=== PATIENT | female | born 1950 | race Caucasian/White ===

== ENCOUNTER 2016-04-07 14:36 | Inpatient (IN) | payer OTHER ==
[~2016-04-07] VITALS: Ht 167.6 cm; Wt 103.0 kg
[~2016-04-07 14:36] MED LIST: ALBINSX NEB; AMIO200T4 PO; CLOP1TAB15 PO; CRG3125 PO; DOCU-94 PO; FAMO20TA11 PO; INSU3INJ3 SQ; IPRASOL4 INH; LEVO125T72 PO; LISI2.5T5 PO; MAGNSUS5 PO; MIRT30TA3 PO; NVLGI SC; NYSS5 PO; OXYC1TAB3 PO; PARO20TA4 PO; PRAM0.754 PO; PRD20 PO; PRENTAB26 PO; PROTEIN PO; ROSU20TA PO; SPR25 PO; TMF75 PO; VENL150C PO
[2016-04-07] MEDS ORDERED: SODIUM CHLORIDE 0.9% 500ML 500 ML IV STA (15:05)
[2016-04-07] MEDS ORDERED: LSN25 PO (15:20)
[2016-04-07] MEDS ORDERED: SYN137 PO (15:20)
[2016-04-07] MEDS ORDERED: ROSU20TA22 PO (15:20)
[2016-04-07] MEDS ORDERED: PXL20 PO (15:20)
[2016-04-07] MEDS ORDERED: EFFSR150 PO (15:20)
[2016-04-07] MEDS ORDERED: EFFSR75 PO (15:20)
[2016-04-07] MEDS ORDERED: FAMO20TA9 PO (15:20)
[2016-04-07] MEDS ORDERED: CARV3.122 PO (15:20)
[2016-04-07] MEDS ORDERED: CRD200 PO (15:20)
[2016-04-07] MEDS ORDERED: INSU1INJ32 SC (15:20)
[2016-04-07] MEDS ORDERED: PLV75 PO (15:20)
[2016-04-07] MEDS ORDERED: SPIR25TA PO (15:29)
[2016-04-07] MEDS ORDERED: ERGO500037 PO (15:34)
[2016-04-07] MEDS ORDERED: SODIUM CHLORIDE 0.9% 1000ML 1,000 ML IV STA ×2 (15:34)
[2016-04-07] MEDS ORDERED: Proair HFA INH (15:34)
--- NOTE | 2016-04-07 15:35 | DIAGNOSTIC IMAGING REPORT ---
SINGLE VIEW CHEST CLINICAL HISTORY: Hyperglycemia. FINDINGS: An AP, portable, upright chest radiograph is compared to study dated 06/01/2015. The examination is degraded by portable technique, large body habitus, and patient rotation. The patient is status post midline sternotomy. The heart is normal for projection and there is atherosclerotic calcification of the thoracic aorta. The pulmonary vasculature is noncongested. There is chronic elevation of the left hemidiaphragm with left basilar atelectasis. Chronic interstitial thickening is unchanged. There is no evidence of airspace consolidation or pleural effusion. No pneumothorax is seen. The skeletal structures are osteopenic. The bony thorax is grossly intact. Surgical anchors are present in the right humeral head. IMPRESSION: No acute cardiopulmonary abnormality. Electronically signed by: Andrew Navarro M.D. 04/07/2016 3:33 PM Dictated Date/Time: 04/07/2016 3:31 PM
[2016-04-07] MEDS ORDERED: ASPI81TA85 PO (15:36)
[2016-04-07] MEDS ORDERED: MULT1CAP7 PO (15:36)
[2016-04-07 16:17] LABS: ALKALINE PHOSPHATASE 127 U/L (45-117); ALT/SGPT 20 U/L (12-78); AST/SGOT 17 U/L (15-37); BETA-HYDROXYBUTYRATE 4.14 mg/dL (0.2-2.81); BLOOD UREA NITROGEN 41 mg/dl (7-18); BUN/CREATININE RATIO 23.9 (10-20); CALCIUM 9.2 mg/dl (8.5-10.1); CARBON DIOXIDE 26 mmol/L (21-32); CHLORIDE 86 mmol/L (98-107); GLUCOSE 519 mg/dl (70-99); POTASSIUM 4.1 mmol/L (3.5-5.1); SODIUM 125 mmol/L (136-145)
[2016-04-07] MEDS ORDERED: NovoLIN-R INSULIN PER UNIT CHARGE IV STA (16:51)
[2016-04-07 16:52] LABS: ALB/GLOB RATIO 0.3 (0.9-2)
[2016-04-07 17:24] LABS: HEMATOCRIT 35.4 % (37-47); MEAN CELL VOLUME 82.9 fL (80-100); MEAN CORPUSCULAR HEMOGLOBIN 29.7 pg (25-34); MEAN CORPUSCULAR HGB CONC 35.9 g/dl (32-36); RED BLOOD COUNT 4.27 M/uL (4.2-5.4)
[2016-04-07] MEDS ORDERED: OXYB5TAB74 PO (17:32)
[2016-04-07] MEDS ORDERED: PREG150C PO ×2 (17:42)
[2016-04-07 17:50] LABS: LYMPH ABS # 0.62 K/uL (1.2-3.4); LYMPHOCYTE % 3.5 %; NEUTROPHILS % 90.4 %; SPHEROCYTE 1+
[2016-04-07 18:22] LABS: COMPLETE YES; MEAN PLATELET VOLUME 12.4 fL (7.4-10.4); PLATELET COUNT 119 K/uL (130-400)
[2016-04-07 18:27] LABS: URINE APPEARANCE TURBID (CLEAR); URINE BILIRUBIN NEG (NEG); URINE COLOR YELLOW; URINE EPITHELIAL CELL AUTO 20-30 /lpf (0-5); URINE NITRITE NEG (NEG); URINE SPECIFIC GRAVITY 1.015 (1.000-1.030); UROBILINOGEN NEG (NEG); ZZUR CULT IF INDIC CLEAN CATCH YES
[2016-04-07 18:28] LABS: MANUAL MICROSCOPIC REQUIRED? NO; REVIEW REQ? YES
[2016-04-07 18:46] LABS: URINE PATH CASTS 1-5 GRANULAR CASTS /lpf (0)
[2016-04-07] MEDS ORDERED: ONDANSETRON INJ 2 MG/ML 2 ML VIAL IV PRN (19:15)
[2016-04-07] MEDS ORDERED: PIPERACILL/TAZOBAC IV 3.375 GM in DEXTROSE 5% 100ML 100 ML IV ONE (19:15)
[2016-04-07] MEDS ORDERED: POLYETHYLENE (MIRALAX) 17 GM PACK PO PRN (19:30)
[2016-04-07] MEDS ORDERED: GLUCOSE 10 TABS/TUBE PO PRN (19:45)
[2016-04-07] MEDS ORDERED: GLUCOSE 40% GEL 15 GM TUBE PO PRN (19:45)
[2016-04-07] MEDS ORDERED: GLUCAGON FOR INJ 1 MG VIAL SQ PRN (19:45)
[2016-04-07] MEDS ORDERED: DEXTROSE 50% 50 ML SYR IV PRN (19:45)
[2016-04-07 20:08] LABS: INR 1.1 (0.9-1.1); PROTHROMBIN TIME (PATIENT) 12.3 SECONDS (9.0-12.0)
[2016-04-07] MEDS ORDERED: NovoLOG PER UNIT CHARGE SC ONE (20:15)
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
[2016-04-07] MEDS ORDERED: TRAM-10 PO (20:36)
[2016-04-07] MEDS ORDERED: NVLGI/PEN SQ (20:41)
[2016-04-07] MEDS ORDERED: PIPERACILL/TAZOBAC CONSULT ACTIVE PRN (20:45)
[2016-04-07] MEDS ORDERED: INSULIN GLARGINE PER UNIT 35 UNITS in SYRINGE 0 ML SC SCH (21:00)
[2016-04-07] MEDS ORDERED: PIPERACILL/TAZOBAC IV 4.5 GM in DEXTROSE 5% 100ML IV ONE (21:30)
[2016-04-07 21:45] VITALS: PULSE 78; O2SAT 93
[2016-04-07] MEDS: ALBUT/IPRATROP 3MG/0.5MG NEB 3 ML VIAL INH SCH (21:45)
[2016-04-07] MEDS: BUDESONIDE 0.5 MG/2 ML VIAL (PULMICORT) INH SCH (21:45)
[2016-04-07] MEDS ORDERED: PIPERACILL/TAZOBAC IV 3.375 GM in DEXTROSE 5% 100ML 100 ML IV SCH (22:00)
[2016-04-07] MEDS: OXYBUTYNIN CHLORIDE 5 MG TAB PO SCH (22:24)
[2016-04-07] MEDS: PREGABALIN 150 MG CAP PO SCH (22:24)
[2016-04-07] MEDS: SODIUM CHLORIDE 0.9% 1000ML 1,000 ML IV SCH (22:25)
[2016-04-07] MEDS: FAMOTIDINE 20 MG TAB PO SCH (22:26)
[2016-04-07] MEDS: MIRTAZAPINE TAB 15 MG TAB PO SCH (22:26)
[2016-04-07] MEDS: PRAMIPEXOLE DIHYDROCHLORIDE 0.25MG TAB PO SCH (22:27)
[2016-04-07] MEDS: INSULIN ASPART 100 UNITS/ML 3 ML PEN SC SCH (22:33)
[2016-04-07] MEDS: HEPARIN SOD 5000 UNIT/0.5 ML CARP SQ SCH (22:33)
[2016-04-07] MEDS: INSULIN GLARGINE SOLOSTAR 100 UNITS/ML 3 ML PEN SC SCH (22:34)
--- NOTE | 2016-04-07 22:37 | EMERGENCY ROOM VISIT NOTE ---
History Report prepared by Annmarie: [place] Curiel Under the Supervision of: Dr. Ken Verma M.D. First contact with patient: 15:24 Chief Complaint: HYPERGLYCEMIA Stated Complaint: ILLNESS/HYPERGLYCEMIA Nursing Triage Summary: PT HERE VIA ALS FROM HOME WITH INCREASED WEAKNESS AND ELEVATED BLOOD SUGAR. PT DENIES ANY NEW PAIN, STATES HAVING LOW BACK PAIN ACROSS FLANK AREAS. PT STATES SLIGHT SOB, HAS SOME SCATTERED RALES. HAS FELT FEVERISH INTERMITTENTLY History of Present Illness The patient is a 65 year old female who presents to the Emergency Room with complaints of worsening hyperglycemia starting four days ago. The patient currently rates her discomfort as a 4/10 in severity. She states that she has been urinating a lot recent;y, however she states that this is normal. The patient states that she has additionally been having a cough. Per the nursing staff, the patient's glucose level was in the 500s. The patient states that she has gotten new insulin, and it has been having some troubles. Per the nursing staff, the patient has not taken her insulin yet today. Pt denies LOC, headache , fevers, chills, diaphoresis, visual changes, neck pain, chest pain, breathing difficulties, nausea, vomiting, abdominal pain, back pain, melena, hematochezia , numbness, weakness, lymphadenopathy, rash, or other complaints. Source of History: patient, nursing staff Onset: four days ago Position: other (global) Symptom Intensity: 4/10 Quality: other (hyperglycemia) Timing: worsening Associated Symptoms: + cough, + urinary symptoms Review of Systems See HPI for pertinent positives and negatives. A total of ten systems were reviewed and were otherwise negative. Past Medical & Surgical Medical Problems: (1) BLANCA (acute kidney injury) (2) Asthma (3) Benign hypertension (4) Dehydration (5) Diabetes mellitus (6) GERD (gastroesophageal reflux disease) (7) Hyperglycemia (8) Hyperlipidemia (9) Hypomagnesemia (10) Influenza A with pneumonia (11) Pneumonia (12) Pneumonia involving right lung (13) UTI (urinary tract infection) Family History No pertinent family history Social History Smoking Status: Never Smoker Alcohol Use: none Drug Use: none Marital Status: single Housing Status: skilled nursing Occupation Status: unemployed Current/Historical Medications Scheduled Amiodarone HCl (Amiodarone HCl), 200 MG PO DAILY Aspirin (Aspirin Dr), 81 MG PO DAILY Carvedilol (Coreg), 3.125 MG PO BIDM Clopidogrel Bisulfate (Clopidogrel), 75 MG PO DAILY Ergocalciferol (Vitamin D 43855 Unit), 50,000 INTER.UNIT PO WK Famotidine (Pepcid), 20 MG PO QPM Insulin Aspart (Novolog Flexpen), 26 UNITS SQ WM Insulin Degludec (Tresiba Flextouch), 60 UNITS SC HS Levothyroxine Sodium (Levothyroxine Sodium), 137 MCG PO DAILY Lisinopril (Lisinopril), 2.5 MG PO DAILY Mirtazapine (Remeron), 30 MG PO HS Multiple Vitamins W/ Minerals (Multi For Her 50+), 1 CAP PO DAILY Oxybutynin Chloride (Ditropan), 5 MG PO BID Paroxetine (Paroxetine HCl), 20 MG PO DAILY Pramipexole Dihydrochloride (Pramipexole Dihydrochlori), 0.75 MG PO QPM Pregabalin (Lyrica), 150 MG PO QAM Pregabalin (Lyrica), 300 MG PO HS Rosuvastatin Calcium (Rosuvastatin Calcium), 20 MG PO DAILY Spironolactone (Aldactone), 25 MG PO BID Venlafaxine Hcl (Effexor Extended Rel), 75 MG PO QAM Venlafaxine Hcl (Effexor Extended Rel), 150 MG PO QAM Scheduled PRN Albuterol Sulf (Albuterol Sulfate), 1 VIAL NEB Q4-6HRS PRN for Wheezing Tramadol (Ultram), 50 MG PO Q8 PRN for Pain [Proair HFA], 2 PUFFS INH Q4-6HRS PRN for Shortness of Breath Allergies Coded Allergies: Clindamycin (Verified Allergy, Severe, RASH, DELUSIONAL, CONVULSIONS, 04/17) Eggs or Egg-derived Products (Verified Allergy, Severe, ANAPHYLAXIS, ) NO FLU VAC. Note: 04/05/12, pt ate eggs for breakfast, dietary requested that pharmacy add egg food allergy. aj Furosemide (Verified Allergy, Severe, ANAPHYLAXIS, 04/17/15) Sulfamethoxazole w/Trimethoprim (Verified Allergy, Intermediate, RASH, ) Amoxicillin (Verified Allergy, Unknown, ., 04/17/15) Atorvastatin (Verified Allergy, Unknown, acute renal failure, 04/17/15) Clavulanic Acid (Verified Allergy, Unknown, ., 04/17/15) Egg (Verified Allergy, Unknown, _, 04/17/15) 04/05/12: ADDED PER DIETARY REQUEST. Latex1 -Allergic Contact Dermititis (Verified Allergy, Unknown, RASH, 04/17) Penicillins (Verified Allergy, Unknown, unknown, 04/17/15) Triamcinolone (Verified Allergy, Unknown, RASH, 04/17/15) Diclofenac (Verified Adverse Reaction, Severe, SKIN SLOTHED FROM HEEL, ) Isopropyl Alcohol (Verified Adverse Reaction, Severe, SKIN SLOTHED FROM HEEL, 04/17/15) Propylene Glycol (Verified Adverse Reaction, Severe, SKIN SLOTHED FROM HEEL, 04/17/15) Acetaminophen (Verified Adverse Reaction, Mild, VOMITING, 04/17/15) Physical Exam Vital Signs Date Time Temp Pulse Resp B/P Pulse Ox O2 Delivery O2 Flow Rate FiO2 04/07/16 18:36 25 04/07/16 17:36 78 27 100 04/07/16 17:08 77 20 114/63 100 Nasal Cannula 3.0 04/07/16 17:07 114/63 04/07/16 16:36 75 16 94 04/07/16 15:58 123/94 04/07/16 15:36 81 19 98 04/07/16 15:30 118/62 04/07/16 15:07 81 04/07/16 14:52 37.6 85 20 115/58 98 Room Air 04/07/16 14:39 115/58 Physical Exam GENERAL: Awake, alert, tired appearing, in no distress HENT: Very dry mucous membranes. Normocephalic, atraumatic. Oropharynx unremarkable. EYES: Normal conjunctiva. Sclera non-icteric. NECK: Supple. No nuchal rigidity. FROM. No JVD. RESPIRATORY: Clear to auscultation. CARDIAC: Regular rate, normal rhythm. Extremities warm and well perfused. Pulses equal. ABDOMEN: Soft, non-distended. No tenderness to palpation. No rebound or guarding. No masses. RECTAL: Deferred. MUSCULOSKELETAL: Chest examination reveals no tenderness. The back is symmetrical on inspection without obvious abnormality. There is no CVA tenderness to palpation. No joint edema. LOWER EXTREMITIES: Calves are equal size bilaterally and non-tender. No edema. No discoloration. NEURO: Normal sensorium. No sensory or motor deficits noted. SKIN: No rash or jaundice noted. Medical Decision & Procedures ER Provider Diagnostic Interpretation: X-ray: Per my interpretation, radiologist review. SINGLE VIEW CHEST CLINICAL HISTORY: Hyperglycemia. FINDINGS: An AP, portable, upright chest radiograph is compared to study dated 06/01/2015. The examination is degraded by portable technique, large body habitus, and patient rotation. The patient is status post midline sternotomy. The heart is normal for projection and there is atherosclerotic calcification of the thoracic aorta. The pulmonary vasculature is noncongested. There is chronic elevation of the left hemidiaphragm with left basilar atelectasis. Chronic interstitial thickening is unchanged. There is no evidence of airspace consolidation or pleural effusion. No pneumothorax is seen. The skeletal structures are osteopenic. The bony thorax is grossly intact. Surgical anchors are present in the right humeral head. IMPRESSION: No acute cardiopulmonary abnormality. Electronically signed by: Andrew Navarro M.D. 04/07/2016 3:33 PM Dictated Date/Time: 04/07/2016 3:31 PM Laboratory Results 04/07/16 16:20 Red Blood Count 4.27, Mean Corpuscular Volume 82.9, Mean Corpuscular Hemoglobin 29.7, Mean Corpuscular Hemoglobin Concent 35.9, Mean Platelet Volume 12.4 04/07/16 15:30 Test 04/07/16 15:30 04/07/16 16:20 04/07/16 17:10 04/07/16 18:00 Anion Gap 13.0 mmol/L (3-11) Est Creatinine Clear Calc Drug Dose 41.0 ml/min Estimated GFR () 36.6 Estimated GFR (Non- 31.5 BUN/Creatinine Ratio 23.9 (10-20) Calcium Level 9.2 mg/dl (8.5-10.1) Total Bilirubin 0.5 mg/dl (0.2-1) Aspartate Amino Transf (AST/SGOT) 17 U/L (15-37) Alanine Aminotransferase (ALT/SGPT) 20 U/L (12-78) Alkaline Phosphatase 127 U/L (45-117) Troponin I < 0.015 ng/ml (0-0.045) Total Protein 7.3 gm/dl (6.4-8.2) Albumin 1.8 gm/dl (3.4-5.0) Globulin 5.5 gm/dl (2.5-4.0) Albumin/Globulin Ratio 0.3 (0.9-2) Beta-Hydroxybutyric Acid 4.14 mg/dL (0.2-2.81) White Blood Count 17.70 K/uL (4.8-10.8) Red Blood Count 4.27 M/uL (4.2-5.4) Hemoglobin 12.7 g/dL (12.0-16.0) Hematocrit 35.4 % (37-47) Mean Corpuscular Volume 82.9 fL (80-100) Mean Corpuscular Hemoglobin 29.7 pg (25-34) Mean Corpuscular Hemoglobin Concent 35.9 g/dl (32-36) Platelet Count 119 K/uL (130-400) Mean Platelet Volume 12.4 fL (7.4-10.4) RDW Standard Deviation 39.5 fL (36.4-46.3) RDW Coefficient of Variation 13.1 % (11.5-14.5) Nucleated RBC Absolute Count (auto) 0.03 K/uL (0-0) Neutrophils % (Manual) 90.4 % Lymphocytes % (Manual) 3.5 % Monocytes % (Manual) 6.1 % Nucleated Red Blood Cells % 0.2 % Neutrophils # (Manual) 16.00 K/uL (1.4-6.5) Total Absolute Neutrophils 16.00 K/uL (1.4-6.5) Lymphocytes # (Manual) 0.62 K/uL (1.2-3.4) Total Absolute Lymphocytes 0.62 K/uL (1.2-3.4) Monocytes # (Manual) 1.08 K/uL (0.11-0.59) Spherocytes 1+ Prothrombin Time 12.3 SECONDS (9.0-12.0) Prothromb Time International Ratio 1.1 (0.9-1.1) Influenza Type A Antigen Neg for Influ A (NEG) Influenza Type B Antigen Neg for Influ B (NEG) Urine Color YELLOW Urine Appearance TURBID (CLEAR) Urine pH 5.0 (4.5-7.5) Urine Specific Mchenry 1.015 (1.000-1.030) Urine Protein 2+ (NEG) Urine Glucose (UA) 3+ (NEG) Urine Ketones NEG (NEG) Urine Occult Blood 2+ (NEG) Urine Nitrite NEG (NEG) Urine Bilirubin NEG (NEG) Urine Urobilinogen NEG (NEG) Urine Leukocyte Esterase TRACE (NEG) Urine WBC (Auto) >30 /hpf (0-5) Urine RBC (Auto) 5-10 /hpf (0-4) Urine Hyaline Casts (Auto) 5-10 /lpf (0-5) Urine Epithelial Cells (Auto) 20-30 /lpf (0-5) Urine Bacteria (Auto) 4+ (NEG) Urine Pathogenic Casts 1-5 GRANULAR CASTS /lpf (0) Laboratory results reviewed by me Medications Administered Medications (Trade) Dose Ordered Sig/Frieda Route Start Time Stop Time Status Last Admin Dose Admin Sodium Chloride 500 ml @ 999 mls/hr Q31M STAT IV 04/07/16 15:05 04/07/16 15:35 DC 04/07/16 15:05 999 MLS/HR Sodium Chloride 1,000 ml @ 999 mls/hr Q1H1M STAT IV 04/07/16 15:34 04/07/16 16:34 DC 04/07/16 15:34 999 MLS/HR Sodium Chloride (Nss 1000ml) 1,000 ml @ 200 mls/hr Q5H STAT IV 04/07/16 15:34 04/07/16 20:57 DC 04/07/16 15:34 200 MLS/HR Insulin Human Regular (novoLIN-R U-100 PER UNIT) 10 units NOW STAT IV 04/07/16 16:51 04/07/16 16:53 DC 04/07/16 17:04 10 UNITS ECG Indication: other (hyperglycemia) Rate (beats per minute): 83 Rhythm: normal sinus Findings: Q waves (Inferior), no acute ischemic change, no ectopy, other (LVH) ED Course 1505: Sodium Chloride 500 ml @ 999 mls/hr IV 1524: The patient was evaluated in room A10. A complete history and physical exam was performed. 1534: Sodium Chloride 1000 ml @ 200 mls/hr IV, Sodium Chloride 1000 ml @ 999 mls /hr IV 1551: Novolin-R U-100 per unit 10 units IV 1723: I reevaluated the patient, and she was resting 1810: I discussed the patient's case with Dr. Alfonso. He is going to evaluate the patient for further treatment 1814: I reassessed the patient, and she states that she was feeling a little better Medical Decision Triage Nursing notes reviewed. The patient's presentation and history were concerning for hyperglycemia and fever. Etiologies such as metabolic, infection, hypo/hyperglycemia, electrolyte abnormalities, cardiac sources, intracerebral event, toxicologic, neurologic, as well as others were entertained. The patient was evaluated. She was dry on physical examination. 2 L of IV fluids were initiated. The patient had blood work obtained. A pseudohyponatremia was noted on chemistry panel. The patient had acute kidney injury with a creatinine that went from 0.8-1.7. The patient's CBC was unremarkable. The patient had a negative troponin and LFTs. Chemistry panel was concerning for severe hyperglycemia. No acidosis present.. The patient had ketosis present. The patient's urinalysis is pending. The patient was given IV insulin 10 units. On reassessment her sugar was slowly coming down the patient was feeling somewhat better. She was sick for many days. Consultation was made with the biological aide. The patient will be admitted. The chart was completed utilizing [employer] Speech voice recognition software. Grammatical errors, random word insertions, pronoun errors, and incomplete sentences are an occasional consequence of this system due to software limitations, ambient noise, and hardware issues. Any formal questions or concerns about the content, text, or information contained within the body of this dictation should be directly addressed to the physician for clarification. Consults Time Called: 1800 Consulting Physician: Dr. Alfonso Returned Call: [phone] I discussed the patient's case with Dr. Alfonso. He is going to evaluate the patient for further treatment Impression Primary Impression: Hyperglycemia Additional Impressions: Dehydration Acute kidney injury Scribe Attestation The scribe's documentation has been prepared under my direction and personally reviewed by me in its entirety. I confirm that the note above accurately reflects all work, treatment, procedures, and medical decision making performed by me. Departure Information Dispostion Being Evaluated By Hospitalist Referrals RV. Gerard MD (PCP) Problem Qualifiers
[2016-04-07 23:39] VITALS: PULSE 78; O2SAT 94
[2016-04-08] VITALS (11 sets, daily range): BP systolic 93–146; BP diastolic 63–75; PULSE 70–85; TEMP 36.5–37.3; O2SAT 90–96; BMI 36.8; BMI 36.6
[2016-04-08] MEDS: PIPERACILL/TAZOBAC IV 4.5 GM in DEXTROSE 5% 100ML IV SCH ×3 (04:10→20:20)
[2016-04-08] MEDS: HEPARIN SOD 5000 UNIT/0.5 ML CARP SQ SCH ×3 (06:40→20:29)
[2016-04-08] MEDS: LEVOTHYROXINE 137 MCG TAB PO SCH (06:47)
[2016-04-08] MEDS: SODIUM CHLORIDE 0.9% 1000ML 1,000 ML IV SCH ×2 (06:47→17:41)
[2016-04-08 07:25] LABS: INR 1.1 (0.9-1.1); PARTIAL THROMBOPLASTIN RATIO 1.2; PROTHROMBIN TIME (PATIENT) 11.8 SECONDS (9.0-12.0)
[2016-04-08] MEDS: ALBUT/IPRATROP 3MG/0.5MG NEB 3 ML VIAL INH SCH ×5 (07:33→19:20)
[2016-04-08] MEDS: BUDESONIDE 0.5 MG/2 ML VIAL (PULMICORT) INH SCH ×2 (07:33→19:20)
[2016-04-08 07:57] LABS: ALB/GLOB RATIO 0.4 (0.9-2); BUN/CREATININE RATIO 34.4 (10-20); CALCIUM 8.6 mg/dl (8.5-10.1); CREATININE 1.4 mg/dl (0.60-1.20); POTASSIUM 3.7 mmol/L (3.5-5.1)
[2016-04-08 08:17] LABS: ESTIMATED AVERAGE GLUCOSE 392 mg/dl; HA1C FLAG Normal (Normal)
[2016-04-08] MEDS: TIOTROPIUM BROMIDE 5 PUFF/90 MCG INH INH SCH (09:11)
[2016-04-08] MEDS: INSULIN ASPART 100 UNITS/ML 3 ML PEN SC SCH ×4 (09:12→20:29)
[2016-04-08] MEDS: CARVEDILOL 3.125 MG TAB PO SCH ×2 (09:13→18:04)
[2016-04-08] MEDS: AMIODARONE 200 MG TAB PO SCH (09:13)
[2016-04-08] MEDS: ASPIRIN 81 MG ECTAB PO SCH (09:14)
[2016-04-08] MEDS: ROSUVASTATIN CALCIUM 20 MG TAB PO SCH (09:14)
[2016-04-08] MEDS: OXYBUTYNIN CHLORIDE 5 MG TAB PO SCH ×2 (09:14→20:22)
[2016-04-08] MEDS: VENLAFAXINE HCL XR 150 MG CAPXR PO SCH (09:15)
[2016-04-08] MEDS: CLOPIDOGREL BISULFATE 75 MG TAB PO SCH (09:15)
[2016-04-08] MEDS: VENLAFAXINE HCL XR 75 MG CAPXR PO SCH (09:15)
[2016-04-08] MEDS: PAROXETINE 20 MG TAB PO SCH (09:15)
[2016-04-08] MEDS: CEROVITE ADV FORMULA TAB PO SCH (09:16)
[2016-04-08] MEDS: INSULIN GLARGINE SOLOSTAR 100 UNITS/ML 3 ML PEN SC SCH ×2 (09:18→20:30)
[2016-04-08] MEDS: PREGABALIN 150 MG CAP PO SCH ×2 (09:19→20:34)
[2016-04-08 09:46] LABS: BASO % 0.1 %; BASO ABS # 0.02 K/uL (0-0.2); COMPLETE YES; EOS % 0.3 %; HEMATOCRIT 34.7 % (37-47); IG% 0.4 %; LYMPH % 7.1 %; LYMPH ABS # 1.24 K/uL (1.2-3.4); MEAN CELL VOLUME 82.6 fL (80-100); MEAN CORPUSCULAR HEMOGLOBIN 29.5 pg (25-34); MEAN CORPUSCULAR HGB CONC 35.7 g/dl (32-36); MEAN PLATELET VOLUME 12.6 fL (7.4-10.4); MONO % 7.3 %; NEUT % 84.8 %; PLATELET COUNT 116 K/uL (130-400); PLT ESTIMATE DECREASED; WHITE BLOOD COUNT 17.56 K/uL (4.8-10.8)
--- NOTE | 2016-04-08 13:57 | Clinical Documentation Query ---
CLINICAL DOCUMENTATION QUERY Dr. PAN, In your clinical opinion is this patient being managed for: ( ) Sepsis POA in the setting of pneumonia and UTI ( ) Other explanation of clinical findings (Please Explain) ( ) Unable to determine (Please Define) ( ) Need to Discuss ( ) Not Agree The medical record reflects the following clinical findings, treatment, and risk factors. Clinical Indicators: 65 yo female presenting with worsening hyperglycemia. Diagnosed with suspected pneumonia and UTI. Prelim blood and urine cx showing gram negative bacilli. WBC 17.70, vital signs 37.6-85-20, 115/58. Treatment: IV NSS bolus, final pending blood and urine cx, IV zosyn, IV fluids Risk Factors: pneumonia, UTI, uncontrolled DM Please clarify and document your clinical opinion in the progress notes and discharge summary. Terms such as "probable", "suspected", "likely", "questionable", "possible", or "still to be ruled out" are acceptable. IF IN AGREEMENT, YOU MUST DOCUMENT ABOVE DIAGNOSTIC STATEMENT IN DAILY PROGRESS NOTES AND DISCHARGE SUMMARY. This document is not part of the patient's record. Thank You, Jessenia Mendez, RN [phone]
--- NOTE | 2016-04-08 13:59 | Clinical Documentation Query ---
CLINICAL DOCUMENTATION QUERY Dr. KELLOGG, In your clinical opinion is this patient being managed for: ( x ) Sepsis POA in the setting of pneumonia and UTI ( ) Other explanation of clinical findings (Please Explain) ( ) Unable to determine (Please Define) ( ) Need to Discuss ( ) Not Agree The medical record reflects the following clinical findings, treatment, and risk factors. Clinical Indicators: 65 yo female presenting with worsening hyperglycemia. Diagnosed with suspected pneumonia and UTI. Prelim blood and urine cx showing gram negative bacilli. WBC 17.70, vital signs 37.6-85-20, 115/58. Treatment: IV NSS bolus, final pending blood and urine cx, IV zosyn, IV fluids Risk Factors: pneumonia, UTI, uncontrolled DM Please clarify and document your clinical opinion in the progress notes and discharge summary. Terms such as "probable", "suspected", "likely", "questionable", "possible", or "still to be ruled out" are acceptable. IF IN AGREEMENT, YOU MUST DOCUMENT ABOVE DIAGNOSTIC STATEMENT IN DAILY PROGRESS NOTES AND DISCHARGE SUMMARY. This document is not part of the patient's record. Thank You, Jessenia Mendez, RN [phone]
[2016-04-08] MEDS ORDERED: PHARMACY GLYCEMIC MGMT CONSULT PRN (16:49)
--- NOTE | 2016-04-08 17:46 | ECHOCARDIOGRAM REPORT ---
*NOTICE TO RECEIVING DEMOCRAT AGENCY This information is strictly Confidential and protected under [place] law. [place] law prohibits you from making any further disclosure of this information unless further disclosure is expressly permitted by the written consent of the person to whom it pertains or is authorized by law. A general authorization for the release of medical or other information is not sufficient for this purpose. Hospital accepts no responsibility if the information is made available to any other person, INCLUDING THE PATIENT. Interpretation Summary * Name: HENRIETTA WATSON Study Date: 04/08/2016 07:31 AM BP: 119/67 mmHg * Patient Location: .4E\S\E415\S\1 HR: 70 * : 1950 (M/d/yyyy) Gender: Female Height: 66 in * Age: 65 yrs Ethnicity: CA Weight: 227 lb * Ordering Physician: Sabino Rowley * Referring Physician: Self, Referred * Performed By: Laurie Mccarthy RDCS * * Reason For Study: CHF * BSA: 2.1 m2 * History: CHF * -- Conclusions -- * Very technically limited study. * Left ventricular systolic function is moderately reduced. * There is moderate global hypokinesis of the left ventricle. * Ejection Fraction = 35-40%. * There is borderline concentric left ventricular hypertrophy. * Grade I diastolic dysfunction, (abnormal relaxation pattern). Procedure Details * A contrast injection of Definity was performed to improve assessment of LV function. * Contrast was injected into an intravenous site in the right arm. * One vial of Definity ultrasound contrast was diluted in normal saline to a total volume of 10 ml. A total of '2' ml of solution was administered during imaging. * Lot # [id number] of Definity utilized for procedure. * Expiration date FEB 11. * The attending nurse who injected the contrast agent was CAS PANIAGUA RN. Left Ventricle * The left ventricle is mildly dilated. * There is borderline concentric left ventricular hypertrophy. * Ejection Fraction = 35-40%. * Left ventricular systolic function is moderately reduced. * There is moderate global hypokinesis of the left ventricle. Right Ventricle * The right ventricle is not well visualized. * Right ventricular function cannot be assessed due to poor image quality. Atria * The left atrium is mildly dilated. * Right atrium not well visualized. Mitral Valve * The mitral valve is grossly normal. * Significant mitral regurgitation is absent. Tricuspid Valve * The tricuspid valve is not well visualized, but is grossly normal. * Significant tricuspid regurgitation is absent. Aortic Valve * The aortic valve is not well visualized. * The aortic valve opens well. * There is no significant aortic regurgitation. Pulmonic Valve * The pulmonary valve is not well seen, but the Doppler examination is normal without significant regurgitation or stenosis. Great Vessels * The aortic root is normal size. * The pulmonary is not well visualized. Pericardium/Pleural * There is no pericardial effusion. Great Vessels * Normal inferior vena cava size and collapsability with sniff indicates a normal right atrial pressure of 3 mmHg Left Ventricular Diastolic Function * Grade I diastolic dysfunction, (abnormal relaxation pattern). MMode 2D Measurements and Calculations IVSd 1.0 cm IVSs 1.3 cm LVIDd 5.2 cm LVIDs 4.2 cm LVPWd 1.1 cm LVPWs 1.7 cm IVS/LVPW 0.92 FS 18.5 % EDV(Teich) 127.6 ml ESV(Teich) 79.1 ml EF(Teich) 38.0 % EDV(cubed) 138.0 ml ESV(cubed) 74.7 ml EF(cubed) 45.9 % % IVS thick 28.3 % % LVPW thick 55.1 % LV mass(C)d 206.4 grams LV mass(C)dI 97.8 grams/m\S\2 LV mass(C)s 250.7 grams LV mass(C)sI 118.8 grams/m\S\2 SV(Teich) 48.5 ml SI(Teich) 23.0 ml/m\S\2 SV(cubed) 63.3 ml SI(cubed) 30.0 ml/m\S\2 Ao root diam 3.4 cm Ao root area 8.9 cm\S\2 LA dimension 3.9 cm LA/Ao 1.2 LVAd ap4 37.6 cm\S\2 LVLd ap4 8.9 cm EDV(MOD-sp4) 135.1 ml EDV(sp4-el) 135.3 ml LVAs ap4 27.4 cm\S\2 LVLs ap4 7.3 cm ESV(MOD-sp4) 86.6 ml ESV(sp4-el) 87.0 ml EF(MOD-sp4) 35.9 % EF(sp4-el) 35.7 % SV(MOD-sp4) 48.5 ml SI(MOD-sp4) 23.0 ml/m\S\2 SV(sp4-el) 48.4 ml SI(sp4-el) 22.9 ml/m\S\2 Doppler Measurements and Calculations MV E max paulino 83.4 cm/sec MV A max paulino 108.0 cm/sec MV E/A 0.77 MV dec time 0.18 sec Ao V2 max 152.0 cm/sec Ao max PG 9.2 mmHg Ao max PG (full) 6.0 mmHg LV V1 max PG 3.2 mmHg LV V1 max 89.9 cm/sec
[2016-04-08] MEDS ORDERED: INSULIN REGULAR 10 UNITS in SYRINGE 9.9 ML IV SCH (18:00)
[2016-04-08] MEDS: FAMOTIDINE 20 MG TAB PO SCH (20:21)
[2016-04-08] MEDS: PRAMIPEXOLE DIHYDROCHLORIDE 0.25MG TAB PO SCH (20:22)
[2016-04-08] MEDS: MIRTAZAPINE TAB 15 MG TAB PO SCH (20:22)
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
[2016-04-09] VITALS (8 sets, daily range): BP systolic 121–128; BP diastolic 62–86; PULSE 65–80; TEMP 36.3–37; O2SAT 93–96; Ht 167.6 cm; Wt 103.0 kg
[2016-04-09] MEDS: PIPERACILL/TAZOBAC IV 4.5 GM in DEXTROSE 5% 100ML IV SCH ×2 (03:41→12:40)
[2016-04-09] MEDS: SODIUM CHLORIDE 0.9% 1000ML 1,000 ML IV SCH ×3 (03:41→22:56)
[2016-04-09] MEDS: LEVOTHYROXINE 137 MCG TAB PO SCH (06:30)
[2016-04-09] MEDS: HEPARIN SOD 5000 UNIT/0.5 ML CARP SQ SCH ×3 (06:30→20:39)
[2016-04-09] MEDS: ALBUT/IPRATROP 3MG/0.5MG NEB 3 ML VIAL INH SCH ×4 (07:13→19:52)
[2016-04-09] MEDS: BUDESONIDE 0.5 MG/2 ML VIAL (PULMICORT) INH SCH (07:13)
[2016-04-09] MEDS: AMIODARONE 200 MG TAB PO SCH (07:53)
[2016-04-09] MEDS: ASPIRIN 81 MG ECTAB PO SCH (07:53)
[2016-04-09] MEDS: ROSUVASTATIN CALCIUM 20 MG TAB PO SCH (07:53)
[2016-04-09] MEDS: OXYBUTYNIN CHLORIDE 5 MG TAB PO SCH ×2 (07:53→20:32)
[2016-04-09] MEDS: CEROVITE ADV FORMULA TAB PO SCH (07:53)
[2016-04-09] MEDS: CLOPIDOGREL BISULFATE 75 MG TAB PO SCH (07:53)
[2016-04-09] MEDS: PAROXETINE 20 MG TAB PO SCH (07:53)
[2016-04-09] MEDS: VENLAFAXINE HCL XR 75 MG CAPXR PO SCH (07:53)
[2016-04-09] MEDS: VENLAFAXINE HCL XR 150 MG CAPXR PO SCH (07:53)
[2016-04-09] MEDS: TIOTROPIUM BROMIDE 5 PUFF/90 MCG INH INH SCH (07:54)
[2016-04-09] MEDS: CARVEDILOL 3.125 MG TAB PO SCH ×2 (07:54→17:38)
[2016-04-09] MEDS: INSULIN GLARGINE SOLOSTAR 100 UNITS/ML 3 ML PEN SC SCH ×2 (08:02→20:38)
[2016-04-09] MEDS: PREGABALIN 150 MG CAP PO SCH ×2 (08:02→20:39)
[2016-04-09] MEDS: INSULIN ASPART 100 UNITS/ML 3 ML PEN SC SCH ×4 (08:26→20:38)
[2016-04-09 08:47] LABS: HEMATOCRIT 36.4 % (37-47); MEAN CELL VOLUME 82.2 fL (80-100); MEAN CORPUSCULAR HEMOGLOBIN 28.4 pg (25-34); MEAN PLATELET VOLUME 12.9 fL (7.4-10.4); PLATELET COUNT 168 K/uL (130-400); RED BLOOD COUNT 4.43 M/uL (4.2-5.4); WHITE BLOOD COUNT 17.46 K/uL (4.8-10.8)
[2016-04-09 09:16] LABS: MEAN CORPUSCULAR HGB CONC 34.6 g/dl (32-36)
[2016-04-09 09:32] LABS: BUN/CREATININE RATIO 33.3 (10-20); CALCIUM 8.4 mg/dl (8.5-10.1); CREATININE 1.8 mg/dl (0.60-1.20); POTASSIUM 3.8 mmol/L (3.5-5.1)
[2016-04-09] MEDS: TRAMADOL HCL 50 MG TAB PO PRN (12:45)
--- NOTE | 2016-04-09 13:29 | Pharmacy Progress Note ---
Glycemic Control Intl Consult Date of Service Apr 09, 2016. Scope Glycemic Pharmacist consulted by Dr Butler on 04/08/16 for glycemic control and to write orders per [facility] inpatient glycemic control protocol Objective Weight (Kilograms): 103.000 Accuchecks BSG (last 24hrs): Test 04/08/16 16:17 04/08/16 19:57 04/09/16 08:30 Bedside Glucose 368 mg/dl (70-90) 237 mg/dl (70-90) Random Glucose 226 mg/dl (70-99) Laboratory Data (last 24hrs) Test 04/09/16 08:30 Anion Gap 12.0 mmol/L BUN/Creatinine Ratio 33.3 Blood Urea Nitrogen 60 mg/dl Creatinine 1.80 mg/dl Potassium Level 3.8 mmol/L Sodium Level 133 mmol/L White Blood Count 17.46 K/uL HbA1c Test 04/08/16 06:29 Hemoglobin A1c 15.3 % (4.5-5.6) H Recent Pertinent Medications Outpatient Anti-diabetic Regimen: * Tresiba 60 units SC hs, Novolog 26 units tid before meals * A1c = 15.3 % 04/08/16 The patient is currently receiving: * Basal insulin: Lantus 35 units every 12 hours, just increased to 40 units bid * Correctional Insulin: Novolog Correction per scale ACHS Goal Range: Low 140 mg/dL - High 180 mg/dL Correction Factor: 10 mg/dL/unit, just changed to 5 mg/dl/unit * Prandial insulin: Per carb ratio of 1 unit per 3 grams CHO consumed * Oral Agents: none Risk Factors for Insulin Resistance: * Steroids: no * Infection: sepsis, UTI, on Zosyn * Pressors: no * IVF: NS @100 ml/hr, Zosyn mixed in D5W * Recent Surgery: no * Diet: type 2 diabetic,AHA,low sodium, good po intake * Mechanical Ventilation: no Assessment & Plan ASSESSMENT: * ADA & AACE recommend a goal blood sugar range 140-180 mg/dl for the majority of critically ill & non-critically ill patients. However, more stringent targets may be selected in individual cases. * 65 yo type 2 diabetic, uncontrolled with significant insulin resistance. She received 96 units of insulin on 04/07 after admission, and 188 units on 04/08. BSG 's ranged 202-368 over past 24 hours. Trending down but still high. Will increase basal, continue tighter correction factor, and add 0200 BSG check. Keep goal range 140-180, since uncontrolled diabetic patient may experience hypoglycemic symptoms at higher than usual blood sugar. Will reassess in am. PLAN FOR INPATIENT GLYCEMIC CONTROL: * Increasing Lantus to 45 units SQ BID * Continuing correction factor 5 mg/dl/unit * Continuing carb ratio 1 unit per 3 grams CHO consumed * Continuing goal range Low 140 mg/dL - High 180 mg/dL * Please note that the plan above was derived based on current level of insulin resistance and hospital stress. These recommendations are appropriate for inpatient admission only. Plan of care upon discharge will need to be reassessed to avoid potential outpatient hypo/hyperglycemia. Thank you.
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
[2016-04-09] MEDS: MIRTAZAPINE TAB 15 MG TAB PO SCH (20:33)
[2016-04-09] MEDS: PRAMIPEXOLE DIHYDROCHLORIDE 0.25MG TAB PO SCH (20:33)
[2016-04-09] MEDS: FAMOTIDINE 20 MG TAB PO SCH (20:33)
[2016-04-10] VITALS (7 sets, daily range): BP systolic 108–123; BP diastolic 64–81; PULSE 65–74; TEMP 36.6–36.9; O2SAT 93–98
[2016-04-10] MEDS: INSULIN ASPART 100 UNITS/ML 3 ML PEN SC SCH ×5 (02:00→20:34)
[2016-04-10] MEDS: HEPARIN SOD 5000 UNIT/0.5 ML CARP SQ SCH (06:00)
[2016-04-10] MEDS: LEVOTHYROXINE 137 MCG TAB PO SCH (06:24)
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
[2016-04-10] MEDS: ALBUT/IPRATROP 3MG/0.5MG NEB 3 ML VIAL INH SCH ×4 (07:48→19:44)
[2016-04-10 08:15] LABS: BUN/CREATININE RATIO 39.5 (10-20); CALCIUM 8.5 mg/dl (8.5-10.1); CREATININE 1.5 mg/dl (0.60-1.20); POTASSIUM 4.3 mmol/L (3.5-5.1)
[2016-04-10] MEDS: TIOTROPIUM BROMIDE 5 PUFF/90 MCG INH INH SCH (08:24)
[2016-04-10] MEDS: ASPIRIN 81 MG ECTAB PO SCH (08:24)
[2016-04-10] MEDS: CLOPIDOGREL BISULFATE 75 MG TAB PO SCH (08:25)
[2016-04-10] MEDS: OXYBUTYNIN CHLORIDE 5 MG TAB PO SCH ×2 (08:25→20:28)
[2016-04-10] MEDS: PAROXETINE 20 MG TAB PO SCH (08:25)
[2016-04-10] MEDS: CEROVITE ADV FORMULA TAB PO SCH (08:25)
[2016-04-10] MEDS: AMIODARONE 200 MG TAB PO SCH (08:25)
[2016-04-10] MEDS: ROSUVASTATIN CALCIUM 20 MG TAB PO SCH (08:25)
[2016-04-10] MEDS: BUDESONIDE 0.5 MG/2 ML VIAL (PULMICORT) INH SCH ×2 (08:26→19:44)
[2016-04-10] MEDS: CARVEDILOL 3.125 MG TAB PO SCH ×2 (08:26→17:33)
[2016-04-10] MEDS: VENLAFAXINE HCL XR 75 MG CAPXR PO SCH (08:26)
[2016-04-10] MEDS: PREGABALIN 150 MG CAP PO SCH ×2 (08:30→20:28)
[2016-04-10] MEDS: VENLAFAXINE HCL XR 150 MG CAPXR PO SCH (08:31)
[2016-04-10] MEDS: INSULIN GLARGINE SOLOSTAR 100 UNITS/ML 3 ML PEN SC SCH ×2 (08:34→20:37)
[2016-04-10 09:27] LABS: HEMATOCRIT 35.1 % (37-47); MEAN CORPUSCULAR HEMOGLOBIN 29.2 pg (25-34); MEAN CORPUSCULAR HGB CONC 34.8 g/dl (32-36); MEAN PLATELET VOLUME 12.4 fL (7.4-10.4); PLATELET COUNT 226 K/uL (130-400); RED BLOOD COUNT 4.18 M/uL (4.2-5.4); WHITE BLOOD COUNT 17.62 K/uL (4.8-10.8)
[2016-04-10] MEDS ORDERED: CEFTRIAXONE SOD INJ 1 GM in DEXTROSE 5% ADD-VANTAGE 50ML 50 ML IV STA (12:35)
[2016-04-10] MEDS: SODIUM CHLORIDE 0.9% 1000ML 1,000 ML IV SCH (12:44)
[2016-04-10] MEDS ORDERED: CEFTRIAXONE SOD INJ 1 GM in DEXTROSE 5% ADD-VANTAGE 50ML 50 ML IV SCH (15:00)
[2016-04-10] MEDS ORDERED: HEPARIN SOD 5000 UNIT/0.5 ML CARP SQ ONE (18:00)
[2016-04-10] MEDS: FAMOTIDINE 20 MG TAB PO SCH (20:28)
[2016-04-10] MEDS: PRAMIPEXOLE DIHYDROCHLORIDE 0.25MG TAB PO SCH (20:28)
[2016-04-10] MEDS: MIRTAZAPINE TAB 15 MG TAB PO SCH (20:31)
[2016-04-11] VITALS (7 sets, daily range): BP systolic 117–147; BP diastolic 57–76; PULSE 65–80; TEMP 36.6–36.9; O2SAT 93–100
[2016-04-11] MEDS: SODIUM CHLORIDE 0.9% 1000ML 1,000 ML IV SCH ×3 (00:10→11:12)
[2016-04-11] MEDS: INSULIN ASPART 100 UNITS/ML 3 ML PEN SC SCH ×5 (02:00→20:56)
[2016-04-11] MEDS: TRAMADOL HCL 50 MG TAB PO PRN ×2 (06:24→16:01)
[2016-04-11] MEDS: LEVOTHYROXINE 137 MCG TAB PO SCH (06:25)
[2016-04-11 07:33] LABS: HEMATOCRIT 33.9 % (37-47); MEAN CELL VOLUME 84.1 fL (80-100); MEAN CORPUSCULAR HEMOGLOBIN 28.5 pg (25-34); MEAN CORPUSCULAR HGB CONC 33.9 g/dl (32-36); PLATELET COUNT 305 K/uL (130-400); RED BLOOD COUNT 4.03 M/uL (4.2-5.4); WHITE BLOOD COUNT 18.42 K/uL (4.8-10.8)
[2016-04-11] MEDS: ALBUT/IPRATROP 3MG/0.5MG NEB 3 ML VIAL INH SCH ×4 (07:59→19:48)
[2016-04-11] MEDS: BUDESONIDE 0.5 MG/2 ML VIAL (PULMICORT) INH SCH ×2 (07:59→19:48)
[2016-04-11] MEDS ORDERED: INSULIN GLARGINE SOLOSTAR 100 UNITS/ML 3 ML PEN SC SCH ×2 (08:00→21:00)
[2016-04-11 08:12] LABS: BUN/CREATININE RATIO 36.8 (10-20); CALCIUM 8.6 mg/dl (8.5-10.1); CREATININE 1.3 mg/dl (0.60-1.20); POTASSIUM 4.3 mmol/L (3.5-5.1)
[2016-04-11] MEDS: OXYBUTYNIN CHLORIDE 5 MG TAB PO SCH ×2 (08:23→20:58)
[2016-04-11] MEDS: ROSUVASTATIN CALCIUM 20 MG TAB PO SCH (08:24)
[2016-04-11] MEDS: CARVEDILOL 3.125 MG TAB PO SCH ×2 (08:24→16:02)
[2016-04-11] MEDS: AMIODARONE 200 MG TAB PO SCH (08:24)
[2016-04-11] MEDS: PAROXETINE 20 MG TAB PO SCH (08:25)
[2016-04-11] MEDS: CLOPIDOGREL BISULFATE 75 MG TAB PO SCH (08:25)
[2016-04-11] MEDS: ASPIRIN 81 MG ECTAB PO SCH (08:25)
[2016-04-11] MEDS: VENLAFAXINE HCL XR 150 MG CAPXR PO SCH (08:25)
[2016-04-11] MEDS: CEROVITE ADV FORMULA TAB PO SCH (08:25)
[2016-04-11] MEDS: VENLAFAXINE HCL XR 75 MG CAPXR PO SCH (08:25)
[2016-04-11] MEDS: TIOTROPIUM BROMIDE 5 PUFF/90 MCG INH INH SCH (08:26)
[2016-04-11] MEDS: ENOXAPARIN 40 MG/0.4 ML SYR SQ SCH (08:26)
[2016-04-11] MEDS: PREGABALIN 150 MG CAP PO SCH ×2 (08:34→21:00)
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
[2016-04-11] MEDS: CEFTRIAXONE SOD INJ 1 GM in DEXTROSE 5% ADD-VANTAGE 50ML 50 ML IV SCH (12:55)
--- NOTE | 2016-04-11 14:47 | Pharmacy Progress Note ---
Glycemic Control: Progress Nt Date of Service Apr 11, 2016. Scope Glycemic Pharmacist consulted by Dr Butler on 04/08/16 for glycemic control and to write orders per [facility] inpatient glycemic control protocol. Objective Accuchecks BSG (last 24hrs): Test 04/10/16 16:37 04/10/16 20:07 04/11/16 02:09 04/11/16 06:37 Bedside Glucose 127 mg/dl (70-90) 107 mg/dl (70-90) 95 mg/dl (70-90) Random Glucose 110 mg/dl (70-99) Test 04/11/16 08:15 Bedside Glucose 118 mg/dl (70-90) Laboratory Data (last 24hrs) Test 04/11/16 06:37 Anion Gap 10.0 mmol/L BUN/Creatinine Ratio 36.8 Blood Urea Nitrogen 48 mg/dl Creatinine 1.30 mg/dl Potassium Level 4.3 mmol/L Sodium Level 143 mmol/L White Blood Count 18.42 K/uL HbA1c: Test 04/08/16 06:29 Hemoglobin A1c 15.3 %(4.5-5.6) H Recent Pertinent Medications Outpatient Anti-diabetic Regimen: * NovoLog 26 units SQ with meals * Tresiba 60 units SQ at bedtime The patient is currently receiving: * Basal insulin: Lantus 45 units every 12 hours * Correctional Insulin: Novolog Correction per scale ACHS Goal Range: Low 140 mg/dL - High 180 mg/dL Correction Factor: 5 mg/dL/unit * Prandial insulin: Per carb ratio of 1 unit per 3 grams CHO consumed Risk Factors for Insulin Resistance: * Infection: bacteremia 2/2 to UTI - currently receiving IV ceftriaxone * IVF: NSS * Diet: T2DM/AHA/Low Na Assessment & Plan ASSESSMENT: * ADA & AACE recommend a goal blood sugar range 140-180 mg/dl for the majority of critically ill & non-critically ill patients. However, more stringent targets may be selected in individual cases. 04/09/16 * 65 yo type 2 diabetic, uncontrolled with significant insulin resistance. * She received 96 units of insulin on 04/07 after admission, and 188 units on . * BSG's ranged 202-368 over past 24 hours. Trending down but still high. * Will increase basal, continue tighter correction factor, and add 0200 BSG check. * Keep goal range 140-180, since uncontrolled diabetic patient may experience hypoglycemic symptoms at higher than usual blood sugar. * Will reassess in am. 04/11/16 * BSGs improved with increase insulin doses, however overnight BSG down to 95 mg /dL * though this is euglycemia, with such an elevated A1c, this may feel hypoglycemic to Ms Marsh. - back off insulin regimen slightly to avoid aversion to the medication * As an outpatient, her basal insulin is dosed once daily in the evening * start to transition her back to once daily basal dosing by giving a smaller dose this morning. May notice elevated BSGs this afternoon secondary to this, but will have larger dose of Lantus tonight. * NovoLog parameters appear to overcorrect Claudia's BSGs * slightly loosen correction factor and carb ratio to avoid BSGs below goal range. PLAN FOR INPATIENT GLYCEMIC CONTROL: * Lantus 15 units SQ this AM * Lantus 45 units SQ tonight * Re-assess Lantus needs on 04/12 (hopeful for once daily dosing in PM similar to home regimen) * NovoLog SC AC and HS * Correction factor: 6mg/dL/unit * Carb ratio: 1 unit per 4g of CHO consumed * Goal range: 140-180mg/dL as per recommended by the ADA and to help avoid the feeling of hypoglycemia RECOMMENDATIONS FOR DISCHARGE: * pending * Please note that the plan above was derived based on current level of insulin resistance and hospital stress. These recommendations are appropriate for inpatient admission only. Plan of care upon discharge will need to be reassessed to avoid potential outpatient hypo/hyperglycemia. Thank you.
[2016-04-11] MEDS: MIRTAZAPINE TAB 15 MG TAB PO SCH (20:58)
[2016-04-11] MEDS: PRAMIPEXOLE DIHYDROCHLORIDE 0.25MG TAB PO SCH (20:58)
[2016-04-11] MEDS: FAMOTIDINE 20 MG TAB PO SCH (20:58)
[2016-04-12] MEDS: SODIUM CHLORIDE 0.9% 1000ML 1,000 ML IV SCH ×2 (00:28→08:19)
[2016-04-12] MEDS: LEVOTHYROXINE 137 MCG TAB PO SCH (05:51)
[2016-04-12 06:32] LABS: MEAN CELL VOLUME 87.2 fL (80-100); MEAN CORPUSCULAR HEMOGLOBIN 29.2 pg (25-34); MEAN CORPUSCULAR HGB CONC 33.5 g/dl (32-36); MEAN PLATELET VOLUME 11.7 fL (7.4-10.4); PLATELET COUNT 356 K/uL (130-400); WHITE BLOOD COUNT 17.66 K/uL (4.8-10.8)
[2016-04-12 06:59] LABS: CALCIUM 8.2 mg/dl (8.5-10.1); CREATININE 1.3 mg/dl (0.60-1.20); POTASSIUM 4.8 mmol/L (3.5-5.1)
[2016-04-12 07:38] VITALS: PULSE 72; O2SAT 96
[2016-04-12] MEDS: BUDESONIDE 0.5 MG/2 ML VIAL (PULMICORT) INH SCH (07:38)
[2016-04-12] MEDS: ALBUT/IPRATROP 3MG/0.5MG NEB 3 ML VIAL INH SCH ×2 (07:38→11:28)
[2016-04-12 07:41] VITALS: BP 160/71; PULSE 70; TEMP 37; O2SAT 96
[2016-04-12] MEDS: PAROXETINE 20 MG TAB PO SCH (08:06)
[2016-04-12] MEDS: CLOPIDOGREL BISULFATE 75 MG TAB PO SCH (08:06)
[2016-04-12] MEDS: OXYBUTYNIN CHLORIDE 5 MG TAB PO SCH ×2 (08:06→22:51)
[2016-04-12] MEDS: CEROVITE ADV FORMULA TAB PO SCH (08:06)
[2016-04-12] MEDS: AMIODARONE 200 MG TAB PO SCH (08:06)
[2016-04-12] MEDS: TIOTROPIUM BROMIDE 5 PUFF/90 MCG INH INH SCH (08:06)
[2016-04-12] MEDS: VENLAFAXINE HCL XR 150 MG CAPXR PO SCH (08:06)
[2016-04-12] MEDS: VENLAFAXINE HCL XR 75 MG CAPXR PO SCH (08:06)
[2016-04-12] MEDS: ASPIRIN 81 MG ECTAB PO SCH (08:06)
[2016-04-12] MEDS: MAGNESIUM HYDROXIDE SUSP 30 ML UDC PO PRN ×2 (08:06→15:30)
[2016-04-12] MEDS: ROSUVASTATIN CALCIUM 20 MG TAB PO SCH (08:06)
[2016-04-12] MEDS: ENOXAPARIN 40 MG/0.4 ML SYR SQ SCH (08:07)
[2016-04-12] MEDS: PREGABALIN 150 MG CAP PO SCH ×2 (08:17→21:00)
[2016-04-12] MEDS: CARVEDILOL 3.125 MG TAB PO SCH ×2 (08:18→17:08)
[2016-04-12] MEDS: INSULIN ASPART 100 UNITS/ML 3 ML PEN SC SCH ×4 (09:20→21:00)
[2016-04-12 11:28] VITALS: PULSE 80; O2SAT 95
[2016-04-12] MEDS: CEFTRIAXONE SOD INJ 1 GM in DEXTROSE 5% ADD-VANTAGE 50ML 50 ML IV SCH (12:13)
[2016-04-12] MEDS: TRAMADOL HCL 50 MG TAB PO PRN ×2 (12:13→22:59)
--- NOTE | 2016-04-12 12:33 | Pharmacy Progress Note ---
Glycemic: Assessment & Plan Date of Service Apr 12, 2016. Assessment & Plan Recent Pertinent Medications Outpatient Anti-diabetic Regimen: * NovoLog 26 units SQ with meals * Tresiba 60 units SQ at bedtime The patient is currently receiving: * Basal insulin: Lantus 45 units every 12 hours * Correctional Insulin: NovoLog Correction per scale AC/HS Goal Range: Low 140 mg/dL - High 180 mg/dL Correction Factor: 6 mg/dL/unit * Prandial insulin: Per carb ratio of 1 unit per 4 grams CHO consumed Risk Factors for Insulin Resistance: * Infection: bacteremia 2/2 to UTI - currently receiving IV ceftriaxone * IVF: NSS * Diet: T2DM/AHA/Low Na Assessment & Plan ASSESSMENT: * ADA & AACE recommend a goal blood sugar range 140-180 mg/dl for the majority of critically ill & non-critically ill patients. However, more stringent targets may be selected in individual cases. 04/09/16 * 65 yo type 2 diabetic, uncontrolled with significant insulin resistance. * She received 96 units of insulin on 04/07 after admission, and 188 units on . * BSG's ranged 202-368 over past 24 hours. Trending down but still high. * Will increase basal, continue tighter correction factor, and add 0200 BSG check. * Keep goal range 140-180, since uncontrolled diabetic patient may experience hypoglycemic symptoms at higher than usual blood sugar. * Will reassess in am. 04/11/16 * BSGs improved with increase insulin doses, however overnight BSG down to 95 mg /dL * though this is euglycemia, with such an elevated A1c, this may feel hypoglycemic to Ms Marsh. - back off insulin regimen slightly to avoid aversion to the medication * As an outpatient, her basal insulin is dosed once daily in the evening * start to transition her back to once daily basal dosing by giving a smaller dose this morning. May notice elevated BSGs this afternoon secondary to this, but will have larger dose of Lantus tonight. * NovoLog parameters appear to overcorrect Claudia's BSGs * slightly loosen correction factor and carb ratio to avoid BSGs below goal range. 04/12/16 * Titrating basal insulin back to once daily at night - * no Lantus this AM * Increase PM Lantus accordingly * Claudia received 100 units of insulin on 04/11 with BSGs ranging from 92-192mg/dL * continue with current NovoLog parameters * base basal dose off of 100 units per day (50 units of Lantus) PLAN FOR INPATIENT GLYCEMIC CONTROL: * Lantus 50 units SQ q PM * NovoLog SC AC and HS * Correction factor: 6 mg/dL/unit * Carb ratio: 1 unit per 4g of CHO consumed * Goal range: 140-180mg/dL as per recommended by the ADA and to help avoid the feeling of hypoglycemia RECOMMENDATIONS FOR DISCHARGE: * Continue home regimen on discharge and enforce the need for compliance * Please note that the plan above was derived based on current level of insulin resistance and hospital stress. These recommendations are appropriate for inpatient admission only. Plan of care upon discharge will need to be reassessed to avoid potential outpatient hypo/hyperglycemia. Thank you.
--- NOTE | 2016-04-12 13:25 | Medical Consult ---
Consultation Date of Consultation: Apr 12, 2016. Attending Physician: Bailey Dempsey MD Reason for Consultation: Bacteremia, UTI History of Present Illness Patient is a 65 yo diabetic female previously known to the ID service for left lower extremity infection who presented to the ED with concerns of generalized weakness and hyperglycemia. She states that prior to admission, she overall felt "crappy". She does have chronic sputum production and cough due to history of smoking. She states that she did not have any congestion. She had also noted some sweats but these are also chronic. She denies chills. She states that she previously had a large infection of the posterior left leg which has since healed. On admission, her WBC count was 17.70. Since then, her WBC count has continued to be elevated from 17-18. She was noted to have a glucose of 519 on admission along with Creatinine up to 1.70. Urine and blood cultures on admission are growing pansensitive E. Coli. She was initially on IV Zosyn and transitioned to IV Ceftriaxone 2 days ago. MRSA swab was negative. She has not moved her bowels since admission. She denies nausea, vomiting, diarrhea, increased SOB from baseline, chest pain, headache, or calf pain. She states that she does also have urinary frequency chronically following her hysterectomy many years ago. She otherwise denies urinary symptoms. 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 Chest X-Ray showed no acute disease. Past Medical/Surgical History Medical Problems: (1) ACS (acute coronary syndrome) Status: Acute (2) Acute kidney injury Status: Acute (3) CHF (congestive heart failure) Status: Acute (4) COPD (chronic obstructive pulmonary disease) Status: Acute (5) COPD exacerbation Status: Acute (6) Hypoxia Status: Acute (7) Influenza Status: Acute (8) Pneumonia Status: Acute (9) Troponin level elevated Status: Acute (10) Vomiting Status: Acute Medical Problems: (1) BLANCA (acute kidney injury) (2) Asthma (3) Benign hypertension (4) Dehydration (5) Diabetes mellitus (6) GERD (gastroesophageal reflux disease) (7) Hyperglycemia (8) Hyperlipidemia (9) Hypomagnesemia (10) Influenza A with pneumonia (11) Pneumonia (12) Pneumonia involving right lung (13) UTI (urinary tract infection) Family History No pertinent family history Noncontributory Social History Smoking Status: Never Smoker Smokeless Tobacco Use: No Alcohol Use: previously heavy drinker, quit 1988 Drug Use: none Marital Status: single Housing Status: half-way Occupation Status: unemployed Allergies Coded Allergies: Clindamycin (Verified Allergy, Severe, RASH, DELUSIONAL, CONVULSIONS, 04/17) Eggs or Egg-derived Products (Verified Allergy, Severe, ANAPHYLAXIS, ) NO FLU VAC. Note: 04/05/12, pt ate eggs for breakfast, dietary requested that pharmacy add egg food allergy. aj Furosemide (Verified Allergy, Severe, ANAPHYLAXIS, 04/17/15) Sulfamethoxazole w/Trimethoprim (Verified Allergy, Intermediate, RASH, ) Amoxicillin (Verified Allergy, Unknown, ., 04/17/15) Atorvastatin (Verified Allergy, Unknown, acute renal failure, 04/17/15) Clavulanic Acid (Verified Allergy, Unknown, ., 04/17/15) Egg (Verified Allergy, Unknown, _, 04/17/15) 04/05/12: ADDED PER DIETARY REQUEST. Latex1 -Allergic Contact Dermititis (Verified Allergy, Unknown, RASH, 04/17) Penicillins (Verified Allergy, Unknown, unknown, 04/17/15) Triamcinolone (Verified Allergy, Unknown, RASH, 04/17/15) Diclofenac (Verified Adverse Reaction, Severe, SKIN SLOTHED FROM HEEL, ) Isopropyl Alcohol (Verified Adverse Reaction, Severe, SKIN SLOTHED FROM HEEL, 04/17/15) Propylene Glycol (Verified Adverse Reaction, Severe, SKIN SLOTHED FROM HEEL, 04/17/15) Acetaminophen (Verified Adverse Reaction, Mild, VOMITING, 04/17/15) Home Medications Reported Home Medications Medications Dose Route/Sig Max Daily Dose Days Date Category Dose Instructions Multi For Her 50+ (Multiple Vitamins W/ Minerals) 1 Cap Cap 1 Cap PO DAILY 04/07/[address] (Aspirin) 81 Mg Tab 81 Mg PO DAILY 04/07/16 Reported Vitamin D 90722 Unit (Ergocalciferol) 50,000 Unit Cap 50,000 Inter.unit PO WK 04/07/16 Reported [Proair HFA] 2 Puffs INH Q4-6HRS PRN 04/07/16 Reported Aldactone (Spironolactone) 25 Mg Tab 25 Mg PO BID 1/11/17 Reported Clopidogrel (Clopidogrel Bisulfate) 75 Mg Tab 75 Mg PO DAILY 04/07/16 Reported Lisinopril 2.5 Mg Tab 2.5 Mg PO DAILY 04/07/16 Reported Amiodarone HCl 200 Mg Tab 200 Mg PO DAILY 04/07/16 Reported Effexor Extended Rel (Venlafaxine Hcl) 150 Mg Capcr 150 Mg PO QAM 04/07/16 Reported Effexor Extended Rel (Venlafaxine Hcl) 75 Mg Capcr 75 Mg PO QAM 04/07/16 Reported Paroxetine HCl (Paroxetine) 20 Mg Tab 20 Mg PO DAILY 04/07/16 Reported Pepcid (Famotidine) 20 Mg Tab 20 Mg PO QPM 04/07/16 Reported Rosuvastatin Calcium 20 Mg Tab 20 Mg PO DAILY 04/07/16 Reported Coreg (Carvedilol) 3.125 Mg Tab 3.125 Mg PO BIDM 04/07/16 Reported Levothyroxine Sodium 137 Mcg Tab 137 Mcg PO DAILY 04/07/16 Reported Tresiba Flextouch (Insulin Degludec) 200 Unit/Ml Inj 60 Units SC HS 04/07/16 Reported Novolog Flexpen (Insulin Aspart) 100 Units/Ml Inj 26 Units SQ WM 06/01/15 Reported 26 UNITS WITH MEALS PLUS SLIDING SCALE Ultram (Tramadol HCl) 50 Mg Tab 50 Mg PO Q8 PRN 06/01/15 Reported Albuterol Sulfate (Albuterol Sulf) 2.5 Mg/3 Ml Nebu 1 Vial NEB Q4-6HRS PRN 03/25/15 Reported Pramipexole Dihydrochlori (Pramipexole Dihydrochloride) 0.75 Mg Tab 0.75 Mg PO QPM 03/01/15 Reported Remeron (Mirtazapine) 30 Mg Tab 30 Mg PO HS 03/01/15 Reported Ditropan (Oxybutynin Chloride) 5 Mg Tab 5 Mg PO BID 08/22/13 Reported Lyrica (Pregabalin) 150 Mg Cap 300 Mg PO HS 03/09/13 Reported Lyrica (Pregabalin) 150 Mg Cap 150 Mg PO QAM 03/09/13 Reported Current Inpatient Medications Current Inpatient Medications Medications (Trade) Dose Ordered Sig/Frieda Route Start Time Stop Time Status Last Admin Dose Admin Magnesium Hydroxide (Milk Of Magnesia Susp) 30 ml Q6H PRN PO 04/07/16 19:15 05/07/16 19:14 04/12/16 08:06 30 ML Polyethylene (Miralax Powder Packet) 17 gm DAILY PRN PO 04/07/16 19:30 05/07/16 19:29 04/12/16 08:06 17 GM Ondansetron HCl (Zofran Inj) 4 mg Q6H PRN IV 04/07/16 19:15 05/07/16 19:14 Insulin Aspart (novoLOG ASPART) SLIDING SCALE G... ACHS SC 04/07/16 21:00 05/07/16 20:59 04/12/16 12:17 21 UNITS Amiodarone HCl (Cordarone Tab) 200 mg DAILY PO 04/08/16 08:00 05/08/16 08:59 04/12/16 08:06 200 MG Aspirin (Ecotrin Tab) 81 mg DAILY PO 04/08/16 08:00 05/08/16 08:59 04/12/16 08:06 81 MG Carvedilol (Coreg Tab) 3.125 mg BIDM PO 04/08/16 08:00 05/08/16 07:59 04/12/16 08:18 3.125 MG Clopidogrel Bisulfate (plAVix TAB) 75 mg DAILY PO 04/08/16 08:00 05/08/16 08:59 04/12/16 08:06 75 MG Levothyroxine Sodium (Synthroid Tab) 137 mcg DAILYBB PO 04/08/16 06:30 05/08/16 06:59 04/12/16 05:51 137 MCG Oxybutynin Chloride (Ditropan Tab) 5 mg BID PO 04/07/16 21:00 05/07/16 20:59 04/12/16 08:06 5 MG Pregabalin (Lyrica Cap) 150 mg QAM PO 04/08/16 08:00 05/08/16 08:59 04/12/16 08:17 150 MG Pregabalin (Lyrica Cap) 300 mg HS PO 04/07/16 21:00 05/07/16 20:59 04/11/16 21:00 300 MG Rosuvastatin Calcium (Crestor Tab) 20 mg DAILY PO 04/08/16 08:00 05/08/16 08:59 04/12/16 08:06 20 MG Tramadol HCl (Ultram Tab) 50 mg Q8 PRN PO 04/07/16 19:30 05/07/16 19:29 04/12/16 12:13 50 MG Tiotropium [place] (Spiriva Handihaler Inhaler) 1 puff QAM INH 04/08/16 08:00 05/08/16 08:59 04/12/16 08:06 1 PUFF Budesonide (Pulmicort Respules 0.5MG/ 2ML Neb Soln) 0.5 mg BIDR INH 04/07/16 20:00 05/07/16 19:59 04/12/16 07:38 0.5 MG Glucose (Glucose 40% Gel) 15-30 GRAMS 15 GRAMS... UD PRN PO 04/07/16 19:45 05/07/16 19:44 Glucose (Glucose Chew Tab) 4-8 Tablets 4 Tabl... UD PRN PO 04/07/16 19:45 05/07/16 19:44 Dextrose (Dextrose 50% 50ML Syringe) 25-50ML OF 50% DW IV FOR... UD PRN IV 04/07/16 19:45 05/07/16 19:44 Glucagon (Glucagon Inj) 1 mg UD PRN SQ 04/07/16 19:45 05/07/16 19:44 Mirtazapine (Remeron Tab) 30 mg HS PO 04/07/16 21:00 05/07/16 20:59 04/11/16 20:58 30 MG Paroxetine HCl (pAXil TAB) 20 mg DAILY PO 04/08/16 08:00 05/08/16 08:59 04/12/16 08:06 20 MG Venlafaxine HCl (effeXOR EXTENDED REL CAP) 75 mg QAM PO 04/08/16 08:00 05/08/16 08:59 04/12/16 08:06 75 MG Venlafaxine HCl (effeXOR EXTENDED REL CAP) 150 mg QAM PO 04/08/16 08:00 05/08/16 08:59 04/12/16 08:06 150 MG Multivitamins/ Minerals (Multivitamin W/ Minerals Tab) 1 tab QAM PO 04/08/16 08:00 05/08/16 08:59 04/12/16 08:06 1 TAB Pramipexole Dihydrochloride (miraPEX TAB) 0.75 mg HS PO 04/07/16 21:00 05/07/16 20:59 04/11/16 20:58 0.75 MG Famotidine 20 mg 20 mg QPM PO 04/07/16 21:00 05/07/16 20:59 04/11/16 20:58 20 MG Sodium Chloride (Nss 1000ml) 1,000 ml @ 100 mls/hr Q10H IV 04/07/16 21:00 05/08/16 20:59 04/12/16 08:19 100 MLS/HR Miscellaneous Information (Consult Glycemic Management Pharmacy) 1 ea UD PRN N/A 04/08/16 16:49 05/08/16 16:48 Enoxaparin Sodium 40 mg 40 mg QAM SQ 04/11/16 08:00 05/11/16 07:59 04/12/16 08:07 40 MG Ceftriaxone Sodium/Dextrose (Rocephin Inj/ Dextrose Add-Calcium 50ML) 50 ml @ 100 mls/hr Q24H IV 04/11/16 12:00 04/25/16 11:59 04/12/16 12:13 100 MLS/HR Albuterol/ Ipratropium (Combivent Respimat Inh) 1 puffs QID INH 04/12/16 15:00 05/12/16 14:59 Insulin Glargine (Lantus Solostar Pen) 50 unit PM SC 04/12/16 21:00 05/12/16 20:59 Review of Systems Constitutional: + 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), + sweats (chronic), + 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) Eyes: No worsening of vision ENT: No hearing loss Respiratory: + cough (chronic ), + sputum (some on and off chronic), No shortness of breath Cardiovascular: No chest pain Abdomen: + constipation (has not moved bowels since admission), No nausea, No pain, No vomiting Musculoskeletal: + problem reported (right sided lower back pain ), No joint pain, No muscle pain Genitourinary - Female: + problem reported (blood in her urine about 1 week ago ), + urinary frequency (chronic), No dysuria Integumentary: No itch, No new/changing skin lesions, No rash Physical Exam Date Time Temp Pulse Resp B/P Pulse Ox O2 Delivery O2 Flow Rate FiO2 04/12/16 11:28 80 16 95 Room Air 04/12/16 08:40 Room Air 04/12/16 07:41 37.0 70 16 160/71 96 Room Air 04/12/16 07:38 72 16 96 Room Air 04/12/16 00:00 Room Air 04/11/16 23:37 36.7 65 18 117/57 95 Room Air 04/11/16 20:00 Room Air 04/11/16 19:48 74 18 98 Room Air 04/11/16 16:50 Room Air 04/11/16 15:37 77 18 98 Room Air 04/11/16 15:35 36.9 80 19 122/64 98 Room Air General Appearance: no apparent distress, + obese Head: normocephalic, atraumatic Eyes: normal inspection, sclerae normal ENT: hearing grossly normal Neck: supple, trachea midline Respiratory/Chest: chest non-tender, lungs clear, normal breath sounds, no respiratory distress, no accessory muscle use Cardiovascular: regular rate, rhythm, no murmur Abdomen/GI: non tender, soft, + abnormal bowel sounds (hypoactive) Back: normal inspection Neurologic/Psych: alert, normal mood/affect Skin: normal color, warm/dry, no rash, + pertinent finding (scars of the left lower posterior leg from previous surgery) Laboratory Results SINGLE VIEW CHEST CLINICAL HISTORY: Hyperglycemia. FINDINGS: An AP, portable, upright chest radiograph is compared to study dated 06/01/2015. The examination is degraded by portable technique, large body habitus, and patient rotation. The patient is status post midline sternotomy. The heart is normal for projection and there is atherosclerotic calcification of the thoracic aorta. The pulmonary vasculature is noncongested. There is chronic elevation of the left hemidiaphragm with left basilar atelectasis. Chronic interstitial thickening is unchanged. There is no evidence of airspace consolidation or pleural effusion. No pneumothorax is seen. The skeletal structures are osteopenic. The bony thorax is grossly intact. Surgical anchors are present in the right humeral head. IMPRESSION: No acute cardiopulmonary abnormality. RUN DATE: 04/10/16 [facility] PAGE 1 RUN TIME: 815 Specimen Inquiry PATIENT: HENRIETTA WATSON LOC: [facility] U # : [id number] AGE/SX: 65/F ROOM: [facility] REG : 04/07/[address]: Marika Bahena M.D. : 1950 BED: 1 DIS : STATUS: ADM IN TLOC: SPEC #: [id number] JENARO: 04/07/16 STATUS: COMP REQ #: [id number] RECD: 04/07/[address]: Sabino Rowley MD SOURCE: BLOOD ENTR: 04/07/[address] [facility] [address]: Boubacar Alfonso D.OBritt SPDESC: Ken Verma MD Balabanova- Tsarnakova, RV., MD ORDERED: BLOOD CULTURE Procedure Result Verified Site BLD CULT Final 04/10/16-0816 Organism 1 ESCHERICHIA COLI SENS SENSITIVITY TO FOLLOW Phoned Positive Blood Culture Gram Stain Report to 4E;MARTIR BELLAMY on 04/08/16 At 0939 By PER. Results were verbalized back to PER. 1. ESCHERICHIA COLI Target Route Dose RX AB Cost M.I.C. IQ ------ ----- ------ -- ------ -------- - ------ TRIMET/SULFA S <=2/38 AMPICILLIN S <=8 AMPICILLIN/SUL S <=8/4 CEFAZOLIN S <=8 CEFOTAXIME S <=2 CEFTRIAXONE S <=1 CEFEPIME S <=4 CEFUROXIME S <=4 IMIPENEM S <=1 GENTAMICIN S <=4 TOBRAMYCIN S <=4 AMIKACIN S <=16 CIPROFLOXACIN S <=1 LEVOFLOXACIN S <=2 ERTAPENEM S <=1 PIP/TAZO S <=16 S = SENSITIVE I = INTERMEDIATE R = RESISTANT Item Value Date Time MRSA DNA Surveillance Screen - Final Complete 04/07/16 2300 Nasal Specimen Negative for MRSA by DNA Probe Blood Culture - Final Complete 04/07/16 1929 Blood Escherichia Coli Blood Culture - Final Complete 04/07/16 1921 Blood Escherichia Coli Urine Culture - Final Complete 04/07/16 1800 Urine , Clean Catch Escherichia Coli Last 24 Hours Test 04/11/16 16:56 04/11/16 20:20 04/12/16 05:57 04/12/16 05:59 Bedside Glucose 147 mg/dl 92 mg/dl Sodium Level 142 mmol/L Potassium Level 4.8 mmol/L Chloride Level 109 mmol/L Carbon Dioxide Level 23 mmol/L Anion Gap 10.0 mmol/L Blood Urea Nitrogen 36 mg/dl Creatinine 1.30 mg/dl Est Creatinine Clear Calc Drug Dose 53.7 ml/min Estimated GFR () 50.6 Estimated GFR (Non- 43.6 BUN/Creatinine Ratio 28.0 Random Glucose 164 mg/dl Calcium Level 8.2 mg/dl White Blood Count 17.66 K/uL Red Blood Count 3.90 M/uL Hemoglobin 11.4 g/dL Hematocrit 34.0 % Mean Corpuscular Volume 87.2 fL Mean Corpuscular Hemoglobin 29.2 pg Mean Corpuscular Hemoglobin Concent 33.5 g/dl RDW Standard Deviation 45.8 fL RDW Coefficient of Variation 14.5 % Platelet Count 356 K/uL Mean Platelet Volume 11.7 fL Test 04/12/16 07:41 04/12/16 11:40 Bedside Glucose 150 mg/dl 222 mg/dl Assessment & Plan Patient is a diabetic female with hyperglycemia on admission along with E. Coli bacteremia, E. Coli UTI, and BLANCA. She was previously on IV Zosyn and changed to IV Ceftriaxone. She has received 6 days total thus far, and her WBC count continues to be elevated at 17-18. 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 Will consider KUB or CT of the abdomen to assess possible kidney stones. Recommend continuing IV abx for now. Pending further improvement, may be able to transition to PO abx to complete 2 weeks. We will continue to follow. PROVIDER ADDENDUM: Patient examined and reviewed with Ms. Burns. Agree with above assessment. Recommend CT of the abdomen.
--- NOTE | 2016-04-12 15:08 | DIAGNOSTIC IMAGING REPORT ---
CHEST 2 VIEWS ROUTINE CLINICAL HISTORY: cough, crackles COMPARISON STUDY: 04/07/2016 FINDINGS: There are postsurgical changes of midline sternotomy. The heart is borderline enlarged. There is minor elevation left hemidiaphragm. There is no focal pulmonary consolidation. There is no overt failure. There are no pleural effusions. There is minor chronic interstitial thickening.[ IMPRESSION: No active disease in the chest. Electronically signed by: Enrique Kumar M.D. 04/12/2016 3:06 PM Dictated Date/Time: 04/12/2016 3:06 PM
--- NOTE | 2016-04-12 15:19 | DIAGNOSTIC IMAGING REPORT ---
CT SCAN OF THE ABDOMEN AND PELVIS WITHOUT IV CONTRAST CLINICAL HISTORY: Right flank pain. COMPARISON STUDY: Abdominal CT dated 05/17/12. TECHNIQUE: CT scan of the abdomen and pelvis is performed from the lung bases to the proximal femora. Images are reviewed in the axial, sagittal, and coronal planes. IV contrast was not administered for this examination as per the referring clinician. Automated dose control exposure was utilized. CT DOSE: 1793.24 mGy.cm FINDINGS: Lung bases: Midline sternotomy wires are noted. The heart is enlarged and without pericardial effusion. The coronary arteries are calcified. There is elevation of the left hemidiaphragm. There are small pleural effusions and bibasilar atelectasis. Liver: The unenhanced liver is enlarged, measuring 22 cm in length. The liver demonstrates diffusely diminished attenuation consistent with hepatic steatosis. More focal fat is seen adjacent to the falciform ligament. There is no intrahepatic biliary ductal dilatation. Gallbladder: Unremarkable. Spleen: Normal in size and attenuation. Pancreas: The unenhanced pancreas is moderately atrophic and grossly unremarkable. Adrenal glands: A 3.2 cm fat-containing lesion is again seen arising from the right adrenal gland. 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 Kidneys: The unenhanced kidneys demonstrate cortical atrophy and are without hydronephrosis. There are no renal calculi identified. There is no evidence of contour deforming renal mass lesion. There is mild right-sided perinephric stranding. Abdominal vasculature: The abdominal aorta is normal in course and caliber noting advanced atherosclerotic calcification. Bowel: The small bowel and colon are normal in course and caliber. There is mild colonic diverticulosis without CT evidence of acute diverticulitis. Moderate to severe constipation is observed. The appendix is not visualized. Peritoneum: There is no intraperitoneal free air or abdominal ascites. There is a fat-containing umbilical hernia. Lymphadenopathy: None. Pelvic viscera: The bladder, uterus, and adnexa are normal as visualized. There is a fat-containing left inguinal hernia. Skeletal structures: The skeletal structures are osteopenic. Moderate lumbosacral spondylosis is observed. No lytic or blastic lesions are seen. Soft tissues: There is mild body wall edema. Foci of subcutaneous gas within the right lower quadrant abdominal pannus are likely related to subcutaneous injections. IMPRESSION: 1. Moderate to severe constipation. 2. The kidneys demonstrate cortical atrophy and are without hydronephrosis. No renal calculi are identified. 3. There is mild and nonspecific right-sided perinephric stranding. This could be related to urinary tract infection/pyelonephritis or could represent the sequelae of a recently passed kidney stone. Correlation with clinical findings and urinalysis will be required. 4. Cardiomegaly. 5. Trace pleural effusions. 6. Additional changes as above. Electronically signed by: Andrew Navarro M.D. 04/12/2016 3:17 PM Dictated Date/Time: 04/12/2016 3:06 PM
[2016-04-12] MEDS: IPRATROPIUM BROMIDE/ALBUTEROL respimat INH INH SCH ×2 (15:30→22:45)
[2016-04-12 15:39] VITALS: BP 133/85; PULSE 68; TEMP 37; O2SAT 95
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
[2016-04-12] MEDS: SENNA 8.6 MG TAB PO SCH (20:00)
[2016-04-12] MEDS ORDERED: INSULIN GLARGINE SOLOSTAR 100 UNITS/ML 3 ML PEN SC SCH (21:00)
[2016-04-12] MEDS: PRAMIPEXOLE DIHYDROCHLORIDE 0.25MG TAB PO SCH (22:52)
[2016-04-12] MEDS: MIRTAZAPINE TAB 15 MG TAB PO SCH (22:53)
[2016-04-12] MEDS: FAMOTIDINE 20 MG TAB PO SCH (22:53)
[2016-04-12 23:47] VITALS: BP 119/72; PULSE 72; TEMP 36.9; O2SAT 98
[2016-04-13] VITALS: O2SAT 98
[2016-04-13] MEDS: LEVOTHYROXINE 137 MCG TAB PO SCH (06:09)
[2016-04-13] MEDS: TRAMADOL HCL 50 MG TAB PO PRN ×2 (06:10→16:58)
[2016-04-13 06:26] LABS: HEMATOCRIT 31.7 % (37-47); MEAN CELL VOLUME 87.3 fL (80-100); MEAN CORPUSCULAR HEMOGLOBIN 29.2 pg (25-34); MEAN CORPUSCULAR HGB CONC 33.4 g/dl (32-36); MEAN PLATELET VOLUME 11.3 fL (7.4-10.4); PLATELET COUNT 394 K/uL (130-400); RED BLOOD COUNT 3.63 M/uL (4.2-5.4); WHITE BLOOD COUNT 16.11 K/uL (4.8-10.8)
[2016-04-13 06:58] LABS: BUN/CREATININE RATIO 24.7 (10-20); CALCIUM 8.5 mg/dl (8.5-10.1); CREATININE 1.2 mg/dl (0.60-1.20); POTASSIUM 5.5 mmol/L (3.5-5.1)
[2016-04-13 07:40] VITALS: BP 111/70; PULSE 69; TEMP 36.7; O2SAT 97
[2016-04-13] MEDS ORDERED: POLYETHYLENE (MIRALAX) 17 GM PACK PO SCH (08:00)
[2016-04-13] MEDS: PREGABALIN 150 MG CAP PO SCH (08:25)
[2016-04-13] MEDS: CARVEDILOL 3.125 MG TAB PO SCH ×2 (08:25→16:58)
[2016-04-13] MEDS: ROSUVASTATIN CALCIUM 20 MG TAB PO SCH (08:25)
[2016-04-13] MEDS: MAGNESIUM HYDROXIDE SUSP 30 ML UDC PO PRN ×2 (08:25→16:57)
[2016-04-13] MEDS: PAROXETINE 20 MG TAB PO SCH (08:26)
[2016-04-13] MEDS: CEROVITE ADV FORMULA TAB PO SCH (08:26)
[2016-04-13] MEDS: ENOXAPARIN 40 MG/0.4 ML SYR SQ SCH (08:26)
[2016-04-13] MEDS: ASPIRIN 81 MG ECTAB PO SCH (08:26)
[2016-04-13] MEDS: VENLAFAXINE HCL XR 150 MG CAPXR PO SCH (08:26)
[2016-04-13] MEDS: OXYBUTYNIN CHLORIDE 5 MG TAB PO SCH (08:26)
[2016-04-13] MEDS: AMIODARONE 200 MG TAB PO SCH (08:26)
[2016-04-13] MEDS: CLOPIDOGREL BISULFATE 75 MG TAB PO SCH (08:26)
[2016-04-13] MEDS: IPRATROPIUM BROMIDE/ALBUTEROL respimat INH INH SCH ×3 (08:26→17:00)
[2016-04-13] MEDS: VENLAFAXINE HCL XR 75 MG CAPXR PO SCH (08:26)
[2016-04-13] MEDS: INSULIN ASPART 100 UNITS/ML 3 ML PEN SC SCH ×3 (08:34→17:28)
[2016-04-13] MEDS: TIOTROPIUM BROMIDE 5 PUFF/90 MCG INH INH SCH (08:58)
[2016-04-13] MEDS: SENNA 8.6 MG TAB PO SCH (08:58)
[2016-04-13] MEDS ORDERED: SODIUM POLYST. SULF SUSP 15G/60ML PO ONE (09:15)
--- NOTE | 2016-04-13 10:49 | Family Medicine Progress Note ---
Progress Note Date of Service Apr 13, 2016. Subjective Pt evaluation today including: conversation w/ patient, physical exam, chart review, lab review, review of studies, review of inpatient medication list Pain: chronic joint pain (hands) she attributes to arthirits PO Intake: adequate Voiding: no voiding problems NO acute events overnight. Pt reports +productive cough, denies CP, SOB, wheezing. has not passed stool since being in hospital but denies constipation, CT shows mod. to severe constipation Constitutional: No chills, No fever Respiratory: + cough (productive), + sputum, No shortness of breath, No wheezing Cardiovascular: No chest pain, No palpitations Abdomen: + constipation, No diarrhea, No nausea, No pain, No vomiting Musculoskeletal: No calf pain, No swelling Female : No dysuria, No urinary frequency Neurologic: + numbness/tingling (bilateral metatarsals) Medications Current Inpatient Medications Medications (Trade) Dose Ordered Sig/Frieda Route Start Time Stop Time Status Last Admin Dose Admin Magnesium Hydroxide (Milk Of Magnesia Susp) 30 ml Q6H PRN PO 04/07/16 19:15 05/07/16 19:14 04/13/16 08:25 30 ML Ondansetron HCl (Zofran Inj) 4 mg Q6H PRN IV 04/07/16 19:15 05/07/16 19:14 Insulin Aspart (novoLOG ASPART) SLIDING SCALE G... ACHS SC 04/07/16 21:00 05/07/16 20:59 04/13/16 08:34 20 UNITS Amiodarone HCl (Cordarone Tab) 200 mg DAILY PO 04/08/16 08:00 05/08/16 08:59 04/13/16 08:26 200 MG Aspirin (Ecotrin Tab) 81 mg DAILY PO 04/08/16 08:00 05/08/16 08:59 04/13/16 08:26 81 MG Carvedilol (Coreg Tab) 3.125 mg BIDM PO 04/08/16 08:00 05/08/16 07:59 04/13/16 08:25 3.125 MG Clopidogrel Bisulfate (plAVix TAB) 75 mg DAILY PO 04/08/16 08:00 05/08/16 08:59 04/13/16 08:26 75 MG Levothyroxine Sodium (Synthroid Tab) 137 mcg DAILYBB PO 04/08/16 06:30 05/08/16 06:59 04/13/16 06:09 137 MCG Oxybutynin Chloride (Ditropan Tab) 5 mg BID PO 04/07/16 21:00 05/07/16 20:59 04/13/16 08:26 5 MG Pregabalin (Lyrica Cap) 150 mg QAM PO 04/08/16 08:00 05/08/16 08:59 04/13/16 08:25 150 MG Pregabalin (Lyrica Cap) 300 mg HS PO 04/07/16 21:00 05/07/16 20:59 04/12/16 21:00 300 MG Rosuvastatin Calcium (Crestor Tab) 20 mg DAILY PO 04/08/16 08:00 05/08/16 08:59 04/13/16 08:25 20 MG Tramadol HCl (Ultram Tab) 50 mg Q8 PRN PO 04/07/16 19:30 05/07/16 19:29 04/13/16 06:10 50 MG Tiotropium [place] (Spiriva Handihaler Inhaler) 1 puff QAM INH 04/08/16 08:00 05/08/16 08:59 04/13/16 08:58 1 PUFF Budesonide (Pulmicort Respules 0.5MG/ 2ML Neb Soln) 0.5 mg BIDR INH 04/07/16 20:00 05/07/16 19:59 04/12/16 07:38 0.5 MG Glucose (Glucose 40% Gel) 15-30 GRAMS 15 GRAMS... UD PRN PO 04/07/16 19:45 05/07/16 19:44 Glucose (Glucose Chew Tab) 4-8 Tablets 4 Tabl... UD PRN PO 04/07/16 19:45 05/07/16 19:44 Dextrose (Dextrose 50% 50ML Syringe) 25-50ML OF 50% DW IV FOR... UD PRN IV 04/07/16 19:45 05/07/16 19:44 Glucagon (Glucagon Inj) 1 mg UD PRN SQ 04/07/16 19:45 05/07/16 19:44 Mirtazapine (Remeron Tab) 30 mg HS PO 04/07/16 21:00 05/07/16 20:59 04/12/16 22:53 30 MG Paroxetine HCl (pAXil TAB) 20 mg DAILY PO 04/08/16 08:00 05/08/16 08:59 04/13/16 08:26 20 MG Venlafaxine HCl (effeXOR EXTENDED REL CAP) 75 mg QAM PO 04/08/16 08:00 05/08/16 08:59 04/13/16 08:26 75 MG Venlafaxine HCl (effeXOR EXTENDED REL CAP) 150 mg QAM PO 04/08/16 08:00 05/08/16 08:59 04/13/16 08:26 150 MG Multivitamins/ Minerals (Multivitamin W/ Minerals Tab) 1 tab QAM PO 04/08/16 08:00 05/08/16 08:59 04/13/16 08:26 1 TAB Pramipexole Dihydrochloride (miraPEX TAB) 0.75 mg HS PO 04/07/16 21:00 05/07/16 20:59 04/12/16 22:52 0.75 MG Famotidine (Pepcid Tab) 20 mg QPM PO 04/07/16 21:00 05/07/16 20:59 04/12/16 22:53 20 MG Miscellaneous Information (Consult Glycemic Management Pharmacy) 1 ea UD PRN N/A 04/08/16 16:49 05/08/16 16:48 Enoxaparin Sodium 40 mg 40 mg QAM SQ 04/11/16 08:00 05/11/16 07:59 04/13/16 08:26 40 MG Ceftriaxone Sodium/Dextrose (Rocephin Inj/ Dextrose Add-[place] 50ML) 50 ml @ 100 mls/hr Q24H IV 04/11/16 12:00 04/25/16 11:59 04/12/16 12:13 100 MLS/HR Albuterol/ Ipratropium (Combivent Respimat Inh) 1 puffs QID INH 04/12/16 15:00 05/12/16 14:59 04/13/16 08:26 1 PUFFS Insulin Glargine (Lantus Solostar Pen) 50 unit PM SC 04/12/16 21:00 05/12/16 20:59 04/12/16 22:55 50 UNIT Polyethylene (Miralax Powder Packet) 17 gm DAILY PO 04/13/16 08:00 05/13/16 07:59 04/13/16 08:32 17 GM Senna (Senokot Tab) 8.6 mg BID PO 04/12/16 20:00 05/12/16 19:59 04/13/16 08:58 8.6 MG Objective Vital Signs Date Time Temp Pulse Resp B/P Pulse Ox O2 Delivery O2 Flow Rate FiO2 04/13/16 09:19 Room Air 04/13/16 07:40 36.7 69 18 111/70 97 Room Air 04/13/16 00:00 98 Room Air 04/12/16 23:47 36.9 72 20 119/72 98 Room Air 04/12/16 16:01 Room Air 04/12/16 15:39 37.0 68 16 133/85 95 Room Air 04/12/16 11:28 80 16 95 Room Air Physical Exam General Appearance: WD/WN, no apparent distress Eyes: normal inspection, PERRL, EOMI Neck: supple, trachea midline Respiratory/Chest: chest non-tender, lungs clear, normal breath sounds, no respiratory distress Cardiovascular: regular rate, rhythm, no edema, no murmur Abdomen: normal bowel sounds, non tender, soft Extremities: no pedal edema, no calf tenderness Neurologic/Psychiatric: alert, normal mood/affect Skin: normal color, warm/dry Laboratory Results Results Past 24 Hours Test 04/12/16 11:40 04/12/16 16:30 04/12/16 20:16 04/13/16 05:15 Range/Units Bedside Glucose 222 104 121 70-90 mg/dl Sodium Level 142 136-145 mmol/L Potassium Level 5.5 3.5-5.1 mmol/L Chloride Level 107 98-107 mmol/L Carbon Dioxide Level 27 21-32 mmol/L Anion Gap 8.0 3-11 mmol/L Blood Urea Nitrogen 30 7-18 mg/dl Creatinine 1.20 0.60-1.20 mg/dl Est Creatinine Clear Calc Drug Dose 58.1 ml/min Estimated GFR () 55.7 Estimated GFR (Non- 48.1 BUN/Creatinine Ratio 24.7 10-20 Random Glucose 167 70-99 mg/dl Calcium Level 8.5 8.5-10.1 mg/dl Test 04/13/16 05:41 1/17/17 07:52 Range/Units White Blood Count 16.11 4.8-10.8 K/uL Red Blood Count 3.63 4.2-5.4 M/uL Hemoglobin 10.6 12.0-16.0 g/dL Hematocrit 31.7 37-47 % Mean Corpuscular Volume 87.3 80-100 fL Mean Corpuscular Hemoglobin 29.2 25-34 pg Mean Corpuscular Hemoglobin Concent 33.4 32-36 g/dl RDW Standard Deviation 45.6 36.4-46.3 fL RDW Coefficient of Variation 14.4 11.5-14.5 % Platelet Count 394 130-400 K/uL Mean Platelet Volume 11.3 7.4-10.4 fL Bedside Glucose 136 70-90 mg/dl Microbiology Results 04/12/16 Blood Culture, Received Pending 04/12/16 Blood Culture, Received Pending Assessment and Plan Continued [facility] stay due to: multiple IV medications needed Discharge planning: home Resident Tracking Resident Involvement: Resident Care Provided Care Provided: Adult Hospital Medicine
[2016-04-13] MEDS: CEFTRIAXONE SOD INJ 1 GM in DEXTROSE 5% ADD-VANTAGE 50ML 50 ML IV SCH (12:55)
[2016-04-13 15:11] LABS: BLOOD UREA NITROGEN 26 mg/dl (7-18); CALCIUM 8.6 mg/dl (8.5-10.1); CARBON DIOXIDE 28 mmol/L (21-32); CHLORIDE 106 mmol/L (98-107); GLUCOSE 123 mg/dl (70-99); SODIUM 142 mmol/L (136-145)
[2016-04-13 15:17] VITALS: BP 146/70; PULSE 71; TEMP 37.1; O2SAT 94
--- NOTE | 2016-04-13 16:16 | Infectious Disease Progress Nt ---
Progress Note Date of Service Apr 13, 2016. Subjective Pt evaluation today including: conversation w/ patient, physical exam, chart review, lab review, review of studies, review of inpatient medication list Patient is feeling improved today, but she is very fatigued. She states that she did not get very much sleep last night. She did have an abdominal/pelvic CT scan which showed moderate to severe constipation, the kidneys demonstrate cortical atrophy without hydronephrosis, and mild nonspecific right-sided perinephric stranding potentially related to urinary tract infection/ pyelonephritis or recently passed kidney stone, and cardiomegaly. Her repeat blood cultures are pending. Her white blood cell count this morning was 16.11. Her creatinine was 1.30. All Other Systems: Reviewed and Negative Medications Current Inpatient Medications Medications (Trade) Dose Ordered Sig/Frieda Route Start Time Stop Time Status Last Admin Dose Admin Magnesium Hydroxide (Milk Of Magnesia Susp) 30 ml Q6H PRN PO 04/07/16 19:15 05/07/16 19:14 04/13/16 08:25 30 ML Ondansetron HCl (Zofran Inj) 4 mg Q6H PRN IV 04/07/16 19:15 05/07/16 19:14 Insulin Aspart (novoLOG ASPART) SLIDING SCALE G... ACHS SC 04/07/16 21:00 05/07/16 20:59 04/13/16 12:55 20 UNITS Amiodarone HCl (Cordarone Tab) 200 mg DAILY PO 04/08/16 08:00 05/08/16 08:59 04/13/16 08:26 200 MG Aspirin (Ecotrin Tab) 81 mg DAILY PO 04/08/16 08:00 05/08/16 08:59 04/13/16 08:26 81 MG Carvedilol (Coreg Tab) 3.125 mg BIDM PO 04/08/16 08:00 05/08/16 07:59 04/13/16 08:25 3.125 MG Clopidogrel Bisulfate (plAVix TAB) 75 mg DAILY PO 04/08/16 08:00 05/08/16 08:59 04/13/16 08:26 75 MG Levothyroxine Sodium (Synthroid Tab) 137 mcg DAILYBB PO 04/08/16 06:30 05/08/16 06:59 04/13/16 06:09 137 MCG Oxybutynin Chloride (Ditropan Tab) 5 mg BID PO 04/07/16 21:00 05/07/16 20:59 04/13/16 08:26 5 MG Pregabalin (Lyrica Cap) 150 mg QAM PO 04/08/16 08:00 05/08/16 08:59 04/13/16 08:25 150 MG Pregabalin (Lyrica Cap) 300 mg HS PO 04/07/16 21:00 05/07/16 20:59 04/12/16 21:00 300 MG Rosuvastatin Calcium (Crestor Tab) 20 mg DAILY PO 04/08/16 08:00 05/08/16 08:59 04/13/16 08:25 20 MG Tramadol HCl (Ultram Tab) 50 mg Q8 PRN PO 04/07/16 19:30 05/07/16 19:29 04/13/16 06:10 50 MG Tiotropium [place] (Spiriva Handihaler Inhaler) 1 puff QAM INH 04/08/16 08:00 05/08/16 08:59 04/13/16 08:58 1 PUFF Budesonide (Pulmicort Respules 0.5MG/ 2ML Neb Soln) 0.5 mg BIDR INH 04/07/16 20:00 05/07/16 19:59 04/12/16 07:38 0.5 MG Glucose (Glucose 40% Gel) 15-30 GRAMS 15 GRAMS... UD PRN PO 04/07/16 19:45 05/07/16 19:44 Glucose (Glucose Chew Tab) 4-8 Tablets 4 Tabl... UD PRN PO 04/07/16 19:45 05/07/16 19:44 Dextrose (Dextrose 50% 50ML Syringe) 25-50ML OF 50% DW IV FOR... UD PRN IV 04/07/16 19:45 05/07/16 19:44 Glucagon (Glucagon Inj) 1 mg UD PRN SQ 04/07/16 19:45 05/07/16 19:44 Mirtazapine (Remeron Tab) 30 mg HS PO 04/07/16 21:00 05/07/16 20:59 04/12/16 22:53 30 MG Paroxetine HCl (pAXil TAB) 20 mg DAILY PO 04/08/16 08:00 05/08/16 08:59 04/13/16 08:26 20 MG Venlafaxine HCl (effeXOR EXTENDED REL CAP) 75 mg QAM PO 04/08/16 08:00 05/08/16 08:59 04/13/16 08:26 75 MG Venlafaxine HCl (effeXOR EXTENDED REL CAP) 150 mg QAM PO 04/08/16 08:00 05/08/16 08:59 04/13/16 08:26 150 MG Multivitamins/ Minerals (Multivitamin W/ Minerals Tab) 1 tab QAM PO 04/08/16 08:00 05/08/16 08:59 04/13/16 08:26 1 TAB Pramipexole Dihydrochloride (miraPEX TAB) 0.75 mg HS PO 04/07/16 21:00 05/07/16 20:59 04/12/16 22:52 0.75 MG Famotidine (Pepcid Tab) 20 mg QPM PO 04/07/16 21:00 05/07/16 20:59 04/12/16 22:53 20 MG Miscellaneous Information (Consult Glycemic Management Pharmacy) 1 ea UD PRN N/A 04/08/16 16:49 05/08/16 16:48 Enoxaparin Sodium 40 mg 40 mg QAM SQ 04/11/16 08:00 05/11/16 07:59 04/13/16 08:26 40 MG Ceftriaxone Sodium/Dextrose (Rocephin Inj/ Dextrose Add-[place] 50ML) 50 ml @ 100 mls/hr Q24H IV 04/11/16 12:00 04/25/16 11:59 04/13/16 12:55 100 MLS/HR Albuterol/ Ipratropium (Combivent Respimat Inh) 1 puffs QID INH 04/12/16 15:00 05/12/16 14:59 04/13/16 12:55 1 PUFFS Insulin Glargine (Lantus Solostar Pen) 50 unit PM SC 04/12/16 21:00 05/12/16 20:59 04/12/16 22:55 50 UNIT Polyethylene (Miralax Powder Packet) 17 gm DAILY PO 04/13/16 08:00 05/13/16 07:59 04/13/16 08:32 17 GM Senna (Senokot Tab) 8.6 mg BID PO 04/12/16 20:00 05/12/16 19:59 04/13/16 08:58 8.6 MG Objective Vital Signs Date Time Temp Pulse Resp B/P Pulse Ox O2 Delivery O2 Flow Rate FiO2 04/13/16 15:17 37.1 71 18 146/70 94 Room Air 04/13/16 09:19 Room Air 04/13/16 07:40 36.7 69 18 111/70 97 Room Air 04/13/16 00:00 98 Room Air 04/12/16 23:47 36.9 72 20 119/72 98 Room Air Physical Exam General Appearance: WD/WN, no apparent distress Eyes: normal inspection, sclerae normal ENT: hearing grossly normal Neck: supple, trachea midline Respiratory/Chest: no respiratory distress, no accessory muscle use Cardiovascular: regular rate, rhythm Neurologic/Psychiatric: alert, normal mood/affect Skin: normal color, warm/dry, no rash Laboratory Results CT SCAN OF THE ABDOMEN AND PELVIS WITHOUT IV CONTRAST CLINICAL HISTORY: Right flank pain. COMPARISON STUDY: Abdominal CT dated 05/17/12. TECHNIQUE: CT scan of the abdomen and pelvis is performed from the lung bases to the proximal femora. Images are reviewed in the axial, sagittal, and coronal planes. IV contrast was not administered for this examination as per the referring clinician. Automated dose control exposure was utilized. CT DOSE: 1793.24 mGy.cm FINDINGS: Lung bases: Midline sternotomy wires are noted. The heart is enlarged and without pericardial effusion. The coronary arteries are calcified. There is elevation of the left hemidiaphragm. There are small pleural effusions and bibasilar atelectasis. Liver: The unenhanced liver is enlarged, measuring 22 cm in length. The liver demonstrates diffusely diminished attenuation consistent with hepatic steatosis. More focal fat is seen adjacent to the falciform ligament. There is no intrahepatic biliary ductal dilatation. Gallbladder: Unremarkable. Spleen: Normal in size and attenuation. Pancreas: The unenhanced pancreas is moderately atrophic and grossly unremarkable. Adrenal glands: A 3.2 cm fat-containing lesion is again seen arising from the right adrenal gland. 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 Kidneys: The unenhanced kidneys demonstrate cortical atrophy and are without hydronephrosis. There are no renal calculi identified. There is no evidence of contour deforming renal mass lesion. There is mild right-sided perinephric stranding. Abdominal vasculature: The abdominal aorta is normal in course and caliber noting advanced atherosclerotic calcification. Bowel: The small bowel and colon are normal in course and caliber. There is mild colonic diverticulosis without CT evidence of acute diverticulitis. Moderate to severe constipation is observed. The appendix is not visualized. Peritoneum: There is no intraperitoneal free air or abdominal ascites. There is a fat-containing umbilical hernia. Lymphadenopathy: None. Pelvic viscera: The bladder, uterus, and adnexa are normal as visualized. There is a fat-containing left inguinal hernia. Skeletal structures: The skeletal structures are osteopenic. Moderate lumbosacral spondylosis is observed. No lytic or blastic lesions are seen. Soft tissues: There is mild body wall edema. Foci of subcutaneous gas within the right lower quadrant abdominal pannus are likely related to subcutaneous injections. IMPRESSION: 1. Moderate to severe constipation. 2. The kidneys demonstrate cortical atrophy and are without hydronephrosis. No renal calculi are identified. 3. There is mild and nonspecific right-sided perinephric stranding. This could be related to urinary tract infection/pyelonephritis or could represent the sequelae of a recently passed kidney stone. Correlation with clinical findings and urinalysis will be required. 4. Cardiomegaly. 5. Trace pleural effusions. 6. Additional changes as above. Item Value Date Time Blood Culture Received 04/12/16 1345 Blood Pending Blood Culture Received 04/12/16 1340 Blood Pending MRSA DNA Surveillance Screen - Final Complete 04/07/16 2300 Nasal Specimen Negative for MRSA by DNA Probe Blood Culture - Final Complete 04/07/16 1929 Blood Escherichia Coli Blood Culture - Final Complete 04/07/16 1921 Blood Escherichia Coli Urine Culture - Final Complete 04/07/16 1800 Urine , Clean Catch Escherichia Coli Last 24 Hours Test 04/12/16 16:30 04/12/16 20:16 04/13/16 05:15 04/13/16 05:41 Bedside Glucose 104 mg/dl 121 mg/dl Sodium Level 142 mmol/L Potassium Level 5.5 mmol/L Chloride Level 107 mmol/L Carbon Dioxide Level 27 mmol/L Anion Gap 8.0 mmol/L Blood Urea Nitrogen 30 mg/dl Creatinine 1.20 mg/dl Est Creatinine Clear Calc Drug Dose 58.1 ml/min Estimated GFR () 55.7 Estimated GFR (Non- 48.1 BUN/Creatinine Ratio 24.7 Random Glucose 167 mg/dl Calcium Level 8.5 mg/dl White Blood Count 16.11 K/uL Red Blood Count 3.63 M/uL Hemoglobin 10.6 g/dL Hematocrit 31.7 % Mean Corpuscular Volume 87.3 fL Mean Corpuscular Hemoglobin 29.2 pg Mean Corpuscular Hemoglobin Concent 33.4 g/dl RDW Standard Deviation 45.6 fL RDW Coefficient of Variation 14.4 % Platelet Count 394 K/uL Mean Platelet Volume 11.3 fL Test 04/13/16 07:52 04/13/16 11:53 04/13/16 14:27 04/13/16 16:02 Bedside Glucose 136 mg/dl 227 mg/dl Sodium Level 142 mmol/L Potassium Level mmol/L Chloride Level 106 mmol/L Carbon Dioxide Level 28 mmol/L Anion Gap 8.0 mmol/L Blood Urea Nitrogen 26 mg/dl Creatinine 1.30 mg/dl Est Creatinine Clear Calc Drug Dose 53.7 ml/min Estimated GFR () 50.6 Estimated GFR (Non- 43.6 BUN/Creatinine Ratio 20.0 Random Glucose 123 mg/dl Calcium Level 8.6 mg/dl Assessment and Plan Patient is a diabetic female with hyperglycemia on admission along with E. Coli bacteremia, E. Coli UTI, and BLANCA. Currently on IV Ceftriaxone. She has received 7 days total thus far. Recommend continuing IV abx for now. Pending further improvement, may be able to transition to PO Keflex to complete 2 weeks. We will continue to follow. PROVIDER ADDENDUM: Patient reviewed with his care. Agree with above assessment.
[2016-04-13] MEDS ORDERED: CEPH500C2 PO ×2 (17:07→17:37)
[2016-04-13 17:12] VITALS: BP 146/70; PULSE 71; TEMP 37.1; O2SAT 94
--- NOTE | 2016-04-13 17:22 | Discharge Instructions ---
Discharge Instructions Admission Reason for Admission: Jason, Dehydration, Hyperglycemia, Pneumonia Discharge Discharge Diagnosis / Problem: Urinary tract infection, Hyperglycemia, Hyperkalemia Discharge Goals Goal(s): Decrease discomfort, Improve function, Increase independence, Improve disease control, Improve nutritional status, Learn about illness, Diagnostic testing, Therapeutic intervention, Screening, Prevent Disease Progression, Specific goals Activity Recommendations Activity Limitations: per Instructions/Follow-up section Lifting Limitations: none . Instructions / Follow-Up Instructions / Follow-Up You came in with highly elevated Blood glucose level , Urinary tract infection and developed an elevated potassium level You will need to have your potassium level checked outpatient in 2 days (2015) at your lab. This is very important. Please check Blood glucose regularly Take Insulin as directed. 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 Please follow dietary recommendations Followup with PCP within 1 week. Do not take amiodarone at home unless you have already stopped as directed by Dr. Mayen For your Urinary tract infection, please take antibiotic (Keflex) as prescribed Current Hospital Diet Patient's current hospital diet: Diabetes Type 2 Diet, AHA Diet (Heart Healthy) , Low Sodium Diet (2gm Na) Discharge Diet Recommended Diet: Diabetes Type 2 Diet Pending Studies Studies pending at discharge: yes List of pending studies: Repeat Blood cultures Laboratory Results Hemoglobin A1c Test 04/08/16 06:29 Range/Units Estimated Average Glucose 392 mg/dl Hemoglobin A1c 15.3 H 4.5-5.6 % Medical Emergencies . Who to Call and When: Medical Emergencies: If at any time you feel your situation is an emergency, please call 911 immediately. . Non-Emergent Contact Non-Emergency issues call your: Primary Care Provider Call Non-Emergent contact if: you have a fever . . "Provider Documentation" section prepared by Darius Butler. VTE Core Measure Inpt VTE Proph given/why not?: Unfractionated heparin SQ
[2016-04-13] MEDS ORDERED: SNK PO (17:37)
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
[2016-11-09] MEDS ORDERED: INSU1.2I SQ (13:41)
[2016-12-07] MEDS ORDERED: CEPH500C2 PO (13:03)
[2016-12-07] MEDS ORDERED: DOXY100C76 PO (14:14)
== END 2016-04-13 18:40 | disposition home or self-care (01) | DRG 871 ==
LOC: ENRESERVTM → ENRESERVDT → EDBD 14:36 → C.EDA 14:37 → C.4E 19:05
PROVIDERS: ADMIT Hospitalist; ATTEND Family Medicine
DX: A41.51 Sepsis due to Escherichia coli [E. coli] (principal); J18.9 Pneumonia, unspecified organism; G93.41 Metabolic encephalopathy; N39.0 Urinary tract infection, site not specified; N17.9 Acute kidney failure, unspecified; E87.1 Hypo-osmolality and hyponatremia; N12 Tubulo-interstitial nephritis, not specified as acute or chronic; K57.92 Diverticulitis of intestine, part unspecified, without perforation or abscess without bleeding; J44.0 Chronic obstructive pulmonary disease with (acute) lower respiratory infection; E11.65 Type 2 diabetes mellitus with hyperglycemia; K21.9 Gastro-esophageal reflux disease without esophagitis; E11.42 Type 2 diabetes mellitus with diabetic polyneuropathy; E11.319 Type 2 diabetes mellitus with unspecified diabetic retinopathy without macular edema; E11.21 Type 2 diabetes mellitus with diabetic nephropathy; Z79.4 Long term (current) use of insulin; E03.9 Hypothyroidism, unspecified; I73.9 Peripheral vascular disease, unspecified; G47.33 Obstructive sleep apnea (adult) (pediatric); F32.9 Major depressive disorder, single episode, unspecified; M54.9 Dorsalgia, unspecified; E78.5 Hyperlipidemia, unspecified; Z91.19 Patient's noncompliance with other medical treatment and regimen; G25.81 Restless legs syndrome; I25.10 Atherosclerotic heart disease of native coronary artery without angina pectoris; Z95.1 Presence of aortocoronary bypass graft; E55.9 Vitamin D deficiency, unspecified; Z79.82 Long term (current) use of aspirin; I12.9 Hypertensive chronic kidney disease with stage 1 through stage 4 chronic kidney disease, or unspecified chronic kidney disease; N18.9 Chronic kidney disease, unspecified; I25.5 Ischemic cardiomyopathy; E11.621 Type 2 diabetes mellitus with foot ulcer; Z87.891 Personal history of nicotine dependence; K42.9 Umbilical hernia without obstruction or gangrene; K59.00 Constipation, unspecified; E66.9 Obesity, unspecified; N20.0 Calculus of kidney

== ENCOUNTER → 2016-04-15 | Outpatient (CLI) | payer OTHER ==
[~2016-04-15] MED LIST changes: -AMIO200T4 PO; +ASPI81TA85 PO; +CARV3.122 PO; +CEPH500C2 PO; -CLOP1TAB15 PO; -CRG3125 PO; -DOCU-94 PO; +DOXY100C76 PO; +EFFSR150 PO; +EFFSR75 PO; +ERGO500037 PO; -FAMO20TA11 PO; +FAMO20TA9 PO; +INSU1.2I SQ; +INSU1INJ32 SC; -INSU3INJ3 SQ; -IPRASOL4 INH; -LEVO125T72 PO; -LISI2.5T5 PO; +LSN25 PO; -MAGNSUS5 PO; +MULT1CAP7 PO; -NVLGI SC; +NVLGI/PEN SQ; -NYSS5 PO; +OXYB5TAB74 PO; -OXYC1TAB3 PO; -PARO20TA4 PO; +PLV75 PO; -PRD20 PO; +PREG150C PO; -PRENTAB26 PO; -PROTEIN PO; +PXL20 PO; +Proair HFA INH; -ROSU20TA PO; +ROSU20TA22 PO; +SNK PO; +SPIR25TA PO; -SPR25 PO; +SYN137 PO; -TMF75 PO; +TRAM-10 PO; -VENL150C PO
[2016-04-15 17:20] LABS: HEMATOCRIT 34.5 % (37-47); MEAN CELL VOLUME 90.3 fL (80-100); MEAN CORPUSCULAR HEMOGLOBIN 29.1 pg (25-34); MEAN CORPUSCULAR HGB CONC 32.2 g/dl (32-36); MEAN PLATELET VOLUME 11.4 fL (7.4-10.4); PLATELET COUNT 462 K/uL (130-400); RED BLOOD COUNT 3.82 M/uL (4.2-5.4)
[2016-04-15 18:00] LABS: BLOOD UREA NITROGEN 23 mg/dl (7-18); BUN/CREATININE RATIO 17.8 (10-20); CALCIUM 8.9 mg/dl (8.5-10.1); CARBON DIOXIDE 29 mmol/L (21-32); CHLORIDE 102 mmol/L (98-107); GLUCOSE 462 mg/dl (70-99); POTASSIUM 4.8 mmol/L (3.5-5.1); SODIUM 139 mmol/L (136-145)
[2016-04-15 18:15] LABS: BETA-HYDROXYBUTYRATE 1.32 mg/dL (0.2-2.81)
== END | disposition home or self-care (01) ==
LOC: C.LABBFT 13:02
PROVIDERS: ATTEND Family Medicine
DX: E87.5 Hyperkalemia (principal); D72.829 Elevated white blood cell count, unspecified

== ENCOUNTER → 2016-06-15 | Outpatient (CLI) | payer OTHER ==
[2016-06-15 14:50] LABS: ESTIMATED AVERAGE GLUCOSE 312 mg/dl; HA1C FLAG Normal (Normal)
== END | disposition home or self-care (01) ==
LOC: C.LAB1850 12:38
PROVIDERS: ATTEND Nurse Practitioner Family
DX: E03.9 Hypothyroidism, unspecified (principal); E11.8 Type 2 diabetes mellitus with unspecified complications

== ENCOUNTER → 2016-10-05 | Outpatient (CLI) | payer OTHER ==
[2016-10-05 16:17] LABS: BLOOD UREA NITROGEN 26 mg/dl (7-18); BUN/CREATININE RATIO 19.8 (10-20); CALCIUM 9.4 mg/dl (8.5-10.1); CARBON DIOXIDE 25 mmol/L (21-32); CHLORIDE 100 mmol/L (98-107); CHOLESTEROL 177 mg/dl (0-200); CHOLESTEROL/HDL RATIO 5.1; GLUCOSE 600 mg/dl (70-99); HDL CHOLESTEROL 35 mg/dl; LDL CHOLESTEROL CALCULATED 87 mg/dl; POTASSIUM 5.2 mmol/L (3.5-5.1); SODIUM 134 mmol/L (136-145); TRIGLYCERIDES 276 mg/dl (0-150); VERY LOW DENSITY LIPOPROT CALC 55 mg/dl
[2016-10-05 16:32] LABS: BETA-HYDROXYBUTYRATE 4.68 mg/dL (0.2-2.81)
== END | disposition home or self-care (01) ==
LOC: C.LAB 15:03
PROVIDERS: ATTEND Internal Medicine
DX: E11.8 Type 2 diabetes mellitus with unspecified complications (principal); E87.5 Hyperkalemia

== ENCOUNTER → 2016-11-09 | Outpatient (CLI) | payer OTHER ==
[2016-11-09 15:59] LABS: BLOOD UREA NITROGEN 25 mg/dl (7-18)
== END | disposition home or self-care (01) ==
LOC: C.LAB 15:08
PROVIDERS: ATTEND Emergency Medicine
DX: S91.302A Unspecified open wound, left foot, initial encounter (principal); X58.XXXA Exposure to other specified factors, initial encounter

== ENCOUNTER → 2016-11-12 | Outpatient (CLI) | payer OTHER ==
[~2016-11-12] MED LIST changes: +GADAVIST IV PRN; -INSU1INJ32 SC
--- NOTE | 2016-11-12 17:39 | DIAGNOSTIC IMAGING REPORT ---
MRI LEFT FOREFOOT COMBO CLINICAL HISTORY: Nonhealing wound of the third toe. COMPARISON STUDY: CT scan of the left foot dated 04/09/2012. TECHNIQUE: MRI of the left forefoot is performed utilizing various T1 and T2-weighted sequences in the axial, sagittal, and coronal planes. Contrast-enhanced sequences were acquired following the IV administration of 11 cc of Gadavist. Note that interpretation is significantly suboptimal without plain film correlate. The Examination is also degraded by motion artifact. FINDINGS: The third distal phalanx is not identified and may be surgically absent. There is no marrow signal abnormality identified typical in appearance for osteomyelitis. Hammertoe deformities are suggested in the second through fifth toes. There is advanced degenerative change and subluxation seen at the first interphalangeal joint. There is mild soft tissue edema seen within the tip of the third toe. This likely represents some mild cellulitis. A cutaneous defect suggests ulceration. There is no organized fluid collection to indicate abscess. The partially imaged flexor and extensor tendons are grossly intact. IMPRESSION: 1. Motion compromised examination. 2. There is no marrow signal abnormality identified typical for osteomyelitis. 3. The third distal phalanx is not identified and may be surgically absent. Correlation with the patient's medical/surgical history will be required. 4. Findings suggest mild cellulitis and ulceration at the tip of the third toe. 5. Degenerative change as above. Dictated: 11/12/2016 4:02 PM Transcribed: 11/12/2016 5:39 PM Efren Electronically signed by: Andrew Navarro M.D. 11/12/2016 5:54 PM Dictated Date/Time: 11/12/2016 4:02 PM
== END | disposition home or self-care (01) ==
LOC: C.MRI 13:32
PROVIDERS: ATTEND Emergency Medicine
DX: L97.529 Non-pressure chronic ulcer of other part of left foot with unspecified severity (principal)

== ENCOUNTER → 2016-12-24 | Outpatient (CLI) | payer OTHER ==
[~2016-12-24] MED LIST changes: -CEPH500C2 PO; -DOXY100C76 PO; -GADAVIST IV PRN
[2016-12-24 15:17] LABS: BLOOD UREA NITROGEN 26 mg/dl (7-18); BUN/CREATININE RATIO 23.4 (10-20); CALCIUM 9.1 mg/dl (8.5-10.1); CARBON DIOXIDE 28 mmol/L (21-32); CHLORIDE 101 mmol/L (98-107); GLUCOSE 301 mg/dl (70-99); POTASSIUM 4.4 mmol/L (3.5-5.1); SODIUM 136 mmol/L (136-145)
[2016-12-24 15:26] LABS: BETA-HYDROXYBUTYRATE 4.33 mg/dL (0.2-2.81)
== END | disposition home or self-care (01) ==
LOC: C.LAB1850 13:16
PROVIDERS: ATTEND Internal Medicine
DX: E87.5 Hyperkalemia (principal)

== ENCOUNTER → 2016-12-24 | Outpatient (CLI) | payer OTHER | END | disposition home or self-care (01) | LOC: C.LAB1850 14:27 | PROVIDERS: ATTEND Nurse Practitioner Family | DX: E11.8 Type 2 diabetes mellitus with unspecified complications (principal) ==

== ENCOUNTER → 2017-02-07 | Outpatient (CLI) | payer OTHER ==
[~2017-02-07] MED LIST changes: +CEPH500C2 PO; +DTR/5 PO; +HYDR25TA4 PO; -OXYB5TAB74 PO
[2017-02-07 17:51] LABS: BASO % 0.4 %; BASO ABS # 0.05 K/uL (0-0.2); COMPLETE YES; EOS % 1.1 %; HEMATOCRIT 36.1 % (37-47); IG% 0.5 %; LYMPH % 24.4 %; LYMPH ABS # 2.98 K/uL (1.2-3.4); MEAN CELL VOLUME 88.3 fL (80-100); MEAN CORPUSCULAR HEMOGLOBIN 27.9 pg (25-34); MEAN CORPUSCULAR HGB CONC 31.6 g/dl (32-36); MEAN PLATELET VOLUME 11.3 fL (7.4-10.4); MONO % 6.1 %; NEUT % 67.5 %; PLATELET COUNT 190 K/uL (130-400); RED BLOOD COUNT 4.09 M/uL (4.2-5.4); WHITE BLOOD COUNT 12.19 K/uL (4.8-10.8)
[2017-02-07 17:55] LABS: BLOOD UREA NITROGEN 37 mg/dl (7-18); BUN/CREATININE RATIO 30.2 (10-20); CALCIUM 9.1 mg/dl (8.5-10.1); CARBON DIOXIDE 23 mmol/L (21-32); CHLORIDE 107 mmol/L (98-107); CREATININE 1.23 mg/dl (0.60-1.20); GLUCOSE 159 mg/dl (70-99); POTASSIUM 5.6 mmol/L (3.5-5.1); SODIUM 139 mmol/L (136-145)
== END | disposition home or self-care (01) ==
LOC: C.LAB1850 16:28
PROVIDERS: ATTEND Internal Medicine
DX: R06.02 Shortness of breath (principal)

== ENCOUNTER → 2017-02-11 | Outpatient (CLI) | payer OTHER ==
[2017-02-11 12:24] LABS: BLOOD UREA NITROGEN 34 mg/dl (7-18); BUN/CREATININE RATIO 29.3 (10-20); CARBON DIOXIDE 27 mmol/L (21-32); CHLORIDE 111 mmol/L (98-107); CREATININE 1.15 mg/dl (0.60-1.20); GLUCOSE 70 mg/dl (70-99); POTASSIUM 4.6 mmol/L (3.5-5.1); SODIUM 144 mmol/L (136-145)
== END | disposition home or self-care (01) ==
LOC: C.LAB1850 10:53
PROVIDERS: ATTEND Internal Medicine Cardiovascular Disease
DX: E87.5 Hyperkalemia (principal)

== ENCOUNTER → 2017-02-23 | Outpatient (CLI) | payer OTHER ==
[~2017-02-23] MED LIST changes: +CEPH-571 PO; -CEPH500C2 PO
[2017-02-23 16:01] LABS: BASO % 0.4 %; BASO ABS # 0.05 K/uL (0-0.2); COMPLETE YES; EOS % 1.4 %; HEMATOCRIT 37.9 % (37-47); IG% 0.5 %; LYMPH % 36.7 %; LYMPH ABS # 4.11 K/uL (1.2-3.4); MEAN CELL VOLUME 85.9 fL (80-100); MEAN CORPUSCULAR HEMOGLOBIN 27.7 pg (25-34); MEAN CORPUSCULAR HGB CONC 32.2 g/dl (32-36); MONO % 7.9 %; NEUT % 53.1 %; PLATELET COUNT 290 K/uL (130-400); RED BLOOD COUNT 4.41 M/uL (4.2-5.4); WHITE BLOOD COUNT 11.19 K/uL (4.8-10.8)
[2017-02-23 16:25] LABS: BLOOD UREA NITROGEN 29 mg/dl (7-18); CALCIUM 9.1 mg/dl (8.5-10.1); CARBON DIOXIDE 24 mmol/L (21-32); CHLORIDE 103 mmol/L (98-107); CREATININE 1.24 mg/dl (0.60-1.20); GLUCOSE 278 mg/dl (70-99); POTASSIUM 4.3 mmol/L (3.5-5.1); SODIUM 136 mmol/L (136-145)
== END | disposition home or self-care (01) ==
LOC: C.LAB1850 15:20
PROVIDERS: ATTEND Internal Medicine
DX: D72.829 Elevated white blood cell count, unspecified (principal); I50.42 Chronic combined systolic (congestive) and diastolic (congestive) heart failure

== ENCOUNTER → 2017-03-01 | Outpatient (CLI) | payer OTHER ==
--- NOTE | 2017-03-01 13:10 | DIAGNOSTIC IMAGING REPORT ---
RIGHT THIRD TOE 3 VIEWS CLINICAL HISTORY: Infection. FINDINGS: 3 views of the right third toe are correlated with radiographs of the right foot dated 03/10/2013. The examination is degraded by inability to properly position the patient in separate the toes. The skeletal structures are osteopenic. No fracture is seen. There is no bony erosion or periostitis identified. Arthritic change is noted at the third distal interphalangeal joint. The metatarsophalangeal and proximal interphalangeal joints are maintained. Soft tissue edema is noted in the third toe. IMPRESSION: Soft tissue swelling with no acute bony abnormality identified in the third toe. Electronically signed by: Andrew Navarro M.D. 03/01/2017 1:09 PM Dictated Date/Time: 03/01/2017 1:07 PM
== END | disposition home or self-care (01) ==
LOC: C.RAD 12:20
PROVIDERS: ATTEND Emergency Medicine
DX: M79.89 Other specified soft tissue disorders (principal)

== ENCOUNTER → 2017-03-15 | Outpatient (CLI) | payer OTHER | END | disposition home or self-care (01) | LOC: C.RDSM 11:59 | PROVIDERS: ATTEND Physical Medicine & Rehabilitation Sports Medicine | DX: M79.674 Pain in right toe(s) (principal); M79.675 Pain in left toe(s) ==

== ENCOUNTER → 2017-03-23 | Outpatient (CLI) | payer OTHER ==
[~2017-03-23] MED LIST changes: +ALBU18002 INH; +CARV6.252 PO; +DXY100 PO; +ETHA1TAB3 PO; +INSDGI SQ; +INSDGIPEN SC; +INSU100I2 SQ; +LEVO150T9 PO; +MAGN400T6 PO; +MCRK20 PO; +MGNO400 PO; +MIRT30TA2 PO; -PRAM0.754 PO; +PRAM0.757 PO; +PROAIR INH; -ROSU20TA22 PO; +ROSU20TA24 PO; +SENN1TAB80 PO; +TRAZ1TAB49 PO; +[UNRECOGNIZED DRUG - CODE] PO
--- NOTE | 2017-03-24 13:46 | MAMMOGRAPHY REPORT ---
BILATERAL DIGITAL SCREENING MAMMOGRAM TOMOSYNTHESIS WITH CAD: 03/23/2017 CLINICAL HISTORY: Routine screening. Patient has no complaints. TECHNIQUE: Breast tomosynthesis in addition to standard 2D mammography was performed. Current study was also evaluated with a Computer Aided Detection (CAD) system. COMPARISON: Comparison is made to exam dated: 03/19/2016 mammogram - [facility]. BREAST COMPOSITION: There are scattered areas of fibroglandular density in both breasts. FINDINGS: There is new, mild diffuse trabecular edema and mild diffuse skin thickening of the breast s, which may be related to fluid overload, CHF or certain medications. Clinical correlation is recom mended. There are scattered bilateral benign round and coarse calcifications. Mild vascular calcifi cation in both breasts. No suspicious mass, architectural distortion or cluster of microcalcificatio ns is seen. IMPRESSION: ACR BI-RADS CATEGORY 1: NEGATIVE 1. Mild new diffuse skin thickening and trabecular edema of the breasts, which may be related to flu id overload, CHF or certain medications. Clinical correlation is recommended. 2. No suspicious masses, distortions calcifications or evidence of malignancy in both breasts. Anatoliy mmend routine screening in 1 year. The patient will receive written notification of the results. Approximately 10% of breast cancers are not detected with mammography. A negative mammographic report should not delay biopsy if a clinically suggestive mass is present. Yolanda Contreras M.D. ay/:03/23/2017 15:54:20 Crystallizer Operator: Kailyn Gar, [facility] letter sent: Normal 1/2 BI-RADS Code: ACR BI-RADS Category 1: Negative
== END | disposition home or self-care (01) ==
LOC: C.MAMM 14:57
PROVIDERS: ATTEND Internal Medicine
DX: Z12.31 Encounter for screening mammogram for malignant neoplasm of breast (principal)

== ENCOUNTER → 2017-03-23 | Outpatient (CLI) | payer OTHER ==
[2017-03-23 16:38] LABS: BASO % 0.5 %; BASO ABS # 0.05 K/uL (0-0.2); EOS % 1.2 %; EOS ABS # 0.12 K/uL (0-0.5); HEMATOCRIT 35.8 % (37-47); HEMOGLOBIN 11.3 g/dL (12.0-16.0); IG# 0.03 K/uL (0.00-0.02); LYMPH % 36.6 %; MEAN CELL VOLUME 87.5 fL (80-100); MEAN CORPUSCULAR HEMOGLOBIN 27.6 pg (25-34); MEAN CORPUSCULAR HGB CONC 31.6 g/dl (32-36); MEAN PLATELET VOLUME 11.4 fL (7.4-10.4); MONO % 7.3 %; MONO ABS # 0.76 K/uL (0.11-0.59); NEUT % 54.1 %; NEUT ABS # 5.63 K/uL (1.4-6.5); PLATELET COUNT 227 K/uL (130-400); RED CELL DISTRIBUTION WIDTH CV 15.4 % (11.5-14.5); RED CELL DISTRIBUTION WIDTH SD 48.9 fL (36.4-46.3); WHITE BLOOD COUNT 10.39 K/uL (4.8-10.8)
[2017-03-23 16:57] LABS: ALBUMIN 3.3 gm/dl (3.4-5.0); BLOOD UREA NITROGEN 28 mg/dl (7-18); CALCIUM 8.7 mg/dl (8.5-10.1); CARBON DIOXIDE 23 mmol/L (21-32); CREATININE 1.18 mg/dl (0.60-1.20); GLUCOSE 135 mg/dl (70-99); POTASSIUM 4.7 mmol/L (3.5-5.1); SODIUM 141 mmol/L (136-145)
== END | disposition home or self-care (01) ==
LOC: C.LAB1850 15:46
PROVIDERS: ATTEND Internal Medicine Pulmonary Disease
DX: J45.909 Unspecified asthma, uncomplicated (principal); E11.29 Type 2 diabetes mellitus with other diabetic kidney complication; E11.65 Type 2 diabetes mellitus with hyperglycemia; R05 Cough; Z12.31 Encounter for screening mammogram for malignant neoplasm of breast; R06.02 Shortness of breath

== ENCOUNTER → 2017-03-24 | Outpatient (CLI) | payer OTHER ==
[~2017-03-24] MED LIST changes: -ALBU18002 INH; -CARV6.252 PO; -DXY100 PO; -ETHA1TAB3 PO; -INSDGI SQ; -INSDGIPEN SC; -INSU100I2 SQ; -LEVO150T9 PO; -MAGN400T6 PO; -MCRK20 PO; -MGNO400 PO; -MIRT30TA2 PO; +OPTIRAY 320 IV PRN; +PRAM0.754 PO; -PRAM0.757 PO; -PROAIR INH; +ROSU20TA22 PO; -ROSU20TA24 PO; -SENN1TAB80 PO; -TRAZ1TAB49 PO; -[UNRECOGNIZED DRUG - CODE] PO
--- NOTE | 2017-03-24 12:24 | DIAGNOSTIC IMAGING REPORT ---
CT ANGIOGRAPHY OF THE CHEST, PULMONARY EMBOLUS PROTOCOL CLINICAL HISTORY: Cough. Shortness of breath. COMPARISON STUDY: Chest radiograph April 12, 2016. TECHNIQUE: Following IV administration of 93 mL of Optiray-320, helical axial images of the chest were obtained utilizing the pulmonary embolus protocol. Maximal intensity projections and sagittal and coronal reformats were viewed on an independent 3D workstation. IV contrast was administered without complication. A dose lowering technique was utilized adhering to the principles of ALARA. CT DOSE: 521.05 mGycm FINDINGS: No central or lobar pulmonary emboli are identified. Segmental and subsegmental pulmonary arteries are suboptimally assessed due to quantum mottle artifact. Heart is moderately enlarged. There is extensive coronary artery calcification. There are median sternotomy wires and postsurgical findings consistent with bypass grafting. No enlarged thoracic lymph nodes are present. No pneumothorax or pleural effusion is noted. There is mild interlobular septal thickening. Mild multifocal groundglass opacities are present. Central airways are patent. There are no suspicious osseous lesions. Visualized portions of the upper abdomen are unremarkable. IMPRESSION: 1. No central or lobar pulmonary emboli. Segmental and subsegmental pulmonary arteries suboptimally assessed due to quantum mottle artifact. 2. Moderate cardiomegaly and mild interstitial pulmonary edema. 3. No consolidation to suggest pneumonia. Electronically signed by: Rodriguez Bauer M.D. 03/24/2017 12:22 PM Dictated Date/Time: 03/24/2017 12:10 PM
== END | disposition home or self-care (01) ==
LOC: C.CTS 11:25
PROVIDERS: ATTEND Internal Medicine Pulmonary Disease
DX: R05 Cough (principal); I51.7 Cardiomegaly

== ENCOUNTER 2017-04-04 15:38 | Emergency (ER) | payer OTHER ==
[~2017-04-04] VITALS: Ht 167.6 cm; Wt 122.1 kg
[~2017-04-04 15:38] MED LIST changes: -OPTIRAY 320 IV PRN; -ROSU20TA22 PO; +ROSU20TA33 PO
[2017-04-04 15:40] VITALS: TEMP 36.9; Ht 167.6 cm; Wt 122.1 kg
[2017-04-04] MEDS ORDERED: ALBU18002 INH (16:03)
[2017-04-04] MEDS ORDERED: SENN1TAB80 PO (16:03)
[2017-04-04] MEDS ORDERED: LEVO150T9 PO (16:46)
[2017-04-04] MEDS ORDERED: INSU100I2 SQ (16:46)
--- NOTE | 2017-04-04 17:10 | DIAGNOSTIC IMAGING REPORT ---
CT SCAN OF THE BRAIN WITHOUT IV CONTRAST CLINICAL HISTORY: Fall. COMPARISON STUDY: CT of the brain dated 04/09/2012. TECHNIQUE: Unenhanced axial CT scan of the brain is performed from the vertex to the skull base. A dose lowering technique was utilized adhering to the principles of ALARA. CT DOSE: 712.55 mGy.cm FINDINGS: Brain parenchyma: There is minimal periventricular microangiopathic change. There is no hemorrhage, mass effect, or evidence of acute territorial ischemia by CT criteria. 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 Gomes-white matter is preserved. No extra-axial fluid collection is seen. Ventricles, sulci, cisterns: Normal in configuration. Intracranial vasculature: There is advanced atherosclerotic calcification of the cavernous carotid and vertebral arteries. Calvarium: The skeletal structures are osteopenic. The calvarium appears intact. Sinuses and mastoids: There is evidence of previous paranasal sinus surgery. The visualized paranasal sinuses are clear. The mastoid air cells are well pneumatized. Orbits: The bony orbits are grossly intact. There are bilateral ocular lens implants. IMPRESSION: There is no hemorrhage, mass effect, or evidence of acute territorial ischemia by CT criteria. Electronically signed by: Andrew Navarro M.D. 04/04/2017 5:09 PM Dictated Date/Time: 04/04/2017 5:07 PM
--- NOTE | 2017-04-04 17:53 | DIAGNOSTIC IMAGING REPORT ---
L KNEE 1 OR 2 VIEWS ROUTINE CLINICAL HISTORY: Fall. Bilateral knee pain. COMPARISON: Left knee radiographs October 08, 2013. FINDINGS: Alignment of the left knee is anatomic. No acute fracture is identified. Joint spaces are preserved. There is spurring of the superior pole of the patella and the tibial tubercle. There are surgical clips possibly from bypass grafting. There is extensive vascular calcification. Prepatellar soft tissue swelling is present. There may be a small left knee joint effusion. IMPRESSION: 1. No acute fracture. 2. Prepatellar soft tissue swelling. 3. Possible small left knee joint effusion. Electronically signed by: Rodriguez Bauer M.D. 04/04/2017 5:52 PM Dictated Date/Time: 04/04/2017 5:50 PM
--- NOTE | 2017-04-04 17:55 | DIAGNOSTIC IMAGING REPORT ---
RIGHT KNEE 2 VIEWS CLINICAL HISTORY: Fall with right knee pain. FINDINGS: AP and crosstable lateral views of the right knee are obtained. No prior studies are available for comparison at the time of dictation. The skeletal structures are osteopenic. No fracture is seen. There is mild tricompartmental degenerative joint space narrowing. Bony overgrowth is seen at the anterior tibial tuberosity. There is no large joint effusion. Prepatellar soft tissue swelling is noted. Atherosclerotic calcification is present in the popliteal artery. IMPRESSION: Prepatellar soft tissue swelling with no acute bony abnormality seen in the right knee. Electronically signed by: Andrew Navarro M.D. 04/04/2017 5:54 PM Dictated Date/Time: 04/04/2017 5:53 PM
--- NOTE | 2017-04-04 17:58 | DIAGNOSTIC IMAGING REPORT ---
THORACIC SPINE 3 VIEWS ROUTINE CLINICAL HISTORY: Back pain following fall. COMPARISON STUDY: Chest CT March 24, 2017. FINDINGS: Alignment of the thoracic spine is anatomic. No acute fracture is identified. There is moderate anterior osteophytosis and multilevel disc space narrowing of the thoracic spine. Median sternotomy wires and mediastinal surgical clips are noted. IMPRESSION: 1. No acute thoracic spine fracture or subluxation identified. 2. Moderate multilevel degenerative disc disease of the thoracic spine. Electronically signed by: Rodriguez Bauer M.D. 04/04/2017 5:57 PM Dictated Date/Time: 04/04/2017 5:53 PM
[2017-04-04 18:29] VITALS: BP 120/81; PULSE 84; O2SAT 100
--- NOTE | 2017-04-04 21:08 | EMERGENCY ROOM VISIT NOTE ---
History Report prepared by Annmarie: Adam Corley Under the Supervision of: Dr. John Dominguez M.D. First contact with patient: 15:56 Chief Complaint: FALL Stated Complaint: FALL, LACERATION TO BOTH KNEES History of Present Illness The patient is a 66 year old female who presents to the Emergency Room with complaints of bilateral knee pain following a fall that occurred today. The patient states that she was shopping today when she tripped over the carpet and fell forward. She notes that she was found face down. She reports that she does not remember tripping and is unsure whether she lost consciousness. 2 bystanders did state that she tripped over the carpet. The patient states that she has cuts on both knees, but notes that her pain is worse on her left knee. She notes that she is unsure whether or not she can put pressure on her knees, as she has not tried walking. She also complains of a constant headache and pain in her left shoulder blade. She reports that she was recently taken off her migraine medication, prompting the headache. The patient states that her shoulder pain has been occurring for a few weeks, and feels like an "ice pick." She states the pain is worse if she moves her trunk or if anyone touches it. She denies any neck pain, chest pain, abdominal pain, and pain on the rest of her legs. She notes that she was seen today for a diabetic ulcer on a toe of her left foot. She reports that she is taking blood thinners. Her last tetanus shot was 2009. She rates her knee pain as a 6/10. Source of History: patient Onset: today Position: knee (bilateral) Symptom Intensity: 6/10 Quality: ache Timing: constant Modifying Factors (Worsening): movement Associated Symptoms: + headache (pressure), + back pain (left-sided for several weeks), No neck pain, No chest pain, No SOB, No abdominal pain Note: She also denies any pain in the rest of her legs. Review of Systems See HPI for pertinent positives & negatives. A total of 10 systems reviewed and were otherwise negative. Past Medical & Surgical Medical Problems: (1) BLANCA (acute kidney injury) (2) Asthma (3) Benign hypertension (4) Dehydration (5) Diabetes mellitus (6) Diabetic foot infection (7) GERD (gastroesophageal reflux disease) (8) Hyperglycemia (9) Hyperlipidemia (10) Hypomagnesemia (11) Influenza A with pneumonia (12) Pneumonia (13) Pneumonia involving right lung (14) UTI (urinary tract infection) Family History No pertinent family history Social History Smoking Status: Former Smoker Alcohol Use: none Drug Use: none Marital Status: single Housing Status: pen[facility] Occupation Status: retired Current/Historical Medications Scheduled Aspirin (Aspirin Dr), 81 MG PO DAILY Carvedilol (Coreg), 6.25 MG PO BIDM Clopidogrel Bisulfate (Clopidogrel), 75 MG PO DAILY Ergocalciferol (Vitamin D 33175 Unit), 50,000 INTER.UNIT PO WK Famotidine (Pepcid), 20 MG PO QPM Hydrochlorothiazide (Hctz), 25 MG PO DAILY Insulin Glargine (Toujeo Solostar), 80 SQ QHS Insulin Lispro (Human) (Humalog Kwikpen), 26 UNITS SQ WM Levothyroxine Sodium (Levothyroxine Sodium), 150 MCG PO QAM Lisinopril (Lisinopril), 2.5 MG PO DAILY Mirtazapine (Remeron), 30 MG PO HS Multiple Vitamins W/ Minerals (Multi For Her 50+), 1 CAP PO DAILY Oxybutynin Chloride (Ditropan), 5 MG PO BID Paroxetine (Paroxetine HCl), 20 MG PO DAILY Pramipexole Dihydrochloride (Pramipexole Dihydrochlori), 0.75 MG PO QPM Pregabalin (Lyrica), 150 MG PO QAM Pregabalin (Lyrica), 300 MG PO HS Spironolactone (Aldactone), 25 MG PO QAM Venlafaxine Hcl (Effexor Extended Rel), 75 MG PO QAM Venlafaxine Hcl (Effexor Extended Rel), 150 MG PO QPM Scheduled PRN Albuterol Sulf (Albuterol Sulfate), 1 VIAL NEB Q4-6HRS PRN for Wheezing Albuterol Sulfate (Proair Respiclick), 2 PUFFS INH Q4-6H PRN for Shortness of Breath Tramadol (Ultram), 50 MG PO Q8 PRN for Pain Allergies Coded Allergies: Clindamycin (Verified Allergy, Severe, RASH, DELUSIONAL, CONVULSIONS, ) Eggs or Egg-derived Products (Verified Allergy, Severe, ANAPHYLAXIS, ) NO FLU VAC. Note: 04/05/12, pt ate eggs for breakfast, dietary requested that pharmacy add egg food allergy. aj Furosemide (Verified Allergy, Severe, ANAPHYLAXIS, 04/04/17) Rosuvastatin (Unverified Allergy, Severe, LEG WEAKNESS, 04/04/17) Simvastatin (Unverified Allergy, Severe, LEG WEAKNESS, 04/04/17) Sulfamethoxazole w/Trimethoprim (Verified Allergy, Intermediate, RASH, 04/04) Amoxicillin (Verified Allergy, Unknown, ., 04/04/17) Atorvastatin (Verified Allergy, Unknown, acute renal failure, 04/04/17) Clavulanic Acid (Verified Allergy, Unknown, ., 04/04/17) Egg (Verified Allergy, Unknown, _, 04/04/17) 04/05/12: ADDED PER DIETARY REQUEST. Latex1 -Allergic Contact Dermititis (Verified Allergy, Unknown, RASH, ) Penicillins (Verified Allergy, Unknown, unknown, 04/04/17) Triamcinolone (Verified Allergy, Unknown, RASH, 04/04/17) Diclofenac (Verified Adverse Reaction, Severe, SKIN SLOTHED FROM HEEL, 04/04) Isopropyl Alcohol (Verified Adverse Reaction, Severe, SKIN SLOTHED FROM HEEL, 04/04/17) Propylene Glycol (Verified Adverse Reaction, Severe, SKIN SLOTHED FROM HEEL, 04/04/17) Acetaminophen (Verified Adverse Reaction, Mild, VOMITING, 04/04/17) Physical Exam Vital Signs Date Time Temp Pulse Resp B/P (MAP) Pulse Ox O2 Delivery O2 Flow Rate FiO2 04/04/17 18:29 84 20 120/81 100 Room Air 04/04/17 15:40 36.9 92 22 136/70 99 Room Air Physical Exam Constitutional: Vital signs reviewed. Eyes: Pupils are equal round reactive to light. Conjunctiva are noninjected. ENT: Pharynx is clear without erythema or exudate. Mucous membranes are moist. Neck supple without meningeal signs. No midline tenderness to cervical spine. Respiratory: Clear to auscultation bilaterally. Breath sounds are equal bilaterally. Cardiovascular: Regular rate and rhythm. No rubs or gallops. GI: Soft, nondistended and nontender. Bowel sounds are present. Musculoskeletal: No midline tenderness to thoracic or lumbosacral spine, point tenderness to rhomboid muscles on left, left knee tenderness diffusely over anterior aspect with skin avulsion measuring 3x1cm. Abrasions to the right anterior knee with mild anterior tenderness, no tenderness proximal or distal to the knees. Integumentary: No cyanosis. Neurological: The patient is awake and alert. Cranial nerves II-XII are intact. Motor is 5 out of 5 all extremities. Sensation is intact to light touch all extremities. Normal speech. No pronator drift. Psychiatric: Normal affect. Medical Decision & Procedures ER Provider Diagnostic Interpretation: Radiology results as stated below per my review and the radiologist's interpretation: RIGHT KNEE 2 VIEWS CLINICAL HISTORY: Fall with right knee pain. FINDINGS: AP and crosstable lateral views of the right knee are obtained. No prior studies are available for comparison at the time of dictation. The skeletal structures are osteopenic. No fracture is seen. There is mild tricompartmental degenerative joint space narrowing. Bony overgrowth is seen at the anterior tibial tuberosity. There is no large joint effusion. Prepatellar soft tissue swelling is noted. Atherosclerotic calcification is present in the popliteal artery. IMPRESSION: Prepatellar soft tissue swelling with no acute bony abnormality seen in the right knee. Electronically signed by: Andrew Navarro M.D. 04/04/2017 5:54 PM L KNEE 1 OR 2 VIEWS ROUTINE CLINICAL HISTORY: Fall. Bilateral knee pain. COMPARISON: Left knee radiographs October 08, 2013. FINDINGS: Alignment of the left knee is anatomic. No acute fracture is identified. Joint spaces are preserved. There is spurring of the superior pole of the patella and the tibial tubercle. There are surgical clips possibly from bypass grafting. There is extensive vascular calcification. Prepatellar soft tissue swelling is present. There may be a small left knee joint effusion. IMPRESSION: 1. No acute fracture. 2. Prepatellar soft tissue swelling. 3. Possible small left knee joint effusion. Electronically signed by: Rodriguez Bauer M.D. 04/04/2017 5:[address] SCAN OF THE BRAIN WITHOUT IV CONTRAST CLINICAL HISTORY: Fall. COMPARISON STUDY: CT of the brain dated 04/09/2012. TECHNIQUE: Unenhanced axial CT scan of the brain is performed from the vertex to the skull base. A dose lowering technique was utilized adhering to the principles of ALARA. CT DOSE: 712.55 mGy.cm FINDINGS: Brain parenchyma: There is minimal periventricular microangiopathic change. There is no hemorrhage, mass effect, or evidence of acute territorial ischemia by CT criteria. 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 Gomes-white matter is preserved. No extra-axial fluid collection is seen. Ventricles, sulci, cisterns: Normal in configuration. Intracranial vasculature: There is advanced atherosclerotic calcification of the cavernous carotid and vertebral arteries. Calvarium: The skeletal structures are osteopenic. The calvarium appears intact. Sinuses and mastoids: There is evidence of previous paranasal sinus surgery. The visualized paranasal sinuses are clear. The mastoid air cells are well pneumatized. Orbits: The bony orbits are grossly intact. There are bilateral ocular lens implants. IMPRESSION: There is no hemorrhage, mass effect, or evidence of acute territorial ischemia by CT criteria. Electronically signed by: Andrew Navarro M.D. 04/04/2017 5:09 PM THORACIC SPINE 3 VIEWS ROUTINE CLINICAL HISTORY: Back pain following fall. COMPARISON STUDY: Chest CT March 24, 2017. FINDINGS: Alignment of the thoracic spine is anatomic. No acute fracture is identified. There is moderate anterior osteophytosis and multilevel disc space narrowing of the thoracic spine. Median sternotomy wires and mediastinal surgical clips are noted. IMPRESSION: 1. No acute thoracic spine fracture or subluxation identified. 2. Moderate multilevel degenerative disc disease of the thoracic spine. Electronically signed by: Rodriguez Bauer M.D. 04/04/2017 5:57 PM ED Course 1601: The patient was evaluated in room C9. A complete history and physical exam was performed. 1809: I reevaluated and updated the patient on her test results. 1829: The patient ambulated. The patient's sister is here to take her home. 1846: Upon reevaluation, the patient appeared to have improvement of her symptoms. I discussed tonight's findings with her. She verbalized agreement of the treatment plan. The patient was discharged home. Medical Decision This is a 66-year-old female who presents with injuries after fall. Differential diagnosis includes contusion, intracranial hemorrhage, skull fracture, concussion, joint effusion, dislocation. I did perform a limited focused review of portions of the patient's old chart on the electronic medical record. The patient was last seen today for a diabetic ulcer on a toe on her left foot. I did evaluate the patient as noted above. The patient had a mechanical fall prior to arrival. She landed on her knees and hit her face on the ground. She thinks t IV access was established. The patient was placed on a continuous awake overnight monitor. I did order and personally review the patient's x-rays as described above. He does have a left knee joint effusion but no fractures or dislocation. I did order a CT of the head. I did review the images myself as well as the radiology report as described above. There is no evidence of acute intracranial injury. I did discuss the test results with the patient. Her wounds were cleaned and dressed. She was able to ambulate and discharged with her sister. Head Trauma GCS Score: 15 Blood Pressure Screening Patient's blood pressure: Normal blood pressure Blood pressure disposition: Did not require urgent referral Impression Primary Impression: Acute head injury Additional Impressions: Fall Contusion of knee, left Contusion of knee, right Effusion, left knee Avulsion injury of left knee region Scribe Attestation The scribe's documentation has been prepared under my direct and personally reviewed by me in its entirety. I confirm that the note above accurately reflects all work, treatment, procedures, and medical decision making performed by me. Departure Information Dispostion Home / Self-Care Referrals RV. Gerard MD (PCP) Forms HOME CARE DOCUMENTATION FORM, IMPORTANT VISIT INFORMATION Patient Instructions My [facility] Additional Instructions You have been examined and treated today on an emergency basis only. This is not a substitute for, or an effort to provide, complete comprehensive medical care. It is impossible to recognize and treat all injuries or illnesses in a single emergency department visit. It is therefore important that you follow up closely with your physician. Call as soon as possible for an appointment. Return for worsening symptoms or if you develop fever, numbness or weakness on one side of your body, difficulties with your speech or walking, or any other concerning symptoms. Problem Qualifiers Primary Impression: Acute head injury Encounter type: initial encounter Qualified Codes: S09.90XA - Unspecified injury of head, initial encounter Additional Impressions: Fall Encounter type: initial encounter Qualified Codes: W19.XXXA - Unspecified fall, initial encounter Contusion of knee, left Encounter type: initial encounter Qualified Codes: S80.02XA - Contusion of left knee, initial encounter Contusion of knee, right Encounter type: initial encounter Qualified Codes: S80.01XA - Contusion of right knee, initial encounter
== END 2017-04-04 18:46 | disposition home or self-care (01) ==
LOC: EDBD 15:38 → C.EDC 15:40
DX: S09.90XA Unspecified injury of head, initial encounter (principal); S80.01XA Contusion of right knee, initial encounter; S80.02XA Contusion of left knee, initial encounter; S81.002A Unspecified open wound, left knee, initial encounter; M25.462 Effusion, left knee; W01.0XXA Fall on same level from slipping, tripping and stumbling without subsequent striking against object, initial encounter; Y92.89 Other specified places as the place of occurrence of the external cause; E11.622 Type 2 diabetes mellitus with other skin ulcer; N17.9 Acute kidney failure, unspecified; J45.909 Unspecified asthma, uncomplicated; I10 Essential (primary) hypertension; K21.9 Gastro-esophageal reflux disease without esophagitis; E78.5 Hyperlipidemia, unspecified; E83.42 Hypomagnesemia; Z87.01 Personal history of pneumonia (recurrent); Z87.440 Personal history of urinary (tract) infections; Z87.891 Personal history of nicotine dependence; Z79.82 Long term (current) use of aspirin; Z79.4 Long term (current) use of insulin; Z79.899 Other long term (current) drug therapy

== ENCOUNTER 2017-04-13 15:04 | Inpatient (IN) | payer OTHER ==
[~2017-04-13] VITALS: Ht 167.6 cm; Wt 113.3 kg
[~2017-04-13 15:04] MED LIST changes: +ALBU18002 INH; -CEPH-571 PO; +INSU100I2 SQ; +LEVO150T9 PO; -NVLGI/PEN SQ; -Proair HFA INH; -ROSU20TA33 PO; -SNK PO; -SYN137 PO
--- NOTE | 2017-04-13 15:50 | DIAGNOSTIC IMAGING REPORT ---
CHEST ONE VIEW PORTABLE CLINICAL HISTORY: Shortness of breath COMPARISON STUDY: 04/12/2016 FINDINGS: There are postsurgical changes of a midline sternotomy. The heart is enlarged. There is diffuse elevation of the interstitium consistent with congestive failure/fluid overload. There is no lobar consolidation. There are no significant pleural effusions.[ IMPRESSION: Cardiomegaly and radiographic evidence of congestive failure/fluid overload. Electronically signed by: Enrique Kumar M.D. 04/13/2017 3:48 PM Dictated Date/Time: 04/13/2017 3:48 PM
[2017-04-13 15:53] LABS: BASO % 0.2 %; BASO ABS # 0.02 K/uL (0-0.2); EOS % 1.4 %; EOS ABS # 0.12 K/uL (0-0.5); HEMATOCRIT 36.5 % (37-47); HEMOGLOBIN 11.3 g/dL (12.0-16.0); IG# 0.02 K/uL (0.00-0.02); LYMPH % 26.7 %; LYMPH ABS # 2.27 K/uL (1.2-3.4); MEAN CELL VOLUME 86.5 fL (80-100); MEAN CORPUSCULAR HEMOGLOBIN 26.8 pg (25-34); MEAN PLATELET VOLUME 10.8 fL (7.4-10.4); MONO % 6.7 %; MONO ABS # 0.57 K/uL (0.11-0.59); NEUT % 64.8 %; NEUT ABS # 5.49 K/uL (1.4-6.5); PLATELET COUNT 252 K/uL (130-400); RED CELL DISTRIBUTION WIDTH CV 15.5 % (11.5-14.5); RED CELL DISTRIBUTION WIDTH SD 48.7 fL (36.4-46.3); WHITE BLOOD COUNT 8.49 K/uL (4.8-10.8)
[2017-04-13] MEDS ORDERED: ETHACRYNIC ACID 25 MG TAB PO ONE (16:00)
[2017-04-13 16:04] LABS: INR 1.2 (0.9-1.1); PTT PATIENT 27.8 SECONDS (21.0-31.0)
[2017-04-13 16:09] LABS: CALCIUM 8.6 mg/dl (8.5-10.1); CREATININE 1.09 mg/dl (0.60-1.20); POTASSIUM 4.3 mmol/L (3.5-5.1)
[2017-04-13] MEDS ORDERED: ALBUTEROL 0.083% NEBU SOLN 3 ML VIAL INH PRN (16:45)
[2017-04-13] MEDS ORDERED: ALBUTEROL HFA 8 GM INHALER INH PRN (16:45)
[2017-04-13] MEDS ORDERED: ETHACRYNATE SOD FOR INJ 50 MG VIAL IV ONE (17:14)
--- NOTE | 2017-04-13 17:22 | EMERGENCY ROOM VISIT NOTE ---
History Report prepared by Annmarie: Joseluis Truong Under the Supervision of: Dr. John Dominguez M.D. First contact with patient: 15:13 Chief Complaint: OTHER COMPLAINT Stated Complaint: FILLING UP WITH FLUIDS - REF BY History of Present Illness The patient is a 66 year old female who presents to the Emergency Room with complaints of worsening generalized fluid retention beginning four weeks ago. She was diagnosed with CHF one month ago. She is on HCTZ and Aldactone. The patient states that she has gained 40 pounds over the past four weeks. She also complains of shortness of breath, and back pain radiating into her chest. Her back pain has been present for "several months". The patient was seen in the ED for fall 9 days ago. She denies any recent falls since her previous visit. Source of History: patient Onset: Four weeks ago Position: other (generalized) Quality: other (fluid retention) Timing: worsening Associated Symptoms: + SOB, + back pain (radiating to chest) Review of Systems See HPI for pertinent positives & negatives. A total of 10 systems reviewed and were otherwise negative. Past Medical & Surgical Medical Problems: (1) BLANCA (acute kidney injury) (2) Asthma (3) Benign hypertension (4) Dehydration (5) Diabetes mellitus (6) Diabetic foot infection (7) GERD (gastroesophageal reflux disease) (8) Hyperglycemia (9) Hyperlipidemia (10) Hypomagnesemia (11) Influenza A with pneumonia (12) Pneumonia (13) Pneumonia involving right lung (14) Systolic congestive heart failure (15) UTI (urinary tract infection) Family History No pertinent family history Social History Smoking Status: Former Smoker Alcohol Use: none Drug Use: none Marital Status: single Housing Status: correction Occupation Status: retired Current/Historical Medications Scheduled Aspirin (Aspirin Dr), 81 MG PO DAILY Carvedilol (Coreg), 6.25 MG PO BIDM Clopidogrel Bisulfate (Clopidogrel), 75 MG PO DAILY Ergocalciferol (Vitamin D 63899 Unit), 50,000 INTER.UNIT PO WK Famotidine (Pepcid), 20 MG PO QPM Hydrochlorothiazide (Hctz), 25 MG PO DAILY Insulin Glargine (Toujeo Solostar), 80 SQ QHS Insulin Lispro (Human) (Humalog Kwikpen), 26 UNITS SQ WM Levothyroxine Sodium (Levothyroxine Sodium), 150 MCG PO QAM Lisinopril (Lisinopril), 2.5 MG PO DAILY Mirtazapine (Remeron), 30 MG PO HS Multiple Vitamins W/ Minerals (Multi For Her 50+), 1 CAP PO DAILY Oxybutynin Chloride (Ditropan), 5 MG PO BID Paroxetine (Paroxetine HCl), 20 MG PO DAILY Pramipexole Dihydrochloride (Pramipexole Dihydrochlori), 0.75 MG PO QPM Pregabalin (Lyrica), 150 MG PO QAM Pregabalin (Lyrica), 300 MG PO HS Spironolactone (Aldactone), 25 MG PO QAM Venlafaxine Hcl (Effexor Extended Rel), 75 MG PO QAM Venlafaxine Hcl (Effexor Extended Rel), 150 MG PO QPM Scheduled PRN Albuterol Sulf (Albuterol Sulfate), 1 VIAL NEB Q4-6HRS PRN for Wheezing Albuterol Sulfate (Proair Respiclick), 2 PUFFS INH Q4-6H PRN for Shortness of Breath Tramadol (Ultram), 50 MG PO Q8 PRN for Pain Allergies Coded Allergies: Clindamycin (Verified Allergy, Severe, RASH, DELUSIONAL, CONVULSIONS, 04/13) Eggs or Egg-derived Products (Verified Allergy, Severe, ANAPHYLAXIS, ) NO FLU VAC. Note: 04/05/12, pt ate eggs for breakfast, dietary requested that pharmacy add egg food allergy. aj Furosemide (Verified Allergy, Severe, ANAPHYLAXIS, 04/13/17) Rosuvastatin (Unverified Allergy, Severe, LEG WEAKNESS, 04/13/17) Simvastatin (Unverified Allergy, Severe, LEG WEAKNESS, 04/13/17) Sulfamethoxazole w/Trimethoprim (Verified Allergy, Intermediate, RASH, ) Amoxicillin (Verified Allergy, Unknown, ., 04/13/17) Atorvastatin (Verified Allergy, Unknown, acute renal failure, 04/13/17) Clavulanic Acid (Verified Allergy, Unknown, ., 04/13/17) Egg (Verified Allergy, Unknown, _, 04/13/17) 04/05/12: ADDED PER DIETARY REQUEST. Latex1 -Allergic Contact Dermititis (Verified Allergy, Unknown, RASH, 04/13) Penicillins (Verified Allergy, Unknown, unknown, 04/13/17) Triamcinolone (Verified Allergy, Unknown, RASH, 04/13/17) Diclofenac (Verified Adverse Reaction, Severe, SKIN SLOTHED FROM HEEL, ) Isopropyl Alcohol (Verified Adverse Reaction, Severe, SKIN SLOTHED FROM HEEL, 04/13/17) Propylene Glycol (Verified Adverse Reaction, Severe, SKIN SLOTHED FROM HEEL, 04/13/17) Acetaminophen (Verified Adverse Reaction, Mild, VOMITING, 04/13/17) Physical Exam Vital Signs Date Time Temp Pulse Resp B/P (MAP) Pulse Ox O2 Delivery O2 Flow Rate FiO2 04/13/17 16:26 97 111/71 97 Room Air 04/13/17 15:07 36.7 99 22 134/77 95 Room Air Physical Exam Constitutional: Vital signs reviewed. Eyes: Pupils are equal round reactive to light. Conjunctiva are noninjected. ENT: Pharynx is clear without erythema or exudate. Mucous membranes are moist. Neck supple without meningeal signs. Respiratory: Bibasilar rales. Breath sounds are equal bilaterally. Cardiovascular: Regular rate and rhythm. No rubs or gallops. GI: Soft, nondistended and nontender. Bowel sounds are present. Musculoskeletal: Bilateral pitting edema in the lower extremities. Integumentary: No cyanosis. Neurological: The patient is awake and alert. No focal deficits. Psychiatric: Normal affect. Medical Decision & Procedures ER Provider Diagnostic Interpretation: Radiology results as stated below per my review and the radiologist's interpretation: CHEST ONE VIEW PORTABLE FINDINGS: There are postsurgical changes of a midline sternotomy. The heart is enlarged. There is diffuse elevation of the interstitium consistent with congestive failure/fluid overload. There is no lobar consolidation. There are no significant pleural effusions.[ IMPRESSION: Cardiomegaly and radiographic evidence of congestive failure/fluid overload. Electronically signed by: Enrique Kumar M.D. 04/13/2017 3:48 PM Laboratory Results 04/13/17 15:40 Red Blood Count 4.22, Mean Corpuscular Volume 86.5, Mean Corpuscular Hemoglobin 26.8, Mean Corpuscular Hemoglobin Concent 31.0, Mean Platelet Volume 10.8, Neutrophils (%) (Auto) 64.8, Lymphocytes (%) (Auto) 26.7, Monocytes (%) (Auto) 6.7, Eosinophils (%) (Auto) 1.4, Basophils (%) (Auto) 0.2, Neutrophils # (Auto) 5.49, Lymphocytes # (Auto) 2.27, Monocytes # (Auto) 0.57, Eosinophils # (Auto) 0.12, Basophils # (Auto) 0.02 04/13/17 15:40 Test 04/13/17 15:40 White Blood Count 8.49 K/uL (4.8-10.8) Red Blood Count 4.22 M/uL (4.2-5.4) Hemoglobin 11.3 g/dL (12.0-16.0) Hematocrit 36.5 % (37-47) Mean Corpuscular Volume 86.5 fL (80-100) Mean Corpuscular Hemoglobin 26.8 pg (25-34) Mean Corpuscular Hemoglobin Concent 31.0 g/dl (32-36) Platelet Count 252 K/uL (130-400) Mean Platelet Volume 10.8 fL (7.4-10.4) Neutrophils (%) (Auto) 64.8 % Lymphocytes (%) (Auto) 26.7 % Monocytes (%) (Auto) 6.7 % Eosinophils (%) (Auto) 1.4 % Basophils (%) (Auto) 0.2 % Neutrophils # (Auto) 5.49 K/uL (1.4-6.5) Lymphocytes # (Auto) 2.27 K/uL (1.2-3.4) Monocytes # (Auto) 0.57 K/uL (0.11-0.59) Eosinophils # (Auto) 0.12 K/uL (0-0.5) Basophils # (Auto) 0.02 K/uL (0-0.2) RDW Standard Deviation 48.7 fL (36.4-46.3) RDW Coefficient of Variation 15.5 % (11.5-14.5) Immature Granulocyte % (Auto) 0.2 % Immature Granulocyte # (Auto) 0.02 K/uL (0.00-0.02) Prothrombin Time 12.2 SECONDS (9.0-12.0) Prothromb Time International Ratio 1.2 (0.9-1.1) Activated Partial Thromboplast Time 27.8 SECONDS (21.0-31.0) Partial Thromboplastin Ratio 1.1 Anion Gap 6.0 mmol/L (3-11) Est Creatinine Clear Calc Drug Dose 70.4 ml/min Estimated GFR () 62.1 Estimated GFR (Non- 53.6 BUN/Creatinine Ratio 31.9 (10-20) Calcium Level 8.6 mg/dl (8.5-10.1) Troponin I 0.056 ng/ml (0-0.045) Pro-B-Type Natriuretic Peptide 73549 pg/ml (0-900) Laboratory results as reviewed by me. Medications Administered Medications (Trade) Dose Ordered Sig/Frieda Route Start Time Stop Time Status Last Admin Dose Admin Ethacrynic Acid (Edecrin Tab) 50 mg ONE ONCE PO 04/13/17 16:00 04/13/17 16:01 DC 04/13/17 16:43 50 MG ECG Indication: SOB/dyspnea Rate (beats per minute): 95 Rhythm: sinus rhythm Findings: PVC, Q waves (lead 3), no acute ischemic change ED Course 1514: The patient was evaluated in room C9. A complete history and physical exam was performed. 1600: Ordered Edecrin Tab 50 mg PO. 1623: Upon reevaluation, the patient is resting comfortably. I discussed tonight 's findings with her. She verbalized agreement of the treatment plan. The patient will be evaluated for further management. Medical Decision This is a 66-year-old female presents with edema and shortness of breath. Differential diagnosis includes CHF exacerbation, pulmonary edema, pleural effusion, anasarca, renal disease. I did perform a limited focused review of portions of the patient's old chart on the electronic medical record. The patient was seen in the ED on Apr 04, 2017 after a fall. I did evaluate the patient as noted above. IV access was established. The patient was placed on a continuous groundwater monitoring technician. I did order and personally review the patient's 12-lead EKG and chest x-ray as described above. Her chest x-ray demonstrates pulmonary edema and congestion. I did order and review the patient's blood work as noted in the electronic medical record. Her BNP is elevated. Troponin is slightly elevated. I did discuss the test results with the patient. I did treat the patient with ethacrynic acid due to her allergy to Lasix. I did discuss the case with the hospitalist and case planner. Medication Reconcilliation Current Medication List: was personally reviewed by me Blood Pressure Screening Patient's blood pressure: Elevated blood pressure Blood pressure disposition: Elevated BP felt to be situational Consults Time Called: 1622 Consulting Physician: Dr. Rutledge [place] [place] Returned Call: [address] Rutledge of [facility] We discussed the patient and her results. The patient will be further evaluated by [facility] Impression Primary Impression: CHF exacerbation Additional Impression: Elevated troponin Scribe Attestation The scribe's documentation has been prepared under my direct and personally reviewed by me in its entirety. I confirm that the note above accurately reflects all work, treatment, procedures, and medical decision making performed by me. Departure Information Dispostion Being Evaluated By Hospitalist Referrals RV. Gerard MD (PCP) Patient Instructions My [facility] Problem Qualifiers Primary Impression: CHF exacerbation Congestive heart failure type: unspecified Qualified Codes: I50.9 - Heart failure, unspecified
--- NOTE | 2017-04-13 17:30 | History and Physical ---
History & Physical Date of Service Apr 13, 2017. History & Physical obs #[id number]
--- NOTE | 2017-04-13 18:16 | HISTORY & PHYSICAL EXAMINATION ---
DATE OF ADMISSION: 04/13/2017 ADMISSION HISTORY AND PHYSICAL CHIEF COMPLAINT: Shortness of breath, dyspnea on exertion and weak legs. HISTORY OF PRESENT ILLNESS: The patient is a very pleasant 66-year-old female who has known longstanding chronic systolic and diastolic CHF. She notes at least over the last month, possibly more than that she has been gaining weight, probably at least 40 pounds with swelling in her legs and chest wall, shortness of breath, shortness of breath with exertion; however, none of it has been too extreme, so she has been trying to take care of herself at home. Finally, today predominantly from the weak legs and dyspnea on exertion, she reached her own personal "enough is enough" factor and came to the ER for further evaluation. She does not have much dyspnea at rest. She notes actually as far back as 3-4 weeks ago during a mammogram that was commented that she had a lot of body wall edema and she has been eating predominantly Israeli food and microwave meals, not really aware of sodium content or how that would affect her fluid retention. On top of all of that because of an anaphylactic type reaction to Lasix, she is on hydrochlorothiazide and spironolactone as her home diuretic regimen. She came to the ER for further evaluation and treatment. REVIEW OF SYSTEMS: Essentially negative for anything except for as above. PAST MEDICAL HISTORY: Includes asthma, chronic back pain, coronary artery disease, chronic systolic and diastolic combined CHF, COPD, depression, type 2 diabetes, dyslipidemia, GERD, hypertension, hypothyroidism, coronary artery disease with an ischemic cardiomyopathy, obstructive sleep apnea; microalbuminuria, likely related to her diabetes; and vitamin D deficiency. HOME MEDICATIONS: Aspirin, Breo, carvedilol, Plavix, Pepcid, Humalog insulin 26 units at each meal plus a sliding scale, hydrochlorothiazide 25 mg daily, Synthroid, lisinopril 2.5 mg daily, Lyrica, mirtazapine, multivitamin, oxybutynin, Paxil, pramipexole, ProAir, Crestor, spironolactone 25 mg daily, Toujeo 70 units at bedtime, tramadol, venlafaxine ER and vitamin D. PAST SURGICAL HISTORY: Includes a ruptured Achilles tendon repair, rotator cuff surgery and a sinus surgery. FAMILY HISTORY: Includes anxiety, congestive heart failure, diabetes, depression, cancer and coronary artery disease. SOCIAL HISTORY: She is a former smoker, no alcohol, lives alone, generally takes care of herself well. ALLERGIES: HER ALLERGY LIST IS EXTENSIVE, THE MOST RELEVANT BEING FACE AND TONGUE SWELLING FROM FUROSEMIDE. SHE IS ALSO LISTED BEING ALLERGIC TO CLINDAMYCIN, EGGS LASIX, ROSUVASTATIN, SIMVASTATIN, BACTRIM, AMOXICILLIN, LIPITOR, CLAVULANIC, LATEX, PENICILLINS; TRIAMCINOLONE, WHICH CAUSES A RASH; DICLOFENAC GEL, ISOPROPYL ALCOHOL, PROPYLENE GLYCOL, AND ACETAMINOPHEN. PHYSICAL EXAMINATION: VITAL SIGNS: Temperature 36.7, pulse 99, respiratory rate 22, blood pressure 134/77, 95% on room air. GENERAL: She is awake, alert, oriented x3, pleasant. Appears dyspneic and yet still very pleasant, jovial, breathing room air, laughing with her family, but does in fact appear to be mildly short of breath and I suspect she is just very tough with coping skills. HEENT: Normocephalic, atraumatic. Mucous membranes are moist. NECK: Difficult to see JVD because of her body habitus. CARDIOVASCULAR: Regular, very distant. No rubs, murmurs or gallops. LUNGS: Show markedly diminished air entry to about the mid lung. I cannot really say that I hear rales, but certainly there is almost no air entry and then she is fairly clear at the upper lung garvey without rales, rhonchi, or wheezes. Good effort. ABDOMEN: Soft, mild to moderately distended with an appearance of body wall edema. No masses or organomegaly. EXTREMITIES: Without cyanosis or clubbing. She has 2-3+ bilateral lower extremity edema without skin breakdown. SKIN: Shows no rashes, no pallor or icterus. NEUROLOGIC: Shows cranial nerves II-XII to be grossly intact. Gross motor and sensory are intact. MUSCULOSKELETAL: Yields no gross lesions. MENTAL STATUS: Shows good recent and remote recall. Normal mood and affect. Good judgment and insight. LABORATORIES AND DIAGNOSTICS: CBC shows a white count of 8.5 with 65% neutrophils, hemoglobin 11.3, and platelets 252. Basic metabolic panel with sodium 141, potassium 4.3, chloride 111, CO2 24, BUN 35, creatinine 1.09, calcium 8.6, glucose 120. Troponin of 0.056. BNP of 10,747. PT of 12.2 with an INR of 1.2, PTT 27.8. Her chest x-ray reviewed by me as well as radiology appears consistent with CHF showing cardiomegaly and pulmonary edema, elevation of the interstitium consistent with congestive failure and fluid overload, no consolidation, no notable effusions. Her EKG does not show any notable acute ischemic changes, a little bit of nonspecific T-wave abnormalities in V5 and V6 to a lesser degree 1 in aVL and lead III. ASSESSMENT AND PLAN: 1. Acute on chronic mixed systolic and diastolic congestive heart failure with massive fluid overload. Interestingly, she does not appear to be as symptomatic with her pulmonary edema as I would think she should, which certainly is a good thing. It appears that her chronic ischemic cardiomyopathy combined with an unwitting but rather excessive sodium intake has lead to her congestive heart failure exacerbation. Certainly, given her mild elevation of troponin (see below), will rule out that this is from a new cardiac event, but it is exceedingly unlikely. I have educated her initially on a sodium restriction and will ask the dietitian to continue this and we will be diuresing her with ethacrynic acid given that is a loop diuretic that seems to be tolerable for her, she has already been given a dose in the Emergency Room and done well and will continue it at 50 mg intravenous b.i.d. switching to p.o. later. I suspect at this point in time p.o. diuretics that aren't able to be dissolved across a lot of fluid would probably be fairly ineffective as with her body wall edema, I suspect she has a lot of gut edema as well. She probably has a rather massive amount of fluid to takeoff, so will be following her initially with the intravenous diuresis to ensure that there are no symptoms of volume depletion or excess fluid shifting, etc. and will follow basic metabolic panel and then I discussed with her that likely she will become stable enough to be able to be discharged with close outpatient followup as the diuresis continues. 2. Coronary artery disease with mild elevation of troponin. I strongly suspect this is demand ischemia related to her congestive heart failure, not a new cardiac event. Will check an echocardiogram as her last one appears to have been about a year ago, but her symptoms, echocardiogram, etc. are much more consistent with an ongoing congestive heart failure process than anything acute. 3. Diabetes. Fingersticks, insulin, supplemental insulin as needed. Her last A1c was 13.1, a little over 3 months ago. We will need to recheck an A1c and obviously a lot of patient education is needed in that respect as well. 4. Deep venous thrombosis prophylaxis, Lovenox. 5. Asthma. Continue her home medications, although right now, the breathing seems to be purely congestive heart failure related. 6. Hypothyroidism. Her last TSH was in August and was 2.77. I doubt there is any acuity to her thyroid disease, but given that if she was markedly hypothyroid that could contribute, will check a TSH during her stay here. 7. Disposition: She will be observed on telemetry under the [facility] hospitalist team. GISEL
[2017-04-13 18:45] VITALS: BP 119/67; PULSE 95; TEMP 36.9; O2SAT 97; BMI 44.1
[2017-04-13 20:00] VITALS: O2SAT 97
[2017-04-13] MEDS ORDERED: IV FLUIDS COMPLETED PRN (20:15)
[2017-04-13] MEDS ORDERED: SODIUM CHLORIDE 0.9% IV SCH (21:00)
[2017-04-13] MEDS ORDERED: [UNRECOGNIZED DRUG - OTHER] IV SCH (21:00)
[2017-04-13] MEDS ORDERED: INSULIN GLARGINE SOLOSTAR 100 UNITS/ML 3 ML PEN SQ SCH (21:00)
[2017-04-13] MEDS ORDERED: PNEUMOCOCCAL ADMINISTRATION CHARGE ONE (21:30)
[2017-04-13] MEDS ORDERED: PNEUMOCOCCAL POLYSACCHARIDES 25 MCG/0.5 ML VIAL/SYR IM. ONE (21:30)
[2017-04-13] MEDS: VENLAFAXINE HCL XR 75 MG CAPXR PO SCH (21:33)
[2017-04-13] MEDS: OXYBUTYNIN CHLORIDE 5 MG TAB PO SCH (21:33)
[2017-04-13] MEDS: CARVEDILOL 6.25 MG TAB PO SCH (21:35)
[2017-04-13] MEDS: VENLAFAXINE HCL XR 150 MG CAPXR PO SCH (21:35)
[2017-04-13] MEDS: FAMOTIDINE 20 MG TAB PO SCH (21:36)
[2017-04-13] MEDS: PRAMIPEXOLE DIHYDROCHLORIDE 0.25MG TAB PO SCH (21:36)
[2017-04-13] MEDS: MIRTAZAPINE TAB 15 MG TAB PO SCH (21:37)
[2017-04-13] MEDS: PREGABALIN 150 MG CAP PO SCH (21:39)
[2017-04-13] MEDS: TRAMADOL HCL 50 MG TAB PO PRN (21:39)
[2017-04-14] VITALS (8 sets, daily range): BP systolic 109–132; BP diastolic 43–99; PULSE 90–104; TEMP 36.6–37; O2SAT 94–100; BMI 44.1
[2017-04-14 06:13] LABS: CALCIUM 8.6 mg/dl (8.5-10.1); CREATININE 1.16 mg/dl (0.60-1.20); POTASSIUM 3.7 mmol/L (3.5-5.1)
[2017-04-14] MEDS: LEVOTHYROXINE 150 MCG TAB PO SCH (06:29)
[2017-04-14 06:34] LABS: HEMOGLOBIN A1C 10.8 % (4.5-5.6)
[2017-04-14] MEDS: ENOXAPARIN 40 MG/0.4 ML SYR SQ SCH (08:10)
[2017-04-14] MEDS: CLOPIDOGREL BISULFATE 75 MG TAB PO SCH (08:10)
[2017-04-14] MEDS: SPIRONOLACTONE 25 MG TAB PO SCH (08:11)
[2017-04-14] MEDS: PAROXETINE 20 MG TAB PO SCH (08:11)
[2017-04-14] MEDS: CEROVITE ADV FORMULA TAB PO SCH (08:11)
[2017-04-14] MEDS: HYDROCHLOROTHIAZIDE 25 MG TAB PO SCH (08:11)
[2017-04-14] MEDS: LISINOPRIL 2.5 MG TAB PO SCH (08:11)
[2017-04-14] MEDS: OXYBUTYNIN CHLORIDE 5 MG TAB PO SCH ×2 (08:12→22:22)
[2017-04-14] MEDS: ASPIRIN 81 MG ECTAB PO SCH (08:12)
[2017-04-14] MEDS: CARVEDILOL 6.25 MG TAB PO SCH ×2 (08:12→17:07)
[2017-04-14] MEDS: VENLAFAXINE HCL XR 75 MG CAPXR PO SCH (08:12)
[2017-04-14] MEDS: PREGABALIN 150 MG CAP PO SCH ×2 (08:15→22:21)
[2017-04-14] MEDS: TRAMADOL HCL 50 MG TAB PO PRN ×2 (08:17→22:21)
[2017-04-14] MEDS: INSULIN ASPART 100 UNITS/ML 3 ML PEN SQ SCH ×3 (08:20→17:11)
[2017-04-14] MEDS: [UNRECOGNIZED DRUG - OTHER] IV SCH ×2 (08:24→17:07)
[2017-04-14] MEDS: SODIUM CHLORIDE 0.9% IV SCH ×2 (08:24→17:07)
[2017-04-14] MEDS ORDERED: PERFLUTREN LIPID MICROSPHERE (DEFINITY) IV ONE (08:25)
[2017-04-14] MEDS ORDERED: DEXTROSE 50% 50 ML SYR IV PRN (08:30)
[2017-04-14] MEDS ORDERED: GLUCAGON FOR INJ 1 MG VIAL SQ PRN (08:30)
[2017-04-14] MEDS ORDERED: GLUCOSE 10 TABS/TUBE PO PRN (08:30)
[2017-04-14] MEDS ORDERED: GLUCOSE 40% GEL 15 GM TUBE PO PRN (08:30)
[2017-04-14] MEDS ORDERED: ETHACRYNATE SOD FOR INJ 50 MG VIAL IV SCH (09:00)
--- NOTE | 2017-04-14 10:20 | ECHOCARDIOGRAM REPORT ---
*NOTICE TO RECEIVING LIBERTARIAN AGENCY This information is strictly Confidential and protected under [place] law. [place] law prohibits you from making any further disclosure of this information unless further disclosure is expressly permitted by the written consent of the person to whom it pertains or is authorized by law. A general authorization for the release of medical or other information is not sufficient for this purpose. Hospital accepts no responsibility if the information is made available to any other person, INCLUDING THE PATIENT. Interpretation Summary * Name: HENRIETTA WATSON Study Date: 04/14/2017 06:35 AM BP: 109/69 mmHg * Patient Location: .2E\S\E207\S\1 HR: 91 * : 1950 (M/d/yyy) Gender: Female Height: 66 in * Age: 66 yrs Ethnicity: [place] Weight: 275 lb * Ordering Physician: Enzo Rutledge * Referring Physician: Royal Mayen * Performed By: Maria Luz [facility] * * Reason For Study: CHF * BSA: 2.3 m2 * -- Conclusions -- * The left ventricle is mildly dilated. * Left ventricular systolic function is moderate to severely reduced. * There is severe global hypokinesis of the left ventricle. * The right ventricular systolic function is reduced as assessed by tricuspid annular plane systolic excursion (TAPSE) (TAPSE <1.6 cm). * The left atrium is moderately dilated. * There is mild mitral regurgitation. * Right ventricular systolic pressure is elevated at 40-50mmHg. * Compared to a study from 03/2016, the LV systolic function is slightly worsse Procedure Details * A complete two-dimensional transthoracic echocardiogram was performed (2D, M-mode, Doppler and color flow Doppler). * A contrast injection of Definity was performed to improve assessment of LV function. * Contrast was injected into an intravenous site in the right arm. * One vial of Definity ultrasound contrast was diluted in normal saline to a total volume of 10 ml. A total of '1' ml of solution was administered during imaging. * Lot # [id number] of Definity utilized for procedure. * Expiration date . * The attending nurse who injected the contrast agent was Tea Kirkpatrick RN. Left Ventricle * The left ventricle is mildly dilated. * There is normal left ventricular wall thickness. * Ejection Fraction = 25-30%. * Left ventricular systolic function is moderate to severely reduced. * There is severe global hypokinesis of the left ventricle. Right Ventricle * The right ventricle is grossly normal size. * The right ventricular systolic function is reduced as assessed by tricuspid annular plane systolic excursion (TAPSE) (TAPSE <1.6 cm). Atria * The left atrium is moderately dilated. * Right atrial size is normal. Mitral Valve * The mitral valve is grossly normal. * There is mild mitral regurgitation. Tricuspid Valve * The tricuspid valve is not well visualized, but is grossly normal. * There is mild tricuspid regurgitation. * Right ventricular systolic pressure is elevated at 40-50mmHg. Aortic Valve * The aortic valve is not well visualized. * No hemodynamically significant valvular aortic stenosis. * There is no significant aortic regurgitation. Great Vessels * The aortic root is normal size. Pericardium/Pleural * There is no pericardial effusion. MMode 2D Measurements and Calculations IVSd 1.1 cm IVSs 1.4 cm LVIDd 5.3 cm LVIDs 4.2 cm LVPWd 1.1 cm LVPWs 1.4 cm IVS/LVPW 1.1 FS 21.8 % EDV(Teich) 138.0 ml ESV(Teich) 77.8 ml EF(Teich) 43.6 % EDV(cubed) 152.7 ml ESV(cubed) 73.2 ml EF(cubed) 52.1 % % IVS thick 18.2 % % LVPW thick 29.9 % LV mass(C)d 233.1 grams LV mass(C)dI 101.8 grams/m\S\2 LV mass(C)s 216.1 grams LV mass(C)sI 94.4 grams/m\S\2 SV(Teich) 60.2 ml SI(Teich) 26.3 ml/m\S\2 SV(cubed) 79.6 ml SI(cubed) 34.7 ml/m\S\2 Ao root diam 3.3 cm Ao root area 8.6 cm\S\2 ACS 1.6 cm LA dimension 4.6 cm asc Aorta Diam 3.4 cm LA/Ao 1.4 EDV(MOD-sp4) 238.4 ml ESV(MOD-sp4) 140.8 ml EF(MOD-sp4) 41.0 % EDV(MOD-sp2) 191.8 ml ESV(MOD-sp2) 78.6 ml EF(MOD-sp2) 59.0 % SV(MOD-sp4) 97.6 ml SI(MOD-sp4) 42.6 ml/m\S\2 SV(MOD-sp2) 113.2 ml SI(MOD-sp2) 49.4 ml/m\S\2 Doppler Measurements and Calculations MV E max paulino 139.4 cm/sec MV P1/2t max paulino 185.9 cm/sec MV P1/2t 66.5 msec MVA(P1/2t) 3.3 cm\S\2 MV dec slope 819.1 cm/sec\S\2 MV dec time 0.27 sec Ao V2 max 164.4 cm/sec Ao max PG 10.8 mmHg Ao max PG (full) 6.0 mmHg LV V1 max PG 4.8 mmHg LV V1 max 109.5 cm/sec PA V2 max 97.3 cm/sec PA max PG 3.8 mmHg TR max paulino 292.2 cm/sec
--- NOTE | 2017-04-14 14:04 | Hospitalist Progress Note ---
Hospitalist Progress Note Date of Service Apr 14, 2017. (Halley Caraballo, PA-C) Subjective Pt evaluation today including: conversation w/ patient, physical exam, chart review, lab review, review of studies, review of inpatient medication list Patient seen and evaluated. No acute events overnight. Tele reviewed which was NSR in 90s with a short burst of atrial tach that spontaneously resolved. Reporting feeling about the same. Denies SOB at rest. Can definitely hold a full conversation without dyspnea. Reports most is with ambulation. States she normally weighs 238 and this was at her PCP in February and currently 270s. She states she feels her swelling is mostly in the abdomen and upper chest/ breast area. Does have pitting edema of b/l legs. Does report non-compliance with a low sodium diet. A1c is improving which expressed to her that she is definitely doing things that are helping with her overall sugars. Does report frequent lows at night. Confirms taking Toujeo 80 units HS. She was dosed with the initial 20% reduced dose last night but resulted in hypoglycemia. Will reduce another 20% for tonights dose as suspect diet in-hospital largely different compared to at home. Constitutional: No fever, No chills Respiratory: + cough (chronic), + dyspnea on exertion, No sputum, No dyspnea at rest Cardiovascular: No chest pain, No orthopnea, No palpitations Abdomen: No pain, No nausea, No vomiting, No diarrhea, No constipation, No GI bleeding Musculoskeletal: + swelling (b/l lower extremities) Female : No dysuria Heme: No abnormal bleeding/bruising (Halley Craaballo, PA-C) Medications Current Inpatient Medications Medications (Trade) Dose Ordered Sig/Frieda Route Start Time Stop Time Status Last Admin Dose Admin Albuterol Sulfate (Ventolin 0.083% 2.5MG/3ML Neb) 2.5 mg QID PRN INH 04/13/17 16:45 05/13/17 16:44 Aspirin (Ecotrin Tab) 81 mg DAILY PO 04/14/17 09:00 05/14/17 08:59 04/14/17 08:12 81 MG Carvedilol (Coreg Tab) 6.25 mg BIDM PO 04/13/17 18:00 05/13/17 17:59 04/14/17 08:12 6.25 MG Clopidogrel Bisulfate (plAVix TAB) 75 mg DAILY PO 04/14/17 09:00 05/14/17 08:59 04/14/17 08:10 75 MG Ergocalciferol (Vitamin D Cap) 50,000 interunit Tu@0900 PO 04/19/17 09:00 05/19/17 08:59 Famotidine (Pepcid Tab) 20 mg QPM PO 04/13/17 21:00 05/13/17 20:59 04/13/17 21:36 20 MG Hydrochlorothiazide (Hydrochlorothiazide Tab) 25 mg DAILY PO 04/14/17 09:00 05/14/17 08:59 04/14/17 08:11 25 MG Insulin Aspart (novoLOG ASPART) AC SQ 04/14/17 07:00 05/14/17 07:59 04/14/17 11:49 13 UNITS Levothyroxine Sodium (Synthroid Tab) 150 mcg DAILYBB PO 04/14/17 06:00 05/14/17 05:59 04/14/17 06:29 150 MCG Lisinopril (Zestril Tab) 2.5 mg DAILY PO 04/14/17 09:00 05/14/17 08:59 04/14/17 08:11 2.5 MG Mirtazapine (Remeron Tab) 30 mg HS PO 04/13/17 21:00 05/13/17 20:59 04/13/17 21:37 30 MG Oxybutynin Chloride (Ditropan Tab) 5 mg BID PO 04/13/17 21:00 05/13/17 20:59 04/14/17 08:12 5 MG Paroxetine HCl (pAXil TAB) 20 mg DAILY PO 04/14/17 09:00 05/14/17 08:59 04/14/17 08:11 20 MG Pregabalin (Lyrica Cap) 150 mg QAM PO 04/14/17 09:00 05/14/17 08:59 04/14/17 08:15 150 MG Pregabalin (Lyrica Cap) 300 mg HS PO 04/13/17 21:00 05/13/17 20:59 04/13/17 21:39 300 MG Spironolactone (Aldactone Tab) 25 mg QAM PO 04/14/17 09:00 2/17/18 08:59 04/14/17 08:11 25 MG Tramadol HCl (Ultram Tab) 50 mg Q8 PRN PO 04/13/17 16:45 05/13/17 16:44 04/14/17 08:17 50 MG Venlafaxine HCl (effeXOR EXTENDED REL CAP) 75 mg QAM PO 04/14/17 09:00 05/14/17 08:59 04/14/17 08:12 75 MG Venlafaxine HCl (effeXOR EXTENDED REL CAP) 150 mg QPM PO 04/13/17 21:00 05/13/17 20:59 04/13/17 21:35 150 MG Albuterol (Ventolin Hfa Inhaler) 2 puffs Q4-6H PRN INH 04/13/17 16:45 05/13/17 16:44 Multivitamins/ Minerals (Multivitamin W/ Minerals Tab) 1 tab DAILY PO 04/14/17 09:00 05/14/17 08:59 04/14/17 08:11 1 TAB Pramipexole Dihydrochloride (miraPEX TAB) 0.75 mg QPM PO 04/13/17 21:00 05/13/17 20:59 04/13/17 21:36 0.75 MG Enoxaparin Sodium (Lovenox Inj) 40 mg QAM SQ 04/14/17 09:00 05/14/17 08:59 04/14/17 08:10 40 MG Miscellaneous (Iv Fluids Completed) 1 ea PRN PRN N/A 04/13/17 20:15 04/13/18 20:14 Ethacrynate Sodium 50 mg/ Sodium Chloride 50 ml @ 150 mls/hr BID17 IV 04/14/17 09:00 05/14/17 08:59 04/14/17 08:24 150 MLS/HR Glucose (Glucose 40% Gel) 15-30 GRAMS 15 GRAMS... UD PRN PO 04/14/17 08:30 05/14/17 08:29 Glucose (Glucose Chew Tab) 4-8 Tablets 4 Tabl... UD PRN PO 04/14/17 08:30 05/14/17 08:29 Dextrose (Dextrose 50% 50ML Syringe) 25-50ML OF 50% DW IV FOR... UD PRN IV 04/14/17 08:30 05/14/17 08:29 Glucagon (Glucagon Inj) 1 mg UD PRN SQ 04/14/17 08:30 05/14/17 08:29 Insulin Glargine (Lantus Solostar Pen) 50 units HS SC 04/14/17 21:00 05/14/17 20:59 (Halley Caraballo PA-C) Objective Vital Signs Date Time Temp Pulse Resp B/P (MAP) Pulse Ox O2 Delivery O2 Flow Rate FiO2 04/14/17 12:20 Room Air 04/14/17 11:22 37.0 90 20 128/99 (109) 98 Room Air 04/14/17 08:10 Room Air 04/14/17 07:59 36.9 102 20 132/71 (91) 94 Room Air 04/14/17 04:08 91 22 109/69 (82) 97 Room Air 04/14/17 04:00 Nasal Cannula 04/14/17 00:01 36.6 96 24 116/80 (92) 96 Room Air 04/14/17 00:00 Nasal Cannula 04/13/17 20:00 97 Room Air 04/13/17 18:45 36.9 95 16 119/67 97 Room Air 04/13/17 18:13 92 27 141/76 93 04/13/17 17:31 127/63 04/13/17 17:30 92 27 93 04/13/17 17:00 91 27 117/87 96 04/13/17 16:26 97 111/71 97 Room Air 04/13/17 15:07 36.7 99 22 134/77 95 Room Air (Halley Caraballo PA-C) Physical Exam General Appearance: WD/WN, no apparent distress, + obese Eyes: sclerae normal ENT: hearing grossly normal Neck: supple, no JVD, trachea midline Respiratory/Chest: no respiratory distress, no accessory muscle use, + pertinent finding (Diffusely diminished with fine crackles at bases) Cardiovascular: regular rate, rhythm, + pertinent finding (distant due to body habitus) Abdomen: normal bowel sounds, non tender, soft Extremities: + swelling (b/l trace to 1+ pitting edema extending up to distal thigh) Neurologic/Psychiatric: alert, oriented x 3 Skin: normal color, warm/dry (Halley Caraballo PA-C) Laboratory Results Last 24 Hours Test 04/13/17 15:40 04/13/17 20:11 04/13/17 21:55 04/14/17 05:14 White Blood Count 8.49 K/uL Red Blood Count 4.22 M/uL Hemoglobin 11.3 g/dL Hematocrit 36.5 % Mean Corpuscular Volume 86.5 fL Mean Corpuscular Hemoglobin 26.8 pg Mean Corpuscular Hemoglobin Concent 31.0 g/dl Platelet Count 252 K/uL Mean Platelet Volume 10.8 fL Neutrophils (%) (Auto) 64.8 % Lymphocytes (%) (Auto) 26.7 % Monocytes (%) (Auto) 6.7 % Eosinophils (%) (Auto) 1.4 % Basophils (%) (Auto) 0.2 % Neutrophils # (Auto) 5.49 K/uL Lymphocytes # (Auto) 2.27 K/uL Monocytes # (Auto) 0.57 K/uL Eosinophils # (Auto) 0.12 K/uL Basophils # (Auto) 0.02 K/uL RDW Standard Deviation 48.7 fL RDW Coefficient of Variation 15.5 % Immature Granulocyte % (Auto) 0.2 % Immature Granulocyte # (Auto) 0.02 K/uL Prothrombin Time 12.2 SECONDS Prothromb Time International Ratio 1.2 Activated Partial Thromboplast Time 27.8 SECONDS Partial Thromboplastin Ratio 1.1 Sodium Level 141 mmol/L Potassium Level 4.3 mmol/L Chloride Level 111 mmol/L Carbon Dioxide Level 24 mmol/L Anion Gap 6.0 mmol/L Blood Urea Nitrogen 35 mg/dl Creatinine 1.09 mg/dl Est Creatinine Clear Calc Drug Dose 70.4 ml/min Estimated GFR () 62.1 Estimated GFR (Non- 53.6 BUN/Creatinine Ratio 31.9 Random Glucose 120 mg/dl Estimated Average Glucose 263 mg/dl Hemoglobin A1c 10.8 % Calcium Level 8.6 mg/dl Troponin I 0.056 ng/ml 0.057 ng/ml Pro-B-Type Natriuretic Peptide 73140 pg/ml Bedside Glucose 145 mg/dl 56 mg/dl Test 04/14/17 05:16 04/14/17 05:17 04/14/17 08:35 04/14/17 11:20 Bedside Glucose 61 mg/dl 128 mg/dl Sodium Level 142 mmol/L Potassium Level 3.7 mmol/L Chloride Level 110 mmol/L Carbon Dioxide Level 27 mmol/L Anion Gap 5.0 mmol/L Blood Urea Nitrogen 34 mg/dl Creatinine 1.16 mg/dl Est Creatinine Clear Calc Drug Dose 65.9 ml/min Estimated GFR () 57.6 Estimated GFR (Non- 49.7 BUN/Creatinine Ratio 29.6 Random Glucose 54 mg/dl Calcium Level 8.6 mg/dl Thyroid Stimulating Hormone (TSH) 3.790 uIu/ml Troponin I 0.051 ng/ml (Halley Caraballo, DARÍOC) Assessment and Plan 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 4 weeks ago) - So far is at a + fluid balance; Troponins mildly elevated but trending down and appear to be demand ischemia - Echo - EF 25-30%; severe global hypokinessis; reduced R venticular systolic function; R systolic pressures 40-50 mmHg - Ethacrynate 50 mg IV BID - due to anaphylactic reaction with Lasix - Spironolactone 25 mg daily - ASA 81 mg daily, Plavix 75 mg daily, Coreg 6.25 mg BID, HCTZ 25 mg daily - Consult cardiology - appreciate recommendations TARIQ: - Likely multifactorial between her cardiomyopathy, Obesity, and pulmonary HTN - Currently on RA but likely need two-step prior to D/C T2DM with Hypoglycemia: - A1c showing improvement from 13 to 10 - did have hypoglycemia likely due to limited intake during ED stay - Was given reduced dose due to Toujeo/Lantus conversion but will reduce by 20% from that dose tonight to reduce hypoglycemia - reports she frequently gets low sugars at night Asthma: - Albuterol QID PRN DVT Prophylaxis: Lovenox 40 mg SC daily Disposition: - PT/OT evaluations Continued [facility] stay due to: multiple IV medications needed (Halley Caraballo, PAJassiC) PA Physician Supervision Note: I interviewed and examined the patient. Discussed with Halley Caraballo PAC and agree with findings and plan as documented in the note. Any exceptions or clarifications are listed here: None This patient arrives with acute on chronic systolic and diastolic heart failure with massive weight gain likely from dietary indiscretion. She has a history of ischemic cardiomyopathy and diabetes which is been noncompliant with a A1c of 13.1 she been feeling short of breath and feeling increased body girth with weight gain. Her vitals are stable currently and she is not requiring supplemental oxygen Cardiac exam is distant but regular lungs are with crackles at the bases poor air movement extremities are with a mesh on her left knee from previous fall next Acute on chronic systolic diastolic heart failure we'll continue intravenous diuresis cardiology oversight Noncompliant diabetes we'll continue basal bolus insulin therapy History of asthma she is no significant respiratory distress at this time Documented By: John Montiel (John Montiel M.D.)
--- NOTE | 2017-04-14 14:07 | Cardiology Consultation ---
Cardiology Consultation Date of Consultation: Apr 14, 2017. Requesting Physician: Aamir Reason for Consultation: CHF Pt evaluation today including: conversation w/ patient, physical exam, chart review, lab review, review of studies, review of inpatient medication list, conversation w/ attending History of Present Illness The patient is a 66-year-old woman with an extensive history of cardiac disease including both coronary artery disease and congestive heart failure who was admitted to [facility] with evidence of decompensated systolic heart failure. Patient states that for several months she has been having progressive shortness of breath. She generally has an element of breathing difficulty at baseline this became worse over several months and more acutely worse over the past few weeks. She apparently was seen in the outpatient setting a prescribed a double dose of her thiazide diuretic. This did result in some weight loss produce symptoms were progressive and she was eventually admitted for more intensive treatment. Patient states that she has significant dyspnea with minor activities at this point such as ambulating around her room or going to the bathroom. At rest she feels fairly comfortable. She does describe an element of orthopnea and feeling of smothering with lying flat. She has not report overt paroxysmal nocturnal dyspnea. She has noticed some swelling and weight gain as well. She was surprised to learn that she gained almost 30 lb recently when she was measured in the outpatient setting. She denies any symptoms of chest discomfort. Once again she is minimally ambulatory but has no exertional chest pains. She has been revascularized in the past and did not report chest pains leading up to any revascularization. She denies any sense of palpitations. She has not had any recent lightheadedness with the exception of that associated with standing quickly. She denies any recent syncope although she did have a fall at [facility] and it is unclear whether there was an element of syncope in that setting. According to bystanders she tripped on a rug. She did suffer a minor injury to her left knee. At the time of this interview the patient claims to be feeling better. She states that her swelling is improved and she cannot bend her right knee. She has no breathing difficulty at rest in her breathing overall has improved. Past Medical/Surgical History Coronary artery disease Ischemic cardiomyopathy Peripheral vascular disease including carotid artery and left anterior tibial disease. 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 Performed at [facility] Rotator cuff surgery Sinus surgery Debridement left heel abscess Family History No pertinent family history Noncontributory Social History Smoking Status: Former Smoker History of Alcohol Use: No Currently on disability. 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 Currently lives alone Review of Systems Respiratory: + cough, + sputum Per HPI. Patient also reports some loose stools recently. Previously she has constipation but now she has more loose stools All Other Systems: Reviewed and Negative Allergies Coded Allergies: Clindamycin (Verified Allergy, Severe, RASH, DELUSIONAL, CONVULSIONS, 04/13) Eggs or Egg-derived Products (Verified Allergy, Severe, ANAPHYLAXIS, ) NO FLU VAC. Note: 04/05/12, pt ate eggs for breakfast, dietary requested that pharmacy add egg food allergy. aj Furosemide (Verified Allergy, Severe, ANAPHYLAXIS, 04/13/17) Rosuvastatin (Unverified Allergy, Severe, LEG WEAKNESS, 04/13/17) Simvastatin (Unverified Allergy, Severe, LEG WEAKNESS, 04/13/17) Sulfamethoxazole w/Trimethoprim (Verified Allergy, Intermediate, RASH, ) Amoxicillin (Verified Allergy, Unknown, ., 04/13/17) Atorvastatin (Verified Allergy, Unknown, acute renal failure, 04/13/17) Clavulanic Acid (Verified Allergy, Unknown, ., 04/13/17) Egg (Verified Allergy, Unknown, _, 04/13/17) 04/05/12: ADDED PER DIETARY REQUEST. Latex1 -Allergic Contact Dermititis (Verified Allergy, Unknown, RASH, 04/13) Penicillins (Verified Allergy, Unknown, unknown, 04/13/17) Triamcinolone (Verified Allergy, Unknown, RASH, 04/13/17) Diclofenac (Verified Adverse Reaction, Severe, SKIN SLOTHED FROM HEEL, ) Isopropyl Alcohol (Verified Adverse Reaction, Severe, SKIN SLOTHED FROM HEEL, 04/13/17) Propylene Glycol (Verified Adverse Reaction, Severe, SKIN SLOTHED FROM HEEL, 04/13/17) Acetaminophen (Verified Adverse Reaction, Mild, VOMITING, 04/13/17) Medications Current Inpatient Medications Medications (Trade) Dose Ordered Sig/Frieda Route Start Time Stop Time Status Last Admin Dose Admin Albuterol Sulfate (Ventolin 0.083% 2.5MG/3ML Neb) 2.5 mg QID PRN INH 04/13/17 16:45 05/13/17 16:44 Aspirin (Ecotrin Tab) 81 mg DAILY PO 04/14/17 09:00 05/14/17 08:59 04/14/17 08:12 81 MG Carvedilol (Coreg Tab) 6.25 mg BIDM PO 04/13/17 18:00 05/13/17 17:59 04/14/17 08:12 6.25 MG Clopidogrel Bisulfate (plAVix TAB) 75 mg DAILY PO 04/14/17 09:00 05/14/17 08:59 04/14/17 08:10 75 MG Ergocalciferol (Vitamin D Cap) 50,000 interunit Tu@0900 PO 04/19/17 09:00 05/19/17 08:59 Famotidine (Pepcid Tab) 20 mg QPM PO 04/13/17 21:00 05/13/17 20:59 04/13/17 21:36 20 MG Hydrochlorothiazide (Hydrochlorothiazide Tab) 25 mg DAILY PO 04/14/17 09:00 05/14/17 08:59 04/14/17 08:11 25 MG Insulin Aspart (novoLOG ASPART) AC SQ 04/14/17 07:00 05/14/17 07:59 04/14/17 11:49 13 UNITS Levothyroxine Sodium (Synthroid Tab) 150 mcg DAILYBB PO 04/14/17 06:00 05/14/17 05:59 04/14/17 06:29 150 MCG Lisinopril (Zestril Tab) 2.5 mg DAILY PO 04/14/17 09:00 05/14/17 08:59 04/14/17 08:11 2.5 MG Mirtazapine (Remeron Tab) 30 mg HS PO 04/13/17 21:00 05/13/17 20:59 04/13/17 21:37 30 MG Oxybutynin Chloride (Ditropan Tab) 5 mg BID PO 04/13/17 21:00 05/13/17 20:59 04/14/17 08:12 5 MG Paroxetine HCl (pAXil TAB) 20 mg DAILY PO 04/14/17 09:00 05/14/17 08:59 04/14/17 08:11 20 MG Pregabalin (Lyrica Cap) 150 mg QAM PO 04/14/17 09:00 05/14/17 08:59 04/14/17 08:15 150 MG Pregabalin (Lyrica Cap) 300 mg HS PO 04/13/17 21:00 05/13/17 20:59 04/13/17 21:39 300 MG Spironolactone (Aldactone Tab) 25 mg QAM PO 04/14/17 09:00 05/14/17 08:59 04/14/17 08:11 25 MG Tramadol HCl (Ultram Tab) 50 mg Q8 PRN PO 04/13/17 16:45 05/13/17 16:44 04/14/17 08:17 50 MG Venlafaxine HCl (effeXOR EXTENDED REL CAP) 75 mg QAM PO 04/14/17 09:00 05/14/17 08:59 04/14/17 08:12 75 MG Venlafaxine HCl (effeXOR EXTENDED REL CAP) 150 mg QPM PO 04/13/17 21:00 05/13/17 20:59 04/13/17 21:35 150 MG Albuterol (Ventolin Hfa Inhaler) 2 puffs Q4-6H PRN INH 04/13/17 16:45 05/13/17 16:44 Multivitamins/ Minerals (Multivitamin W/ Minerals Tab) 1 tab DAILY PO 04/14/17 09:00 05/14/17 08:59 04/14/17 08:11 1 TAB Pramipexole Dihydrochloride (miraPEX TAB) 0.75 mg QPM PO 04/13/17 21:00 05/13/17 20:59 04/13/17 21:36 0.75 MG Enoxaparin Sodium (Lovenox Inj) 40 mg QAM SQ 04/14/17 09:00 05/14/17 08:59 04/14/17 08:10 40 MG Miscellaneous (Iv Fluids Completed) 1 ea PRN PRN N/A 04/13/17 20:15 04/13/18 20:14 Ethacrynate Sodium 50 mg/ Sodium Chloride 50 ml @ 150 mls/hr BID17 IV 04/14/17 09:00 05/14/17 08:59 04/14/17 08:24 150 MLS/HR Glucose (Glucose 40% Gel) 15-30 GRAMS 15 GRAMS... UD PRN PO 04/14/17 08:30 05/14/17 08:29 Glucose (Glucose Chew Tab) 4-8 Tablets 4 Tabl... UD PRN PO 04/14/17 08:30 05/14/17 08:29 Dextrose (Dextrose 50% 50ML Syringe) 25-50ML OF 50% DW IV FOR... UD PRN IV 04/14/17 08:30 05/14/17 08:29 Glucagon (Glucagon Inj) 1 mg UD PRN SQ 04/14/17 08:30 05/14/17 08:29 Insulin Glargine (Lantus Solostar Pen) 50 units HS SC 04/14/17 21:00 05/14/17 20:59 Physical Exam Vital Signs Past 12 Hours Date Time Temp Pulse Resp B/P (MAP) Pulse Ox O2 Delivery O2 Flow Rate FiO2 04/14/17 12:20 Room Air 04/14/17 11:22 37.0 90 20 128/99 (109) 98 Room Air 04/14/17 08:10 Room Air 04/14/17 07:59 36.9 102 20 132/71 (91) 94 Room Air 04/14/17 04:08 91 22 109/69 (82) 97 Room Air 04/14/17 04:00 Nasal Cannula She is alert and oriented x3. Mood affect appear normal. She answered all questions appropriately. HEENT: Sclerae are anicteric. Pupils are equal and reactive to light and accommodation. Extraocular movements were intact. Neuro: Cranial nerves intact Neck: Examination of the submandibular region did not reveal any significant lymphadenopathy. Carotids are palpable bilaterally and free of bruits on auscultation. There was no evidence of jugular venous distention although the neck tissues were redundant. The thyroid was not enlarged. Lungs: She has bibasilar rales through at least the mid lung field She has normal respiratory effort without use of accessory muscles. There is normal pulmonary excursion. Cardiac: The rhythm was regular. S1 and S2 were normal. There are no murmurs on examination. The PMI was not markedly displaced on palpation. Abdomen: The abdomen was soft and nontender. Extremities: Patient has bilateral radial pulses that are equal in intensity. There is no evidence cyanosis or clubbing. She has significant peripheral edema at least to the mid thigh bilaterally. Skin: There are no rashes noted on examination today. She has multiple abrasions on her lower extremities Data Laboratory Results: Last 24 Hours Test 04/13/17 15:40 04/13/17 20:11 04/13/17 21:55 04/14/17 05:14 White Blood Count 8.49 K/uL Red Blood Count 4.22 M/uL Hemoglobin 11.3 g/dL Hematocrit 36.5 % Mean Corpuscular Volume 86.5 fL Mean Corpuscular Hemoglobin 26.8 pg Mean Corpuscular Hemoglobin Concent 31.0 g/dl Platelet Count 252 K/uL Mean Platelet Volume 10.8 fL Neutrophils (%) (Auto) 64.8 % Lymphocytes (%) (Auto) 26.7 % Monocytes (%) (Auto) 6.7 % Eosinophils (%) (Auto) 1.4 % Basophils (%) (Auto) 0.2 % Neutrophils # (Auto) 5.49 K/uL Lymphocytes # (Auto) 2.27 K/uL Monocytes # (Auto) 0.57 K/uL Eosinophils # (Auto) 0.12 K/uL Basophils # (Auto) 0.02 K/uL RDW Standard Deviation 48.7 fL RDW Coefficient of Variation 15.5 % Immature Granulocyte % (Auto) 0.2 % Immature Granulocyte # (Auto) 0.02 K/uL Prothrombin Time 12.2 SECONDS Prothromb Time International Ratio 1.2 Activated Partial Thromboplast Time 27.8 SECONDS Partial Thromboplastin Ratio 1.1 Sodium Level 141 mmol/L Potassium Level 4.3 mmol/L Chloride Level 111 mmol/L Carbon Dioxide Level 24 mmol/L Anion Gap 6.0 mmol/L Blood Urea Nitrogen 35 mg/dl Creatinine 1.09 mg/dl Est Creatinine Clear Calc Drug Dose 70.4 ml/min Estimated GFR () 62.1 Estimated GFR (Non- 53.6 BUN/Creatinine Ratio 31.9 Random Glucose 120 mg/dl Estimated Average Glucose 263 mg/dl Hemoglobin A1c 10.8 % Calcium Level 8.6 mg/dl Troponin I 0.056 ng/ml 0.057 ng/ml Pro-B-Type Natriuretic Peptide 00454 pg/ml Bedside Glucose 145 mg/dl 56 mg/dl Test 04/14/17 05:16 04/14/17 05:17 04/14/17 08:35 04/14/17 11:20 Bedside Glucose 61 mg/dl 128 mg/dl Sodium Level 142 mmol/L Potassium Level 3.7 mmol/L Chloride Level 110 mmol/L Carbon Dioxide Level 27 mmol/L Anion Gap 5.0 mmol/L Blood Urea Nitrogen 34 mg/dl Creatinine 1.16 mg/dl Est Creatinine Clear Calc Drug Dose 65.9 ml/min Estimated GFR () 57.6 Estimated GFR (Non- 49.7 BUN/Creatinine Ratio 29.6 Random Glucose 54 mg/dl Calcium Level 8.6 mg/dl Thyroid Stimulating Hormone (TSH) 3.790 uIu/ml Troponin I 0.051 ng/ml Imaging: Chest x-ray demonstrated evidence of pulmonary vascular congestion and cardiomegaly EKG: Normal sinus rhythm with evidence of old anterior myocardial infarction Telemetry reviewed: Normal sinus rhythm sinus tachycardia. No other arrhythmias Echocardiogram performed today revealed significantly reduced LV systolic function. Assessment & Plan 1. Acute decompensated systolic heart failure: Patient's symptoms and examination are consistent with pulmonary vascular congestion. She has gained nearly 40 lb. She has significant peripheral edema as well as an exam consistent with pulmonary edema. Much of this is likely related to dietary indiscretion any high sodium diet. He has also had a disadvantage with respect to her medical therapy as she has previously had an anaphylactic reaction to loop diuretics. The 1st concern involves eliminating edema. She has been started on at the chronic acid with good effect. I think this diuretic therapy needs to be continued for few more days in order to affect an adequate diuresis as she is quite volume overloaded. We will need to monitor her electrolytes and renal function closely. She can be continued on her thiazide diuretic as well as this will likely add additional efficacy to her loop diuretic. 2. Ischemic cardiomyopathy: Patient's echocardiogram is consistent with old images. She has severely reduced LV systolic function. She is on Yair inhibition, aldosterone antagonist and beta blockade as an outpatient. She may benefit from low-dose I think chronic acid as an outpatient as well. Her degree of LV dysfunction puts her in a category of patients who may benefit from a prophylactic ICD. Unfortunately, she has acutely decompensated it is unclear whether her LV function will improve once her volume status is better. She can certainly be reassessed in the outpatient setting and a decision made regarding the need for prophylactic ICD at that time. 3. Coronary artery disease: Patient had a fairly recent coronary bypass graft. Do not think there is any concern about cardiac ischemia at this point. She has mildly elevated cardiac biomarkers which are entirely consistent with her decompensated heart failure and less likely related to an acute coronary syndrome. She has had no symptoms of coronary disease in her decompensation is fairly longstanding and not acute. Currently she is on dual anti-platelet therapy and high-dose rosuvastatin. 4. Dyspnea: The majority of her dyspnea is likely related to pulmonary vascular congestion. He claims to have had recent pulmonary function testing. She is believed to have an element of asthma and COPD. I think with selective diuresis we will see some notable improvement in her overall breathing.
[2017-04-14] MEDS ORDERED: INSULIN GLARGINE SOLOSTAR 100 UNITS/ML 3 ML PEN SC SCH ×2 (21:00)
[2017-04-14] MEDS: MIRTAZAPINE TAB 15 MG TAB PO SCH (22:21)
[2017-04-14] MEDS: FAMOTIDINE 20 MG TAB PO SCH (22:22)
[2017-04-14] MEDS: VENLAFAXINE HCL XR 150 MG CAPXR PO SCH (22:22)
[2017-04-14] MEDS: PRAMIPEXOLE DIHYDROCHLORIDE 0.25MG TAB PO SCH (22:22)
[2017-04-15 03:56] VITALS: BP 148/63; PULSE 89; TEMP 36.8; O2SAT 92
[2017-04-15] MEDS: LEVOTHYROXINE 150 MCG TAB PO SCH (06:18)
[2017-04-15 07:34] LABS: HEMATOCRIT 36.5 % (37-47); HEMOGLOBIN 11.5 g/dL (12.0-16.0); MEAN CELL VOLUME 86.3 fL (80-100); MEAN CORPUSCULAR HEMOGLOBIN 27.2 pg (25-34); MEAN CORPUSCULAR HGB CONC 31.5 g/dl (32-36); MEAN PLATELET VOLUME 10.7 fL (7.4-10.4); PLATELET COUNT 244 K/uL (130-400); RED CELL DISTRIBUTION WIDTH CV 15.6 % (11.5-14.5); RED CELL DISTRIBUTION WIDTH SD 48.8 fL (36.4-46.3); WHITE BLOOD COUNT 8.35 K/uL (4.8-10.8)
[2017-04-15 07:47] VITALS: BP 142/96; PULSE 89; TEMP 36.9; O2SAT 94
[2017-04-15 08:04] LABS: CREATININE 1.33 mg/dl (0.60-1.20)
[2017-04-15] MEDS: INSULIN ASPART 100 UNITS/ML 3 ML PEN SQ SCH ×3 (08:04→17:12)
[2017-04-15] MEDS: CARVEDILOL 6.25 MG TAB PO SCH ×2 (08:05→16:45)
[2017-04-15] MEDS: SPIRONOLACTONE 25 MG TAB PO SCH ×2 (08:07→21:03)
[2017-04-15] MEDS: ASPIRIN 81 MG ECTAB PO SCH (08:08)
[2017-04-15] MEDS: CLOPIDOGREL BISULFATE 75 MG TAB PO SCH (08:08)
[2017-04-15] MEDS: OXYBUTYNIN CHLORIDE 5 MG TAB PO SCH ×2 (08:08→21:03)
[2017-04-15] MEDS: VENLAFAXINE HCL XR 75 MG CAPXR PO SCH (08:09)
[2017-04-15] MEDS: HYDROCHLOROTHIAZIDE 25 MG TAB PO SCH (08:09)
[2017-04-15] MEDS: PAROXETINE 20 MG TAB PO SCH (08:10)
[2017-04-15] MEDS: LISINOPRIL 2.5 MG TAB PO SCH (08:10)
[2017-04-15] MEDS: CEROVITE ADV FORMULA TAB PO SCH (08:10)
[2017-04-15] MEDS: ENOXAPARIN 40 MG/0.4 ML SYR SQ SCH (08:11)
[2017-04-15] MEDS: PREGABALIN 150 MG CAP PO SCH ×2 (08:13→21:32)
[2017-04-15] MEDS: TRAMADOL HCL 50 MG TAB PO PRN (08:14)
[2017-04-15] MEDS: SODIUM CHLORIDE 0.9% IV SCH (10:01)
[2017-04-15] MEDS: [UNRECOGNIZED DRUG - OTHER] IV SCH (10:01)
--- NOTE | 2017-04-15 11:20 | Cardiology Follow-Up ---
Subjective Date of Service: Apr 15, 2017. Pt evaluation today including: conversation w/ patient, physical exam, chart review, lab review, review of studies, review of inpatient medication list History of Present Illness This morning the patient claims to be feeling better. She states at rest she is quite comfortable but with ambulation or exertion she still has an element of dyspnea. She is quite happy that she can now see her ankles and knee. She appears to be eating well. She denies significant orthopnea but did sleep on her side. She has not had dizziness or lightheadedness. Social History Smoking Status: Former Smoker History of Alcohol Use: No Review of Systems Respiratory: + cough, + sputum Cardiac: No chest pain, No orthopnea, No palpitations Per HPI. Patient also reports some loose stools recently. Previously she has constipation but now she has more loose stools Objective Vital Signs Past 12 Hours Date Time Temp Pulse Resp B/P (MAP) Pulse Ox O2 Delivery O2 Flow Rate FiO2 04/15/17 07:47 36.9 89 16 142/96 (111) 94 04/15/17 04:00 Room Air 04/15/17 03:56 36.8 89 18 148/63 (91) 92 Room Air 04/15/17 00:00 Room Air 04/14/17 23:43 37.0 90 23 130/75 (93) 95 Room Air Last Recorded Weight-Kilograms: 123.000 Physical Exam She is alert and oriented x3. Mood affect appear normal. She answered all questions appropriately. HEENT: Sclerae are anicteric. Pupils are equal and reactive to light and accommodation. Extraocular movements were intact. Neuro: Cranial nerves intact Neck: Examination of the submandibular region did not reveal any significant lymphadenopathy. Carotids are palpable bilaterally and free of bruits on auscultation. There was no evidence of jugular venous distention although the neck tissues were redundant. The thyroid was not enlarged. Lungs: Rales are much improved versus yesterday. She has normal respiratory effort without use of accessory muscles. There is normal pulmonary excursion. Cardiac: The rhythm was regular. S1 and S2 were normal. There are no murmurs on examination. The PMI was not markedly displaced on palpation. Abdomen: The abdomen was soft and nontender. Extremities: Patient has bilateral radial pulses that are equal in intensity. There is no evidence cyanosis or clubbing. She has significant peripheral edema at least to the mid thigh bilaterally. Skin: There are no rashes noted on examination today. She has multiple abrasions on her lower extremities Data Laboratory Results: Last 24 Hours Test 04/14/17 11:20 04/14/17 15:59 04/14/17 16:00 04/14/17 21:13 Bedside Glucose 128 mg/dl 69 mg/dl 82 mg/dl 104 mg/dl Test 04/15/17 06:54 04/15/17 07:22 Bedside Glucose 95 mg/dl White Blood Count 8.35 K/uL Red Blood Count 4.23 M/uL Hemoglobin 11.5 g/dL Hematocrit 36.5 % Mean Corpuscular Volume 86.3 fL Mean Corpuscular Hemoglobin 27.2 pg Mean Corpuscular Hemoglobin Concent 31.5 g/dl RDW Standard Deviation 48.8 fL RDW Coefficient of Variation 15.6 % Platelet Count 244 K/uL Mean Platelet Volume 10.7 fL Sodium Level 142 mmol/L Potassium Level 4.0 mmol/L Chloride Level 106 mmol/L Carbon Dioxide Level 26 mmol/L Anion Gap 9.0 mmol/L Blood Urea Nitrogen 43 mg/dl Creatinine 1.33 mg/dl Est Creatinine Clear Calc Drug Dose 57.2 ml/min Estimated GFR () 48.8 Estimated GFR (Non- 42.1 BUN/Creatinine Ratio 32.5 Random Glucose 85 mg/dl Calcium Level 9.0 mg/dl Magnesium Level 1.3 mg/dl Troponin I 0.082 ng/ml Telemetry reviewed: Sinus rhythm Assessment and Plan 1. Acute decompensated systolic heart failure: She seems to be clinically improved. Her exam is also improved. She appears to have had an effective diuresis with the at the chronic acid. I think I will continue at the current dose. She is not affecting a reasonable diuresis on at the chronic acid alone administration of her hydrochlorothiazide before the morning dose would likely produce a significant improvement. Her renal function worsened slightly but I still think she is volume overloaded. We can continue to watch her electrolytes and renal function as she loses more volume. 2. Ischemic cardiomyopathy: Severely reduced LV systolic function. 3. Coronary artery disease: No evidence of an acute coronary syndrome. Continue aggressive secondary prevention 4. Dyspnea: Improved
[2017-04-15 11:48] VITALS: BP 99/76; PULSE 88; TEMP 36.5; O2SAT 94
[2017-04-15] MEDS ORDERED: MAGNESIUM OXIDE 400 MG TAB PO ONE (13:00)
[2017-04-15 14:04] VITALS: Ht 167.6 cm; Wt 113.3 kg
--- NOTE | 2017-04-15 14:56 | Hospitalist Progress Note ---
Hospitalist Progress Note Date of Service Apr 15, 2017. (Halley Caraballo, PAJassiC) Subjective Pt evaluation today including: conversation w/ patient, physical exam, chart review, lab review, review of studies, review of inpatient medication list Patient seen and evaluated. No acute events overnight. Tele reviewed and has remained sinus rhythm. Currently at 2 L negative balance. Will convert to orals and continue current dosing. Will assess cost with her insurance/pharmacy as she may need this on D/C Was laying flat in bed without orthopnea but still with TARIQ. feels her chest and abdomen appears to be reducing but her legs still are swollen. Will increase her Spironolactone as well as she is only on 25 mg daily. Constitutional: No fever, No chills Respiratory: + dyspnea on exertion, No cough, No dyspnea at rest Cardiovascular: No chest pain Abdomen: No pain, No nausea, No vomiting, No diarrhea, No constipation Musculoskeletal: + swelling (b/l lower extremities and abdomen/chest), No calf pain Female : No dysuria Heme: No abnormal bleeding/bruising (Halley Caraballo, DARÍOC) Medications Current Inpatient Medications Medications (Trade) Dose Ordered Sig/Frieda Route Start Time Stop Time Status Last Admin Dose Admin Albuterol Sulfate (Ventolin 0.083% 2.5MG/3ML Neb) 2.5 mg QID PRN INH 04/13/17 16:45 05/13/17 16:44 Aspirin (Ecotrin Tab) 81 mg DAILY PO 04/14/17 09:00 05/14/17 08:59 04/15/17 08:08 81 MG Carvedilol (Coreg Tab) 6.25 mg BIDM PO 04/13/17 18:00 05/13/17 17:59 04/15/17 08:05 6.25 MG Clopidogrel Bisulfate (plAVix TAB) 75 mg DAILY PO 04/14/17 09:00 05/14/17 08:59 04/15/17 08:08 75 MG Ergocalciferol (Vitamin D Cap) 50,000 interunit Tu@0900 PO 04/19/17 09:00 05/19/17 08:59 Famotidine (Pepcid Tab) 20 mg QPM PO 04/13/17 21:00 05/13/17 20:59 04/14/17 22:22 20 MG Hydrochlorothiazide (Hydrochlorothiazide Tab) 25 mg DAILY PO 04/14/17 09:00 05/14/17 08:59 Future Hold 04/15/17 08:09 25 MG Insulin Aspart (novoLOG ASPART) AC SQ 04/14/17 07:00 05/14/17 07:59 04/15/17 08:04 12 UNITS Levothyroxine Sodium (Synthroid Tab) 150 mcg DAILYBB PO 04/14/17 06:00 05/14/17 05:59 04/15/17 06:18 150 MCG Lisinopril (Zestril Tab) 2.5 mg DAILY PO 04/14/17 09:00 05/14/17 08:59 Future Hold 04/15/17 08:10 2.5 MG Mirtazapine (Remeron Tab) 30 mg HS PO 04/13/17 21:00 05/13/17 20:59 04/14/17 22:21 30 MG Oxybutynin Chloride (Ditropan Tab) 5 mg BID PO 04/13/17 21:00 05/13/17 20:59 04/15/17 08:08 5 MG Paroxetine HCl (pAXil TAB) 20 mg DAILY PO 04/14/17 09:00 05/14/17 08:59 04/15/17 08:10 20 MG Pregabalin (Lyrica Cap) 150 mg QAM PO 04/14/17 09:00 05/14/17 08:59 04/15/17 08:13 150 MG Pregabalin (Lyrica Cap) 300 mg HS PO 04/13/17 21:00 05/13/17 20:59 04/14/17 22:21 300 MG Spironolactone (Aldactone Tab) 25 mg QAM PO 04/14/17 09:00 05/14/17 08:59 04/15/17 08:07 25 MG Tramadol HCl (Ultram Tab) 50 mg Q8 PRN PO 04/13/17 16:45 05/13/17 16:44 04/15/17 08:14 50 MG Venlafaxine HCl (effeXOR EXTENDED REL CAP) 75 mg QAM PO 04/14/17 09:00 05/14/17 08:59 04/15/17 08:09 75 MG Venlafaxine HCl (effeXOR EXTENDED REL CAP) 150 mg QPM PO 04/13/17 21:00 05/13/17 20:59 04/14/17 22:22 150 MG Albuterol (Ventolin Hfa Inhaler) 2 puffs Q4-6H PRN INH 04/13/17 16:45 05/13/17 16:44 Multivitamins/ Minerals (Multivitamin W/ Minerals Tab) 1 tab DAILY PO 04/14/17 09:00 05/14/17 08:59 04/15/17 08:10 1 TAB Pramipexole Dihydrochloride (miraPEX TAB) 0.75 mg QPM PO 04/13/17 21:00 05/13/17 20:59 04/14/17 22:22 0.75 MG Enoxaparin Sodium (Lovenox Inj) 40 mg QAM SQ 04/14/17 09:00 05/14/17 08:59 04/15/17 08:11 40 MG Miscellaneous (Iv Fluids Completed) 1 ea PRN PRN N/A 04/13/17 20:15 04/13/18 20:14 Glucose (Glucose 40% Gel) 15-30 GRAMS 15 GRAMS... UD PRN PO 04/14/17 08:30 05/14/17 08:29 Glucose (Glucose Chew Tab) 4-8 Tablets 4 Tabl... UD PRN PO 04/14/17 08:30 05/14/17 08:29 Dextrose (Dextrose 50% 50ML Syringe) 25-50ML OF 50% DW IV FOR... UD PRN IV 04/14/17 08:30 05/14/17 08:29 Glucagon (Glucagon Inj) 1 mg UD PRN SQ 04/14/17 08:30 05/14/17 08:29 Hydrochlorothiazide (Hydrochlorothiazide Tab) 25 mg QAM PO 04/16/17 09:00 05/16/17 08:59 Ethacrynic Acid (Edecrin Tab) 50 mg BID17 PO 04/15/17 17:00 05/15/17 16:59 Magnesium Oxide (Mag-Ox Tab) 400 mg DAILY PO 04/16/17 09:00 05/16/17 08:59 (Halley Caraballo, JEM) Objective Vital Signs Date Time Temp Pulse Resp B/P (MAP) Pulse Ox O2 Delivery O2 Flow Rate FiO2 04/15/17 12:00 Room Air 04/15/17 11:48 36.5 88 20 99/76 (84) 94 04/15/17 08:00 Room Air 04/15/17 07:47 36.9 89 16 142/96 (111) 94 04/15/17 04:00 Room Air 04/15/17 03:56 36.8 89 18 148/63 (91) 92 Room Air 04/15/17 00:00 Room Air 04/14/17 23:43 37.0 90 23 130/75 (93) 95 Room Air 04/14/17 20:38 37.0 94 22 114/71 (85) 96 Room Air 04/14/17 20:00 Room Air 04/14/17 16:10 Room Air 04/14/17 15:55 91 94 04/14/17 15:12 37.0 104 27 129/43 (71) 100 Room Air (Halley Caraballo, PA-C) Physical Exam General Appearance: WD/WN, no apparent distress Eyes: sclerae normal ENT: hearing grossly normal Neck: supple, no JVD, trachea midline Respiratory/Chest: no respiratory distress, no accessory muscle use, + decreased breath sounds Cardiovascular: regular rate, rhythm, no gallop, no murmur Abdomen: normal bowel sounds, non tender, soft Extremities: + swelling (pitting edema extending to thighs) Neurologic/Psychiatric: alert, oriented x 3 Skin: normal color, warm/dry (Halley Caraballo, PA-C) Laboratory Results Last 24 Hours Test 04/14/17 15:59 04/14/17 16:00 04/14/17 21:13 04/15/17 06:54 Bedside Glucose 69 mg/dl 82 mg/dl 104 mg/dl 95 mg/dl Test 04/15/17 07:22 04/15/17 11:22 04/15/17 11:46 White Blood Count 8.35 K/uL Red Blood Count 4.23 M/uL Hemoglobin 11.5 g/dL Hematocrit 36.5 % Mean Corpuscular Volume 86.3 fL Mean Corpuscular Hemoglobin 27.2 pg Mean Corpuscular Hemoglobin Concent 31.5 g/dl RDW Standard Deviation 48.8 fL RDW Coefficient of Variation 15.6 % Platelet Count 244 K/uL Mean Platelet Volume 10.7 fL Sodium Level 142 mmol/L Potassium Level 4.0 mmol/L Chloride Level 106 mmol/L Carbon Dioxide Level 26 mmol/L Anion Gap 9.0 mmol/L Blood Urea Nitrogen 43 mg/dl Creatinine 1.33 mg/dl Est Creatinine Clear Calc Drug Dose 57.2 ml/min Estimated GFR () 48.8 Estimated GFR (Non- 42.1 BUN/Creatinine Ratio 32.5 Random Glucose 85 mg/dl Calcium Level 9.0 mg/dl Magnesium Level 1.3 mg/dl Troponin I 0.082 ng/ml Bedside Glucose 56 mg/dl 74 mg/dl (Halley Caraballo, DARÍOC) Assessment and Plan 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 4 weeks ago) - approx. neg 2 liters - So far is at a + fluid balance; Troponins mildly elevated but trending down and appear to be demand ischemia - Echo - EF 25-30%; severe global hypokinessis; reduced R venticular systolic function; R systolic pressures 40-50 mmHg - Ethacrynate 50 mg po BID - due to anaphylactic reaction with Lasix -- Ran insurance and this will require prior authorization and will need ordered if the plan is to continue this on D/C -- Will do some research on other options/cross contamination - Increased Spironolactone 25 mg BID - may need to optimize this given - ASA 81 mg daily, Plavix 75 mg daily, Coreg 6.25 mg BID, HCTZ 25 mg daily - Consult cardiology - appreciate recommendations TARIQ: - Likely multifactorial between her cardiomyopathy, Obesity, and pulmonary HTN - Currently on RA but likely need two-step prior to D/C T2DM with Hypoglycemia: - A1c showing improvement from 13 to 10 - continues to have hypoglycemic episodes - may be more the reasoning for her improving A1c if this is frequent - Will hold Lantus tonight and monitor glucose readings and just cover with SSI - will re-evaluate pending further glucose readings Asthma: - Albuterol QID PRN DVT Prophylaxis: Lovenox 40 mg SC daily Disposition: - PT/OT evaluations - will need Rx for shahram peña (Halley Caraballo PA-C) Attending Attestation: Pt seen/examined, chart reviewed, care plan d/w LULI Caraballo. I agree w/ the boswell components of her documentation. Overall her breathing is improved and abdominal distension from fluid is better. She c/o b/l knee pain, worse on right, due to recent fall to her knees at her home. VSS afebrile gen - obese, nad neck - no JVD heart - RRR, s1, s2 lungs - scant rales b/l bases abd - soft, likely ascites ext - right knee with mild-mod effusion, no effusion on left; right knee - positive for pain along lateral joint line; negative McMurrays, robyn, and drawer signs BMP stable some hypoglycemia A/P: acute/chronic systolic/diastolic CHF - appreciate cardiology recs. continue ethycrainic acid IV cont aldactone & HCTZ per cardiology recs cont BB unclear why she is not on low-dose ELADIO or ARB right knee pain - 2nd to trauma - repeat x-rays today, r/o fracture suspect her right knee effusion is bloody fluid from trauma ICE prn cont tele status J SAM TORRES (Sabino George MD)
[2017-04-15 15:52] VITALS: BP 127/71; PULSE 87; TEMP 36.7; O2SAT 94
[2017-04-15] MEDS ORDERED: MAGNESIUM SULFATE 1GM / D5W 1 GM in PREMIXED IN D5W 100 ML IV ONE (16:00)
[2017-04-15] MEDS ORDERED: TRAMADOL HCL 50 MG TAB PO PRN (16:30)
[2017-04-15] MEDS: ETHACRYNIC ACID 25 MG TAB PO SCH (16:45)
--- NOTE | 2017-04-15 17:52 | DIAGNOSTIC IMAGING REPORT ---
R KNEE 4 OR MORE VIEWS HISTORY: 66 years-old Female lateral joint line pain, recent fall, effusion; assess for Fx acute right knee pain status post fall COMPARISON: Right knee radiographs 04/04/2017 TECHNIQUE: 4 views of the right knee FINDINGS: There is mild medial and patellofemoral joint space narrowing with marginal spurring noted about the patella. No acute fracture or subluxation. Trace joint effusion suspected. There is moderate soft tissue swelling about the knee. There is spurring of the tibial tuberosity. Peripheral vascular disease. IMPRESSION: 1. Trace joint effusion without acute fracture or subluxation. 2. Moderate soft tissue swelling about the knee. 3. Peripheral vascular disease. The above report was generated using voice recognition software. It may contain grammatical, syntax or spelling errors. Electronically signed by: Wander Paula M.D. 04/15/2017 5:51 PM Dictated Date/Time: 04/15/2017 5:48 PM
[2017-04-15 20:04] VITALS: BP 107/87; PULSE 85; TEMP 36.6; O2SAT 100
[2017-04-15] MEDS: VENLAFAXINE HCL XR 150 MG CAPXR PO SCH (21:04)
[2017-04-15] MEDS: MIRTAZAPINE TAB 15 MG TAB PO SCH (21:04)
[2017-04-15] MEDS: PRAMIPEXOLE DIHYDROCHLORIDE 0.25MG TAB PO SCH (21:04)
[2017-04-15] MEDS: FAMOTIDINE 20 MG TAB PO SCH (21:07)
[2017-04-15 23:40] VITALS: BP 111/71; PULSE 93; TEMP 37; O2SAT 97
[2017-04-16 04:21] VITALS: BP 142/72; PULSE 93; TEMP 36.8; O2SAT 98
[2017-04-16] MEDS: LEVOTHYROXINE 150 MCG TAB PO SCH (05:38)
[2017-04-16 07:31] LABS: CALCIUM 9.3 mg/dl (8.5-10.1); CREATININE 1.27 mg/dl (0.60-1.20); POTASSIUM 4.2 mmol/L (3.5-5.1)
[2017-04-16 08:07] VITALS: BP 116/80; PULSE 95; TEMP 36.6; O2SAT 95
[2017-04-16] MEDS: INSULIN ASPART 100 UNITS/ML 3 ML PEN SQ SCH ×3 (08:42→16:53)
[2017-04-16] MEDS: CARVEDILOL 6.25 MG TAB PO SCH ×2 (08:43→16:49)
[2017-04-16] MEDS: OXYBUTYNIN CHLORIDE 5 MG TAB PO SCH ×2 (08:43→22:44)
[2017-04-16] MEDS: ASPIRIN 81 MG ECTAB PO SCH (08:43)
[2017-04-16] MEDS: HYDROCHLOROTHIAZIDE 25 MG TAB PO SCH (08:44)
[2017-04-16] MEDS: PAROXETINE 20 MG TAB PO SCH (08:45)
[2017-04-16] MEDS: CLOPIDOGREL BISULFATE 75 MG TAB PO SCH (08:45)
[2017-04-16] MEDS: CEROVITE ADV FORMULA TAB PO SCH (08:45)
[2017-04-16] MEDS: ENOXAPARIN 40 MG/0.4 ML SYR SQ SCH (08:46)
[2017-04-16] MEDS: TRAMADOL HCL 50 MG TAB PO PRN ×2 (08:50→22:43)
[2017-04-16] MEDS: PREGABALIN 150 MG CAP PO SCH ×2 (08:50→22:44)
[2017-04-16] MEDS ORDERED: MAGNESIUM OXIDE 400 MG TAB PO SCH (09:00)
[2017-04-16] MEDS: SPIRONOLACTONE 25 MG TAB PO SCH ×2 (09:40→22:43)
[2017-04-16] MEDS: ETHACRYNIC ACID 25 MG TAB PO SCH ×2 (09:40→16:49)
[2017-04-16] MEDS: VENLAFAXINE HCL XR 75 MG CAPXR PO SCH (09:41)
[2017-04-16 12:01] VITALS: BP 115/60; PULSE 83; TEMP 36.7; O2SAT 96
[2017-04-16 15:26] VITALS: BP 121/79; PULSE 90; TEMP 36.7; O2SAT 93
[2017-04-16] MEDS ORDERED: ETHACRYNATE SOD FOR INJ 50 MG VIAL IV SCH (17:00)
[2017-04-16 19:42] VITALS: BP 138/88; PULSE 89; TEMP 36.8; O2SAT 96
--- NOTE | 2017-04-16 21:27 | Progress Note ---
Subjective Date of Service: Apr 16, 2017. Subjective Pt evaluation today including: conversation w/ patient, physical exam, chart review, lab review, review of studies (knee x-rays), review of inpatient medication list Pain: right knee - improved today PO Intake: normal Voiding: no voiding problems tele stable overnight; PAT noted she offers no complaints feeling better Problem List Medical Problems: (1) ACS (acute coronary syndrome) Status: Acute (2) Acute kidney injury Status: Acute (3) CHF (congestive heart failure) Status: Acute (4) CHF exacerbation Status: Acute (5) COPD (chronic obstructive pulmonary disease) Status: Acute (6) COPD exacerbation Status: Acute (7) Elevated troponin Status: Acute (8) Hypoxia Status: Acute (9) Influenza Status: Acute (10) Pneumonia Status: Acute (11) Troponin level elevated Status: Acute (12) Vomiting Status: Acute Review of Systems Constitutional: No fever Respiratory: + dyspnea on exertion, No cough, No sputum, No wheezing, No shortness of breath, No dyspnea at rest Cardiac: No chest pain, No orthopnea, No PND, No edema Abdomen: No pain, No nausea, No vomiting Objective Vital Signs Date Time Temp Pulse Resp B/P (MAP) Pulse Ox O2 Delivery O2 Flow Rate FiO2 04/16/17 19:42 36.8 89 20 138/88 (105) 96 Room Air 04/16/17 16:00 Room Air 04/16/17 15:26 36.7 90 20 121/79 (93) 93 Room Air 04/16/17 12:01 36.7 83 18 115/60 (78) 96 Room Air 04/16/17 12:00 Room Air 04/16/17 08:07 36.6 95 28 116/80 (92) 95 Room Air 04/16/17 08:00 Room Air 04/16/17 04:21 36.8 93 20 142/72 (95) 98 04/16/17 04:00 Room Air 04/16/17 00:00 Room Air 04/15/17 23:40 37.0 93 20 111/71 (84) 97 Room Air Physical Exam General Appearance: no apparent distress, + obese ENT: pharynx normal Neck: no JVD Respiratory/Chest: no respiratory distress, no accessory muscle use, + rales ( very mild, bases) Cardiovascular: regular rate, rhythm, no gallop, no murmur Abdomen: normal bowel sounds, non tender, soft, no organomegaly Extremities: no pedal edema Neurologic/Psychiatric: alert, oriented x 3 Laboratory Results Last 24 Hours Test 04/16/17 06:25 04/16/17 06:54 04/16/17 11:27 04/16/17 16:18 Sodium Level 138 mmol/L Potassium Level 4.2 mmol/L Chloride Level 101 mmol/L Carbon Dioxide Level 25 mmol/L Anion Gap 12.0 mmol/L Blood Urea Nitrogen 42 mg/dl Creatinine 1.27 mg/dl Est Creatinine Clear Calc Drug Dose 59.1 ml/min Estimated GFR () 51.6 Estimated GFR (Non- 44.6 BUN/Creatinine Ratio 32.7 Random Glucose 214 mg/dl Calcium Level 9.3 mg/dl Bedside Glucose 210 mg/dl 129 mg/dl 79 mg/dl Test 04/16/17 20:43 Bedside Glucose 148 mg/dl Assessment and Plan 66yo female: 1. acute on Chronic Mixed Systolic/Diastolic CHF - 2nd to ischemic cardiomyopathy - continues to improve with triple diuretic therapy. She requires Ethacrynate due to known anaphylactic reaction with Lasix. This is a medical necessity for her. Cont PO ethacrynate 50mg BID along with aldactone 25mg BID and HCTZ 25mg daily. BMP, mag in am. Prior auth for ethacrynate will be needed on Tuesday. Cont BB. Consider low-dose ELADIO or ARB. 2. CAD - continue ASA 81 mg daily, Plavix 75 mg daily, Coreg 6.25 mg BID. Not a candidate for statin therapy due to prior reactions to multiple statin agents. 3. morbid obesity with BMI 42 4. right knee pain - mild effusion, due to trauma/fall at home. x-rays negative for fracture. 5. pulmonary HTN - noted. 6. T2DM - uncontrolled, but improved with adjustments to basal/bolus insulins. Has had mild hypoglycemia - has resolved. 7. asthma - not active at this time; albuterol prn. 8. DVT proph - lovenox daily. 9. hypothyroidism - TSH compensated; cont synthroid. Continued [facility] [place] stay due to: multiple IV medications needed Discharge planning: home
[2017-04-16] MEDS: MIRTAZAPINE TAB 15 MG TAB PO SCH (22:44)
[2017-04-16] MEDS: VENLAFAXINE HCL XR 150 MG CAPXR PO SCH (22:44)
[2017-04-16] MEDS: PRAMIPEXOLE DIHYDROCHLORIDE 0.25MG TAB PO SCH (22:45)
[2017-04-16] MEDS: FAMOTIDINE 20 MG TAB PO SCH (22:46)
[2017-04-16 23:20] VITALS: BP 155/87; PULSE 95; TEMP 36.8; O2SAT 96
[2017-04-17] VITALS (10 sets, daily range): BP systolic 113–155; BP diastolic 60–88; PULSE 84–96; TEMP 36.4–36.9; O2SAT 91–100
[2017-04-17 06:07] LABS: HEMATOCRIT 35.1 % (37-47); MEAN CORPUSCULAR HGB CONC 31.3 g/dl (32-36); MEAN PLATELET VOLUME 11.2 fL (7.4-10.4); PLATELET COUNT 239 K/uL (130-400); RED CELL DISTRIBUTION WIDTH CV 15.4 % (11.5-14.5); RED CELL DISTRIBUTION WIDTH SD 47.9 fL (36.4-46.3); WHITE BLOOD COUNT 8.39 K/uL (4.8-10.8)
[2017-04-17] MEDS: LEVOTHYROXINE 150 MCG TAB PO SCH (06:07)
[2017-04-17 06:44] LABS: CALCIUM 9.2 mg/dl (8.5-10.1); CREATININE 1.3 mg/dl (0.60-1.20); POTASSIUM 4.1 mmol/L (3.5-5.1)
[2017-04-17] MEDS: TRAMADOL HCL 50 MG TAB PO PRN ×2 (08:43→20:51)
[2017-04-17] MEDS: PREGABALIN 150 MG CAP PO SCH ×2 (08:44→20:51)
[2017-04-17] MEDS: CARVEDILOL 6.25 MG TAB PO SCH ×3 (08:46→17:45)
[2017-04-17] MEDS: ASPIRIN 81 MG ECTAB PO SCH (08:47)
[2017-04-17] MEDS: SPIRONOLACTONE 25 MG TAB PO SCH ×2 (08:47→20:44)
[2017-04-17] MEDS: CEROVITE ADV FORMULA TAB PO SCH (08:48)
[2017-04-17] MEDS: OXYBUTYNIN CHLORIDE 5 MG TAB PO SCH ×2 (08:48→20:43)
[2017-04-17] MEDS: VENLAFAXINE HCL XR 75 MG CAPXR PO SCH (08:48)
[2017-04-17] MEDS: ETHACRYNIC ACID 25 MG TAB PO SCH ×2 (08:48→15:59)
[2017-04-17] MEDS: CLOPIDOGREL BISULFATE 75 MG TAB PO SCH (08:49)
[2017-04-17] MEDS: ENOXAPARIN 40 MG/0.4 ML SYR SQ SCH (08:49)
[2017-04-17] MEDS: HYDROCHLOROTHIAZIDE 25 MG TAB PO SCH (08:49)
[2017-04-17] MEDS: PAROXETINE 20 MG TAB PO SCH (08:49)
[2017-04-17] MEDS: INSULIN ASPART 100 UNITS/ML 3 ML PEN SQ SCH ×3 (09:01→17:01)
[2017-04-17] MEDS: MAGNESIUM SULFATE 1GM / D5W 1 GM in PREMIXED IN D5W 100 ML IV SCH ×3 (09:13→11:54)
[2017-04-17] MEDS: MAGNESIUM OXIDE 400 MG TAB PO SCH ×2 (09:30→20:44)
[2017-04-17] MEDS: LISINOPRIL 2.5 MG TAB PO SCH (09:30)
--- NOTE | 2017-04-17 14:57 | DIAGNOSTIC IMAGING REPORT ---
KUB HISTORY: Acute diarrhea with heart failure diarrhea; eval bowel-gas pattern COMPARISON: Thoracic spine radiographs 04/14/2017 FINDINGS: The bowel gas pattern is non-obstructive. Moderate stool volume is seen throughout the ascending and transverse colon. There is no organomegaly. No renal calculi. No ureteral calculi. No pneumoperitoneum or pneumatosis. Mild to moderate degenerative changes of the bilateral hips. Multilevel degenerative changes of the spine with mild levoscoliosis. IMPRESSION: 1. Nonobstructive bowel gas pattern. 2. Moderate stool volume of the ascending and transverse colon. Electronically signed by: Wander Paula M.D. 04/17/2017 2:56 PM Dictated Date/Time: 04/17/2017 2:54 PM
[2017-04-17 15:16] LABS: ALBUMIN 3.1 gm/dl (3.4-5.0)
--- NOTE | 2017-04-17 20:32 | Progress Note ---
Subjective Date of Service: Apr 17, 2017. Subjective Pt evaluation today including: conversation w/ patient, physical exam, chart review, lab review, review of inpatient medication list Pain: none reported PO Intake: normal Voiding: no voiding problems tele stable overnight denies any specific complaints except for "loose stool" she has had this for several months; stools alternate between normal calibre and loose; never watery; no blood denies cough or dyspnea at rest has mild TARIQ only when ambulating family has not brought in home CPAP unit for her KAVIN Problem List Medical Problems: (1) ACS (acute coronary syndrome) Status: Acute (2) Acute kidney injury Status: Acute (3) CHF (congestive heart failure) Status: Acute (4) CHF exacerbation Status: Acute (5) COPD (chronic obstructive pulmonary disease) Status: Acute (6) COPD exacerbation Status: Acute (7) Elevated troponin Status: Acute (8) Hypoxia Status: Acute (9) Influenza Status: Acute (10) Pneumonia Status: Acute (11) Troponin level elevated Status: Acute (12) Vomiting Status: Acute Review of Systems Respiratory: + dyspnea on exertion, No shortness of breath Cardiac: + edema, No chest pain, No orthopnea Abdomen: No pain Objective Vital Signs Date Time Temp Pulse Resp B/P (MAP) Pulse Ox O2 Delivery O2 Flow Rate FiO2 04/17/17 18:26 93 123/82 (96) 04/17/17 17:15 36.7 93 20 130/73 (92) 100 Room Air 04/17/17 17:11 36.9 84 20 91 04/17/17 16:00 Room Air 04/17/17 15:22 36.9 84 20 113/60 (77) 91 Room Air 04/17/17 12:02 36.4 86 22 118/76 (90) 98 Room Air 04/17/17 12:00 Room Air 04/17/17 08:00 Room Air 04/17/17 07:15 36.5 90 22 155/73 (100) 95 Room Air 04/17/17 04:00 Room Air 04/17/17 03:56 36.8 96 20 123/88 (100) 93 Room Air 04/17/17 00:00 Room Air 04/16/17 23:20 36.8 95 19 155/87 (109) 96 Room Air Physical Exam General Appearance: no apparent distress ENT: pharynx normal (MM slightly dry ) Neck: no JVD Respiratory/Chest: no respiratory distress, no accessory muscle use, + rales ( bases) Cardiovascular: regular rate, rhythm, no gallop, no murmur Abdomen: normal bowel sounds, non tender, soft, no organomegaly Extremities: + pedal edema (trace-1+ b/l ) Neurologic/Psychiatric: alert, oriented x 3 Laboratory Results Last 24 Hours Test 04/16/17 20:43 04/17/17 05:40 04/17/17 06:43 04/17/17 11:06 Bedside Glucose 148 mg/dl 158 mg/dl 253 mg/dl White Blood Count 8.39 K/uL Red Blood Count 4.08 M/uL Hemoglobin 11.0 g/dL Hematocrit 35.1 % Mean Corpuscular Volume 86.0 fL Mean Corpuscular Hemoglobin 27.0 pg Mean Corpuscular Hemoglobin Concent 31.3 g/dl RDW Standard Deviation 47.9 fL RDW Coefficient of Variation 15.4 % Platelet Count 239 K/uL Mean Platelet Volume 11.2 fL Sodium Level 138 mmol/L Potassium Level 4.1 mmol/L Chloride Level 101 mmol/L Carbon Dioxide Level 28 mmol/L Anion Gap 9.0 mmol/L Blood Urea Nitrogen 42 mg/dl Creatinine 1.30 mg/dl Est Creatinine Clear Calc Drug Dose 57.0 ml/min Estimated GFR () 50.2 Estimated GFR (Non- 43.3 BUN/Creatinine Ratio 32.4 Random Glucose 163 mg/dl Calcium Level 9.2 mg/dl Magnesium Level 1.3 mg/dl Test 04/17/17 14:25 04/17/17 15:00 04/17/17 16:27 Magnesium Level 1.9 mg/dl Albumin 3.1 gm/dl Urine Color YELLOW Urine Appearance CLEAR Urine pH 6.0 Urine Specific [place] 1.012 Urine Protein NEG Urine Glucose (UA) NEG Urine Ketones NEG Urine Occult Blood NEG Urine Nitrite NEG Urine Bilirubin NEG Urine Urobilinogen NEG Urine Leukocyte Esterase NEG Bedside Glucose 187 mg/dl Assessment and Plan 66yo female: 1. acute on Chronic Mixed Systolic/Diastolic CHF - 2nd to ischemic cardiomyopathy - continues to improve with triple diuretic therapy. She requires Ethacrynate due to known anaphylactic reaction with Lasix. This is a medical necessity for her. Cont PO ethacrynate 50mg BID along with aldactone 25mg BID and HCTZ 25mg daily. Prior auth for ethacrynate will be needed on Tuesday. Cont BB. Cont low-dose ELADIO. 2. CAD - continue ASA 81 mg daily, Plavix 75 mg daily, Coreg 6.25 mg BID. Not a candidate for statin therapy due to prior reactions to multiple statin agents. 3. morbid obesity with BMI 41 4. right knee pain - mild effusion, due to trauma/fall at home. x-rays negative for fracture. 5. pulmonary HTN - noted. Assess for home O2 at d/c. 6. T2DM - improved; continue lantus/novolog. Has had mild hypoglycemia - has resolved. 7. asthma - controlled; albuterol prn. 8. DVT proph - lovenox daily. 9. hypothyroidism - TSH compensated; cont synthroid. 10. KAVIN - encouraged her to have family bring in home CPAP unit. Alternatively we can order [facility] CPAP for night-time use. 11. hypomagnesemia - replace with 3 gms mag sulfate; mag later in the day was normal. Repeat bmp/mag in AM. PT, OT evals to ensure safe for home d/c tele move to med/surg Continued [facility] stay due to: multiple IV medications needed Discharge planning: home
[2017-04-17] MEDS: MIRTAZAPINE TAB 15 MG TAB PO SCH (20:43)
[2017-04-17] MEDS: VENLAFAXINE HCL XR 150 MG CAPXR PO SCH (20:43)
[2017-04-17] MEDS: PRAMIPEXOLE DIHYDROCHLORIDE 0.25MG TAB PO SCH (20:45)
[2017-04-17] MEDS: FAMOTIDINE 20 MG TAB PO SCH (20:45)
[2017-04-17] MEDS: INSULIN GLARGINE SOLOSTAR 100 UNITS/ML 3 ML PEN SC SCH (20:54)
[2017-04-18] MEDS: LEVOTHYROXINE 150 MCG TAB PO SCH (05:59)
--- NOTE | 2017-04-18 07:28 | Clinical Documentation Query ---
CLINICAL DOCUMENTATION QUERY Dr. VARGAS, In your clinical opinion is this patient being managed for: ( ) Chronic kidney disease, stage 3 ( ) Not Agree ( ) Other explanation of clinical findings (Please Explain) ( ) Unable to determine (Please Define) ( ) Need to Discuss The medical record reflects the following clinical findings, treatment, and risk factors. Clinical Indicators: 66 yo female presenting with acute combined systolic/diastolic CHF. Review of historical GFR over the past 2 years revealed range of 39.9-53.8 Treatment: monitor PRP's, treat comorbid conditions Risk Factors:DM with nephropathy and neuropathy, HTN, age, Chronic combined CHF, COPD Please clarify and document your clinical opinion in the progress notes and discharge summary. Terms such as "probable", "suspected", "likely", "questionable", "possible", or "still to be ruled out" are acceptable. IF IN AGREEMENT, YOU MUST DOCUMENT ABOVE DIAGNOSTIC STATEMENT IN DAILY PROGRESS NOTES AND DISCHARGE SUMMARY. This document is not part of the patient's record. Thank You, Jessenia Mendez RN [phone]
[2017-04-18 07:47] VITALS: BP 137/77; PULSE 91; PULSE 93; TEMP 36.7; O2SAT 91
[2017-04-18 09:18] LABS: CALCIUM 9.6 mg/dl (8.5-10.1); CREATININE 1.49 mg/dl (0.60-1.20)
--- NOTE | 2017-04-18 09:30 | Cardiology Follow-Up ---
Subjective Date of Service: Apr 18, 2017. Pt evaluation today including: conversation w/ patient, physical exam, chart review, lab review, review of studies History of Present Illness When the patient claims feeling well. Her appetite is improved. She is happy with the appearance of her legs. She has been minimally ambulatory around her room. She states that her breathing is better. She has not report significant dizziness. Social History Smoking Status: Former Smoker History of Alcohol Use: No Review of Systems Respiratory: + dyspnea on exertion, No shortness of breath Cardiac: + edema, No chest pain, No orthopnea Per HPI. Patient also reports some loose stools recently. Previously she has constipation but now she has more loose stools Objective Vital Signs Past 12 Hours Date Time Temp Pulse Resp B/P (MAP) Pulse Ox O2 Delivery O2 Flow Rate FiO2 04/18/17 08:00 Room Air 04/18/17 07:47 36.7 93 18 137/77 (97) 91 Room Air 91 04/18/17 01:00 CPAP 04/17/17 23:30 93 96 04/17/17 23:04 36.9 95 18 127/71 (89) 96 Room Air Last Recorded Weight-Kilograms: 116.400 Physical Exam She is alert and oriented x3. Mood affect appear normal. She answered all questions appropriately. HEENT: Sclerae are anicteric. Pupils are equal and reactive to light and accommodation. Extraocular movements were intact. Neuro: Cranial nerves intact Neck: Examination of the submandibular region did not reveal any significant lymphadenopathy. Carotids are palpable bilaterally and free of bruits on auscultation. There was no evidence of jugular venous distention although the neck tissues were redundant. The thyroid was not enlarged. Lungs: Occasional rales at the bases bilaterally. She has normal respiratory effort without use of accessory muscles. There is normal pulmonary excursion. Cardiac: The rhythm was regular. S1 and S2 were normal. There are no murmurs on examination. The PMI was not markedly displaced on palpation. Abdomen: The abdomen was soft and nontender. Extremities: Patient has bilateral radial pulses that are equal in intensity. There is no evidence cyanosis or clubbing. Minimal peripheral edema. Left ankle bandaged Skin: There are no rashes noted on examination today. She has multiple abrasions on her lower extremities Data Laboratory Results: Last 24 Hours Test 04/17/17 11:06 04/17/17 14:25 04/17/17 15:00 04/17/17 16:27 Bedside Glucose 253 mg/dl 187 mg/dl Magnesium Level 1.9 mg/dl Albumin 3.1 gm/dl Urine Color YELLOW Urine Appearance CLEAR Urine pH 6.0 Urine Specific [place] 1.012 Urine Protein NEG Urine Glucose (UA) NEG Urine Ketones NEG Urine Occult Blood NEG Urine Nitrite NEG Urine Bilirubin NEG Urine Urobilinogen NEG Urine Leukocyte Esterase NEG Test 04/17/17 20:31 04/18/17 08:09 Bedside Glucose 177 mg/dl Sodium Level 138 mmol/L Potassium Level 4.0 mmol/L Chloride Level 99 mmol/L Carbon Dioxide Level 30 mmol/L Anion Gap 9.0 mmol/L Blood Urea Nitrogen 38 mg/dl Creatinine 1.49 mg/dl Est Creatinine Clear Calc Drug Dose 49.4 ml/min Estimated GFR () 42.6 Estimated GFR (Non- 36.7 BUN/Creatinine Ratio 25.6 Random Glucose 175 mg/dl Calcium Level 9.6 mg/dl Magnesium Level 1.7 mg/dl Assessment and Plan 1. Acute decompensated systolic heart failure: His definitely improved. She has had an excellent diuresis on the other chronic acid. Three possible that the time of discharge she could be placed on a once daily dose with elimination of her hydrochlorothiazide. Her renal function has declined slightly, but will perhaps normalize once her diuretic regimen his may less aggressive. She has continued on her beta-angela and ELADIO-inhibitor. 2. Ischemic cardiomyopathy: Severely reduced LV systolic function. We can discuss the option of a prophylactic ICD in the outpatient setting 3. Coronary artery disease: No evidence of an acute coronary syndrome. Continue aggressive secondary prevention. Patient did report recently stopping her rosuvastatin due to perceived weakness in the lower extremities. He has had some intolerance to statins in the past. 4. Dyspnea: Improved overall.
[2017-04-18] MEDS: INSULIN ASPART 100 UNITS/ML 3 ML PEN SQ SCH ×3 (09:33→18:57)
[2017-04-18] MEDS: PREGABALIN 150 MG CAP PO SCH ×2 (09:33→20:55)
[2017-04-18] MEDS: TRAMADOL HCL 50 MG TAB PO PRN ×2 (09:33→19:03)
[2017-04-18] MEDS: MAGNESIUM OXIDE 400 MG TAB PO SCH ×2 (09:34→20:50)
[2017-04-18] MEDS: LISINOPRIL 2.5 MG TAB PO SCH (09:34)
[2017-04-18] MEDS: OXYBUTYNIN CHLORIDE 5 MG TAB PO SCH ×2 (09:35→20:49)
[2017-04-18] MEDS: SPIRONOLACTONE 25 MG TAB PO SCH ×2 (09:35→20:50)
[2017-04-18] MEDS: HYDROCHLOROTHIAZIDE 25 MG TAB PO SCH (09:36)
[2017-04-18] MEDS: PAROXETINE 20 MG TAB PO SCH (09:36)
[2017-04-18] MEDS: VENLAFAXINE HCL XR 75 MG CAPXR PO SCH (09:36)
[2017-04-18] MEDS: ETHACRYNIC ACID 25 MG TAB PO SCH ×2 (09:36→16:29)
[2017-04-18] MEDS: CARVEDILOL 6.25 MG TAB PO SCH ×2 (09:37→19:00)
[2017-04-18] MEDS: CLOPIDOGREL BISULFATE 75 MG TAB PO SCH (09:37)
[2017-04-18] MEDS: CEROVITE ADV FORMULA TAB PO SCH (09:37)
[2017-04-18] MEDS: ASPIRIN 81 MG ECTAB PO SCH (09:37)
[2017-04-18] MEDS: ENOXAPARIN 40 MG/0.4 ML SYR SQ SCH (09:38)
--- NOTE | 2017-04-18 15:05 | Hospitalist Progress Note ---
Hospitalist Progress Note Date of Service Apr 18, 2017. (Halley Caraballo, PA-C) Subjective Pt evaluation today including: conversation w/ patient, physical exam, chart review, lab review, review of studies, review of inpatient medication list Patient seen and evaluated. No acute events overnight. Continues to drop weight and diurese. Pending prior auth for diuretic given contraindication from Lasix allergy. Laying flat in bed and reporting breathing is improved. States she still has TARIQ but noticing it takes a little bit more activity to make this worse compared to when she came in. Given her pulmonary HTN and cardiomyopathy would suspect she will continue to have an element of TARIQ. Constitutional: No fever, No chills Respiratory: + dyspnea on exertion (improving - reporting it takes more activity to get SOB compared to admission), No dyspnea at rest Cardiovascular: No chest pain Abdomen: No pain, No nausea, No vomiting, No diarrhea Musculoskeletal: + swelling Female : + urinary frequency, No dysuria Heme: No abnormal bleeding/bruising (Halley Caraballo, PA-C) Medications Current Inpatient Medications Medications (Trade) Dose Ordered Sig/Frieda Route Start Time Stop Time Status Last Admin Dose Admin Albuterol Sulfate (Ventolin 0.083% 2.5MG/3ML Neb) 2.5 mg QID PRN INH 04/13/17 16:45 05/13/17 16:44 Aspirin (Ecotrin Tab) 81 mg DAILY PO 04/14/17 09:00 05/14/17 08:59 04/18/17 09:37 81 MG Carvedilol (Coreg Tab) 6.25 mg BIDM PO 04/13/17 18:00 05/13/17 17:59 04/18/17 09:37 6.25 MG Clopidogrel Bisulfate (plAVix TAB) 75 mg DAILY PO 04/14/17 09:00 05/14/17 08:59 04/18/17 09:37 75 MG Ergocalciferol (Vitamin D Cap) 50,000 interunit Tu@0900 PO 04/19/17 09:00 05/19/17 08:59 Famotidine (Pepcid Tab) 20 mg QPM PO 04/13/17 21:00 05/13/17 20:59 04/17/17 20:45 20 MG Insulin Aspart (novoLOG ASPART) AC SQ 04/14/17 07:00 05/14/17 07:59 04/18/17 14:02 19 UNITS Levothyroxine Sodium (Synthroid Tab) 150 mcg DAILYBB PO 04/14/17 06:00 05/14/17 05:59 04/18/17 05:59 150 MCG Lisinopril (Zestril Tab) 2.5 mg DAILY PO 04/14/17 09:00 05/14/17 08:59 Future hold 04/18/17 09:34 2.5 MG Mirtazapine (Remeron Tab) 30 mg HS PO 04/13/17 21:00 05/13/17 20:59 04/17/17 20:43 30 MG Oxybutynin Chloride (Ditropan Tab) 5 mg BID PO 04/13/17 21:00 05/13/17 20:59 04/18/17 09:35 5 MG Paroxetine HCl (pAXil TAB) 20 mg DAILY PO 04/14/17 09:00 05/14/17 08:59 04/18/17 09:36 20 MG Pregabalin (Lyrica Cap) 150 mg QAM PO 04/14/17 09:00 05/14/17 08:59 04/18/17 09:33 150 MG Pregabalin (Lyrica Cap) 300 mg HS PO 04/13/17 21:00 05/13/17 20:59 04/17/17 20:51 300 MG Tramadol HCl (Ultram Tab) 50 mg Q8 PRN PO 04/13/17 16:45 05/13/17 16:44 04/18/17 09:33 50 MG Venlafaxine HCl (effeXOR EXTENDED REL CAP) 75 mg QAM PO 04/14/17 09:00 05/14/17 08:59 04/18/17 09:36 75 MG Venlafaxine HCl (effeXOR EXTENDED REL CAP) 150 mg QPM PO 04/13/17 21:00 05/13/17 20:59 04/17/17 20:43 150 MG Albuterol (Ventolin Hfa Inhaler) 2 puffs Q4-6H PRN INH 04/13/17 16:45 05/13/17 16:44 Multivitamins/ Minerals (Multivitamin W/ Minerals Tab) 1 tab DAILY PO 04/14/17 09:00 05/14/17 08:59 04/18/17 09:37 1 TAB Pramipexole Dihydrochloride (miraPEX TAB) 0.75 mg QPM PO 04/13/17 21:00 05/13/17 20:59 04/17/17 20:45 0.75 MG Enoxaparin Sodium (Lovenox Inj) 40 mg QAM SQ 04/14/17 09:00 05/14/17 08:59 04/18/17 09:38 40 MG Miscellaneous (Iv Fluids Completed) 1 ea PRN PRN N/A 04/13/17 20:15 04/13/18 20:14 Glucose (Glucose 40% Gel) 15-30 GRAMS 15 GRAMS... UD PRN PO 04/14/17 08:30 05/14/17 08:29 Glucose (Glucose Chew Tab) 4-8 Tablets 4 Tabl... UD PRN PO 04/14/17 08:30 05/14/17 08:29 Dextrose (Dextrose 50% 50ML Syringe) 25-50ML OF 50% DW IV FOR... UD PRN IV 04/14/17 08:30 05/14/17 08:29 Glucagon (Glucagon Inj) 1 mg UD PRN SQ 04/14/17 08:30 05/14/17 08:29 Hydrochlorothiazide (Hydrochlorothiazide Tab) 25 mg QAM PO 04/16/17 09:00 05/16/17 08:59 04/18/17 09:36 25 MG Ethacrynic Acid (Edecrin Tab) 50 mg BID17 PO 04/15/17 17:00 05/15/17 16:59 Future hold 04/18/17 09:36 50 MG Spironolactone (Aldactone Tab) 25 mg BID PO 04/15/17 21:00 05/14/17 08:59 04/18/17 09:35 25 MG Tramadol HCl (Ultram Tab) 50 mg Q6H PRN PO 04/15/17 16:30 05/15/17 16:29 04/15/17 16:44 50 MG Magnesium Oxide (Mag-Ox Tab) 400 mg BID PO 04/17/17 09:00 05/16/17 08:59 04/18/17 09:34 400 MG Insulin Glargine (Lantus Solostar Pen) 15 units HS SC 04/17/17 21:00 05/17/17 20:59 04/17/17 20:54 15 UNITS (Halley Caraballo PA-C) Objective Vital Signs Date Time Temp Pulse Resp B/P (MAP) Pulse Ox O2 Delivery O2 Flow Rate FiO2 04/18/17 08:00 Room Air 04/18/17 07:47 36.7 93 18 137/77 (97) 91 Room Air 91 04/18/17 01:00 CPAP 04/17/17 23:30 93 96 04/17/17 23:04 36.9 95 18 127/71 (89) 96 Room Air 04/17/17 18:26 93 123/82 (96) 04/17/17 17:20 100 Room Air 04/17/17 17:15 36.7 93 20 130/73 (92) 100 Room Air 04/17/17 17:11 36.9 84 20 91 04/17/17 16:00 Room Air 04/17/17 15:22 36.9 84 20 113/60 (77) 91 Room Air (Halley Caraballo PA-C) Physical Exam General Appearance: WD/WN, no apparent distress Eyes: sclerae normal Neck: supple, no JVD, trachea midline Respiratory/Chest: no respiratory distress, no accessory muscle use, + crackles (bases b/l) Cardiovascular: regular rate, rhythm Abdomen: normal bowel sounds, non tender, soft Extremities: + swelling (Pitting edema b/l lower extremities) Neurologic/Psychiatric: alert Skin: normal color (Halley Caraballo PA-C) Laboratory Results Last 24 Hours Test 04/17/17 16:27 04/17/17 20:31 04/18/17 08:09 04/18/17 08:26 Bedside Glucose 187 mg/dl 177 mg/dl 159 mg/dl Sodium Level 138 mmol/L Potassium Level 4.0 mmol/L Chloride Level 99 mmol/L Carbon Dioxide Level 30 mmol/L Anion Gap 9.0 mmol/L Blood Urea Nitrogen 38 mg/dl Creatinine 1.49 mg/dl Est Creatinine Clear Calc Drug Dose 49.4 ml/min Estimated GFR () 42.6 Estimated GFR (Non- 36.7 BUN/Creatinine Ratio 25.6 Random Glucose 175 mg/dl Calcium Level 9.6 mg/dl Magnesium Level 1.7 mg/dl Test 04/18/17 11:59 Bedside Glucose 242 mg/dl (Halley Caraballo, PA-C) Assessment and Plan 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 4 weeks ago) - continues at negative fluid balance - Echo - EF 25-30%; severe global hypokinesis; reduced R venticular systolic function; R systolic pressures 40-50 mmHg - Ethacrynate 50 mg po BID - due to anaphylactic reaction with Lasix -- Awaiting insurance prior authorization - medically necessary given anaphylactic reaction to Lasix - Will hold Spironolactone and HCTZ tomorrow AM and assess Cr - ASA 81 mg daily, Plavix 75 mg daily, Coreg 6.25 mg BID, HCTZ 25 mg daily - Consult cardiology - appreciate recommendations - likely daily Ethacrynate with HCTZ D/Cd TARIQ: - Likely multifactorial between her cardiomyopathy, Obesity, and pulmonary HTN - Currently on RA but likely need two-step prior to D/C T2DM with Hypoglycemia: - A1c showing improvement from 13 to 10 - continues to have hypoglycemic episodes - may be more the reasoning for her improving A1c if this is frequent - Lantus 15 units SC daily with SSI -- Home diet may be significantly different than here but home Toujeo is 80 units...possible reduced dose on DC? Asthma: - Albuterol QID PRN DVT Prophylaxis: Lovenox 40 mg SC daily Disposition: - PT/OT evaluations - will need Rx for rolling walker - Plan to return home with [facility] - await insurance authorization - possible D/C when approval obtained Discharge planning: home with home health (Halley Caraballo PA-C) Attending Attestation: Pt seen/examined, chart reviewed, care plan d/w LULI Caraballo. I agree w/ the boswell components of her documentation. Pt "feeling good" - offered no complaints during my visit. Slept better last pm with CPAP for KAVIN. VSS weight again down today gen - nad neck - on obvious JVD heart - RRR lungs - minimal rales bases, no wheeze abd - soft, obese ext - trace edema b/l musculo - right knee effusion is smaller BMP - Cr slightly higher today A/P: acute/chronic systolic/diastolic CHF - improving nicely. Remains on HCTZ, aldactone, ethacrynic acid (latter due to anaphylaxis from lasix). Since Cr belem today would HOLD HCTZ and aldactone in AM while awaiting AM BMP. May be able to return home tomorrow. Await prior auth for oral ethacrynic acid - this is a medical necessity for patient. Medina GEORGE MD (Sabino George MD)
[2017-04-18 15:22] VITALS: BP 114/69; PULSE 82; TEMP 36.6; O2SAT 93
[2017-04-18 18:59] VITALS: BP 111/74; PULSE 82
[2017-04-18] MEDS: MIRTAZAPINE TAB 15 MG TAB PO SCH (20:50)
[2017-04-18] MEDS: VENLAFAXINE HCL XR 150 MG CAPXR PO SCH (20:50)
[2017-04-18] MEDS: PRAMIPEXOLE DIHYDROCHLORIDE 0.25MG TAB PO SCH (20:50)
[2017-04-18] MEDS: INSULIN GLARGINE SOLOSTAR 100 UNITS/ML 3 ML PEN SC SCH (20:55)
[2017-04-18] MEDS: FAMOTIDINE 20 MG TAB PO SCH (21:27)
[2017-04-18 22:21] VITALS: PULSE 93; O2SAT 95
[2017-04-18 23:50] VITALS: BP 113/57; PULSE 86; TEMP 36.5; O2SAT 98
[2017-04-19] MEDS: LEVOTHYROXINE 150 MCG TAB PO SCH (05:13)
[2017-04-19 06:05] LABS: HEMATOCRIT 35.2 % (37-47); HEMOGLOBIN 11.1 g/dL (12.0-16.0); MEAN CELL VOLUME 85.9 fL (80-100); MEAN CORPUSCULAR HEMOGLOBIN 27.1 pg (25-34); MEAN CORPUSCULAR HGB CONC 31.5 g/dl (32-36); MEAN PLATELET VOLUME 11.4 fL (7.4-10.4); PLATELET COUNT 219 K/uL (130-400); RED CELL DISTRIBUTION WIDTH CV 15.2 % (11.5-14.5); RED CELL DISTRIBUTION WIDTH SD 47.2 fL (36.4-46.3); WHITE BLOOD COUNT 7.07 K/uL (4.8-10.8)
--- NOTE | 2017-04-19 06:40 | Clinical Documentation Query ---
CLINICAL DOCUMENTATION QUERY Dr. VARGAS, In your clinical opinion is this patient being managed for: ( ) Acute kidney failure ( ) Not Agree ( ) Other explanation of clinical findings (Please Explain) ( ) Unable to determine (Please Define) ( ) Need to Discuss The medical record reflects the following clinical findings, treatment, and risk factors. Clinical Indicators: 66 yo female presenting with acute combined systolic/diastolic CHF. Initial Cr 1.09 which has trended up to Cr 1.49. Treatment: monitor PRP's, hold HCTZ and aldactone in AM Risk Factors: acute CHF requiring diuresis, HTN, DM Please clarify and document your clinical opinion in the progress notes and discharge summary. Terms such as "probable", "suspected", "likely", "questionable", "possible", or "still to be ruled out" are acceptable. IF IN AGREEMENT, YOU MUST DOCUMENT ABOVE DIAGNOSTIC STATEMENT IN DAILY PROGRESS NOTES AND DISCHARGE SUMMARY. This document is not part of the patient's record. Thank You, Jessenia Mendez, RN [phone]
[2017-04-19 06:42] LABS: CALCIUM 9.6 mg/dl (8.5-10.1); CREATININE 1.47 mg/dl (0.60-1.20); POTASSIUM 3.9 mmol/L (3.5-5.1)
[2017-04-19] MEDS ORDERED: ERGOCALCIFEROL 50,000 INTER.UNIT CAP PO SCH (09:00)
[2017-04-19 09:07] VITALS: BP 142/75; PULSE 93; TEMP 37; O2SAT 93
[2017-04-19] MEDS: PREGABALIN 150 MG CAP PO SCH (09:11)
[2017-04-19] MEDS: LISINOPRIL 2.5 MG TAB PO SCH (09:12)
[2017-04-19] MEDS: CEROVITE ADV FORMULA TAB PO SCH (09:12)
[2017-04-19] MEDS: VENLAFAXINE HCL XR 75 MG CAPXR PO SCH (09:12)
[2017-04-19] MEDS: TRAMADOL HCL 50 MG TAB PO PRN (09:12)
[2017-04-19] MEDS: CLOPIDOGREL BISULFATE 75 MG TAB PO SCH (09:12)
[2017-04-19] MEDS: ASPIRIN 81 MG ECTAB PO SCH (09:12)
[2017-04-19] MEDS: CARVEDILOL 6.25 MG TAB PO SCH ×2 (09:12→18:29)
[2017-04-19] MEDS: ETHACRYNIC ACID 25 MG TAB PO SCH ×2 (09:13→17:00)
[2017-04-19] MEDS: PAROXETINE 20 MG TAB PO SCH (09:13)
[2017-04-19] MEDS: ENOXAPARIN 40 MG/0.4 ML SYR SQ SCH (09:14)
[2017-04-19] MEDS: OXYBUTYNIN CHLORIDE 5 MG TAB PO SCH (09:14)
[2017-04-19] MEDS: MAGNESIUM OXIDE 400 MG TAB PO SCH (09:14)
[2017-04-19] MEDS: INSULIN ASPART 100 UNITS/ML 3 ML PEN SQ SCH ×3 (09:19→18:29)
[2017-04-19] MEDS: MAGNESIUM SULFATE 1GM / D5W 1 GM in PREMIXED IN D5W 100 ML IV SCH ×3 (11:09→13:12)
[2017-04-19] MEDS ORDERED: [UNRECOGNIZED DRUG - CODE] PO (12:22)
[2017-04-19] MEDS ORDERED: ETHACRYNIC ACID 25 MG TAB PO SCH (14:30)
[2017-04-19] MEDS ORDERED: SPIR25TA PO (14:32)
[2017-04-19] MEDS ORDERED: MCRK20 PO (14:39)
[2017-04-19] MEDS ORDERED: MGNO400 PO (14:39)
--- NOTE | 2017-04-19 14:39 | Discharge Instructions ---
Discharge Instructions Date of Service Apr 19, 2017. Admission Reason for Admission: Systolic Congestive Heart Failure Discharge Discharge Diagnosis / Problem: Systolic Congestive Heart Failure Discharge Goals Goal(s): Decrease discomfort, Improve function, Increase independence Activity Recommendations Activity Limitations: resume your previous activity . Instructions / Follow-Up Instructions / Follow-Up Heart Failure and Fluid Retention: - You will be started on a new water pill and your pharmacy will have to order this. - You will be sent home with this medication from the hospital to take ONCE A DAY until you get your prescription from [facility] and will take this twice a day - Your Spironolactone was increased to 25 mg twice a day - YOU WILL STOP YOUR HCTZ...THIS IS A BLOOD PRESSURE MEDICINE WITH A WATER PILL COMPONENT - You may resume all your other medications as previous prescribed. Unless stated above. - PLEASE DO NOT WAIT UNTIL YOU GAIN 40+ OF WATER WEIGHT. PLEASE CALL YOUR DOCTOR IF YOU NOTICE 3-5 LBS IN ONE DAY. WEIGH YOURSELF EVERY DAY Diabetes: - Your A1c is improving from 13 down to 10 which shows you are getting better control of your diabetes - In the hospital you were on a strict low-carb diet and had low sugars on your normal dosing of Toujeo. - Please keep your appointment with Endocrinology on May 09. - Please keep track of your sugars over the next few day. A prescription was given for more strips and lancets - If you sugars run how they normally do you can continue Toujeo at 80 units a day with your short acting insulin with meals --- IF THEY ARE STILL RUNNING LOW... -- TAKE TOUJEO 40 UNITS DAILY WITH YOUR SHORT ACTING INSULIN WITH MEALS - Recommend to follow a low-carbohydrate meal to help control your diabetes. Also recommend a low-sodium diet to reduce complications with fluid retention. Call your Primary Care doctor if any of the following symptoms or problems start or get worse: * Shortness of breath or difficulty breathing * Wake up at night short of breath * Chest pain * Cough * Swelling of your hands, feet, or legs * More fatigued or tired with your normal activity * Palpitations - sudden fast heart beats WEIGHT * Weigh yourself every morning after using the bathroom. * Use the same scale. * Wear the same amount of clothing. * Write your weight down on a chart. * Call your Primary Care doctor if you gain more than 2-3 pounds in 1-2 days. MEDICATIONS * Use this discharge instruction sheet for medication instructions. * Take your medications at the time your doctor ordered. * Do not skip a dose of your medicines. * If you miss a dose of medicine, take it as soon as possible, but DO NOT DOUBLE A DOSE. * Read your medicine information when you get home. * Know all of the side effects of your medicine. If in doubt, ask your pharmacist * Call your Primary Care doctor's office if you have any side effects. * Be sure all of your doctors know what medicine and herbs you take (including cold, flu, and herbal medicine). Take the following with you to your follow-up doctor appointments: * Weight Chart * Medication List * List of questions Do not drink excessive alcohol, beer or wine. Current Hospital Diet Patient's current hospital diet: Low Sodium Diet (2gm Na), Diabetes Type 2 Diet Discharge Diet Recommended Diet: Low Sodium Diet (2gm Na), Diabetes Type 2 Diet Pending Studies Studies pending at discharge: no Laboratory Results Hemoglobin A1c Test 04/13/17 15:40 Range/Units Estimated Average Glucose 263 mg/dl Hemoglobin A1c 10.8 H 4.5-5.6 % Medical Emergencies . Who to Call and When: Call 911 or go to the Emergency Room if: * If at any time you feel your situation is an emergency * You have tightness or pain in your chest that does not go away with rest or Nitroglycerin * You are very short of breath even with rest . Non-Emergent Contact Non-Emergency issues call your: Primary Care Provider Call Non-Emergent contact if: you have a fever, your pain is concerning you, you have any medication questions . . "Provider Documentation" section prepared by Halley Caraballo. . VTE Core Measure Inpt VTE Proph given/why not?: Enoxaparin (Lovenox)SQ
[2017-04-19 17:10] VITALS: BP 142/75; PULSE 93; TEMP 37; O2SAT 93
--- NOTE | 2017-04-19 18:29 | Discharge Summary ---
Discharge Summary Date of Service Apr 19, 2017. Discharge Summary Admission Date: Apr 15, 2017 at 08:19 Discharge Date: Apr 19, 2017 Discharge Disposition: Home with services Principal Diagnosis: Acute on Chronic Systolic/Diastolic CHF Problems/Secondary Diagnoses: 1. Asthma vs COPD 2. Chronic Back Pain 3. CAD 4. Systolic and Diastolic CHF 5. acute kidney injury/failure - due to diuresis 6. Depression 7. T2DM 8. HLD 9. GERD 10. HTN 11. Hypothyroidism 12. Ischemic Cardiomyopathy 13. KAVIN 14. Vitamin D Deficiency 15. Hypomagnesemia 16. +troponin due to type 2 WI (myocardial demand ischemia from acute CHF) Immunizations: Have You Had Influenza Vaccine: No History of Tetanus Vaccine?: Yes Tetanus Immunization Date: Mar 27, 2009 History of Pneumococcal: Yes Pneumococcal Date: Mar 27, 2011 History of Hepatitis B Vaccine: Unknown Procedures: CHEST ONE VIEW PORTABLE FINDINGS: There are postsurgical changes of a midline sternotomy. The heart is enlarged. There is diffuse elevation of the interstitium consistent with congestive failure/fluid overload. There is no lobar consolidation. There are no significant pleural effusions.[ IMPRESSION: Cardiomegaly and radiographic evidence of congestive failure/fluid overload. R KNEE 4 OR MORE VIEWS FINDINGS: There is mild medial and patellofemoral joint space narrowing with marginal spurring noted about the patella. No acute fracture or subluxation. Trace joint effusion suspected. There is moderate soft tissue swelling about the knee. There is spurring of the tibial tuberosity. Peripheral vascular disease. IMPRESSION: 1. Trace joint effusion without acute fracture or subluxation. 2. Moderate soft tissue swelling about the knee. 3. Peripheral vascular disease. KUB FINDINGS: The bowel gas pattern is non-obstructive. Moderate stool volume is seen throughout the ascending and transverse colon. There is no organomegaly. No renal calculi. No ureteral calculi. No pneumoperitoneum or pneumatosis. Mild to moderate degenerative changes of the bilateral hips. Multilevel degenerative changes of the spine with mild levoscoliosis. IMPRESSION: 1. Nonobstructive bowel gas pattern. 2. Moderate stool volume of the ascending and transverse colon. Echocardiogram: * -- Conclusions -- * The left ventricle is mildly dilated. * Left ventricular systolic function is moderate to severely reduced. * There is severe global hypokinesis of the left ventricle. * The right ventricular systolic function is reduced as assessed by tricuspid annular plane systolic excursion (TAPSE) (TAPSE <1.6 cm). * The left atrium is moderately dilated. * There is mild mitral regurgitation. * Right ventricular systolic pressure is elevated at 40-50mmHg. * Compared to a study from 03/2016, the LV systolic function is slightly worsse Consultations: 1. Cardiology 2. PT/OT Medication Reconciliation New Medications: Potassium Chloride (Klor-Con M20) 20 Meq Tabcr 20 MEQ PO DAILY for 30 Days, #30 TABS Ethacrynic Acid (Edecrin) 25 Mg Tab 50 MG PO BID17 for 30 Days, #120 TAB Magnesium Oxide (Magnesium-Oxide) 400 Mg Tab 400 MG PO BID for 30 Days, #60 TAB Changed Medications: Spironolactone (Aldactone) 25 Mg Tab 25 MG PO BID for 30 Days, #60 TAB (Changed from: QAM) Continued Medications: Albuterol Sulf (Albuterol Sulfate) 2.5 Mg/3 Ml Nebu 1 VIAL NEB Q4-6HRS PRN for Wheezing Albuterol Sulfate (Proair Respiclick) 108 Mcg/Act Aer 2 PUFFS INH Q4-6H PRN for Shortness of Breath Aspirin (Aspirin Dr) 81 Mg Tab 81 MG PO DAILY Carvedilol (Coreg) 3.125 Mg Tab 6.25 MG PO BIDM, TAB Clopidogrel Bisulfate (Clopidogrel) 75 Mg Tab 75 MG PO DAILY Ergocalciferol (Vitamin D 89474 Unit) 50,000 Unit Cap 18739 INTER.UNIT PO WK, CAP ON TUESDAYS Famotidine (Pepcid) 20 Mg Tab 20 MG PO QPM Insulin Glargine (Toujeo Solostar) 300 Unit/Ml Inj 80 SQ QHS Insulin Lispro (Human) (Humalog Kwikpen) 100 Unit/Ml Inj 26 UNITS SQ WM 26 UNITS PLUS SLIDING SCALE Levothyroxine Sodium (Levothyroxine Sodium) 150 Mcg Tab 150 MCG PO QAM Lisinopril (Lisinopril) 2.5 Mg Tab 2.5 MG PO DAILY Mirtazapine (Remeron) 30 Mg Tab 30 MG PO HS, TAB Multiple Vitamins W/ Minerals (Multi For Her 50+) 1 Cap Cap 1 CAP PO DAILY Oxybutynin Chloride (Ditropan) 5 Mg Tab 5 MG PO BID, TAB Paroxetine (Paroxetine HCl) 20 Mg Tab 20 MG PO DAILY Pramipexole Dihydrochloride (Pramipexole Dihydrochlori) 0.75 Mg Tab 0.75 MG PO QPM Pregabalin (Lyrica) 150 Mg Cap 150 MG PO QAM, CAP Pregabalin (Lyrica) 150 Mg Cap 300 MG PO HS, CAP Tramadol (Ultram) 50 Mg Tab 50 MG PO Q8 PRN for Pain, TAB Venlafaxine Hcl (Effexor Extended Rel) 75 Mg Capcr 75 MG PO QAM Venlafaxine Hcl (Effexor Extended Rel) 150 Mg Capcr 150 MG PO QPM Discontinued Medications: Hydrochlorothiazide (Hctz) 25 Mg Tab 25 MG PO DAILY Discharge Exam Review of Systems: Constitutional: No fever, No chills ENT: No nasal symptoms, No sore throat Respiratory: + dyspnea on exertion (improving), No cough, No dyspnea at rest Cardiovascular: No chest pain Abdomen: No pain, No nausea, No vomiting, No diarrhea, No constipation Musculoskeletal: + swelling (b/l lower extremities - improving), No calf pain Genitourinary - Female: No dysuria Neurologic: No numbness/tingling, No balance problems Hematologic / Lymphatic: No abnormal bleeding/bruising Physical Exam: General Appearance: WD/WN, no apparent distress, + obese (central obesity) Eyes: sclerae normal ENT: hearing grossly normal Neck: supple, no JVD, trachea midline Respiratory/Chest: lungs clear, normal breath sounds, no respiratory distress, no accessory muscle use, + crackles (fine in bases b/l) Cardiovascular: regular rate, rhythm Abdomen / GI: normal bowel sounds, non tender, soft, + pertinent finding ( abdominal circumference appears reduced) Extremities: + swelling (trace to 1+ pitting edema up to knees b/l) Neurologic/Psychiatric: alert, oriented x 3 Skin: normal color, warm/dry Hospital Course ADMISSION: The patient is a very pleasant 66-year-old female who has known longstanding chronic systolic and diastolic CHF. She notes at least over the last month, possibly more than that she has been gaining weight, probably at least 40 pounds with swelling in her legs and chest wall, shortness of breath, shortness of breath with exertion; however, none of it has been too extreme, so she has been trying to take care of herself at home. Finally, today predominantly from the weak legs and dyspnea on exertion, she reached her own personal "enough is enough" factor and came to the ER for further evaluation. She does not have much dyspnea at rest. She notes actually as far back as 3-4 weeks ago during a mammogram that was commented that she had a lot of body wall edema and she has been eating predominantly [place] food and microwave meals, not really aware of sodium content or how that would affect her fluid retention. On top of all of that because of an anaphylactic type reaction to Lasix, she is on hydrochlorothiazide and spironolactone as her home diuretic regimen. She came to the ER for further evaluation and treatment. HOSPITAL COURSE: Ms. Marsh was admitted for acute on chronic mixed systolic/diastolic CHF. She was diuresed for approximately 30 lbs. Surprisingly she was not as symptomatic as one would expect. 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 4 weeks ago) current weight of 248 - Echo - EF 25-30%; severe global hypokinesis; reduced R venticular systolic function; R systolic pressures 40-50 mmHg - Increased Spironolactone to 25 mg BID and will continue Ethacrynic Acid 50 mg BID initially and can be tapered pending response - will F/U with CHF clinic and cardiology -- Prior authorization obtained and co-pay for this medication approx. $4/ month - HCTZ has been stopped due to addition of an additional diuretic - Continue ASA, Plavix, and Coreg - Cardiology following - recommends that she continue on Ethacrynic Acid and stop HCTZ - given her cardiomyopathy the plan is for discussion of possible ICD placement TARIQ: - Likely multifactorial between her cardiomyopathy, Obesity, and pulmonary HTN - continues to appropriately oxygenate on RA T2DM with Hypoglycemia: - A1c showing improvement from 13 to 10 - had multiple episodes of hypoglycemia during admission when utilizing home dosing -- Suspect this was because of strict carb monitoring and portion control as patient reports she is non-compliant with a diabetic diet "I eat when I am hungry and just eat carbs" - Recommended for her to check her sugars (states she is not always compliant and gave Rx for strips/lancets) and if her sugars are high to continue her Toujeo at 80 units with short acting insulin for meals -- If sugars stay low recommended to initially just use Toujeo 40 units in addition to short-acting meal coverage - She will follow-up with Endocrinology on Disposition: - PT/OT evaluations - recommended home with wheeled walker - and RX provided - Plan to return home with [facility] Attending Discharge note & Attestation: Pt seen/examined, chart reviewed, discharge care plan d/w LULI Caraballo. I agree w/ the boswell components of her discharge documentation. 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 This was associated with TARIQ, orthopnea, LE edema, etc. CXR was c/w pulmonary edema. Had repeat echo this admission showing EF 25-30%. Cardiology provided assistance in her care. Due to lasix allergy (anaphylaxis) IV & PO ethacrynic acid was used for diuresis. Her aldactone was increased to 25mg BID as well. During her stay she had weight loss of about 25 pounds. Electrolytes were supplemented as needed. At discharge she will take 50mg BID of ethacrynic acid along with aldactone 25mg BID. HCTZ has been d/c. She was counseled on the importance of daily weights. Discharge exam - gen - NAD neck - mild JVD heart - RRR, s1, s2 lungs - mild/faint bibasilar rales, no wheeze, no increased work of breathing abd - soft, obese ext - trace edema b/l f/u with PCP, cardiology, and pulmonary have been arranged Sabino George MD Total Time Spent: Greater than 30 minutes This includes examination of the patient, discharge planning, medication reconciliation, and communication with other providers. Discharge Instructions Please refer to the electronic Patient Visit Report (Discharge Instructions) for additional information. Follow-Up 1. Shelly Gardiner PA-C on TuesdayApril 22 at 9:30 am. 2. Yolanda Higgins [facility] - on TuesdayApril 25 at 2:[address] Zimmerman - [facility]monary - April 28 at 11:30 am. Additional Copies To RV. Gerard MD; Shelly Gardiner PA-C; Renetta Matos., CHANDRA; Yolanda Higgins ., PA-C
== END 2017-04-19 19:16 | disposition home health service (06) | DRG 292 ==
LOC: C.EDB 15:05 → C.2E 16:46 → ENRESERV 17:10 → OBSVTOIN 04-15 08:19 → ENRESERV 04-17 17:00 → C.MSN 04-17 17:19
PROVIDERS: ADMIT Family Medicine; ATTEND Internal Medicine
DX: I11.0 Hypertensive heart disease with heart failure (principal); I24.8 Other forms of acute ischemic heart disease; Z68.41 Body mass index [BMI] 40.0-44.9, adult; N17.9 Acute kidney failure, unspecified; I50.43 Acute on chronic combined systolic (congestive) and diastolic (congestive) heart failure; E11.9 Type 2 diabetes mellitus without complications; Z79.4 Long term (current) use of insulin; J44.9 Chronic obstructive pulmonary disease, unspecified; I25.5 Ischemic cardiomyopathy; F32.9 Major depressive disorder, single episode, unspecified; E03.9 Hypothyroidism, unspecified; E55.9 Vitamin D deficiency, unspecified; G47.33 Obstructive sleep apnea (adult) (pediatric); E83.42 Hypomagnesemia; E66.01 Morbid (severe) obesity due to excess calories; Z88.0 Allergy status to penicillin; Z87.891 Personal history of nicotine dependence; I27.20 Pulmonary hypertension, unspecified

== ENCOUNTER → 2017-04-22 | Outpatient (CLI) | payer OTHER ==
[~2017-04-22] MED LIST changes: -HYDR25TA4 PO; +MCRK20 PO; +MGNO400 PO; +[UNRECOGNIZED DRUG - CODE] PO
[2017-04-22 12:07] LABS: BASO % 0.4 %; BASO ABS # 0.04 K/uL (0-0.2); EOS % 1.8 %; EOS ABS # 0.17 K/uL (0-0.5); HEMATOCRIT 36.2 % (37-47); HEMOGLOBIN 11.2 g/dL (12.0-16.0); IG# 0.03 K/uL (0.00-0.02); LYMPH % 32.2 %; LYMPH ABS # 3.06 K/uL (1.2-3.4); MEAN CELL VOLUME 86.4 fL (80-100); MEAN CORPUSCULAR HEMOGLOBIN 26.7 pg (25-34); MEAN CORPUSCULAR HGB CONC 30.9 g/dl (32-36); MEAN PLATELET VOLUME 11.5 fL (7.4-10.4); MONO % 10.2 %; MONO ABS # 0.97 K/uL (0.11-0.59); NEUT % 55.1 %; NEUT ABS # 5.24 K/uL (1.4-6.5); PLATELET COUNT 217 K/uL (130-400); RED CELL DISTRIBUTION WIDTH SD 47.7 fL (36.4-46.3); WHITE BLOOD COUNT 9.51 K/uL (4.8-10.8)
[2017-04-22 12:20] LABS: ALBUMIN 3.2 gm/dl (3.4-5.0); ALT/SGPT 32 U/L (12-78); BLOOD UREA NITROGEN 36 mg/dl (7-18); CALCIUM 9.5 mg/dl (8.5-10.1); CARBON DIOXIDE 34 mmol/L (21-32); CREATININE 1.37 mg/dl (0.60-1.20); GLUCOSE 100 mg/dl (70-99); POTASSIUM 3.8 mmol/L (3.5-5.1); SODIUM 138 mmol/L (136-145)
[2017-04-22 12:23] LABS: ALKALINE PHOSPHATASE 87 U/L (45-117); AST/SGOT 17 U/L (15-37); TOTAL PROTEIN 6.7 gm/dl (6.4-8.2)
== END | disposition home or self-care (01) ==
LOC: C.LAB1850 10:28
PROVIDERS: ATTEND Physician Assistant
DX: E87.5 Hyperkalemia (principal); E83.42 Hypomagnesemia

== ENCOUNTER → 2017-05-19 | Outpatient (CLI) | payer OTHER ==
[~2017-05-19] MED LIST changes: +CARV6.252 PO; +ETHA1TAB3 PO; +MAGN400T6 PO; -PRAM0.754 PO; +PRAM0.757 PO; +PROAIR INH
[2017-05-19 12:21] LABS: HEMATOCRIT 34.9 % (37-47); HEMOGLOBIN 10.9 g/dL (12.0-16.0); MEAN CELL VOLUME 80.4 fL (80-100); MEAN CORPUSCULAR HEMOGLOBIN 25.1 pg (25-34); MEAN CORPUSCULAR HGB CONC 31.2 g/dl (32-36); MEAN PLATELET VOLUME 11.1 fL (7.4-10.4); PLATELET COUNT 191 K/uL (130-400); RED CELL DISTRIBUTION WIDTH CV 15.2 % (11.5-14.5); RED CELL DISTRIBUTION WIDTH SD 44.9 fL (36.4-46.3); WHITE BLOOD COUNT 9.38 K/uL (4.8-10.8)
[2017-05-19 12:31] LABS: HEMOGLOBIN A1C 9.6 % (4.5-5.6)
[2017-05-19 12:32] LABS: INR 1.2 (0.9-1.1); PTT PATIENT 26.6 SECONDS (21.0-31.0)
[2017-05-19 12:48] LABS: BLOOD UREA NITROGEN 59 mg/dl (7-18); CALCIUM 9.3 mg/dl (8.5-10.1); CARBON DIOXIDE 32 mmol/L (21-32); CREATININE 1.73 mg/dl (0.60-1.20); GLUCOSE 125 mg/dl (70-99); POTASSIUM 4.6 mmol/L (3.5-5.1); SODIUM 139 mmol/L (136-145)
== END | disposition home or self-care (01) ==
LOC: C.LAB1850 11:27
PROVIDERS: ATTEND Internal Medicine Clinical Cardiac Electrophysiology
DX: E11.8 Type 2 diabetes mellitus with unspecified complications (principal); E03.9 Hypothyroidism, unspecified; Z01.818 Encounter for other preprocedural examination; E66.9 Obesity, unspecified

== ENCOUNTER 2017-05-28 15:10 | Emergency (ER) | payer OTHER ==
[~2017-05-28] VITALS: Ht 167.6 cm; Wt 102.3 kg
[~2017-05-28 15:10] MED LIST changes: -ASPI81TA85 PO; -CARV6.252 PO; -DTR/5 PO; -EFFSR150 PO; -EFFSR75 PO; -ERGO500037 PO; -ETHA1TAB3 PO; -FAMO20TA9 PO; -LEVO150T9 PO; -LSN25 PO; -MAGN400T6 PO; -MULT1CAP7 PO; -PLV75 PO; -PREG150C PO; -PROAIR INH; -PXL20 PO
[2017-05-28] MEDS ORDERED: FENTANYL CITRATE INJ 50 MCG/1 ML 2 ML VIAL IV PRN (15:15)
[2017-05-28] MEDS ORDERED: SODIUM CHLORIDE 0.9% 1000ML 1,000 ML IV STA (15:15)
[2017-05-28] MEDS ORDERED: ONDANSETRON INJ 2 MG/ML 2 ML VIAL IV STA (15:15)
--- NOTE | 2017-05-28 15:18 | EMERGENCY ROOM VISIT NOTE ---
History Report prepared by Annmarie: Martha Brennan Under the Supervision of: Dr. Eliazar Lobo D.O. First contact with patient: 15:09 Stated Complaint: FALL/ R HIP PAIN History of Present Illness The patient is a 66 year old female who presents to the Emergency Room with complaints of constant right hip pain beginning two days ago. Per EMS, the patient had an episode of a fall onto her right side out of bed occurring two days ago. The patient states laid down on the couch this morning and was unable to get back up. The patient describes her pain as stabbing. Presently, the patient rates her pain as a 4/10. She notes some right shoulder pain but denies any back pain. Source of History: patient Onset: two days ago Position: other (right hip) Quality: other (pain) Timing: constant Associated Symptoms: No back pain Review of Systems See HPI for pertinent positives & negatives. A total of 10 systems reviewed and were otherwise negative. Past Medical & Surgical Medical Problems: (1) BLANCA (acute kidney injury) (2) Asthma (3) Benign hypertension (4) Dehydration (5) Diabetes mellitus (6) Diabetic foot infection (7) GERD (gastroesophageal reflux disease) (8) Hyperglycemia (9) Hyperlipidemia (10) Hypomagnesemia (11) Influenza A with pneumonia (12) Pneumonia (13) Pneumonia involving right lung (14) Systolic congestive heart failure (15) UTI (urinary tract infection) Family History No pertinent family history Social History Marital Status: single Housing Status: lives alone Current/Historical Medications Scheduled Aspirin (Aspirin Dr), 81 MG PO DAILY Carvedilol (Coreg), 6.25 MG PO BID Clopidogrel Bisulfate (Clopidogrel), 75 MG PO DAILY Ergocalciferol (Vitamin D 01018 Unit), 50,000 INTER.UNIT PO WK Ethacrynic Acid (Edecrin), 50 MG PO BID Famotidine (Pepcid), 20 MG PO QPM Insulin Glargine (Toujeo Solostar), 68 SQ QHS Insulin Lispro (Human) (Humalog Kwikpen), 20 UNITS SQ WM Levothyroxine Sodium (Levothyroxine Sodium), 150 MCG PO QAM Lisinopril (Lisinopril), 2.5 MG PO DAILY Magnesium Oxide (Mag-Ox), 400 MG PO BID Mirtazapine (Remeron), 30 MG PO HS Multiple Vitamins W/ Minerals (Multi For Her 50+), 1 CAP PO DAILY Oxybutynin Chloride (Ditropan), 5 MG PO BID Paroxetine (Paroxetine HCl), 20 MG PO DAILY Potassium Chloride (Klor-Con M20), 20 MEQ PO DAILY Pramipexole Dihydrochloride (Pramipexole Dihydrochlori), 0.75 MG PO QPM Pregabalin (Lyrica), 150 MG PO QAM Pregabalin (Lyrica), 300 MG PO HS Spironolactone (Aldactone), 25 MG PO BID Venlafaxine Hcl (Effexor Extended Rel), 75 MG PO QAM Venlafaxine Hcl (Effexor Extended Rel), 150 MG PO QPM Scheduled PRN Albuterol Sulf (Albuterol Sulfate), 1 VIAL NEB Q4-6HRS PRN for Wheezing Tramadol (Ultram), 50 MG PO Q8 PRN for Pain [Proair], 2 PUFF INH Q4 PRN for SOB/Wheezing Allergies Coded Allergies: Clindamycin (Verified Allergy, Severe, RASH, DELUSIONAL, CONVULSIONS, 04/13) Eggs or Egg-derived Products (Verified Allergy, Severe, ANAPHYLAXIS, ) NO FLU VAC. Note: 04/05/12, pt ate eggs for breakfast, dietary requested that pharmacy add egg food allergy. aj Furosemide (Verified Allergy, Severe, ANAPHYLAXIS, 04/13/17) Rosuvastatin (Unverified Allergy, Severe, LEG WEAKNESS, 04/13/17) Simvastatin (Unverified Allergy, Severe, LEG WEAKNESS, 04/13/17) Sulfamethoxazole w/Trimethoprim (Verified Allergy, Intermediate, RASH, ) Amoxicillin (Verified Allergy, Unknown, ., 04/13/17) Atorvastatin (Verified Allergy, Unknown, acute renal failure, 04/13/17) Clavulanic Acid (Verified Allergy, Unknown, ., 04/13/17) Egg (Verified Allergy, Unknown, _, 04/13/17) 04/05/12: ADDED PER DIETARY REQUEST. Latex1 -Allergic Contact Dermititis (Verified Allergy, Unknown, RASH, 04/13) Penicillins (Verified Allergy, Unknown, unknown, 04/13/17) Triamcinolone (Verified Allergy, Unknown, RASH, 04/13/17) Diclofenac (Verified Adverse Reaction, Severe, SKIN SLOTHED FROM HEEL, ) Isopropyl Alcohol (Verified Adverse Reaction, Severe, SKIN SLOTHED FROM HEEL, 04/13/17) Propylene Glycol (Verified Adverse Reaction, Severe, SKIN SLOTHED FROM HEEL, 04/13/17) Acetaminophen (Verified Adverse Reaction, Mild, VOMITING, 04/13/17) Physical Exam Vital Signs Date Time Temp Pulse Resp B/P (MAP) Pulse Ox O2 Delivery O2 Flow Rate FiO2 05/28/17 19:30 93 22 118/60 96 Room Air 05/28/17 17:26 94 20 102/59 98 Room Air 05/28/17 16:51 91 22 145/69 97 Room Air 05/28/17 16:51 92 05/28/17 16:02 86 05/28/17 15:25 36.9 90 18 136/69 98 Room Air Physical Exam GENERAL: Patient is awake, alert, and in no acute distress. Patient is anxious and uncomfortable appearing. EYES: The conjunctivae are clear. The pupils are round and reactive. EARS, NOSE, MOUTH AND THROAT: The nose is without any evidence of any deformity. Mucous membranes are dry tongue is midline NECK: The neck is nontender and supple. RESPIRATORY: Normal respiratory effort is noted there is no evidence of wheezing rhonchi or rales CARDIOVASCULAR: Regular rate and rhythm noted there no murmurs rubs or gallops normal S1 normal S2 GASTROINTESTINAL: The abdomen is soft. Bowel sounds are present in all quadrants. Abdomen is nontender BACK: No midline tenderness or or step-off noted range of motion in flexion extension as well as rotation no signs of muscle spasm noted MUSCULOSKELETAL/EXTREMITIES:Pain with ROM of right shoulder, no deformity. Pain with ROM of right hip, mild internal rotation noted. SKIN: There is no obvious evidence of any rash. There are no petechiae, pallor or cyanosis noted. NEUROLOGIC: Patient is awake alert and oriented x3 Medical Decision & Procedures ER Provider Diagnostic Interpretation: Radiology results as stated below per my review and radiologist interpretation: CHEST ONE VIEW PORTABLE FINDINGS: Median sternotomy wires and bypass graft rings noted as well as a few mediastinal surgical clips. Cardiac silhouette moderately enlarged, unchanged. Lungs and pleural spaces clear. Degenerative changes of the thoracic spine. Multiple anchors noted in the right humeral head. IMPRESSION: 1. Cardiomegaly without evidence of acute cardiopulmonary disease. Electronically signed by: Larissa Dukes PELVIS/UNILATERAL HIP 2-3VIEWS FINDINGS: Osteopenia suspected. Sacroiliac joints, pubic symphysis, and hip joints congruent. Bony pelvis intact. No femoral neck fracture. Mild degenerative changes of the right hip joint may be present though joint space is preserved. Degenerative changes of the lower lumbar spine suggested. IMPRESSION: No acute osseous injury of the pelvis or right hip. Electronically signed by: Larissa Dukes SHOULDER MIN 2 VIEWS ROUTINE FINDINGS: Multiple anchors noted in the right humeral head. Glenohumeral and acromioclavicular joints congruent. Slight deformity of the posterior lateral aspect of the humeral head could suggest prior Hill-Sachs lesion. Osteopenia suggested. No convincing evidence of acute fracture or malalignment. No subluxation of the humeral head. IMPRESSION: No acute osseous injury of the right shoulder. Electronically signed by: José Miguel Drake M.D. HEAD WITHOUT CONTRAST (CT) FINDINGS: Emanations Analysis Technician topogram: Median sternotomy wires and bypass graft rings. Ventricles and sulci normal in size. Brain parenchyma normal in appearance with preserved quinones-white differentiation. No mass effect or midline shift. No hemorrhage or acute territorial infarct. No extra-axial fluid collection. Evidence of chronic sinusitis with postsurgical changes of right maxillary antrostomy. Calvarium intact. IMPRESSION: 1. No acute intracranial abnormality. Electronically signed by: José Miguel Drake M.D. CERVICAL SPINE W/O FINDINGS: Emanations Analysis Technician topogram: Unremarkable. Normal cervical lordosis. No acute fracture or malalignment. Facet arthropathy at multiple levels. No significant osseous neural foraminal or spinal canal stenosis. Paraspinal musculature within normal limits. Atherosclerosis noted. Lung apices with mosaic attenuation and interlobular septal thickening. IMPRESSION: 1. No acute osseous injury of the cervical spine. 2. Mild multilevel degenerative changes without significant osseous neural foraminal or spinal canal stenosis. 3. Interlobular septal thickening and mosaic attenuation at the lung apices could suggest small airways disease or mild pulmonary edema. Consider chest x-ray if clinically indicated. Electronically signed by: José Miguel Drake M.D. PELVIS NO IV/ORAL CONT (CT) FINDINGS: Emanations Analysis Technician topogram: Unremarkable. Mild degenerative changes of the bilateral hip joints though joint spaces preserved. No femoral neck fracture. The bony pelvis is intact. Pubic symphysis and sacroiliac joints intact. No sacral fracture. Degenerative changes of the sacroiliac joints and lower lumbar spine. Intrapelvic contents demonstrate moderate stool burden. No bowel obstruction. Diverticulosis of the sigmoid colon. Drake catheter decompresses the urinary bladder. Extensive skin thickening and subcutaneous edema in the pannus of the anterior abdominal wall. Mild atrophy of the bilateral gluteus muscles. IMPRESSION: 1. No acute osseous injury of the pelvis. 2. Mild degenerative changes of the bilateral hips. Electronically signed by: José Miguel Drake M.D. R HIP-LOWER EXTREMITY WITHOUT FINDINGS: Emanations Analysis Technician topogram: Unremarkable. Right hip joint congruent. Minimal osteophytosis evident. Joint spaces preserved. No acute fracture or malalignment. Atherosclerosis. Infiltration of the subcutaneous tissue of the posterior medial thigh. No evidence of an intramuscular collection. Normal muscle bulk. IMPRESSION: 1. No acute osseous injury of the right hip. 2. Mild degenerative changes of the right hip. Electronically signed by: José Miguel Drake M.D. Laboratory Results 05/28/17 15:56 Red Blood Count 4.83, Mean Corpuscular Volume 79.5, Mean Corpuscular Hemoglobin 25.3, Mean Corpuscular Hemoglobin Concent 31.8, Mean Platelet Volume 11.0, Neutrophils (%) (Auto) 56.9, Lymphocytes (%) (Auto) 27.8, Monocytes (%) (Auto) 13.3, Eosinophils (%) (Auto) 1.4, Basophils (%) (Auto) 0.4, Neutrophils # (Auto ) 5.28, Lymphocytes # (Auto) 2.58, Monocytes # (Auto) 1.23, Eosinophils # (Auto ) 0.13, Basophils # (Auto) 0.04 05/28/17 15:56 Test 05/28/17 00:00 05/28/17 15:56 Urine Color YELLOW Urine Appearance CLEAR (CLEAR) Urine pH 5.0 (4.5-7.5) Urine Specific [place] 1.014 (1.000-1.030) Urine Protein 1+ (NEG) Urine Glucose (UA) NEG (NEG) Urine Ketones 2+ (NEG) Urine Occult Blood NEG (NEG) Urine Nitrite NEG (NEG) Urine Bilirubin NEG (NEG) Urine Urobilinogen NEG (NEG) Urine Leukocyte Esterase NEG (NEG) Urine WBC (Auto) 0 /hpf (0-5) Urine RBC (Auto) 0-4 /hpf (0-4) Urine Hyaline Casts (Auto) 1-5 /lpf (0-5) Urine Epithelial Cells (Auto) 5-10 /lpf (0-5) Urine Bacteria (Auto) NEG (NEG) White Blood Count 9.28 K/uL (4.8-10.8) Red Blood Count 4.83 M/uL (4.2-5.4) Hemoglobin 12.2 g/dL (12.0-16.0) Hematocrit 38.4 % (37-47) Mean Corpuscular Volume 79.5 fL (80-100) Mean Corpuscular Hemoglobin 25.3 pg (25-34) Mean Corpuscular Hemoglobin Concent 31.8 g/dl (32-36) Platelet Count 176 K/uL (130-400) Mean Platelet Volume 11.0 fL (7.4-10.4) Neutrophils (%) (Auto) 56.9 % Lymphocytes (%) (Auto) 27.8 % Monocytes (%) (Auto) 13.3 % Eosinophils (%) (Auto) 1.4 % Basophils (%) (Auto) 0.4 % Neutrophils # (Auto) 5.28 K/uL (1.4-6.5) Lymphocytes # (Auto) 2.58 K/uL (1.2-3.4) Monocytes # (Auto) 1.23 K/uL (0.11-0.59) Eosinophils # (Auto) 0.13 K/uL (0-0.5) Basophils # (Auto) 0.04 K/uL (0-0.2) RDW Standard Deviation 44.9 fL (36.4-46.3) RDW Coefficient of Variation 15.5 % (11.5-14.5) Immature Granulocyte % (Auto) 0.2 % Immature Granulocyte # (Auto) 0.02 K/uL (0.00-0.02) Anion Gap 14.0 mmol/L (3-11) Est Creatinine Clear Calc Drug Dose 69.3 ml/min Estimated GFR () 69.8 Estimated GFR (Non- 60.2 BUN/Creatinine Ratio 20.0 (10-20) Calcium Level 8.9 mg/dl (8.5-10.1) Total Bilirubin 0.8 mg/dl (0.2-1) Direct Bilirubin 0.3 mg/dl (0-0.2) Aspartate Amino Transf (AST/SGOT) 67 U/L (15-37) Alanine Aminotransferase (ALT/SGPT) 32 U/L (12-78) Alkaline Phosphatase 80 U/L (45-117) Troponin I 0.033 ng/ml (0-0.045) Total Protein 6.3 gm/dl (6.4-8.2) Albumin 3.3 gm/dl (3.4-5.0) Laboratory results per my review. Medications Administered Medications (Trade) Dose Ordered Sig/Frieda Route Start Time Stop Time Status Last Admin Dose Admin Sodium Chloride 1,000 ml @ 999 mls/hr Q1H1M STAT IV 05/28/17 15:15 05/28/17 16:15 DC 05/28/17 16:15 999 MLS/HR Ondansetron HCl (Zofran Inj) 4 mg NOW STAT IV 05/28/17 15:15 05/28/17 15:18 DC 05/28/17 16:15 4 MG Fentanyl Citrate (Fentanyl Inj) 50 mcg Q15M PRN IV 05/28/17 15:15 05/28/17 21:02 DC 05/28/17 16:15 50 MCG ECG Per My Interpretation Indication: weakness Rate (beats per minute): 90 Rhythm: normal sinus Findings: PAC, other (poor R-wave progression) Comparison ECG Date: 04/13/17 ED Course 1509: The patient was evaluated in room C4. A complete history and physical examination were performed. 1515: Ordered Fentanyl Inj 50 mcg IV, Zofran Inj 4 mg IV, NSS 1,000 ml @ 999 mls /hr IV. 1709: I updated the patient on her test results. The resource development manager is at bedside discussing possible options with the patient. 1740: Upon reevaluation, the patient is resting comfortably. I discussed the results and treatment plan with her. She verbalized agreement of the treatment plan. The patient was discharged home. Medical Decision Differential diagnosis: Etiologies such as fracture, dislocation, intra-abdominal, pneumothorax, intrathoracic , intracranial, neurologic, as well as other traumatic pathologies were entertained. Nursing notes reviewed. Additional history is obtained from the prehospital personnel. The patient is a 66-year-old female who presented to the emergency department after fall. It sounds of the patient lives at home with some supervision but is not a very good ambulatory subject. The patient had significant right hip pain and right shoulder pain. I discussed patient's laboratory and radiographic studies with her. No bony abnormality was noted. The patient was evaluated by the emergency department disease case manager. We tried to arrange home health as well as possible inpatient rehab. The patient wanted to think about these options. She was given medication for pain in the emergency department. I reevaluated the patient multiple times. She was feeling much better on subsequent reevaluation. Medication Reconcilliation Current Medication List: was personally reviewed by me Blood Pressure Screening Patient's blood pressure: Normal blood pressure Impression Primary Impression: Weakness Additional Impressions: Fall Contusion of right hip Contusion of right shoulder Dehydration Scribe Attestation The scribe's documentation has been prepared under my direction and personally reviewed by me in its entirety. I confirm that the note above accurately reflects all work, treatment, procedures, and medical decision making performed by me. Departure Information Dispostion Home / Self-Care Forms HOME CARE DOCUMENTATION FORM, IMPORTANT VISIT INFORMATION, WORK / SCHOOL INSTRUCTIONS Patient Instructions Bruises Contusions, Falls Prevent Home, My [facility] Additional Instructions Continue all medications as prescribed. Call your family doctor to schedule a follow-up appointment. Rest and avoid any strenuous activity. Return to the emergency department if symptoms worsen or if need arises. Problem Qualifiers Additional Impressions: Fall Encounter type: initial encounter Qualified Codes: W19.XXXA - Unspecified fall, initial encounter Contusion of right hip Encounter type: initial encounter Qualified Codes: S70.01XA - Contusion of right hip, initial encounter Contusion of right shoulder Encounter type: initial encounter Qualified Codes: S40.011A - Contusion of right shoulder, initial encounter
[2017-05-28] MEDS ORDERED: PXL20 PO (15:20)
[2017-05-28] MEDS ORDERED: EFFSR150 PO (15:20)
[2017-05-28] MEDS ORDERED: LSN25 PO (15:20)
[2017-05-28] MEDS ORDERED: EFFSR75 PO (15:20)
[2017-05-28] MEDS ORDERED: FAMO20TA9 PO (15:20)
[2017-05-28] MEDS ORDERED: PLV75 PO (15:20)
[2017-05-28 15:25] VITALS: TEMP 36.9; Ht 167.6 cm; Wt 102.3 kg
[2017-05-28] MEDS ORDERED: ERGO500037 PO (15:34)
[2017-05-28] MEDS ORDERED: MULT1CAP7 PO (15:36)
[2017-05-28] MEDS ORDERED: ASPI81TA85 PO (15:36)
--- NOTE | 2017-05-28 15:59 | DIAGNOSTIC IMAGING REPORT ---
CHEST ONE VIEW PORTABLE CLINICAL HISTORY: 66 years-old Female presenting with fall, right shoulder and right hip pain. TECHNIQUE: Portable upright AP view of the chest was obtained. COMPARISON: 04/13/2017. FINDINGS: Median sternotomy wires and bypass graft rings noted as well as a few mediastinal surgical clips. Cardiac silhouette moderately enlarged, unchanged. Lungs and pleural spaces clear. Degenerative changes of the thoracic spine. Multiple anchors noted in the right humeral head. IMPRESSION: 1. Cardiomegaly without evidence of acute cardiopulmonary disease. Electronically signed by: José Miguel Drake M.D. 05/28/2017 3:58 PM Dictated Date/Time: 05/28/2017 3:57 PM
--- NOTE | 2017-05-28 16:01 | DIAGNOSTIC IMAGING REPORT ---
R SHOULDER MIN 2 VIEWS ROUTINE CLINICAL HISTORY: 66 years-old Female presenting with fall. TECHNIQUE: External rotation, internal rotation, and transscapular Y views of the right shoulder were obtained. COMPARISON: None. FINDINGS: Multiple anchors noted in the right humeral head. Glenohumeral and acromioclavicular joints congruent. Slight deformity of the posterior lateral aspect of the humeral head could suggest prior Hill-Sachs lesion. Osteopenia suggested. No convincing evidence of acute fracture or malalignment. No subluxation of the humeral head. IMPRESSION: No acute osseous injury of the right shoulder. Electronically signed by: José Miguel Drake M.D. 05/28/2017 3:59 PM Dictated Date/Time: 05/28/2017 3:58 PM
--- NOTE | 2017-05-28 16:03 | DIAGNOSTIC IMAGING REPORT ---
R PELVIS/UNILATERAL HIP 2-3VIEWS CLINICAL HISTORY: 66 years-old Female presenting with fall. TECHNIQUE: Single frontal view of the pelvis and frontal and frog-leg lateral views of the right hip were obtained. COMPARISON: CT from 04/12/2016. FINDINGS: Osteopenia suspected. Sacroiliac joints, pubic symphysis, and hip joints congruent. Bony pelvis intact. No femoral neck fracture. Mild degenerative changes of the right hip joint may be present though joint space is preserved. Degenerative changes of the lower lumbar spine suggested. IMPRESSION: No acute osseous injury of the pelvis or right hip. Electronically signed by: José Miguel Drake M.D. 05/28/2017 4:02 PM Dictated Date/Time: 05/28/2017 4:00 PM
[2017-05-28 16:25] LABS: BASO % 0.4 %; BASO ABS # 0.04 K/uL (0-0.2); EOS % 1.4 %; EOS ABS # 0.13 K/uL (0-0.5); HEMATOCRIT 38.4 % (37-47); HEMOGLOBIN 12.2 g/dL (12.0-16.0); IG# 0.02 K/uL (0.00-0.02); LYMPH % 27.8 %; LYMPH ABS # 2.58 K/uL (1.2-3.4); MEAN CELL VOLUME 79.5 fL (80-100); MEAN CORPUSCULAR HEMOGLOBIN 25.3 pg (25-34); MEAN CORPUSCULAR HGB CONC 31.8 g/dl (32-36); MONO % 13.3 %; MONO ABS # 1.23 K/uL (0.11-0.59); NEUT % 56.9 %; NEUT ABS # 5.28 K/uL (1.4-6.5); PLATELET COUNT 176 K/uL (130-400); RED CELL DISTRIBUTION WIDTH CV 15.5 % (11.5-14.5); RED CELL DISTRIBUTION WIDTH SD 44.9 fL (36.4-46.3); WHITE BLOOD COUNT 9.28 K/uL (4.8-10.8)
--- NOTE | 2017-05-28 16:40 | DIAGNOSTIC IMAGING REPORT ---
HEAD WITHOUT CONTRAST (CT) CLINICAL HISTORY: 66 years-old Female presenting with fall. TECHNIQUE: Multidetector CT imaging of the head was performed without the use of intravenous contrast. IV contrast: None. A dose lowering technique was used consistent with the principles of ALARA (as low as reasonably achievable). COMPARISON: 04/04/2017. CT DOSE (mGy.cm): The estimated cumulative dose is 2521.[address] cervical spine.. FINDINGS: Veneer Grader topogram: Median sternotomy wires and bypass graft rings. Ventricles and sulci normal in size. Brain parenchyma normal in appearance with preserved quinones-white differentiation. No mass effect or midline shift. No hemorrhage or acute territorial infarct. No extra-axial fluid collection. Evidence of chronic sinusitis with postsurgical changes of right maxillary antrostomy. Calvarium intact. IMPRESSION: 1. No acute intracranial abnormality. Electronically signed by: José Miguel Drake M.D. 05/28/2017 4:38 PM Dictated Date/Time: 05/28/2017 4:36 PM
--- NOTE | 2017-05-28 16:42 | DIAGNOSTIC IMAGING REPORT ---
CERVICAL SPINE W/O CLINICAL HISTORY: 66 years-old Female presenting with fall. TECHNIQUE: Multidetector CT of the cervical spine was performed without the use of intravenous contrast. IV contrast: None. A dose lowering technique was used consistent with the principles of ALARA (as low as reasonably achievable). COMPARISON: Plain radiographs from 10/24/2015. CT DOSE (mGy.cm): The estimated cumulative dose is 2521.[address] scans. FINDINGS: Laboratory Cureman topogram: Unremarkable. Normal cervical lordosis. No acute fracture or malalignment. Facet arthropathy at multiple levels. No significant osseous neural foraminal or spinal canal stenosis. Paraspinal musculature within normal limits. Atherosclerosis noted. Lung apices with mosaic attenuation and interlobular septal thickening. IMPRESSION: 1. No acute osseous injury of the cervical spine. 2. Mild multilevel degenerative changes without significant osseous neural foraminal or spinal canal stenosis. 3. Interlobular septal thickening and mosaic attenuation at the lung apices could suggest small airways disease or mild pulmonary edema. Consider chest x-ray if clinically indicated. Electronically signed by: José Miguel Drake M.D. 05/28/2017 4:41 PM Dictated Date/Time: 05/28/2017 4:39 PM
[2017-05-28] MEDS ORDERED: LEVO150T9 PO (16:46)
--- NOTE | 2017-05-28 16:46 | DIAGNOSTIC IMAGING REPORT ---
PELVIS NO IV/ORAL CONT (CT) CLINICAL HISTORY: 66 years-old Female presenting with fall. TECHNIQUE: Multidetector CT of the pelvis was performed without the use of intravenous contrast. IV contrast: None. A dose lowering technique was used consistent with the principles of ALARA (as low as reasonably achievable). COMPARISON: CT of the abdomen and pelvis from 04/12/2016. CT DOSE (mGy.cm): The estimated cumulative dose is 2521.55 mGy.cm. FINDINGS: Supervisor Filling And Packing topogram: Unremarkable. Mild degenerative changes of the bilateral hip joints though joint spaces preserved. No femoral neck fracture. The bony pelvis is intact. Pubic symphysis and sacroiliac joints intact. No sacral fracture. Degenerative changes of the sacroiliac joints and lower lumbar spine. Intrapelvic contents demonstrate moderate stool burden. No bowel obstruction. Diverticulosis of the sigmoid colon. Drake catheter decompresses the urinary bladder. Extensive skin thickening and subcutaneous edema in the pannus of the anterior abdominal wall. Mild atrophy of the bilateral gluteus muscles. IMPRESSION: 1. No acute osseous injury of the pelvis. 2. Mild degenerative changes of the bilateral hips. Electronically signed by: José Miguel Drake M.D. 05/28/2017 4:45 PM Dictated Date/Time: 05/28/2017 4:41 PM
--- NOTE | 2017-05-28 16:54 | DIAGNOSTIC IMAGING REPORT ---
R HIP-LOWER EXTREMITY WITHOUT CLINICAL HISTORY: 66 years-old Female presenting with fall. TECHNIQUE: Multidetector CT of the right hip was performed without the use of intravenous contrast. IV contrast: None. A dose lowering technique was used consistent with the principles of ALARA (as low as reasonably achievable). COMPARISON: None. CT DOSE (mGy.cm): The estimated cumulative dose is 2521.55. FINDINGS: Batting Machine Operator topogram: Unremarkable. Right hip joint congruent. Minimal osteophytosis evident. Joint spaces preserved. No acute fracture or malalignment. Atherosclerosis. Infiltration of the subcutaneous tissue of the posterior medial thigh. No evidence of an intramuscular collection. Normal muscle bulk. IMPRESSION: 1. No acute osseous injury of the right hip. 2. Mild degenerative changes of the right hip. Electronically signed by: José Miguel Drake M.D. 05/28/2017 4:52 PM Dictated Date/Time: 05/28/2017 4:47 PM
[2017-05-28 17:01] LABS: ALBUMIN 3.3 gm/dl (3.4-5.0); CALCIUM 8.9 mg/dl (8.5-10.1); CREATININE 0.99 mg/dl (0.60-1.20); POTASSIUM 3.7 mmol/L (3.5-5.1)
[2017-05-28 17:06] LABS: TOTAL PROTEIN 6.3 gm/dl (6.4-8.2)
[2017-05-28] MEDS ORDERED: ETHA1TAB3 PO (17:28)
[2017-05-28] MEDS ORDERED: MCRK20 PO (17:28)
[2017-05-28] MEDS ORDERED: SPIR25TA PO (17:28)
[2017-05-28] MEDS ORDERED: CARV6.252 PO (17:28)
[2017-05-28] MEDS ORDERED: MAGN400T6 PO (17:28)
[2017-05-28] MEDS ORDERED: PROAIR INH (17:28)
[2017-05-28] MEDS ORDERED: DTR/5 PO (17:32)
[2017-05-28] MEDS ORDERED: PREG150C PO ×2 (17:42)
[2017-05-28 19:30] VITALS: BP 118/60; PULSE 93; O2SAT 96
== END 2017-05-28 20:47 | disposition home or self-care (01) ==
LOC: EDBD 15:10 → C.EDC 15:12
DX: S70.01XA Contusion of right hip, initial encounter (principal); S40.011A Contusion of right shoulder, initial encounter; W06.XXXA Fall from bed, initial encounter; E86.0 Dehydration; R53.1 Weakness; J45.909 Unspecified asthma, uncomplicated; E11.9 Type 2 diabetes mellitus without complications; K21.9 Gastro-esophageal reflux disease without esophagitis; E78.5 Hyperlipidemia, unspecified; Z87.01 Personal history of pneumonia (recurrent); I11.0 Hypertensive heart disease with heart failure; I50.20 Unspecified systolic (congestive) heart failure; Z87.440 Personal history of urinary (tract) infections; Z79.82 Long term (current) use of aspirin; Z79.899 Other long term (current) drug therapy; Z79.4 Long term (current) use of insulin; Z79.84 Long term (current) use of oral hypoglycemic drugs; Z88.1 Allergy status to other antibiotic agents; Z91.012 Allergy to eggs; Z88.2 Allergy status to sulfonamides; Z91.040 Latex allergy status; Z88.0 Allergy status to penicillin; Z88.8 Allergy status to other drugs, medicaments and biological substances

== ENCOUNTER 2017-06-13 18:21 | Inpatient (IN) | payer OTHER ==
[~2017-06-13] VITALS: Ht 165.1 cm; Wt 102.3 kg
[~2017-06-13 18:21] MED LIST changes: -ALBU18002 INH; +ASPI81TA85 PO; -CARV3.122 PO; +CARV6.252 PO; +DTR/5 PO; +EFFSR150 PO; +EFFSR75 PO; +ERGO500037 PO; +ETHA1TAB3 PO; +FAMO20TA9 PO; +LEVO150T9 PO; +LSN25 PO; +MAGN400T6 PO; -MGNO400 PO; +MULT1CAP7 PO; +PLV75 PO; +PREG150C PO; +PROAIR INH; +PXL20 PO; -[UNRECOGNIZED DRUG - CODE] PO
[2017-06-13] MEDS ORDERED: OPTIRAY 320 IV PRN (19:15)
--- NOTE | 2017-06-13 19:19 | EMERGENCY ROOM VISIT NOTE ---
History Report prepared by Annmarie: Yuriy Ro Under the Supervision of: Dr. Claude Teague M.D. First contact with patient: 18:47 Chief Complaint: FLU LIKE SX Stated Complaint: FLU LIKE SX History of Present Illness The patient is a 66 year old female who presents to the Emergency Room with complaints of persistent vomiting and diarrhea that began two days ago. The patient states that her diarrhea was nearly constant yesterday. She does have a cough, but notes that his is common at her baseline. The patient denies any urinary symptoms or dizziness. She admits that she has not been eating or drinking much recently due to her symptoms. The patient states that she was just discharged from [facility] on night, three days ago. She was placed in [facility] as it was decided she was not safe to go home alone after coming to the emergency department on May 26. Per her sister at bedside , the patient was supposed to get an AICD on May 26 but slept through the appointment. She stayed in [facility] for 15 days. The sister notes that during her say at [facility] she was very weak and delirious. The sister picked her up from [facility] on and she seemed very weak as she tried to take her into the house, but she did not have any diarrhea at this time. The sister believes she is much weaker currently that when she left [facility]. Source of History: patient Onset: Two days [employer] Position: abdomen Quality: other (Vomiting/Diarrhea) Timing: constant, other (persistent) Associated Symptoms: No urinary symptoms Review of Systems See HPI for pertinent positives and negatives. A total of ten systems were reviewed and were otherwise negative. Past Medical & Surgical Medical Problems: (1) BLANCA (acute kidney injury) (2) Asthma (3) Benign hypertension (4) Dehydration (5) Diabetes mellitus (6) Diabetic foot infection (7) GERD (gastroesophageal reflux disease) (8) Hyperglycemia (9) Hyperlipidemia (10) Hypomagnesemia (11) Influenza A with pneumonia (12) Pneumonia (13) Pneumonia involving right lung (14) Systolic congestive heart failure (15) UTI (urinary tract infection) Family History No pertinent family history Social History Smoking Status: Never Smoker Alcohol Use: none Drug Use: none Marital Status: single Housing Status: lives alone Occupation Status: retired Current/Historical Medications Scheduled Aspirin (Aspirin Dr), 81 MG PO DAILY Carvedilol (Coreg), 6.25 MG PO BID Clopidogrel Bisulfate (Clopidogrel), 75 MG PO DAILY Ergocalciferol (Vitamin D 63519 Unit), 50,000 INTER.UNIT PO WK Ethacrynic Acid (Edecrin), 50 MG PO BID Famotidine (Pepcid), 20 MG PO QPM Insulin Glargine (Toujeo Solostar), 80 UNITS SQ QHS Insulin Lispro (Human) (Humalog Kwikpen), 26 UNITS SQ WM Levothyroxine Sodium (Levothyroxine Sodium), 150 MCG PO QAM Lisinopril (Lisinopril), 2.5 MG PO DAILY Magnesium Oxide (Mag-Ox), 400 MG PO BID Mirtazapine (Remeron), 30 MG PO HS Multiple Vitamins W/ Minerals (Multi For Her 50+), 1 CAP PO DAILY Oxybutynin Chloride (Ditropan), 5 MG PO BID Paroxetine (Paroxetine HCl), 20 MG PO DAILY Potassium Chloride (Klor-Con M20), 20 MEQ PO DAILY Pramipexole Dihydrochloride (Pramipexole Dihydrochlori), 0.75 MG PO QPM Pregabalin (Lyrica), 150 MG PO QAM Pregabalin (Lyrica), 300 MG PO HS Spironolactone (Aldactone), 25 MG PO BID Venlafaxine Hcl (Effexor Extended Rel), 75 MG PO QAM Venlafaxine Hcl (Effexor Extended Rel), 150 MG PO QPM Scheduled PRN Albuterol Sulfate (Proair Respiclick), 2 PUFFS INH Q4H PRN for SOB/Wheezing Tramadol (Ultram), 50 MG PO Q8 PRN for Pain Allergies Coded Allergies: Clindamycin (Verified Allergy, Severe, RASH, DELUSIONAL, CONVULSIONS, 04/13) Eggs or Egg-derived Products (Verified Allergy, Severe, ANAPHYLAXIS, ) NO FLU VAC. Note: 04/05/12, pt ate eggs for breakfast, dietary requested that pharmacy add egg food allergy. aj Furosemide (Verified Allergy, Severe, ANAPHYLAXIS, 04/13/17) Rosuvastatin (Unverified Allergy, Severe, LEG WEAKNESS, 04/13/17) Simvastatin (Unverified Allergy, Severe, LEG WEAKNESS, 04/13/17) Sulfamethoxazole w/Trimethoprim (Verified Allergy, Intermediate, RASH, ) Amoxicillin (Verified Allergy, Unknown, ., 04/13/17) Atorvastatin (Verified Allergy, Unknown, acute renal failure, 04/13/17) Clavulanic Acid (Verified Allergy, Unknown, ., 04/13/17) Egg (Verified Allergy, Unknown, _, 04/13/17) 04/05/12: ADDED PER DIETARY REQUEST. Latex1 -Allergic Contact Dermititis (Verified Allergy, Unknown, RASH, 04/13) Penicillins (Verified Allergy, Unknown, unknown, 04/13/17) Triamcinolone (Verified Allergy, Unknown, RASH, 04/13/17) Diclofenac (Verified Adverse Reaction, Severe, SKIN SLOTHED FROM HEEL, ) Isopropyl Alcohol (Verified Adverse Reaction, Severe, SKIN SLOTHED FROM HEEL, 04/13/17) Propylene Glycol (Verified Adverse Reaction, Severe, SKIN SLOTHED FROM HEEL, 04/13/17) Acetaminophen (Verified Adverse Reaction, Mild, VOMITING, 04/13/17) Physical Exam Vital Signs Date Time Temp Pulse Resp B/P (MAP) Pulse Ox O2 Delivery O2 Flow Rate FiO2 06/13/17 23:56 80 20 133/62 98 Room Air 06/13/17 22:18 36.8 94 22 163/85 95 Room Air 06/13/17 21:22 94 22 157/99 95 Room Air 06/13/17 20:03 88 22 155/80 Room Air 06/13/17 19:22 95 Room Air 06/13/17 18:33 36.8 94 23 119/99 95 Room Air Physical Exam GENERAL: Awake, alert, fatigued and ill-appearing, in no distress HENT: Normocephalic, atraumatic. Dry and cracked mucous membranes. EYES: Normal conjunctiva. Sclera non-icteric. NECK: Supple. No nuchal rigidity. FROM. No JVD. RESPIRATORY: Breath sounds are diminished at the bases, but are otherwise clear. CARDIAC: Regular rate, normal rhythm. Extremities warm and well perfused. Pulses equal. ABDOMEN: Obese abdomen. Soft, non-distended. No tenderness to palpation. No rebound or guarding. No masses. RECTAL: Deferred. MUSCULOSKELETAL: Chest examination reveals no tenderness. The back is symmetrical on inspection without obvious abnormality. There is no CVA tenderness to palpation. No joint edema. LOWER EXTREMITIES: Calves are equal size bilaterally and non-tender. There is scant edema. No discoloration. NEURO: Normal sensorium. No sensory or motor deficits noted. SKIN: No rash or jaundice noted. Medical Decision & Procedures ER Provider Diagnostic Interpretation: Radiology results as stated below per my review and radiologist interpretation: CHEST ONE VIEW PORTABLE CLINICAL HISTORY: Atypical chest pain COMPARISON STUDY: 05/28/2017 FINDINGS: There are postsurgical changes of a midline sternotomy. The heart is enlarged. There is no focal pulmonary consolidation. There are no pleural effusions. There is no overt failure.[ IMPRESSION: Cardiomegaly. No evidence of focal pulmonary consolidation Electronically signed by: Enrique Kumar M.D. 06/13/2017 7:21 PM Dictated Date/Time: 06/13/2017 7:21 PM Laboratory Results 06/13/17 19:40 Red Blood Count 4.91, Mean Corpuscular Volume 78.0, Mean Corpuscular Hemoglobin 24.4, Mean Corpuscular Hemoglobin Concent 31.3, Mean Platelet Volume 10.6, Neutrophils (%) (Auto) 72.5, Lymphocytes (%) (Auto) 18.9, Monocytes (%) (Auto) 7.2, Eosinophils (%) (Auto) 1.0, Basophils (%) (Auto) 0.2, Neutrophils # (Auto) 8.41, Lymphocytes # (Auto) 2.19, Monocytes # (Auto) 0.83, Eosinophils # (Auto) 0.12, Basophils # (Auto) 0.02 06/13/17 19:40 Test 06/13/17 19:40 06/13/17 20:00 White Blood Count 11.59 K/uL (4.8-10.8) Red Blood Count 4.91 M/uL (4.2-5.4) Hemoglobin 12.0 g/dL (12.0-16.0) Hematocrit 38.3 % (37-47) Mean Corpuscular Volume 78.0 fL (80-100) Mean Corpuscular Hemoglobin 24.4 pg (25-34) Mean Corpuscular Hemoglobin Concent 31.3 g/dl (32-36) Platelet Count 274 K/uL (130-400) Mean Platelet Volume 10.6 fL (7.4-10.4) Neutrophils (%) (Auto) 72.5 % Lymphocytes (%) (Auto) 18.9 % Monocytes (%) (Auto) 7.2 % Eosinophils (%) (Auto) 1.0 % Basophils (%) (Auto) 0.2 % Neutrophils # (Auto) 8.41 K/uL (1.4-6.5) Lymphocytes # (Auto) 2.19 K/uL (1.2-3.4) Monocytes # (Auto) 0.83 K/uL (0.11-0.59) Eosinophils # (Auto) 0.12 K/uL (0-0.5) Basophils # (Auto) 0.02 K/uL (0-0.2) RDW Standard Deviation 46.4 fL (36.4-46.3) RDW Coefficient of Variation 16.2 % (11.5-14.5) Immature Granulocyte % (Auto) 0.2 % Immature Granulocyte # (Auto) 0.02 K/uL (0.00-0.02) Anion Gap 9.0 mmol/L (3-11) Est Creatinine Clear Calc Drug Dose 69.3 ml/min Estimated GFR () 69.8 Estimated GFR (Non- 60.2 BUN/Creatinine Ratio 17.5 (10-20) Osmolality 302 mOsm/kg (280-300) Lactic Acid Level 1.0 mmol/L (0.4-2.0) Calcium Level 8.9 mg/dl (8.5-10.1) Phosphorus Level 2.9 mg/dl (2.5-4.9) Magnesium Level 1.5 mg/dl (1.8-2.4) Total Bilirubin 0.5 mg/dl (0.2-1) Direct Bilirubin 0.1 mg/dl (0-0.2) Aspartate Amino Transf (AST/SGOT) 14 U/L (15-37) Alanine Aminotransferase (ALT/SGPT) 26 U/L (12-78) Alkaline Phosphatase 94 U/L (45-117) Troponin I 0.020 ng/ml (0-0.045) Pro-B-Type Natriuretic Peptide 43492 pg/ml (0-900) Total Protein 6.5 gm/dl (6.4-8.2) Albumin 3.1 gm/dl (3.4-5.0) Lipase 102 U/L (73-393) Influenza Type A (RT-PCR) Neg for Influ A (NEG) Influenza Type A Antigen Neg for Influ A (NEG) Influenza Type B Antigen Neg for Influ B (NEG) Influenza Type B (RT-PCR) Neg for Influ B (NEG) Laboratory results reviewed by me Medications Administered Medications (Trade) Dose Ordered Sig/Frieda Route Start Time Stop Time Status Last Admin Dose Admin Sodium Chloride 250 ml @ 999 mls/hr Q16M STAT IV 06/13/17 20:45 06/13/17 21:00 DC 06/13/17 20:45 999 MLS/HR Sodium Chloride 500 ml @ 100 mls/hr Q5H STAT IV 06/13/17 20:45 06/14/17 01:44 06/13/17 20:45 100 MLS/HR Magnesium Sulfate (Magnesium Sulfate) 2 gm NOW STAT IV 06/13/17 21:06 06/13/17 21:07 DC 06/13/17 21:06 2 GM ECG Per My Interpretation Indication: weakness Rate (beats per minute): 92 Rhythm: normal sinus Findings: other (No MIKE/STD) ED Course 1857: The patient was evaluated in room B9. A complete history and physical exam was performed. Medical Decision I reviewed the patient's past medical history, medications, and the nursing notes as described above. Differential diagnosis: Etiologies such as appendicitis, diverticulitis, PUD, biliary pathology, UTI, pancreatitis, obstruction, mesenteric ischemia, aortic pathology, infections, inflammatory bowel disease, renal colic, as well as others were entertained. The patient is a 66-year-old woman with a past medical history of CHF with an EF of 25%, having missed recent scheduled appointment for AICD, resents the emergency department with worsening generalized weakness in the setting of nausea vomiting and diarrhea over the past couple of days,in the setting of having generalized weakness over the past week recently discharged from [facility] rehab per hpi. On arrival, the patient is ill-appearing and fatigued but no acute distress, afebrile with stable vital signs. EKG is normal sinus without evidence of acute ischemia and similar to prior. WBC marginally elevated at 11. Chemistry consistent with dehydration with sodium of 150. Calculated fluid deficit of approximately [address] of the abdomen pelvis negative for acute findings. Symptoms most likely related to a viral gastroenteritis. Flu PCR negative. Given the patient's history of systolic heart failure with severely reduced EF will give 250 cc bolus and follow with gentle IVF gtt. Case was discussed with Dr. Metz, [facility] admitting resident who will evaluate the patient for admission. Impression Primary Impression: Acute hypernatremia Additional Impressions: Hypomagnesemia Dehydration Acute gastroenteritis Scribe Attestation The scribe's documentation has been prepared under my direction and personally reviewed by me in its entirety. I confirm that the note above accurately reflects all work, treatment, procedures, and medical decision making performed by me. Departure Information Referrals RV. Gerard MD (PCP) Patient Instructions My [facility] Problem Qualifiers
--- NOTE | 2017-06-13 19:23 | DIAGNOSTIC IMAGING REPORT ---
CHEST ONE VIEW PORTABLE CLINICAL HISTORY: Atypical chest pain COMPARISON STUDY: 05/28/2017 FINDINGS: There are postsurgical changes of a midline sternotomy. The heart is enlarged. There is no focal pulmonary consolidation. There are no pleural effusions. There is no overt failure.[ IMPRESSION: Cardiomegaly. No evidence of focal pulmonary consolidation Electronically signed by: Enrique Kumar M.D. 06/13/2017 7:21 PM Dictated Date/Time: 06/13/2017 7:21 PM
[2017-06-13 20:05] LABS: BASO % 0.2 %; BASO ABS # 0.02 K/uL (0-0.2); EOS ABS # 0.12 K/uL (0-0.5); HEMATOCRIT 38.3 % (37-47); IG# 0.02 K/uL (0.00-0.02); LYMPH % 18.9 %; LYMPH ABS # 2.19 K/uL (1.2-3.4); MEAN CORPUSCULAR HEMOGLOBIN 24.4 pg (25-34); MEAN CORPUSCULAR HGB CONC 31.3 g/dl (32-36); MEAN PLATELET VOLUME 10.6 fL (7.4-10.4); MONO % 7.2 %; MONO ABS # 0.83 K/uL (0.11-0.59); NEUT % 72.5 %; NEUT ABS # 8.41 K/uL (1.4-6.5); PLATELET COUNT 274 K/uL (130-400); RED CELL DISTRIBUTION WIDTH CV 16.2 % (11.5-14.5); RED CELL DISTRIBUTION WIDTH SD 46.4 fL (36.4-46.3); WHITE BLOOD COUNT 11.59 K/uL (4.8-10.8)
[2017-06-13 20:36] LABS: ALBUMIN 3.1 gm/dl (3.4-5.0); CALCIUM 8.9 mg/dl (8.5-10.1); CREATININE 0.99 mg/dl (0.60-1.20); POTASSIUM 4.2 mmol/L (3.5-5.1)
[2017-06-13 20:39] LABS: PHOSPHORUS 2.9 mg/dl (2.5-4.9); TOTAL PROTEIN 6.5 gm/dl (6.4-8.2)
[2017-06-13 20:43] LABS: INFLUENZA B ANTIGEN Neg for Influ B (NEG)
[2017-06-13] MEDS ORDERED: SODIUM CHLORIDE 0.9% 250ML 250 ML IV STA (20:45)
[2017-06-13] MEDS ORDERED: SODIUM CHLORIDE 0.9% 500ML 500 ML IV STA (20:45)
[2017-06-13] MEDS ORDERED: MAGNESIUM SULFATE 1GM / D5W 1 GM BAG IV STA (21:06)
--- NOTE | 2017-06-13 21:10 | DIAGNOSTIC IMAGING REPORT ---
CT ABD/PELVIS IV CONTRAST ONLY CLINICAL HISTORY: Generalized abdominal pain, nausea, vomiting, diarrhea COMPARISON STUDY: 04/12/2016 TECHNIQUE: Following the IV administration of 93 mL of Optiray-320, CT scan of the abdomen and pelvis was performed from the lung bases to the proximal femurs. Images are reviewed in the axial, sagittal, and coronal planes. IV contrast was administered without complication. A dose lowering technique was utilized adhering to the principles of ALARA. CT DOSE: 1077.42 mGycm FINDINGS: Lower chest: There are minor basilar atelectatic changes. The heart is mildly enlarged Liver: The contrast-enhanced liver is normal in size, contour, and attenuation. There is no intrahepatic biliary ductal dilatation. The hepatic veins and portal veins are patent. Gallbladder: Mildly distended. No calculi are visualized. Spleen: Normal in size and attenuation. Pancreas: Unremarkable. Adrenal glands: There is mild thickening of the adrenal gland similar to the prior study. Kidneys: The kidneys are lobulated. There is no significant hydronephrosis. No solid renal masses are visualized. Bowel: There are no transition zones indicate bowel obstruction. There is no acute diverticulitis. There are no findings to indicate acute appendicitis. There are fluid-filled small bowel and colonic loops consistent with the clinical history of diarrhea. Peritoneum: There is no intraperitoneal free air or abdominal ascites. Vasculature: There are moderately extensive atheromatous calcifications within the aorta and iliac vessels. Adenopathy: None. Pelvic viscera: The uterus appears surgically absent. There is a 42 mm left adnexal soft tissue structure, likely representing an enlarged ovary. Skeletal structures: No destructive osseous lesions are seen. IMPRESSION: 1. No evidence of bowel obstruction. No evidence of free air 2. Mildly distended gallbladder. No calculi identified 3. Fluid-filled small bowel and colonic loops consistent with the clinical history of diarrhea 4. Moderately extensive atheromatous calcifications within the aorta and iliac vessels 5. 42 mm left adnexal soft tissue structure likely representing a mildly enlarged left ovary Electronically signed by: Enrique Kumar M.D. 06/13/2017 9:09 PM Dictated Date/Time: 06/13/2017 8:59 PM
[2017-06-13 21:45] LABS: INFLUENZA A PCR Neg for Influ A (NEG); INFLUENZA B PCR Neg for Influ B (NEG)
[2017-06-13] MEDS ORDERED: INSDGI SQ (22:18)
[2017-06-13] MEDS ORDERED: ALBU18002 INH (22:39)
[2017-06-13] MEDS ORDERED: MIRT30TA2 PO (22:46)
[2017-06-13 23:03] VITALS: BP 126/85; PULSE 91; TEMP 37.3; O2SAT 93; BMI 37.5
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
[2017-06-13] MEDS ORDERED: NITROGLYCERIN 0.4 MG SL PER TAB CHARGE SL PRN (23:30)
[2017-06-13] MEDS ORDERED: POLYETHYLENE (MIRALAX) 17 GM PACK PO PRN (23:30)
[2017-06-13] MEDS ORDERED: MAGNESIUM HYDROXIDE SUSP 30 ML UDC PO PRN (23:30)
[2017-06-13] MEDS ORDERED: ONDANSETRON INJ 2 MG/ML 2 ML VIAL IV PRN (23:30)
[2017-06-14] VITALS (11 sets, daily range): BP systolic 92–131; BP diastolic 54–78; PULSE 85–93; TEMP 36.7–37.3; O2SAT 91–97
[2017-06-14] MEDS ORDERED: IV FLUIDS COMPLETED PRN (00:15)
[2017-06-14] MEDS ORDERED: SODIUM CHLORIDE 0.9% 1000ML 1,000 ML IV SCH (01:00)
[2017-06-14] MEDS: TRAMADOL HCL 50 MG TAB PO PRN ×2 (05:34→19:21)
[2017-06-14 06:16] LABS: BASO % 0.3 %; BASO ABS # 0.03 K/uL (0-0.2); EOS % 1.7 %; EOS ABS # 0.18 K/uL (0-0.5); HEMATOCRIT 35.4 % (37-47); HEMOGLOBIN 10.9 g/dL (12.0-16.0); IG# 0.02 K/uL (0.00-0.02); LYMPH % 25.4 %; LYMPH ABS # 2.75 K/uL (1.2-3.4); MEAN CELL VOLUME 77.8 fL (80-100); MEAN CORPUSCULAR HGB CONC 30.8 g/dl (32-36); MEAN PLATELET VOLUME 10.6 fL (7.4-10.4); MONO % 9.4 %; MONO ABS # 1.02 K/uL (0.11-0.59); NEUT ABS # 6.83 K/uL (1.4-6.5); PLATELET COUNT 258 K/uL (130-400); RED CELL DISTRIBUTION WIDTH CV 16.4 % (11.5-14.5); RED CELL DISTRIBUTION WIDTH SD 46.2 fL (36.4-46.3); WHITE BLOOD COUNT 10.83 K/uL (4.8-10.8)
[2017-06-14 06:55] LABS: ALBUMIN 2.8 gm/dl (3.4-5.0); CALCIUM 8.3 mg/dl (8.5-10.1); CREATININE 0.75 mg/dl (0.60-1.20); POTASSIUM 3.4 mmol/L (3.5-5.1); TOTAL PROTEIN 5.7 gm/dl (6.4-8.2)
[2017-06-14] MEDS: INSULIN ASPART 100 UNITS/ML 3 ML PEN SC SCH ×4 (07:00→20:35)
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
[2017-06-14] MEDS ORDERED: INSULIN ASPART 100 UNITS/ML 3 ML PEN SQ SCH (07:30)
[2017-06-14] MEDS: ETHACRYNIC ACID 25 MG TAB PO SCH ×2 (07:51→19:22)
[2017-06-14] MEDS: CLOPIDOGREL BISULFATE 75 MG TAB PO SCH (07:51)
[2017-06-14] MEDS: CARVEDILOL 6.25 MG TAB PO SCH ×2 (07:51→19:26)
[2017-06-14] MEDS: OXYBUTYNIN CHLORIDE 5 MG TAB PO SCH ×2 (07:52→19:23)
[2017-06-14] MEDS: PAROXETINE 20 MG TAB PO SCH (07:52)
[2017-06-14] MEDS: POTASSIUM CHLORIDE 20 MEQ TABCR PO SCH (07:52)
[2017-06-14] MEDS: VENLAFAXINE HCL XR 75 MG CAPXR PO SCH (07:52)
[2017-06-14] MEDS: SPIRONOLACTONE 25 MG TAB PO SCH ×4 (07:52→17:31)
[2017-06-14] MEDS: MAGNESIUM OXIDE 400 MG TAB PO SCH ×2 (07:53→19:22)
[2017-06-14] MEDS: ASPIRIN 81 MG ECTAB PO SCH (07:53)
[2017-06-14] MEDS ORDERED: INSULIN GLARGINE SOLOSTAR 100 UNITS/ML 3 ML PEN SC ONE (08:30)
[2017-06-14] MEDS: PREGABALIN 150 MG CAP PO SCH (09:19)
[2017-06-14] MEDS: SODIUM CHLOR 0.45% + 20MEQ KCL 1,000 ML IV SCH (12:51)
[2017-06-14] MEDS: ONDANSETRON INJ 2 MG/ML 2 ML VIAL IV SCH ×2 (15:17→20:42)
[2017-06-14] MEDS ORDERED: GLUCOSE 10 TABS/TUBE PO PRN (19:15)
[2017-06-14] MEDS ORDERED: GLUCOSE 40% GEL 15 GM TUBE PO PRN (19:15)
[2017-06-14] MEDS ORDERED: GLUCAGON FOR INJ 1 MG VIAL SQ PRN (19:15)
[2017-06-14] MEDS: MIRTAZAPINE TAB 15 MG TAB PO SCH (20:37)
[2017-06-14] MEDS: VENLAFAXINE HCL XR 150 MG CAPXR PO SCH (20:37)
[2017-06-14] MEDS ORDERED: FAMOTIDINE 20 MG TAB PO SCH (21:00)
[2017-06-14] MEDS: INSULIN GLARGINE SOLOSTAR 100 UNITS/ML 3 ML PEN SC SCH (23:27)
[2017-06-14] MEDS: PROMETHAZINE HCL INJ 25 MG in SODIUM CHLORIDE 0.9% 50ML 50 ML IV PRN (23:58)
[2017-06-15] MEDS: SODIUM CHLOR 0.45% + 20MEQ KCL 1,000 ML IV SCH ×2 (02:23→12:57)
[2017-06-15] MEDS: ONDANSETRON INJ 2 MG/ML 2 ML VIAL IV SCH ×2 (02:24→08:29)
[2017-06-15] MEDS: LEVOTHYROXINE 150 MCG TAB PO SCH (06:07)
[2017-06-15 07:44] VITALS: BP 124/77; PULSE 96; TEMP 37.1; O2SAT 93
[2017-06-15 08:19] LABS: CALCIUM 8.4 mg/dl (8.5-10.1); CREATININE 0.83 mg/dl (0.60-1.20); POTASSIUM 3.6 mmol/L (3.5-5.1)
[2017-06-15] MEDS: INSULIN ASPART 100 UNITS/ML 3 ML PEN SC SCH ×4 (08:29→21:09)
[2017-06-15 09:52] VITALS: O2SAT 97
[2017-06-15] MEDS ORDERED: FAMOTIDINE IV INJ 20 MG in DEXTROSE 5% 100ML 100 ML IV ONE (12:05)
[2017-06-15] MEDS ORDERED: ALUMINUM/MAGNESIUM SUSP 30 ML UDC PO STA (12:05)
[2017-06-15] MEDS ORDERED: LIDOCAINE HCL 2% VISC SOLN 20 ML UDC PO ONE (12:15)
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
[2017-06-15] MEDS: FAMOTIDINE IV INJ 20 MG in SYRINGE 3 ML IV SCH ×2 (12:56→21:07)
[2017-06-15] MEDS: ASPIRIN 81 MG ECTAB PO SCH (13:25)
[2017-06-15] MEDS: CARVEDILOL 6.25 MG TAB PO SCH ×2 (13:25→21:08)
[2017-06-15] MEDS: OXYBUTYNIN CHLORIDE 5 MG TAB PO SCH ×2 (13:25→21:09)
[2017-06-15] MEDS: VENLAFAXINE HCL XR 75 MG CAPXR PO SCH (13:25)
[2017-06-15] MEDS: ETHACRYNIC ACID 25 MG TAB PO SCH ×2 (13:25→21:09)
[2017-06-15] MEDS: PAROXETINE 20 MG TAB PO SCH (13:26)
[2017-06-15] MEDS: POTASSIUM CHLORIDE 20 MEQ TABCR PO SCH (13:26)
[2017-06-15] MEDS: MAGNESIUM OXIDE 400 MG TAB PO SCH ×2 (13:26→21:08)
[2017-06-15] MEDS: CLOPIDOGREL BISULFATE 75 MG TAB PO SCH (13:26)
[2017-06-15] MEDS: SPIRONOLACTONE 25 MG TAB PO SCH ×2 (13:26→17:58)
[2017-06-15] MEDS: PREGABALIN 150 MG CAP PO SCH (13:27)
--- NOTE | 2017-06-15 14:23 | DIAGNOSTIC IMAGING REPORT ---
ABDOMEN LIMITED (US) CLINICAL HISTORY: 66 years-old Female presenting with RUQ, for RUQ pain and diarrhea. TECHNIQUE: Real-time grayscale and limited color Doppler ultrasound imaging of the abdomen limited to the right upper quadrant was performed. COMPARISON: CT from 06/13/2017. FINDINGS: Pancreas: Visualized portions of the pancreatic head and body normal. Liver: Normal echogenicity and echotexture. The liver measures 17.2 cm in maximal sagittal dimension. No sonographic evidence of hepatic mass. Main portal vein patent with normal directional flow. Biliary: No intrahepatic biliary ductal dilatation. Common bile duct measures up to 5-7 mm in diameter. Gallbladder: No evidence of gallstones, gallbladder wall thickening, or pericholecystic fluid or inflammatory change. However, the gallbladder is distended, measuring over 12 cm in length. Right kidney: Normal in appearance. No hydronephrosis. Ascites: None. Other: None. IMPRESSION: 1. No cholelithiasis or biliary ductal dilatation. 2. The gallbladder is distended more than expected for physiologic distention. If there is clinical concern for chronic cholecystitis, HIDA scan with ejection fraction could be obtained. Electronically signed by: José Miguel Drake M.D. 06/15/2017 2:22 PM Dictated Date/Time: 06/15/2017 2:18 PM
[2017-06-15 17:55] VITALS: BP 125/71; PULSE 88; TEMP 36.7; O2SAT 97
[2017-06-15] MEDS ORDERED: FAMOTIDINE IV INJ 20 MG in DEXTROSE 5% 100ML 100 ML IV SCH (20:00)
[2017-06-15 21:05] VITALS: BP 112/68; PULSE 83
[2017-06-15] MEDS: MIRTAZAPINE TAB 15 MG TAB PO SCH (21:08)
[2017-06-15] MEDS: INSULIN GLARGINE SOLOSTAR 100 UNITS/ML 3 ML PEN SC SCH (21:09)
[2017-06-15] MEDS: VENLAFAXINE HCL XR 150 MG CAPXR PO SCH (21:09)
[2017-06-15] MEDS: ONDANSETRON INJ 2 MG/ML 2 ML VIAL IV PRN (23:27)
[2017-06-15 23:35] VITALS: BP 112/68; PULSE 95; TEMP 36.7; O2SAT 92
[2017-06-16] MEDS: PROMETHAZINE HCL INJ 25 MG in SODIUM CHLORIDE 0.9% 50ML 50 ML IV PRN ×2 (00:32→12:20)
[2017-06-16] MEDS: LEVOTHYROXINE 150 MCG TAB PO SCH (05:36)
[2017-06-16 07:31] LABS: CALCIUM 8.4 mg/dl (8.5-10.1); CREATININE 0.91 mg/dl (0.60-1.20); POTASSIUM 3.4 mmol/L (3.5-5.1)
[2017-06-16 07:55] VITALS: BP 139/80; PULSE 99; TEMP 36.9; O2SAT 97
[2017-06-16] MEDS: FAMOTIDINE IV INJ 20 MG in SYRINGE 3 ML IV SCH ×2 (08:36→21:39)
[2017-06-16] MEDS: ONDANSETRON INJ 2 MG/ML 2 ML VIAL IV PRN (08:36)
[2017-06-16] MEDS: INSULIN ASPART 100 UNITS/ML 3 ML PEN SC SCH ×4 (08:46→21:39)
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
[2017-06-16] MEDS: POTASSIUM CHLORIDE 20 MEQ TABCR PO SCH (12:08)
[2017-06-16] MEDS: OXYBUTYNIN CHLORIDE 5 MG TAB PO SCH ×2 (12:08→21:42)
[2017-06-16] MEDS: ETHACRYNIC ACID 25 MG TAB PO SCH ×2 (12:08→21:42)
[2017-06-16] MEDS: ASPIRIN 81 MG ECTAB PO SCH (12:08)
[2017-06-16] MEDS: MAGNESIUM OXIDE 400 MG TAB PO SCH ×2 (12:09→21:41)
[2017-06-16] MEDS: PAROXETINE 20 MG TAB PO SCH (12:09)
[2017-06-16] MEDS: SPIRONOLACTONE 25 MG TAB PO SCH ×3 (12:09→17:22)
[2017-06-16] MEDS: CLOPIDOGREL BISULFATE 75 MG TAB PO SCH (12:09)
[2017-06-16] MEDS: CARVEDILOL 6.25 MG TAB PO SCH ×2 (12:10→21:42)
[2017-06-16] MEDS: VENLAFAXINE HCL XR 75 MG CAPXR PO SCH (12:10)
[2017-06-16] MEDS: PREGABALIN 150 MG CAP PO SCH (12:10)
[2017-06-16 14:49] VITALS: BP 108/68; PULSE 96; TEMP 36.9; O2SAT 97
[2017-06-16] MEDS: INSULIN GLARGINE SOLOSTAR 100 UNITS/ML 3 ML PEN SC SCH (21:39)
[2017-06-16] MEDS: MIRTAZAPINE TAB 15 MG TAB PO SCH (21:41)
[2017-06-16] MEDS: VENLAFAXINE HCL XR 150 MG CAPXR PO SCH (21:42)
[2017-06-17] VITALS: BP 150/85; PULSE 104; TEMP 36.8; O2SAT 95
[2017-06-17] MEDS: LEVOTHYROXINE 150 MCG TAB PO SCH (06:33)
[2017-06-17 07:32] VITALS: BP 128/66; PULSE 99; TEMP 36.8; O2SAT 99
[2017-06-17 08:08] LABS: HEMATOCRIT 39.3 % (37-47); HEMOGLOBIN 12.5 g/dL (12.0-16.0); MEAN CELL VOLUME 77.1 fL (80-100); MEAN CORPUSCULAR HEMOGLOBIN 24.5 pg (25-34); MEAN CORPUSCULAR HGB CONC 31.8 g/dl (32-36); MEAN PLATELET VOLUME 10.6 fL (7.4-10.4); PLATELET COUNT 269 K/uL (130-400); RED CELL DISTRIBUTION WIDTH CV 16.4 % (11.5-14.5); RED CELL DISTRIBUTION WIDTH SD 45.5 fL (36.4-46.3); WHITE BLOOD COUNT 11.88 K/uL (4.8-10.8)
[2017-06-17 08:41] LABS: CALCIUM 8.2 mg/dl (8.5-10.1); CREATININE 0.93 mg/dl (0.60-1.20); POTASSIUM 3.3 mmol/L (3.5-5.1)
[2017-06-17] MEDS: FAMOTIDINE IV INJ 20 MG in SYRINGE 3 ML IV SCH ×2 (08:56→20:27)
[2017-06-17] MEDS: ASPIRIN 81 MG ECTAB PO SCH (08:56)
[2017-06-17] MEDS: OXYBUTYNIN CHLORIDE 5 MG TAB PO SCH ×2 (08:56→20:00)
[2017-06-17] MEDS: CARVEDILOL 6.25 MG TAB PO SCH ×2 (08:56→20:00)
[2017-06-17] MEDS: CLOPIDOGREL BISULFATE 75 MG TAB PO SCH (08:57)
[2017-06-17] MEDS: POTASSIUM CHLORIDE 20 MEQ TABCR PO SCH (08:57)
[2017-06-17] MEDS: PREGABALIN 150 MG CAP PO SCH (08:57)
[2017-06-17] MEDS: SPIRONOLACTONE 25 MG TAB PO SCH ×2 (08:57→17:00)
[2017-06-17] MEDS: PAROXETINE 20 MG TAB PO SCH (08:57)
[2017-06-17] MEDS: ETHACRYNIC ACID 25 MG TAB PO SCH ×2 (08:57→20:00)
[2017-06-17] MEDS: VENLAFAXINE HCL XR 75 MG CAPXR PO SCH (08:57)
[2017-06-17] MEDS: MAGNESIUM OXIDE 400 MG TAB PO SCH ×2 (08:58→20:00)
[2017-06-17 09:02] LABS: BASO % 0.3 %; BASO ABS # 0.03 K/uL (0-0.2); EOS % 0.8 %; EOS ABS # 0.09 K/uL (0-0.5); IG# 0.03 K/uL (0.00-0.02); LYMPH % 20.6 %; LYMPH ABS # 2.45 K/uL (1.2-3.4); MONO % 10.3 %; MONO ABS # 1.22 K/uL (0.11-0.59); NEUT % 67.7 %; NEUT ABS # 8.06 K/uL (1.4-6.5)
[2017-06-17] MEDS: INSULIN ASPART 100 UNITS/ML 3 ML PEN SC SCH ×4 (09:02→20:27)
--- NOTE | 2017-06-17 10:34 | Discharge Instructions ---
Discharge Instructions Date of Service Jun 18, 2017. Admission Reason for Admission: Acute Gastroenteritis Discharge Discharge Diagnosis / Problem: Acute gastroenteritis Discharge Goals Goal(s): Decrease discomfort, Improve function, Improve disease control, Improve nutritional status, Diagnostic testing Activity Recommendations Activity Level: Assistance Required Therapies: Physical Therapy, Occupational Therapy Shower/Bathe: no limitations . Additional Information Patient informed of condition: Yes Advance Directives: Yes DNR: Yes Level of Care: Skilled Communicable Disease: No Prognosis: Stable Instructions / Follow-Up Instructions / Follow-Up 66F admitted for viral gastroenteritis and electrolyte abnormalities. - Given gentle hydration and supplementation of potassium while here. Electrolytes are now stable. - While nausea and vomiting and diarrhea have ceased, pt still experiences a bit of post viral syndrome with urgency to move her bowels after a meal. This along with baseline energy level expected to normalize in 1-2 weeks. - Instructed to continue her medications as prescribed including insulin. No changes made to meds. Encourage hydration. - rehab needed for weakness and lack of strength. May likely need placement in SNF for future. Pt desires this. Thank you. Current Hospital Diet Patient's current hospital diet: AHA Diet (Heart Healthy), Diabetes Type 2 Diet Discharge Diet Recommended Diet: AHA Diet (Heart Healthy), Diabetes Type 2 Diet Procedures Procedures Performed: ABDOMEN LIMITED (US) CLINICAL HISTORY: 66 years-old Female presenting with RUQ, for RUQ pain and diarrhea. TECHNIQUE: Real-time grayscale and limited color Doppler ultrasound imaging of the abdomen limited to the right upper quadrant was performed. COMPARISON: CT from 06/13/2017. FINDINGS: Pancreas: Visualized portions of the pancreatic head and body normal. Liver: Normal echogenicity and echotexture. The liver measures 17.2 cm in maximal sagittal dimension. No sonographic evidence of hepatic mass. Main portal vein patent with normal directional flow. Biliary: No intrahepatic biliary ductal dilatation. Common bile duct measures up to 5-7 mm in diameter. Gallbladder: No evidence of gallstones, gallbladder wall thickening, or pericholecystic fluid or inflammatory change. However, the gallbladder is distended, measuring over 12 cm in length. Right kidney: Normal in appearance. No hydronephrosis. Ascites: None. Other: None. IMPRESSION: 1. No cholelithiasis or biliary ductal dilatation. 2. The gallbladder is distended more than expected for physiologic distention. If there is clinical concern for chronic cholecystitis, HIDA scan with ejection fraction could be obtained. Electronically signed by: José Miguel Drake M.D. 06/15/2017 2:22 PM Dictated Date/Time: 06/15/2017 2:18 PM Pending Studies Studies pending at discharge: no Laboratory Results Hemoglobin A1c Test 05/19/17 11:38 Range/Units Estimated Average Glucose 229 mg/dl Hemoglobin A1c 9.6 H 4.5-5.6 % Medical Emergencies . Who to Call and When: Medical Emergencies: If at any time you feel your situation is an emergency, please call 911 immediately. . Non-Emergent Contact Non-Emergency issues call your: Primary Care Provider . . "Provider Documentation" section prepared by Genevieve Ibarra. . Core Measure Problem Core Measures: None Resident Tracking Resident Involvement: Resident Care Provided Care Provided: Adult Hospital Medicine
[2017-06-17 11:12] VITALS: BP_SYST 120; BP_SYST 128; BP_DIAS 66; BP_DIAS 69; PULSE 92; PULSE 99; TEMP 36.8; O2SAT 99
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
[2017-06-17] MEDS: ONDANSETRON INJ 2 MG/ML 2 ML VIAL IV PRN (12:13)
[2017-06-17] MEDS: PROMETHAZINE HCL INJ 25 MG in SODIUM CHLORIDE 0.9% 50ML 50 ML IV PRN (13:04)
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
[2017-06-17 15:04] VITALS: BP 148/72; PULSE 101; TEMP 37.1; O2SAT 92
[2017-06-17] MEDS: MIRTAZAPINE TAB 15 MG TAB PO SCH (20:27)
[2017-06-17] MEDS: VENLAFAXINE HCL XR 150 MG CAPXR PO SCH (20:27)
[2017-06-17] MEDS: INSULIN GLARGINE SOLOSTAR 100 UNITS/ML 3 ML PEN SC SCH (21:13)
[2017-06-17 22:32] VITALS: BP 114/71; PULSE 94; TEMP 36.8; O2SAT 93
[2017-06-18] MEDS: LEVOTHYROXINE 150 MCG TAB PO SCH (05:59)
[2017-06-18 07:38] VITALS: BP 152/77; PULSE 93; TEMP 36.6; O2SAT 96
[2017-06-18] MEDS: CLOPIDOGREL BISULFATE 75 MG TAB PO SCH ×2 (08:00→08:58)
[2017-06-18] MEDS: POTASSIUM CHLORIDE 20 MEQ TABCR PO SCH ×2 (08:00→08:59)
[2017-06-18] MEDS: MAGNESIUM OXIDE 400 MG TAB PO SCH ×3 (08:00→20:00)
[2017-06-18] MEDS: OXYBUTYNIN CHLORIDE 5 MG TAB PO SCH ×3 (08:00→20:23)
[2017-06-18] MEDS: ASPIRIN 81 MG ECTAB PO SCH (08:56)
[2017-06-18] MEDS: SPIRONOLACTONE 25 MG TAB PO SCH ×2 (08:57→16:46)
[2017-06-18] MEDS: PAROXETINE 20 MG TAB PO SCH (08:57)
[2017-06-18] MEDS: CARVEDILOL 6.25 MG TAB PO SCH ×2 (08:57→20:23)
[2017-06-18] MEDS: ETHACRYNIC ACID 25 MG TAB PO SCH ×2 (08:58→20:22)
[2017-06-18] MEDS: VENLAFAXINE HCL XR 75 MG CAPXR PO SCH (08:58)
[2017-06-18] MEDS: INSULIN ASPART 100 UNITS/ML 3 ML PEN SC SCH ×4 (09:00→20:20)
[2017-06-18] MEDS: FAMOTIDINE IV INJ 20 MG in SYRINGE 3 ML IV SCH ×2 (09:04→20:22)
[2017-06-18] MEDS: PREGABALIN 150 MG CAP PO SCH (09:04)
[2017-06-18] MEDS: ONDANSETRON INJ 2 MG/ML 2 ML VIAL IV PRN (09:12)
[2017-06-18 15:18] VITALS: BP 120/69; PULSE 92; TEMP 37.4; O2SAT 90
[2017-06-18 16:00] VITALS: O2SAT 90
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
[2017-06-18] MEDS: MIRTAZAPINE TAB 15 MG TAB PO SCH (20:23)
[2017-06-18] MEDS: VENLAFAXINE HCL XR 150 MG CAPXR PO SCH (20:25)
[2017-06-18] MEDS ORDERED: INSULIN GLARGINE SOLOSTAR 100 UNITS/ML 3 ML PEN SC ONE (21:00)
[2017-06-18] MEDS: INSULIN GLARGINE SOLOSTAR 100 UNITS/ML 3 ML PEN SC SCH (21:04)
[2017-06-18 22:50] VITALS: BP 129/79; PULSE 96; TEMP 36.9; O2SAT 90
[2017-06-19] MEDS: LEVOTHYROXINE 150 MCG TAB PO SCH (05:49)
[2017-06-19 07:47] VITALS: BP 109/69; PULSE 101; TEMP 36.5; O2SAT 94
[2017-06-19 07:54] VITALS: O2SAT 94
[2017-06-19] MEDS: MAGNESIUM OXIDE 400 MG TAB PO SCH ×2 (08:00→20:59)
[2017-06-19] MEDS: POTASSIUM CHLORIDE 20 MEQ TABCR PO SCH (08:00)
[2017-06-19] MEDS: INSULIN ASPART 100 UNITS/ML 3 ML PEN SC SCH ×4 (09:14→20:51)
[2017-06-19] MEDS: OXYBUTYNIN CHLORIDE 5 MG TAB PO SCH ×2 (09:15→20:57)
[2017-06-19] MEDS: ETHACRYNIC ACID 25 MG TAB PO SCH ×2 (09:15→20:58)
[2017-06-19] MEDS: CLOPIDOGREL BISULFATE 75 MG TAB PO SCH (09:15)
[2017-06-19] MEDS: PAROXETINE 20 MG TAB PO SCH (09:15)
[2017-06-19] MEDS: ASPIRIN 81 MG ECTAB PO SCH (09:16)
[2017-06-19] MEDS: SPIRONOLACTONE 25 MG TAB PO SCH ×2 (09:16→17:01)
[2017-06-19] MEDS: VENLAFAXINE HCL XR 75 MG CAPXR PO SCH (09:16)
[2017-06-19] MEDS: CARVEDILOL 6.25 MG TAB PO SCH ×2 (09:17→20:58)
[2017-06-19] MEDS: PREGABALIN 150 MG CAP PO SCH (09:20)
[2017-06-19] MEDS: FAMOTIDINE IV INJ 20 MG in SYRINGE 3 ML IV SCH ×2 (09:20→20:57)
[2017-06-19 15:42] VITALS: BP 108/67; PULSE 91; TEMP 37.9; O2SAT 90
[2017-06-19 16:00] VITALS: O2SAT 90
[2017-06-19 16:19] VITALS: TEMP 36.7
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
[2017-06-19] MEDS: SODIUM CHLOR 0.45% + 20MEQ KCL 1,000 ML IV SCH (20:54)
[2017-06-19] MEDS: VENLAFAXINE HCL XR 150 MG CAPXR PO SCH (20:58)
[2017-06-19] MEDS: MIRTAZAPINE TAB 15 MG TAB PO SCH (20:59)
[2017-06-19] MEDS: INSULIN GLARGINE SOLOSTAR 100 UNITS/ML 3 ML PEN SC SCH (21:34)
[2017-06-19] MEDS: ONDANSETRON INJ 2 MG/ML 2 ML VIAL IV PRN (22:11)
[2017-06-20] VITALS (9 sets, daily range): BP systolic 111–134; BP diastolic 65–79; PULSE 90–94; TEMP 36.3–37.8; O2SAT 93–97
[2017-06-20] MEDS: LEVOTHYROXINE 150 MCG TAB PO SCH ×2 (06:07→06:13)
[2017-06-20 07:57] LABS: BASO % 0.3 %; BASO ABS # 0.04 K/uL (0-0.2); EOS % 0.9 %; EOS ABS # 0.13 K/uL (0-0.5); HEMATOCRIT 44.3 % (37-47); HEMOGLOBIN 14.4 g/dL (12.0-16.0); IG# 0.05 K/uL (0.00-0.02); LYMPH % 18.5 %; LYMPH ABS # 2.64 K/uL (1.2-3.4); MEAN CORPUSCULAR HEMOGLOBIN 24.7 pg (25-34); MEAN CORPUSCULAR HGB CONC 32.5 g/dl (32-36); MEAN PLATELET VOLUME 10.7 fL (7.4-10.4); MONO % 11.2 %; MONO ABS # 1.59 K/uL (0.11-0.59); NEUT % 68.7 %; NEUT ABS # 9.81 K/uL (1.4-6.5); PLATELET COUNT 260 K/uL (130-400); RED CELL DISTRIBUTION WIDTH CV 17.1 % (11.5-14.5); RED CELL DISTRIBUTION WIDTH SD 46.2 fL (36.4-46.3); WHITE BLOOD COUNT 14.26 K/uL (4.8-10.8)
[2017-06-20] MEDS: FAMOTIDINE IV INJ 20 MG in SYRINGE 3 ML IV SCH ×2 (08:00→21:06)
[2017-06-20] MEDS: VENLAFAXINE HCL XR 75 MG CAPXR PO SCH (08:00)
[2017-06-20] MEDS: OXYBUTYNIN CHLORIDE 5 MG TAB PO SCH ×2 (08:00→20:16)
[2017-06-20] MEDS: POTASSIUM CHLORIDE 20 MEQ TABCR PO SCH (08:00)
[2017-06-20] MEDS: MAGNESIUM OXIDE 400 MG TAB PO SCH ×2 (08:00→20:17)
[2017-06-20] MEDS: PAROXETINE 20 MG TAB PO SCH (08:00)
[2017-06-20] MEDS: PREGABALIN 150 MG CAP PO SCH (08:00)
[2017-06-20] MEDS: ETHACRYNIC ACID 25 MG TAB PO SCH ×2 (08:00→20:18)
[2017-06-20] MEDS: CARVEDILOL 6.25 MG TAB PO SCH ×2 (08:00→20:16)
[2017-06-20] MEDS: ASPIRIN 81 MG ECTAB PO SCH (08:00)
[2017-06-20] MEDS: CLOPIDOGREL BISULFATE 75 MG TAB PO SCH (08:00)
[2017-06-20 08:27] LABS: ALBUMIN 2.9 gm/dl (3.4-5.0); CALCIUM 7.4 mg/dl (8.5-10.1); CREATININE 1.32 mg/dl (0.60-1.20); POTASSIUM 3.1 mmol/L (3.5-5.1)
[2017-06-20 08:30] LABS: TOTAL PROTEIN 6.3 gm/dl (6.4-8.2)
[2017-06-20] MEDS: INSULIN ASPART 100 UNITS/ML 3 ML PEN SC SCH ×4 (08:34→21:05)
[2017-06-20] MEDS: SPIRONOLACTONE 25 MG TAB PO SCH ×2 (09:00→17:57)
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
--- NOTE | 2017-06-20 10:19 | Gastrointestinal Consultation ---
Gastrointestinal Consultation Date of Consultation: Jun 20, 2017 Attending Physician: Dr. Ibarra Consulting Physician: Dr. Reyez/CHANDRA Gill Reason for Consultation: Nausea, Vomiting, Gastroenteritis History of Present Illness Patient is a 66 year old female admitted to the hospital with a suspected acute gastroenteritis as she was having symptoms of nausea with vomiting, abdominal pain and severe watery diarrhea beginning approximately two days prior to arrival. CT imaging demonstrated intestinal fluid levels consistent with a diarrheal illness. Since her admission, however, she has been minimally improving. The patient did have a fever last evening and her diarrhea is worsening with 7 documented bms yesterday. Patient states "it's just running out of me" and she is having frequent and urgent stools with fecal incontinence. No history of C Difficile infection and stool was negative on admission. Currently, she is reporting persistent nausea that is not improved with antiemetics as well as abdominal pain and cramping. No bloody or black stools. She is being treated with both Zofran and Phenergan as well as H2 angela therapy without any significant improvement. She has been refusing antiemetics stating "they don't help". WBC was 14.26 but her H&H was normal today. She has been made NPO after midnight by the primary team for possible endoscopy today as he intolerance to PO is delaying discharge planning. Patient was seen by Samra Oquendo PA-C and Dr. Reyez during an admission to the hospital 2 years ago. At that time, she was having symptoms of dysphagia but she was treated empirically for carolyn esophagitis as she was status post CABG. Past Medical/Surgical History Medical Problems: (1) ACS (acute coronary syndrome) Status: Acute (2) Acute gastroenteritis Status: Acute (3) Acute hypernatremia Status: Acute (4) Acute kidney injury Status: Acute (5) CHF (congestive heart failure) Status: Acute (6) CHF exacerbation Status: Acute (7) Contusion of right hip Status: Acute (8) Contusion of right shoulder Status: Acute (9) COPD (chronic obstructive pulmonary disease) Status: Acute (10) COPD exacerbation Status: Acute (11) Elevated troponin Status: Acute (12) Hypoxia Status: Acute (13) Influenza Status: Acute (14) Pneumonia Status: Acute (15) Troponin level elevated Status: Acute (16) Vomiting Status: Acute (17) Weakness Status: Acute Past Medical History: COPD, CAD, CHF, DM2, HLD, PNA, ACS, Asthma, HTN Past Surgical History: CABG Family History No pertinent family history Negative for GI malignancy or IBD Social History Smoking Status: Former Smoker (Ex smoker of 23 years, ) Alcohol Use: none Drug Use: none Marital Status: single Housing Status: lives alone Occupation Status: retired Allergies Coded Allergies: Clindamycin (Verified Allergy, Severe, RASH, DELUSIONAL, CONVULSIONS, 04/13) Eggs or Egg-derived Products (Verified Allergy, Severe, ANAPHYLAXIS, ) NO FLU VAC. Note: 04/05/12, pt ate eggs for breakfast, dietary requested that pharmacy add egg food allergy. aj Furosemide (Verified Allergy, Severe, ANAPHYLAXIS, 04/13/17) Rosuvastatin (Unverified Allergy, Severe, LEG WEAKNESS, 04/13/17) Simvastatin (Unverified Allergy, Severe, LEG WEAKNESS, 04/13/17) Sulfamethoxazole w/Trimethoprim (Verified Allergy, Intermediate, RASH, ) Amoxicillin (Verified Allergy, Unknown, ., 04/13/17) Atorvastatin (Verified Allergy, Unknown, acute renal failure, 04/13/17) Clavulanic Acid (Verified Allergy, Unknown, ., 04/13/17) Egg (Verified Allergy, Unknown, _, 04/13/17) 04/05/12: ADDED PER DIETARY REQUEST. Latex1 -Allergic Contact Dermititis (Verified Allergy, Unknown, RASH, 04/13) Penicillins (Verified Allergy, Unknown, unknown, 04/13/17) Triamcinolone (Verified Allergy, Unknown, RASH, 04/13/17) Diclofenac (Verified Adverse Reaction, Severe, SKIN SLOTHED FROM HEEL, ) Isopropyl Alcohol (Verified Adverse Reaction, Severe, SKIN SLOTHED FROM HEEL, 04/13/17) Propylene Glycol (Verified Adverse Reaction, Severe, SKIN SLOTHED FROM HEEL, 04/13/17) Acetaminophen (Verified Adverse Reaction, Mild, VOMITING, 04/13/17) Current Medications Home Meds and Scripts Medications Dose Route/Sig Max Daily Dose Days Date Category Dose Instructions Proair Respiclick (Albuterol Sulfate) 108 Mcg/Act Aer 2 Puffs INH Q4H PRN 06/13/17 Reported Edecrin (Ethacrynic Acid) 25 Mg Tab 50 Mg PO BID 05/28/17 Reported Aldactone (Spironolactone) 25 Mg Tab 25 Mg PO BID 05/28/17 Reported Klor-Con M20 (Potassium Chloride) 20 Meq Tabcr 20 Meq PO DAILY 05/28/17 Reported Mag-Ox (Magnesium Oxide) 400 Mg Tab 400 Mg PO BID 05/28/17 Reported Coreg (Carvedilol) 6.25 Mg Tab 6.25 Mg PO BID 05/28/17 Reported Humalog Kwikpen (Insulin Lispro (Human)) 100 Unit/Ml Inj 26 Units SQ WM 04/04/17 Reported Levothyroxine Sodium 150 Mcg Tab 150 Mcg PO QAM 04/04/17 Reported Toujeo Solostar (Insulin Glargine) 300 Unit/Ml Inj 80 Units SQ QHS 11/09/16 Reported Multi For Her 50+ (Multiple Vitamins W/ Minerals) 1 Cap Cap 1 Cap PO DAILY 04/07/[address] (Aspirin) 81 Mg Tab 81 Mg PO DAILY 04/07/16 Reported Vitamin D 25329 Unit (Ergocalciferol) 50,000 Unit Cap 50,000 Inter.unit PO WK 04/07/16 Reported ON TUESDAYS Clopidogrel (Clopidogrel Bisulfate) 75 Mg Tab 75 Mg PO DAILY 04/07/16 Reported Lisinopril 2.5 Mg Tab 2.5 Mg PO DAILY 04/07/16 Reported Effexor Extended Rel (Venlafaxine Hcl) 150 Mg Capcr 150 Mg PO QPM 04/07/16 Reported Effexor Extended Rel (Venlafaxine Hcl) 75 Mg Capcr 75 Mg PO QAM 04/07/16 Reported Paroxetine HCl (Paroxetine) 20 Mg Tab 20 Mg PO DAILY 04/07/16 Reported Pepcid (Famotidine) 20 Mg Tab 20 Mg PO QPM 04/07/16 Reported Ultram (Tramadol HCl) 50 Mg Tab 50 Mg PO Q8 PRN 06/01/15 Reported Pramipexole Dihydrochlori (Pramipexole Dihydrochloride) 0.75 Mg Tab 0.75 Mg PO QPM 03/01/15 Reported Remeron (Mirtazapine) 30 Mg Tab 30 Mg PO HS 03/01/15 Reported Ditropan (Oxybutynin Chloride) 5 Mg Tab 5 Mg PO BID 08/22/13 Reported Lyrica (Pregabalin) 150 Mg Cap 300 Mg PO HS 03/09/13 Reported Lyrica (Pregabalin) 150 Mg Cap 150 Mg PO QAM 03/09/13 Reported Review of Systems Constitutional: + see HPI, + fatigue Eyes: No problem reported ENT: No trouble swallowing, No pain on swallowing Respiratory: No cough, No shortness of breath Cardiac: No chest pain, No palpitations Abdomen: + see HPI Musculoskeletal: No problem reported Neuro: No problem reported Psych: No problem reported Skin: No problem reported Physical Exam Date Time Temp Pulse Resp B/P (MAP) Pulse Ox O2 Delivery O2 Flow Rate FiO2 06/20/17 08:13 36.6 94 18 118/76 (90) 93 Room Air 06/20/17 08:00 Room Air 06/20/17 00:30 Room Air 06/20/17 00:27 37.2 91 18 132/79 (96) 93 Room Air 06/19/17 16:19 36.7 06/19/17 16:00 90 Room Air 06/19/17 15:42 37.9 91 18 108/67 (81) 90 Room Air General Appearance: no apparent distress Eyes: EOMI ENT: hearing grossly normal Neck: supple Respiratory/Chest: chest non-tender, lungs clear, normal breath sounds Cardiovascular: regular rate, rhythm Abdomen: soft, + abnormal bowel sounds (hyperactive), + tenderness (moderate epigastric pain) Extremities: no pedal edema Neurologic/Psych: alert, normal mood/affect, oriented x 3 Skin: warm/dry Laboratory Results Last 24 Hours Test 06/19/17 11:16 06/19/17 16:34 06/19/17 20:40 06/20/17 07:43 Bedside Glucose 125 mg/dl 121 mg/dl 100 mg/dl White Blood Count 14.26 K/uL Red Blood Count 5.83 M/uL Hemoglobin 14.4 g/dL Hematocrit 44.3 % Mean Corpuscular Volume 76.0 fL Mean Corpuscular Hemoglobin 24.7 pg Mean Corpuscular Hemoglobin Concent 32.5 g/dl Platelet Count 260 K/uL Mean Platelet Volume 10.7 fL Neutrophils (%) (Auto) 68.7 % Lymphocytes (%) (Auto) 18.5 % Monocytes (%) (Auto) 11.2 % Eosinophils (%) (Auto) 0.9 % Basophils (%) (Auto) 0.3 % Neutrophils # (Auto) 9.81 K/uL Lymphocytes # (Auto) 2.64 K/uL Monocytes # (Auto) 1.59 K/uL Eosinophils # (Auto) 0.13 K/uL Basophils # (Auto) 0.04 K/uL RDW Standard Deviation 46.2 fL RDW Coefficient of Variation 17.1 % Immature Granulocyte % (Auto) 0.4 % Immature Granulocyte # (Auto) 0.05 K/uL Sodium Level 136 mmol/L Potassium Level 3.1 mmol/L Chloride Level 99 mmol/L Carbon Dioxide Level 26 mmol/L Anion Gap 10.0 mmol/L Blood Urea Nitrogen 25 mg/dl Creatinine 1.32 mg/dl Est Creatinine Clear Calc Drug Dose 51.1 ml/min Estimated GFR () 49.3 Estimated GFR (Non- 42.5 BUN/Creatinine Ratio 18.6 Random Glucose 130 mg/dl Calcium Level 7.4 mg/dl Total Bilirubin 0.6 mg/dl Aspartate Amino Transf (AST/SGOT) 16 U/L Alanine Aminotransferase (ALT/SGPT) 20 U/L Alkaline Phosphatase 95 U/L Total Protein 6.3 gm/dl Albumin 2.9 gm/dl Globulin 3.4 gm/dl Albumin/Globulin Ratio 0.9 Lipase 80 U/L Test 06/20/17 07:49 Bedside Glucose 123 mg/dl Impression Patient is a 66 year old female admitted with nausea, vomiting and diarrhea with persistent symptoms despite supportive care. Plan 1. EGD and repeat C Difficile testing for further evaluation of symptoms. 2. Continue H2 angela and antiemetics as prescribed. 3. Continue supportive medical management. 4. Additional recommendations pending results of testing. Thank you for allowing us to participate in the care of this pleasant patient. If you have any questions or concerns, please do not hesitate to contact us. OK to resume all medications today as prescribed Abd: Soft, NT, ND, +BS Continue current therapy EGD today for further evaluation
[2017-06-20] MEDS: POTASSIUM CHLR 10 MEQ / WTR 10 MEQ in PREMIXED WATER 100 ML IV SCH ×4 (10:30→19:46)
[2017-06-20] MEDS ORDERED: LIDOCAINE HCL 2% 2 ML VIAL (20MG/ML) ONE (16:04)
[2017-06-20] MEDS ORDERED: PROPOFOL IV EMULSION 10 MG/ML 20 ML VIAL IV ONE (16:04)
--- NOTE | 2017-06-20 16:28 | GI REPORT ---
Procedure Date: 06/20/2017 4:07 PM Procedure: Upper GI endoscopy Indications: Nausea with vomiting Medicines: Monitored Anesthesia Care Complications: No immediate complications. Estimated Blood Loss: Estimated blood loss: none. Procedure: Pre-Anesthesia Assessment: - Prior to the procedure, a History and Physical was performed, and patient medications and allergies were reviewed. The patient's tolerance of previous anesthesia was also reviewed. The risks and benefits of the procedure and the sedation options and risks were discussed with the patient. All questions were answered, and informed consent was obtained. Prior Anticoagulants: The patient last took aspirin 1 day and Plavix (clopidogrel) 1 day prior to the procedure. ASA Grade Assessment: III - A patient with severe systemic disease. After reviewing the risks and benefits, the patient was deemed in satisfactory condition to undergo the procedure. After obtaining informed consent, the endoscope was passed under direct vision. Throughout the procedure, the patient's blood pressure, pulse, and oxygen saturations were monitored continuously. The Scope was introduced through the mouth, and advanced to the second part of duodenum. The upper GI endoscopy was accomplished without difficulty. The patient tolerated the procedure well. Findings: The esophagus was normal. Diffuse moderate inflammation characterized by erythema was found in the entire examined stomach. Biopsies were taken with a cold forceps for histology. The examined duodenum was normal. Impression: - Normal esophagus. - Gastritis. Biopsied. - Normal examined duodenum. Recommendation: - [facility]. - Use Protonix (pantoprazole) 40 mg IV daily. - Use sucralfate suspension 1 gram PO QID for 10 days. - Advance diet as tolerated. Joaquim Reyez, DO 06/20/2017 4:27:42 PM This report has been signed electronically. Note Initiated On: 06/20/2017 4:07 PM I attest to the content of the Intraoperative Record and orders documented therein, exceptions below
--- NOTE | 2017-06-20 16:39 | Anesthesiology Progress Note ---
Anesthesia Post Op Note Date & Time Jun 20, 2017 at 16:39 Vital Signs Pain Intensity: 0.0 Vital Signs Past 12 Hours Date Time Temp Pulse Resp B/P (MAP) Pulse Ox O2 Delivery O2 Flow Rate FiO2 06/20/17 16:25 90 16 116/68 (84) 97 Room Air 06/20/17 15:22 36.3 90 16 111/65 (80) 95 Room Air 06/20/17 15:21 36.7 93 18 125/74 (91) 95 Room Air 06/20/17 08:13 36.6 94 18 118/76 (90) 93 Room Air 06/20/17 08:00 Room Air Notes Mental Status: alert / awake / arousable, participated in evaluation Pt Amnestic to Procedure: Yes Nausea / Vomiting: adequately controlled Pain: adequately controlled Airway Patency, RR, SpO2: stable & adequate BP & HR: stable & adequate Hydration State: stable & adequate Anesthetic Complications: no major complications apparent
[2017-06-20] MEDS ORDERED: LABETALOL HCL IV 5 MG/ML 20ML IV PRN (16:45)
[2017-06-20] MEDS: SODIUM CHLOR 0.45% + 20MEQ KCL 1,000 ML IV SCH (17:14)
[2017-06-20] MEDS: SUCRALFATE 1 GM/10 ML UDC PO SCH ×2 (17:54→20:16)
[2017-06-20] MEDS: VENLAFAXINE HCL XR 150 MG CAPXR PO SCH (20:16)
[2017-06-20] MEDS ORDERED: NURSING VERBAL MED ORDER ONE (21:00)
[2017-06-20] MEDS: PANTOprazole INJ 40 MG in SYRINGE 0 ML IV SCH (21:06)
[2017-06-20] MEDS: MIRTAZAPINE TAB 15 MG TAB PO SCH (21:07)
[2017-06-20] MEDS ORDERED: INSULIN GLARGINE SOLOSTAR 100 UNITS/ML 3 ML PEN SC ONE (21:15)
[2017-06-21 00:12] VITALS: BP 132/75; PULSE 97; TEMP 36.9; O2SAT 92
[2017-06-21] MEDS: LEVOTHYROXINE 150 MCG TAB PO SCH (06:10)
[2017-06-21] MEDS: ONDANSETRON INJ 2 MG/ML 2 ML VIAL IV PRN ×2 (06:16→23:54)
[2017-06-21] MEDS: INSULIN ASPART 100 UNITS/ML 3 ML PEN SC SCH ×4 (06:30→20:58)
[2017-06-21 07:31] VITALS: BP_SYST 116; BP_SYST 93; BP_DIAS 58; BP_DIAS 65; PULSE 101; PULSE 78; TEMP 36.8; O2SAT 94; O2SAT 95
[2017-06-21] MEDS: CARVEDILOL 6.25 MG TAB PO SCH ×2 (08:00→20:55)
[2017-06-21] MEDS: PAROXETINE 20 MG TAB PO SCH (08:00)
[2017-06-21] MEDS: OXYBUTYNIN CHLORIDE 5 MG TAB PO SCH ×2 (08:00→20:56)
[2017-06-21] MEDS: ETHACRYNIC ACID 25 MG TAB PO SCH ×2 (08:00→20:59)
[2017-06-21] MEDS: POTASSIUM CHLORIDE 20 MEQ TABCR PO SCH (08:00)
[2017-06-21] MEDS: ASPIRIN 81 MG ECTAB PO SCH (08:00)
[2017-06-21] MEDS: CLOPIDOGREL BISULFATE 75 MG TAB PO SCH (08:00)
[2017-06-21] MEDS: VENLAFAXINE HCL XR 75 MG CAPXR PO SCH (08:00)
[2017-06-21] MEDS: PREGABALIN 150 MG CAP PO SCH (08:00)
[2017-06-21] MEDS: MAGNESIUM OXIDE 400 MG TAB PO SCH ×2 (08:00→20:57)
[2017-06-21 08:16] LABS: BASO % 0.3 %; BASO ABS # 0.04 K/uL (0-0.2); EOS % 1.4 %; HEMOGLOBIN 14.7 g/dL (12.0-16.0); IG# 0.06 K/uL (0.00-0.02); LYMPH % 16.9 %; LYMPH ABS # 2.37 K/uL (1.2-3.4); MEAN CELL VOLUME 75.6 fL (80-100); MEAN CORPUSCULAR HEMOGLOBIN 24.7 pg (25-34); MEAN CORPUSCULAR HGB CONC 32.7 g/dl (32-36); MONO % 9.9 %; MONO ABS # 1.39 K/uL (0.11-0.59); NEUT % 71.1 %; PLATELET COUNT 263 K/uL (130-400); RED CELL DISTRIBUTION WIDTH CV 17.3 % (11.5-14.5); RED CELL DISTRIBUTION WIDTH SD 46.4 fL (36.4-46.3); WHITE BLOOD COUNT 14.06 K/uL (4.8-10.8)
[2017-06-21] MEDS: FAMOTIDINE IV INJ 20 MG in SYRINGE 3 ML IV SCH ×2 (08:36→21:06)
[2017-06-21 08:39] LABS: CALCIUM 7.3 mg/dl (8.5-10.1); CREATININE 1.11 mg/dl (0.60-1.20); POTASSIUM 3.2 mmol/L (3.5-5.1)
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
[2017-06-21] MEDS: PROMETHAZINE HCL INJ 25 MG in SODIUM CHLORIDE 0.9% 50ML 50 ML IV PRN (08:57)
[2017-06-21] MEDS: SPIRONOLACTONE 25 MG TAB PO SCH ×2 (09:00→16:51)
[2017-06-21] MEDS ORDERED: MAGNESIUM SULFATE 1GM / D5W 1 GM in PREMIXED IN D5W 100 ML IV ONE (09:00)
[2017-06-21] MEDS: SUCRALFATE 1 GM/10 ML UDC PO SCH ×4 (09:34→20:54)
--- NOTE | 2017-06-21 09:51 | Gastroenterology Progress Note ---
Progress Note Date of Service: Jun 21, 2017 Subjective Pt evaluation today including: conversation w/ patient, physical exam, chart review, lab review, review of studies, review of inpatient medication list Patient reports persistent nausea but is refusing both antiemetics and oral medications, including Carafate. EGD yesterday with moderate gastritis, path pending. No abdominal pain. Diarrhea has improved slightly. Review of Systems Constitutional: + fatigue Abdomen: + see HPI Medications Current Inpatient Medications Medications (Trade) Dose Ordered Sig/Frieda Route Start Time Stop Time Status Last Admin Dose Admin Magnesium Hydroxide (Milk Of Magnesia Susp) 30 ml Q12H PRN PO 06/13/17 23:30 07/13/17 23:29 Nitroglycerin (Nitrostat Tab) 0.4 mg UD PRN SL 06/13/17 23:30 07/13/17 23:29 Polyethylene (Miralax Powder Packet) 17 gm DAILY PRN PO 06/13/17 23:30 07/13/17 23:29 Miscellaneous (Iv Fluids Completed) 1 ea PRN PRN N/A 06/14/17 00:15 06/14/18 00:14 Aspirin (Ecotrin Tab) 81 mg DAILY PO 06/14/17 09:00 07/14/17 08:59 06/19/17 09:16 81 MG Carvedilol (Coreg Tab) 6.25 mg BID PO 06/14/17 09:00 07/14/17 08:59 06/20/17 20:16 6.25 MG Clopidogrel Bisulfate (plAVix TAB) 75 mg DAILY PO 06/14/17 09:00 07/14/17 08:59 06/19/17 09:15 75 MG Ethacrynic Acid (Edecrin Tab) 50 mg BID PO 06/14/17 09:00 07/14/17 08:59 06/20/17 20:18 50 MG Levothyroxine Sodium (Synthroid Tab) 150 mcg DAILYBB PO 06/15/17 06:00 07/15/17 05:59 06/21/17 06:10 150 MCG Magnesium Oxide (Mag-Ox Tab) 400 mg BID PO 06/14/17 09:00 07/14/17 08:59 06/20/17 20:17 400 MG Mirtazapine (Remeron Tab) 30 mg HS PO 06/14/17 21:00 07/14/17 20:59 06/20/17 21:07 30 MG Oxybutynin Chloride (Ditropan Tab) 5 mg BID PO 06/14/17 09:00 07/14/17 08:59 06/20/17 20:16 5 MG Paroxetine HCl (pAXil TAB) 20 mg DAILY PO 06/14/17 09:00 07/14/17 08:59 06/19/17 09:15 20 MG Potassium Chloride (Klor-Con Tab) 20 meq DAILY PO 06/14/17 09:00 07/14/17 08:59 06/17/17 08:57 20 MEQ Pregabalin (Lyrica Cap) 150 mg QAM PO 06/14/17 09:00 07/14/17 08:59 06/19/17 09:20 150 MG Spironolactone (Aldactone Tab) 25 mg BID17 PO 06/14/17 09:00 07/14/17 08:59 06/20/17 17:57 25 MG Tramadol HCl (Ultram Tab) 50 mg Q8 PRN PO 06/14/17 04:45 07/14/17 04:44 06/14/17 19:21 50 MG Venlafaxine HCl (effeXOR EXTENDED REL CAP) 75 mg QAM PO 06/14/17 09:00 07/14/17 08:59 06/19/17 09:16 75 MG Venlafaxine HCl (effeXOR EXTENDED REL CAP) 150 mg QPM PO 06/14/17 21:00 07/14/17 20:59 06/20/17 20:16 150 MG Glucagon (Glucagon Inj) 1 mg UD PRN SQ 06/14/17 19:15 07/14/17 19:14 Glucose (Glucose 40% Gel) 15-30 GRAMS 15 GRAMS... UD PRN PO 06/14/17 19:15 07/14/17 19:14 Glucose (Glucose Chew Tab) 4-8 Tablets 4 Tabl... UD PRN PO 06/14/17 19:15 07/14/17 19:14 Insulin Aspart (novoLOG ASPART) SLIDING SCALE If C... ACHS SC 06/14/17 07:00 07/14/17 06:59 06/18/17 19:12 3 UNITS Insulin Aspart (novoLOG ASPART) 26 units TIDM SQ 06/14/17 07:30 07/14/17 07:29 Future Hold Ondansetron HCl (Zofran Inj) 4 mg Q6H PRN IV 06/15/17 15:00 07/15/17 14:59 06/21/17 06:16 4 MG Promethazine HCl 25 mg/Sodium Chloride 51 ml @ 204 mls/hr Q6H PRN IV 06/14/17 23:30 07/14/17 23:29 06/21/17 08:57 204 MLS/HR Famotidine 20 mg/ Syringe 5 ml @ 2.5 mls/min BID IV 06/15/17 12:30 07/15/17 12:29 06/21/17 08:36 2.5 MLS/MIN Insulin Glargine (Lantus Solostar Pen) 68 units HS SC 06/19/17 22:00 07/15/17 00:00 Future hold Potassium Chloride/Sodium Chloride 1,000 ml @ 50 mls/hr Q20H IV 06/19/17 20:30 07/19/17 20:29 06/20/17 17:14 50 MLS/HR Pantoprazole Sodium 40 mg/ Syringe 10 ml @ 5 mls/min DAILY@2100 IV 06/20/17 21:00 07/20/17 20:59 06/20/17 21:06 5 MLS/MIN Sucralfate (Carafate Susp) 1 gm QID PO 06/20/17 17:00 07/20/17 16:59 06/21/17 09:34 1 GM Potassium Chloride 10 meq/ Prmx 100 ml @ 100 mls/hr Q1H IV 06/21/17 09:00 06/21/17 12:59 Magnesium Sulfate 1 gm/Prmx 100 ml @ 100 mls/hr NOW ONCE IV 06/21/17 09:00 06/21/17 09:59 06/21/17 09:28 100 MLS/HR Objective Vital Signs Date Time Temp Pulse Resp B/P (MAP) Pulse Ox O2 Delivery O2 Flow Rate FiO2 06/21/17 07:31 36.8 101 18 93/58 (70) 94 Room Air 06/21/17 00:12 36.9 97 18 132/75 (94) 92 Room Air 06/20/17 23:50 95 Room Air 06/20/17 20:00 37.8 94 18 127/76 (93) 95 Room Air 06/20/17 18:54 37.0 94 18 117/66 (83) 95 Room Air 06/20/17 17:50 36.8 94 18 134/74 (94) 97 Room Air 06/20/17 17:20 36.9 91 18 127/76 (93) 96 Room Air 06/20/17 16:55 89 16 106/48 (67) 95 Room Air 06/20/17 16:40 86 16 121/67 (85) 95 Room Air 06/20/17 16:25 90 16 116/68 (84) 97 Room Air 06/20/17 16:00 95 Room Air 06/20/17 15:22 36.3 90 16 111/65 (80) 95 Room Air 06/20/17 15:21 36.7 93 18 125/74 (91) 95 Room Air Physical Exam General Appearance: no apparent distress Respiratory/Chest: lungs clear Cardiovascular: regular rate, rhythm Abdomen: normal bowel sounds, non tender, soft Neurologic/Psych: alert Skin: warm/dry Laboratory Results Last 24 Hours Test 06/20/17 11:54 06/20/17 17:16 06/20/17 20:02 06/21/17 07:30 Bedside Glucose 145 mg/dl 111 mg/dl 105 mg/dl White Blood Count 14.06 K/uL Red Blood Count 5.95 M/uL Hemoglobin 14.7 g/dL Hematocrit 45.0 % Mean Corpuscular Volume 75.6 fL Mean Corpuscular Hemoglobin 24.7 pg Mean Corpuscular Hemoglobin Concent 32.7 g/dl Platelet Count 263 K/uL Mean Platelet Volume 11.0 fL Neutrophils (%) (Auto) 71.1 % Lymphocytes (%) (Auto) 16.9 % Monocytes (%) (Auto) 9.9 % Eosinophils (%) (Auto) 1.4 % Basophils (%) (Auto) 0.3 % Neutrophils # (Auto) 10.00 K/uL Lymphocytes # (Auto) 2.37 K/uL Monocytes # (Auto) 1.39 K/uL Eosinophils # (Auto) 0.20 K/uL Basophils # (Auto) 0.04 K/uL RDW Standard Deviation 46.4 fL RDW Coefficient of Variation 17.3 % Immature Granulocyte % (Auto) 0.4 % Immature Granulocyte # (Auto) 0.06 K/uL Sodium Level 136 mmol/L Potassium Level 3.2 mmol/L Chloride Level 103 mmol/L Carbon Dioxide Level 22 mmol/L Anion Gap 12.0 mmol/L Blood Urea Nitrogen 25 mg/dl Creatinine 1.11 mg/dl Est Creatinine Clear Calc Drug Dose 60.7 ml/min Estimated GFR () 60.8 Estimated GFR (Non- 52.4 BUN/Creatinine Ratio 22.6 Random Glucose 164 mg/dl Calcium Level 7.3 mg/dl Magnesium Level 1.2 mg/dl Test 06/21/17 07:45 Bedside Glucose 155 mg/dl Assessment and Plan Patient is a 66 year old female admitted with nausea, vomiting and diarrhea with persistent symptoms despite supportive care. 1. Reinforced the importance of taking medications as prescribed. Patient verbalized agreement to take Carafate which is prescribed 1 g ACHS. 2. Await path as pending. 3. Supportive care per primary team. Agree with CHANDRA Gill as above Abd: Soft, NT, ND, +BS Continue current therapy Path results are pending Continue supportive care
[2017-06-21] MEDS: POTASSIUM CHLR 10 MEQ / WTR 10 MEQ in PREMIXED WATER 100 ML IV SCH ×4 (10:00→15:20)
[2017-06-21 15:40] VITALS: BP 130/84; PULSE 100; TEMP 36.9; O2SAT 95
[2017-06-21 16:00] VITALS: O2SAT 95
[2017-06-21 16:13] VITALS: Ht 165.1 cm; Wt 102.3 kg
[2017-06-21] MEDS: PANTOprazole INJ 40 MG in SYRINGE 0 ML IV SCH (20:54)
[2017-06-21] MEDS: VENLAFAXINE HCL XR 150 MG CAPXR PO SCH (20:56)
[2017-06-21] MEDS: MIRTAZAPINE TAB 15 MG TAB PO SCH (20:57)
[2017-06-21] MEDS: INSULIN GLARGINE SOLOSTAR 100 UNITS/ML 3 ML PEN SC SCH (21:06)
[2017-06-21] MEDS: SODIUM CHLOR 0.45% + 20MEQ KCL 1,000 ML IV SCH (21:49)
[2017-06-22] MEDS: LEVOTHYROXINE 150 MCG TAB PO SCH (06:08)
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
[2017-06-22] MEDS: INSULIN ASPART 100 UNITS/ML 3 ML PEN SC SCH ×4 (06:30→22:00)
[2017-06-22 07:09] VITALS: BP 135/77; PULSE 102; TEMP 37; O2SAT 98
[2017-06-22 08:00] VITALS: O2SAT 98
[2017-06-22] MEDS: FAMOTIDINE IV INJ 20 MG in SYRINGE 3 ML IV SCH ×3 (08:00→20:00)
[2017-06-22] MEDS: ASPIRIN 81 MG ECTAB PO SCH (08:00)
[2017-06-22] MEDS: PREGABALIN 150 MG CAP PO SCH (08:00)
[2017-06-22] MEDS: SUCRALFATE 1 GM/10 ML UDC PO SCH ×5 (08:00→20:00)
[2017-06-22] MEDS: POTASSIUM CHLORIDE 20 MEQ TABCR PO SCH (08:00)
[2017-06-22] MEDS: VENLAFAXINE HCL XR 75 MG CAPXR PO SCH (08:00)
[2017-06-22] MEDS: PAROXETINE 20 MG TAB PO SCH (08:00)
[2017-06-22] MEDS: CLOPIDOGREL BISULFATE 75 MG TAB PO SCH (08:00)
[2017-06-22] MEDS: SODIUM CHLOR 0.45% + 20MEQ KCL 1,000 ML IV SCH ×2 (08:31→23:40)
[2017-06-22] MEDS: OXYBUTYNIN CHLORIDE 5 MG TAB PO SCH ×2 (08:31→20:00)
[2017-06-22] MEDS: CARVEDILOL 6.25 MG TAB PO SCH ×2 (08:31→20:00)
[2017-06-22] MEDS: MAGNESIUM OXIDE 400 MG TAB PO SCH ×2 (08:31→20:00)
[2017-06-22] MEDS: ETHACRYNIC ACID 25 MG TAB PO SCH ×2 (08:32→20:00)
[2017-06-22] MEDS: SPIRONOLACTONE 25 MG TAB PO SCH ×2 (08:32→17:18)
[2017-06-22 09:14] LABS: BASO % 0.3 %; BASO ABS # 0.05 K/uL (0-0.2); EOS ABS # 0.31 K/uL (0-0.5); HEMATOCRIT 45.6 % (37-47); HEMOGLOBIN 14.9 g/dL (12.0-16.0); LYMPH ABS # 2.68 K/uL (1.2-3.4); MEAN CELL VOLUME 75.6 fL (80-100); MEAN CORPUSCULAR HEMOGLOBIN 24.7 pg (25-34); MEAN CORPUSCULAR HGB CONC 32.7 g/dl (32-36); MONO % 9.8 %; MONO ABS # 1.54 K/uL (0.11-0.59); NEUT % 70.3 %; NEUT ABS # 11.11 K/uL (1.4-6.5); PLATELET COUNT 257 K/uL (130-400); RED CELL DISTRIBUTION WIDTH CV 17.4 % (11.5-14.5); RED CELL DISTRIBUTION WIDTH SD 46.9 fL (36.4-46.3); WHITE BLOOD COUNT 15.79 K/uL (4.8-10.8)
[2017-06-22 09:46] LABS: CALCIUM 8.1 mg/dl (8.5-10.1); CREATININE 1.07 mg/dl (0.60-1.20); POTASSIUM 3.5 mmol/L (3.5-5.1)
[2017-06-22] MEDS ORDERED: SODIUM CHLOR 0.45% + 20MEQ KCL 1,000 ML IV SCH (11:30)
[2017-06-22] MEDS ORDERED: OPTIRAY 320 IV PRN (11:30)
[2017-06-22] MEDS ORDERED: MAGNESIUM SULFATE 1GM / D5W 1 GM in PREMIXED IN D5W 100 ML IV ONE (12:00)
--- NOTE | 2017-06-22 15:03 | DIAGNOSTIC IMAGING REPORT ---
ABD/PELVIS IV CONTRAST ONLY CLINICAL HISTORY: 66 years-old Female presenting with ongoing diarrhea, new RLQ ttp, eval appy vs colitis . TECHNIQUE: Multidetector CT of the abdomen and pelvis was performed after the administration of intravenous contrast. IV contrast: 06/13/2017. A dose lowering technique was used consistent with the principles of ALARA (as low as reasonably achievable). COMPARISON: 06/13/2017. CT DOSE (mGy.cm): The estimated cumulative dose is 1108.51 mGycm. FINDINGS: [employer] topogram: Median sternotomy wires noted. Lung bases: Lungs and pleural spaces clear. Top normal heart size. Coronary artery calcification. No pericardial or pleural effusion. Liver: Normal morphology. No liver lesion. Patent hepatic vasculature. Biliary: No intrahepatic or extrahepatic biliary ductal dilatation. Gallbladder is distended though no mass effect is evident on the overlying abdominal wall, which favors physiologic distention. No radiopaque gallstones. No gallbladder wall thickening or pericholecystic fluid or inflammatory change. Pancreas: Mild parenchymal atrophy. Spleen: Normal. Adrenal glands: Fat-containing lesion in the medial limb of the left adrenal gland consistent with known myelolipoma. The patient is status post resection of the right adrenal myelolipoma. Kidneys and ureters: Prominent lobulations. Otherwise normal renal parenchyma. No nephrolithiasis. No hydronephrosis. Ureters normal. Bladder: Normal. Pelvic organs: Uterus surgically absent. Left adnexal mass is unchanged since prior CT from 04/12/2016. This measures 5.1 x 3.0 cm and may represent an abnormally prominent ovary. The right ovary is not visualized. Bowel: Fluid noted throughout the small and large bowel consistent with a diarrheal state. No wall thickening or pericolonic or perienteric inflammatory change. The appendix is normal. No bowel obstruction. Mild submucosal edema also suggested of the gastric antrum. Peritoneal cavity: No free fluid or intraperitoneal gas. Lymph nodes: No enlarged lymph nodes in the abdomen or pelvis. Vasculature: Atherosclerosis of the normal caliber abdominal aorta. IVC patent. Abdominal wall: Normal. Musculoskeletal: Degenerative changes of the spine. IMPRESSION: 1. Fluid noted throughout small and large bowel consistent with a diarrheal state. 2. Left adnexal mass measuring 5.1 x 3.0 which has been stable since CT from 04/12/2016. This is indeterminate. If this represents the left ovary, this is abnormally prominent in the postmenopausal setting. If this has not already already been evaluated with dedicated pelvic ultrasound, further evaluation is recommended. 3. No evidence of appendicitis. Electronically signed by: José Miguel Drake M.D. 06/22/2017 3:02 PM Dictated Date/Time: 06/22/2017 2:48 PM
[2017-06-22 15:34] VITALS: O2SAT 98
[2017-06-22 16:39] VITALS: BP 115/77; PULSE 91; TEMP 37.2; O2SAT 95
[2017-06-22] MEDS: VENLAFAXINE HCL XR 150 MG CAPXR PO SCH (21:00)
[2017-06-22] MEDS: PANTOprazole INJ 40 MG in SYRINGE 0 ML IV SCH (21:00)
[2017-06-22] MEDS: MIRTAZAPINE TAB 15 MG TAB PO SCH (22:00)
[2017-06-22] MEDS: INSULIN GLARGINE SOLOSTAR 100 UNITS/ML 3 ML PEN SC SCH (22:00)
[2017-06-22 23:26] VITALS: BP 123/81; PULSE 100; TEMP 36.5; O2SAT 96
[2017-06-23] MEDS: LEVOTHYROXINE 150 MCG TAB PO SCH (06:17)
[2017-06-23 07:35] VITALS: BP 122/85; PULSE 93; TEMP 36.3; O2SAT 96
[2017-06-23 07:48] LABS: BASO % 0.3 %; BASO ABS # 0.05 K/uL (0-0.2); EOS % 2.9 %; EOS ABS # 0.45 K/uL (0-0.5); HEMATOCRIT 45.2 % (37-47); HEMOGLOBIN 14.7 g/dL (12.0-16.0); IG# 0.09 K/uL (0.00-0.02); LYMPH % 21.5 %; LYMPH ABS # 3.34 K/uL (1.2-3.4); MEAN CELL VOLUME 75.7 fL (80-100); MEAN CORPUSCULAR HEMOGLOBIN 24.6 pg (25-34); MEAN CORPUSCULAR HGB CONC 32.5 g/dl (32-36); MONO % 14.5 %; MONO ABS # 2.25 K/uL (0.11-0.59); NEUT % 60.2 %; NEUT ABS # 9.37 K/uL (1.4-6.5); PLATELET COUNT 281 K/uL (130-400); RED CELL DISTRIBUTION WIDTH CV 17.5 % (11.5-14.5); RED CELL DISTRIBUTION WIDTH SD 47.3 fL (36.4-46.3); WHITE BLOOD COUNT 15.55 K/uL (4.8-10.8)
[2017-06-23 08:16] LABS: CALCIUM 8.3 mg/dl (8.5-10.1); CREATININE 1.01 mg/dl (0.60-1.20); POTASSIUM 3.5 mmol/L (3.5-5.1)
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
[2017-06-23] MEDS: SUCRALFATE 1 GM/10 ML UDC PO SCH ×4 (09:46→20:53)
[2017-06-23] MEDS: FAMOTIDINE IV INJ 20 MG in SYRINGE 3 ML IV SCH ×2 (09:46→20:53)
[2017-06-23] MEDS: INSULIN ASPART 100 UNITS/ML 3 ML PEN SC SCH ×4 (09:46→21:08)
[2017-06-23] MEDS: PREGABALIN 150 MG CAP PO SCH (09:47)
[2017-06-23] MEDS: OXYBUTYNIN CHLORIDE 5 MG TAB PO SCH ×2 (09:47→20:57)
[2017-06-23] MEDS: MAGNESIUM OXIDE 400 MG TAB PO SCH ×2 (09:47→20:57)
[2017-06-23] MEDS: ETHACRYNIC ACID 25 MG TAB PO SCH ×2 (09:47→20:58)
[2017-06-23] MEDS: ASPIRIN 81 MG ECTAB PO SCH (09:47)
[2017-06-23] MEDS: CARVEDILOL 6.25 MG TAB PO SCH ×2 (09:47→20:59)
[2017-06-23] MEDS: VENLAFAXINE HCL XR 75 MG CAPXR PO SCH (09:47)
[2017-06-23] MEDS: POTASSIUM CHLORIDE 20 MEQ TABCR PO SCH (09:47)
[2017-06-23] MEDS: PAROXETINE 20 MG TAB PO SCH (09:48)
[2017-06-23] MEDS: CLOPIDOGREL BISULFATE 75 MG TAB PO SCH (09:48)
[2017-06-23] MEDS: SPIRONOLACTONE 25 MG TAB PO SCH ×2 (09:48→17:50)
[2017-06-23] MEDS: LACTOBACILLUS ACIDOPHILUS (FLORANEX) TAB PO SCH ×2 (11:44→17:51)
[2017-06-23] MEDS ORDERED: MAGNESIUM SULFATE 1GM / D5W 1 GM in PREMIXED IN D5W 100 ML IV ONE (13:30)
[2017-06-23 16:31] VITALS: BP 99/64; PULSE 86; TEMP 36.7; O2SAT 94
[2017-06-23] MEDS: BOOST GLUCOSE CONTROL PO SCH (17:49)
[2017-06-23] MEDS: MIRTAZAPINE TAB 15 MG TAB PO SCH (20:58)
[2017-06-23] MEDS: VENLAFAXINE HCL XR 150 MG CAPXR PO SCH (20:59)
[2017-06-23] MEDS: PANTOprazole INJ 40 MG in SYRINGE 0 ML IV SCH (21:00)
[2017-06-23 21:02] VITALS: BP 127/71; PULSE 78
[2017-06-23] MEDS: INSULIN GLARGINE SOLOSTAR 100 UNITS/ML 3 ML PEN SC SCH (21:08)
[2017-06-23 23:35] VITALS: BP 117/66; PULSE 100; TEMP 37.2; O2SAT 94
[2017-06-23] MEDS: TRAMADOL HCL 50 MG TAB PO PRN (23:41)
[2017-06-23] MEDS: SODIUM CHLOR 0.45% + 20MEQ KCL 1,000 ML IV SCH (23:59)
[2017-06-24 07:36] VITALS: BP 127/77; PULSE 100; TEMP 36.9; O2SAT 97
[2017-06-24 08:44] LABS: BASO % 0.6 %; BASO ABS # 0.07 K/uL (0-0.2); EOS % 1.9 %; EOS ABS # 0.24 K/uL (0-0.5); HEMATOCRIT 44.1 % (37-47); HEMOGLOBIN 14.4 g/dL (12.0-16.0); LYMPH % 27.5 %; LYMPH ABS # 3.41 K/uL (1.2-3.4); MEAN CORPUSCULAR HEMOGLOBIN 24.5 pg (25-34); MEAN CORPUSCULAR HGB CONC 32.7 g/dl (32-36); MEAN PLATELET VOLUME 11.4 fL (7.4-10.4); MONO % 11.6 %; MONO ABS # 1.44 K/uL (0.11-0.59); NEUT % 57.6 %; NEUT ABS # 7.13 K/uL (1.4-6.5); PLATELET COUNT 274 K/uL (130-400); RED CELL DISTRIBUTION WIDTH CV 17.4 % (11.5-14.5); WHITE BLOOD COUNT 12.39 K/uL (4.8-10.8)
[2017-06-24] MEDS: BOOST GLUCOSE CONTROL PO SCH ×2 (08:57→15:58)
[2017-06-24] MEDS: SUCRALFATE 1 GM/10 ML UDC PO SCH ×4 (08:57→21:30)
[2017-06-24] MEDS: LEVOTHYROXINE 150 MCG TAB PO SCH (08:58)
[2017-06-24] MEDS: FAMOTIDINE IV INJ 20 MG in SYRINGE 3 ML IV SCH ×2 (08:58→21:30)
[2017-06-24] MEDS: CLOPIDOGREL BISULFATE 75 MG TAB PO SCH (09:00)
[2017-06-24] MEDS: ASPIRIN 81 MG ECTAB PO SCH (09:00)
[2017-06-24] MEDS: OXYBUTYNIN CHLORIDE 5 MG TAB PO SCH ×2 (09:00→21:34)
[2017-06-24] MEDS: VENLAFAXINE HCL XR 75 MG CAPXR PO SCH ×2 (09:00→21:38)
[2017-06-24] MEDS: SPIRONOLACTONE 25 MG TAB PO SCH ×2 (09:01→17:12)
[2017-06-24] MEDS: PAROXETINE 20 MG TAB PO SCH (09:01)
[2017-06-24] MEDS: ETHACRYNIC ACID 25 MG TAB PO SCH ×2 (09:01→21:33)
[2017-06-24] MEDS: MAGNESIUM OXIDE 400 MG TAB PO SCH ×2 (09:01→21:31)
[2017-06-24] MEDS: LACTOBACILLUS ACIDOPHILUS (FLORANEX) TAB PO SCH ×3 (09:02→17:00)
[2017-06-24] MEDS: SODIUM CHLOR 0.45% + 20MEQ KCL 1,000 ML IV SCH (09:02)
[2017-06-24] MEDS: POTASSIUM CHLORIDE 20 MEQ TABCR PO SCH (09:02)
[2017-06-24] MEDS: CARVEDILOL 6.25 MG TAB PO SCH ×2 (09:04→21:33)
[2017-06-24] MEDS: INSULIN ASPART 100 UNITS/ML 3 ML PEN SC SCH ×4 (09:08→21:36)
[2017-06-24] MEDS: PREGABALIN 150 MG CAP PO SCH (09:10)
[2017-06-24] MEDS: TRAMADOL HCL 50 MG TAB PO PRN (09:10)
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
[2017-06-24 09:16] LABS: CALCIUM 8.9 mg/dl (8.5-10.1); CREATININE 0.96 mg/dl (0.60-1.20)
[2017-06-24 10:10] LABS: POTASSIUM 3.7 mmol/L (3.5-5.1)
[2017-06-24] MEDS ORDERED: MAGNESIUM SULFATE 1GM / D5W 1 GM in PREMIXED IN D5W 100 ML IV ONE (10:45)
[2017-06-24 14:54] VITALS: BP 135/77; PULSE 94; TEMP 36.9; O2SAT 94
[2017-06-24 16:49] VITALS: O2SAT 94
[2017-06-24] MEDS: PANTOprazole INJ 40 MG in SYRINGE 0 ML IV SCH (21:31)
[2017-06-24] MEDS: VENLAFAXINE HCL XR 150 MG CAPXR PO SCH (21:36)
[2017-06-24] MEDS: MIRTAZAPINE TAB 15 MG TAB PO SCH (21:36)
[2017-06-24] MEDS: INSULIN GLARGINE SOLOSTAR 100 UNITS/ML 3 ML PEN SC SCH (21:38)
[2017-06-25 00:29] VITALS: BP 131/84; PULSE 105; TEMP 37.1; O2SAT 95
[2017-06-25] MEDS: SODIUM CHLOR 0.45% + 20MEQ KCL 1,000 ML IV SCH ×2 (05:44→18:36)
[2017-06-25] MEDS: LEVOTHYROXINE 150 MCG TAB PO SCH (05:45)
[2017-06-25 06:36] LABS: BASO % 0.4 %; BASO ABS # 0.05 K/uL (0-0.2); EOS % 2.1 %; EOS ABS # 0.26 K/uL (0-0.5); HEMATOCRIT 44.3 % (37-47); HEMOGLOBIN 14.3 g/dL (12.0-16.0); IG# 0.11 K/uL (0.00-0.02); LYMPH % 25.7 %; LYMPH ABS # 3.22 K/uL (1.2-3.4); MEAN CELL VOLUME 75.5 fL (80-100); MEAN CORPUSCULAR HEMOGLOBIN 24.4 pg (25-34); MEAN CORPUSCULAR HGB CONC 32.3 g/dl (32-36); MEAN PLATELET VOLUME 10.9 fL (7.4-10.4); MONO % 12.6 %; MONO ABS # 1.58 K/uL (0.11-0.59); NEUT % 58.3 %; NEUT ABS # 7.33 K/uL (1.4-6.5); PLATELET COUNT 255 K/uL (130-400); RED CELL DISTRIBUTION WIDTH CV 17.7 % (11.5-14.5); RED CELL DISTRIBUTION WIDTH SD 47.7 fL (36.4-46.3); WHITE BLOOD COUNT 12.55 K/uL (4.8-10.8)
[2017-06-25 07:11] LABS: CALCIUM 8.8 mg/dl (8.5-10.1); CREATININE 0.81 mg/dl (0.60-1.20); POTASSIUM 3.8 mmol/L (3.5-5.1)
[2017-06-25 07:22] VITALS: BP 107/64; PULSE 101; TEMP 37; O2SAT 94
[2017-06-25 08:00] VITALS: O2SAT 94
[2017-06-25] MEDS: INSULIN ASPART 100 UNITS/ML 3 ML PEN SC SCH ×4 (09:00→21:52)
[2017-06-25] MEDS: SUCRALFATE 1 GM/10 ML UDC PO SCH ×4 (10:30→20:00)
[2017-06-25] MEDS: FAMOTIDINE IV INJ 20 MG in SYRINGE 3 ML IV SCH ×2 (10:30→20:00)
[2017-06-25] MEDS: POTASSIUM CHLORIDE 20 MEQ TABCR PO SCH (10:31)
[2017-06-25] MEDS: CLOPIDOGREL BISULFATE 75 MG TAB PO SCH (10:32)
[2017-06-25] MEDS: PAROXETINE 20 MG TAB PO SCH (10:33)
[2017-06-25] MEDS: MAGNESIUM OXIDE 400 MG TAB PO SCH ×2 (10:33→20:00)
[2017-06-25] MEDS: LACTOBACILLUS ACIDOPHILUS (FLORANEX) TAB PO SCH ×3 (10:33→18:37)
[2017-06-25] MEDS: ETHACRYNIC ACID 25 MG TAB PO SCH ×2 (10:34→20:00)
[2017-06-25] MEDS: SPIRONOLACTONE 25 MG TAB PO SCH ×2 (10:34→18:38)
[2017-06-25] MEDS: ASPIRIN 81 MG ECTAB PO SCH (10:34)
[2017-06-25] MEDS: CARVEDILOL 6.25 MG TAB PO SCH ×2 (10:34→20:00)
[2017-06-25] MEDS: OXYBUTYNIN CHLORIDE 5 MG TAB PO SCH ×2 (10:34→20:00)
[2017-06-25] MEDS: BOOST GLUCOSE CONTROL PO SCH ×2 (10:35→17:00)
[2017-06-25] MEDS: PREGABALIN 150 MG CAP PO SCH (10:38)
[2017-06-25] MEDS: MAGNESIUM SULFATE 1GM / D5W 1 GM in PREMIXED IN D5W 100 ML IV SCH ×2 (10:38→12:01)
[2017-06-25 15:23] VITALS: BP 100/66; PULSE 93; TEMP 37.6; O2SAT 96
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
[2017-06-25] MEDS ORDERED: LOPERAMIDE HCL 2 MG CAP PO PRN (16:15)
[2017-06-25] MEDS: VENLAFAXINE HCL XR 150 MG CAPXR PO SCH (21:00)
[2017-06-25] MEDS: PANTOprazole INJ 40 MG in SYRINGE 0 ML IV SCH (21:00)
[2017-06-25] MEDS: INSULIN GLARGINE SOLOSTAR 100 UNITS/ML 3 ML PEN SC SCH (21:52)
[2017-06-25] MEDS: MIRTAZAPINE TAB 15 MG TAB PO SCH (21:52)
[2017-06-26 00:12] VITALS: BP 116/75; PULSE 98; TEMP 36.9; O2SAT 98
[2017-06-26] MEDS: LEVOTHYROXINE 150 MCG TAB PO SCH (05:47)
[2017-06-26 06:20] LABS: BASO % 0.3 %; BASO ABS # 0.05 K/uL (0-0.2); EOS ABS # 0.29 K/uL (0-0.5); HEMATOCRIT 46.3 % (37-47); HEMOGLOBIN 15.1 g/dL (12.0-16.0); IG# 0.13 K/uL (0.00-0.02); LYMPH % 19.2 %; LYMPH ABS # 2.78 K/uL (1.2-3.4); MEAN CELL VOLUME 75.5 fL (80-100); MEAN CORPUSCULAR HEMOGLOBIN 24.6 pg (25-34); MEAN CORPUSCULAR HGB CONC 32.6 g/dl (32-36); MEAN PLATELET VOLUME 11.9 fL (7.4-10.4); MONO % 10.1 %; MONO ABS # 1.47 K/uL (0.11-0.59); NEUT % 67.5 %; NEUT ABS # 9.79 K/uL (1.4-6.5); PLATELET COUNT 292 K/uL (130-400); RED CELL DISTRIBUTION WIDTH CV 17.7 % (11.5-14.5); RED CELL DISTRIBUTION WIDTH SD 48.4 fL (36.4-46.3); WHITE BLOOD COUNT 14.51 K/uL (4.8-10.8)
[2017-06-26 06:52] LABS: CALCIUM 8.5 mg/dl (8.5-10.1); CREATININE 1.13 mg/dl (0.60-1.20); PHOSPHORUS 3.5 mg/dl (2.5-4.9); POTASSIUM 3.5 mmol/L (3.5-5.1)
[2017-06-26 07:11] VITALS: BP 122/74; PULSE 104; TEMP 36.4; O2SAT 98
[2017-06-26] MEDS: FAMOTIDINE IV INJ 20 MG in SYRINGE 3 ML IV SCH ×3 (07:43→20:00)
[2017-06-26] MEDS: MAGNESIUM SULFATE 1GM / D5W 1 GM in PREMIXED IN D5W 100 ML IV SCH ×2 (09:33→11:48)
[2017-06-26] MEDS: INSULIN ASPART 100 UNITS/ML 3 ML PEN SC SCH ×4 (09:36→21:50)
[2017-06-26] MEDS: BOOST GLUCOSE CONTROL PO SCH ×2 (09:37→17:00)
[2017-06-26] MEDS: OXYBUTYNIN CHLORIDE 5 MG TAB PO SCH ×2 (09:37→21:23)
[2017-06-26] MEDS: CARVEDILOL 6.25 MG TAB PO SCH ×2 (09:37→21:23)
[2017-06-26] MEDS: SUCRALFATE 1 GM/10 ML UDC PO SCH ×3 (09:37→16:41)
[2017-06-26] MEDS: LACTOBACILLUS ACIDOPHILUS (FLORANEX) TAB PO SCH ×3 (09:38→16:41)
[2017-06-26] MEDS: ETHACRYNIC ACID 25 MG TAB PO SCH ×2 (09:38→21:23)
[2017-06-26] MEDS: POTASSIUM CHLORIDE 20 MEQ TABCR PO SCH (09:38)
[2017-06-26] MEDS: VENLAFAXINE HCL XR 75 MG CAPXR PO SCH (09:38)
[2017-06-26] MEDS: PREGABALIN 150 MG CAP PO SCH (09:38)
[2017-06-26] MEDS: ASPIRIN 81 MG ECTAB PO SCH (09:38)
[2017-06-26] MEDS: PAROXETINE 20 MG TAB PO SCH (09:39)
[2017-06-26] MEDS: MAGNESIUM OXIDE 400 MG TAB PO SCH ×2 (09:39→21:24)
[2017-06-26] MEDS: SPIRONOLACTONE 25 MG TAB PO SCH ×2 (09:39→16:40)
[2017-06-26] MEDS: CLOPIDOGREL BISULFATE 75 MG TAB PO SCH (09:39)
[2017-06-26] MEDS: SODIUM CHLOR 0.45% + 20MEQ KCL 1,000 ML IV SCH (12:50)
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
[2017-06-26 15:13] VITALS: BP 136/71; PULSE 91; TEMP 36.6; O2SAT 100
[2017-06-26] MEDS: INSULIN GLARGINE SOLOSTAR 100 UNITS/ML 3 ML PEN SC SCH (21:15)
[2017-06-26 21:23] VITALS: BP 131/75; PULSE 97
[2017-06-26] MEDS: VENLAFAXINE HCL XR 150 MG CAPXR PO SCH (21:24)
[2017-06-26] MEDS: PANTOprazole SOD 40 MG TAB PO SCH (21:24)
[2017-06-26] MEDS: MIRTAZAPINE TAB 15 MG TAB PO SCH (21:25)
[2017-06-26 23:51] VITALS: BP 139/75; PULSE 96; TEMP 36.7; O2SAT 100
[2017-06-27] MEDS: LEVOTHYROXINE 150 MCG TAB PO SCH (05:13)
[2017-06-27] MEDS: INSULIN ASPART 100 UNITS/ML 3 ML PEN SC SCH ×4 (06:30→21:23)
[2017-06-27 07:05] LABS: BASO % 0.4 %; BASO ABS # 0.05 K/uL (0-0.2); EOS % 3.2 %; EOS ABS # 0.41 K/uL (0-0.5); HEMATOCRIT 42.5 % (37-47); HEMOGLOBIN 13.6 g/dL (12.0-16.0); LYMPH % 22.1 %; LYMPH ABS # 2.84 K/uL (1.2-3.4); MEAN CORPUSCULAR HEMOGLOBIN 24.3 pg (25-34); MEAN PLATELET VOLUME 11.6 fL (7.4-10.4); MONO ABS # 1.54 K/uL (0.11-0.59); NEUT % 61.5 %; NEUT ABS # 7.93 K/uL (1.4-6.5); PLATELET COUNT 294 K/uL (130-400); RED CELL DISTRIBUTION WIDTH CV 17.6 % (11.5-14.5); WHITE BLOOD COUNT 12.87 K/uL (4.8-10.8)
[2017-06-27 07:23] VITALS: BP 120/71; PULSE 91; TEMP 36.4; O2SAT 97
[2017-06-27] MEDS: FAMOTIDINE IV INJ 20 MG in SYRINGE 3 ML IV SCH ×2 (07:25→19:44)
[2017-06-27] MEDS: SODIUM CHLOR 0.45% + 20MEQ KCL 1,000 ML IV SCH ×2 (07:27→19:44)
[2017-06-27 07:34] LABS: CALCIUM 8.3 mg/dl (8.5-10.1); CREATININE 0.97 mg/dl (0.60-1.20); POTASSIUM 3.4 mmol/L (3.5-5.1)
[2017-06-27] MEDS: ETHACRYNIC ACID 25 MG TAB PO SCH ×2 (08:00→21:18)
[2017-06-27] MEDS: OXYBUTYNIN CHLORIDE 5 MG TAB PO SCH ×2 (08:00→21:18)
[2017-06-27] MEDS: CLOPIDOGREL BISULFATE 75 MG TAB PO SCH (08:00)
[2017-06-27] MEDS: MAGNESIUM OXIDE 400 MG TAB PO SCH ×2 (08:00→21:18)
[2017-06-27] MEDS: LACTOBACILLUS ACIDOPHILUS (FLORANEX) TAB PO SCH ×3 (08:00→17:36)
[2017-06-27] MEDS: POTASSIUM CHLORIDE 20 MEQ TABCR PO SCH (08:00)
[2017-06-27] MEDS: BOOST GLUCOSE CONTROL PO SCH ×2 (08:22→17:00)
[2017-06-27] MEDS: CARVEDILOL 6.25 MG TAB PO SCH ×2 (08:26→21:18)
[2017-06-27] MEDS: VENLAFAXINE HCL XR 75 MG CAPXR PO SCH (08:26)
[2017-06-27] MEDS: PAROXETINE 20 MG TAB PO SCH (08:26)
[2017-06-27] MEDS: SPIRONOLACTONE 25 MG TAB PO SCH ×2 (08:26→17:37)
[2017-06-27] MEDS: ASPIRIN 81 MG ECTAB PO SCH (08:26)
[2017-06-27] MEDS: PREGABALIN 150 MG CAP PO SCH (08:29)
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
[2017-06-27] MEDS ORDERED: MAGNESIUM SULFATE 1GM / D5W 1 GM in PREMIXED IN D5W 100 ML IV ONE (10:00)
[2017-06-27] MEDS: POTASSIUM CHLR 10 MEQ / WTR 10 MEQ in PREMIXED WATER 100 ML IV SCH ×4 (11:20→14:45)
[2017-06-27 16:13] VITALS: BP 129/79; PULSE 103; TEMP 36.3; O2SAT 97
[2017-06-27] MEDS: TRAMADOL HCL 50 MG TAB PO PRN (17:35)
[2017-06-27] MEDS ORDERED: TRAZODONE HCL 50 MG TAB PO SCH (21:00)
[2017-06-27 21:17] VITALS: BP 112/72; PULSE 85
[2017-06-27] MEDS: INSULIN GLARGINE SOLOSTAR 100 UNITS/ML 3 ML PEN SC SCH (21:19)
[2017-06-27] MEDS: MIRTAZAPINE TAB 15 MG TAB PO SCH (21:19)
[2017-06-27] MEDS: PANTOprazole SOD 40 MG TAB PO SCH (21:19)
[2017-06-27] MEDS: VENLAFAXINE HCL XR 150 MG CAPXR PO SCH (21:19)
[2017-06-27] MEDS: LOPERAMIDE HCL 2 MG CAP PO SCH (21:54)
[2017-06-27] MEDS: ONDANSETRON INJ 2 MG/ML 2 ML VIAL IV PRN (22:50)
[2017-06-28 00:45] VITALS: BP 149/82; PULSE 98; TEMP 37.5; O2SAT 95
[2017-06-28] MEDS: LEVOTHYROXINE 150 MCG TAB PO SCH (04:24)
[2017-06-28] MEDS: INSULIN ASPART 100 UNITS/ML 3 ML PEN SC SCH ×2 (06:30→12:31)
[2017-06-28 07:10] VITALS: BP 109/61; PULSE 78; TEMP 36.6; O2SAT 96
[2017-06-28 07:15] LABS: CALCIUM 8.7 mg/dl (8.5-10.1); CREATININE 0.97 mg/dl (0.60-1.20); POTASSIUM 4.1 mmol/L (3.5-5.1)
--- NOTE | 2017-06-28 07:20 | Family Medicine Progress Note ---
Progress Note Date of Service Jun 28, 2017. Medications Current Inpatient Medications Medications (Trade) Dose Ordered Sig/Frieda Route Start Time Stop Time Status Last Admin Dose Admin Magnesium Hydroxide (Milk Of Magnesia Susp) 30 ml Q12H PRN PO 06/13/17 23:30 07/13/17 23:29 Nitroglycerin (Nitrostat Tab) 0.4 mg UD PRN SL 06/13/17 23:30 07/13/17 23:29 Polyethylene (Miralax Powder Packet) 17 gm DAILY PRN PO 06/13/17 23:30 07/13/17 23:29 Miscellaneous (Iv Fluids Completed) 1 ea PRN PRN N/A 06/14/17 00:15 06/14/18 00:14 Aspirin (Ecotrin Tab) 81 mg DAILY PO 06/14/17 09:00 07/14/17 08:59 06/27/17 08:26 81 MG Carvedilol (Coreg Tab) 6.25 mg BID PO 06/14/17 09:00 07/14/17 08:59 06/27/17 21:18 6.25 MG Clopidogrel Bisulfate (plAVix TAB) 75 mg DAILY PO 06/14/17 09:00 07/14/17 08:59 06/25/17 10:32 75 MG Ethacrynic Acid (Edecrin Tab) 50 mg BID PO 06/14/17 09:00 07/14/17 08:59 06/27/17 21:18 50 MG Levothyroxine Sodium (Synthroid Tab) 150 mcg DAILYBB PO 06/15/17 06:00 07/15/17 05:59 06/28/17 04:24 150 MCG Magnesium Oxide (Mag-Ox Tab) 400 mg BID PO 06/14/17 09:00 07/14/17 08:59 06/27/17 21:18 400 MG Mirtazapine (Remeron Tab) 30 mg HS PO 06/14/17 21:00 07/14/17 20:59 06/27/17 21:19 30 MG Oxybutynin Chloride (Ditropan Tab) 5 mg BID PO 06/14/17 09:00 07/14/17 08:59 06/27/17 21:18 5 MG Potassium Chloride (Klor-Con Tab) 20 meq DAILY PO 06/14/17 09:00 07/14/17 08:59 06/17/17 08:57 20 MEQ Pregabalin (Lyrica Cap) 150 mg QAM PO 06/14/17 09:00 07/14/17 08:59 06/27/17 08:29 150 MG Spironolactone (Aldactone Tab) 25 mg BID17 PO 06/14/17 09:00 07/14/17 08:59 06/27/17 17:37 25 MG Tramadol HCl (Ultram Tab) 50 mg Q8 PRN PO 06/14/17 04:45 07/14/17 04:44 06/27/17 17:35 50 MG Venlafaxine HCl (effeXOR EXTENDED REL CAP) 75 mg QAM PO 06/14/17 09:00 07/14/17 08:59 06/27/17 08:26 75 MG Venlafaxine HCl (effeXOR EXTENDED REL CAP) 150 mg QPM PO 06/14/17 21:00 07/14/17 20:59 06/27/17 21:19 150 MG Glucagon (Glucagon Inj) 1 mg UD PRN SQ 06/14/17 19:15 07/14/17 19:14 Glucose (Glucose 40% Gel) 15-30 GRAMS 15 GRAMS... UD PRN PO 06/14/17 19:15 07/14/17 19:14 Glucose (Glucose Chew Tab) 4-8 Tablets 4 Tabl... UD PRN PO 06/14/17 19:15 07/14/17 19:14 Insulin Aspart (novoLOG ASPART) SLIDING SCALE If C... ACHS SC 06/14/17 07:00 07/14/17 06:59 06/27/17 21:23 2 UNITS Insulin Aspart (novoLOG ASPART) 26 units TIDM SQ 06/14/17 07:30 07/14/17 07:29 Future Hold Ondansetron HCl (Zofran Inj) 4 mg Q6H PRN IV 06/15/17 15:00 07/15/17 14:59 06/27/17 22:50 4 MG Promethazine HCl 25 mg/Sodium Chloride 51 ml @ 204 mls/hr Q6H PRN IV 06/14/17 23:30 07/14/17 23:29 06/21/17 08:57 204 MLS/HR Famotidine 20 mg/ Syringe 5 ml @ 2.5 mls/min BID IV 06/15/17 12:30 07/15/17 12:29 06/27/17 07:25 2.5 MLS/MIN Insulin Glargine (Lantus Solostar Pen) 68 units HS SC 06/19/17 22:00 07/15/17 00:00 Future hold 06/23/17 21:08 30 UNITS Potassium Chloride/Sodium Chloride 1,000 ml @ 50 mls/hr Q20H IV 06/19/17 20:30 07/19/17 20:29 Future hold 06/27/17 19:44 50 MLS/HR Lactobacillus Acidophilus (Floranex Tab) 4 tab TIDM PO 06/23/17 12:00 07/23/17 11:59 06/27/17 17:36 4 TAB Enteral Nutritional Formula (Boost Glucose Control) 1 can BIDM PO 06/25/17 17:00 07/25/17 16:59 06/27/17 17:00 1 CAN Pantoprazole Sodium (Protonix Tab) 40 mg QPM PO 06/26/17 21:00 07/26/17 20:59 06/27/17 21:19 40 MG Trazodone HCl (Desyrel Tab) 50 mg QPM PO 06/27/17 21:00 07/27/17 20:59 Loperamide HCl (Imodium Cap) 2 mg BID PO 06/27/17 20:00 07/27/17 19:59 06/27/17 21:54 2 MG Objective Vital Signs Date Time Temp Pulse Resp B/P (MAP) Pulse Ox O2 Delivery O2 Flow Rate FiO2 06/28/17 07:10 36.6 78 20 109/61 (77) 96 Room Air 06/28/17 00:45 37.5 98 18 149/82 (104) 95 Room Air 06/28/17 00:00 Room Air 06/27/17 21:17 85 112/72 (85) 06/27/17 16:13 36.3 103 16 129/79 (96) 97 Room Air 06/27/17 16:00 Room Air 06/27/17 08:00 Room Air 06/27/17 07:23 36.4 91 18 120/71 (87) 97 Room Air Laboratory Results 06/28/17 06:14 Test 06/27/17 20:13 06/28/17 06:14 Bedside Glucose 183 mg/dl (70-90) Anion Gap 6.0 mmol/L (3-11) Est Creatinine Clear Calc Drug Dose 69.5 ml/min Estimated GFR () 71.5 Estimated GFR (Non- 61.7 BUN/Creatinine Ratio 13.6 (10-20) Calcium Level 8.7 mg/dl (8.5-10.1) Magnesium Level 1.5 mg/dl (1.8-2.4) Resident Tracking Resident Involvement: Resident Care Provided Care Provided: Adult Hospital Medicine (inpatient)
[2017-06-28] MEDS ORDERED: MAGNESIUM SULFATE 1GM / D5W 1 GM in PREMIXED IN D5W 100 ML IV ONE (07:30)
[2017-06-28] MEDS: FAMOTIDINE IV INJ 20 MG in SYRINGE 3 ML IV SCH (08:00)
[2017-06-28] MEDS: BOOST GLUCOSE CONTROL PO SCH (08:15)
[2017-06-28] MEDS: OXYBUTYNIN CHLORIDE 5 MG TAB PO SCH (08:17)
[2017-06-28] MEDS: LACTOBACILLUS ACIDOPHILUS (FLORANEX) TAB PO SCH ×2 (08:17→12:00)
[2017-06-28] MEDS: CARVEDILOL 6.25 MG TAB PO SCH (08:17)
[2017-06-28] MEDS: ETHACRYNIC ACID 25 MG TAB PO SCH (08:17)
[2017-06-28] MEDS: VENLAFAXINE HCL XR 75 MG CAPXR PO SCH (08:18)
[2017-06-28] MEDS: POTASSIUM CHLORIDE 20 MEQ TABCR PO SCH (08:18)
[2017-06-28] MEDS: ASPIRIN 81 MG ECTAB PO SCH (08:18)
[2017-06-28] MEDS: CLOPIDOGREL BISULFATE 75 MG TAB PO SCH (08:18)
[2017-06-28] MEDS: SPIRONOLACTONE 25 MG TAB PO SCH (08:18)
[2017-06-28] MEDS: MAGNESIUM OXIDE 400 MG TAB PO SCH (08:18)
[2017-06-28] MEDS: PREGABALIN 150 MG CAP PO SCH (08:22)
[2017-06-28] MEDS: LOPERAMIDE HCL 2 MG CAP PO SCH (08:44)
[2017-06-28] MEDS: ONDANSETRON INJ 2 MG/ML 2 ML VIAL IV PRN (09:36)
[2017-06-28] MEDS ORDERED: DSY50 PO (13:28)
--- NOTE | 2017-06-28 13:43 | Discharge Instructions ---
Discharge Instructions Date of Service Jun 28, 2017. Admission Reason for Admission: Acute Gastroenteritis Discharge Discharge Diagnosis / Problem: gastroenteritis, ongoing vomiting and diarrhea Discharge Goals Goal(s): Diagnostic testing Activity Recommendations Activity Level: Assistance Required Therapies: Physical Therapy, Occupational Therapy . Additional Information Patient informed of condition: Yes Advance Directives: Yes DNR: Yes Level of Care: Skilled Communicable Disease: No Prognosis: Stable Instructions / Follow-Up Instructions / Follow-Up see medical discharge summary - nausea/vomiting appearing mostly to be post- viral (initial presentation quite c/w viral GE) now ongoing intermittent n/v despite extensive w/u and treatment - ?post viral gastritis and/or malabsorption and possible anxiety overlay. ongoing clinical f/u pt also notes that she would prefer to have insulin control w goal fasting sugars above 100 Current Hospital Diet Patient's current hospital diet: Diabetes Type 2 Diet Discharge Diet Recommended Diet: Diabetes Type 2 Diet Procedures Procedures Performed: EGD WITH BX Pending Studies Studies pending at discharge: no Laboratory Results Hemoglobin A1c Test 05/19/17 11:38 Range/Units Estimated Average Glucose 229 mg/dl Hemoglobin A1c 9.6 H 4.5-5.6 % Medical Emergencies . Who to Call and When: Medical Emergencies: If at any time you feel your situation is an emergency, please call 911 immediately. . Non-Emergent Contact Non-Emergency issues call your: Primary Care Provider . . "Provider Documentation" section prepared by Enzo Rutledge. . Core Measure Problem Core Measures: None
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
[2017-06-28] MEDS: SODIUM CHLOR 0.45% + 20MEQ KCL 1,000 ML IV SCH (14:15)
[2017-06-28 14:48] VITALS: BP 116/74; PULSE 87; TEMP 36.8; O2SAT 98
== END 2017-06-28 15:45 | DRG 392 ==
LOC: EDBD 18:21 → C.EDB 18:22 → C.2T 23:34 → ENRESERV 23:45 → C.2T 06-14 09:03 → ENRESERV 06-14 12:04 → C.MS4W 06-14 13:27 → OBSVTOIN 06-14 13:55
PROVIDERS: ADMIT Student in an Organized Health Care Education/Training Program; ATTEND Family Medicine
PROC: 0DB68ZX Excision of Stomach, Via Natural or Artificial Opening Endoscopic, Diagnostic (ICD-10-PCS; principal; 2017-06-20 15:17)
DX: A08.4 Viral intestinal infection, unspecified (principal); E87.0 Hyperosmolality and hypernatremia; N17.9 Acute kidney failure, unspecified; E86.0 Dehydration; K29.70 Gastritis, unspecified, without bleeding; I11.0 Hypertensive heart disease with heart failure; I50.9 Heart failure, unspecified; E87.6 Hypokalemia; E83.42 Hypomagnesemia; E11.40 Type 2 diabetes mellitus with diabetic neuropathy, unspecified; K21.9 Gastro-esophageal reflux disease without esophagitis; E03.9 Hypothyroidism, unspecified; E78.5 Hyperlipidemia, unspecified; I25.10 Atherosclerotic heart disease of native coronary artery without angina pectoris; I25.5 Ischemic cardiomyopathy; J44.9 Chronic obstructive pulmonary disease, unspecified; E11.319 Type 2 diabetes mellitus with unspecified diabetic retinopathy without macular edema; G47.33 Obstructive sleep apnea (adult) (pediatric); F32.9 Major depressive disorder, single episode, unspecified; M54.9 Dorsalgia, unspecified; G89.29 Other chronic pain; Z66 Do not resuscitate; Z79.4 Long term (current) use of insulin; Z79.82 Long term (current) use of aspirin; Z79.899 Other long term (current) drug therapy; Z87.01 Personal history of pneumonia (recurrent); Z88.1 Allergy status to other antibiotic agents; Z88.2 Allergy status to sulfonamides; Z88.6 Allergy status to analgesic agent; Z91.040 Latex allergy status; Z95.1 Presence of aortocoronary bypass graft; Z87.891 Personal history of nicotine dependence; Z91.19 Patient's noncompliance with other medical treatment and regimen

== ENCOUNTER 2017-07-19 11:34 | Inpatient (IN) | payer OTHER ==
[~2017-07-19] VITALS: Ht 167.6 cm; Wt 105.6 kg
[~2017-07-19 11:34] MED LIST changes: -ALBINSX NEB; +ALBU18002 INH; +DSY50 PO; -PROAIR INH; -PXL20 PO
[2017-07-19] MEDS ORDERED: CEFEPIME IV 2,000 MG in DEXTROSE 5% 100ML 100 ML IV STA (11:53)
[2017-07-19] MEDS ORDERED: SODIUM CHLORIDE 0.9% 1000ML 500 ML IV STA (11:53)
--- NOTE | 2017-07-19 12:12 | EMERGENCY ROOM VISIT NOTE ---
History Report prepared by Annmarie: [place] Curiel Under the Supervision of: Dr. Andrew Cheek M.D. First contact with patient: 11:42 Stated Complaint: DIABETIC History of Present Illness The patient is a 66 year old female who presents to the Emergency Room with complaints of improving hypoglycemia noticed this morning. Per the nursing staff , the patient was found this morning on the ground, and she had bite magana on the right side of her tongue, and her blood sugar was only 28, though it has come up after receiving D10 in the ambulance. The patient states that she does not know what happened, though she is not in any pain currently. Per the patient 's family, the patient was not answering her phone last night, and they last talked to the patient two nights ago. They went to the patient's home this morning around 1030 and found her on the ground. The family notes that the patient was recently put on a blood pressure medication, though every time that she takes it she vomits and has diarrhea, so she stopped taking it when she got out of the hospital. She recently started taking it again after having some leg swelling, though stopped it since the symptoms reoccurred. The family notes that they were with the patient five days ago, and she was acting normally and walking around. On review of the EMR, the patient was discharged from the hospital on June 28 after being hypernatremic. Source of History: patient, family, nursing staff Onset: this morning Position: other (global) Quality: other (hypoglycemia) Timing: other (improving) Modifying Factors (Relieving): other (D10) Note: Associated symptoms: bite magana on her tongue Review of Systems See HPI for pertinent positives & negatives. A total of 10 systems reviewed and were otherwise negative. Past Medical & Surgical Medical Problems: (1) BLANCA (acute kidney injury) (2) Asthma (3) Benign hypertension (4) Dehydration (5) Diabetes mellitus (6) Diabetic foot infection (7) GERD (gastroesophageal reflux disease) (8) Hyperlipidemia (9) Hypomagnesemia (10) Influenza A with pneumonia (11) KAVIN on CPAP (12) Pneumonia (13) Pneumonia involving right lung (14) Systolic congestive heart failure (15) UTI (urinary tract infection) Family History No pertinent family history Social History Smoking Status: Former Smoker Alcohol Use: none Drug Use: none Marital Status: single Housing Status: lives alone Occupation Status: retired Current/Historical Medications Scheduled Aspirin (Aspirin Dr), 81 MG PO DAILY Carvedilol (Coreg), 6.25 MG PO BID Clopidogrel Bisulfate (Clopidogrel), 75 MG PO DAILY Ergocalciferol (Vitamin D 44313 Unit), 50,000 INTER.UNIT PO WK Insulin Glargine (Toujeo Solostar), 68 UNITS SQ QHS Insulin Lispro (Human) (Humalog Kwikpen), 20 UNITS SQ WM Levothyroxine Sodium (Levothyroxine Sodium), 150 MCG PO QAM Lisinopril (Lisinopril), 2.5 MG PO DAILY Magnesium Oxide (Mag-Ox), 400 MG PO BID Mirtazapine (Remeron), 30 MG PO HS Multiple Vitamins W/ Minerals (Multi For Her 50+), 1 CAP PO DAILY Oxybutynin Chloride (Ditropan), 5 MG PO BID Potassium Chloride (Klor-Con M20), 20 MEQ PO DAILY Pramipexole Dihydrochloride (Pramipexole Dihydrochlori), 0.75 MG PO QPM Pregabalin (Lyrica), 150 MG PO QAM Pregabalin (Lyrica), 300 MG PO HS Spironolactone (Aldactone), 25 MG PO BID Trazodone HCl (Trazodone HCl), 50 MG PO QPM Venlafaxine Hcl (Effexor Extended Rel), 75 MG PO QAM Venlafaxine Hcl (Effexor Extended Rel), 150 MG PO QPM Scheduled PRN Albuterol Sulfate (Proair Respiclick), 2 PUFFS INH Q4H PRN for SOB/Wheezing Tramadol (Ultram), 50 MG PO Q8 PRN for Pain Allergies Coded Allergies: Clindamycin (Verified Allergy, Severe, RASH, DELUSIONAL, CONVULSIONS, 04/13) Eggs or Egg-derived Products (Verified Allergy, Severe, ANAPHYLAXIS, ) NO FLU VAC. Note: 04/05/12, pt ate eggs for breakfast, dietary requested that pharmacy add egg food allergy. aj Furosemide (Verified Allergy, Severe, ANAPHYLAXIS, 04/13/17) Rosuvastatin (Unverified Allergy, Severe, LEG WEAKNESS, 04/13/17) Simvastatin (Unverified Allergy, Severe, LEG WEAKNESS, 04/13/17) Sulfamethoxazole w/Trimethoprim (Verified Allergy, Intermediate, RASH, ) Amoxicillin (Verified Allergy, Unknown, ., 04/13/17) Atorvastatin (Verified Allergy, Unknown, acute renal failure, 04/13/17) Clavulanic Acid (Verified Allergy, Unknown, ., 04/13/17) Egg (Verified Allergy, Unknown, _, 04/13/17) 04/05/12: ADDED PER DIETARY REQUEST. Latex1 -Allergic Contact Dermititis (Verified Allergy, Unknown, RASH, 04/13) Penicillins (Verified Allergy, Unknown, unknown, 04/13/17) Triamcinolone (Verified Allergy, Unknown, RASH, 04/13/17) Diclofenac (Verified Adverse Reaction, Severe, SKIN SLOTHED FROM HEEL, ) Isopropyl Alcohol (Verified Adverse Reaction, Severe, SKIN SLOTHED FROM HEEL, 04/13/17) Propylene Glycol (Verified Adverse Reaction, Severe, SKIN SLOTHED FROM HEEL, 04/13/17) Acetaminophen (Verified Adverse Reaction, Mild, VOMITING, 04/13/17) Physical Exam Vital Signs Date Time Temp Pulse Resp B/P (MAP) Pulse Ox O2 Delivery O2 Flow Rate FiO2 07/19/17 14:31 35.3 80 18 106/69 99 Room Air 07/19/17 13:32 34.4 73 18 109/97 97 07/19/17 13:08 33.9 74 19 107/76 96 Room Air 07/19/17 12:19 33.3 78 18 152/102 96 Room Air 07/19/17 11:52 81 07/19/17 11:45 32.7 78 18 96 Room Air 07/19/17 11:45 96 Room Air Physical Exam GENERAL: Patient is in no acute distress. HEENT: There are several bites to the right side of the tongue. No apparent bleeding. No laceration requiring repair. No acute trauma, normocephalic atraumatic, mucous membranes moist, no nasal congestion, no scleral icterus. NECK: No stridor, no adenopathy, no meningismus, trachea is midline. LUNGS: Clear to auscultation bilaterally, no wheeze, no rhonchi, breath sounds equal. HEART: Without murmurs gallops or rubs, regular rate and rhythm. ABDOMEN: Soft, nontender, bowel sounds positive, no hernias, no peritonitis. EXTREMITIES: She has a black left 5th toe. No gross deformity. There is some erythema proximally to the 5th toe. There is no gross deformity to the upper or lower extremities. No pain with joint movement. NEUROLOGIC: Oriented x 3, no acute motor or sensory deficits, no focal weakness. SKIN: Extremely cold to the touch. No rash, no jaundice, no diaphoresis. Medical Decision & Procedures ER Provider Diagnostic Interpretation: Radiology results as stated below per my review and radiologist interpretation: HEAD CT NONCONTRAST CT DOSE: 1203.35 mGy.cm HISTORY: EVALUATE ALTERED MENTAL STATUS/WEAKNESS TECHNIQUE: Multiaxial CT images of the head were performed without the use of intravenous contrast. Automated exposure control was utilized for this study. A dose lowering technique was utilized adhering to the principles of ALARA. Comparison: Head CT 05/28/2017. Findings: Mild mucosal thickening within the paranasal sinuses and trace fluid levels within the sphenoid sinus. Opacification of a few of the right mastoid air cells. Subcutaneous edema throughout the scalp. The calvarium and skull base are intact. The ventricles and sulci are within normal limits. There is no mass, hematoma, midline shift, or acute infarct. Impression: 1. No acute intracranial abnormality. 2. Mild sinus disease as described above. 3. Diffuse subcutaneous edema within the scalp. Electronically signed by: Melquiades Jay M.D. 07/19/2017 1:14 PM Dictated Date/Time: 07/19/2017 1:03 PM L FOOT MIN 3 VIEWS ROUTINE CLINICAL HISTORY: left foot black 5th toe ischemia COMPARISON: None. DISCUSSION: Severe degenerative change first toe interphalangeal joint. Deformity fifth metatarsal secondary to old trauma. No acute bony abnormality. No lytic or blastic process. There is no evidence for soft tissue swelling. IMPRESSION: Degenerative change as described. No acute bony abnormality. The above report was generated using voice recognition software. It may contain grammatical, syntax or spelling errors. Electronically signed by: John Shields M.D. 07/19/2017 12:20 PM Dictated Date/Time: 07/19/2017 12:17 PM CHEST ONE VIEW PORTABLE CLINICAL HISTORY: EVALUATE ALTERED MENTAL STATUS/WEAKNESS dyspnea COMPARISON STUDY: 06/13/2017 FINDINGS: Moderate stable cardiomegaly. Prior median sternotomy. Slight increase in prominence of the pulmonary vasculature. IMPRESSION: Early/mild congestive heart failure. The above report was generated using voice recognition software. It may contain grammatical, syntax or spelling errors. Electronically signed by: John Shields M.D. 07/19/2017 12:17 PM Dictated Date/Time: 07/19/2017 12:[address] OF THE CERVICAL SPINE WITHOUT CONTRAST CLINICAL HISTORY: Fall. COMPARISON STUDY: Cervical spine CT May 28, 2017. TECHNIQUE: Helical axial images of the cervical spine were obtained without IV contrast. Sagittal and coronal reconstructions were viewed. A dose lowering technique was utilized adhering to the principles of ALARA. FINDINGS: Alignment of the cervical spine is anatomic. Vertebral body heights are maintained. There is no acute fracture. Degenerative changes at the C1-C2 articulation are noted. Note is made of fluid within the bilateral mastoid air cells with a small amount of fluid within the right middle ear. Interlobular septal thickening within visualized portions of the lungs suggests pulmonary edema. There is anasarca. IMPRESSION: 1. No acute cervical spine fracture or subluxation. 2. Evidence for pulmonary edema within visualized portions of the lungs and anasarca. 3. Small amount of fluid within the bilateral mastoid air cells and small amount of fluid within the right middle ear. Electronically signed by: Rodriguez Bauer M.D. 07/19/2017 1:24 PM Dictated Date/Time: 07/19/2017 1:12 PM Laboratory Results Test 07/19/17 12:00 07/19/17 12:37 Urine Color DK YELLOW Urine Appearance CLEAR (CLEAR) Urine pH 5.0 (4.5-7.5) Urine Specific Markle 1.025 (1.000-1.030) Urine Protein 1+ (NEG) Urine Glucose (UA) NEG (NEG) Urine Ketones TRACE (NEG) Urine Occult Blood NEG (NEG) Urine Nitrite NEG (NEG) Urine Bilirubin NEG (NEG) Urine Urobilinogen NEG (NEG) Urine Leukocyte Esterase NEG (NEG) Urine WBC (Auto) 1-5 /hpf (0-5) Urine RBC (Auto) 0-4 /hpf (0-4) Urine Hyaline Casts (Auto) 1-5 /lpf (0-5) Urine Epithelial Cells (Auto) 5-10 /lpf (0-5) Urine Bacteria (Auto) NEG (NEG) Polychromasia 1+ Anisocytosis PRESENT Prothrombin Time 12.8 SECONDS (9.0-12.0) Prothromb Time International Ratio 1.2 (0.9-1.1) Activated Partial Thromboplast Time 34.0 SECONDS (21.0-31.0) Partial Thromboplastin Ratio 1.3 Lactic Acid Level 1.2 mmol/L (0.4-2.0) Total Creatine Kinase 338 U/L (26-192) Troponin I < 0.015 ng/ml (0-0.045) Thyroid Stimulating Hormone (TSH) 1.310 uIu/ml (0.300-4.500) Free Thyroxine 1.65 ng/dl (0.80-1.60) Date/Time Source Procedure Growth Status 07/19/17 00:00 Nasal MRSA DNA Surveillance Screen - Final Specimen Negative for MRSA by DNA Probe Complete Laboratory results reviewed by me. Medications Administered Medications (Trade) Dose Ordered Sig/Frieda Route Start Time Stop Time Status Last Admin Dose Admin Sodium Chloride 500 ml @ 999 mls/hr Q31M STAT IV 07/19/17 11:53 07/19/17 12:23 DC 07/19/17 11:53 999 MLS/HR Cefepime HCl 2000 mg/Dextrose 112.5 ml @ 200 mls/hr ONE STAT IV 07/19/17 11:53 07/19/17 12:26 DC 07/19/17 12:27 200 MLS/HR Dextrose (Dextrose 50% 50ML Syringe) 25 ml NOW ONCE IV 07/19/17 13:45 07/19/17 13:47 DC 07/19/17 13:45 25 ML ECG Per My Interpretation Indication: other (hypoglycemia) Rate (beats per minute): 80 Rhythm: normal sinus Findings: no ectopy, other (Old septal infarct, Old inferior infarct, no ST elevatoins, no PVCs) ED Course 1142: The patient was evaluated in room C7. A complete history and physical exam was performed. 1153: Cefepime HCl 2000mg/ Dextrose 112.5ml @ 200mls/hr IV, Sodium Chloride 500 ml @ 999 mls/hr IV 1342: I reevaluated the patient, and I updated her and her family. She will be evaluated for further management by the hospitalist. 1345: Dextrose 50% 25ml IV 1350: Discussed the patient's case with Dr. Hossein Munoz - [facility] Hospitalist. The patient will be evaluated for further management. 1425: The patient's blood sugar dropped again. I ordered Dextrose/ Sodium Chloride 1000ml @ 75mls/hr IV Medical Decision Differential diagnoses include: hypoglycemia, dehydration, electrolyte imbalance , intracranial bleeding, cervical spine injury, sepsis, left foot or toe fracture, neurovascular compromise, UTI, and pneumonia. There is a mild leukocytosis, this could be consistent with infection or the stress of her situation. No worrisome anemia. No significant electrolyte abnormality, kidney failure or hepatitis. Lactic acid level was not elevated making sepsis less likely. The patient appeared to be in a euthyroid state. Urinalysis did not show infection. There was no coagulopathy. Blood cultures are pending. Chest film did not show pneumonia or concerning CHF. EKG showed a normal sinus rhythm, no acute ischemia. Cardiac enzyme testing 1 was not consistent with acute cardiac injury. Total CK was not significantly elevated making rhabdomyolysis less likely. Brain CT showed no acute bleed or mass- effect. Cervical spine CT showed no acute fracture. Left foot film did not show fracture or bony dislocation. The patient presented with a change in mental status. She has been on the floor for an unknown length of time, possibly a prolonged length of time. Her blood sugar was in the 20s when found by the EMS crew. The patient did receive IV dextrose on the way to the hospital and and her sugar is now adequate. During her ER stay though, the sugar began to drop and she required a dose of IV D50. She did eat a partial meal here but her blood sugar did begin again to drop, she was placed on a D5 drip. She received IV saline for hydration, she received IV cefepime as antibiotic coverage. The patient is doing well considering her presentation. As she was hypothermic , the Leonardo hugger was applied, her temperature has risen. She has remained awake and interactive. She is talkative. A hospital stay is required. Further workup is needed, the patient may not be safe in her current living situation. The blackness to the left fifth toe will need to be followed as I suspect there is a serious circulation issue present. I did speak with the patient and case management. The on-call hospitalist was consulted. Medication Reconcilliation Current Medication List: was personally reviewed by me Blood Pressure Screening Patient's blood pressure: Elevated blood pressure Monitored by the hospitalist Consults Time Called: 1338 Consulting Physician: Dr. Hossein PRICE Hospitalist Returned Call: [phone] Discussed the patient's case with Dr. Hossein PRICE Hospitalist. The patient will be evaluated for further management. Impression Primary Impression: Hypoglycemia Additional Impressions: Hypothermia Fall Critical Care I have personally spent greater than 35 minutes of critical care time in the direct management of this patient. This includes bedside care, interpretation of diagnostic studies, and testing, discussion with consultants, patient, and family members, and other required patient management activities. This 35 minutes is in excess of all separately billable procedures. Scribe Attestation The scribe's documentation has been prepared under my direction and personally reviewed by me in its entirety. I confirm that the note above accurately reflects all work, treatment, procedures, and medical decision making performed by me. Departure Information Dispostion Being Evaluated By Hospitalist Referrals RV. Gerard MD (PCP) Problem Qualifiers
--- NOTE | 2017-07-19 12:19 | DIAGNOSTIC IMAGING REPORT ---
CHEST ONE VIEW PORTABLE CLINICAL HISTORY: EVALUATE ALTERED MENTAL STATUS/WEAKNESS dyspnea COMPARISON STUDY: 06/13/2017 FINDINGS: Moderate stable cardiomegaly. Prior median sternotomy. Slight increase in prominence of the pulmonary vasculature. IMPRESSION: Early/mild congestive heart failure. The above report was generated using voice recognition software. It may contain grammatical, syntax or spelling errors. Electronically signed by: John Shields M.D. 07/19/2017 12:17 PM Dictated Date/Time: 07/19/2017 12:17 PM
--- NOTE | 2017-07-19 12:22 | DIAGNOSTIC IMAGING REPORT ---
L FOOT MIN 3 VIEWS ROUTINE CLINICAL HISTORY: left foot black 5th toe ischemia COMPARISON: None. DISCUSSION: Severe degenerative change first toe interphalangeal joint. Deformity fifth metatarsal secondary to old trauma. No acute bony abnormality. No lytic or blastic process. There is no evidence for soft tissue swelling. IMPRESSION: Degenerative change as described. No acute bony abnormality. The above report was generated using voice recognition software. It may contain grammatical, syntax or spelling errors. Electronically signed by: John Shields M.D. 07/19/2017 12:20 PM Dictated Date/Time: 07/19/2017 12:17 PM
[2017-07-19 13:06] LABS: BASO % 0.1 %; BASO ABS # 0.01 K/uL (0-0.2); HEMATOCRIT 40.3 % (37-47); LYMPH % 7.2 %; LYMPH ABS # 0.95 K/uL (1.2-3.4); MEAN CORPUSCULAR HEMOGLOBIN 24.5 pg (25-34); MEAN CORPUSCULAR HGB CONC 32.3 g/dl (32-36); MEAN PLATELET VOLUME 10.8 fL (7.4-10.4); MONO % 5.9 %; MONO ABS # 0.77 K/uL (0.11-0.59); NEUT ABS # 11.28 K/uL (1.4-6.5); NUCLEATED RED BLOOD CELL ABS 0.02 K/uL (0-0); PLATELET COUNT 368 K/uL (130-400); RED CELL DISTRIBUTION WIDTH CV 20.2 % (11.5-14.5); RED CELL DISTRIBUTION WIDTH SD 55.9 fL (36.4-46.3); WHITE BLOOD COUNT 13.11 K/uL (4.8-10.8)
[2017-07-19 13:15] LABS: INR 1.2 (0.9-1.1)
--- NOTE | 2017-07-19 13:15 | DIAGNOSTIC IMAGING REPORT ---
HEAD CT NONCONTRAST CT DOSE: 1203.35 mGy.cm HISTORY: EVALUATE ALTERED MENTAL STATUS/WEAKNESS TECHNIQUE: Multiaxial CT images of the head were performed without the use of intravenous contrast. Automated exposure control was utilized for this study. A dose lowering technique was utilized adhering to the principles of ALARA. Comparison: Head CT 05/28/2017. Findings: Mild mucosal thickening within the paranasal sinuses and trace fluid levels within the sphenoid sinus. Opacification of a few of the right mastoid air cells. Subcutaneous edema throughout the scalp. The calvarium and skull base are intact. The ventricles and sulci are within normal limits. There is no mass, hematoma, midline shift, or acute infarct. Impression: 1. No acute intracranial abnormality. 2. Mild sinus disease as described above. 3. Diffuse subcutaneous edema within the scalp. Electronically signed by: Melquiades Jay M.D. 07/19/2017 1:14 PM Dictated Date/Time: 07/19/2017 1:03 PM
[2017-07-19 13:24] LABS: ALBUMIN 2.7 gm/dl (3.4-5.0); ALT/SGPT 30 U/L (12-78); AST/SGOT 31 U/L (15-37); BLOOD UREA NITROGEN 39 mg/dl (7-18); CALCIUM 8.8 mg/dl (8.5-10.1); CARBON DIOXIDE 23 mmol/L (21-32); CREATININE 1.33 mg/dl (0.60-1.20); GLUCOSE 64 mg/dl (70-99); POTASSIUM 4.5 mmol/L (3.5-5.1); SODIUM 132 mmol/L (136-145)
--- NOTE | 2017-07-19 13:25 | DIAGNOSTIC IMAGING REPORT ---
CT OF THE CERVICAL SPINE WITHOUT CONTRAST CLINICAL HISTORY: Fall. COMPARISON STUDY: Cervical spine CT May 28, 2017. TECHNIQUE: Helical axial images of the cervical spine were obtained without IV contrast. Sagittal and coronal reconstructions were viewed. A dose lowering technique was utilized adhering to the principles of ALARA. FINDINGS: Alignment of the cervical spine is anatomic. Vertebral body heights are maintained. There is no acute fracture. Degenerative changes at the C1-C2 articulation are noted. Note is made of fluid within the bilateral mastoid air cells with a small amount of fluid within the right middle ear. Interlobular septal thickening within visualized portions of the lungs suggests pulmonary edema. There is anasarca. IMPRESSION: 1. No acute cervical spine fracture or subluxation. 2. Evidence for pulmonary edema within visualized portions of the lungs and anasarca. 3. Small amount of fluid within the bilateral mastoid air cells and small amount of fluid within the right middle ear. Electronically signed by: Rodriguez Bauer M.D. 07/19/2017 1:24 PM Dictated Date/Time: 07/19/2017 1:12 PM
[2017-07-19 13:33] LABS: ALKALINE PHOSPHATASE 111 U/L (45-117)
[2017-07-19] MEDS ORDERED: DEXTROSE 50% 50 ML SYR IV ONE (13:45)
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
[2017-07-19] MEDS ORDERED: D5W AND 1/2NSS 1,000 ML IV STA (14:25)
[2017-07-19] MEDS ORDERED: ONDANSETRON INJ 2 MG/ML 2 ML VIAL IV PRN (15:00)
[2017-07-19] MEDS ORDERED: GLUCOSE 40% GEL 15 GM TUBE PO PRN (15:00)
[2017-07-19] MEDS ORDERED: GLUCAGON FOR INJ 1 MG VIAL SQ PRN (15:00)
[2017-07-19] MEDS ORDERED: GLUCOSE 10 TABS/TUBE PO PRN (15:00)
[2017-07-19] MEDS ORDERED: TRAMADOL HCL 50 MG TAB PO PRN (15:00)
[2017-07-19] MEDS ORDERED: ALBUTEROL HFA 8 GM INHALER INH PRN (15:00)
[2017-07-19] MEDS ORDERED: DEXTROSE 50% 50 ML SYR IV PRN (15:00)
[2017-07-19] MEDS ORDERED: PHARMACY GLYCEMIC MGMT CONSULT PRN (15:22)
[2017-07-19] MEDS ORDERED: CEFEPIME IV 2,000 MG in DEXTROSE 5% 100ML 100 ML IV SCH (15:30)
[2017-07-19] MEDS: INSULIN ASPART 100 UNITS/ML 3 ML PEN SC SCH ×3 (16:00→21:40)
[2017-07-19 16:26] VITALS: BP 116/63; PULSE 84; TEMP 36.4; O2SAT 96
[2017-07-19] MEDS: DEXTROSE 5% 1000ML 1,000 ML IV SCH (16:31)
[2017-07-19 16:41] VITALS: BP 116/63; PULSE 84; TEMP 36.4; Ht 167.6 cm; Wt 105.6 kg
[2017-07-19] MEDS ORDERED: VANCOMYCIN CONSULT ACTIVE PRN (17:45)
[2017-07-19] MEDS ORDERED: VANCOMYCIN IV 2,500 MG in SODIUM CHLORIDE 0.9% 500ML 500 ML IV ONE (18:00)
[2017-07-19] MEDS: LACTOBACILLUS ACIDOPHILUS (FLORANEX) TAB PO SCH (19:20)
[2017-07-19] MEDS: SPIRONOLACTONE 25 MG TAB PO SCH (19:20)
--- NOTE | 2017-07-19 19:52 | Pharmacy Progress Note ---
Pharmacy Abx Initial Consult Date of Service Jul 19, 2017. Pharmacy Dosing Scope Date of Consult: 07/19/17 Consultation requested by: Dr. Catalan Pharmacy is consulted to initiate Vancomycin IV/PO dosing therapy, order appropriate labs and adjust drug dose/frequency. Objective Height (Feet): 5 Height (Inches): 6.00 Weight (Kilograms): 105.600 Vital Signs (Past 12Hrs) Vital Signs Past 12 Hours Date Time Temp Pulse Resp B/P (MAP) Pulse Ox O2 Delivery O2 Flow Rate FiO2 07/19/17 16:41 36.4 84 18 116/63 Room Air 07/19/17 16:26 36.4 84 18 116/63 (80) 96 Room Air 07/19/17 15:21 36.1 81 23 117/72 97 Room Air 07/19/17 14:31 35.3 80 18 106/69 99 Room Air 07/19/17 13:32 34.4 73 18 109/97 97 07/19/17 13:08 33.9 74 19 107/76 96 Room Air 07/19/17 12:19 33.3 78 18 152/102 96 Room Air 07/19/17 11:52 81 07/19/17 11:45 32.7 78 18 96 Room Air 07/19/17 11:45 96 Room Air Lab Results (24Hrs) Laboratory Tests (24 Hours) Test 07/19/17 12:37 Lactic Acid Level 1.2 mmol/L (0.4-2.0) White Blood Count 13.11 K/uL (4.8-10.8) H Red Blood Count 5.30 M/uL (4.2-5.4) Hemoglobin 13.0 g/dL (12.0-16.0) Hematocrit 40.3 % (37-47) Mean Corpuscular Volume 76.0 fL (80-100) L Mean Corpuscular Hemoglobin 24.5 pg (25-34) L Mean Corpuscular Hemoglobin Concent 32.3 g/dl (32-36) Platelet Count 368 K/uL (130-400) Mean Platelet Volume 10.8 fL (7.4-10.4) H Neutrophils (%) (Auto) 86.0 % Lymphocytes (%) (Auto) 7.2 % Monocytes (%) (Auto) 5.9 % Eosinophils (%) (Auto) 0.0 % Basophils (%) (Auto) 0.1 % Neutrophils # (Auto) 11.28 K/uL (1.4-6.5) H Lymphocytes # (Auto) 0.95 K/uL (1.2-3.4) L Monocytes # (Auto) 0.77 K/uL (0.11-0.59) H Eosinophils # (Auto) 0.00 K/uL (0-0.5) Basophils # (Auto) 0.01 K/uL (0-0.2) Total Creatine Kinase 338 U/L (26-192) H Micro Results Date/Time Source Procedure Growth Status 07/19/17 12:37 Blood Blood Culture Pending Received 07/19/17 11:55 Blood Blood Culture Pending Received 07/19/17 19:42 Nasal MRSA DNA Surveillance Screen Pending Brianna Batch Assessment & Plan Assessment 66 year old female started on empiric vancomycin + cefepime IV for treatment of LLE cellulitis. * BLANCA in the setting of CKD stage II (baseline Scr ~1.0 mg/dL) Plan Vancomycin IV * Loading dose: 2500 mg (23.6 mg/kg) * Maintenance dose: 1250 mg IV (12 mg/kg) every 16 hours * Goal trough level for cellulitis : 15 to 20 mcg/mL * Trough level will be ordered prior to fourth dose * A less than traditional dose and/or extended dosing interval has/have been selected due to likelihood of drug accumulation in obese patient/patient with h/ o CKD. Frequency may require slight adjustment if SCr improves overnight. Cefepime 2 gram IV every 8 hours - not pharmacy consult * consider decreasing to 2 gram IV q12 hours for skin source Pharmacy will continue to follow and will adjust dose/frequency as necessary. Thank you.
[2017-07-19] MEDS ORDERED: PNEUMOCOCCAL POLYSACCHARIDES 25 MCG/0.5 ML VIAL/SYR IM. ONE (21:15)
[2017-07-19] MEDS ORDERED: PNEUMOCOCCAL ADMINISTRATION CHARGE ONE (21:15)
[2017-07-19] MEDS: CEFEPIME IV 2,000 MG in SYRINGE 7.5 ML IV SCH (21:20)
[2017-07-19] MEDS: PREGABALIN 150 MG CAP PO SCH (21:20)
[2017-07-19] MEDS: VENLAFAXINE HCL XR 150 MG CAPXR PO SCH (21:21)
[2017-07-19] MEDS: CARVEDILOL 6.25 MG TAB PO SCH (21:21)
[2017-07-19] MEDS: TRAZODONE HCL 50 MG TAB PO SCH (21:21)
[2017-07-19] MEDS: OXYBUTYNIN CHLORIDE 5 MG TAB PO SCH (21:22)
[2017-07-19] MEDS: PRAMIPEXOLE DIHYDROCHLORIDE 0.25MG TAB PO SCH (21:22)
[2017-07-19] MEDS: MAGNESIUM OXIDE 400 MG TAB PO SCH (21:23)
[2017-07-19] MEDS: MIRTAZAPINE TAB 15 MG TAB PO SCH (21:24)
[2017-07-19] MEDS: HEPARIN SOD 5000 UNIT/0.5 ML CARP SQ SCH (21:40)
--- NOTE | 2017-07-19 22:05 | Pharmacy Progress Note ---
Glycemic Control Intl Consult Date of Service Jul 19, 2017. Scope Glycemic Pharmacist consulted by Dr Andrea on 07/19/17 for glycemic control and to write orders per [facility] inpatient glycemic control protocol Objective Weight (Kilograms): 105.600 Accuchecks BSG (last 24hrs): Test 07/19/17 12:12 07/19/17 12:37 07/19/17 13:35 07/19/17 14:24 Bedside Glucose 94 mg/dl (70-90) 42 mg/dl (70-90) 78 mg/dl (70-90) Random Glucose 64 mg/dl (70-99) Test 07/19/17 17:08 Bedside Glucose 83 mg/dl (70-90) Laboratory Data (last 24hrs) Test 07/19/17 12:37 Anion Gap 8.0 mmol/L BUN/Creatinine Ratio 29.0 Blood Urea Nitrogen 39 mg/dl Creatinine 1.33 mg/dl Potassium Level 4.5 mmol/L Sodium Level 132 mmol/L White Blood Count 13.11 K/uL Red Blood Count 5.30 M/uL Hemoglobin 13.0 g/dL Hematocrit 40.3 % Mean Corpuscular Volume 76.0 fL Mean Corpuscular Hemoglobin 24.5 pg Mean Corpuscular Hemoglobin Concent 32.3 g/dl Platelet Count 368 K/uL Mean Platelet Volume 10.8 fL Neutrophils (%) (Auto) 86.0 % Lymphocytes (%) (Auto) 7.2 % Monocytes (%) (Auto) 5.9 % Eosinophils (%) (Auto) 0.0 % Basophils (%) (Auto) 0.1 % Neutrophils # (Auto) 11.28 K/uL Lymphocytes # (Auto) 0.95 K/uL Monocytes # (Auto) 0.77 K/uL Eosinophils # (Auto) 0.00 K/uL Basophils # (Auto) 0.01 K/uL Recent Pertinent Medications Outpatient Anti-diabetic Regimen: * Toujeo 68 units SQ HS + humalog 20 units with meals * A1c = 9.6 % 05/19/17 Assessment & Plan ASSESSMENT: * 66 yr old T2DM female admitted with hypoglycemia. Patient was found down at home with BSG of 27 mg/dL. * Per H&P, Toujeo dose was recently decreased from 80 units to 68 units qHS due to episodes of hypoglycemia. * Pt is currently ordered fluids with D5% @ 80 ml/min. * Will hold basal insulin until BSG recovers to 180 mg/dL. Will start with reduced bolus insulin parameters to avoid hypoglycemia and titrate conservatively as BSG allows. PLAN FOR INPATIENT GLYCEMIC CONTROL: * Basal insulin - reduce * Lantus 15 units SQ tonight if BSG is 180 mg/dL or more * Further Lantus orders to be determined on 07/20 * Bolus Insulin * NOVOLOG per scale ACHS or Q6hrs while NPO * Goal Range: Low 120 mg/dL - High 150 mg/dL * Correction Factor: 30 mg/dL/unit * Nutritional / Prandial insulin per carb ratio of 1 unit per 10 grams CHO consumed * Please note that the plan above was derived based on current level of insulin resistance and hospital stress. These recommendations are appropriate for inpatient admission only. Plan of care upon discharge will need to be reassessed to avoid potential outpatient hypo/hyperglycemia. Thank you.
[2017-07-19 23:45] VITALS: BP 107/57; PULSE 81; TEMP 36.5; O2SAT 96
[2017-07-20] MEDS ORDERED: INSULIN ASPART 100 UNITS/ML 3 ML PEN SC SCH
[2017-07-20] MEDS ORDERED: INSULIN GLARGINE SOLOSTAR 100 UNITS/ML 3 ML PEN SC SCH
[2017-07-20] MEDS: TRAMADOL HCL 50 MG TAB PO PRN ×4 (02:19→16:21)
[2017-07-20] MEDS: DEXTROSE 5% 1000ML 1,000 ML IV SCH (04:38)
[2017-07-20] MEDS: HEPARIN SOD 5000 UNIT/0.5 ML CARP SQ SCH ×3 (05:51→21:05)
[2017-07-20] MEDS: LEVOTHYROXINE 150 MCG TAB PO SCH (05:52)
[2017-07-20] MEDS: CEFEPIME IV 2,000 MG in SYRINGE 7.5 ML IV SCH ×2 (06:21→13:44)
[2017-07-20 07:13] VITALS: BP 90/53; PULSE 73; TEMP 36.9; O2SAT 99
[2017-07-20 07:30] VITALS: O2SAT 99
--- NOTE | 2017-07-20 08:33 | DIAGNOSTIC IMAGING REPORT ---
ANKLE BRACHIAL INDEX COMPLETE CLINICAL HISTORY: Assess for PAD with necrotic L and R toe wounds TECHNIQUE: Ankle-brachial brachial index COMPARISON STUDY: None FINDINGS: Right posterior tibial ankle brachial index is 1.24. Right dorsalis pedis brachial index is 1.31. Left posterior tibial index is 1.22. Left dorsalis pedis index is 1.03 IMPRESSION: Normal study The above report was generated using voice recognition software. It may contain grammatical, syntax or spelling errors. Electronically signed by: John Shields M.D. 07/20/2017 8:32 AM Dictated Date/Time: 07/20/2017 8:24 AM
[2017-07-20 08:38] LABS: BASO % 0.1 %; BASO ABS # 0.01 K/uL (0-0.2); EOS % 0.1 %; EOS ABS # 0.01 K/uL (0-0.5); HEMATOCRIT 32.8 % (37-47); HEMOGLOBIN 10.7 g/dL (12.0-16.0); IG# 0.04 K/uL (0.00-0.02); LYMPH ABS # 2.46 K/uL (1.2-3.4); MEAN CELL VOLUME 74.9 fL (80-100); MEAN CORPUSCULAR HEMOGLOBIN 24.4 pg (25-34); MEAN CORPUSCULAR HGB CONC 32.6 g/dl (32-36); MEAN PLATELET VOLUME 10.4 fL (7.4-10.4); MONO % 8.4 %; MONO ABS # 0.98 K/uL (0.11-0.59); NEUT % 70.1 %; NEUT ABS # 8.19 K/uL (1.4-6.5); PLATELET COUNT 296 K/uL (130-400); RED CELL DISTRIBUTION WIDTH CV 20.8 % (11.5-14.5); RED CELL DISTRIBUTION WIDTH SD 55.8 fL (36.4-46.3); WHITE BLOOD COUNT 11.69 K/uL (4.8-10.8)
[2017-07-20 08:43] LABS: HEMOGLOBIN A1C 8.6 % (4.5-5.6)
[2017-07-20 08:58] LABS: ALBUMIN 2.3 gm/dl (3.4-5.0); CALCIUM 8.2 mg/dl (8.5-10.1); CREATININE 1.65 mg/dl (0.60-1.20)
[2017-07-20 09:02] LABS: TOTAL PROTEIN 5.6 gm/dl (6.4-8.2)
[2017-07-20 09:14] VITALS: BP 100/62; PULSE 73
[2017-07-20] MEDS: INSULIN GLARGINE SOLOSTAR 100 UNITS/ML 3 ML PEN SC SCH ×2 (09:14→20:00)
[2017-07-20] MEDS: INSULIN ASPART 100 UNITS/ML 3 ML PEN SC SCH ×4 (09:14→20:56)
[2017-07-20] MEDS: CARVEDILOL 6.25 MG TAB PO SCH ×2 (09:15→20:57)
[2017-07-20] MEDS: ASPIRIN 81 MG ECTAB PO SCH (09:15)
[2017-07-20] MEDS: CLOPIDOGREL BISULFATE 75 MG TAB PO SCH (09:16)
[2017-07-20] MEDS: POTASSIUM CHLORIDE 20 MEQ TABCR PO SCH (09:16)
[2017-07-20] MEDS: VENLAFAXINE HCL XR 75 MG CAPXR PO SCH (09:16)
[2017-07-20] MEDS: MAGNESIUM OXIDE 400 MG TAB PO SCH ×2 (09:17→20:59)
[2017-07-20] MEDS: OXYBUTYNIN CHLORIDE 5 MG TAB PO SCH ×2 (09:17→20:57)
[2017-07-20] MEDS: LACTOBACILLUS ACIDOPHILUS (FLORANEX) TAB PO SCH ×3 (09:17→17:11)
[2017-07-20] MEDS: SPIRONOLACTONE 25 MG TAB PO SCH ×2 (09:18→17:11)
[2017-07-20] MEDS: PREGABALIN 150 MG CAP PO SCH ×2 (09:18→20:57)
[2017-07-20] MEDS ORDERED: VANCOMYCIN IV 1,250 MG in SODIUM CHLORIDE 0.9% 250ML 250 ML IV SCH (10:00)
--- NOTE | 2017-07-20 14:07 | Pharmacy Progress Note ---
Pharmacy Glycemic Short Note 2 Date of Service Jul 20, 2017. OUTPATIENT ANTIDIABETIC REGIMEN: * Toujeo 68 units SQ HS (recently decreased from 80 units) + humalog 20 units with meals * A1c = 8.6% on 07/20/17 Test 07/19/17 14:24 07/19/17 15:19 07/19/17 17:08 07/19/17 21:15 Bedside Glucose 78 mg/dl (70-90) 85 mg/dl (70-90) 83 mg/dl (70-90) 151 mg/dl (70-90) Test 07/19/17 23:50 07/20/17 07:14 07/20/17 08:20 07/20/17 11:43 Bedside Glucose 179 mg/dl (70-90) 210 mg/dl (70-90) 121 mg/dl (70-90) Random Glucose 194 mg/dl (70-99) ASSESSMENT: 07/20/17 * Ms. Marsh received only 1 unit of insulin as an inpatient yesterday, due to sliding scale parameters for Lantus and BSGs below goal * As of today, she is no longer hypoglycemic but D5 continues at 80 cc/hr (to be stopped ~1600 today) * In addition, SCr continues to rise so will need to be cautious with insulin dosing * As of this AM, fasting was up to 210 mg/dL - basal will need resumed and will initiate a scale. Based on previous admissions when not on steroids, a basal of ~50 units/day seemed to work. * Will also plan to tighten Novolog parameters now that BSG has increased 07/19/17 * 66 yr old T2DM female admitted with hypoglycemia. Patient was found down at home with BSG of 27 mg/dL. * Per H&P, Toujeo dose was recently decreased from 80 units to 68 units qHS due to episodes of hypoglycemia. * Pt is currently ordered fluids with D5% @ 80 ml/min. * Will hold basal insulin until BSG recovers to 180 mg/dL. Will start with reduced bolus insulin parameters to avoid hypoglycemia and titrate conservatively as BSG allows. PLAN FOR INPATIENT GLYCEMIC CONTROL: * Basal insulin * Lantus BID as per the following scale: * Hold for BSG < 120 * 15 units for BSG 120-200 * 25 units for BSG > 200 * Bolus insulin * NovoLog per scale ACHS or Q6hrs while NPO * Goal Range: Low 120 mg/dL - High 150 mg/dL * LOOSEN Correction Factor: 25 mg/dL/unit * LOOSEN Nutritional / Prandial insulin per carb ratio of 1 unit per 8 grams CHO consumed PLAN FOR DISCHARGE: * Hypoglycemic prior to admission and basal dose also just recently reduced * Recommend further reduction in basal to: * Toujeo 58 units qHS * Continue Humalog 20 units w/ meals
[2017-07-20 16:00] VITALS: BP 107/67; PULSE 60; TEMP 36.7; O2SAT 95
--- NOTE | 2017-07-20 16:16 | Orthopedic Consultation ---
Orthopedic Consultation Date of Consultation: Jul 20, 2017. Attending Physician: Rita Adames MD Reason for Consultation: Left fifth toe right second toe History of Present Illness Patient said she had a corn on her left fifth toe that was draining and she put a bandage on it and then basically did this on Tuesday and was found on Tuesday unconscious. She has increased pain in the left fifth toe. Right second toe is not really painful Past Medical/Surgical History Medical Problems: (1) ACS (acute coronary syndrome) Status: Acute (2) Acute gastroenteritis Status: Acute (3) Acute head injury Status: Acute (4) Acute hypernatremia Status: Acute (5) Acute kidney injury Status: Acute (6) Avulsion injury of left knee region Status: Acute (7) Cellulitis Status: Acute (8) Cellulitis of right leg Status: Acute (9) CHF (congestive heart failure) Status: Acute (10) CHF exacerbation Status: Acute (11) Contusion of right hip Status: Acute (12) Contusion of right shoulder Status: Acute (13) COPD (chronic obstructive pulmonary disease) Status: Acute (14) COPD exacerbation Status: Acute (15) DKA (diabetic ketoacidoses) Status: Acute (16) Elevated troponin Status: Acute (17) Fall Status: Acute (18) Hyperkalemia Status: Acute (19) Hyperkalemia Status: Acute (20) Hypoglycemia Status: Acute (21) Hypothermia Status: Acute (22) Hypoxia Status: Acute (23) Influenza Status: Acute (24) Osteomyelitis Status: Acute (25) Pneumonia Status: Acute (26) Troponin level elevated Status: Acute (27) Vomiting Status: Acute (28) Weakness Status: Acute Family History No pertinent family history Social History Smoking Status: Former Smoker Smokeless Tobacco Use: No Alcohol Use: none Drug Use: none Marital Status: single Housing Status: lives alone Occupation Status: retired Allergies Coded Allergies: Clindamycin (Verified Allergy, Severe, RASH, DELUSIONAL, CONVULSIONS, 04/13) Eggs or Egg-derived Products (Verified Allergy, Severe, ANAPHYLAXIS, ) NO FLU VAC. Note: 04/05/12, pt ate eggs for breakfast, dietary requested that pharmacy add egg food allergy. aj Furosemide (Verified Allergy, Severe, ANAPHYLAXIS, 04/13/17) Rosuvastatin (Unverified Allergy, Severe, LEG WEAKNESS, 04/13/17) Simvastatin (Unverified Allergy, Severe, LEG WEAKNESS, 04/13/17) Sulfamethoxazole w/Trimethoprim (Verified Allergy, Intermediate, RASH, ) Amoxicillin (Verified Allergy, Unknown, ., 04/13/17) Atorvastatin (Verified Allergy, Unknown, acute renal failure, 04/13/17) Clavulanic Acid (Verified Allergy, Unknown, ., 04/13/17) Egg (Verified Allergy, Unknown, _, 04/13/17) 04/05/12: ADDED PER DIETARY REQUEST. Latex1 -Allergic Contact Dermititis (Verified Allergy, Unknown, RASH, 04/13) Penicillins (Verified Allergy, Unknown, unknown, 04/13/17) Triamcinolone (Verified Allergy, Unknown, RASH, 04/13/17) Diclofenac (Verified Adverse Reaction, Severe, SKIN SLOTHED FROM HEEL, ) Isopropyl Alcohol (Verified Adverse Reaction, Severe, SKIN SLOTHED FROM HEEL, 04/13/17) Propylene Glycol (Verified Adverse Reaction, Severe, SKIN SLOTHED FROM HEEL, 04/13/17) Acetaminophen (Verified Adverse Reaction, Mild, VOMITING, 04/13/17) Home Medications Scheduled Aspirin (Aspirin Dr), 81 MG PO DAILY Carvedilol (Coreg), 6.25 MG PO BID Clopidogrel Bisulfate (Clopidogrel), 75 MG PO DAILY Ergocalciferol (Vitamin D 37132 Unit), 50,000 INTER.UNIT PO WK Insulin Glargine (Toujeo Solostar), 68 UNITS SQ QHS Insulin Lispro (Human) (Humalog Kwikpen), 20 UNITS SQ WM Levothyroxine Sodium (Levothyroxine Sodium), 150 MCG PO QAM Lisinopril (Lisinopril), 2.5 MG PO DAILY Magnesium Oxide (Mag-Ox), 400 MG PO BID Mirtazapine (Remeron), 30 MG PO HS Multiple Vitamins W/ Minerals (Multi For Her 50+), 1 CAP PO DAILY Oxybutynin Chloride (Ditropan), 5 MG PO BID Potassium Chloride (Klor-Con M20), 20 MEQ PO DAILY Pramipexole Dihydrochloride (Pramipexole Dihydrochlori), 0.75 MG PO QPM Pregabalin (Lyrica), 150 MG PO QAM Pregabalin (Lyrica), 300 MG PO HS Spironolactone (Aldactone), 25 MG PO BID Trazodone HCl (Trazodone HCl), 50 MG PO QPM Venlafaxine Hcl (Effexor Extended Rel), 75 MG PO QAM Venlafaxine Hcl (Effexor Extended Rel), 150 MG PO QPM Scheduled PRN Albuterol Sulfate (Proair Respiclick), 2 PUFFS INH Q4H PRN for SOB/Wheezing Tramadol (Ultram), 50 MG PO Q8 PRN for Pain Current Inpatient Medications Current Inpatient Medications Medications (Trade) Dose Ordered Sig/Frieda Route Start Time Stop Time Status Last Admin Dose Admin Heparin Sodium (Porcine) (Heparin Sq 5000 Unit/0.5ml) 5,000 unit Q8 SQ 07/19/17 22:00 08/18/17 21:59 07/20/17 13:53 5,000 UNIT Polyethylene (Miralax Powder Packet) 17 gm DAILY PRN PO 07/19/17 15:00 08/18/17 14:59 Ondansetron HCl (Zofran Inj) 4 mg Q6H PRN IV 07/19/17 15:00 08/18/17 14:59 Aspirin (Ecotrin Tab) 81 mg DAILY PO 07/20/17 08:00 08/19/17 08:59 07/20/17 09:15 81 MG Carvedilol (Coreg Tab) 6.25 mg BID PO 07/19/17 20:00 08/18/17 20:59 07/20/17 09:15 6.25 MG Clopidogrel Bisulfate (plAVix TAB) 75 mg DAILY PO 07/20/17 08:00 08/19/17 08:59 07/20/17 09:16 75 MG Levothyroxine Sodium (Synthroid Tab) 150 mcg DAILYBB PO 07/20/17 06:30 08/19/17 06:59 07/20/17 05:52 150 MCG Magnesium Oxide (Mag-Ox Tab) 400 mg BID PO 07/19/17 20:00 08/18/17 20:59 07/20/17 09:17 400 MG Mirtazapine (Remeron Tab) 30 mg HS PO 07/19/17 21:00 08/18/17 20:59 07/19/17 21:24 30 MG Oxybutynin Chloride (Ditropan Tab) 5 mg BID PO 07/19/17 20:00 08/18/17 20:59 07/20/17 09:17 5 MG Potassium Chloride (Klor-Con Tab) 20 meq DAILY PO 07/20/17 08:00 08/19/17 08:59 07/20/17 09:16 20 MEQ Pregabalin (Lyrica Cap) 150 mg QAM PO 07/20/17 08:00 08/19/17 08:59 07/20/17 09:18 150 MG Pregabalin (Lyrica Cap) 300 mg HS PO 07/19/17 21:00 08/18/17 20:59 07/19/17 21:20 300 MG Spironolactone (Aldactone Tab) 25 mg BID17 PO 07/19/17 17:00 08/18/17 16:59 07/20/17 09:18 25 MG Trazodone HCl (Desyrel Tab) 50 mg QPM PO 07/19/17 21:00 08/18/17 20:59 07/19/17 21:21 50 MG Venlafaxine HCl (effeXOR EXTENDED REL CAP) 75 mg QAM PO 07/20/17 08:00 08/19/17 08:59 07/20/17 09:16 75 MG Venlafaxine HCl (effeXOR EXTENDED REL CAP) 150 mg QPM PO 07/19/17 21:00 08/18/17 20:59 07/19/17 21:21 150 MG Albuterol (Ventolin Hfa Inhaler) 2 puffs Q4H PRN INH 07/19/17 15:00 08/18/17 14:59 Pramipexole Dihydrochloride (miraPEX TAB) 0.75 mg QPM PO 07/19/17 21:00 08/18/17 20:59 07/19/17 21:22 0.75 MG Insulin Aspart (novoLOG ASPART) SLIDING SCALE If C... ACHS SC 07/19/17 16:00 08/18/17 15:59 07/20/17 12:21 9 UNITS Glucose (Glucose 40% Gel) 15-30 GRAMS 15 GRAMS... UD PRN PO 07/19/17 15:00 08/18/17 14:59 Glucose (Glucose Chew Tab) 4-8 Tablets 4 Tabl... UD PRN PO 07/19/17 15:00 08/18/17 14:59 Dextrose (Dextrose 50% 50ML Syringe) 25-50ML OF 50% DW IV FOR... UD PRN IV 07/19/17 15:00 08/18/17 14:59 Glucagon (Glucagon Inj) 1 mg UD PRN SQ 07/19/17 15:00 08/18/17 14:59 Miscellaneous Information (Consult Glycemic Management Pharmacy) 1 ea UD PRN N/A 07/19/17 15:22 08/18/17 15:21 Dextrose 1,000 ml @ 80 mls/hr [id number] IV 07/19/17 16:15 07/20/17 16:14 07/20/17 04:38 80 MLS/HR Lactobacillus Acidophilus (Floranex Tab) 4 tab TIDM PO 07/19/17 17:00 08/18/17 17:59 07/20/17 12:20 4 TAB Vancomycin HCl 1250 mg/Sodium Chloride 275 ml @ 125 mls/hr Q16H IV 07/20/17 10:00 07/20/17 17:00 Future hold 07/20/17 13:44 125 MLS/HR Miscellaneous Information (Consult) 1 ea UD PRN N/A 07/19/17 17:45 08/18/17 17:44 Tramadol HCl (Ultram Tab) 50 mg Q4 PRN PO 07/20/17 02:00 08/18/17 14:59 07/20/17 12:23 50 MG Insulin Glargine (Lantus Solostar Pen) SEE PROTOCOL TEXT BID SC 07/20/17 08:00 08/19/17 07:59 07/20/17 09:14 25 UNITS Vancomycin HCl 1250 mg/Sodium Chloride 275 ml @ 125 mls/hr Q20H IV 07/21/17 10:00 07/29/17 09:59 Future Hold Cefepime HCl 2000 mg/Syringe 20 ml @ 5 mls/min Q12H IV 07/21/17 02:00 07/28/17 01:59 Physical Exam Date Time Temp Pulse Resp B/P (MAP) Pulse Ox O2 Delivery O2 Flow Rate FiO2 07/20/17 09:14 73 100/62 (75) 07/20/17 07:30 99 Room Air 07/20/17 07:13 36.9 73 18 90/53 (65) 99 Room Air 07/20/17 00:00 Room Air 07/19/17 23:45 36.5 81 20 107/57 (74) 96 Room Air 07/19/17 16:41 36.4 84 18 116/63 Room Air 07/19/17 16:26 36.4 84 18 116/63 (80) 96 Room Air Extremities/Musculoskelatal: + pertinent finding (Left fifth toe is purple discolored has necrosis over the dorsum of the toe and there is some erythema except spreading up the distal forefoot toward the lateral side. This only goes up about 3 cm proximal to the MP joint. 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 Her second toe has a claw/hammertoe deformity with necrotic callus at the tip of the toe which is not draining and there is no erythema this is a very small area of necrosis just a few millimeters round.) Laboratory Results Last 24 Hours Test 07/19/17 17:08 07/19/17 17:53 07/19/17 21:15 07/19/17 23:50 Bedside Glucose 83 mg/dl 151 mg/dl 179 mg/dl Random Cortisol 34.31 mcg/dl Test 07/20/17 07:14 07/20/17 08:20 07/20/17 11:43 Bedside Glucose 210 mg/dl 121 mg/dl White Blood Count 11.69 K/uL Red Blood Count 4.38 M/uL Hemoglobin 10.7 g/dL Hematocrit 32.8 % Mean Corpuscular Volume 74.9 fL Mean Corpuscular Hemoglobin 24.4 pg Mean Corpuscular Hemoglobin Concent 32.6 g/dl Platelet Count 296 K/uL Mean Platelet Volume 10.4 fL Neutrophils (%) (Auto) 70.1 % Lymphocytes (%) (Auto) 21.0 % Monocytes (%) (Auto) 8.4 % Eosinophils (%) (Auto) 0.1 % Basophils (%) (Auto) 0.1 % Neutrophils # (Auto) 8.19 K/uL Lymphocytes # (Auto) 2.46 K/uL Monocytes # (Auto) 0.98 K/uL Eosinophils # (Auto) 0.01 K/uL Basophils # (Auto) 0.01 K/uL RDW Standard Deviation 55.8 fL RDW Coefficient of Variation 20.8 % Immature Granulocyte % (Auto) 0.3 % Immature Granulocyte # (Auto) 0.04 K/uL Large Platelets 1+ Hypochromasia PRESENT Microcytosis PRESENT Echinocytes 1+ Sodium Level 131 mmol/L Potassium Level 5.0 mmol/L Chloride Level 100 mmol/L Carbon Dioxide Level 27 mmol/L Anion Gap 4.0 mmol/L Blood Urea Nitrogen 35 mg/dl Creatinine 1.65 mg/dl Est Creatinine Clear Calc Drug Dose 42.3 ml/min Estimated GFR () 37.6 Estimated GFR (Non- 32.5 BUN/Creatinine Ratio 21.3 Random Glucose 194 mg/dl Estimated Average Glucose 200 mg/dl Hemoglobin A1c 8.6 % Calcium Level 8.2 mg/dl Magnesium Level 1.6 mg/dl Total Bilirubin 0.4 mg/dl Aspartate Amino Transf (AST/SGOT) 28 U/L Alanine Aminotransferase (ALT/SGPT) 30 U/L Alkaline Phosphatase 87 U/L Total Protein 5.6 gm/dl Albumin 2.3 gm/dl Globulin 3.3 gm/dl Albumin/Globulin Ratio 0.7 Assessment & Plan Necrosis fifth toe. TERRIE studies demonstrate normal findings. Small vessel disease due to diabetes. This will likely require amputation. The second toe right foot can be observed in a properly padded for now. Dr. Donald foot and ankle specialist will assess patient with regard to surgery. MRI of the left foot may be helpful to rule out underlying osteomyelitis if okay with renal function per medical service.
[2017-07-20] MEDS: PRAMIPEXOLE DIHYDROCHLORIDE 0.25MG TAB PO SCH (20:58)
[2017-07-20] MEDS: VENLAFAXINE HCL XR 150 MG CAPXR PO SCH (20:58)
[2017-07-20] MEDS: MIRTAZAPINE TAB 15 MG TAB PO SCH (20:59)
[2017-07-20] MEDS: TRAZODONE HCL 50 MG TAB PO SCH (20:59)
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
[2017-07-20 23:09] VITALS: BP 103/66; PULSE 75; TEMP 36.7; O2SAT 97
[2017-07-21] MEDS: TRAMADOL HCL 50 MG TAB PO PRN ×3 (01:17→15:48)
[2017-07-21] MEDS: CEFEPIME IV 2,000 MG in SYRINGE 7.5 ML IV SCH ×2 (01:18→13:52)
[2017-07-21] MEDS: LEVOTHYROXINE 150 MCG TAB PO SCH (06:11)
[2017-07-21] MEDS: HEPARIN SOD 5000 UNIT/0.5 ML CARP SQ SCH ×3 (06:24→21:42)
[2017-07-21 07:11] VITALS: BP 99/65; PULSE 73; TEMP 36.5; O2SAT 95
[2017-07-21] MEDS: CARVEDILOL 6.25 MG TAB PO SCH ×2 (07:24→21:37)
[2017-07-21] MEDS: CLOPIDOGREL BISULFATE 75 MG TAB PO SCH (07:30)
[2017-07-21] MEDS: ASPIRIN 81 MG ECTAB PO SCH (07:30)
[2017-07-21] MEDS: LACTOBACILLUS ACIDOPHILUS (FLORANEX) TAB PO SCH ×3 (07:30→17:01)
[2017-07-21] MEDS: MAGNESIUM OXIDE 400 MG TAB PO SCH ×2 (07:30→21:35)
[2017-07-21] MEDS: VENLAFAXINE HCL XR 75 MG CAPXR PO SCH (07:30)
[2017-07-21] MEDS: OXYBUTYNIN CHLORIDE 5 MG TAB PO SCH ×2 (07:30→21:34)
[2017-07-21] MEDS: POTASSIUM CHLORIDE 20 MEQ TABCR PO SCH (07:31)
[2017-07-21] MEDS: SPIRONOLACTONE 25 MG TAB PO SCH ×2 (07:31→17:01)
[2017-07-21] MEDS: PREGABALIN 150 MG CAP PO SCH ×2 (07:31→21:33)
[2017-07-21 08:00] VITALS: O2SAT 95
[2017-07-21] MEDS: INSULIN GLARGINE SOLOSTAR 100 UNITS/ML 3 ML PEN SC SCH ×2 (08:00→20:00)
[2017-07-21 08:12] LABS: BASO % 0.3 %; BASO ABS # 0.03 K/uL (0-0.2); EOS % 1.9 %; EOS ABS # 0.21 K/uL (0-0.5); HEMATOCRIT 33.9 % (37-47); HEMOGLOBIN 10.8 g/dL (12.0-16.0); IG# 0.04 K/uL (0.00-0.02); LYMPH % 35.1 %; LYMPH ABS # 3.81 K/uL (1.2-3.4); MEAN CELL VOLUME 75.7 fL (80-100); MEAN CORPUSCULAR HEMOGLOBIN 24.1 pg (25-34); MEAN CORPUSCULAR HGB CONC 31.9 g/dl (32-36); MEAN PLATELET VOLUME 10.7 fL (7.4-10.4); MONO % 10.1 %; NEUT % 52.2 %; NEUT ABS # 5.66 K/uL (1.4-6.5); NUCLEATED RED BLOOD CELL ABS 0.04 K/uL (0-0); PLATELET COUNT 296 K/uL (130-400); RED CELL DISTRIBUTION WIDTH CV 21.1 % (11.5-14.5); RED CELL DISTRIBUTION WIDTH SD 57.9 fL (36.4-46.3); WHITE BLOOD COUNT 10.85 K/uL (4.8-10.8)
[2017-07-21 08:41] LABS: CALCIUM 8.4 mg/dl (8.5-10.1); CREATININE 1.73 mg/dl (0.60-1.20)
[2017-07-21] MEDS: INSULIN ASPART 100 UNITS/ML 3 ML PEN SC SCH ×5 (09:02→22:00)
[2017-07-21] MEDS ORDERED: VANCOMYCIN IV 1,250 MG in SODIUM CHLORIDE 0.9% 250ML 250 ML IV SCH (10:00)
[2017-07-21] MEDS ORDERED: VANCOMYCIN IV 1,250 MG in SODIUM CHLORIDE 0.9% 250ML 250 ML IV ONE (11:15)
--- NOTE | 2017-07-21 12:36 | Pharmacy Progress Note ---
Pharmacy Glycemic Short Note 2 Date of Service Jul 21, 2017. OUTPATIENT ANTIDIABETIC REGIMEN: * Toujeo 68 units SQ HS (recently decreased from 80 units) + humalog 20 units with meals * A1c = 8.6% on 07/20/17 Test 07/20/17 17:04 07/20/17 20:50 07/21/17 07:21 07/21/17 07:31 Bedside Glucose 84 mg/dl (70-90) 97 mg/dl (70-90) 86 mg/dl (70-90) Random Glucose 85 mg/dl (70-99) Test 07/21/17 11:38 Bedside Glucose 132 mg/dl (70-90) ASSESSMENT: 07/21/17 * Ms. Marsh received 52 units of insulin yesterday, BSGs as above have pretty much remained below goal * SCr has increased further today, so patient will continue to be more insulin sensitive * In addition, IV dextrose was d/c'd yesterday ~1600 * Patient did not receive any Lantus last night or this AM, and BSGs are still only 132 mg/dL at lunch * Will plan to continue with the same insulin regimen. If BSGs become more elevated tonight, she will receive Lantus based upon a scale 07/20/17 * Ms. Marsh received only 1 unit of insulin as an inpatient yesterday, due to sliding scale parameters for Lantus and BSGs below goal * As of today, she is no longer hypoglycemic but D5 continues at 80 cc/hr (to be stopped ~1600 today) * In addition, SCr continues to rise so will need to be cautious with insulin dosing * As of this AM, fasting was up to 210 mg/dL - basal will need resumed and will initiate a scale. Based on previous admissions when not on steroids, a basal of ~50 units/day seemed to work. * Will also plan to tighten Novolog parameters now that BSG has increased 07/19/17 * 66 yr old T2DM female admitted with hypoglycemia. Patient was found down at home with BSG of 27 mg/dL. * Per H&P, Toujeo dose was recently decreased from 80 units to 68 units qHS due to episodes of hypoglycemia. * Pt is currently ordered fluids with D5% @ 80 ml/min. * Will hold basal insulin until BSG recovers to 180 mg/dL. Will start with reduced bolus insulin parameters to avoid hypoglycemia and titrate conservatively as BSG allows. PLAN FOR INPATIENT GLYCEMIC CONTROL: * Basal insulin - no change * Lantus BID as per the following scale: * Hold for BSG < 120 * 15 units for BSG 120-200 * 25 units for BSG > 200 * Bolus insulin - no change * NovoLog per scale ACHS or Q6hrs while NPO * Goal Range: Low 120 mg/dL - High 150 mg/dL * Correction Factor: 25 mg/dL/unit * Nutritional / Prandial insulin per carb ratio of 1 unit per 8 grams CHO consumed PLAN FOR DISCHARGE: * Hypoglycemic prior to admission and basal dose also just recently reduced * As long as SCr back to baseline on discharge, recommend further reduction in basal to: * Toujeo 58 units qHS * Continue Humalog 20 units w/ meals
--- NOTE | 2017-07-21 14:47 | Orthopedic Progress Note ---
Orthopedic Progress Note Date of Service Jul 21, 2017. Objective Left 5th toe dorsal necrosis, definite odor, erythema dorsal forefoot. Right 2nd toe ulcer tip of toe, no significant erythema or drainage Date Time Temp Pulse Resp B/P (MAP) Pulse Ox O2 Delivery O2 Flow Rate FiO2 07/21/17 08:00 95 Room Air 07/21/17 07:11 36.5 73 22 99/65 (76) 95 Room Air 07/20/17 23:53 Room Air 07/20/17 23:09 36.7 75 20 103/66 (78) 97 Room Air 07/20/17 16:00 36.7 60 18 107/67 (80) 95 Room Air 07/20/17 16:00 95 Room Air Laboratory Results 24 Hours: Test 07/21/17 07:31 White Blood Count 10.85 K/uL Red Blood Count 4.48 M/uL Hemoglobin 10.8 g/dL Hematocrit 33.9 % Mean Corpuscular Volume 75.7 fL Mean Corpuscular Hemoglobin 24.1 pg Mean Corpuscular Hemoglobin Concent 31.9 g/dl Platelet Count 296 K/uL Mean Platelet Volume 10.7 fL Neutrophils (%) (Auto) 52.2 % Lymphocytes (%) (Auto) 35.1 % Monocytes (%) (Auto) 10.1 % Eosinophils (%) (Auto) 1.9 % Basophils (%) (Auto) 0.3 % Neutrophils # (Auto) 5.66 K/uL Lymphocytes # (Auto) 3.81 K/uL Monocytes # (Auto) 1.10 K/uL Eosinophils # (Auto) 0.21 K/uL Basophils # (Auto) 0.03 K/uL Assessment & Plan Assessment: 66 yo female with necrotic left 5th toe and ulcer right 2nd toe Plan: Pt on for OR tomorrow with Dr Donald for left 5th toe I&D vs amp and possible I& D right 2nd toe
[2017-07-21 14:49] VITALS: BP 106/69; PULSE 65; TEMP 36.3; O2SAT 95
--- NOTE | 2017-07-21 15:13 | Pharmacy Progress Note ---
Pharmacy Abx Dose Short Note Date of Service Jul 21, 2017. Assessment & Plan Assessment 66 year old female receiving vancomycin and cefepime for treatment of LLE cellulitis with concern for osteo Day # 3 of antimicrobial therapy. SCr continues to rise. Spoke with Dr. Saucedo today to see if vancomycin was still necessary, especially considering SCr. With concern for possible osteo, he would like to continue for now. Will need to be extremely cautious with dosing in setting of renal impairment. Plan Vancomycin * Trough level of 17.9 mcg/mL is therapeutic but this is only after 2 doses. Suspect she will continue to accumulate with elevated BMI and rising SCr. * Change to 1250 mg IV every 24 hours * Goal trough level for possible osteo : 15 to 20 mcg/mL * Repeat trough level ordered for: 07/23/17 prior to the noon dose * If SCr continues to rise, consider switching to alternative agent Cefepime - not a pharmacy consult * Dosed at 2 gm IV q12h - this was appropriately adjusted yesterday for renal function Pharmacy will continue to follow and will adjust dose/frequency as necessary. Thank you.
[2017-07-21 15:46] VITALS: O2SAT 95
[2017-07-21] MEDS: DAPTOmycin IV 400 MG in SYRINGE 0 ML IV SCH (18:33)
[2017-07-21] MEDS: MIRTAZAPINE TAB 15 MG TAB PO SCH (21:34)
[2017-07-21] MEDS: PRAMIPEXOLE DIHYDROCHLORIDE 0.25MG TAB PO SCH (21:34)
[2017-07-21] MEDS: TRAZODONE HCL 50 MG TAB PO SCH (21:37)
[2017-07-21] MEDS: VENLAFAXINE HCL XR 150 MG CAPXR PO SCH (21:37)
[2017-07-21 22:49] VITALS: BP 109/71; PULSE 74; TEMP 36.6; O2SAT 97
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
[2017-07-22] VITALS (10 sets, daily range): BP systolic 99–135; BP diastolic 66–83; PULSE 71–82; TEMP 36.2–36.8; O2SAT 93–100
[2017-07-22] MEDS: CEFEPIME IV 2,000 MG in SYRINGE 7.5 ML IV SCH ×2 (02:31→16:37)
[2017-07-22] MEDS: HEPARIN SOD 5000 UNIT/0.5 ML CARP SQ SCH ×3 (05:55→20:22)
[2017-07-22] MEDS: LEVOTHYROXINE 150 MCG TAB PO SCH (05:55)
[2017-07-22 06:18] LABS: BASO % 0.3 %; BASO ABS # 0.03 K/uL (0-0.2); EOS % 3.5 %; EOS ABS # 0.33 K/uL (0-0.5); HEMATOCRIT 33.1 % (37-47); HEMOGLOBIN 10.7 g/dL (12.0-16.0); IG# 0.08 K/uL (0.00-0.02); LYMPH % 35.2 %; LYMPH ABS # 3.27 K/uL (1.2-3.4); MEAN CELL VOLUME 75.7 fL (80-100); MEAN CORPUSCULAR HEMOGLOBIN 24.5 pg (25-34); MEAN CORPUSCULAR HGB CONC 32.3 g/dl (32-36); MEAN PLATELET VOLUME 11.4 fL (7.4-10.4); MONO % 9.9 %; MONO ABS # 0.92 K/uL (0.11-0.59); NEUT % 50.2 %; NEUT ABS # 4.67 K/uL (1.4-6.5); PLATELET COUNT 292 K/uL (130-400); RED CELL DISTRIBUTION WIDTH CV 20.9 % (11.5-14.5); RED CELL DISTRIBUTION WIDTH SD 57.4 fL (36.4-46.3)
[2017-07-22 06:49] LABS: CREATININE 1.36 mg/dl (0.60-1.20)
[2017-07-22] MEDS: LACTOBACILLUS ACIDOPHILUS (FLORANEX) TAB PO SCH ×3 (08:00→16:32)
[2017-07-22] MEDS: OXYBUTYNIN CHLORIDE 5 MG TAB PO SCH ×2 (08:00→20:16)
[2017-07-22] MEDS ORDERED: DAPTOmycin IV 400 MG in SODIUM CHLORIDE 0.9% 50ML 50 ML IV SCH (08:00)
[2017-07-22] MEDS: CARVEDILOL 6.25 MG TAB PO SCH ×2 (08:00→20:17)
[2017-07-22] MEDS: MAGNESIUM OXIDE 400 MG TAB PO SCH ×2 (08:00→20:15)
[2017-07-22] MEDS: INSULIN ASPART 100 UNITS/ML 3 ML PEN SC SCH ×4 (08:37→20:21)
[2017-07-22] MEDS: INSULIN GLARGINE SOLOSTAR 100 UNITS/ML 3 ML PEN SC SCH ×2 (08:37→20:22)
[2017-07-22] MEDS: SPIRONOLACTONE 25 MG TAB PO SCH ×2 (09:00→16:32)
--- NOTE | 2017-07-22 10:41 | Progress Note ---
Progress Note Date of Service Jul 22, 2017. Progress Note ID Consult Dictated #[id number] A/P: 1. Diabetic foot infection with necrosis -Continue abx -For OR today, please obtain culture -Will follow, thank you
--- NOTE | 2017-07-22 10:47 | Pharmacy Progress Note ---
Pharmacy Glycemic Short Note 2 Date of Service Jul 22, 2017. OUTPATIENT ANTIDIABETIC REGIMEN: * Toujeo 68 units SQ HS (recently decreased from 80 units) + humalog 20 units with meals * A1c = 8.6% on 07/20/17 Item Value Date Time Bedside Glucose 86 mg/dl 07/21/17 0721 Bedside Glucose 132 mg/dl H 07/21/17 1138 Bedside Glucose 167 mg/dl H 07/21/17 1646 Bedside Glucose 112 mg/dl H 07/21/172007 Bedside Glucose 173 mg/dl H 07/22/17 0732 ASSESSMENT: * 66yo T2DM female with poor outpatient control per recent A1c. Goal A1c likely 7.5-8% based on age/comorbidities * Pt with necrotic left 5th toe and ulcer right 2nd toe. Pt NPO today for OR for I&D vs amputation * Tight glycemic control pre & post-operatively essential for post-op wound healing. * Goal is to maintain ALL BSG <200 mg/dl (ideally <150 mg/dl) for the first 72 hrs post-op * Pt requiring significantly less insulin inhouse as compared to outpatient dosing- most likely d/t controlled CHO intake with hospital diet. Will continue to titrate current dosing (weight based dosing) to maintain tight glycemic control. PLAN FOR INPATIENT GLYCEMIC CONTROL: * Basal insulin - no change * Lantus BID as per the following scale: * Hold for BSG < 120 * 15 units for BSG 120-200 * 25 units for BSG > 200 * Bolus insulin - no change * NovoLog per scale ACHS or Q6hrs while NPO * Goal Range: Low 120 mg/dL - High 150 mg/dL * Correction Factor: 25 mg/dL/unit * Nutritional / Prandial insulin per carb ratio of 1 unit per 8 grams CHO consumed PLAN FOR DISCHARGE: * Need to ensure that the patient has the skills needed to adjust insulin dosing to maintain BSGs <200 mg/dl post-operatively. * Adjustments likely needed to outpatient regimen based on A1c, reduced insulin requirements in house, and hypoglycemia on admission. * Doses TBD closer to discharge. Although A1c elevated, this may be d/t missing insulin doses and actual outpatient regimen dosing may need to be reduced.
[2017-07-22] MEDS ORDERED: VANCOMYCIN IV 1,250 MG in SODIUM CHLORIDE 0.9% 250ML 250 ML IV SCH (12:00)
--- NOTE | 2017-07-22 12:15 | INFECT. DISEASE CONSULTATION ---
DATE OF CONSULTATION: 07/22/2017 HISTORY OF PRESENT ILLNESS: This is a 66-year-old female who was admitted to the hospital after she was found unresponsive at home by family members. She was found to be hypoglycemic with a glucose of 27. In the ER, her glucose was 42. She has been treated for this with improvement. She initially had a leukocytosis of 13,000, which has improved. She was also found to be hypothermic upon admission with the temp of 32.7. Her temperatures have subsequently normalized. She was initially placed on vancomycin and cefepime, but had an increase in her creatinine up to 1.7 during this admission. She was subsequently changed to daptomycin yesterday and infectious diseases was consulted for antibiotic approval. She did have blood cultures in the Emergency Room as part of her initial workup and they are negative to date. Her imaging has been unremarkable. She also had an x-ray of the foot secondary to ulcerations on the left toe. These were negative for osteomyelitis. She was found to have a necrotic fifth toe. An orthopedic surgery has been involved. She did have ABIs, which were normal; however, she is due to have an amputation of her fifth toe today. There are no cultures from this admission, but several cultures in 2017 grew coagulase negative staph with no sensitivity and one culture grew MSSA with resistance to doxycycline. She currently denies any pain. She is tolerating antibiotics well. She denies any fevers or chills. She denies any nausea, vomiting, diarrhea or abdominal pain. She has no cough, shortness of breath or wheezing. She is awaiting a toe amputation later today. Her remaining review of systems is unremarkable. PAST MEDICAL HISTORY: Significant for asthma, hypertension, type 2 diabetes with retinopathy and neuropathy, coronary artery disease with CABG in 2016, ischemic cardiomyopathy, hyperlipidemia, GERD, hypothyroidism, obstructive sleep apnea with CPAP, depression, chronic back pain, restless leg syndrome, vitamin D deficiency, congestive heart failure and history of hysterectomy. FAMILY HISTORY: Noncontributory. SOCIAL HISTORY: Significant for history of tobacco use. She denies any alcohol or drug use. She lives alone and recently was discharged from [facility]. ALLERGIES: SHE HAS ALLERGIES TO CLINDAMYCIN, LASIX, STATINS, BACTRIM, AMOXICILLIN, LATEX, TRIAMCINOLONE, DICLOFENAC AND ACETAMINOPHEN. CURRENT MEDICATIONS: Daptomycin, cefepime, aspirin, Plavix, potassium, Lyrica, Effexor, Lantus, Synthroid, Ultram, subQ heparin, Remeron, trazodone, Mirapex, Coreg, magnesium, Ditropan, Aldactone Floranex, insulin, Zofran, Ventolin. PHYSICAL EXAMINATION: VITAL SIGNS: She is afebrile, pulse 71, respiratory rate 18, blood pressure 109/71, oxygen saturation is 95% on room air. GENERAL: She is awake, alert and oriented x3. She is in no acute distress. HEENT: Mucous membranes are dry. HEART: Regular. LUNGS: Clear. ABDOMEN: Soft and nondistended. EXTREMITIES: There is no lower extremity edema. Examination of the left foot reveals necrosis of the fifth digit with foul odor. There is no purulent drainage. There is no surrounding erythema. There is no warmth. There is no streaking. LABORATORY STUDIES: CBC today: White blood cell count 9.3, hemoglobin 10.7, platelets 292. Chemistry panel yesterday sodium 131, potassium 5.0, chloride 99, bicarbonate 26, BUN 40, creatinine 1.7, glucose is 86. LFTs on the were within normal limits. Hemoglobin A1c is elevated at 8.6. Urinalysis in the ER is negative. A random vancomycin level done yesterday was 17.9. Blood cultures from the remain negative. IMAGING: As above. ASSESSMENT AND PLAN: Diabetic foot ulceration with necrosis. I agree with amputation. She will remain on empiric antibiotics. I do not see any recent gram negative bacteria on outpatient cultures. She mainly has grown coagulase negative staph without sensitivity in the past. Intraoperative cultures should be obtained to help with antibiotic management moving forward. We will follow along with you.
[2017-07-22] MEDS ORDERED: MIDAZOLAM HCL 1 MG/ML 2ML VIAL ONE (14:26)
[2017-07-22] MEDS ORDERED: PROPOFOL IV EMULSION 10 MG/ML 20 ML VIAL IV ONE (14:26)
[2017-07-22] MEDS ORDERED: LIDOCAINE HCL 2% 2 ML VIAL (20MG/ML) ONE (14:26)
[2017-07-22] MEDS ORDERED: FENTANYL CITRATE INJ 50 MCG/1 ML 2 ML VIAL ONE (14:27)
--- NOTE | 2017-07-22 14:27 | History & Physical Bridge Note ---
H&P Re-Evaluation Bridge Note: I have examined the patient, reviewed the History & Physical and in the interval since the performance of the History & Physical I have noted the following changes of clinical significance: No changes noted
[2017-07-22] MEDS ORDERED: LIDOCAINE HCL 1% 20 ML VIAL ONE (15:01)
[2017-07-22] MEDS ORDERED: BACITRACIN 50000 UNIT VIAL ONE (15:02)
[2017-07-22] MEDS ORDERED: ATROPINE SULFATE 0.1 MG/ML 5ML SYR IV PRN (15:15)
[2017-07-22] MEDS ORDERED: EpHEDrine SULFATE INJ 50 MG/ML AMP IV PRN (15:15)
--- NOTE | 2017-07-22 15:45 | [facility] Post Operative Brief Note ---
Immediate Operative Summary Operative Date Jul 22, 2017. Pre-Operative Diagnosis Necrotic left 5th toe, Ulcer right 2nd toe Post-Operative Diagnosis Left Necrotic left 5th toe, Right Deep Diabetic Ulcer right 2nd toe, Right Flexor contracture right 2nd toe Procedure(s) Performed 1. Left 5th Toe Amputation; 2. Right 2nd Toe debridement Diabetic ulcer and subcutaneous fascia and fat; 3. Right 2nd toe Flexor tenotomy right Surgeon Dr. Donald Entry Operator Surgeon(s) None Estimated Blood Loss 2cc Findings Consistent with Post-Op Diagnosis Specimens A. Left 5th toe Drains 1/2" iodoform gauze left foot Anesthesia Type MAC (with local bilateral feet) Complication(s) none Disposition Accompanied Pt To Recover: no Disposition: Recovery Room / PACU
--- NOTE | 2017-07-22 16:17 | Anesthesiology Progress Note ---
Anesthesia Post Op Note Date & Time Jul 22, 2017 at 16:17 Vital Signs Pain Intensity: 0 Vital Signs Past 12 Hours Date Time Temp Pulse Resp B/P (MAP) Pulse Ox O2 Delivery O2 Flow Rate FiO2 07/22/17 16:05 36.6 79 14 159/85 100 Nasal Cannula 2 07/22/17 15:55 87 14 148/85 (94) 100 Oxymask 10 07/22/17 15:49 36.5 88 14 140/85 99 Oxymask 10 07/22/17 08:00 95 Room Air 07/22/17 07:07 36.7 71 18 109/71 (84) 95 Room Air Notes Mental Status: alert / awake / arousable, participated in evaluation Pt Amnestic to Procedure: Yes Nausea / Vomiting: adequately controlled Pain: adequately controlled Airway Patency, RR, SpO2: stable & adequate BP & HR: stable & adequate Hydration State: stable & adequate Anesthetic Complications: no major complications apparent
[2017-07-22] MEDS: VENLAFAXINE HCL XR 75 MG CAPXR PO SCH (16:19)
[2017-07-22] MEDS: PREGABALIN 150 MG CAP PO SCH ×2 (16:19→20:23)
[2017-07-22] MEDS: POTASSIUM CHLORIDE 20 MEQ TABCR PO SCH (16:31)
[2017-07-22] MEDS: ASPIRIN 81 MG ECTAB PO SCH (16:31)
[2017-07-22] MEDS: CLOPIDOGREL BISULFATE 75 MG TAB PO SCH (16:33)
--- NOTE | 2017-07-22 16:49 | OPERATIVE REPORT ---
DATE OF OPERATION: 07/22/2017 PREOPERATIVE DIAGNOSES: 1. Left foot fifth toe necrosis with osteomyelitis. 2. Right second toe diabetic ulcer to the level of the fascia and subcutaneous tissue. 3. Right toe, second toe flexor contracture. POSTOPERATIVE DIAGNOSES: Same. PROCEDURE: 1. Left foot fifth toe amputation. 2. Right foot second toe flexor tenotomy. 3. Debridement of distal diabetic ulcer of the second toe through the skin, subcutaneous tissue, and fascia. SURGEON: James Donald DO. ELECTRONIC SERVICE TECHNICIAN: None. ANESTHESIA: Local with monitored anesthesia care and sedation. SPECIMENS: Left fifth toe. DRAINS: Iodoform gauze one-half inch x1, left foot. COMPLICATIONS: None. BLOOD LOSS: 3 mL. PERTINENT HISTORY: This is a 66-year-old female who is a chronic longstanding diabetic. She noticed ulceration, redness of her left fifth toe. Placed a Band-Aid on it and then became septic. She presented to [facility], presented to the hospitalist service, was placed on IV antibiotics, noted necrosis and gangrene of the left fifth toe and was then scheduled for surgery as indicated. Also noted clawing of the right second toe and distal diabetic ulcer. All potential risks, benefits, complications, alternatives, rehab, potential for incomplete relief of symptoms, need for DVT, PE, , persistent pain, swelling, scarring, weakness, neurovascular injury, wound complications, need for further surgery discussed with the patient. The patient decided to proceed with the procedure as indicated. DESCRIPTION OF PROCEDURE: The patient was taken to the operative suite and placed supine on the operating room table. After review of the consent and identification of proper operative site, the patient was then sedated, monitored anesthesia care was administered. Bilateral lower extremities were then sterilely prepped and draped in usual fashion. The left was elevated and exsanguinated partially from the heel proximally with a 4-inch Esmarch bandage and Esmarch tourniquet was applied over sterile surgical towel at the level of the ankle. Next, a 15 blade scalpel was used to transect the fifth toe dorsally leaving a large tissue flap as able. There is a watershed deficit in the vascularity in the dorsum of the toe indicating some sort of thrombotic or embolic event in one of the small vessels. The adjacent soft tissue exhibit necrosis in a cristian-shaped pattern. Next, the tissue margins were developed according to this cristian-shaped pattern. Next, the bone was then shelled out from the dorsum of the fifth toe, noted to be features consistent with osteomyelitis with significant softening of the middle and distal phalanges. Next, the collateral ligaments were then sectioned from the proximal phalanx of the fifth toe. This was passed off as specimen. Next, the flap was then fashioned and debrided with a 15 blade scalpel. The flexor tendon was then placed on stretch and then transected. The extensor tendon was then resected with a rongeur and 15 blade scalpel. After all necrotic debris and tissue was then resected, the wound was copiously irrigated with pulsatile lavage and bacitracin until clear. Next, the tissue flap was then debrided and reshaped and a one-half inch iodoform gauze was placed into the wound exiting the dorsal lateral aspect of the foot through a small stab incision. The tissue flap was then closed using interrupted horizontal mattress 3-0 nylon sutures. Next, attention then directed toward the second toe. A digital block was then performed with 5 mL of 1% lidocaine at the base of the second toe and a 15 blade scalpel was then used to make an incision in the base of the second toe. Careful dissection was performed with tenotomy scissors to the flexor tendon. Appropriate retractors were placed medially and laterally and then the flexor tendon was then transected released and flexion contracture of the toe. The toe was manipulated and flexion contracture was then removed. Next, the wound was copiously irrigated with sterile normal saline and then the incision was closed using 3-0 nylon. Next, attention then directed toward the distal aspect of the second toe tip. A 15 blade scalpel was used to sharply debride the 6 mm diameter ulcer through skin, subcutaneous fat, and fascia. After all necrotic debris was resected, was irrigated with pulsatile lavage. Next, the sterile compressive dressings were applied to the right foot and the left foot respectively. The tourniquet was released in the left and then Coban dressings were applied. The patient was awakened and transported to recovery in stable condition. I attest to the content of the Intraoperative Record and any orders documented therein. Any exceptions are noted below. GISEL
[2017-07-22] MEDS: DAPTOmycin IV 400 MG in SYRINGE 0 ML IV SCH (17:46)
[2017-07-22] MEDS: TRAMADOL HCL 50 MG TAB PO PRN (19:07)
[2017-07-22] MEDS: VENLAFAXINE HCL XR 150 MG CAPXR PO SCH (20:16)
[2017-07-22] MEDS: MIRTAZAPINE TAB 15 MG TAB PO SCH (20:17)
[2017-07-22] MEDS: TRAZODONE HCL 50 MG TAB PO SCH (20:17)
[2017-07-22] MEDS: PRAMIPEXOLE DIHYDROCHLORIDE 0.25MG TAB PO SCH (20:19)
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
[2017-07-23] MEDS: CEFEPIME IV 2,000 MG in SYRINGE 7.5 ML IV SCH ×2 (02:32→13:25)
[2017-07-23 04:03] VITALS: BP 110/67; PULSE 67; TEMP 36.6; O2SAT 98
[2017-07-23] MEDS: TRAMADOL HCL 50 MG TAB PO PRN ×3 (04:27→19:48)
[2017-07-23] MEDS: LEVOTHYROXINE 150 MCG TAB PO SCH (06:06)
[2017-07-23] MEDS: HEPARIN SOD 5000 UNIT/0.5 ML CARP SQ SCH ×3 (06:10→20:30)
[2017-07-23 07:06] LABS: HEMATOCRIT 34.6 % (37-47); MEAN CELL VOLUME 77.1 fL (80-100); MEAN CORPUSCULAR HEMOGLOBIN 24.5 pg (25-34); MEAN CORPUSCULAR HGB CONC 31.8 g/dl (32-36); MEAN PLATELET VOLUME 10.8 fL (7.4-10.4); PLATELET COUNT 331 K/uL (130-400); RED CELL DISTRIBUTION WIDTH CV 21.3 % (11.5-14.5); RED CELL DISTRIBUTION WIDTH SD 59.2 fL (36.4-46.3); WHITE BLOOD COUNT 10.35 K/uL (4.8-10.8)
[2017-07-23 07:34] VITALS: BP 134/72; PULSE 73; TEMP 36.8; O2SAT 93
[2017-07-23 07:43] LABS: CALCIUM 9.2 mg/dl (8.5-10.1); CREATININE 0.99 mg/dl (0.60-1.20); POTASSIUM 5.1 mmol/L (3.5-5.1)
[2017-07-23 08:00] VITALS: O2SAT 93
[2017-07-23] MEDS: INSULIN GLARGINE SOLOSTAR 100 UNITS/ML 3 ML PEN SC SCH ×2 (08:00→20:00)
[2017-07-23] MEDS: POTASSIUM CHLORIDE 20 MEQ TABCR PO SCH (08:00)
[2017-07-23] MEDS: OXYBUTYNIN CHLORIDE 5 MG TAB PO SCH ×2 (08:21→20:22)
[2017-07-23] MEDS: CARVEDILOL 6.25 MG TAB PO SCH ×2 (08:21→20:28)
[2017-07-23] MEDS: VENLAFAXINE HCL XR 75 MG CAPXR PO SCH (08:22)
[2017-07-23] MEDS: LACTOBACILLUS ACIDOPHILUS (FLORANEX) TAB PO SCH ×3 (08:22→17:22)
[2017-07-23] MEDS: ASPIRIN 81 MG ECTAB PO SCH (08:22)
[2017-07-23] MEDS: CLOPIDOGREL BISULFATE 75 MG TAB PO SCH (08:23)
[2017-07-23] MEDS: MAGNESIUM OXIDE 400 MG TAB PO SCH ×2 (08:23→20:29)
[2017-07-23] MEDS: PREGABALIN 150 MG CAP PO SCH ×2 (08:23→20:34)
[2017-07-23] MEDS: INSULIN ASPART 100 UNITS/ML 3 ML PEN SC SCH ×4 (08:35→20:31)
[2017-07-23] MEDS: SPIRONOLACTONE 25 MG TAB PO SCH ×2 (08:36→17:21)
[2017-07-23] MEDS ORDERED: INSULIN GLARGINE SOLOSTAR 100 UNITS/ML 3 ML PEN SC ONE ×2 (09:30)
[2017-07-23] MEDS ORDERED: VANCOMYCIN TROUGH ONE (11:30)
--- NOTE | 2017-07-23 11:49 | Pharmacy Progress Note ---
Glycemic: Assessment & Plan Date of Service Jul 23, 2017. Assessment & Plan Assessment * 66 yo F with T2DM admitted with hypoglycemia (BSG 27 mg/dL at home prior to admission), now POD 1 s/p L toe I&D. * BSG's ranging 118-174 mg/dL over the last 24 hours * Basal insulin resumed yesterday AM after being held x36 hours. Total of 30 units Lantus yesterday - AM fasting decreased from 173 mg/dL on 07/22 to 118 mg/ dL today * Patient will require a reduction in basal insulin 2nd significant decrease in AM fasting BSG and recent severe hypoglycemia * Will give 10 units this AM. PM Lantus based on BSG, but not to exceed 15 units * No change to Novolog required Plan * Decrease Lantus 10 units x1 this AM then ongoing BID based on BSG * Hold for BSG less than 100 mg/dL * 10 units for BSG 100-180 mg/dL * 15 units for BSG greater than 180 mg/dL * Continue Novolog ACHS * Goal range 120-150 mg/dL * Correction factor: 25 mg/dL/unit * Carb ratio: 1 unit insulin for every 8 g CHO consumed Pharmacy will continue to monitor patient daily and write orders per [facility] inpatient glycemic control protocol. Thanks. * Please note that the plan above was derived based on current level of insulin resistance and hospital stress. These recommendations are appropriate for inpatient admission only. Plan of care upon discharge will need to be reassessed to avoid potential outpatient hypo/hyperglycemia.
--- NOTE | 2017-07-23 13:35 | Orthopedic Progress Note ---
Orthopedic Progress Note Date of Service Jul 23, 2017. Subjective Post OP Day: 1 Reports: feeling well, pain controlled w PO medications, Denies: chest pain, SOB , nausea / vomiting, light headedness, calf pain Objective calves soft nontender, capillary refill less than 2 sec., dressing C/D/I, incision C/D/I, A&O x3, toes mobile Date Time Temp Pulse Resp B/P (MAP) Pulse Ox O2 Delivery O2 Flow Rate FiO2 07/23/17 08:00 93 Room Air 07/23/17 07:34 36.8 73 20 134/72 (92) 93 Room Air 07/23/17 04:03 36.6 67 18 110/67 (81) 98 Room Air 07/23/17 00:00 Room Air 07/22/17 22:55 36.8 73 18 99/68 (78) 97 Room Air 07/22/17 20:12 36.7 74 20 107/67 (80) 95 Room Air 07/22/17 19:04 36.7 75 20 105/66 (79) 100 Room Air 07/22/17 17:59 36.4 79 20 122/72 (89) 98 Room Air 07/22/17 17:30 36.5 76 20 121/77 (92) 93 Room Air 07/22/17 17:00 36.2 78 20 115/70 (85) 95 Room Air 07/22/17 16:43 36.5 78 18 135/83 (100) 96 Room Air 07/22/17 16:25 36.6 82 18 134/82 (99) 99 Room Air 07/22/17 16:15 Room Air 07/22/17 16:05 36.6 79 14 159/85 100 Nasal Cannula 2 07/22/17 15:55 87 14 148/85 (94) 100 Oxymask 10 07/22/17 15:49 36.5 88 14 140/85 99 Oxymask 10 Laboratory Results 24 Hours: Test 07/23/17 06:32 Hematocrit 34.6 % Hemoglobin 11.0 g/dL Assessment & Plan Assessment: 66 yo female POD#1 S/P amputation necrotic left 5th toe and debridement ulcer right 2nd toe and flexor tenotomy right 2nd toe. Plan: POD #1 left 5th toe Amputation, I&D right 2nd toe, Flexor tenotomy right 2nd toe Partial packing pulled today left toe amp continue abx. NWB Saba MULLEN will determine DC planning Discharge Planning Discharge Planning: uncertain Therapy: Physical Therapy
[2017-07-23 15:08] VITALS: BP 113/70; PULSE 68; TEMP 36.6; O2SAT 97
[2017-07-23] MEDS: DAPTOmycin IV 400 MG in SYRINGE 0 ML IV SCH (17:22)
[2017-07-23] MEDS: PRAMIPEXOLE DIHYDROCHLORIDE 0.25MG TAB PO SCH (20:23)
[2017-07-23 20:27] VITALS: BP 115/67; PULSE 76
[2017-07-23] MEDS: MIRTAZAPINE TAB 15 MG TAB PO SCH (20:32)
[2017-07-23] MEDS: TRAZODONE HCL 50 MG TAB PO SCH (20:33)
[2017-07-23] MEDS: VENLAFAXINE HCL XR 150 MG CAPXR PO SCH (20:33)
[2017-07-23] MEDS ORDERED: MoRPHine SULFATE 2 MG/ML CARP IV STA (21:41)
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
[2017-07-23 23:32] VITALS: BP 114/63; PULSE 73; TEMP 36.9; O2SAT 95
[2017-07-24] MEDS: CEFEPIME IV 2,000 MG in SYRINGE 7.5 ML IV SCH ×2 (01:43→13:52)
[2017-07-24] MEDS: TRAMADOL HCL 50 MG TAB PO PRN ×3 (05:31→21:08)
[2017-07-24] MEDS: LEVOTHYROXINE 150 MCG TAB PO SCH (05:31)
[2017-07-24] MEDS: HEPARIN SOD 5000 UNIT/0.5 ML CARP SQ SCH ×3 (05:33→21:12)
[2017-07-24 07:19] LABS: CREATININE 0.87 mg/dl (0.60-1.20)
[2017-07-24 07:26] VITALS: BP 116/69; PULSE 69; TEMP 36.6; O2SAT 98
[2017-07-24 08:00] VITALS: O2SAT 98
[2017-07-24] MEDS ORDERED: INSULIN GLARGINE SOLOSTAR 100 UNITS/ML 3 ML PEN SC ONE (08:00)
[2017-07-24] MEDS: POTASSIUM CHLORIDE 20 MEQ TABCR PO SCH (08:00)
[2017-07-24] MEDS: CARVEDILOL 6.25 MG TAB PO SCH ×2 (08:13→21:08)
[2017-07-24] MEDS: OXYBUTYNIN CHLORIDE 5 MG TAB PO SCH ×2 (08:13→21:09)
[2017-07-24] MEDS: VENLAFAXINE HCL XR 75 MG CAPXR PO SCH (08:14)
[2017-07-24] MEDS: ASPIRIN 81 MG ECTAB PO SCH (08:14)
[2017-07-24] MEDS: LACTOBACILLUS ACIDOPHILUS (FLORANEX) TAB PO SCH ×3 (08:15→17:44)
[2017-07-24] MEDS: MAGNESIUM OXIDE 400 MG TAB PO SCH ×2 (08:16→21:09)
[2017-07-24] MEDS: CLOPIDOGREL BISULFATE 75 MG TAB PO SCH (08:17)
[2017-07-24] MEDS: SPIRONOLACTONE 25 MG TAB PO SCH ×2 (08:17→17:43)
[2017-07-24] MEDS: PREGABALIN 150 MG CAP PO SCH ×2 (08:43→21:09)
[2017-07-24] MEDS: INSULIN ASPART 100 UNITS/ML 3 ML PEN SC SCH ×4 (08:49→21:03)
--- NOTE | 2017-07-24 10:00 | Orthopedic Progress Note ---
Orthopedic Progress Note Date of Service Jul 24, 2017. Subjective Post OP Day: 2 Reports: feeling well, pain controlled w PO medications, Denies: chest pain, SOB , nausea / vomiting, light headedness, calf pain Objective calves soft nontender, N/V intact, capillary refill less than 2 sec., dressing C /D/I, incision C/D/I, A&O x3, toes mobile Date Time Temp Pulse Resp B/P (MAP) Pulse Ox O2 Delivery O2 Flow Rate FiO2 07/24/17 07:26 36.6 69 18 116/69 (85) 98 Room Air 07/24/17 00:00 Room Air 07/23/17 23:32 36.9 73 20 114/63 (80) 95 Room Air 07/23/17 20:27 76 115/67 (83) 07/23/17 16:00 Room Air 07/23/17 15:08 36.6 68 20 113/70 (84) 97 Room Air Assessment & Plan Assessment: 66 yo female POD#2 S/P amputation necrotic left 5th toe and debridement ulcer right 2nd toe and flexor tenotomy right 2nd toe. Plan: POD #2 left 5th toe Amputation, I&D right 2nd toe, Flexor tenotomy right 2nd toe packing pulled today left toe amp continue abx. NWB B LE will determine DC planning, most likely back to [facility] Inhouse Planning Pain Management: Ultram DVT Prophylaxis: SCDs, ASA, other (heparin) Additional Notes: waffle boots Discharge Planning Discharge Planning: uncertain Therapy: Physical Therapy
--- NOTE | 2017-07-24 13:14 | Pharmacy Progress Note ---
Glycemic: Assessment & Plan Date of Service Jul 24, 2017. Assessment & Plan Outpatient regimen * Toujeo 68 units SC HS * Humalog 20 units SC AC * HbA1c decreased from 9.6% in April 2017 to 8.6% on 07/20/17 Assessment * 66 yo F with T2DM admitted with hypoglycemia (BSG 27 mg/dL at home prior to admission), now POD 2 s/p L toe I&D. * BSG's ranging 107-174 mg/dL over the last 24 hours * Patient refused PM dose of Lantus last night - BSG's increased slightly overnight * Will give lower one-time dose of Lantus this AM 2nd missed dose last night, but will adjust Lantus so larger dose is administered HS (to make transition back to outpatient HS dosing easier) * No change to Novolog required Plan * Increase Lantus 5 units x1 this AM then ongoing HS based on BSG * 5 units for BSG less than 120 mg/dL * 10 units for BSG 120-180 mg/dL * 15 units for BSG greater than 180 mg/dL * Continue Novolog ACHS * Goal range 120-150 mg/dL * Correction factor: 25 mg/dL/unit * Carb ratio: 1 unit insulin for every 8 g CHO consumed Discharge recommendations Assessment * Patient's outpatient regimen is likely too aggressive as evidenced by the following: * BSG 27 mg/dL prior to arrival on admission * Recent decrease in A1c * Insulin requirements significantly reduced as inpatient as compared to outpatient regimen with good control of BSG's Recommendation * Patient's Toujeo and Humalog should likely be reduced on discharge * Recommend estimation of dose of each based on most recent doses of Lantus and Novolog as inpatient (possibly slightly less aggressive 2nd high risk for hypoglycemia) * Close follow-up soon after discharge with provider who manages outpatient insulin Pharmacy will continue to monitor patient daily and write orders per [facility] inpatient glycemic control protocol. Thanks. * Please note that the plan above was derived based on current level of insulin resistance and hospital stress. These recommendations are appropriate for inpatient admission only. Plan of care upon discharge will need to be reassessed to avoid potential outpatient hypo/hyperglycemia.
[2017-07-24] MEDS ORDERED: NURSING VERBAL MED ORDER ONE (14:30)
[2017-07-24 15:30] VITALS: BP 121/78; PULSE 74; TEMP 36.8; O2SAT 92
[2017-07-24 16:00] VITALS: O2SAT 93
[2017-07-24] MEDS: DAPTOmycin IV 400 MG in SYRINGE 0 ML IV SCH (17:44)
[2017-07-24 21:01] VITALS: BP 119/67; PULSE 80; O2SAT 97
[2017-07-24] MEDS: PRAMIPEXOLE DIHYDROCHLORIDE 0.25MG TAB PO SCH (21:09)
[2017-07-24] MEDS: MIRTAZAPINE TAB 15 MG TAB PO SCH (21:09)
[2017-07-24] MEDS: TRAZODONE HCL 50 MG TAB PO SCH (21:09)
[2017-07-24] MEDS: VENLAFAXINE HCL XR 150 MG CAPXR PO SCH (21:09)
[2017-07-24] MEDS ORDERED: INSULIN GLARGINE SOLOSTAR 100 UNITS/ML 3 ML PEN SC SCH (22:00)
[2017-07-24 23:28] VITALS: BP 104/66; PULSE 77; TEMP 36.9; O2SAT 94
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
[2017-07-25] MEDS: CEFEPIME IV 2,000 MG in SYRINGE 7.5 ML IV SCH (02:04)
[2017-07-25] MEDS: HEPARIN SOD 5000 UNIT/0.5 ML CARP SQ SCH ×3 (06:05→21:08)
[2017-07-25] MEDS: LEVOTHYROXINE 150 MCG TAB PO SCH (06:05)
[2017-07-25] MEDS: TRAMADOL HCL 50 MG TAB PO PRN ×3 (06:13→21:12)
[2017-07-25 07:27] VITALS: BP 109/59; PULSE 69; TEMP 36.8; O2SAT 94
--- NOTE | 2017-07-25 08:11 | Anesthesiology Progress Note ---
Anesthesia Post Op Note Date & Time Jul 25, 2017 at 08:10 Vital Signs Vital Signs Past 12 Hours Date Time Temp Pulse Resp B/P (MAP) Pulse Ox O2 Delivery O2 Flow Rate FiO2 07/25/17 07:27 36.8 69 16 109/59 (76) 94 Room Air 07/25/17 00:00 Room Air 07/24/17 23:28 36.9 77 20 104/66 (79) 94 Room Air 07/24/17 21:01 80 18 119/67 (84) 97 Room Air Notes Mental Status: alert / awake / arousable, participated in evaluation Pt Amnestic to Procedure: Yes Nausea / Vomiting: adequately controlled Pain: adequately controlled Airway Patency, RR, SpO2: stable & adequate BP & HR: stable & adequate Hydration State: stable & adequate Anesthetic Complications: no major complications apparent
[2017-07-25] MEDS: INSULIN ASPART 100 UNITS/ML 3 ML PEN SC SCH ×4 (08:45→21:07)
[2017-07-25] MEDS: ASPIRIN 81 MG ECTAB PO SCH (08:46)
[2017-07-25] MEDS: SPIRONOLACTONE 25 MG TAB PO SCH ×2 (08:46→17:22)
[2017-07-25] MEDS: OXYBUTYNIN CHLORIDE 5 MG TAB PO SCH ×2 (08:46→21:10)
[2017-07-25] MEDS: VENLAFAXINE HCL XR 75 MG CAPXR PO SCH (08:46)
[2017-07-25] MEDS: MAGNESIUM OXIDE 400 MG TAB PO SCH ×2 (08:46→21:10)
[2017-07-25] MEDS: CLOPIDOGREL BISULFATE 75 MG TAB PO SCH (08:46)
[2017-07-25] MEDS: CARVEDILOL 6.25 MG TAB PO SCH ×2 (08:47→21:10)
[2017-07-25] MEDS: LACTOBACILLUS ACIDOPHILUS (FLORANEX) TAB PO SCH ×3 (08:47→17:22)
[2017-07-25] MEDS: PREGABALIN 150 MG CAP PO SCH ×2 (08:49→21:11)
[2017-07-25] MEDS: POLYETHYLENE (MIRALAX) 17 GM PACK PO PRN (09:02)
[2017-07-25 09:22] LABS: HEMATOCRIT 34.5 % (37-47); HEMOGLOBIN 10.8 g/dL (12.0-16.0); MEAN CELL VOLUME 77.7 fL (80-100); MEAN CORPUSCULAR HEMOGLOBIN 24.3 pg (25-34); MEAN CORPUSCULAR HGB CONC 31.3 g/dl (32-36); MEAN PLATELET VOLUME 10.3 fL (7.4-10.4); PLATELET COUNT 292 K/uL (130-400); RED CELL DISTRIBUTION WIDTH CV 21.6 % (11.5-14.5); RED CELL DISTRIBUTION WIDTH SD 60.8 fL (36.4-46.3); WHITE BLOOD COUNT 10.67 K/uL (4.8-10.8)
[2017-07-25 09:36] LABS: INR 1.2 (0.9-1.1); PTT PATIENT 31.7 SECONDS (21.0-31.0)
[2017-07-25 09:52] LABS: CALCIUM 9.1 mg/dl (8.5-10.1); CREATININE 0.93 mg/dl (0.60-1.20); POTASSIUM 4.7 mmol/L (3.5-5.1)
--- NOTE | 2017-07-25 10:04 | Pharmacy Progress Note ---
Glycemic: Assessment & Plan Date of Service Jul 25, 2017. Assessment & Plan The patient is currently receiving ~35 units of insulin per day. BSGs ranging 112 - 174 mg/dl over the past 24hrs. * Basal insulin: Lantus 10-15 units every 24 hours given at bedtime based on BSG * Correctional Insulin: Novolog Correction per scale ACHS Goal Range: Low 110 mg/dL - High 140 mg/dL Correction Factor: 25 mg/dL/unit * Prandial insulin: Per carb ratio of 1 unit per 8 grams CHO consumed BSGs continue to improve, no changes needed to inpatient regimen at this time. Pharmacy will continue to monitor patient daily and write orders per [facility] inpatient glycemic control protocol. Thanks. * Please note that the plan above was derived based on current level of insulin resistance and hospital stress. These recommendations are appropriate for inpatient admission only. Plan of care upon discharge will need to be reassessed to avoid potential outpatient hypo/hyperglycemia.
--- NOTE | 2017-07-25 11:02 | Progress Note ---
Subjective Date of Service: Jul 25, 2017. Subjective Pt evaluation today including: conversation w/ patient, physical exam, chart review, lab review pt doing well. s/p debridement, 4th toe amp, no cultures. previous cutlures from 2017 - MSSA. blood cultures negative and final. tolerating abx. afebrile. no pain, no drainage. no abd pain, no n/v/d. all remaining ros reviewed and are negative. Problem List Medical Problems: (1) ACS (acute coronary syndrome) Status: Acute (2) Acute gastroenteritis Status: Acute (3) Acute head injury Status: Acute (4) Acute hypernatremia Status: Acute (5) Acute kidney injury Status: Acute (6) Avulsion injury of left knee region Status: Acute (7) Cellulitis Status: Acute (8) Cellulitis of right leg Status: Acute (9) CHF (congestive heart failure) Status: Acute (10) CHF exacerbation Status: Acute (11) Contusion of right hip Status: Acute (12) Contusion of right shoulder Status: Acute (13) COPD (chronic obstructive pulmonary disease) Status: Acute (14) COPD exacerbation Status: Acute (15) DKA (diabetic ketoacidoses) Status: Acute (16) Elevated troponin Status: Acute (17) Fall Status: Acute (18) Hyperkalemia Status: Acute (19) Hyperkalemia Status: Acute (20) Hypoglycemia Status: Acute (21) Hypothermia Status: Acute (22) Hypoxia Status: Acute (23) Influenza Status: Acute (24) Osteomyelitis Status: Acute (25) Pneumonia Status: Acute (26) Troponin level elevated Status: Acute (27) Vomiting Status: Acute (28) Weakness Status: Acute Objective Vital Signs Date Time Temp Pulse Resp B/P (MAP) Pulse Ox O2 Delivery O2 Flow Rate FiO2 07/25/17 08:00 Room Air 07/25/17 07:27 36.8 69 16 109/59 (76) 94 Room Air 07/25/17 00:00 Room Air 07/24/17 23:28 36.9 77 20 104/66 (79) 94 Room Air 07/24/17 21:01 80 18 119/67 (84) 97 Room Air 07/24/17 16:00 93 Room Air 07/24/17 15:30 36.8 74 20 121/78 (92) 92 Room Air Physical Exam General Appearance: WD/WN, no apparent distress Eyes: normal inspection, EOMI Neck: supple Respiratory/Chest: lungs clear Cardiovascular: regular rate, rhythm, no edema Abdomen: soft Extremities: non-tender, no pedal edema Neurologic/Psychiatric: alert, oriented x 3 Skin: normal color Comments: b/l foot dressing c/d/i Laboratory Results Item Value Date Time Blood Culture - Final Complete 07/19/17 1237 Blood NO GROWTH Blood Culture - Final Complete 07/19/17 1155 Blood NO GROWTH Last 24 Hours Test 07/24/17 11:39 07/24/17 16:23 07/24/17 20:06 07/25/17 07:47 Bedside Glucose 174 mg/dl 144 mg/dl 112 mg/dl 152 mg/dl Test 07/25/17 09:05 White Blood Count 10.67 K/uL Red Blood Count 4.44 M/uL Hemoglobin 10.8 g/dL Hematocrit 34.5 % Mean Corpuscular Volume 77.7 fL Mean Corpuscular Hemoglobin 24.3 pg Mean Corpuscular Hemoglobin Concent 31.3 g/dl RDW Standard Deviation 60.8 fL RDW Coefficient of Variation 21.6 % Platelet Count 292 K/uL Mean Platelet Volume 10.3 fL Prothrombin Time 12.6 SECONDS Prothromb Time International Ratio 1.2 Activated Partial Thromboplast Time 31.7 SECONDS Partial Thromboplastin Ratio 1.2 Sodium Level 139 mmol/L Potassium Level 4.7 mmol/L Chloride Level 103 mmol/L Carbon Dioxide Level 34 mmol/L Anion Gap 2.0 mmol/L Blood Urea Nitrogen 17 mg/dl Creatinine 0.93 mg/dl Est Creatinine Clear Calc Drug Dose 75.1 ml/min Estimated GFR () 75.3 Estimated GFR (Non- 64.9 BUN/Creatinine Ratio 18.1 Random Glucose 207 mg/dl Calcium Level 9.1 mg/dl Assessment and Plan (1) Diabetic foot ulcer Assessment & Plan: will stop cefepime, continue dapto for now, upon d/c can change to po doxy 100mg po bid x 28 days. continue local wound care.
--- NOTE | 2017-07-25 11:08 | Orthopedic Progress Note ---
Orthopedic Progress Note Date of Service Jul 25, 2017. Subjective Post OP Day: 3 Reports: feeling well, Denies: complaints Objective calves soft nontender, capillary refill less than 2 sec., A&O x3 Left Foot: Dressing removed. Mild drainage noted on old dressing. Sutures intact. Mild swelling and erythema around the wound itself . No overt purulence. Redressed. Right foot: Dressing removed. Minimal drainage noted on dressing. No purulence. Wound benign. Redressed. Date Time Temp Pulse Resp B/P (MAP) Pulse Ox O2 Delivery O2 Flow Rate FiO2 07/25/17 08:00 Room Air 07/25/17 07:27 36.8 69 16 109/59 (76) 94 Room Air 07/25/17 00:00 Room Air 07/24/17 23:28 36.9 77 20 104/66 (79) 94 Room Air 07/24/17 21:01 80 18 119/67 (84) 97 Room Air 07/24/17 16:00 93 Room Air 07/24/17 15:30 36.8 74 20 121/78 (92) 92 Room Air Laboratory Results 24 Hours: Test 07/25/17 09:05 Hematocrit 34.5 % Hemoglobin 10.8 g/dL Prothromb Time International Ratio 1.2 Prothrombin Time 12.6 SECONDS Assessment & Plan Assessment: 66 yo female POD#2 S/P amputation necrotic left 5th toe and debridement ulcer right 2nd toe and flexor tenotomy right 2nd toe. Plan: POD #3 left 5th toe Amputation, I&D right 2nd toe, Flexor tenotomy right 2nd toe continue abx. NWB LLE; If pt understands, she could be WB on the right heel only for transfers DC planning as per CM, Med Service; Ortho will sign off for now. Instructions placed in EMR Inhouse Planning Pain Management: Ultram DVT Prophylaxis: SCDs, ASA, other (heparin) Discharge Planning Discharge Planning: correction facility Therapy: Physical Therapy
--- NOTE | 2017-07-25 11:12 | Consultant Recommendations ---
Sales Service Technician Recommendations Date of Service Jul 25, 2017. Sales Service Technician Recommendations Daily dressing changes. May use small pieces of adaptic of xeroform on the wounds. Redress with 4x4's, kerlix wrap, and maikol bandage Pt to be NWB on the LLE. If patient can manage, she can be WB on the right heel only for transfers. Call with any wound changes, increased redness, drainage, for fever of 101.5 or greater. Follow up with Dr Donald in 7-10 days for wound check. Call for appt. [phone]
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
[2017-07-25 15:07] VITALS: BP 120/65; PULSE 82; TEMP 37; O2SAT 98
[2017-07-25 16:00] VITALS: O2SAT 93
[2017-07-25] MEDS: DAPTOmycin IV 400 MG in SYRINGE 0 ML IV SCH (17:26)
[2017-07-25] MEDS: INSULIN GLARGINE SOLOSTAR 100 UNITS/ML 3 ML PEN SC SCH (18:04)
[2017-07-25 21:05] VITALS: BP 113/68; PULSE 76
[2017-07-25] MEDS: VENLAFAXINE HCL XR 150 MG CAPXR PO SCH (21:07)
[2017-07-25] MEDS: TRAZODONE HCL 50 MG TAB PO SCH (21:10)
[2017-07-25] MEDS: MIRTAZAPINE TAB 15 MG TAB PO SCH (21:11)
[2017-07-25] MEDS: PRAMIPEXOLE DIHYDROCHLORIDE 0.25MG TAB PO SCH (21:11)
[2017-07-25 23:09] VITALS: BP 116/67; PULSE 88; TEMP 36.6; O2SAT 95
[2017-07-26] MEDS: TRAMADOL HCL 50 MG TAB PO PRN ×3 (04:01→17:59)
[2017-07-26] MEDS: LEVOTHYROXINE 150 MCG TAB PO SCH (05:44)
[2017-07-26] MEDS: HEPARIN SOD 5000 UNIT/0.5 ML CARP SQ SCH ×3 (05:47→21:11)
[2017-07-26 07:22] VITALS: BP 103/68; PULSE 73; TEMP 36.9; O2SAT 96
[2017-07-26] MEDS ORDERED: POLYETHYLENE (MIRALAX) 17 GM PACK PO ONE (08:30)
[2017-07-26] MEDS ORDERED: INSULIN GLARGINE SOLOSTAR 100 UNITS/ML 3 ML PEN SC ONE (08:30)
[2017-07-26] MEDS: INSULIN ASPART 100 UNITS/ML 3 ML PEN SC SCH ×4 (08:32→21:10)
[2017-07-26] MEDS: LACTOBACILLUS ACIDOPHILUS (FLORANEX) TAB PO SCH ×3 (08:48→18:00)
[2017-07-26] MEDS: OXYBUTYNIN CHLORIDE 5 MG TAB PO SCH ×2 (08:48→21:14)
[2017-07-26] MEDS: ASPIRIN 81 MG ECTAB PO SCH (08:49)
[2017-07-26] MEDS: MAGNESIUM OXIDE 400 MG TAB PO SCH ×2 (08:49→21:03)
[2017-07-26] MEDS: SPIRONOLACTONE 25 MG TAB PO SCH ×2 (08:49→18:00)
[2017-07-26] MEDS: LISINOPRIL 2.5 MG TAB PO SCH (08:49)
[2017-07-26] MEDS: CLOPIDOGREL BISULFATE 75 MG TAB PO SCH (08:49)
[2017-07-26] MEDS: CARVEDILOL 6.25 MG TAB PO SCH ×2 (08:50→21:02)
[2017-07-26] MEDS: VENLAFAXINE HCL XR 75 MG CAPXR PO SCH (08:50)
[2017-07-26] MEDS: PREGABALIN 150 MG CAP PO SCH ×2 (08:52→21:04)
[2017-07-26 10:40] LABS: CALCIUM 8.6 mg/dl (8.5-10.1); CREATININE 0.84 mg/dl (0.60-1.20)
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
[2017-07-26 15:09] VITALS: BP 114/75; PULSE 84; TEMP 37.3; O2SAT 92
--- NOTE | 2017-07-26 15:19 | Progress Note ---
Subjective Date of Service: July 26, 2017. Subjective tolerating abx, afebrile. blood cultures negative, no wound culture.no am labs Problem List Medical Problems: (1) ACS (acute coronary syndrome) Status: Acute (2) Acute gastroenteritis Status: Acute (3) Acute head injury Status: Acute (4) Acute hypernatremia Status: Acute (5) Acute kidney injury Status: Acute (6) Avulsion injury of left knee region Status: Acute (7) Cellulitis Status: Acute (8) Cellulitis of right leg Status: Acute (9) CHF (congestive heart failure) Status: Acute (10) CHF exacerbation Status: Acute (11) Contusion of right hip Status: Acute (12) Contusion of right shoulder Status: Acute (13) COPD (chronic obstructive pulmonary disease) Status: Acute (14) COPD exacerbation Status: Acute (15) DKA (diabetic ketoacidoses) Status: Acute (16) Elevated troponin Status: Acute (17) Fall Status: Acute (18) Hyperkalemia Status: Acute (19) Hyperkalemia Status: Acute (20) Hypoglycemia Status: Acute (21) Hypothermia Status: Acute (22) Hypoxia Status: Acute (23) Influenza Status: Acute (24) Osteomyelitis Status: Acute (25) Pneumonia Status: Acute (26) Troponin level elevated Status: Acute (27) Vomiting Status: Acute (28) Weakness Status: Acute Objective Vital Signs Date Time Temp Pulse Resp B/P (MAP) Pulse Ox O2 Delivery O2 Flow Rate FiO2 07/26/17 15:09 37.3 84 18 114/75 (88) 92 Room Air 07/26/17 08:00 Room Air 07/26/17 07:22 36.9 73 19 103/68 (80) 96 Room Air 07/26/17 00:10 Room Air 07/25/17 23:09 36.6 88 20 116/67 (83) 95 Room Air 07/25/17 21:05 76 113/68 (83) 07/25/17 16:00 93 Room Air Laboratory Results Last 24 Hours Test 07/25/17 16:23 07/25/17 20:15 07/26/17 06:00 07/26/17 07:41 Bedside Glucose 138 mg/dl 173 mg/dl 191 mg/dl Total Creatine Kinase 39 U/L Test 07/26/17 10:01 07/26/17 10:43 07/26/17 11:42 Sodium Level 134 mmol/L Potassium Level mmol/L 4.9 mmol/L Chloride Level 103 mmol/L Carbon Dioxide Level 26 mmol/L Anion Gap 5.0 mmol/L Blood Urea Nitrogen 15 mg/dl Creatinine 0.84 mg/dl Est Creatinine Clear Calc Drug Dose 83.1 ml/min Estimated GFR () 85.1 Estimated GFR (Non- 73.4 BUN/Creatinine Ratio 18.4 Random Glucose 201 mg/dl Calcium Level 8.6 mg/dl Bedside Glucose 196 mg/dl Assessment and Plan (1) Diabetic foot ulcer Assessment & Plan: will stop cefepime, continue dapto for now, upon d/c can change to po doxy 100mg po bid x 28 days. continue local wound care.
--- NOTE | 2017-07-26 15:40 | Pharmacy Progress Note ---
Pharmacy Glycemic Short Note 2 Date of Service July 26, 2017. OUTPATIENT ANTIDIABETIC REGIMEN: * Toujeo 68 units SQ HS (recently decreased from 80 units) + humalog 20 units with meals * A1c = 8.6% on 07/20/17, 9.6% in April 2017 ASSESSMENT: * 66yo T2DM female POD #4 s/p L toe I&D with poor outpatient control per recent A1c. See previous notes for background info, in short: * Patient continues to require significantly less insulin compared to outpatient doses. * BSGs well controlled over the past several days but did become elevated today for unknown reason * Fasting BSG of 191 mg/dL is above goal (has been trending upward; 1287, 152, 191). * Will slightly tighten CR/CR due to lunch BSG > 180 mg/dL PLAN FOR INPATIENT GLYCEMIC CONTROL: * Basal insulin - increase * Extra 5 units of Lantus given this morning * Lantus 10-15 units SQ HS (10 units for BSG less than 180 mg/dL, 15 units for BSG 180 mg/dL or more) * Consider change to 15 units SQ HS tomorrow * Bolus insulin - tighten * NovoLog per scale ACHS or Q6hrs while NPO * Goal Range: Low 120 mg/dL - High 150 mg/dL * Correction Factor: 20 mg/dL/unit * Nutritional / Prandial insulin per carb ratio of 1 unit per 7 grams CHO consumed DISCHARGE RECOMMENDATIONS: Assessment * Patient's outpatient regimen is likely too aggressive as evidenced by the following: * BSG 27 mg/dL prior to arrival on admission * Recent decrease in A1c * Insulin requirements significantly reduced as inpatient as compared to outpatient regimen with good control of BSG's Recommendation * Patient's Toujeo and Humalog should likely be reduced on discharge * Recommend estimation of dose of each based on most recent doses of Lantus and Novolog as inpatient (possibly slightly less aggressive 2nd high risk for hypoglycemia) * Close follow-up soon after discharge with provider who manages outpatient insulin Thank you.
[2017-07-26 16:00] VITALS: O2SAT 93
[2017-07-26] MEDS: DAPTOmycin IV 400 MG in SYRINGE 0 ML IV SCH (18:38)
[2017-07-26 21:00] VITALS: BP 115/75; PULSE 74
[2017-07-26] MEDS: TRAZODONE HCL 50 MG TAB PO SCH (21:03)
[2017-07-26] MEDS: PRAMIPEXOLE DIHYDROCHLORIDE 0.25MG TAB PO SCH (21:03)
[2017-07-26] MEDS: VENLAFAXINE HCL XR 150 MG CAPXR PO SCH (21:03)
[2017-07-26] MEDS: MIRTAZAPINE TAB 15 MG TAB PO SCH (21:04)
[2017-07-26] MEDS: INSULIN GLARGINE SOLOSTAR 100 UNITS/ML 3 ML PEN SC SCH (21:11)
[2017-07-27 00:08] VITALS: BP 119/61; PULSE 76; TEMP 37; O2SAT 95
[2017-07-27] MEDS: TRAMADOL HCL 50 MG TAB PO PRN (05:53)
[2017-07-27] MEDS: HEPARIN SOD 5000 UNIT/0.5 ML CARP SQ SCH ×3 (05:54→21:15)
[2017-07-27] MEDS: LEVOTHYROXINE 150 MCG TAB PO SCH (05:59)
[2017-07-27 07:14] VITALS: BP 104/62; PULSE 73; TEMP 36.9; O2SAT 93
[2017-07-27] MEDS: MAGNESIUM OXIDE 400 MG TAB PO SCH ×2 (07:48→21:03)
[2017-07-27] MEDS: LACTOBACILLUS ACIDOPHILUS (FLORANEX) TAB PO SCH ×3 (07:48→17:23)
[2017-07-27] MEDS: OXYBUTYNIN CHLORIDE 5 MG TAB PO SCH ×2 (07:48→21:00)
[2017-07-27] MEDS: VENLAFAXINE HCL XR 75 MG CAPXR PO SCH (07:49)
[2017-07-27] MEDS: CLOPIDOGREL BISULFATE 75 MG TAB PO SCH (07:49)
[2017-07-27] MEDS: ASPIRIN 81 MG ECTAB PO SCH (07:49)
[2017-07-27] MEDS: LISINOPRIL 2.5 MG TAB PO SCH (07:49)
[2017-07-27] MEDS: CARVEDILOL 6.25 MG TAB PO SCH ×2 (07:49→21:07)
[2017-07-27] MEDS: SPIRONOLACTONE 25 MG TAB PO SCH ×2 (07:49→17:23)
[2017-07-27] MEDS: PREGABALIN 150 MG CAP PO SCH ×2 (07:51→21:00)
[2017-07-27] MEDS: POLYETHYLENE (MIRALAX) 17 GM PACK PO PRN (07:51)
[2017-07-27] MEDS: INSULIN ASPART 100 UNITS/ML 3 ML PEN SC SCH ×4 (08:56→21:14)
--- NOTE | 2017-07-27 14:30 | Pharmacy Progress Note ---
Pharmacy Glycemic Short Note 2 Date of Service July 27, 2017. OUTPATIENT ANTIDIABETIC REGIMEN: * Toujeo 68 units SC HS (recently decreased from 80 units) + humalog 20 units with meals * A1c = 8.6% on 07/20/17, 9.6% in April 2017 ASSESSMENT: * 66yo T2DM female POD #5 s/p L toe I&D with poor outpatient control per recent A1c. See previous notes for background info * Patient continues to require significantly less insulin compared to outpatient doses. * BSG much improved today with tightened Novolog scale and higher dose of Lantus given yesterday. She received 49 units of insulin yesterday. Fasting BSG at goal today, therefore will schedule 15 units of Lantus for tonight. PLAN FOR INPATIENT GLYCEMIC CONTROL: * Basal insulin - increase * Change Lantus to 15 units SC HS today * Bolus insulin - no change * NovoLog per scale ACHS or Q6hrs while NPO * Goal Range: Low 110 mg/dL - High 140 mg/dL * Correction Factor: 20 mg/dL/unit * Nutritional / Prandial insulin per carb ratio of 1 unit per 7 grams CHO consumed DISCHARGE RECOMMENDATIONS: Assessment * Patient's outpatient regimen is likely too aggressive as evidenced by the following: * BSG 27 mg/dL prior to arrival on admission * Recent decrease in A1c * Insulin requirements significantly reduced as inpatient as compared to outpatient regimen with good control of BSG's Recommendation * Patient's Toujeo and Humalog should likely be reduced on discharge * Recommend estimation of dose of each based on most recent doses of Lantus and Novolog as inpatient (possibly slightly less aggressive 2nd high risk for hypoglycemia) * Close follow-up soon after discharge with provider who manages outpatient insulin Thank you.
[2017-07-27] MEDS ORDERED: POLYETHYLENE (MIRALAX) 17 GM PACK PO ONE (14:56)
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
[2017-07-27 16:00] VITALS: O2SAT 93
[2017-07-27 16:10] VITALS: BP 112/68; PULSE 70; TEMP 36.7; O2SAT 94
[2017-07-27] MEDS: DAPTOmycin IV 400 MG in SYRINGE 0 ML IV SCH (17:24)
[2017-07-27] MEDS: VENLAFAXINE HCL XR 150 MG CAPXR PO SCH (21:00)
[2017-07-27] MEDS: PRAMIPEXOLE DIHYDROCHLORIDE 0.25MG TAB PO SCH (21:02)
[2017-07-27] MEDS: TRAZODONE HCL 50 MG TAB PO SCH (21:03)
[2017-07-27] MEDS: MIRTAZAPINE TAB 15 MG TAB PO SCH (21:05)
[2017-07-27] MEDS ORDERED: INSULIN GLARGINE SOLOSTAR 100 UNITS/ML 3 ML PEN SC SCH (22:00)
[2017-07-27 23:57] VITALS: BP 120/73; PULSE 80; TEMP 36.7; O2SAT 97
[2017-07-28] MEDS: HEPARIN SOD 5000 UNIT/0.5 ML CARP SQ SCH ×2 (06:00→13:49)
[2017-07-28] MEDS: LEVOTHYROXINE 150 MCG TAB PO SCH (06:03)
[2017-07-28 07:05] VITALS: BP 94/59; PULSE 71; TEMP 36.6; O2SAT 100
[2017-07-28] MEDS: LISINOPRIL 2.5 MG TAB PO SCH (08:26)
[2017-07-28] MEDS: SPIRONOLACTONE 25 MG TAB PO SCH (08:27)
[2017-07-28] MEDS: LACTOBACILLUS ACIDOPHILUS (FLORANEX) TAB PO SCH ×2 (08:27→12:20)
[2017-07-28] MEDS: ASPIRIN 81 MG ECTAB PO SCH (08:27)
[2017-07-28] MEDS: OXYBUTYNIN CHLORIDE 5 MG TAB PO SCH (08:27)
[2017-07-28] MEDS: MAGNESIUM OXIDE 400 MG TAB PO SCH (08:28)
[2017-07-28] MEDS: CARVEDILOL 6.25 MG TAB PO SCH (08:28)
[2017-07-28] MEDS: VENLAFAXINE HCL XR 75 MG CAPXR PO SCH (08:28)
[2017-07-28] MEDS: CLOPIDOGREL BISULFATE 75 MG TAB PO SCH (08:28)
[2017-07-28] MEDS: PREGABALIN 150 MG CAP PO SCH (08:30)
[2017-07-28] MEDS: INSULIN ASPART 100 UNITS/ML 3 ML PEN SC SCH ×2 (08:36→13:48)
[2017-07-28] MEDS ORDERED: TRAM-10 PO (09:50)
[2017-07-28] MEDS ORDERED: INSDGIPEN SC (09:50)
[2017-07-28] MEDS ORDERED: DXY100 PO (09:50)
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
[2017-07-28 10:56] VITALS: BP 94/59; PULSE 71; TEMP 36.6; O2SAT 100
== END 2017-07-28 14:26 | DRG 617 ==
LOC: EDBD 11:34 → C.EDC 11:39 → C.MS4W 14:57 → ENRESERV 15:21
PROVIDERS: ADMIT Internal Medicine; ATTEND Internal Medicine
PROC: 0Y6Y0Z0 Detachment at Left 5th Toe, Complete, Open Approach (ICD-10-PCS; principal; 2017-07-22 07:30)
PROC: 0LNV0ZZ Release Right Foot Tendon, Open Approach (ICD-10-PCS; principal; 2017-07-22 07:30)
PROC: 0JBQ0ZZ Excision of Right Foot Subcutaneous Tissue and Fascia, Open Approach (ICD-10-PCS; principal; 2017-07-22 07:30)
DX: E11.621 Type 2 diabetes mellitus with foot ulcer (principal); E11.52 Type 2 diabetes mellitus with diabetic peripheral angiopathy with gangrene; I96 Gangrene, not elsewhere classified; I13.0 Hypertensive heart and chronic kidney disease with heart failure and stage 1 through stage 4 chronic kidney disease, or unspecified chronic kidney disease; I50.22 Chronic systolic (congestive) heart failure; E87.1 Hypo-osmolality and hyponatremia; E11.69 Type 2 diabetes mellitus with other specified complication; M86.9 Osteomyelitis, unspecified; L97.529 Non-pressure chronic ulcer of other part of left foot with unspecified severity; L97.519 Non-pressure chronic ulcer of other part of right foot with unspecified severity; E11.649 Type 2 diabetes mellitus with hypoglycemia without coma; M20.5X1 Other deformities of toe(s) (acquired), right foot; N17.9 Acute kidney failure, unspecified; E11.22 Type 2 diabetes mellitus with diabetic chronic kidney disease; N18.2 Chronic kidney disease, stage 2 (mild); R68.0 Hypothermia, not associated with low environmental temperature; L03.032 Cellulitis of left toe; E78.5 Hyperlipidemia, unspecified; E11.40 Type 2 diabetes mellitus with diabetic neuropathy, unspecified; E11.319 Type 2 diabetes mellitus with unspecified diabetic retinopathy without macular edema; I25.10 Atherosclerotic heart disease of native coronary artery without angina pectoris; I25.5 Ischemic cardiomyopathy; E03.9 Hypothyroidism, unspecified; K21.9 Gastro-esophageal reflux disease without esophagitis; G47.33 Obstructive sleep apnea (adult) (pediatric); F32.9 Major depressive disorder, single episode, unspecified; E66.01 Morbid (severe) obesity due to excess calories; J44.9 Chronic obstructive pulmonary disease, unspecified; M54.9 Dorsalgia, unspecified; G89.21 Chronic pain due to trauma; Z68.37 Body mass index [BMI] 37.0-37.9, adult; Z79.02 Long term (current) use of antithrombotics/antiplatelets; Z79.4 Long term (current) use of insulin; Z79.82 Long term (current) use of aspirin; Z79.899 Other long term (current) drug therapy; Z91.19 Patient's noncompliance with other medical treatment and regimen; Z91.81 History of falling; Z95.1 Presence of aortocoronary bypass graft; Z88.0 Allergy status to penicillin; Z88.1 Allergy status to other antibiotic agents; Z88.2 Allergy status to sulfonamides; Z88.8 Allergy status to other drugs, medicaments and biological substances; Z91.012 Allergy to eggs; Z91.040 Latex allergy status

== ENCOUNTER 2018-03-11 17:48 | Inpatient (IN) ==
[2018-03-11] MEDS ORDERED: SODIUM CHLORIDE 0.9% 500 ML IV STA (18:17)
--- NOTE | 2018-03-11 18:24 | Emergency Department Note ---
Entered by Saritha Maddox acting as a scribe for Andrew Cheek MD History of Present Illness General Chief complaint: Shortness of Breath/Dyspnea Stated complaint: SOB,CAN'T SLEEP,GETTING WORSE Time Seen by Provider: 03/11/18 17:53 Source: patient Mode of arrival: wheelchair History of Present Illness Onset (ago): day(s) 6 Location: chest (lungs) Pain Consistency: + other (increased) Maximum Pain Intensity: 8 Quality: + other (shortness of breath) Exacerbated By: + other (laying down) Associated symptoms: + cough; no nausea/vomiting The patient is a 67 year old female who presents to the Emergency Room with complaints of increased shortness of breath that started 6 days ago. The patient rates her discomfort an 8/10 in severity. Her shortness of breath worsens when she is laying down. She also complains of a cough. She denies any vomiting. She notes she does not normally wear oxygen at home. The patient was seen in the ED yesterday with similar symptoms, no emergent findings were noted/ found. The sister notes she has gotten worse since being discharged. She states the patient is not sleeping. The patient was at [facility] for conditioning to increase her strength after being discharged from the hospital on 02/22 with renal failure, hyperkalemia, and change in mental status. She was discharged from [facility] 6 days ago and has been short of breath since she left. The patient is staying with her daughter because she is unable to stay in her at her house due to heating issues. Home Medications Home Medications Medication Instructions Recorded Confirmed Type albuterol sulfate 2 puff INHALATION QID PRN 02/18/18 03/11/18 History aspirin [Aspir-81] 81 mg PO DAILY 02/18/18 03/11/18 History carvedilol 6.25 mg PO BID 02/18/18 03/11/18 History clopidogrel 75 mg PO DAILY 02/18/18 03/11/18 History dulaglutide 0.75 mg SUBCUT WK 02/18/18 03/11/18 History econazole 1 applic TOPICAL UD PRN 02/18/18 03/11/18 History ergocalciferol (vitamin D2) 50,000 unit PO WK 02/18/18 03/11/18 History fluticasone-vilanterol 1 puff INHALATION DAILY 02/18/18 03/11/18 History levothyroxine 150 mcg PO DAILY 02/18/18 03/11/18 History magnesium oxide 400 mg PO BID 02/18/18 03/11/18 History metformin 1,000 mg PO DAILY 02/18/18 03/11/18 History mirtazapine 30 mg PO HS 02/18/18 03/11/18 History nvmumxordxca-bkwmgjdd-lfkaxn 1 tab PO DAILY 02/18/18 03/11/18 History [Multivitamin 50 Plus] pramipexole 0.75 mg PO HS 02/18/18 03/11/18 History pregabalin [Lyrica] 150 mg PO QAM 02/18/18 03/11/18 History pregabalin [Lyrica] 300 mg PO HS 02/18/18 03/11/18 History saxagliptin 5 mg PO DAILY 02/18/18 03/11/18 History venlafaxine 150 mg PO DAILY 02/18/18 03/11/18 History hydrochlorothiazide 25 mg PO BID 30 Days #60 tab 02/22/18 03/11/18 Rx oxybutynin chloride 5 mg tablet 5 mg PO BID tab 03/01/18 03/11/18 History tramadol 50 mg tablet 50 mg PO Q8H PRN tab 03/01/18 03/11/18 History spironolactone 50 mg PO DAILY 03/10/18 03/11/18 History Allergies Allergy/AdvReac Type Severity Reaction Status Date / Time clindamycin Allergy Severe RASH, Verified 03/11/18 18:13 DELUSIONAL, CONVULSIONS Egg Derived Allergy Severe ANAPHYLAXIS Verified 03/11/18 18:13 furosemide Allergy Severe ANAPHYLAXIS Verified 03/11/18 18:13 rosuvastatin Allergy Severe LEG Unverified 03/11/18 18:13 WEAKNESS simvastatin Allergy Severe LEG Unverified 03/11/18 18:13 WEAKNESS Bactrim Allergy Intermediate RASH Verified 04/13/17 16:00 sulfamethoxazole Allergy Intermediate RASH Verified 03/11/18 18:13 trimethoprim Allergy Intermediate RASH Verified 03/11/18 18:13 amoxicillin Allergy Unknown . Verified 03/11/18 18:13 atorvastatin Allergy Unknown acute Verified 03/11/18 18:13 renal failure clavulanic acid Allergy Unknown . Verified 03/11/18 18:13 egg Allergy Unknown _ Verified 12/15/18 18:13 latex Allergy Unknown RASH Verified 03/11/18 18:13 Penicillins Allergy Unknown unknown Verified 03/11/18 18:13 triamcinolone Allergy Unknown RASH Verified 03/11/18 18:13 nickel Allergy Redness of Verified 03/11/18 18:13 Skin capsaicin AdvReac Severe SKIN Verified 03/11/18 18:13 SLOTHED FROM HEEL diclofenac AdvReac Severe SKIN Verified 03/11/18 18:13 SLOTHED FROM HEEL Diclopak AdvReac Severe SKIN Verified 04/13/17 16:00 SLOTHED FROM HEEL isopropyl alcohol AdvReac Severe SKIN Verified 03/11/18 18:13 SLOTHED FROM HEEL propylene glycol AdvReac Severe SKIN Verified 03/11/18 18:13 SLOTHED FROM HEEL acetaminophen AdvReac Mild VOMITING Verified 03/11/18 18:13 Past Med/Surg History Social History Current Living Situation: Alone Feels Safe at Home: Yes Smoking Status: Former smoker Second Hand Exposure: No Hx Alcohol Use: Yes (quit drinking in 1987) Hx Substance Use: No Beliefs That Will Affect Care: None Preferred Language: Thai Review of Systems See HPI for pertinent positives & negatives. and A total of 10 systems reviewed and were otherwise negative Physical Exam Vital Signs Vital Signs - 24 hr 03/11/18 17:51 03/11/18 18:02 03/11/18 19:53 Temperature 36.7 C Temperature Source Oral Sepsis Recent Fever Within 48 Hours No Sepsis New/Unexplained Change in Mental Status No Sepsis Action Taken by Nursing No Action Required Pulse Rate 115 H Pulse Rate [Left Finger] 115 H Respiratory Rate 24 24 Respiratory Effort / Characteristics Spontaneous Non-Labored Respiratory Depth Normal Respiratory Pattern Regular Blood Pressure 144/84 H Blood Pressure [Right Arm] 156/102 H Blood Pressure Mean 104 Blood Pressure Mean [Right Arm] 120 Blood Pressure Position Sitting Pulse Oximetry 98 98 Oxygen Delivery Method Room Air Room Air Room Air GENERAL: Patient is in no acute distress. HEENT: No acute trauma, normocephalic atraumatic, mucous membranes dry, no nasal congestion, no scleral icterus. NECK: No stridor, no adenopathy, no meningismus, trachea is midline. LUNGS: Clear to auscultation bilaterally, no wheeze, no rhonchi, breath sounds equal. HEART: Tachycardic with a regular rhythm, no murmurs. ABDOMEN: Soft, tender near her right upper quadrant, bowel sounds positive, no hernias, no peritonitis. EXTREMITIES: No cyanosis or edema, full range of motion of all the joints without pain or difficulty, no signs for acute trauma. NEUROLOGIC: Oriented x 3, no acute motor or sensory deficits, no focal weakness. SKIN: No rash, no jaundice, no diaphoresis. Course 1754: Past medical records reviewed. The patient was evaluated in room A11B, and a complete history and physical examination were performed. 1899: I updated the patient on current results and treatment plan at this time. 2031: [facility] will evaluate the patient for further management and care. Consultations Consultation #1: I discussed the patient's case with Dr. Gee [facility]. He will evaluate the patient for further management and care. Time: 20:32 Administered Medications Discontinued Medications Carvedilol (Coreg) 6.25 mg PO NOW STA Stop: 03/11/18 20:24 Last Admin: 03/11/18 20:41 Dose: 6.25 mg Sodium Chloride (Nss) 500 mls @ 999 mls/hr IV .Q31M STA Stop: 03/11/18 18:47 Last Infusion: 03/11/18 19:20 Dose: 0 mls/hr Admin: 03/11/18 18:47 Dose: 999 mls/hr Magnesium Sulfate/Dextrose (Magnesium Sulfate / D5w) 1 gm in 100 mls @ 100 mls/ hr IV ONE ONE Stop: 03/11/18 19:56 Last Infusion: 03/11/18 20:55 Dose: 0 mls/hr Admin: 03/11/18 19:53 Dose: 100 mls/hr Medical Decision Making Differential Diagnosis Differential includes: dehydration, exacerbation of COPD, bronchitis or pneumonia, CHF, PE, NM, debilitation, anemia, electrolyte imbalance, renal failure, UTI. Medical Records Attestation: I reviewed the patient's medical records. Home Medications Current Medication List: was personally reviewed by me Laboratory Data Attestation: I reviewed the patient's lab results. Result diagrams: 03/11/18 18:25 03/11/18 18:25 Lab Results 12/15/18 12/15/18 12/15/18 Range/Units 18:25 18:25 18:25 WBC 7.06 (4.8-10.8) K/uL RBC 4.56 (4.2-5.4) M/uL Hgb 12.7 (12.0-16.0) g/dL Hct 39.5 (37-47) % MCV 86.6 (80-100) fL MCH 27.9 (25-34) pg MCHC 32.2 (32-36) g/dL RDW Std Deviation 47.9 H (36.4-46.3) fL RDW Coeff of [place] 15.1 H (11.5-14.5) % Plt Count 228 (130-400) K/uL MPV 12.3 H (7.4-10.4) fL Immature Gran % (Auto) 0.1 % Neut % (Auto) 64.0 % Lymph % (Auto) 25.5 % [place] % (Auto) 9.2 % Eos % (Auto) 0.6 % Baso % (Auto) 0.6 % Immature Gran # (Auto) 0.01 (0.00-0.02) K/uL Neut # (Auto) 4.52 (1.4-6.5) K/uL Lymph # (Auto) 1.80 (1.2-3.4) K/uL [place] # (Auto) 0.65 H (0.11-0.59) K/uL Eos # (Auto) 0.04 (0-0.5) K/uL Baso # (Auto) 0.04 (0-0.2) K/uL PT 14.8 H (9.0-12.0) Seconds INR 1.5 H (0.9-1.1) APTT 27.2 (21.0-31.0) Seconds PTT Ratio 1.0 Sodium 141 (136-145) mmol/L Potassium 3.7 (3.5-5.1) mmol/L Chloride 105 (98-107) mmol/L Carbon Dioxide 26 (21-32) mmol/L Anion Gap 10.0 (3-11) BUN 19 H (7-18) mg/dl Creatinine 1.15 (0.6-1.2) mg/dl Est Cr Clr Drug Dosing 59.5 ml/min Est GFR ( Amer) 57.8 Est GFR (Non-Af Amer) 49.9 BUN/Creatinine Ratio 16.1 (10-20) Glucose 290 H (70-99) mg/dl Lactate (0.4-2.0) mmol/L Calcium 8.9 (8.5-10.1) mg/dl Magnesium 1.4 L (1.8-2.4) mg/dl Total Bilirubin 0.8 (0.1-1) mg/dl AST 28 (15-37) U/L ALT 33 (12-78) U/L Alkaline Phosphatase 99 (45-117) U/L Troponin I 0.054 H* (0-0.045) ng/ml Total Protein 6.8 (6.4-8.2) gm/dl Albumin 3.4 (3.4-5.0) gm/dl Globulin 3.4 (2.5-4.0) gm/dl Albumin/Globulin Ratio 1.0 (0.9-2) TSH (0.300-4.500) uIu/ml Free T4 (0.8-1.6) ng/dl 03/11/18 03/11/18 Range/Units 18:25 19:06 WBC (4.8-10.8) K/uL RBC (4.2-5.4) M/uL Hgb (12.0-16.0) g/dL Hct (37-47) % MCV (80-100) fL MCH (25-34) pg MCHC (32-36) g/dL RDW Std Deviation (36.4-46.3) fL RDW Coeff of [place]rell (11.5-14.5) % Plt Count (130-400) K/uL MPV (7.4-10.4) fL Immature Gran % (Auto) % Neut % (Auto) % Lymph % (Auto) % [place] % (Auto) % Eos % (Auto) % Baso % (Auto) % Immature Gran # (Auto) (0.00-0.02) K/uL Neut # (Auto) (1.4-6.5) K/uL Lymph # (Auto) (1.2-3.4) K/uL [place] # (Auto) (0.11-0.59) K/uL Eos # (Auto) (0-0.5) K/uL Baso # (Auto) (0-0.2) K/uL PT (9.0-12.0) Seconds INR (0.9-1.1) APTT (21.0-31.0) Seconds PTT Ratio Sodium (136-145) mmol/L Potassium (3.5-5.1) mmol/L Chloride (98-107) mmol/L Carbon Dioxide (21-32) mmol/L Anion Gap (3-11) BUN (7-18) mg/dl Creatinine (0.6-1.2) mg/dl Est Cr Clr Drug Dosing ml/min Est GFR ( Amer) Est GFR (Non-Af Amer) BUN/Creatinine Ratio (10-20) Glucose (70-99) mg/dl Lactate 1.8 (0.4-2.0) mmol/L Calcium (8.5-10.1) mg/dl Magnesium (1.8-2.4) mg/dl Total Bilirubin (0.1-1) mg/dl AST (15-37) U/L ALT (12-78) U/L Alkaline Phosphatase (45-117) U/L Troponin I (0-0.045) ng/ml Total Protein (6.4-8.2) gm/dl Albumin (3.4-5.0) gm/dl Globulin (2.5-4.0) gm/dl Albumin/Globulin Ratio (0.9-2) TSH 2.750 (0.300-4.500) uIu/ml Free T4 1.35 (0.8-1.6) ng/dl Imaging Data Radiologist's Impression: Radiology results as stated below per my review and the radiologist's interpretation: XR chest 1V portable HISTORY: 67 years-old Female sob acute shortness of breath COMPARISON: Chest radiograph 03/10/2018 TECHNIQUE: Portable AP view of the chest FINDINGS: Cardiac silhouette is enlarged, unchanged. Prior median sternotomy. Single lead left subclavian pacer is unchanged. Pulmonary vascular congestion with unchanged mild right hemidiaphragmatic elevation. Subsegmental right basilar opacities with suggested trace effusions. No pneumothorax. Degenerative changes of the shoulders and spine. Postoperative changes of the right humerus. IMPRESSION: 1. Cardiomegaly with pulmonary vascular congestion. 2. Subsegmental right basilar opacities suggest atelectasis or pneumonitis. 3. Chronic mild right hemidiaphragmatic elevation. The above report was generated using voice recognition software. It may contain grammatical, syntax or spelling errors. Electronically signed by: Wander Paula M.D. 03/11/2018 6:32 PM ABDOMEN AND PELVIS CT WITH IV CONTRAST CT DOSE: 2372.43 mGy.cm HISTORY: Acute right-sided upper and lower quadrant abdominal pain right sided abd pain TECHNIQUE: Multiaxial CT images of the abdomen and pelvis were performed following the use of intravenous contrast. A dose lowering technique was utilized adhering to the principles of ALARA. COMPARISON STUDY: CTA chest of same day, CT abdomen and pelvis 06/22/2017 FINDINGS: Moderate right and mild left pleural effusions with bibasilar opacities. Cardiomegaly. Prior median sternotomy. No pneumatosis or pneumoperitoneum. Heterogeneous appearance of the liver. Indeterminate ill-defined area of slightly increased attenuation of the posterior right hepatic lobe extending to the liver capsule, 2.4 x 1.3 cm. Mild periportal edema. Mixing artifact noted within the portal vein and IVC. No intrahepatic biliary ductal dilation. Gallbladder is unremarkable. The spleen, pancreas and right adrenal gland are unremarkable. Mild thickening of the left adrenal gland. Cortical lobulations of the bilateral kidneys with multifocal left greater then right cortical scarring. No renal calculi or hydronephrosis. Ureters are unremarkable. Mild wall thickening of the bladder with perivesicular stranding. Prior hysterectomy. Ovoid soft tissue attenuating mass of the left hemipelvis is again seen, 5.2 x 3.4 cm, previously measuring opacified 0.1 x 3.0 cm on study from 06/22/2017. Extensive calcification of the abdominal aorta without aneurysm. Mildly enlarged right iliac chain lymph node measures 1.0 cm, nonspecific. No bowel obstruction. Mild circumferential wall thickening of the rectum with mild perirectal stranding. Colonic diverticulosis without acute diverticulitis. The appendix is not diagnostically visualized. No secondary signs to suggest acute appendicitis. Moderate generalized body wall mesenteric edema with trace abdominopelvic ascites. Degenerative changes of the spine. Multilevel intervertebral disc space narrowing with spondylitic spurring and facet arthropathy. Possible lipoma of the space anterior abdominal wall, 3.5 cm. IMPRESSION: 1. Fluid overload manifested by bilateral pleural effusions with moderate body wall edema and trace abdominal pelvic ascites. 2. Heterogeneous appearance of the liver. 3. Mild circumferential wall thickening of the rectum with perirectal stranding. Correlate clinically to exclude proctitis. 4. No bowel obstruction. 5. Colonic diverticulosis without acute diverticulitis. 6. Ovoid soft tissue attenuating mass of the left hemipelvis is again seen, stable to slightly increase in size from comparison. 7. Circumferential wall thickening of the bladder. Correlate with urinalysis to exclude cystitis. 8. Additional findings as above. Electronically signed by: Wander Paula M.D. 03/11/2018 8:[address] angio chest PE protocol HISTORY: 67 years-old Female with PE. Acute shortness of breath TECHNIQUE: Multiple CTA images of the chest were obtained after the intravenous administration of 94 ml Optiray 320. Coronal and sagittal MIPS were obtained from the axial data set and were submitted for review. All measurements were obtained according to NASCET criteria. A dose lowering technique was utilized adhering to the principles of ALARA. COMPARISON: CT abdomen and pelvis of same day, CTA chest 03/24/2017 FINDINGS: CTA: Moderate multichamber cardiac enlargement. Left heart structures are not opacified. Left subclavian pacer is noted with lead overlying right ventricle. Coronary arterial calcifications are noted. Prior median sternotomy with CABG. No thoracic aortic aneurysm identified. Moderate calcified plaque of the thoracic aorta. Reflux of contrast into the IVC and hepatic veins. The segmental and subsegmental pulmonary arterial branches are not well opacified secondary to contrast bolus timing. No central pulmonary embolus identified. Study is also mildly limited secondary to respiratory motion artifact. CT CHEST: No dominant thyroid nodule. Prominent AP window and paratracheal lymph nodes are seen measuring up to 7-8 mm. Indeterminate 10 mm subcarinal lymph node. Small left and moderate right pleural effusions. No pneumothorax. Mild thickening of the bronchovascular bundles. Subsegmental bibasilar opacities, right greater than left favor atelectasis. Indeterminate 1.2 x 0.9 x 1.3 cm groundglass opacity of the left upper lobe, image 29 series 5. Mild bilateral intralobular septal thickening. Central airways appear patent. Please see separately dictated CT abdomen and pelvis study of same day for evaluation of the abdominal structures. Mild generalized body wall edema. Bones appear intact. Multilevel degenerative changes of the spine. Degenerative changes of the shoulders with postoperative changes of the right humeral head. IMPRESSION: 1. Cardiomegaly with mild pulmonary edema, small left and moderate right pleural effusions. 2. Subsegmental right greater than left bibasilar opacities suggest atelectasis. 3. Limited evaluation of the pulmonary arterial tree as above. No central pulmonary embolus identified. 4. Indeterminate 1.2 x 0.9 x 1.3 cm groundglass opacity of the left upper lobe. Three-month follow-up CT of the chest recommended to exclude a low-grade bronchogenic neoplasm. 5. Nonspecific mild mediastinal adenopathy. 6. Prior median sternotomy and CABG. The above report was generated using voice recognition software. It may contain grammatical, syntax or spelling errors. Electronically signed by: Wander Paula M.D. 03/11/2018 8:06 PM ECG Data Attestation: I personally reviewed and interpreted this ECG as follows: Indication: SOB/dyspnea Rate (beats per minute): 108 Rhythm: sinus tachycardia Findings: + other (old anterior infarct) and + 1st degree AV block; no PVC and no ST elevation Comparison ECG Date: from (03/10/18) Change: the following changes noted (rate has increased) Blood Pressure Blood Pressure Findings: Elevated blood pressure Blood Pressure Disposition: further management by hospitalist [facility] Narrative There was no leukocytosis or concerning anemia. No kidney failure. Magnesium was low at 1.4. INR slightly elevated at 1.5. EKG shows a sinus tachycardia, no acute ischemia. Cardiac enzyme testing x1 does show a very slight troponin elevation, this could be consistent with cardiac strain or injury. Lactic acid level was not elevated making sepsis less likely. There was no hepatitis. The patient appeared to be in a euthyroid state. Chest film showed some potential atelectasis and some cardiomegaly, no obvious infiltrate by my reading. Chest CT does show bilateral pleural effusions worse on the right. Some atelectasis was seen. No PE noted. Abdominal CT shows some more chronic than acute findings, no findings suggesting an acute surgical process within the abdomen or pelvis. Urinalysis result is pending. Blood cultures are pending. The patient was given her typical dose of oral Coreg. I suspect she did not take this medication yet this evening. She received IV magnesium for the lower magnesium value. She received IV saline, 500 cc. Patient presents with ongoing dyspnea. She does have bilateral pleural effusions, she has a low magnesium value and an elevated troponin. I do think a hospital stay is warranted. I spoke to the patient and case management. The on-call hospitalist was consulted. The dyspnea she is experiencing could certainly be caused by the pleural effusions. Impression & Plan Pleural effusion, Elevated troponin, Shortness of breath, Hypomagnesemia Discharge Plan Visit Data Chief Complaint: Shortness of Breath/Dyspnea Stated Complaint: SOB,CAN'T SLEEP,GETTING WORSE ED Provider: Andrew Cheek Discharge Problem: Pleural effusion, Elevated troponin, Shortness of breath, Hypomagnesemia Patient Disposition: Being Evaluated by Hospitalist Forms Stand Alone Forms: My [facility] StatusPage Prescriptions Prescriptions: No Action tramadol 50 mg tablet 50 mg PO Q8H PRN (Reason: pain) RF: 0 carvedilol 6.25 mg tablet 6.25 mg PO BID RF: 0 venlafaxine 150 mg capsule,extended release 24hr 150 mg PO DAILY RF: 0 clopidogrel 75 mg tablet 75 mg PO DAILY RF: 0 aspirin [Aspir-81] 81 mg Tablet,Delayed Release (Dr/Ec) 81 mg PO DAILY RF: 0 econazole 1 % Cream 1 applic TOPICAL UD PRN (Reason: Rash) RF: 0 mirtazapine 30 mg Tablet 30 mg PO HS RF: 0 metformin 1,000 mg tablet 1,000 mg PO DAILY RF: 0 levothyroxine 150 mcg tablet 150 mcg PO DAILY RF: 0 pramipexole 0.25 mg tablet 0.75 mg PO HS RF: 0 ergocalciferol (vitamin D2) 50,000 unit Capsule 50,000 unit PO WK RF: 0 albuterol sulfate 90 mcg/actuation Hfa Aerosol Inhaler 2 puff INHALATION QID PRN (Reason: Shortness Of Breath Or Wheezing) RF: 0 nlarpcjilomi-zzjcggum-[id number] [Multivitamin 50 Plus] Tablet 1 tab PO DAILY RF: 0 pregabalin [Lyrica] 150 mg Capsule 300 mg PO HS RF: 0 pregabalin [Lyrica] 150 mg Capsule 150 mg PO QAM RF: 0 saxagliptin 5 mg tablet 5 mg PO DAILY RF: 0 fluticasone-vilanterol 100-25 mcg/dose blister with device 1 puff Inhalation DAILY RF: 0 dulaglutide 0.75 mg/0.5 mL pen injector 0.75 mg subcut WK RF: 0 magnesium oxide 400 mg magnesium Tablet 400 mg PO BID RF: 0 hydrochlorothiazide 25 mg Tablet 25 mg PO BID 30 Days Qty: 60 RF: 0 oxybutynin chloride 5 mg tablet 5 mg PO BID RF: 0 spironolactone 50 mg Tablet 50 mg PO DAILY RF: 0 Referrals Referrals: Swapnil Pearson [Primary Care Provider] - The scribe's documentation has been prepared under my direction and personally reviewed by me in its entirety. I confirm that the note above accurately reflects all work, treatment, procedures, and medical decision making performed by me.
--- NOTE | 2018-03-11 18:34 | XRay Report ---
XR chest 1V portable HISTORY: 67 years-old Female sob acute shortness of breath COMPARISON: Chest radiograph 03/10/2018 TECHNIQUE: Portable AP view of the chest FINDINGS: Cardiac silhouette is enlarged, unchanged. Prior median sternotomy. Single lead left subclavian pacer is unchanged. Pulmonary vascular congestion with unchanged mild right hemidiaphragmatic elevation. S ubsegmental right basilar opacities with suggested trace effusions. No pneumothorax. Degenerative belen nges of the shoulders and spine. Postoperative changes of the right humerus. IMPRESSION: 1. Cardiomegaly with pulmonary vascular congestion. 2. Subsegmental right basilar opacities suggest atelectasis or pneumonitis. 3. Chronic mild right hemidiaphragmatic elevation. The above report was generated using voice recognition software. It may contain grammatical, syntax o r spelling errors. Electronically signed by: Wander Paula M.D. 03/11/2018 6:32 PM
[2018-03-11 18:37] LABS: Basophils # (auto) 0.04 K/uL (0-0.2); Basophils % (auto) 0.6 %; Eosinophils # (auto) 0.04 K/uL (0-0.5); Eosinophils % (auto) 0.6 %; Hematocrit (blood only) 39.5 % (37-47); Hemoglobin 12.7 g/dL (12.0-16.0); Immature Granulocytes # (auto) 0.01 K/uL (0.00-0.02); Immature Granulocytes % (auto) 0.1 %; Lymphocytes % (auto) 25.5 %; Mean Corpuscular Hgb Conc 32.2 g/dL (32-36); Mean Corpuscular Volume 86.6 fL (80-100); Mean Platelet Volume 12.3 fL (7.4-10.4); Monocytes # (auto) 0.65 K/uL (0.11-0.59); Monocytes % (auto) 9.2 %; Neutrophils # (auto) 4.52 K/uL (1.4-6.5); Platelet Count 228 K/uL (130-400); RDW Coefficient of Variation 15.1 % (11.5-14.5); RDW Standard Deviation 47.9 fL (36.4-46.3); Red Blood Count 4.56 M/uL (4.2-5.4); White Blood Count 7.06 K/uL (4.8-10.8)
[2018-03-11 18:46] LABS: INR 1.5 (0.9-1.1); Partial Thromboplastin Time 27.2 Seconds (21.0-31.0); Prothrombin Time 14.8 Seconds (9.0-12.0)
[2018-03-11 18:56] LABS: Albumin Level 3.4 gm/dl (3.4-5.0); BUN Creatinine Ratio 16.1 (10-20); Calcium 8.9 mg/dl (8.5-10.1); Creatinine Clr Calc Pharmacy 59.5 ml/min; Est GFR (African American) 57.8; Est GFR (Non-African American) 49.9; Magnesium 1.4 mg/dl (1.8-2.4); Potassium 3.7 mmol/L (3.5-5.1)
[2018-03-11] MEDS ORDERED: MAGNESIUM SULFATE / D5W 1 GM/100 ML BAG IV ONE (18:57)
[2018-03-11 19:06] LABS: Bilirubin,Total 0.8 mg/dl (0.1-1); Globulin 3.4 gm/dl (2.5-4.0); Total Protein 6.8 gm/dl (6.4-8.2)
[2018-03-11 19:07] LABS: Troponin I 0.054 ng/ml (0-0.045)
[2018-03-11 19:31] LABS: T4 Free Thyroxine 1.35 ng/dl (0.8-1.6)
[2018-03-11] MEDS ORDERED: IOVERSOL 100ml IV PRN (19:48)
--- NOTE | 2018-03-11 20:08 | CT Scan Report ---
CT angio chest PE protocol HISTORY: 67 years-old Female with PE. Acute shortness of breath TECHNIQUE: Multiple CTA images of the chest were obtained after the intravenous administration of 94 ml Optiray 320. Coronal and sagittal MIPS were obtained from the axial data set and were submitted f or review. All measurements were obtained according to NASCET criteria. A dose lowering technique wa s utilized adhering to the principles of ALARA. COMPARISON: CT abdomen and pelvis of same day, CTA chest 03/24/2017 FINDINGS: CTA: Moderate multichamber cardiac enlargement. Left heart structures are not opacified. Left subclavian p acer is noted with lead overlying right ventricle. Coronary arterial calcifications are noted. Prior median sternotomy with CABG. No thoracic aortic aneurysm identified. Moderate calcified plaque of the thoracic aorta. Reflux of contrast into the IVC and hepatic veins. The segmental and subsegmental pu lmonary arterial branches are not well opacified secondary to contrast bolus timing. No central pulmo nary embolus identified. Study is also mildly limited secondary to respiratory motion artifact. CT CHEST: No dominant thyroid nodule. Prominent AP window and paratracheal lymph nodes are seen measuring up to 7-8 mm. Indeterminate 10 mm subcarinal lymph node. Small left and moderate right pleural effusions. No pneumothorax. Mild thickening of the bronchovascu lar bundles. Subsegmental bibasilar opacities, right greater than left favor atelectasis. Indetermina te 1.2 x 0.9 x 1.3 cm groundglass opacity of the left upper lobe, image 29 series 5. Mild bilateral i ntralobular septal thickening. Central airways appear patent. Please see separately dictated CT abdomen and pelvis study of same day for evaluation of the abdomina l structures. Mild generalized body wall edema. Bones appear intact. Multilevel degenerative changes of the spine. Degenerative changes of the shoulders with postoperative changes of the right humeral h ead. IMPRESSION: 1. Cardiomegaly with mild pulmonary edema, small left and moderate right pleural effusions. 2. Subsegmental right greater than left bibasilar opacities suggest atelectasis. 3. Limited evaluation of the pulmonary arterial tree as above. No central pulmonary embolus identifie d. 4. Indeterminate 1.2 x 0.9 x 1.3 cm groundglass opacity of the left upper lobe. Three-month follow-up CT of the chest recommended to exclude a low-grade bronchogenic neoplasm. 5. Nonspecific mild mediastinal adenopathy. 6. Prior median sternotomy and CABG. The above report was generated using voice recognition software. It may contain grammatical, syntax o r spelling errors. Electronically signed by: Wander Paula M.D. 03/11/2018 8:06 PM
[2018-03-11] MEDS ORDERED: CARVEDILOL 6.25 MG TAB PO STA (20:23)
--- NOTE | 2018-03-11 20:23 | CT Scan Report ---
ABDOMEN AND PELVIS CT WITH IV CONTRAST CT DOSE: 2372.43 mGy.cm HISTORY: Acute right-sided upper and lower quadrant abdominal pain right sided abd pain TECHNIQUE: Multiaxial CT images of the abdomen and pelvis were performed following the use of intrave nous contrast. A dose lowering technique was utilized adhering to the principles of ALARA. COMPARISON STUDY: CTA chest of same day, CT abdomen and pelvis 06/22/2017 FINDINGS: Moderate right and mild left pleural effusions with bibasilar opacities. Cardiomegaly. Prior median s ternotomy. No pneumatosis or pneumoperitoneum. Heterogeneous appearance of the liver. Indeterminate ill-defined area of slightly increased attenuati on of the posterior right hepatic lobe extending to the liver capsule, 2.4 x 1.3 cm. Mild periportal edema. Mixing artifact noted within the portal vein and IVC. No intrahepatic biliary ductal dilation. Gallbladder is unremarkable. The spleen, pancreas and right adrenal gland are unremarkable. Mild thi ckening of the left adrenal gland. Cortical lobulations of the bilateral kidneys with multifocal left greater then right cortical scarri ng. No renal calculi or hydronephrosis. Ureters are unremarkable. Mild wall thickening of the bladder with perivesicular stranding. Prior hysterectomy. Ovoid soft tissue attenuating mass of the left hem ipelvis is again seen, 5.2 x 3.4 cm, previously measuring opacified 0.1 x 3.0 cm on study from 018. Extensive calcification of the abdominal aorta without aneurysm. Mildly enlarged right iliac belne in lymph node measures 1.0 cm, nonspecific. No bowel obstruction. Mild circumferential wall thickening of the rectum with mild perirectal strandi ng. Colonic diverticulosis without acute diverticulitis. The appendix is not diagnostically visualize d. No secondary signs to suggest acute appendicitis. Moderate generalized body wall mesenteric edema with trace abdominopelvic ascites. Degenerative changes of the spine. Multilevel intervertebral disc space narrowing with spondylitic spurring and facet arthropathy. Possible lipoma of the space anterio r abdominal wall, 3.5 cm. IMPRESSION: 1. Fluid overload manifested by bilateral pleural effusions with moderate body wall edema and trace a bdominal pelvic ascites. 2. Heterogeneous appearance of the liver. 3. Mild circumferential wall thickening of the rectum with perirectal stranding. Correlate clinically to exclude proctitis. 4. No bowel obstruction. 5. Colonic diverticulosis without acute diverticulitis. 6. Ovoid soft tissue attenuating mass of the left hemipelvis is again seen, stable to slightly increa se in size from comparison. 7. Circumferential wall thickening of the bladder. Correlate with urinalysis to exclude cystitis. 8. Additional findings as above. Electronically signed by: Wander Paula M.D. 03/11/2018 8:22 PM
[2018-03-11] MEDS ORDERED: ONDANSETRON INJ 2 MG/ML 2 ML VIAL IV PRN (22:38)
[2018-03-11] MEDS ORDERED: ALBUTEROL HFA 8 GM INHALER INH PRN (22:38)
[2018-03-11] MEDS ORDERED: POLYETHYLENE (MIRALAX) 17 GM PACK PO PRN (22:38)
[2018-03-11] MEDS ORDERED: NITROGLYCERIN SL 0.4 MG/TAB TAB SL PRN (22:38)
[2018-03-11] MEDS ORDERED: DEXTROSE 50% 50 ML SYRINGE IV PRN (22:57)
[2018-03-11] MEDS ORDERED: GLUCOSE 40% GEL 15 GM TUBE PO PRN (22:57)
[2018-03-11] MEDS ORDERED: GLUCAGON FOR INJ 1 MG VIAL SQ PRN (22:57)
[2018-03-11] MEDS ORDERED: CARBOHYDRATES FOR HYPOGLYCEMIA PO PRN (22:57)
[2018-03-11] MEDS ORDERED: GLUCOSE 10 TABS/TUBE PO PRN (22:57)
[2018-03-11] MEDS: INSULIN GLARGINE SOLOSTAR 100 UNITS/ML 3 ML PEN SC SCH (23:40)
[2018-03-11] MEDS: HEPARIN SOD 5,000 UNIT/0.5 ML VIAL SQ SCH (23:47)
[2018-03-11] MEDS: PREGABALIN 150 MG CAP PO SCH (23:49)
[2018-03-12 01:04] LABS: Appearance Urine Clear (Clear); Bacteria Urine Automated Negative (Negative); Bilirubin Urine Negative (Negative); Color Urine Yellow; Epithelial Cell Urine Auto 20-30 /lpf (0-5); Glucose Urine UA Negative (Negative); Ketones Urine Negative (Negative); Leukocyte Esterase Urine Negative (Negative); Nitrite Urine Negative (Negative); Protein Urine 4+ (Negative); Specific Gravity Urine > 1.045 (1.000-1.030); Urobilinogen Urine Negative (Negative)
[2018-03-12 01:37] LABS: Cast Urine Automated 0 /lpf (0-5)
[2018-03-12] MEDS ORDERED: XOPENEX/ATROVENT 1.25mg/0.5MG NEB COMBO NEB PRN (01:39)
[2018-03-12] MEDS: LEVALBUTEROL 1.25MG/0.5ML NEB INH PRN ×2 (02:29→09:39)
[2018-03-12] MEDS: IPRATROPIUM BROMIDE NEB SOLN 0.02% 2.5 ML VIAL INH PRN ×2 (02:29→09:39)
--- NOTE | 2018-03-12 02:58 | History and Physical Report ---
DATE OF ADMISSION: 03/11/2018 CHIEF COMPLAINT: Shortness of breath. HISTORY OF PRESENT ILLNESS: A 67-year-old female with past medical history significant for ischemic cardiomyopathy, EF of around 25% to 30%, status post ICD, hyperlipidemia, GERD, systolic and diastolic heart failure, history of BLANCA and hyperkalemia in the recent past, history of falls, hypothyroidism, diabetes, diabetic neuropathy, hypertension, chronic kidney disease stage III, depression, obesity, diabetic foot ulcers, who was brought in with shortness of breath. The patient was recently in the hospital for altered mental status, found to have BLANCA and hyperkalemia, seen by nephrology. Her Aldactone and ELADIO inhibitors were held and she improved and was discharged to [facility]. Her lisinopril and Aldactone were stopped at discharge. Her hydrochlorothiazide was increased to 25 mg p.o. b.i.d. and she was treated with Keflex for diabetic foot ulcers. She was seen by Dr. Donald at that time and if did not improve plan to follow as outpatient. The patient was discharged from [facility] and as her house was very cold, she went to stay with her sister. Since October, she is living mostly with her sister,. As per sister, she is getting more short of breath. Walking short distances has been making her more short of breath and patient could not lie down flat and she thought she could not take care of her. She came to the ER yesterday. Workup was okay and she was sent back, but after going home, she was again having shortness of breath, so she came back. A CAT scan was done which showed bilateral pleural effusion, right greater than left, and also some pulmonary congestion and we were called for admission. The patient is saturating okay. Vitals are stable, but she says she gained about 30-40 pounds in the last 3-4 months, poor ambulation, walks with a walker and sister says she cannot take care of her and patient cannot live alone and social service also found a placement in [facility] when she gets discharged from here. Patient has severe allergy to Lasix, she cannot take Lasix. She was placed on Aldactone and ethacrynic acid, but she said the ethacrynic acid was stopped because she was having nausea from it. Also Aldactone was stopped last admission because of hyperkalemia. Now she is on HCTZ 25 mg p.o. b.i.d., Denies any chest pain. She always has some cough. No fever. Has chronic migraines. No blurred visions. No difficulty swallowing. Appetite is not that great, but she is is noncompliant with the diet restrictions. No chest pain, no nausea, no abdominal pain. Normal bowel and bladder movements. She has incontinence of urine when she coughs. Has chronic lower extremity edema. ALLERGIES: CLINDAMYCIN, FUROSEMIDE, LOVASTATIN, SIMVASTATIN, BACTRIM, AMOXICILLIN, ATORVASTATIN, CLAVULANIC ACID, EGGS, LATEX, PENICILLIN, TRIAMCINOLONE, NICKEL, CAPSAICIN, DICLOFENAC, ISOPROPYL ALCOHOL, PROPYLENE GLYCOL ACETAMINOPHEN. PAST MEDICAL HISTORY: As mentioned above. PAST SURGICAL HISTORY: Status post amputation of the right fifth toe, status post AICD placement. MEDICATIONS: The patient is supposed to be on hydrochlorothiazide 25 mg p.o. b.i.d., Coreg 6.25 mg p.o. b.i.d., venlafaxine 150 mg p.o. daily, Plavix 75 mg b.i.d., aspirin 81 mg p.o. daily, mirtazapine 30 mg p.o. at bedtime, metformin 1000 mg p.o. b.i.d., levothyroxine 150 mcg p.o. daily, pramipexole 0.75 mg p.o. at bedtime, vitamin D 5000 units p.o. weekly, albuterol 2 puffs inhalation q.i.d. p.r.n., oxybutynin 5 mg p.o. b.i.d., multivitamin 1 tablet p.o. daily, Lyrica 300 mg p.o. at bedtime, Lyrica 150 mg p.o. a.m., saxagliptin 5 mg p.o. daily, fluticasone vilanterol one inhalation daily, dulaglutide 0.75 mg subcutaneous weekly, magnesium oxide 400 mg p.o. b.i.d., tramadol 50 mg p.o. q. 8 hours p.r.n. FAMILY HISTORY: Significant for heart attack. SOCIAL HISTORY: Former smoker, quit 30 years ago. Alcohol, quit 2 years ago. No substance abuse. Currently lives with her sister. REVIEW OF SYMPTOMS: As per HPI. Rest of the review of systems is negative. PHYSICAL EXAMINATION: GENERAL: The patient is obese, not in acute distress. VITAL SIGNS: Temperature 36.7, pulse 109, respiratory rate 20, blood pressure 140/77, oxygen 99% on 3 liters. HEENT: No pallor, no icterus. Pupils equal, round, reactive to light. NECK: No JVD, no neck masses, no carotid bruit. CARDIOVASCULAR: S1, S2 heard, regular rate and rhythm, no murmur, no gallop. RESPIRATORY SYSTEM: Clear to auscultation bilaterally. Bibasilar crackles present. No wheezing. ABDOMEN: Soft, bowel sounds present. Nontender. No distention. CENTRAL NERVOUS SYSTEM: Cranial nerves II-XII grossly intact. Nonfocal. EXTREMITIES: Lower extremity edema present, no erythema seen. Diabetic toe ulcers LABORATORY DATA: WBC 7, hemoglobin 12.7, hematocrit 39.5, platelets 228. PT 14.5, INR 1.5, APTT 27.2. Sodium 141, potassium 3.7, chloride 105, bicarbonate 26, BUN 19, creatinine 1.1, serum glucose 298, lactate 1.8, calcium 8.9, magnesium 1.4, total bilirubin 0.8, AST 28, ALT 33, alkaline phosphatase 99, troponin was 0.05. TSH 2.7, free T4 1.35. IMAGING DATA: CT of the chest, no PE, mild pulmonary edema, small left and moderate right pleural effusions, indeterminate 1.2 and 1.6 cm ground glass opacities in the left upper lobe. Three-month followup CT chest is recommended to exclude a low-grade bronchogenic neoplasm. CT of the abdomen and pelvis, fluid overload, manifested by bilateral pleural effusion with moderate body wall edema and trace abdominal and pelvic ascites, heterogeneous appearance of the liver, possible proctitis. No bowel obstruction. Soft tissue mass of the left hemipelvis is again seen. Stable, slightly increased in size from previous. Circumferential wall thickening of the bladder, could be cystitis. ASSESSMENT AND PLAN: This is a 67-year-old female who presents with shortness of breath, found to have pleural effusions and CHF. 1. Acute shortness of breath, [id number] systolic congestive heart failure. Previous echo showed EF of 25% to 30% and status post ICD. Patient is allergic to Lasix and ethacrynic acid. Currently, on HCTZ 25 mg p.o. b.i.d. We will monitor in the tele floor. Follow echocardiogram and consult cardiology for adjustment of the diuretics. Last time Aldactone was stopped because of hyperkalemia. Currently saturating okay. If any issues with saturations, patient will be placed on BiPAP. Daily weights and I's and O's. Mild elevation of troponin, most probably CHF. We will follow serial cardiac enzymes and echocardiogram. 2. Hypomagnesemia, replace. 3. Diabetes. Hold home p.o. medication. Placed her on sliding scale insulin, Lantus. Will follow the HbA1c level and follow the blood sugars. 4. Pleural effusion, causing shortness of breath possibly from CHF. We will do a chest ultrasound and also consult pulmonary for possible thoracocentesis. 5. Lung Nodule , about 1.2 and 1.6 cm ground glass opacity of the left upper lobe. Three-month followup CT is recommended. Referred to lung nodule clinic.Appreciate Pulmonary input 6. Overt soft tissue mass of the left hemipelvis on the CAT scan of the abdomen, slightly increased in size from previous. 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 7. History of coronary artery disease status post coronary artery bypass grafting, on Coreg, Plavix, aspirin. Patient is intolerant to statins. 8. Depression, on venlafaxine. 9. Hypothyroidism, on Synthroid. 10. Diabetic foot ulcers, not healing. Recently treated with antibiotics. There is plan to follow with outpatient orthopedics. Will consult wound care and also consult Dr. Donald. 11. Obstructive sleep apnea, on CPAP. 12. Gastroesophageal reflux disease. 13. Deep venous thrombosis prophylaxis. Heparin subQ. 14. Disposition: Observation in tele floor. PT and OT prior to discharge. Social service to help with discharge planning. Plan for long-term placement in [facility]. GISEL
[2018-03-12 05:37] LABS: Basophils # (auto) 0.04 K/uL (0-0.2); Basophils % (auto) 0.6 %; Eosinophils # (auto) 0.08 K/uL (0-0.5); Eosinophils % (auto) 1.1 %; Hematocrit (blood only) 36.2 % (37-47); Hemoglobin 11.3 g/dL (12.0-16.0); Immature Granulocytes # (auto) 0.01 K/uL (0.00-0.02); Immature Granulocytes % (auto) 0.1 %; Lymphocytes # (auto) 2.13 K/uL (1.2-3.4); Lymphocytes % (auto) 30.2 %; Mean Corpuscular Hgb Conc 31.2 g/dL (32-36); Mean Corpuscular Volume 86.4 fL (80-100); Monocytes % (auto) 9.9 %; Neutrophils # (auto) 4.09 K/uL (1.4-6.5); Neutrophils % (auto) 58.1 %; Platelet Count 196 K/uL (130-400); RDW Coefficient of Variation 15.1 % (11.5-14.5); RDW Standard Deviation 47.8 fL (36.4-46.3); Red Blood Count 4.19 M/uL (4.2-5.4); White Blood Count 7.05 K/uL (4.8-10.8)
[2018-03-12 06:00] LABS: BUN Creatinine Ratio 18.2 (10-20); Calcium 8.4 mg/dl (8.5-10.1); Creatinine Clr Calc Pharmacy 69.5 ml/min; Est GFR (Non-African American) 61.3; Magnesium 1.6 mg/dl (1.8-2.4); Potassium 3.6 mmol/L (3.5-5.1)
[2018-03-12] MEDS: HEPARIN SOD 5,000 UNIT/0.5 ML VIAL SQ SCH ×3 (06:17→22:04)
[2018-03-12] MEDS: LEVOTHYROXINE SODIUM 150 MCG TABLET PO SCH (06:17)
[2018-03-12 06:19] LABS: Troponin I 0.06 ng/ml (0-0.045)
--- NOTE | 2018-03-12 07:50 | Ultrasound Report ---
ULTRASOUND RIGHT UPPER QUADRANT ABDOMEN CLINICAL HISTORY: Right upper quadrant abdominal pain. COMPARISON STUDY: Abdominal CT dated 03/11/2018. TECHNIQUE: Real-time, grayscale, and color flow sonography of the right upper quadrant of the abdomen was performed. Images are reviewed in the transverse and longitudinal planes. FINDINGS: Liver: The liver is normal in size and demonstrates heterogeneously increased echotexture consistent with hepatic steatosis. There is no intrahepatic biliary ductal dilatation. The main portal vein is p atent. Gallbladder: The gallbladder is mildly distended. There are small gallstones and biliary sludge. Ther e is no gallbladder wall thickening. Trace pericholecystic fluid is noted. A sonographic Angeles's sig n is reportedly absent. The common bile duct measures up to 0.5 cm in diameter. Pancreas: Not well visualized due to overlying bowel gas. Right kidney: Survey images of the right kidney demonstrate normal size and echotexture. There is no hydronephrosis. Ascites: Trace perihepatic fluid is noted. Pleural spaces: There is a right pleural effusion. IMPRESSION: 1. Cholelithiasis and biliary sludge with mild gallbladder distention. There is no definitive sonogra phic evidence of acute cholecystitis. If there is strong clinical concern for cholecystitis consider nuclear hepatobiliary scan for further assessment. 2. Small volume of abdominal ascites. 3. Right pleural effusion. 4. The pancreas was not visualized. 5. Hepatic steatosis. Electronically signed by: Andrew Navarro M.D. 03/12/2018 7:49 AM
[2018-03-12] MEDS: ASPIRIN 81 MG ECTAB PO SCH (08:00)
[2018-03-12] MEDS: VENLAFAXINE HCL XR 150 MG CAPXR PO SCH (08:00)
[2018-03-12] MEDS: CARVEDILOL 6.25 MG TAB PO SCH ×2 (08:00→20:38)
[2018-03-12] MEDS: MAGNESIUM OXIDE 400 MG TAB PO SCH ×2 (08:01→20:41)
[2018-03-12] MEDS: OXYBUTYNIN CHLORIDE 5 MG TAB PO SCH ×2 (08:01→20:39)
[2018-03-12] MEDS: CEROVITE ADV FORMULA TAB PO SCH (08:01)
[2018-03-12] MEDS: CLOPIDOGREL BISULFATE 75 MG TAB PO SCH (08:01)
[2018-03-12] MEDS: INSULIN ASPART 100 UNITS/ML 3 ML PEN SC SCH ×4 (08:03→20:45)
[2018-03-12] MEDS: INSULIN GLARGINE SOLOSTAR 100 UNITS/ML 3 ML PEN SC SCH ×2 (08:04→20:46)
[2018-03-12] MEDS: PREGABALIN 150 MG CAP PO SCH ×2 (08:07→20:37)
[2018-03-12] MEDS ORDERED: hydroCHLOROthiazide 25 MG TAB PO SCH (09:00)
--- NOTE | 2018-03-12 09:07 | Ultrasound Report ---
ULTRASOUND OF THE PLEURAL SPACES CLINICAL HISTORY: Pleural effusion. COMPARISON STUDY: Chest CT dated 03/11/2018. FINDINGS: Real-time grayscale sonography of the pleural spaces is performed to assess pleural effusio ns. There are small left and moderate right pleural effusions with associated atelectasis. The right pleural effusion has an estimated volume of 940 cc, and the left pleural effusion has an estimated vo lume of 10 cc. The right pleural effusion was marked for bedside thoracentesis. IMPRESSION: Right larger than left pleural effusions as above. Electronically signed by: Andrew Navarro M.D. 03/12/2018 9:06 AM
--- NOTE | 2018-03-12 09:16 | Orthopedic Consultation ---
Date of Consultation March 12, 2018 Assessment & Plan (1) Toe ulcer due to DM: The patient is a 67-year-old female with history of left foot hammertoe and distal tip ulceration. Patient had follow-up with Dr. Donald as an outpatient but does not recall the date of her appointment. In regards to the patient's toe ulceration clinically she appears unchanged since prior admission however at this time we will obtain up-to-date x-rays to assess the underlying bone, recommend localized wound care/wound care consult, patient may weight- bear as tolerates through the heel of her foot and postoperative shoe. We will have Dr. Donald's team review the patient's studies once available for further inpatient recommendations and/or interventions versus outpatient follow-up. Thank you for the consultation History of Present Illness Reason for Consultation: Left foot second toe distal ulceration Attending Physician: Laquita Anand MD History of Present Illness Patient is a 67-year-old female with significant past medical history for ischemic cardiomyopathy, hyperlipidemia, GERD, CHF, AK I, hypothyroidism, DM, HTN, CKD stage III, obesity, diabetic foot ulcers with acute complaints of shortness of breath. Was brought to [facility] for further evaluation and treatment secondary to bilateral pleural effusions and pulmonary congestion. Had recent hospitalization 02/18/2018 and seen by orthopedics for left foot second digit distal ulceration. Patient had follow-up to see Dr. Donald in the office for this condition. Symptoms or complaints were left distal tip ulceration remain unchanged, has been receiving localized wound care. Patient currently denies fevers chills nausea vomiting diarrhea chest pain. Allergies Allergy/AdvReac Type Severity Reaction Status Date / Time clindamycin Allergy Severe RASH, Verified 03/11/18 18:13 DELUSIONAL, CONVULSIONS Egg Derived Allergy Severe ANAPHYLAXIS Verified 03/11/18 18:13 furosemide Allergy Severe ANAPHYLAXIS Verified 03/11/18 18:13 rosuvastatin Allergy Severe LEG Unverified 03/11/18 18:13 WEAKNESS simvastatin Allergy Severe LEG Unverified 03/11/18 18:13 WEAKNESS Bactrim Allergy Intermediate RASH Verified 04/13/17 16:00 sulfamethoxazole Allergy Intermediate RASH Verified 03/11/18 18:13 trimethoprim Allergy Intermediate RASH Verified 03/11/18 18:13 amoxicillin Allergy Unknown . Verified 03/11/18 18:13 atorvastatin Allergy Unknown acute Verified 03/11/18 18:13 renal failure clavulanic acid Allergy Unknown . Verified 03/11/18 18:13 egg Allergy Unknown _ Verified 03/11/18 18:13 latex Allergy Unknown RASH Verified 03/11/18 18:13 Penicillins Allergy Unknown unknown Verified 03/11/18 18:13 triamcinolone Allergy Unknown RASH Verified 03/11/18 18:13 nickel Allergy Redness of Verified 03/11/18 18:13 Skin capsaicin AdvReac Severe SKIN Verified 03/11/18 18:13 SLOTHED FROM HEEL diclofenac AdvReac Severe SKIN Verified 03/11/18 18:13 SLOTHED FROM HEEL Diclopak AdvReac Severe SKIN Verified 04/13/17 16:00 SLOTHED FROM HEEL isopropyl alcohol AdvReac Severe SKIN Verified 03/11/18 18:13 SLOTHED FROM HEEL propylene glycol AdvReac Severe SKIN Verified 03/11/18 18:13 SLOTHED FROM HEEL acetaminophen AdvReac Mild VOMITING Verified 03/11/18 18:13 Home Medications Home Medications Medication Instructions Recorded Confirmed Type albuterol sulfate 2 puff INHALATION QID PRN 02/18/18 03/11/18 History aspirin [Aspir-81] 81 mg PO DAILY 02/18/18 03/11/18 History carvedilol 6.25 mg PO BID 02/18/18 03/11/18 History clopidogrel 75 mg PO DAILY 02/18/18 03/11/18 History dulaglutide 0.75 mg SUBCUT WK 02/18/18 03/11/18 History econazole 1 applic TOPICAL UD PRN 02/18/18 03/11/18 History ergocalciferol (vitamin D2) 50,000 unit PO WK 02/18/18 03/11/18 History fluticasone-vilanterol 1 puff INHALATION DAILY 02/18/18 03/11/18 History levothyroxine 150 mcg PO DAILY 02/18/18 03/11/18 History magnesium oxide 400 mg PO BID 02/18/18 03/11/18 History metformin 1,000 mg PO DAILY 02/18/18 03/11/18 History mirtazapine 30 mg PO HS 02/18/18 03/11/18 History ltqiarvlpwtl-hjkmdntm-aweedk 1 tab PO DAILY 02/18/18 03/11/18 History [Multivitamin 50 Plus] pramipexole 0.75 mg PO HS 02/18/18 03/11/18 History pregabalin [Lyrica] 150 mg PO QAM 02/18/18 03/11/18 History pregabalin [Lyrica] 300 mg PO HS 02/18/18 03/11/18 History saxagliptin 5 mg PO DAILY 02/18/18 03/11/18 History venlafaxine 150 mg PO DAILY 02/18/18 03/11/18 History hydrochlorothiazide 25 mg PO BID 30 Days #60 tab 02/22/18 03/11/18 Rx oxybutynin chloride 5 mg tablet 5 mg PO BID tab 03/01/18 03/11/18 History tramadol 50 mg tablet 50 mg PO Q8H PRN tab 03/01/18 03/11/18 History Patient History Medical History 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) Ischemic cardiomyopathy (Chronic) Hyperlipidemia (Chronic) GERD (gastroesophageal reflux disease) (Chronic) Systolic congestive heart failure Family History Father Heart attack Social History Current Living Situation: Family Current Living Situation Comment: staying with sister Feels Safe at Home: Yes Safety Concerns: Feels Safe At This Time Smoking Status: Former smoker Smoking End Date: 1994 Second Hand Exposure: No Hx Alcohol Use: No (quit drinking in 1987) Hx Substance Use: No Beliefs That Will Affect Care: None and Yazdanism Yazdanism Beliefs: Rastafarian Communication Ability: Effective Review of Systems Constitutional: as per Subjective / HPI Physical Exam 2 Vital Signs (Past 24 Hours): Last Vital Signs Temp 36.8 C 03/12/18 06:58 Pulse 94 H 03/12/18 06:58 Resp 18 03/12/18 06:58 BP 119/80 03/12/18 06:58 Pulse Ox 92 03/12/18 06:58 Physical Exam: Left lower extremity is neurovascular sensory intact, there is a second digit hammertoe, distal tip ulceration measuring 1.5 x 1 cm. This is superficial into the subcutaneous tissue with no exposed bone, there is scant serous drainage. No erythema noted or clover pus. _ (1) Toe ulcer due to DM Diabetes mellitus type: type 2 Laterality: left Non-pressure ulcer stage: limited to breakdown of skin Qualified Code(s): E11.621 - Type 2 diabetes mellitus with foot ulcer; L97.521 - Non-pressure chronic ulcer of other part of left foot limited to breakdown of skin
--- NOTE | 2018-03-12 10:19 | XRay Report ---
LEFT FOOT 2 VIEWS CLINICAL HISTORY: Second toe ulceration. FINDINGS: AP and lateral views of the left foot are compared to study dated 02/18/2018. The skeletal structures are osteopenic. No acute fracture is seen. There is no bony erosion or periostitis typical in appearance for osteomyelitis. There has been amputation of the fifth toe at the level of the meta tarsophalangeal joint. There is chronic posttraumatic deformity of the second and fifth metatarsals. Advanced osteoarthritic change is seen at the first interphalangeal joint. Mild arthritic change is s een at the first metatarsophalangeal joint. There are large dorsal and plantar calcaneal enthesophyte s. Mild soft tissue edema is noted in the forefoot. IMPRESSION: 1. Soft tissue edema with no acute bony abnormality identified. 2. Osteopenia with degenerative, chronic posttraumatic, and postoperative changes as above. 3. Large heel spurs. Electronically signed by: Andrew Navarro M.D. 03/12/2018 10:17 AM
--- NOTE | 2018-03-12 12:50 | Consultation Report ---
DATE OF CONSULTATION: 03/12/2018 REQUESTING PHYSICIAN: Kole Gee MD BENCH MECHANIC: Jarod Valverde DO, [facility] for Dr. Royal Mayen who is the patient's primary bartender helper. REASON FOR CONSULTATION: Acute on chronic systolic heart failure. This is one of multiple admissions she was admitted in November for single chamber ICD implantation. In January, she was admitted for acute renal failure and hyperkalemia. At that time, her Aldactone and ELADIO inhibitor therapy was stopped. She describes having gained approximately 30 pounds since she was discharged in the end of January. She describes increasing shortness of breath and dyspnea on exertion. She describes PND or orthopnea, although she tries to start sleeping in bed. She notes that she ends up sleeping on the couch. She is living with her sister and it sounds like her sister is not capable of taking care of her. She is incontinent of urine. She denies any chest pain or chest pressure or palpitations. She is short of breath talking in sentences and she notes she can walk maybe 10-20 feet with her walker before she needs to stop. She describes chronic headaches. She denies any lightheadedness or dizziness, presyncope, syncope. She has had worsening lower extremity edema. She also describes increased abdominal distention. The rest of review of system is otherwise negative. PAST MEDICAL HISTORY: 1. Coronary artery disease, status post coronary bypass grafting March 2005 at [facility]. 2. Severe ischemic cardiomyopathy with an EF in the range of 25%. 3. Single chamber defibrillator, 11/2017. 4. Chronic lower extremity edema. 5. Chronic systolic heart failure. 6. Anaphylaxis to ELADIO inhibitor therapy. 7. CABG x4 March 2015 with a MENCHACA to the LAD, SVG to D1, SVG to OM, and SVG to the PDA. 8. Postoperative atrial fibrillation. 9. Diabetes, status post admission for DKA August 2016. 10. Right diabetic foot ulcer. 11. Admission for heart failure 04/15/2017 through 04/19/2017 at [facility]. 12. Moderate pulmonary hypertension. SOCIAL HISTORY: She is currently living with her daughter. She denies any alcohol use. She is a former smoker. FAMILY HISTORY: Positive for diabetes and heart failure. MEDICATIONS: Reviewed in electronic medical record. ALLERGIES: CLINDAMYCIN, EGGS, FUROSEMIDE WHICH CAUSED ANAPHYLAXIS, ROSUVASTATIN, SIMVASTATIN, BACTRIM, TRIMETHOPRIM, SULFA, AMOXICILLIN, ATORVASTATIN, CLAVULANIC ACID, TRIAMCINOLONE, ISOPROPYL ALCOHOL, PROPYLENE GLYCOL, ACETAMINOPHEN. PHYSICAL EXAMINATION: GENERAL: She is awake, alert, oriented x3. She looks older than her stated age. VITAL SIGNS: Her heart rate is 92, blood pressure 120/79, respirations 19, her sats 93% on room air. HEENT: Severely reduced carotid upstrokes. No evidence of carotid bruits. Her jugular venous pressure cannot be assessed due to her neck size. LUNGS: Significantly decreased breath sounds in the bases, greater on the right compared to the left. HEART: Regular rate and rhythm. No appreciable murmurs, rubs or gallops. ABDOMEN: Soft, obese, nontender, chronically distended. EXTREMITIES: Mild bilateral lower extremity edema to the mid tibia. PSYCHIATRIC: Affect appeared appropriate. DIAGNOSTIC STUDIES: Sodium 143, potassium 3.6, BUN of 18, creatinine 0.97. Her troponin is 0.054, which is trending down from a peak of 0.063. Her magnesium is 1.6. Her hemoglobin is 11.3 with a platelet count of 196. CT of her chest, cardiomegaly, mild pulmonary edema, small left, moderate right pleural effusion. IMPRESSION: 1. Acute on chronic systolic heart failure. 2. Coronary artery disease, status post coronary bypass grafting x4. 3. History of acute kidney injury. 4. Intolerance to furosemide, secondary to anaphylaxis. 5. Status post single chamber defibrillator. I made the following recommendations: In addition to her current heart failure regimen and in discussion with pharmacy, I would add metolazone, which is a thiazide diuretic. She has tolerated hydrochlorothiazide without any allergic reaction and therefore should tolerate metolazone as well. Metolazone should give us a better diuresis. I would try to start low-dose Entresto. Hopefully, she will not have acute renal failure associated with it, but given the significant reduction in heart failure admission and heart failure , I do believe we should try it. Hopefully without being on a potassium sparing diuretic at the same time, she will not have hyperkalemia like she had previously in January. She is also currently going to have a thoracentesis for the right pleural effusion. Hopefully, we can diurese her without progressive renal dysfunction and hyperkalemia. It sounds like she will be going to a long term after this as her sister cannot care for her. Dr. Mayen will return tomorrow to continue with her care.
[2018-03-12] MEDS: SACUBITRIL-VALSARTAN 24-26 MG TAB PO SCH ×2 (12:51→20:41)
[2018-03-12] MEDS: metOLazone 5 MG TABLET PO SCH (12:53)
[2018-03-12 13:25] LABS: Amylase Pleural Fluid 10 U/L
[2018-03-12 13:29] LABS: Albumin Level 3.2 gm/dl (3.4-5.0); Total Protein 6.2 gm/dl (6.4-8.2)
[2018-03-12 13:47] LABS: LDH Pleural Fluid 81 IU
--- NOTE | 2018-03-12 13:48 | XRay Report ---
SINGLE VIEW CHEST CLINICAL HISTORY: Status post right-sided thoracentesis. FINDINGS: An AP, portable, upright chest radiograph is compared to study dated 03/11/2018. The examin ation is degraded by portable technique and patient rotation. A single lead cardiac AICD is unchanged in position and partially obscures the left lower chest. The patient is status post midline sternoto my. The heart is enlarged and there is atherosclerotic calcification of the thoracic aorta. The pulmo nary vasculature is noncongested. Chronic interstitial thickening is similar to previous. Small pleur al effusions are noted. There is no airspace consolidation typical for pneumonia. No pneumothorax is seen. The skeletal structures are osteopenic. The bony thorax is grossly intact. Surgical anchors are noted in the right humeral head. IMPRESSION: 1. No pneumothorax is identified post procedure. 2. Cardiomegaly and AICD. There is no radiographic evidence of congestive failure. 3. Trace pleural effusions are noted. Electronically signed by: Andrew Navarro M.D. 03/12/2018 1:47 PM
[2018-03-12 13:51] LABS: Mononuclear WBC Pleural 93.7 %; Polynuclear WBC Pleural 6.3 %; RBC Pleural Fluid (A) < 3000 /uL; Source Pleural Fluid RIGHT LUNG; WBC Pleural Fluid (A) 257 /uL
--- NOTE | 2018-03-12 14:02 | Consultation Report ---
DATE OF CONSULTATION: 03/12/2018 REASON FOR CONSULTATION: Right-sided pleural effusion, moderate to large for a thoracentesis. HISTORY OF PRESENT ILLNESS: This is a very pleasant and unfortunate 67-year-old female patient known to have a past medical history of ischemic cardiomyopathy with heart failure with reduced ejection fraction of 25%-30%, status post AICD placement. She is also hyperlipidemic, has GERD, hypothyroidism, and type 2 diabetes complicated with diabetic neuropathy. In addition, she has hypertension, chronic kidney disease stage III, depression, obesity, and diabetic foot ulcers. She was admitted with shortness of breath that is progressively worsening. There was no chest pain, cough, fever, chills, or associated pleurisy. The patient had had a recent admission because of hyperkalemia. Her medications which included Aldactone, lisinopril, and hydrochlorothiazide were all managed by Dr. Donald. At the bedside, the only complaint that she has is shortness of breath at rest and on exertion, but she is on room air. Again, there is no associated cough, fever, chills, hemoptysis, hematemesis, chest pain, pleuritic or otherwise. On a 10-point review of systems, she offers no other complaint except swollen ankles, and she does not have diarrhea, nausea, or vomiting. She does not have seizures or seizure like activity. She does not have polydipsia or polyuria recently. She denies having dysuria, hematuria, or urinary frequency. She has a problem with diabetic foot ulcers, but she does not complain of pain. PAST MEDICAL HISTORY: Significant for the above-mentioned complaints. PAST SURGICAL HISTORY: She is status post amputation of the right fifth toe and status post AICD placement. FAMILY HISTORY: Positive for coronary artery disease. SOCIAL HISTORY: The patient denies alcohol or substance abuse. She is a former smoker, stopped 30 years ago. She is also a former alcohol user, stopped 2 years ago. She lives with her sister at the present time. MEDICATIONS: Her home medications include hydrochlorothiazide, Coreg, venlafaxine, Plavix, aspirin, mirtazapine, metformin, levothyroxine, pramipexole, vitamin D, albuterol, oxybutynin, multivitamin, Lyrica, fluticasone/vilanterol, and dulaglutide as well as magnesium oxide and tramadol. PHYSICAL EXAMINATION: VITAL SIGNS: The patient's temperature is 36.6, her heart rate is 100 per minute, she is saturating at 92% on room air, her blood pressure is 120/79. HEAD AND NECK: She has a +1 JVD. She has no lymphadenopathy. She has short and a thick neck. Mallampati oral score is 3. LUNGS: There are bilateral fine rales. She has absent and diminished air entry on the right lung base. There is air entry on the left base. HEART: Regular S1 and S2. I could not appreciate murmurs. ABDOMEN: There is central obesity, but it is soft, nontender, with no organomegalies, and the bowel sounds are normal. EXTREMITIES: The patient has skin changes of vascular insufficiency. Because of +1 edema, the skin appears tight. The ankles are edematous of +3, and she has on both heels a dressing. The fifth toe is absent on the right. LABORATORY DATA: Reviewed, and her white count is 7000, her hemoglobin is 11.3, the platelets are 196. Her coagulation profile shows an INR of 1.5 and a PTT of 27. There are no recent blood gases. Her chemistry profile is within normal. The creatinine is at 0.97, her sugar is 153. Her magnesium is low at 1.6 and it is being replaced. Latest troponin is 0.054 and it is trending down. It has never been above 0.06. IMAGING: CT scan angiogram of the chest was obtained on 03/11/2018. It shows cardiomegaly, pulmonary edema, moderate right pleural effusion, and a smaller left pleural effusion. There is a left upper lobe ground-glass opacity of about 1.2 x 1.2 cm and mildly enlarged nonspecific mediastinal lymphadenopathy. There is a prior median sternotomy for CABG and the appropriate wires at the sternum. ASSESSMENT AND PLAN: This is a very pleasant 67-year-old lady who is known to have hypertension, diabetes, ischemic cardiomyopathy. She is presenting with acute respiratory failure with hypoxemia secondary to a moderate to large right-sided pleural effusion, probably related to her heart failure status. RECOMMENDATIONS AND PLAN: We proceeded with thoracentesis and removed around 1300 mL of clear straw fluid after the patient offered her informed consent. Post procedure, she felt much better. Would recommend optimizing diuretics and heart failure medications as per cardiology. Recommend to continue albuterol p.r.n. for symptomatic relief. Recommend to obtain post procedure chest x-ray and PFTs as outpatient to evaluate her baseline pulmonary function test. Recommend DVT prophylaxis. Thank you for consulting me on this very pleasant lady.
--- NOTE | 2018-03-12 17:55 | Hospitalist Progress Note ---
Date of Service March 12, 2018 Assessment & Plan (1) Pleural effusion: secondary to decompensated CHF appreciate input form cardiology and Pulm s/p thoracenthesis of > 1 L pt reports of significant improvement of symptom Description of orthopnea, dyspnea on exertion (2) Acute systolic CHF (congestive heart failure), NYHA class 3: History of ischemic cardiomyopathy with combined systolic and diastolic heart failure, Presented with decompensated CHF with weight gain, dyspnea on exertion, orthopnea appreciate input from cardiology and pulmonology Thoracentesis done with drainage of significant amount of pleural effusion giving symptomatic relief Is allergic to Lasix and sulfa based diuretics Cardiology started on Zaroxolyn and Entresto Continue to monitor volume status (3) Toe ulcer due to DM: Has chronic left foot diabetic toe ulcer Follows with Dr. Donald Ortho consulted (4) Stage III chronic kidney disease: Follow renal function while getting diuresis (5) DM type 2 (diabetes mellitus, type 2): Insulin sliding scale (6) CAD (coronary artery disease): Presented with shortness of breath, dyspnea on exertion secondary to decompensated CHF with biventricular failure Symptoms improved after diuresis/ paracentesis No evidence of acute coronary event Continue all cardiac meds Cardiology consulted, appreciate input (7) Ischemic cardiomyopathy: Severe ischemic cardiomyopathy with biventricular failure Presented with decompensated CHF Volume status improved after diuresis/thoracentesis Cardiology if following Patient started with Entresto Added metolazone for diuresis (8) GERD (gastroesophageal reflux disease): Continue PPI (9) DVT prophylaxis: Subcu heparin (10) Discharge planning issues: Was living with sister who is doing probably PT OT evaluation requested Patient and family willing for skilled rehab leading to 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 Social service consult for discharge planning Subjective s/p thoracenthesis feels much better no hypoixa , in room air no complain of SOB or TARIQ no coagh Physical Exam 2 Vital Signs (Past 24 Hours): Last Vital Signs Temp 36.5 C 03/12/18 15:10 Pulse 75 03/12/18 15:10 Resp 20 03/12/18 15:10 BP 103/65 03/12/18 15:10 Pulse Ox 96 03/12/18 15:10 Constitutional: WD/WN, vitals as above Eyes: PERRL, conjunctivae normal, anicteric sclerae ENMT: external ear and nose normal, oropharynx normal Neck: trachea midline, no thyromegaly Respiratory: + abnormal respiratory effort and no respiratory distress Cardiovascular: Rate/Rhythm: regular rate and regular rhythm Gastrointestinal (Abdomen): normal bowel sounds, soft, nontender, no hepatosplenomegaly Musculoskeletal: Head/Neck/Chest: normocephalic and head atraumatic _ (1) DM type 2 (diabetes mellitus, type 2) Chronic kidney disease stage: stage 3 (moderate) Diabetes mellitus complication detail: with chronic kidney disease Diabetes mellitus complication status: with kidney complications Diabetes mellitus mcc insulin use: unspecified rat exterminator insulin use status Qualified Code(s): E11.22 - Type 2 diabetes mellitus with diabetic chronic kidney disease; N18.3 - Chronic kidney disease, stage 3 (moderate) (2) CAD (coronary artery disease) Associated angina: without angina Coronary Disease-Associated Artery/Lesion type: [place] artery [place] vs. transplanted heart: [place] heart Qualified Code (s): I25.10 - Atherosclerotic heart disease of [place] coronary artery without angina pectoris (3) Toe ulcer due to DM Diabetes mellitus type: type 2 Laterality: left Non-pressure ulcer stage: limited to breakdown of skin Qualified Code(s): E11.621 - Type 2 diabetes mellitus with foot ulcer; L97.521 - Non-pressure chronic ulcer of other part of left foot limited to breakdown of skin (4) GERD (gastroesophageal reflux disease) Esophagitis presence: esophagitis presence not specified Qualified Code(s): K21.9 - Gastro-esophageal reflux disease without esophagitis
--- NOTE | 2018-03-12 19:13 | Operative Report ---
DATE OF OPERATION: 03/12/2018 PROCEDURE: Right-sided thoracentesis under sonographic guidance. CONSENT: Informed consent was obtained from the patient herself in writing after indications, potential complications, and alternative managements were discussed with her. She provided her written consent freely, it was witnessed by the nursing staff, and placed in the patient's chart. MONITORING: Throughout the procedure, monitoring was performed by the nurses. Heart rate and blood pressure noninvasively and pulse oximetry. DESCRIPTION OF THE PROCEDURE: The right aspect of the posterior hemithorax was uncovered. The ultrasound probe was used to locate a locule of fluid above the 7th rib midway between the posterior spinal processes and the posterior axillary line. Subsequently, the area was draped and prepared using chlorhexidine prep as was customary. Lidocaine 1% was used to infiltrate the skin and the subcutaneous tissue at the marked location. The anesthetic needle was then inserted perpendicularly to the skin and advanced under suction until pleural fluid was obtained. It was retracted a few millimeters, and another bolus of anesthetic was given immediately deep to the parietal pleura. A 5 mm horizontal skin incision was then made at the marked location. The thoracentesis needle was then inserted and advanced while suction was applied to the attached syringe. As soon as the pleural fluid flashback was noted, the plastic catheter was advanced into the pleural cavity, and the needle was retracted. A total of 1300 mL of clear straw pleural fluid was obtained and was sent for testing. COMPLICATIONS: None apparent. Post procedure bedside sonogram showed no findings of pneumothorax. A post procedure chest x-ray shows near total resolution of pleural fluid and no pneumothorax I attest to the content of the Intraoperative Record and any orders documented therein. Any exceptions are noted below. [facility]
[2018-03-12] MEDS: MIRTAZAPINE TAB 15 MG TAB PO SCH (20:40)
[2018-03-12] MEDS: PRAMIPEXOLE DIHYDROCHLO 0.25 MG TAB PO SCH (20:42)
[2018-03-13] MEDS: LEVOTHYROXINE SODIUM 150 MCG TABLET PO SCH (05:51)
[2018-03-13] MEDS: HEPARIN SOD 5,000 UNIT/0.5 ML VIAL SQ SCH ×3 (05:51→20:47)
[2018-03-13 06:25] LABS: Estimated Average Glucose 194 mg/dl
[2018-03-13] MEDS: INSULIN ASPART 100 UNITS/ML 3 ML PEN SC SCH ×4 (07:58→20:45)
[2018-03-13] MEDS: OXYBUTYNIN CHLORIDE 5 MG TAB PO SCH ×2 (08:01→20:49)
[2018-03-13] MEDS: MAGNESIUM OXIDE 400 MG TAB PO SCH ×2 (08:01→20:48)
[2018-03-13] MEDS: INSULIN GLARGINE SOLOSTAR 100 UNITS/ML 3 ML PEN SC SCH ×2 (08:01→20:47)
[2018-03-13] MEDS: metOLazone 5 MG TABLET PO SCH (08:01)
[2018-03-13] MEDS: CLOPIDOGREL BISULFATE 75 MG TAB PO SCH (08:01)
[2018-03-13] MEDS: CARVEDILOL 6.25 MG TAB PO SCH ×2 (08:01→20:47)
[2018-03-13] MEDS: VENLAFAXINE HCL XR 150 MG CAPXR PO SCH (08:02)
[2018-03-13] MEDS: SACUBITRIL-VALSARTAN 24-26 MG TAB PO SCH ×2 (08:02→20:48)
[2018-03-13] MEDS: CEROVITE ADV FORMULA TAB PO SCH (08:02)
[2018-03-13] MEDS: ASPIRIN 81 MG ECTAB PO SCH (08:02)
[2018-03-13] MEDS: PREGABALIN 150 MG CAP PO SCH ×2 (08:05→20:52)
--- NOTE | 2018-03-13 15:23 | Progress Note ---
DATE: 03/13/2018 Chart reviewed and patient examined SUBJECTIVE: Patient felt much better following the thoracentesis of close to 1300 mL of fluid that was transudative in nature, all felt to be secondary to acute in chronic systolic heart failure. Apparently I had seen her in the past in the clinic and had suggested she undergo nocturnal polysomnography. Because of her difficulties with chronic CHF and other reasons, she has not followed through with that sleep study. Apparently, following the thoracentesis and treatment for decompensated CHF, she is to go to a long-term facility in [place] given her other comorbidities and chronic medical problems. I think as an outpatient, it would benefit her to undergo nocturnal polysomnography, especially it appears that there is great difficulty keeping her out of chronic CHF with her reduced left ventricular ejection fraction. We would be happy to see her in the clinic in followup and arrange for that study as patient may very well benefit from BIPAP with O2 supplementation nocturnally. The left upper lobe ground glass opacity of 1.2 x 1.2 cm is noted and will need to be followed as well.
--- NOTE | 2018-03-13 17:15 | Hospitalist Progress Note ---
Date of Service March 13, 2018 Assessment & Plan (1) Pleural effusion: secondary to decompensated CHF appreciate input form cardiology and Pulm s/p thoracenthesis of > 1 L pt reports of significant improvement of symptom resolution of orthopnea, dyspnea on exertion (2) Acute systolic CHF (congestive heart failure), NYHA class 3: History of ischemic cardiomyopathy with combined systolic and diastolic heart failure, Presented with decompensated CHF with weight gain, dyspnea on exertion, orthopnea appreciate input from cardiology and pulmonology Thoracentesis done with drainage of significant amount of pleural effusion giving symptomatic relief Is allergic to Lasix and sulfa based diuretics Cardiology started on Zaroxolyn and Entresto Continue to monitor volume status (3) Toe ulcer due to DM: Has chronic left foot diabetic toe ulcer Follows with Dr. Donald Ortho consulted (4) Stage III chronic kidney disease: Follow renal function while getting diuresis (5) DM type 2 (diabetes mellitus, type 2): Insulin sliding scale (6) CAD (coronary artery disease): Presented with shortness of breath, dyspnea on exertion secondary to decompensated CHF with biventricular failure Symptoms improved after diuresis/ paracentesis No evidence of acute coronary event Continue all cardiac meds Cardiology consulted, appreciate input (7) Ischemic cardiomyopathy: Severe ischemic cardiomyopathy with biventricular failure Presented with decompensated CHF Volume status improved after diuresis/thoracentesis Cardiology if following Patient started with Entresto Added metolazone for diuresis (8) GERD (gastroesophageal reflux disease): Continue PPI (9) DVT prophylaxis: Subcu heparin (10) Discharge planning issues: Was living with sister who is doing probably PT OT evaluation requested appreciate input referral made to [facility] can be transferred to SNF in next 1-2 days if respiratory status remains stable Social service consult for discharge planning Subjective sitting up chair feels fine , no complain of hypoxia ,no TARIQ no cough or fever or chills Physical Exam 2 Vital Signs (Past 24 Hours): Last Vital Signs Temp 36.3 C L 03/13/18 16:00 Pulse 83 03/13/18 16:00 Resp 18 03/13/18 16:00 BP 97/60 L 03/13/18 16:00 Pulse Ox 100 03/13/18 16:00 Constitutional: WD/WN, vitals as above Eyes: PERRL, conjunctivae normal, anicteric sclerae ENMT: external ear and nose normal, oropharynx normal Neck: trachea midline, no thyromegaly Respiratory: normal respiratory effort; no respiratory distress Auscultation: + diminished lung sounds; no crackles, no rales and no wheezes Cardiovascular: Rate/Rhythm: regular rate and regular rhythm Gastrointestinal (Abdomen): normal bowel sounds, soft, nontender, no hepatosplenomegaly Musculoskeletal: Head/Neck/Chest: normocephalic and head atraumatic Skin: no rashes, warm and dry Neurologic: PERRL, EOMI, accommodation nl, no face palsy, no dysarthria Psychiatric: A+Ox3, euthymic affect _ (1) DM type 2 (diabetes mellitus, type 2) Chronic kidney disease stage: stage 3 (moderate) Diabetes mellitus complication detail: with chronic kidney disease Diabetes mellitus complication status: with kidney complications 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 transplanted heart: [place] heart Qualified Code (s): I25.10 - Atherosclerotic heart disease of [place] coronary artery without angina pectoris (3) Toe ulcer due to DM Diabetes mellitus type: type 2 Laterality: left Non-pressure ulcer stage: limited to breakdown of skin Qualified Code(s): E11.621 - Type 2 diabetes mellitus with foot ulcer; L97.521 - Non-pressure chronic ulcer of other part of left foot limited to breakdown of skin (4) GERD (gastroesophageal reflux disease) Esophagitis presence: esophagitis presence not specified Qualified Code(s): K21.9 - Gastro-esophageal reflux disease without esophagitis
[2018-03-13] MEDS: MIRTAZAPINE TAB 15 MG TAB PO SCH (20:48)
[2018-03-13] MEDS: PRAMIPEXOLE DIHYDROCHLO 0.25 MG TAB PO SCH (20:49)
[2018-03-14] MEDS: LEVOTHYROXINE SODIUM 150 MCG TABLET PO SCH (06:03)
[2018-03-14] MEDS: HEPARIN SOD 5,000 UNIT/0.5 ML VIAL SQ SCH ×3 (06:03→20:07)
[2018-03-14] MEDS: INSULIN ASPART 100 UNITS/ML 3 ML PEN SC SCH ×4 (07:48→20:09)
[2018-03-14] MEDS: CARVEDILOL 6.25 MG TAB PO SCH ×2 (07:50→20:08)
[2018-03-14] MEDS: ASPIRIN 81 MG ECTAB PO SCH (07:51)
[2018-03-14] MEDS: OXYBUTYNIN CHLORIDE 5 MG TAB PO SCH ×2 (07:51→20:08)
[2018-03-14] MEDS: SACUBITRIL-VALSARTAN 24-26 MG TAB PO SCH ×2 (07:51→20:07)
[2018-03-14] MEDS: metOLazone 5 MG TABLET PO SCH (07:52)
[2018-03-14] MEDS: VENLAFAXINE HCL XR 150 MG CAPXR PO SCH (07:52)
[2018-03-14] MEDS: CEROVITE ADV FORMULA TAB PO SCH (07:53)
[2018-03-14] MEDS: MAGNESIUM OXIDE 400 MG TAB PO SCH ×2 (07:53→20:10)
[2018-03-14] MEDS: CLOPIDOGREL BISULFATE 75 MG TAB PO SCH (07:54)
[2018-03-14] MEDS: PREGABALIN 150 MG CAP PO SCH ×2 (07:57→20:18)
[2018-03-14] MEDS: INSULIN GLARGINE SOLOSTAR 100 UNITS/ML 3 ML PEN SC SCH ×2 (07:58→20:09)
--- NOTE | 2018-03-14 13:23 | Hospitalist Progress Note ---
Date of Service March 14, 2018 Assessment & Plan (1) Pleural effusion: CT chest showed small left and moderate right pleural effusions. CT abd/chest showed Fluid overload manifested by bilateral pleural effusions with moderate body wall edema and trace abdominal pelvic ascites. S/P thoracentesis where 1.3L pleural fluid removed Pulmonology on board Clinically improved significantly (2) Acute systolic CHF (congestive heart failure), NYHA class 3: History of ischemic cardiomyopathy with combined systolic and diastolic heart failure, Presented with decompensated CHF with weight gain, dyspnea on exertion, orthopnea Lasix/sulfa allergies S/P thoracentesis done Cardiology on board Starting on Zaroxolyn and Entresto Continue to monitor volume status Stable (3) Toe ulcer due to DM: Has chronic left foot diabetic toe ulcer Follows with Dr. Shabana Jay on board stable (4) Stage III chronic kidney disease: Continue monitor BMP (5) DM type 2 (diabetes mellitus, type 2): Insulin sliding scale Monitor BS (6) CAD (coronary artery disease): Elevated troponin due to CHF decompensated with biventricular failure EKG showed no ischemic changes Troponin tending down On plavix, aspirin and carvedilol Stable (7) Ischemic cardiomyopathy: Severe ischemic cardiomyopathy with biventricular failure Presented with decompensated CHF Volume status improved after diuresis/thoracentesis Cardiology if following Patient started with Entresto On metolazone for diuresis (8) GERD (gastroesophageal reflux disease): Continue PPI (9) DVT prophylaxis: Subcu heparin (10) Discharge planning issues: Waiting for placement to discharge referral made to [facility] Subjective Pt was seen and examined Sitting at the edge of the bed comfortable with no distress Pt said that she feels much better She denies any chest pain, palpitation, dizziness and SOB Physical Exam 2 Vital Signs (Past 24 Hours): Last Vital Signs Temp 36.8 C 03/14/18 12:00 Pulse 70 03/14/18 12:00 Resp 16 03/14/18 12:00 BP 110/56 L 03/14/18 12:00 Pulse Ox 96 03/14/18 12:00 Physical Exam: General- No acute distress Head- atraumatic Eyes- PERRL, EOMI, ENT- oropharynx clear Neck- supple, no JVD Lungs- Diminish breath sound Heart- regular rhythm; no murmur Abdomen- normal bowel sounds, soft Extremities- no calf tenderness, +edema Neuro- alert, oriented x 3; PERRL, EOMI; no facial palsy; no dysarthria Skin- warm & dry _ (1) DM type 2 (diabetes mellitus, type 2) Chronic kidney disease stage: stage 3 (moderate) Diabetes mellitus complication detail: with chronic kidney disease Diabetes mellitus complication status: with kidney complications 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 transplanted heart: [place] heart Qualified Code (s): I25.10 - Atherosclerotic heart disease of [place] coronary artery without angina pectoris (3) Toe ulcer due to DM Diabetes mellitus type: type 2 Laterality: left Non-pressure ulcer stage: limited to breakdown of skin Qualified Code(s): E11.621 - Type 2 diabetes mellitus with foot ulcer; L97.521 - Non-pressure chronic ulcer of other part of left foot limited to breakdown of skin (4) GERD (gastroesophageal reflux disease) Esophagitis presence: esophagitis presence not specified Qualified Code(s): K21.9 - Gastro-esophageal reflux disease without esophagitis
[2018-03-14] MEDS: PRAMIPEXOLE DIHYDROCHLO 0.25 MG TAB PO SCH (20:07)
[2018-03-14] MEDS: MIRTAZAPINE TAB 15 MG TAB PO SCH (20:07)
[2018-03-15] MEDS: LEVALBUTEROL 1.25MG/0.5ML NEB INH PRN (00:11)
[2018-03-15] MEDS: IPRATROPIUM BROMIDE NEB SOLN 0.02% 2.5 ML VIAL INH PRN (00:11)
[2018-03-15] MEDS: LEVOTHYROXINE SODIUM 150 MCG TABLET PO SCH (05:45)
[2018-03-15] MEDS: HEPARIN SOD 5,000 UNIT/0.5 ML VIAL SQ SCH ×3 (05:45→20:44)
[2018-03-15 06:51] LABS: BUN Creatinine Ratio 24.9 (10-20); Calcium 8.8 mg/dl (8.5-10.1); Creatinine Clr Calc Pharmacy 48.1 ml/min; Est GFR (African American) 44.1; Potassium 4.8 mmol/L (3.5-5.1)
[2018-03-15] MEDS: INSULIN ASPART 100 UNITS/ML 3 ML PEN SC SCH ×4 (08:59→20:54)
[2018-03-15] MEDS: CARVEDILOL 6.25 MG TAB PO SCH ×2 (09:00→20:43)
[2018-03-15] MEDS: SACUBITRIL-VALSARTAN 24-26 MG TAB PO SCH ×2 (09:00→20:43)
[2018-03-15] MEDS: ASPIRIN 81 MG ECTAB PO SCH (09:00)
[2018-03-15] MEDS: CLOPIDOGREL BISULFATE 75 MG TAB PO SCH (09:00)
[2018-03-15] MEDS: VENLAFAXINE HCL XR 150 MG CAPXR PO SCH (09:00)
[2018-03-15] MEDS: OXYBUTYNIN CHLORIDE 5 MG TAB PO SCH ×2 (09:01→20:44)
[2018-03-15] MEDS: CEROVITE ADV FORMULA TAB PO SCH (09:01)
[2018-03-15] MEDS: metOLazone 5 MG TABLET PO SCH (09:01)
[2018-03-15] MEDS: MAGNESIUM OXIDE 400 MG TAB PO SCH ×2 (09:01→20:43)
[2018-03-15] MEDS: INSULIN GLARGINE SOLOSTAR 100 UNITS/ML 3 ML PEN SC SCH ×2 (09:02→20:45)
[2018-03-15] MEDS: TRAMADOL HCL 50 MG TABLET PO PRN (09:06)
[2018-03-15] MEDS: PREGABALIN 150 MG CAP PO SCH ×2 (09:07→20:52)
--- NOTE | 2018-03-15 10:41 | Cardiology Progress Note ---
Date of Service March 15, 2018 Assessment & Plan (1) Acute systolic CHF (congestive heart failure), NYHA class 3: Mrs. Marsh is a 67 year old female with a history of Multivessel CAD s/p CABG x 4 Vessels 04/21/2015, Chronic Combined Systolic and Diastolic CHF , Type 2 DM, Hypertension, Dyslipidemia, GERD, COPD, Obesity, KAVIN, and an Ischemic Cardiomyopathy s/p Medtronic Visia AF MRI VR Single Chamber AICD Implantation 12/22/2017 who was admitted to [facility] on 03/11/2018 with Acute on Chronic CHF with bilateral pleural effusions. She underwent thoracentesis with removal of 1.3 L from the chest --and patient had significant improvement in her symptoms thereafter. Patient's heart failure appears to be compensated at this point. -- Continue Coreg 6.25 mg bid. -- Continue Entresto 24/26 bid. Titrate dose as tolerated every 2 weeks. -- Continue Metolazone 5 mg daily. -- Maintain a low sodium heart healthy diet> -- Monitor daily weights. Present on Admission?: Yes (2) Pleural effusion: Much better following thoracentesis. Management as stated under problem # 1. Present on Admission?: Yes (3) CAD (coronary artery disease): Continue the following: -- Coreg 6.25 mg bid. -- Aspirin 81 mg daily. -- Clopidogrel 75 mg daily. -- SL NTG as directed. -- Patient is intolerant of statins. Present on Admission?: Yes Supervising Physician Co-Signing Physician Notes Naif Schafer MD Subjective Mrs. Marsh is a 67 year old female with a history of Multivessel CAD s/p CABG x 4 Vessels 04/21/2015, Chronic Combined Systolic and Diastolic CHF, Type 2 DM, Hypertension, Dyslipidemia, GERD, COPD, Obesity, KAVNI, and an Ischemic Cardiomyopathy s/p Medtronic Visia AF MRI VR Single Chamber AICD Implantation who was admitted to [facility] on 03/11/2018 with Acute on Chronic CHF with bilateral pleural effusions. She underwent thoracentesis with removal of 1.3 L from the chest --and patient had significant improvement in her symptoms thereafter. She offers no complaints at this time. Her breathing is at baseline. She is able to lie down in her bed without orthopnea or PND. She has been up moving around in the room with minimal exertional dyspnea. She denies any exertional chest pain or angina pectoris. She denies any palpitations, tachypalpitations, syncope, or near syncope. She is tolerating the addition of Entresto and Metolazone without adverse side effects. Physical Exam 2 Vital Signs (Past 24 Hours): Last Vital Signs Temp 36.7 C 03/15/18 07:08 Pulse 93 H 03/15/18 08:55 Resp 19 03/15/18 07:08 BP 102/66 03/15/18 08:55 Pulse Ox 92 03/15/18 07:08 Physical Exam: General: Patient in no acute distress. HEENT: Head is atraumatic, normocephalic. EOMs intact. Sclerae anicteric. Facies symmetric. No perioral cyanosis. Neck: No JVD. Carotid upstrokes +2 bilaterally without bruits. JVP is just above the clavicle sitting upright. Chest and Lungs: Markedly diminished breath sounds in extreme bilateral bases. CVS: S1 and S2 are regular without murmurs, gallops, or rubs. PMI is nondisplaced. No lifts, heaves, or thrills. No abdominal aortic or renal bruits. Palpable AICD generator is present in the left subclavian fossa. Abdominal Exam: Bowel sounds present. No masses, organomegaly, or tenderness. Extremities: No clubbing or cyanosis. Trace bipedal and ankle edema bilaterally. Intact radial pulses bilaterally. Neurologic Exam: Patient is awake, alert, and oriented. Pleasant and cooperative. Answers questions appropriately. Speech is clear. Normal movement in all 4 extremities. Gait pattern was not assessed. Results & Data Laboratory Results Laboratory Results - last 24 hr 03/14/18 03/14/18 03/14/18 11:36 16:21 20:06 Sodium Potassium Chloride Carbon Dioxide Anion Gap BUN Creatinine Est Cr Clr Drug Dosing Est GFR ( Amer) Est GFR (Non-Af Amer) BUN/Creatinine Ratio Glucose POC Glucose 139 H 174 H 190 H Calcium 03/15/18 03/15/18 05:54 07:32 Sodium 129 L Potassium 4.8 Chloride 94 L Carbon Dioxide 30 Anion Gap 5.0 BUN 36 H Creatinine 1.44 H Est Cr Clr Drug Dosing 48.1 Est GFR ( Amer) 44.1 Est GFR (Non-Af Amer) 38.0 BUN/Creatinine Ratio 24.9 H Glucose 160 H POC Glucose 157 H Calcium 8.8 Medications Administered Active Medications Generic Name Dose Route Start Last Admin Trade Name Freq PRN Reason Stop Dose Admin Albuterol 2 puffs 03/11/18 22:38 Ventolin Hfa INH 04/10/18 22:37 QID PRN Shortness Of Breath Or Wheezing Aspirin 81 mg 03/12/18 09:00 03/15/18 09:00 Ecotrin PO 04/11/18 08:59 81 mg DAILY MARITZA Administration Carvedilol 6.25 mg 03/12/18 09:00 03/15/18 09:00 Coreg PO 04/11/18 08:59 6.25 mg BID MARITZA Administration Clopidogrel Bisulfate 75 mg 03/12/18 09:00 03/15/18 09:00 Plavix PO 04/11/18 08:59 75 mg DAILY MARITZA Administration Dextrose 25 - 50 ml 03/11/18 22:57 Dextrose 50% IV 04/10/18 22:56 UD PRN Hypoglycemia Protocol Protocol Glucagon 1 mg 03/11/18 22:57 Glucagen SQ 04/10/18 22:56 UD PRN Hypoglycemia Protocol Protocol Glucose 15 - 30 gm 03/11/18 22:57 Glucose 40% PO 04/10/18 22:56 UD PRN Hypoglycemia Protocol Protocol Glucose 4 - 8 tabs 03/11/18 22:57 Dex4 Glucose PO 04/10/18 22:56 UD PRN Hypoglycemia Protocol Protocol Heparin Sodium (Porcine) 5,000 units 03/11/18 22:38 03/15/18 05:45 Heparin Sodium (Porcine) SQ 04/10/18 22:37 5,000 units Q8 MARITZA Administration Insulin Aspart 0 units 03/12/18 07:30 03/15/18 08:59 Novolog Flexpen SC 04/11/18 07:29 5 units ACHS MARITZA Administration Insulin Glargine 5 units 03/11/18 22:38 03/15/18 09:02 Lantus Solostar Pen SC 04/10/18 22:37 5 units BID MARITZA Administration Ipratropium [place] 0.5 mg 03/12/18 01:45 03/15/18 00:11 Atrovent 0.02% 0.5mg/2.5ml INH 04/11/18 01:44 0.5 mg Q4H PRN Administration SOB/WHEEZE Levalbuterol HCl 1.25 mg 03/12/18 01:45 03/15/18 00:11 Xopenex 1.25mg/0.5ml Neb INH 04/11/18 01:44 1.25 mg Q4H PRN Administration SOB/WHEEZE Levothyroxine Sodium 150 mcg 03/12/18 06:30 03/15/18 05:45 Synthroid PO 04/11/18 06:29 150 mcg DAILYBB MARITZA Administration Magnesium Oxide 400 mg 03/12/18 09:00 03/15/18 09:01 Mag-Ox PO 04/11/18 08:59 400 mg BID MARITZA Administration Metolazone 5 mg 03/12/18 12:00 03/15/18 09:01 Zaroxolyn PO 04/11/18 11:59 5 mg QAM MARITZA Administration Mirtazapine 30 mg 03/12/18 21:00 03/14/18 20:07 Remeron PO 04/11/18 20:59 30 mg HS MARITZA Administration Miscellaneous 1 ea 03/12/18 08:00 03/15/18 09:00 Order Awaiting Action N/A 04/11/18 07:59 Not Given QS MARITZA Miscellaneous 15 - 30 gm 03/11/18 22:57 Carbohydrates For Hypoglycemia PO 04/10/18 22:56 UD PRN Hypoglycemia Treatment Multivitamins/Minerals 1 tab 03/12/18 09:00 03/15/18 09:01 Multivitamin W/ Minerals PO 04/11/18 08:59 1 tab DAILY MARITZA Administration Nitroglycerin 0.4 mg 03/11/18 22:38 Nitrostat SL 04/10/18 22:37 UD PRN Chest Pain Ondansetron HCl 4 mg 03/11/18 22:38 Zofran IV 04/10/18 22:37 Q6H PRN Nausea Oxybutynin Chloride 5 mg 03/12/18 09:00 03/15/18 09:01 Ditropan PO 04/11/18 08:59 5 mg BID MARITZA Administration Polyethylene Glycol 17 gm 03/11/18 22:38 Miralax Powder Packet PO 04/10/18 22:37 DAILY PRN Constipation Pramipexole Dihydrochloride 0.75 mg 03/12/18 21:00 03/14/18 20:07 Mirapex PO 04/11/18 20:59 0.75 mg HS MARITZA Administration Pregabalin 300 mg 03/11/18 23:00 03/14/18 20:18 Lyrica PO 04/10/18 22:59 300 mg HS MARITZA Administration Pregabalin 150 mg 03/12/18 09:00 03/15/18 09:07 Lyrica PO 04/11/18 08:59 150 mg QAM MARITZA Administration Sacubitril/Valsartan 1 tab 03/12/18 12:00 03/15/18 09:00 Entresto 24/26mg PO 04/11/18 11:59 1 tab BID MARITZA Administration Tramadol HCl 50 mg 03/11/18 22:38 03/15/18 09:06 Ultram PO 04/10/18 22:37 50 mg Q8H PRN Administration pain Venlafaxine HCl 150 mg 03/12/18 09:00 03/15/18 09:00 Effexor Extended Release PO 04/11/18 08:59 150 mg DAILY MARITZA Administration _ (1) CAD (coronary artery disease) Associated angina: without angina Coronary Disease-Associated Artery/Lesion type: [place] artery [place] vs. transplanted heart: [place] heart Qualified Code (s): I25.10 - Atherosclerotic heart disease of [place] coronary artery without angina pectoris
--- NOTE | 2018-03-15 12:09 | Hospitalist Progress Note ---
Date of Service March 15, 2018 Assessment & Plan (1) Pleural effusion: CT chest showed small left and moderate right pleural effusions. CT abd/chest showed Fluid overload manifested by bilateral pleural effusions with moderate body wall edema and trace abdominal pelvic ascites. S/P thoracentesis where 1.3L pleural fluid removed Pulmonology on board Clinically improved significantly Stable (2) Acute systolic CHF (congestive heart failure), NYHA class 3: History of ischemic cardiomyopathy with combined systolic and diastolic heart failure, Presented with decompensated CHF with weight gain, dyspnea on exertion, orthopnea Lasix/sulfa allergies S/P thoracentesis done Cardiology on board Starting on Zaroxolyn and Entresto Continue to monitor volume status 03/15 Starting on Entresto and Zaroxolyn during this admission Creatinine increased to 1.44 and Na dropped to 129 Case discussed with Cardio team about to hold the entresto and recommended to continue Entresto Will monitor BMP closely (3) Hyponatremia: Possible related to diuretic (Zaroxolyn) and Entresto Na dropped 129 Monitor BMP (4) Toe ulcer due to DM: Has chronic left foot diabetic toe ulcer Follows with Dr. Shabana Jay on board stable (5) BLANCA (acute kidney injury): (6) Stage III chronic kidney disease: Mostly related to diuretic and Entresto Creatinine increased to 1.44 case discussed with cardio and recommended to continue current management Check BMP later (7) DM type 2 (diabetes mellitus, type 2): Insulin sliding scale Monitor BS (8) CAD (coronary artery disease): Elevated troponin due to CHF decompensated with biventricular failure EKG showed no ischemic changes Troponin tending down On plavix, aspirin and carvedilol Stable (9) Ischemic cardiomyopathy: Severe ischemic cardiomyopathy with biventricular failure Presented with decompensated CHF Volume status improved after diuresis/thoracentesis Cardiology if following Patient started with Entresto On metolazone for diuresis (10) GERD (gastroesophageal reflux disease): Continue PPI (11) DVT prophylaxis: Subcu heparin (12) Discharge planning issues: Waiting for placement to discharge referral made to [facility] Subjective Pt was seen and examined Sitting in chair with no distress Pt said that her breathing feels ok She said that she does have episode of dry cough sometimes Denies any chest pain, palpitation, dizziness and SOB Physical Exam 2 Vital Signs (Past 24 Hours): Last Vital Signs Temp 36.7 C 03/15/18 07:08 Pulse 93 H 03/15/18 08:55 Resp 19 03/15/18 07:08 BP 102/66 03/15/18 08:55 Pulse Ox 92 03/15/18 07:08 Physical Exam: General- No acute distress Head- atraumatic Eyes- PERRL, EOMI, ENT- oropharynx clear Neck- supple, no JVD Lungs- Diminish breath sound Heart- regular rhythm; no murmur Abdomen- normal bowel sounds, soft Extremities- no calf tenderness, +edema Neuro- alert, oriented x 3; PERRL, EOMI; no facial palsy; no dysarthria Skin- warm & dry _ (1) DM type 2 (diabetes mellitus, type 2) Chronic kidney disease stage: stage 3 (moderate) Diabetes mellitus complication detail: with chronic kidney disease Diabetes mellitus complication status: with kidney complications 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 transplanted heart: [place] heart Qualified Code (s): I25.10 - Atherosclerotic heart disease of [place] coronary artery without angina pectoris (3) Toe ulcer due to DM Diabetes mellitus type: type 2 Laterality: left Non-pressure ulcer stage: limited to breakdown of skin Qualified Code(s): E11.621 - Type 2 diabetes mellitus with foot ulcer; L97.521 - Non-pressure chronic ulcer of other part of left foot limited to breakdown of skin (4) GERD (gastroesophageal reflux disease) Esophagitis presence: esophagitis presence not specified Qualified Code(s): K21.9 - Gastro-esophageal reflux disease without esophagitis
[2018-03-15] MEDS: PRAMIPEXOLE DIHYDROCHLO 0.25 MG TAB PO SCH (20:43)
[2018-03-15] MEDS: MIRTAZAPINE TAB 15 MG TAB PO SCH (20:43)
[2018-03-16] MEDS: HEPARIN SOD 5,000 UNIT/0.5 ML VIAL SQ SCH ×3 (06:10→21:23)
[2018-03-16] MEDS: LEVOTHYROXINE SODIUM 150 MCG TABLET PO SCH (06:10)
[2018-03-16 08:46] LABS: BUN Creatinine Ratio 27.1 (10-20); Calcium 9.3 mg/dl (8.5-10.1); Creatinine Clr Calc Pharmacy 45.3 ml/min; Est GFR (African American) 39.7; Est GFR (Non-African American) 34.2; Potassium 4.9 mmol/L (3.5-5.1)
[2018-03-16] MEDS: INSULIN ASPART 100 UNITS/ML 3 ML PEN SC SCH ×4 (08:52→21:24)
[2018-03-16] MEDS: OXYBUTYNIN CHLORIDE 5 MG TAB PO SCH ×2 (08:53→20:10)
[2018-03-16] MEDS: MAGNESIUM OXIDE 400 MG TAB PO SCH ×2 (08:53→20:10)
[2018-03-16] MEDS: CLOPIDOGREL BISULFATE 75 MG TAB PO SCH (08:53)
[2018-03-16] MEDS: VENLAFAXINE HCL XR 150 MG CAPXR PO SCH (08:53)
[2018-03-16] MEDS: CARVEDILOL 6.25 MG TAB PO SCH ×2 (08:53→20:10)
[2018-03-16] MEDS: SACUBITRIL-VALSARTAN 24-26 MG TAB PO SCH ×2 (08:53→20:11)
[2018-03-16] MEDS: CEROVITE ADV FORMULA TAB PO SCH (08:53)
[2018-03-16] MEDS: ASPIRIN 81 MG ECTAB PO SCH (08:53)
[2018-03-16] MEDS: INSULIN GLARGINE SOLOSTAR 100 UNITS/ML 3 ML PEN SC SCH ×2 (08:54→21:25)
[2018-03-16] MEDS: metOLazone 5 MG TABLET PO SCH (08:54)
[2018-03-16] MEDS: PREGABALIN 150 MG CAP PO SCH ×2 (09:08→20:15)
--- NOTE | 2018-03-16 11:00 | Hospitalist Progress Note ---
Date of Service March 16, 2018 Assessment & Plan (1) Pleural effusion: CT chest showed small left and moderate right pleural effusions. CT abd/chest showed Fluid overload manifested by bilateral pleural effusions with moderate body wall edema and trace abdominal pelvic ascites. S/P thoracentesis where 1.3L pleural fluid removed Pulmonology on board Clinically improved significantly Stable (2) Acute systolic CHF (congestive heart failure), NYHA class 3: History of ischemic cardiomyopathy with combined systolic and diastolic heart failure, Presented with decompensated CHF with weight gain, dyspnea on exertion, orthopnea Lasix/sulfa allergies S/P thoracentesis done Cardiology on board Starting on Zaroxolyn and Entresto Continue to monitor volume status 03/16 Clinically improved Was strating on Entresto and Zaroxolyn Creatinine worsening today from 1.4 to 1.5 and Na dropped to 129--->126 today Case discussed today with Cardio Dr. Bo about to hold the entresto and Zaroxolyn Cardio recommended to continue Entresto for now and hold the Zaroxolyn Will monitor BMP closely (3) Hyponatremia: Mostly related to diuretic (Zaroxolyn) and Entresto Na dropped 129-->126 today Nephrology consult Zaroxolyn on hold (already received morning dose Monitor BMP (4) Toe ulcer due to DM: Has chronic left foot diabetic toe ulcer Follows with Dr. Donald Ortho on board stable (5) BLANCA (acute kidney injury): (6) Stage III chronic kidney disease: Mostly related to diuretic and Entresto Creatinine worsening to 1.5 case discussed with cardio and recommended to continue Entresto Check BMP later (7) DM type 2 (diabetes mellitus, type 2): Insulin sliding scale Monitor BS (8) CAD (coronary artery disease): Elevated troponin due to CHF decompensated with biventricular failure EKG showed no ischemic changes Troponin tending down On plavix, aspirin and carvedilol Was starting on Entresto Stable (9) Ischemic cardiomyopathy: Severe ischemic cardiomyopathy with biventricular failure Presented with decompensated CHF Volume status improved after diuresis/thoracentesis Cardiology if following Patient started with Entresto On metolazone for diuresis (10) GERD (gastroesophageal reflux disease): Continue PPI (11) DVT prophylaxis: Subcu heparin (12) Discharge planning issues: Waiting for placement to discharge referral made to [facility] Pt was seen and examined Lying in bed with no distress Pt said that she slept well last night Denies any chest pain, palpitation, dizziness and SOB Physical Exam 2 Vital Signs (Past 24 Hours): Last Vital Signs Temp 36.5 C 03/16/18 04:14 Pulse 81 03/16/18 04:14 Resp 19 03/16/18 04:14 BP 111/75 03/16/18 04:14 Pulse Ox 95 03/16/18 04:14 Physical Exam: General- No acute distress Head- atraumatic Eyes- PERRL, EOMI, ENT- oropharynx clear Neck- supple, no JVD Lungs- Diminish breath sound Heart- regular rhythm; no murmur Abdomen- normal bowel sounds, soft Extremities- no calf tenderness, +edema Neuro- alert, oriented x 3; PERRL, EOMI; no facial palsy; no dysarthria Skin- warm & dry _ (1) DM type 2 (diabetes mellitus, type 2) Chronic kidney disease stage: stage 3 (moderate) Diabetes mellitus complication detail: with chronic kidney disease Diabetes mellitus complication status: with kidney complications 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 transplanted heart: [place] heart Qualified Code (s): I25.10 - Atherosclerotic heart disease of [place] coronary artery without angina pectoris (3) Toe ulcer due to DM Diabetes mellitus type: type 2 Laterality: left Non-pressure ulcer stage: limited to breakdown of skin Qualified Code(s): E11.621 - Type 2 diabetes mellitus with foot ulcer; L97.521 - Non-pressure chronic ulcer of other part of left foot limited to breakdown of skin (4) GERD (gastroesophageal reflux disease) Esophagitis presence: esophagitis presence not specified Qualified Code(s): K21.9 - Gastro-esophageal reflux disease without esophagitis
[2018-03-16] MEDS: TRAMADOL HCL 50 MG TABLET PO PRN (12:57)
[2018-03-16 16:34] LABS: BUN Creatinine Ratio 28.6 (10-20); Calcium 9.2 mg/dl (8.5-10.1); Creatinine Clr Calc Pharmacy 48.4 ml/min; Est GFR (Non-African American) 37.1; Potassium 4.8 mmol/L (3.5-5.1)
[2018-03-16] MEDS: MIRTAZAPINE TAB 15 MG TAB PO SCH (20:11)
[2018-03-16] MEDS: PRAMIPEXOLE DIHYDROCHLO 0.25 MG TAB PO SCH (20:12)
[2018-03-17] MEDS: LEVOTHYROXINE SODIUM 150 MCG TABLET PO SCH (05:52)
[2018-03-17] MEDS: HEPARIN SOD 5,000 UNIT/0.5 ML VIAL SQ SCH ×3 (05:52→20:23)
[2018-03-17] MEDS: CARVEDILOL 6.25 MG TAB PO SCH (07:52)
[2018-03-17] MEDS: MAGNESIUM OXIDE 400 MG TAB PO SCH ×2 (07:52→20:18)
[2018-03-17] MEDS: VENLAFAXINE HCL XR 150 MG CAPXR PO SCH (07:53)
[2018-03-17] MEDS: CLOPIDOGREL BISULFATE 75 MG TAB PO SCH (07:53)
[2018-03-17] MEDS: ASPIRIN 81 MG ECTAB PO SCH (07:53)
[2018-03-17] MEDS: OXYBUTYNIN CHLORIDE 5 MG TAB PO SCH ×2 (07:53→20:23)
[2018-03-17] MEDS: CEROVITE ADV FORMULA TAB PO SCH (07:53)
[2018-03-17] MEDS: SACUBITRIL-VALSARTAN 24-26 MG TAB PO SCH (07:53)
[2018-03-17] MEDS: TRAMADOL HCL 50 MG TABLET PO PRN (07:57)
[2018-03-17] MEDS: PREGABALIN 150 MG CAP PO SCH ×2 (07:58→20:30)
[2018-03-17] MEDS: INSULIN GLARGINE SOLOSTAR 100 UNITS/ML 3 ML PEN SC SCH ×2 (08:00→20:19)
[2018-03-17] MEDS: INSULIN ASPART 100 UNITS/ML 3 ML PEN SC SCH ×4 (08:01→20:20)
[2018-03-17 08:28] LABS: BUN Creatinine Ratio 28.1 (10-20); Calcium 9.1 mg/dl (8.5-10.1); Creatinine Clr Calc Pharmacy 45.3 ml/min; Est GFR (African American) 39.7; Est GFR (Non-African American) 34.2; Potassium 5.1 mmol/L (3.5-5.1)
--- NOTE | 2018-03-17 10:28 | Nephrology Consultation ---
Date of Consultation March 17, 2018 Assessment & Plan (1) Hyponatremia: -- Weight is up 7 kg since last hospitalization (discharge weight 104kg 02/12) -- Patient appears clinically volume overloaded -- Will check serum & urine osmolality -- Stop Thiazide diuretics -- Start Ethacrynic Acid 50 mg IV daily x 3 days -- Monitor volume status and serum sodium (2) Acute kidney injury superimposed on CKD: -- Elevated creatinine related to biventricular heart failure in the setting of ARB therapy. Monitor for now. If creatinine continues to rise consider stopping Entresto -- Urine sediment is acellular -- Will order UPCR and check serum albumin level -- Abdominal CT 03/11/18 with bilateral renal cortical scarring. No hydronephrosis (3) Chronic combined systolic (congestive) and diastolic (congestive) heart failure: -- Consider repeat echocardiogram -- Will start Ethacrynic Acid -- Low sodium diet -- Await further Cardiology input (4) DM type 2 (diabetes mellitus, type 2): History of Present Illness Reason for Consultation: Hyponatremia, acute on CKD Attending Physician: Jelly Murray MD History of Present Illness Mrs. Marsh is a 67 year old white female who is seen at the request of Dr. Murray for evaluation of hyponatremia. Medical records in the EMR were reviewed and are summarized as follows: Mrs. Marsh has an ICM w/ LVEF ~ 25 % and is s/p AICD. She suffers from obesity, pulmonary HTN, COPD, KAVIN, AODM and PVD. Mrs. Marsh reports a h/o anaphylaxis to Furosemide and ELADIO inhibitors. She tolerated Ethacrynic Acid poorly due to nausea. Mrs. Marsh was admitted to [facility] 03/11/18 w/ dyspnea, tense LE swelling and a 7 kg weight gain. Evaluation revealed the presence of abdominal ascites and bilateral pleural effusions. Mrs. Marsh underwent R thoracentesis . She has been started on Zaroxolyn as diuretic therapy. Entresto has been added due to her heart failure. Baseline creatinine has been 1.1 - 1.3. This has since risen to 1.5. Nephrology consultation is requested due to hyponatremia and acute on CKD. Allergies Allergy/AdvReac Type Severity Reaction Status Date / Time clindamycin Allergy Severe RASH, Verified 03/11/18 18:13 DELUSIONAL, CONVULSIONS Egg Derived Allergy Severe ANAPHYLAXIS Verified 03/11/18 18:13 furosemide Allergy Severe ANAPHYLAXIS Verified 03/11/18 18:13 rosuvastatin Allergy Severe LEG Unverified 03/11/18 18:13 WEAKNESS simvastatin Allergy Severe LEG Unverified 03/11/18 18:13 WEAKNESS Bactrim Allergy Intermediate RASH Verified 04/13/17 16:00 sulfamethoxazole Allergy Intermediate RASH Verified 03/11/18 18:13 trimethoprim Allergy Intermediate RASH Verified 03/11/18 18:13 amoxicillin Allergy Unknown . Verified 03/11/18 18:13 atorvastatin Allergy Unknown acute Verified 03/11/18 18:13 renal failure clavulanic acid Allergy Unknown . Verified 03/11/18 18:13 egg Allergy Unknown _ Verified 03/11/18 18:13 latex Allergy Unknown RASH Verified 03/11/18 18:13 Penicillins Allergy Unknown unknown Verified 03/11/18 18:13 triamcinolone Allergy Unknown RASH Verified 03/11/18 18:13 nickel Allergy Redness of Verified 03/11/18 18:13 Skin capsaicin AdvReac Severe SKIN Verified 03/11/18 18:13 SLOTHED FROM HEEL diclofenac AdvReac Severe SKIN Verified 03/11/18 18:13 SLOTHED FROM HEEL Diclopak AdvReac Severe SKIN Verified 04/13/17 16:00 SLOTHED FROM HEEL isopropyl alcohol AdvReac Severe SKIN Verified 03/11/18 18:13 SLOTHED FROM HEEL propylene glycol AdvReac Severe SKIN Verified 03/11/18 18:13 SLOTHED FROM HEEL acetaminophen AdvReac Mild VOMITING Verified 03/11/18 18:13 Home Medications Home Medications Medication Instructions Recorded Confirmed Type albuterol sulfate 2 puff INHALATION QID PRN 02/18/18 03/11/18 History aspirin [Aspir-81] 81 mg PO DAILY 02/18/18 03/11/18 History carvedilol 6.25 mg PO BID 02/18/18 03/11/18 History clopidogrel 75 mg PO DAILY 02/18/18 03/11/18 History dulaglutide 0.75 mg SUBCUT WK 02/18/18 03/11/18 History econazole 1 applic TOPICAL UD PRN 02/18/18 03/11/18 History ergocalciferol (vitamin D2) 50,000 unit PO WK 02/18/18 03/11/18 History fluticasone-vilanterol 1 puff INHALATION DAILY 02/18/18 03/11/18 History levothyroxine 150 mcg PO DAILY 02/18/18 03/11/18 History magnesium oxide 400 mg PO BID 02/18/18 03/11/18 History metformin 1,000 mg PO DAILY 02/18/18 03/11/18 History mirtazapine 30 mg PO HS 02/18/18 03/11/18 History mfrszuoxijdg-gwlkbrpm-ppgpwd 1 tab PO DAILY 02/18/18 03/11/18 History [Multivitamin 50 Plus] pramipexole 0.75 mg PO HS 02/18/18 03/11/18 History pregabalin [Lyrica] 150 mg PO QAM 02/18/18 03/11/18 History pregabalin [Lyrica] 300 mg PO HS 02/18/18 03/11/18 History saxagliptin 5 mg PO DAILY 02/18/18 03/11/18 History venlafaxine 150 mg PO DAILY 02/18/18 03/11/18 History hydrochlorothiazide 25 mg PO BID 30 Days #60 tab 02/22/18 03/11/18 Rx oxybutynin chloride 5 mg tablet 5 mg PO BID tab 03/01/18 03/11/18 History tramadol 50 mg tablet 50 mg PO Q8H PRN tab 03/01/18 03/11/18 History Patient History Medical History 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) Ischemic cardiomyopathy (Chronic) Hyperlipidemia (Chronic) GERD (gastroesophageal reflux disease) (Chronic) Systolic congestive heart failure Family History Father Heart attack Social History Smoking Status: Former smoker (QUIT 1994) Review of Systems Constitutional: no fever Respiratory: + dyspnea Cardiovascular: + edema; no chest pain Gastrointestinal: no abdominal pain, no nausea and no vomiting Physical Exam 2 Vital Signs (Past 24 Hours): Last Vital Signs Temp 36.4 C L 03/17/18 06:53 Pulse 84 03/17/18 06:53 Resp 18 03/17/18 06:53 BP 111/63 03/17/18 06:53 Pulse Ox 93 03/17/18 06:53 Constitutional: + ill appearing Eyes: PERRL, conjunctivae normal, anicteric sclerae Neck: trachea midline Respiratory: Auscultation: lungs clear to auscultation bilaterally ( diminished at L base) Cardiovascular: Rate/Rhythm: regular rate and regular rhythm Extremities: + edema (tense bilateral LE edema) Gastrointestinal (Abdomen): Percussion/Palpation: abdomen soft; abdomen nontender (obese) Results & Data Laboratory Results Laboratory Tests 03/12/18 03/12/18 03/17/18 00:50 05:15 07:46 WBC 7.05 Hgb 11.3 L Hct 36.2 L Plt Count 196 Sodium 125 L Potassium 5.1 Chloride 88 L Carbon Dioxide 28 BUN 44 H Creatinine 1.57 H Glucose 160 H Urine Color Yellow Urine Appearance Clear Urine pH 5.0 Ur Specific [place] > 1.045 H Urine Protein 4+ H Urine Glucose (UA) Negative Urine Ketones Negative Urine Blood 1+ H Urine Nitrite Negative Ur Leukocyte Esterase Negative Urine WBC (Auto) 1-5 Urine RBC (Auto) 0-4 U Epithel Cells (Auto) 20-30 H Urine Bacteria (Auto) Negative _ (1) DM type 2 (diabetes mellitus, type 2) Diabetes mellitus alf insulin use: unspecified rat exterminator insulin use status Diabetes mellitus complication status: with kidney complications Diabetes mellitus complication detail: with chronic kidney disease Diabetic retinopathy severity: Proliferative retinopathy type: Diabetes mellitus macular edema: Laterality: Chronic kidney disease stage: stage 3 (moderate) Qualified Code(s): E11.22 - Type 2 diabetes mellitus with diabetic chronic kidney disease; N18.3 - Chronic kidney disease, stage 3 (moderate)
[2018-03-17] MEDS ORDERED: ETHACRYNATE SOD FOR INJ 50 MG VIAL IV SCH (10:30)
[2018-03-17] MEDS ORDERED: SODIUM CHLORIDE 0.9% IV SCH (11:30)
[2018-03-17] MEDS ORDERED: [UNRECOGNIZED DRUG - OTHER] IV SCH (11:30)
--- NOTE | 2018-03-17 14:59 | Orthopedic Progress Note ---
Date of Service March 17, 2018 Assessment & Plan (1) Toe ulcer due to DM: Left 2nd toe, distal tip Plan: Continue dressing changes. Discussed with patient that we may need to have a CT done of the left foot to r/ o osteomyelitis of the distal phalanx of the second toe. She is unable to have an MRI secondary to a pacemaker. At some point, the patient will need to have 2nd, 3rd, and 4th toe DuVries arthroplasties of the PIP joints, 2nd/3rd/4th extensor lengthenings and flexor tenotomies, possible 1st IP joint cheilectomy. She may have this done as an outpatient. F/U with Dr. Donald's clinic upon d/c and we'll proceed with 2nd toe workup and discussion of subsequent surgical procedures. (2) Acquired claw toe of left foot: Subjective Patient seen in for left 2nd toe ulceration at the distal tip of the toe. Overall, doing well. No significant complaints. Has been being seen by wound care for daily dressing changes. States she had been scheduled to see Dr. Donald as an outpatient but there was an issue with a balance she had. Would like to be seen for definitive tx for the toes on the left foot to prevent ulceration in the future and avoid more possible amputations. Physical Exam 2 Vital Signs (Past 24 Hours): Last Vital Signs Temp 36.6 C 03/17/18 11:00 Pulse 76 03/17/18 11:00 Resp 20 03/17/18 11:00 BP 102/59 L 03/17/18 11:00 Pulse Ox 99 03/17/18 11:00 Constitutional: WD/WN, vitals as above no acute distress Musculoskeletal: Left foot: the 5th toe has been amputated. There is clawing of the 2nd, 3rd, and 4th toes. There is a large exostosis of the 1st IP joint with mild clawing. The distal tip of the 2nd toe has an ulceration. There is no erythema. Minimal serous drainage on the dressing. Psychiatric: A+Ox3, euthymic affect Results & Data Diagnostic Findings LEFT FOOT 2 VIEWS CLINICAL HISTORY: Second toe ulceration. FINDINGS: AP and lateral views of the left foot are compared to study dated . The skeletal structures are osteopenic. No acute fracture is seen. There is no bony erosion or periostitis typical in appearance for osteomyelitis. There has been amputation of the fifth toe at the level of the metatarsophalangeal joint. There is chronic posttraumatic deformity of the second and fifth metatarsals. Advanced osteoarthritic change is seen at the first interphalangeal joint. Mild arthritic change is seen at the first metatarsophalangeal joint. There are large dorsal and plantar calcaneal enthesophytes. Mild soft tissue edema is noted in the forefoot. IMPRESSION: 1. Soft tissue edema with no acute bony abnormality identified. 2. Osteopenia with degenerative, chronic posttraumatic, and postoperative changes as above. 3. Large heel spurs. _ (1) Toe ulcer due to DM Diabetes mellitus type: type 2 Laterality: left Non-pressure ulcer stage: limited to breakdown of skin Qualified Code(s): E11.621 - Type 2 diabetes mellitus with foot ulcer; L97.521 - Non-pressure chronic ulcer of other part of left foot limited to breakdown of skin
--- NOTE | 2018-03-17 18:44 | Hospitalist Progress Note ---
Date of Service March 17, 2018 Assessment & Plan (1) Pleural effusion: CT chest showed small left and moderate right pleural effusions. CT abd/chest showed Fluid overload manifested by bilateral pleural effusions with moderate body wall edema and trace abdominal pelvic ascites. S/P thoracentesis where 1.3L pleural fluid removed Pulmonology on board Clinically improved significantly Stable (2) Acute systolic CHF (congestive heart failure), NYHA class 3: History of ischemic cardiomyopathy with combined systolic and diastolic heart failure, Presented with decompensated CHF with weight gain, dyspnea on exertion, orthopnea Lasix/sulfa allergies S/P thoracentesis done Cardiology on board Starting on Zaroxolyn and Entresto Continue to monitor volume status 03/17 Clinically improved Was starting on Entresto and Zaroxolyn Creatinine worsening today from 1.4 to 1.5 and Na dropped to 129--->126-->125 today Case discussed today with Cardio Dr. Bo yesterday about to hold the entresto and Zaroxolyn Cardio recommended to continue Entresto for now and hold the Zaroxolyn ECHO done today showed no wall motion abnormality, EF 55-60 % Will hold tonight dose of carvedilol and Entresto due to low BP (3) Hypotension: Will hold carvedilol and Entresto for tonight Monitor BP closely (4) Hyponatremia: Mostly related to diuretic (Zaroxolyn) and Entresto Na dropped 129-->126--> 125 today Nephrology consult Zaroxolyn on hold Starting on Ethacrynate by nephrox 3 days Monitor BMP (5) Toe ulcer due to DM: Has chronic left foot diabetic toe ulcer Follows with Dr. Donald outpatient for Ortho on board stable (6) BLANCA (acute kidney injury): (7) Stage III chronic kidney disease: Mostly related to diuretic and Entresto Creatinine 1.5 today case discussed with cardio and recommended to continue Entresto Check BMP later (8) DM type 2 (diabetes mellitus, type 2): Insulin sliding scale Monitor BS (9) CAD (coronary artery disease): Elevated troponin due to CHF decompensated with biventricular failure EKG showed no ischemic changes Troponin tending down On plavix, aspirin and Will hold carvedilol and entresto due to low BP Stable (10) Ischemic cardiomyopathy: Severe ischemic cardiomyopathy with biventricular failure Presented with decompensated CHF Volume status improved after diuresis/thoracentesis Metolazone on hold (11) GERD (gastroesophageal reflux disease): Continue PPI (12) DVT prophylaxis: Subcu heparin (13) Discharge planning issues: Waiting for placement to discharge referral made to [facility] Pt was seen and examined Lying in bed with no distress Physical Exam 2 Vital Signs (Past 24 Hours): Last Vital Signs Temp 36.5 C 03/17/18 16:03 Pulse 75 03/17/18 16:03 Resp 16 03/17/18 16:03 BP 84/52 L 03/17/18 16:03 Pulse Ox 95 03/17/18 16:03 Physical Exam: General- No acute distress Head- atraumatic Eyes- PERRL, EOMI, ENT- oropharynx clear Neck- supple, no JVD Lungs- Diminish breath sound Heart- regular rhythm; no murmur Abdomen- normal bowel sounds, soft Extremities- no calf tenderness, +edema Neuro- alert, oriented x 3; PERRL, EOMI; no facial palsy; no dysarthria Skin- warm & dry _ (1) DM type 2 (diabetes mellitus, type 2) Chronic kidney disease stage: stage 3 (moderate) Diabetes mellitus complication detail: with chronic kidney disease Diabetes mellitus complication status: with kidney complications Diabetes mellitus skilled nursing insulin use: unspecified skilled nursing insulin use status Diabetes mellitus macular edema: Diabetic retinopathy severity: Laterality: Proliferative retinopathy type: Qualified Code(s): E11.22 - Type 2 diabetes mellitus with diabetic chronic kidney disease; N18.3 - Chronic kidney disease, stage 3 ( moderate) (2) CAD (coronary artery disease) Associated angina: without angina Coronary Disease-Associated Artery/Lesion type: [place] artery [place] vs. transplanted heart: [place] heart Qualified Code (s): I25.10 - Atherosclerotic heart disease of [place] coronary artery without angina pectoris (3) Toe ulcer due to DM Diabetes mellitus type: type 2 Laterality: left Non-pressure ulcer stage: limited to breakdown of skin Qualified Code(s): E11.621 - Type 2 diabetes mellitus with foot ulcer; L97.521 - Non-pressure chronic ulcer of other part of left foot limited to breakdown of skin (4) GERD (gastroesophageal reflux disease) Esophagitis presence: esophagitis presence not specified Qualified Code(s): K21.9 - Gastro-esophageal reflux disease without esophagitis
[2018-03-17] MEDS: MIRTAZAPINE TAB 15 MG TAB PO SCH (20:17)
[2018-03-17] MEDS: PRAMIPEXOLE DIHYDROCHLO 0.25 MG TAB PO SCH (20:18)
[2018-03-18] MEDS: LEVOTHYROXINE SODIUM 150 MCG TABLET PO SCH (05:52)
[2018-03-18] MEDS: HEPARIN SOD 5,000 UNIT/0.5 ML VIAL SQ SCH ×3 (05:52→20:41)
[2018-03-18 06:30] LABS: BUN Creatinine Ratio 34.3 (10-20); Calcium 8.8 mg/dl (8.5-10.1); Creatinine Clr Calc Pharmacy 48.7 ml/min; Est GFR (African American) 43.3; Est GFR (Non-African American) 37.4; Potassium 5.1 mmol/L (3.5-5.1)
[2018-03-18] MEDS: INSULIN ASPART 100 UNITS/ML 3 ML PEN SC SCH ×4 (07:45→20:41)
[2018-03-18] MEDS: OXYBUTYNIN CHLORIDE 5 MG TAB PO SCH ×2 (09:33→20:35)
[2018-03-18] MEDS: VENLAFAXINE HCL XR 150 MG CAPXR PO SCH (09:33)
[2018-03-18] MEDS: ASPIRIN 81 MG ECTAB PO SCH (09:33)
[2018-03-18] MEDS: CEROVITE ADV FORMULA TAB PO SCH (09:34)
[2018-03-18] MEDS: INSULIN GLARGINE SOLOSTAR 100 UNITS/ML 3 ML PEN SC SCH ×2 (09:34→20:39)
[2018-03-18] MEDS: MAGNESIUM OXIDE 400 MG TAB PO SCH ×2 (09:34→20:40)
[2018-03-18] MEDS: CLOPIDOGREL BISULFATE 75 MG TAB PO SCH (09:34)
[2018-03-18] MEDS: PREGABALIN 150 MG CAP PO SCH ×2 (09:43→20:49)
[2018-03-18] MEDS: [UNRECOGNIZED DRUG - OTHER] IV SCH ×2 (10:25→16:49)
[2018-03-18] MEDS: SODIUM CHLORIDE 0.9% IV SCH ×2 (10:25→16:49)
--- NOTE | 2018-03-18 10:53 | Nephrology Progress Note ---
Date of Service March 18, 2018 Assessment & Plan (1) Hyponatremia: -- Hypervolemic -- Stop Thiazide diuretics -- Continue diuretics to encourage net negative fluid balance -- Check AM cortisol level -- Daily free water restriction to 1 L -- Increase Ethacrynic acid to 50 mg twice daily x 3 days -- Document I/O's and daily metabolic profile (2) Acute kidney injury superimposed on CKD: -- Creatinine stable -- UOP remains reduced -- Low K diet -- Urine sediment is acellular -- UA notable for 4+ protein, negative for protein in January. Urine microscopy acellular. Will complete 24 hour urine for protein -- Abdominal CT 03/11/18 with bilateral renal cortical scarring. No hydronephrosis (3) Chronic combined systolic (congestive) and diastolic (congestive) heart failure: -- Ethacrynic Acid to encourage negative fluid balance -- Discuss consideration for holding Entresto with cardiology (relative hypotension and increased serum potassium are barriers to using K sparing diuretics in the future) -- If negative fluid balance cannot be obtained with Ethacrynate, may consider Allergy consultation regarding safety of other loop diuretic use (4) DM type 2 (diabetes mellitus, type 2): Subjective No acute events overnight. Unfortunately, urine output remains reduced. Claudia has not experienced any improvement in edema. She remains weak. She denies dyspnea at rest. She denies chest pain or palpitations. Review of Systems All systems reviewed & are unremarkable except as noted in HPI & below Physical Exam 2 Vital Signs (Past 24 Hours): Last Vital Signs Temp 37.1 C 03/18/18 08:00 Pulse 109 H 03/18/18 08:00 Resp 22 03/18/18 08:00 BP 98/60 L 03/18/18 08:00 Pulse Ox 98 03/18/18 08:00 Constitutional: well developed and + ill appearing Eyes: PERRL, conjunctivae normal, anicteric sclerae ENMT: external ear and nose normal, oropharynx normal Neck: trachea midline Respiratory: Auscultation: lungs clear to auscultation bilaterally ( diminished at L base) Cardiovascular: Rate/Rhythm: regular rate and regular rhythm Extremities: + edema (tense bilateral LE edema) Gastrointestinal (Abdomen): Percussion/Palpation: abdomen soft; abdomen nontender (obese) Musculoskeletal: Extremities: no cyanosis and no clubbing Skin: no rashes, warm and dry Neurologic: Motor/Sensory: no tremor and no asterixis Results & Data Laboratory Results Laboratory Results - last 24 hr 03/17/18 03/17/18 03/17/18 10:41 11:35 16:24 Sodium Potassium Chloride Carbon Dioxide Anion Gap BUN Creatinine Est Cr Clr Drug Dosing Est GFR ( Amer) Est GFR (Non-Af Amer) BUN/Creatinine Ratio Glucose POC Glucose 248 H 112 H Osmolality 278 L Calcium 03/17/18 03/18/18 03/18/18 20:11 05:42 07:21 Sodium 123 L Potassium 5.1 Chloride 90 L Carbon Dioxide 27 Anion Gap 6.0 BUN 50 H Creatinine 1.46 H Est Cr Clr Drug Dosing 48.7 Est GFR ( Amer) 43.3 Est GFR (Non-Af Amer) 37.4 BUN/Creatinine Ratio 34.3 H Glucose 136 H POC Glucose 163 H 135 H Osmolality Calcium 8.8 _ (1) DM type 2 (diabetes mellitus, type 2) Diabetes mellitus penitentiary insulin use: unspecified terminal clerk insulin use status Diabetes mellitus complication status: with kidney complications Diabetes mellitus complication detail: with chronic kidney disease Diabetic retinopathy severity: Proliferative retinopathy type: Diabetes mellitus macular edema: Laterality: Chronic kidney disease stage: stage 3 (moderate) Qualified Code(s): E11.22 - Type 2 diabetes mellitus with diabetic chronic kidney disease; N18.3 - Chronic kidney disease, stage 3 (moderate)
[2018-03-18 12:40] LABS: Creatinine Urine Random 26.5 mg/dl; Total Protein Urine Random < 5.0 mg/dl (0-11.9)
--- NOTE | 2018-03-18 13:15 | Hospitalist Progress Note ---
Date of Service March 18, 2018 Assessment & Plan (1) Pleural effusion: CT chest showed small left and moderate right pleural effusions. CT abd/chest showed Fluid overload manifested by bilateral pleural effusions with moderate body wall edema and trace abdominal pelvic ascites. S/P thoracentesis where 1.3L pleural fluid removed Pulmonology on board Clinically improved significantly Stable (2) Acute systolic CHF (congestive heart failure), NYHA class 3: History of ischemic cardiomyopathy with combined systolic and diastolic heart failure, Presented with decompensated CHF with weight gain, dyspnea on exertion, orthopnea Lasix/sulfa allergies S/P thoracentesis done Cardiology on board Starting on Zaroxolyn and Entresto Continue to monitor volume status 03/18 Clinically improved Creatinine worsening today from 1.4 and Na dropped to 129--->126-->125--> today ECHO done today showed no wall motion abnormality, EF 55-60 % Case discussed today with Cardio today and OK to D/C entresto since ECHO showed preserve EF Will resume carvedilol since BP improves Continue monitor (3) Hypotension: Will resume carvedilol Entresto was d/c Monitor BP closely (4) Hyponatremia: Mostly related to diuretic (Zaroxolyn) and Entresto Na dropped 129-->126--> 125-->123 today Ethacrynate increased to BID Case discussed with Nephrologoly Continue fluid restriction to 1L Monitor BMP (5) Toe ulcer due to DM: Has chronic left foot diabetic toe ulcer Follows with Dr. Donald outpatient for Ortho on board stable (6) BLANCA (acute kidney injury): (7) Stage III chronic kidney disease: Mostly related to diuretic and Entresto Entresto d/c Creatinine 1.4 today Check BMP later (8) DM type 2 (diabetes mellitus, type 2): Insulin sliding scale Monitor BS (9) CAD (coronary artery disease): Elevated troponin due to CHF decompensated with biventricular failure EKG showed no ischemic changes Troponin tending down On plavix, aspirin and Resume carvedilol Stable (10) Ischemic cardiomyopathy: Severe ischemic cardiomyopathy with biventricular failure Presented with decompensated CHF Volume status improved after diuresis/thoracentesis Metolazone on hold (11) GERD (gastroesophageal reflux disease): Continue PPI (12) DVT prophylaxis: Subcu heparin (13) Discharge planning issues: Waiting for placement to discharge referral made to [facility] Pt was seen and examined Lying in bed with no distress Pt had diarrhea yesterday She said that the water pill usually causes her to have diarrhea She said that the swelling improves in her lower extremity Denies any chest pain, palpitation, dizziness and SOB Physical Exam 2 Vital Signs (Past 24 Hours): Last Vital Signs Temp 36.7 C 03/18/18 12:43 Pulse 94 H 03/18/18 12:43 Resp 18 03/18/18 12:43 BP 122/74 03/18/18 12:43 Pulse Ox 99 03/18/18 12:43 Physical Exam: General- No acute distress Head- atraumatic Eyes- PERRL, EOMI, ENT- oropharynx clear Neck- supple, no JVD Lungs- Diminish breath sound Heart- regular rhythm; no murmur Abdomen- normal bowel sounds, soft Extremities- no calf tenderness, +edema Neuro- alert, oriented x 3; PERRL, EOMI; no facial palsy; no dysarthria Skin- warm & dry _ (1) DM type 2 (diabetes mellitus, type 2) Chronic kidney disease stage: stage 3 (moderate) Diabetes mellitus complication detail: with chronic kidney disease Diabetes mellitus complication status: with kidney complications Diabetes mellitus [facility] insulin use: unspecified residential support specialist insulin use status Diabetes mellitus macular edema: Diabetic retinopathy severity: Laterality: Proliferative retinopathy type: Qualified Code(s): E11.22 - Type 2 diabetes mellitus with diabetic chronic kidney disease; N18.3 - Chronic kidney disease, stage 3 ( moderate) (2) CAD (coronary artery disease) Associated angina: without angina Coronary Disease-Associated Artery/Lesion type: [place] artery [place] vs. transplanted heart: [place] heart Qualified Code (s): I25.10 - Atherosclerotic heart disease of [place] coronary artery without angina pectoris (3) Toe ulcer due to DM Diabetes mellitus type: type 2 Laterality: left Non-pressure ulcer stage: limited to breakdown of skin Qualified Code(s): E11.621 - Type 2 diabetes mellitus with foot ulcer; L97.521 - Non-pressure chronic ulcer of other part of left foot limited to breakdown of skin (4) GERD (gastroesophageal reflux disease) Esophagitis presence: esophagitis presence not specified Qualified Code(s): K21.9 - Gastro-esophageal reflux disease without esophagitis
--- NOTE | 2018-03-18 15:49 | Cardiology Progress Note ---
Date of Service March 18, 2018 Assessment & Plan (1) Chronic combined systolic (congestive) and diastolic (congestive) heart failure: She has a history of systolic and diastolic CHF according the Cardiology records. She does have significant edema currently but labs have suggested azotemia with diuretic therapy. Nephrology is now managing diuretics. Check BNP. If BNP is less than 300, would evaluate for non heart failure causes of her edema. Her mucous membranes appear dry. She does have protein urea and mild hypoalbuminemia, which could contribute to edema. She is being evaluated further with 24 hour urine protein under the direction of Nephrology. Continue low-sodium diet. Her systolic function has normalized. (2) CAD (coronary artery disease): No angina. She is status post CABG. Continue anti-platelet therapy if no contraindications. Continue beta-angela. She is intolerant to statin therapy. (3) Ischemic cardiomyopathy: She carries a history of ischemic cardiomyopathy however echocardiogram during this admission demonstrates normal left ventricular systolic function. Can continue beta-angela. Entresto is not indicated. Also, she was found to be hypotensive, which could contribute to her abnormal renal function. Discontinue Entresto. (4) Hyponatremia: As per Nephrology. (5) Hypotension: Can discontinue Entresto. Disposition: If BNP is < 300, would recommend continued evaluation for noncardiac causes of her edema. If her renal function worsens and she still appears hypervolemic with an abnormal BNP, would consider right heart catheterization at that time to help more definitively evaluate filling pressures. Patient care discussed with Dr. Watt of Nephrology. Dr. Murray has also discussed this patient care issues with me. Subjective Dr. Murray has inquired today about Entresto and recent echo. She herself feels as though she has improved her breathing standpoint. She has dyspnea with exertion. She denies orthopnea, PND, syncope, near-syncope, chest pain, or palpitations. She continues to have lower extremity edema. Her diuretic was adjusted by Nephrology. She was found to have proteinurea, which is being evaluated by Nephrology. Review of systems: As above. Physical Exam 2 Vital Signs (Past 24 Hours): Last Vital Signs Temp 36.9 C 03/18/18 15:15 Pulse 84 03/18/18 15:15 Resp 20 03/18/18 15:15 BP 108/58 L 12/22/18 15:15 Pulse Ox 100 03/18/18 15:15 Intake & Output 03/16/18 03/17/18 03/18/18 03/19/18 06:59 06:59 06:59 06:59 Intake Total 2004 980 / 980 1850 / 1850 2064 / 2064 Output Total 2400 / 2400 303 / 303 300 / 300 1350 / 1350 Balance -395 / -395 677 / 677 1550 / 1550 715 / 715 Weight 111.9 kg 111.7 kg 111.7 kg Physical Exam: Gen.: No acute distress. Alert and oriented. HEENT: Anicteric sclera. Neck: No appreciable JVD. No hepatic jugular reflux. Cardiac: Regular. Normal S1-S2. No audible murmurs, rubs, or gallops. Pulmonary: Clear to auscultation bilaterally without wheezes, rales, or rhonchi. Abdomen: Soft, nontender, nondistended, with normoactive bowel sounds. No bruits noted. Extremities: 1+ bilateral lower extremity edema to above the knees. No cyanosis. Psychiatric: Affect appears appropriate. Results & Data Laboratory Results Laboratory Results - last 24 hr 03/17/18 03/17/18 03/18/18 16:24 20:11 05:42 Sodium 123 L Potassium 5.1 Chloride 90 L Carbon Dioxide 27 Anion Gap 6.0 BUN 50 H Creatinine 1.46 H Est Cr Clr Drug Dosing 48.7 Est GFR ( Amer) 43.3 Est GFR (Non-Af Amer) 37.4 BUN/Creatinine Ratio 34.3 H Glucose 136 H POC Glucose 112 H 163 H Calcium 8.8 Urine Osmolality Ur Random Creatinine U Random Total Protein Protein/Creatinin Ratio 03/18/18 03/18/18 03/18/18 07:21 11:17 11:17 Sodium Potassium Chloride Carbon Dioxide Anion Gap BUN Creatinine Est Cr Clr Drug Dosing Est GFR ( Amer) Est GFR (Non-Af Amer) BUN/Creatinine Ratio Glucose POC Glucose 135 H Calcium Urine Osmolality 217 L Ur Random Creatinine 26.5 U Random Total Protein < 5.0 Protein/Creatinin Ratio TNP 03/18/18 03/18/18 03/18/18 11:23 11:25 11:26 Sodium Potassium Chloride Carbon Dioxide Anion Gap BUN Creatinine Est Cr Clr Drug Dosing Est GFR ( Amer) Est GFR (Non-Af Amer) BUN/Creatinine Ratio Glucose POC Glucose 389 H* 203 H 190 H Calcium Urine Osmolality Ur Random Creatinine U Random Total Protein Protein/Creatinin Ratio Diagnostic Findings Echo 03/17/2018: Images were personally reviewed. Normal left ventricular systolic function. As per official report: There is mild concentric left ventricular hypertrophy. The left ventricular wall motion is normal. Left ventricular systolic function is normal. The LV Ejection Fraction = 55-60%. Calcified mitral apparatus with associated mitral annular calcification and calcification of the sub chordal apparatus. Significant mitral regurgitation is absent. There is no mitral valve stenosis. Doppler findings do not suggest pulmonary hypertension. The calculated PA systolic pressure =26 mm Hg. Diastolic dysfunction, Grade II (pseudonormalization pattern). Compared to the prior study dated 04/14/17, the LV systolic function has improved / normalized. Telemetry personally reviewed: Sinus rhythm. No arrhythmia. Medications Administered Current Inpatient Medications Albuterol (Ventolin Hfa) 2 puffs INH QID PRN PRN Reason: Shortness Of Breath Or Wheezing Stop: 04/10/18 22:37 Aspirin (Ecotrin) 81 mg PO DAILY [facility] Stop: 04/11/18 08:59 Last Admin: 03/18/18 09:33 Dose: 81 mg Carvedilol (Coreg) 6.25 mg PO BID [facility] Stop: 04/11/18 08:59 Last Admin: 03/17/18 07:52 Dose: 6.25 mg Clopidogrel Bisulfate (Plavix) 75 mg PO DAILY [facility] Stop: 04/11/18 08:59 Last Admin: 03/18/18 09:34 Dose: 75 mg Dextrose (Dextrose 50%) 25 - 50 ml IV UD PRN; Protocol PRN Reason: Hypoglycemia Protocol Stop: 04/10/18 22:56 Glucagon (Glucagen) 1 mg SQ UD PRN; Protocol PRN Reason: Hypoglycemia Protocol Stop: 04/10/18 22:56 Glucose (Glucose 40%) 15 - 30 gm PO UD PRN; Protocol PRN Reason: Hypoglycemia Protocol Stop: 04/10/18 22:56 Glucose (Dex4 Glucose) 4 - 8 tabs PO UD PRN; Protocol PRN Reason: Hypoglycemia Protocol Stop: 04/10/18 22:56 Heparin Sodium (Porcine) (Heparin Sodium (Porcine)) 5,000 units SQ Q8 [facility] Stop: 04/10/18 22:37 Last Admin: 03/18/18 14:07 Dose: 5,000 units Ethacrynate Sodium 50 mg/ (Sodium Chloride) 50 mls @ 100 mls/hr IV BID17 [facility]; Protocol Stop: 04/17/18 09:29 Last Infusion: 03/18/18 11:00 Dose: Infused Insulin Aspart (Novolog Flexpen) 0 units SC ACHS [facility] Stop: 04/11/18 07:29 Last Admin: 03/18/18 12:09 Dose: 4 units Insulin Glargine (Lantus Solostar Pen) 5 units SC BID [facility] Stop: 04/10/18 22:37 Last Admin: 03/18/18 09:34 Dose: 5 units Ipratropium [place] (Atrovent 0.02% 0.5mg/2.5ml) 0.5 mg INH Q4H PRN PRN Reason: SOB/WHEEZE Stop: 04/11/18 01:44 Last Admin: 03/15/18 00:11 Dose: 0.5 mg Levalbuterol HCl (Xopenex 1.25mg/0.5ml Neb) 1.25 mg INH Q4H PRN PRN Reason: SOB/WHEEZE Stop: 04/11/18 01:44 Last Admin: 03/15/18 00:11 Dose: 1.25 mg Levothyroxine Sodium (Synthroid) 150 mcg PO DAILYBB [facility] Stop: 04/11/18 06:29 Last Admin: 03/18/18 05:52 Dose: 150 mcg Magnesium Oxide (Mag-Ox) 400 mg PO BID [facility] Stop: 04/11/18 08:59 Last Admin: 03/18/18 09:34 Dose: 400 mg Mirtazapine (Remeron) 30 mg PO HS [facility] Stop: 04/11/18 20:59 Last Admin: 03/17/18 20:17 Dose: 30 mg Miscellaneous (Order Awaiting Action) 1 ea N/A QS [facility] Stop: 04/11/18 07:59 Last Admin: 03/18/18 09:27 Dose: Not Given Miscellaneous (Carbohydrates For Hypoglycemia) 15 - 30 gm PO UD PRN PRN Reason: Hypoglycemia Treatment Stop: 04/10/18 22:56 Multivitamins/Minerals (Multivitamin W/ Minerals) 1 tab PO DAILY [facility] Stop: 04/11/18 08:59 Last Admin: 03/18/18 09:34 Dose: 1 tab Nitroglycerin (Nitrostat) 0.4 mg SL UD PRN PRN Reason: Chest Pain Stop: 04/10/18 22:37 Ondansetron HCl (Zofran) 4 mg IV Q6H PRN PRN Reason: Nausea Stop: 04/10/18 22:37 Oxybutynin Chloride (Ditropan) 5 mg PO BID [facility] Stop: 04/11/18 08:59 Last Admin: 03/18/18 09:33 Dose: 5 mg Polyethylene Glycol (Miralax Powder Packet) 17 gm PO DAILY PRN PRN Reason: Constipation Stop: 04/10/18 22:37 Pramipexole Dihydrochloride (Mirapex) 0.75 mg PO HS [facility] Stop: 04/11/18 20:59 Last Admin: 03/17/18 20:18 Dose: 0.75 mg Pregabalin (Lyrica) 300 mg PO HS [facility] Stop: 04/10/18 22:59 Last Admin: 03/17/18 20:30 Dose: 300 mg Pregabalin (Lyrica) 150 mg PO QAM [facility] Stop: 04/11/18 08:59 Last Admin: 03/18/18 09:43 Dose: 150 mg Tramadol HCl (Ultram) 50 mg PO Q8H PRN PRN Reason: pain Stop: 04/10/18 22:37 Last Admin: 03/17/18 07:57 Dose: 50 mg Venlafaxine HCl (Effexor Extended Release) 150 mg PO DAILY [facility] Stop: 04/11/18 08:59 Last Admin: 03/18/18 09:33 Dose: 150 mg _ (1) CAD (coronary artery disease) Coronary Disease-Associated Artery/Lesion type: [place] artery [place] vs. transplanted heart: [place] heart Associated angina: without angina Qualified Code(s): I25.10 - Atherosclerotic heart disease of [place] coronary artery without angina pectoris
[2018-03-18] MEDS: PRAMIPEXOLE DIHYDROCHLO 0.25 MG TAB PO SCH (20:35)
[2018-03-18] MEDS: CARVEDILOL 6.25 MG TAB PO SCH (20:39)
[2018-03-18] MEDS: MIRTAZAPINE TAB 15 MG TAB PO SCH (20:40)
[2018-03-19] MEDS: LEVOTHYROXINE SODIUM 150 MCG TABLET PO SCH (05:36)
[2018-03-19] MEDS: HEPARIN SOD 5,000 UNIT/0.5 ML VIAL SQ SCH ×3 (05:36→20:24)
[2018-03-19 08:00] LABS: Albumin Level 3.1 gm/dl (3.4-5.0); Calcium 8.8 mg/dl (8.5-10.1); Creatinine Clr Calc Pharmacy 49.1 ml/min; Est GFR (African American) 45.2; Potassium 4.3 mmol/L (3.5-5.1)
[2018-03-19 08:05] LABS: Albumin Globulin Ratio 0.9 (0.9-2); Bilirubin,Total 0.5 mg/dl (0.1-1); Globulin 3.5 gm/dl (2.5-4.0); Total Protein 6.6 gm/dl (6.4-8.2)
[2018-03-19] MEDS: INSULIN ASPART 100 UNITS/ML 3 ML PEN SC SCH ×4 (08:05→20:25)
[2018-03-19] MEDS: CARVEDILOL 6.25 MG TAB PO SCH ×2 (10:00→20:22)
[2018-03-19] MEDS: OXYBUTYNIN CHLORIDE 5 MG TAB PO SCH ×2 (10:01→20:22)
[2018-03-19] MEDS: INSULIN GLARGINE SOLOSTAR 100 UNITS/ML 3 ML PEN SC SCH ×2 (10:01→20:24)
[2018-03-19] MEDS: VENLAFAXINE HCL XR 150 MG CAPXR PO SCH (10:01)
[2018-03-19] MEDS: ASPIRIN 81 MG ECTAB PO SCH (10:01)
[2018-03-19] MEDS: CEROVITE ADV FORMULA TAB PO SCH (10:02)
[2018-03-19] MEDS: CLOPIDOGREL BISULFATE 75 MG TAB PO SCH (10:02)
[2018-03-19] MEDS: MAGNESIUM OXIDE 400 MG TAB PO SCH ×2 (10:02→20:23)
[2018-03-19] MEDS: PREGABALIN 150 MG CAP PO SCH ×2 (10:16→20:21)
[2018-03-19] MEDS: [UNRECOGNIZED DRUG - OTHER] IV SCH ×2 (10:29→18:09)
[2018-03-19] MEDS: SODIUM CHLORIDE 0.9% IV SCH ×2 (10:29→18:09)
--- NOTE | 2018-03-19 10:31 | Nephrology Progress Note ---
Date of Service March 19, 2018 Assessment & Plan (1) Hyponatremia: -- Improving -- Continue diuretics to encourage net negative fluid balance (avoid thiazide type diuretics) -- Maintain 1.2 L daily fluid restriction -- AM cortisol level pending -- Document I/O's and daily metabolic profile (2) Acute kidney injury superimposed on CKD: -- Creatinine stable -- UOP improved -- Low K diet -- Urine sediment is acellular -- Repeat urine studies negative for protein, suggesting that +4 protein reported on UA was not accurate -- Abdominal CT 03/11/18 with bilateral renal cortical scarring. No hydronephrosis (3) Chronic combined systolic (congestive) and diastolic (congestive) heart failure: -- Ethacrynic acid 50 mg twice daily x 1 additional day -- May consider weaning diuretics tomorrow depending on response to therapy -- Plan of care discussed with cardiology (Dr. Kirk) this AM -- TTE demonstrated improved LV systolic function, Entresto has been stopped -- Potassium improving and the addition of a K-sparing diuretic may be considered in the future as needed (4) DM type 2 (diabetes mellitus, type 2): Subjective No acute events overnight. Claudia feels well this morning. Lower extremity edema is improving. Urine output improved. The patient is tolerating fluid restriction well. She has been out of bed. She denies lightheadedness or dizziness. Review of Systems All systems reviewed & are unremarkable except as noted in HPI & below Physical Exam 2 Vital Signs (Past 24 Hours): Last Vital Signs Temp 37.0 C 03/19/18 08:04 Pulse 65 03/19/18 08:04 Resp 18 03/19/18 08:04 BP 109/64 03/19/18 08:04 Pulse Ox 96 03/19/18 08:04 Constitutional: well developed and + ill appearing Eyes: PERRL, conjunctivae normal, anicteric sclerae ENMT: external ear and nose normal, oropharynx normal Neck: trachea midline Respiratory: Auscultation: lungs clear to auscultation bilaterally ( diminished at L base) Cardiovascular: Rate/Rhythm: regular rate and regular rhythm Extremities: + edema (improving bilateral LE edema) Gastrointestinal (Abdomen): Percussion/Palpation: abdomen soft; abdomen nontender (obese) Musculoskeletal: Extremities: no cyanosis and no clubbing Skin: no rashes, warm and dry Neurologic: Motor/Sensory: no tremor and no asterixis Results & Data Laboratory Results Laboratory Results - last 24 hr 03/18/18 03/18/18 03/18/18 05:42 11:17 11:17 Sodium Potassium Chloride Carbon Dioxide Anion Gap BUN Creatinine Est Cr Clr Drug Dosing Est GFR ( Amer) Est GFR (Non-Af Amer) BUN/Creatinine Ratio Glucose POC Glucose Calcium Total Bilirubin AST ALT Alkaline Phosphatase NT-Pro-B Natriuret Pep 4512 H Total Protein Albumin Globulin Albumin/Globulin Ratio Urine Osmolality 217 L Ur Random Creatinine 26.5 U Random Total Protein < 5.0 Protein/Creatinin Ratio TNP 03/18/18 03/18/18 03/18/18 11:23 11:25 11:26 Sodium Potassium Chloride Carbon Dioxide Anion Gap BUN Creatinine Est Cr Clr Drug Dosing Est GFR ( Amer) Est GFR (Non-Af Amer) BUN/Creatinine Ratio Glucose POC Glucose 389 H* 203 H 190 H Calcium Total Bilirubin AST ALT Alkaline Phosphatase NT-Pro-B Natriuret Pep Total Protein Albumin Globulin Albumin/Globulin Ratio Urine Osmolality Ur Random Creatinine U Random Total Protein Protein/Creatinin Ratio 03/18/18 03/18/18 03/19/18 16:11 20:24 07:06 Sodium 128 L Potassium 4.3 D Chloride 90 L Carbon Dioxide 31 Anion Gap 8.0 BUN 47 H Creatinine 1.41 H Est Cr Clr Drug Dosing 49.1 Est GFR ( Amer) 45.2 Est GFR (Non-Af Amer) 39.0 BUN/Creatinine Ratio 33.0 H Glucose 128 H POC Glucose 126 H 184 H Calcium 8.8 Total Bilirubin 0.5 AST 33 ALT 38 Alkaline Phosphatase 103 NT-Pro-B Natriuret Pep Total Protein 6.6 Albumin 3.1 L Globulin 3.5 Albumin/Globulin Ratio 0.9 Urine Osmolality Ur Random Creatinine U Random Total Protein Protein/Creatinin Ratio 03/19/18 07:24 Sodium Potassium Chloride Carbon Dioxide Anion Gap BUN Creatinine Est Cr Clr Drug Dosing Est GFR ( Amer) Est GFR (Non-Af Amer) BUN/Creatinine Ratio Glucose POC Glucose 129 H Calcium Total Bilirubin AST ALT Alkaline Phosphatase NT-Pro-B Natriuret Pep Total Protein Albumin Globulin Albumin/Globulin Ratio Urine Osmolality Ur Random Creatinine U Random Total Protein Protein/Creatinin Ratio _ (1) DM type 2 (diabetes mellitus, type 2) Diabetes mellitus medical terminologist insulin use: unspecified jail insulin use status Diabetes mellitus complication status: with kidney complications Diabetes mellitus complication detail: with chronic kidney disease Diabetic retinopathy severity: Proliferative retinopathy type: Diabetes mellitus macular edema: Laterality: Chronic kidney disease stage: stage 3 (moderate) Qualified Code(s): E11.22 - Type 2 diabetes mellitus with diabetic chronic kidney disease; N18.3 - Chronic kidney disease, stage 3 (moderate)
--- NOTE | 2018-03-19 10:46 | Cardiology Progress Note ---
Date of Service March 19, 2018 Assessment & Plan (1) Chronic combined systolic (congestive) and diastolic (congestive) heart failure: She has a history of systolic and diastolic CHF according the Cardiology records. She is diuresing nicely. She appears hypervolemic. BNP was elevated. Creatinine has improved and sodium has also improved. Continue fluid restriction in the setting of heart failure and hyponatremia. Continue low-sodium diet. Her systolic function has normalized. (2) CAD (coronary artery disease): No angina. She is status post CABG. Continue anti-platelet therapy if no contraindications. Continue beta-angela. She is intolerant to statin therapy. (3) Ischemic cardiomyopathy: She carries a history of ischemic cardiomyopathy however echocardiogram during this admission demonstrates normal left ventricular systolic function. Can continue beta-angela. Entresto has been discontinued as it was started earlier this hospitalization but her LV systolic function is now normal. She was also hypotensive while on Entresto, which could have contributed to her abnormal renal function. (4) Hyponatremia: As per Nephrology. Sodium concentration is improving. (5) Hypotension: Blood pressure has improved after discontinuation of Entresto. Disposition: Overall, she appears to be improving. Continue current plan. Diuretic therapy has been adjusted by Nephrology. Subjective Her breathing is stable. She denies shortness of breath at rest. She denies chest pain, palpitations, syncope, near-syncope. She believes that her edema has improved. Her legs are less tense. Review of systems: As above. She denies melena or hematochezia. Physical Exam 2 Vital Signs (Past 24 Hours): Last Vital Signs Temp 37.0 C 03/19/18 08:04 Pulse 65 03/19/18 08:04 Resp 18 03/19/18 08:04 BP 109/64 03/19/18 08:04 Pulse Ox 96 03/19/18 08:04 Intake & Output 03/17/18 03/18/18 03/19/18 03/20/18 06:59 06:59 06:59 06:59 Intake Total 980 / 980 1850 / 1850 2985 / 2985 Output Total 303 / 303 300 / 300 4550 / 4550 Balance 677 / 677 1550 / 1550 -1565 / -1565 Weight 111.7 kg 111.7 kg 106.5 kg Physical Exam: Gen.: No acute distress. Alert and oriented. HEENT: Anicteric sclera. Neck: No appreciable JVD. Cardiac: Regular. Normal S1-S2. 1/6 systolic murmur. No rubs, or gallops. Pulmonary: Clear to auscultation bilaterally without wheezes, rales, or rhonchi. Abdomen: Soft, nontender, nondistended, with normoactive bowel sounds. No bruits noted. Extremities: Trace to 1+ bilateral lower extremity edema. The edema is much less tense today. No cyanosis. Psychiatric: Affect appears appropriate. Results & Data Laboratory Results Laboratory Results - last 24 hr 03/18/18 03/18/18 03/18/18 05:42 11:17 11:17 Sodium Potassium Chloride Carbon Dioxide Anion Gap BUN Creatinine Est Cr Clr Drug Dosing Est GFR ( Amer) Est GFR (Non-Af Amer) BUN/Creatinine Ratio Glucose POC Glucose Calcium Total Bilirubin AST ALT Alkaline Phosphatase NT-Pro-B Natriuret Pep 4512 H Total Protein Albumin Globulin Albumin/Globulin Ratio Urine Osmolality 217 L Ur Random Creatinine 26.5 U Random Total Protein < 5.0 Protein/Creatinin Ratio TNP 03/18/18 03/18/18 03/18/18 11:23 11:25 11:26 Sodium Potassium Chloride Carbon Dioxide Anion Gap BUN Creatinine Est Cr Clr Drug Dosing Est GFR ( Amer) Est GFR (Non-Af Amer) BUN/Creatinine Ratio Glucose POC Glucose 389 H* 203 H 190 H Calcium Total Bilirubin AST ALT Alkaline Phosphatase NT-Pro-B Natriuret Pep Total Protein Albumin Globulin Albumin/Globulin Ratio Urine Osmolality Ur Random Creatinine U Random Total Protein Protein/Creatinin Ratio 03/18/18 03/18/18 03/19/18 16:11 20:24 07:06 Sodium 128 L Potassium 4.3 D Chloride 90 L Carbon Dioxide 31 Anion Gap 8.0 BUN 47 H Creatinine 1.41 H Est Cr Clr Drug Dosing 49.1 Est GFR ( Amer) 45.2 Est GFR (Non-Af Amer) 39.0 BUN/Creatinine Ratio 33.0 H Glucose 128 H POC Glucose 126 H 184 H Calcium 8.8 Total Bilirubin 0.5 AST 33 ALT 38 Alkaline Phosphatase 103 NT-Pro-B Natriuret Pep Total Protein 6.6 Albumin 3.1 L Globulin 3.5 Albumin/Globulin Ratio 0.9 Urine Osmolality Ur Random Creatinine U Random Total Protein Protein/Creatinin Ratio 03/19/18 07:24 Sodium Potassium Chloride Carbon Dioxide Anion Gap BUN Creatinine Est Cr Clr Drug Dosing Est GFR ( Amer) Est GFR (Non-Af Amer) BUN/Creatinine Ratio Glucose POC Glucose 129 H Calcium Total Bilirubin AST ALT Alkaline Phosphatase NT-Pro-B Natriuret Pep Total Protein Albumin Globulin Albumin/Globulin Ratio Urine Osmolality Ur Random Creatinine U Random Total Protein Protein/Creatinin Ratio Diagnostic Findings Telemetry personally reviewed: Sinus rhythm. No arrhythmia. Chart reviewed. Medications Administered Current Inpatient Medications Albuterol (Ventolin Hfa) 2 puffs INH QID PRN PRN Reason: Shortness Of Breath Or Wheezing Stop: 04/10/18 22:37 Aspirin (Ecotrin) 81 mg PO DAILY [facility] Stop: 04/11/18 08:59 Last Admin: 03/19/18 10:01 Dose: 81 mg Carvedilol (Coreg) 6.25 mg PO BID [facility] Stop: 04/11/18 08:59 Last Admin: 03/19/18 10:00 Dose: 6.25 mg Clopidogrel Bisulfate (Plavix) 75 mg PO DAILY [facility] Stop: 04/11/18 08:59 Last Admin: 03/19/18 10:02 Dose: 75 mg Dextrose (Dextrose 50%) 25 - 50 ml IV UD PRN; Protocol PRN Reason: Hypoglycemia Protocol Stop: 04/10/18 22:56 Glucagon (Glucagen) 1 mg SQ UD PRN; Protocol PRN Reason: Hypoglycemia Protocol Stop: 04/10/18 22:56 Glucose (Glucose 40%) 15 - 30 gm PO UD PRN; Protocol PRN Reason: Hypoglycemia Protocol Stop: 04/10/18 22:56 Glucose (Dex4 Glucose) 4 - 8 tabs PO UD PRN; Protocol PRN Reason: Hypoglycemia Protocol Stop: 04/10/18 22:56 Heparin Sodium (Porcine) (Heparin Sodium (Porcine)) 5,000 units SQ Q8 [facility] Stop: 04/10/18 22:37 Last Admin: 03/19/18 05:36 Dose: 5,000 units Ethacrynate Sodium 50 mg/ (Sodium Chloride) 50 mls @ 100 mls/hr IV BID17 [facility]; Protocol Stop: 04/17/18 09:29 Last Admin: 03/19/18 10:29 Dose: 100 mls/hr Insulin Aspart (Novolog Flexpen) 0 units SC ACHS [facility] [place] Stop: 04/11/18 07:29 Last Admin: 03/19/18 08:05 Dose: 5 units Insulin Glargine (Lantus Solostar Pen) 5 units SC BID [facility] Stop: 04/10/18 22:37 Last Admin: 03/19/18 10:01 Dose: 5 units Ipratropium [place] (Atrovent 0.02% 0.5mg/2.5ml) 0.5 mg INH Q4H PRN PRN Reason: SOB/WHEEZE Stop: 04/11/18 01:44 Last Admin: 03/15/18 00:11 Dose: 0.5 mg Levalbuterol HCl (Xopenex 1.25mg/0.5ml Neb) 1.25 mg INH Q4H PRN PRN Reason: SOB/WHEEZE Stop: 04/11/18 01:44 Last Admin: 03/15/18 00:11 Dose: 1.25 mg Levothyroxine Sodium (Synthroid) 150 mcg PO DAILYBB [facility] Stop: 04/11/18 06:29 Last Admin: 03/19/18 05:36 Dose: 150 mcg Magnesium Oxide (Mag-Ox) 400 mg PO BID [facility] [place] Stop: 04/11/18 08:59 Last Admin: 03/19/18 10:02 Dose: 400 mg Mirtazapine (Remeron) 30 mg PO HS [facility] [place] Stop: 04/11/18 20:59 Last Admin: 03/18/18 20:40 Dose: 30 mg Miscellaneous (Order Awaiting Action) 1 ea N/A QS [facility] Stop: 04/11/18 07:59 Last Admin: 03/19/18 08:04 Dose: Not Given Miscellaneous (Carbohydrates For Hypoglycemia) 15 - 30 gm PO UD PRN PRN Reason: Hypoglycemia Treatment Stop: 04/10/18 22:56 Multivitamins/Minerals (Multivitamin W/ Minerals) 1 tab PO DAILY [facility] Stop: 04/11/18 08:59 Last Admin: 03/19/18 10:02 Dose: 1 tab Nitroglycerin (Nitrostat) 0.4 mg SL UD PRN PRN Reason: Chest Pain Stop: 04/10/18 22:37 Ondansetron HCl (Zofran) 4 mg IV Q6H PRN PRN Reason: Nausea Stop: 04/10/18 22:37 Oxybutynin Chloride (Ditropan) 5 mg PO BID [facility] [place] Stop: 04/11/18 08:59 Last Admin: 03/19/18 10:01 Dose: 5 mg Polyethylene Glycol (Miralax Powder Packet) 17 gm PO DAILY PRN PRN Reason: Constipation Stop: 04/10/18 22:37 Pramipexole Dihydrochloride (Mirapex) 0.75 mg PO HS [facility] [place] Stop: 04/11/18 20:59 Last Admin: 03/18/18 20:35 Dose: 0.75 mg Pregabalin (Lyrica) 300 mg PO HS [facility] [place] Stop: 04/10/18 22:59 Last Admin: 03/18/18 20:49 Dose: 300 mg Pregabalin (Lyrica) 150 mg PO QAM [facility] Stop: 04/11/18 08:59 Last Admin: 03/19/18 10:16 Dose: 150 mg Tramadol HCl (Ultram) 50 mg PO Q8H PRN PRN Reason: pain Stop: 04/10/18 22:37 Last Admin: 03/17/18 07:57 Dose: 50 mg Venlafaxine HCl (Effexor Extended Release) 150 mg PO DAILY [facility] Stop: 04/11/18 08:59 Last Admin: 03/19/18 10:01 Dose: 150 mg _ (1) CAD (coronary artery disease) Coronary Disease-Associated Artery/Lesion type: [place] artery [place] vs. transplanted heart: [place] heart Associated angina: without angina Qualified Code(s): I25.10 - Atherosclerotic heart disease of [place] coronary artery without angina pectoris
--- NOTE | 2018-03-19 17:23 | Hospitalist Progress Note ---
Date of Service March 19, 2018 Assessment & Plan (1) Pleural effusion: CT chest showed small left and moderate right pleural effusions. CT abd/chest showed Fluid overload manifested by bilateral pleural effusions with moderate body wall edema and trace abdominal pelvic ascites. S/P thoracentesis where 1.3L pleural fluid removed Pulmonology on board Clinically improved significantly Stable (2) Acute systolic CHF (congestive heart failure), NYHA class 3: History of ischemic cardiomyopathy with combined systolic and diastolic heart failure, Presented with decompensated CHF with weight gain, dyspnea on exertion, orthopnea Lasix/sulfa allergies S/P thoracentesis done Cardiology on board Starting on Zaroxolyn and Entresto Continue to monitor volume status 03/19 Clinically improved Creatinine worsening today from 1.4 and Na dropped to 129--->126-->125-->128 today ECHO done today showed no wall motion abnormality, EF 55-60 % D/C entresto since ECHO showed preserve EF Continue carvedilol BID Continue monitor (3) Hypotension: Continue Carvedilol Entresto was d/c Monitor BP closely (4) Hyponatremia: Mostly related to diuretic (Zaroxolyn) and Entresto Na dropped 129-->126--> 125-->123-->128 today Ethacrynate increased to BID Case discussed with Nephrologoly Continue fluid restriction to 1L Monitor BMP (5) Toe ulcer due to DM: Has chronic left foot diabetic toe ulcer Follows with Dr. Donald outpatient for Ortho on board stable (6) BLANCA (acute kidney injury): (7) Stage III chronic kidney disease: Mostly related to diuretic and Entresto Entresto d/c Creatinine 1.4 today Check BMP later (8) DM type 2 (diabetes mellitus, type 2): Insulin sliding scale Monitor BS (9) CAD (coronary artery disease): Elevated troponin due to CHF decompensated with biventricular failure EKG showed no ischemic changes Troponin tending down On plavix, aspirin and Resume carvedilol Stable (10) Ischemic cardiomyopathy: Severe ischemic cardiomyopathy with biventricular failure Presented with decompensated CHF Volume status improved after diuresis/thoracentesis Metolazone on hold (11) GERD (gastroesophageal reflux disease): Continue PPI (12) DVT prophylaxis: Subcu heparin (13) Discharge planning issues: Waiting for placement to discharge referral made to [facility] Subjective Pt was seen and examined sitting in chair comfortable watching TV Pt said that she feels much better No diarrhea since Tuesday Denies any chest pain, palpitation and SOB Physical Exam 2 Vital Signs (Past 24 Hours): Last Vital Signs Temp 36.4 C L 03/19/18 15:13 Pulse 84 03/19/18 15:13 Resp 20 03/19/18 15:13 BP 109/76 03/19/18 15:13 Pulse Ox 94 03/19/18 15:13 Physical Exam: General- No acute distress Head- atraumatic Eyes- PERRL, EOMI, ENT- oropharynx clear Neck- supple, no JVD Lungs- Diminish breath sound Heart- regular rhythm; no murmur Abdomen- normal bowel sounds, soft Extremities- no calf tenderness, +edema Neuro- alert, oriented x 3; PERRL, EOMI; no facial palsy; no dysarthria Skin- warm & dry _ (1) DM type 2 (diabetes mellitus, type 2) Chronic kidney disease stage: stage 3 (moderate) Diabetes mellitus complication detail: with chronic kidney disease Diabetes mellitus complication status: with kidney complications Diabetes mellitus [facility] insulin use: unspecified [facility] insulin use status Diabetes mellitus macular edema: Diabetic retinopathy severity: Laterality: Proliferative retinopathy type: Qualified Code(s): E11.22 - Type 2 diabetes mellitus with diabetic chronic kidney disease; N18.3 - Chronic kidney disease, stage 3 ( moderate) (2) CAD (coronary artery disease) Associated angina: without angina Coronary Disease-Associated Artery/Lesion type: [place] artery [place] vs. transplanted heart: [place] heart Qualified Code (s): I25.10 - Atherosclerotic heart disease of [place] coronary artery without angina pectoris (3) Toe ulcer due to DM Diabetes mellitus type: type 2 Laterality: left Non-pressure ulcer stage: limited to breakdown of skin Qualified Code(s): E11.621 - Type 2 diabetes mellitus with foot ulcer; L97.521 - Non-pressure chronic ulcer of other part of left foot limited to breakdown of skin (4) GERD (gastroesophageal reflux disease) Esophagitis presence: esophagitis presence not specified Qualified Code(s): K21.9 - Gastro-esophageal reflux disease without esophagitis
[2018-03-19] MEDS: MIRTAZAPINE TAB 15 MG TAB PO SCH (20:22)
[2018-03-19] MEDS: PRAMIPEXOLE DIHYDROCHLO 0.25 MG TAB PO SCH (20:23)
[2018-03-20] MEDS: HEPARIN SOD 5,000 UNIT/0.5 ML VIAL SQ SCH ×3 (05:43→22:42)
[2018-03-20] MEDS: LEVOTHYROXINE SODIUM 150 MCG TABLET PO SCH (05:43)
[2018-03-20 06:42] LABS: BUN Creatinine Ratio 31.9 (10-20); Calcium 8.6 mg/dl (8.5-10.1); Est GFR (African American) 44.1; Potassium 3.6 mmol/L (3.5-5.1)
[2018-03-20 07:41] LABS: Appearance Urine Clear (Clear); Bacteria Urine Automated Negative (Negative); Bilirubin Urine Negative (Negative); Color Urine Yellow; Glucose Urine UA Negative (Negative); Ketones Urine Negative (Negative); Leukocyte Esterase Urine 1+ (Negative); Nitrite Urine Negative (Negative); Protein Urine Negative (Negative); Specific Gravity Urine 1.006 (1.000-1.030); Urobilinogen Urine Negative (Negative); WBC Urine Automated 0 /hpf (0-5); pH Urine 5.5 (4.5-7.5)
[2018-03-20] MEDS: INSULIN ASPART 100 UNITS/ML 3 ML PEN SC SCH ×4 (08:26→22:36)
[2018-03-20] MEDS: INSULIN GLARGINE SOLOSTAR 100 UNITS/ML 3 ML PEN SC SCH ×2 (08:27→22:38)
[2018-03-20] MEDS: VENLAFAXINE HCL XR 150 MG CAPXR PO SCH (08:28)
[2018-03-20] MEDS: CARVEDILOL 6.25 MG TAB PO SCH ×2 (08:28→22:40)
[2018-03-20] MEDS: ASPIRIN 81 MG ECTAB PO SCH (08:28)
[2018-03-20] MEDS: OXYBUTYNIN CHLORIDE 5 MG TAB PO SCH ×2 (08:28→22:39)
[2018-03-20] MEDS: MAGNESIUM OXIDE 400 MG TAB PO SCH ×2 (08:28→22:40)
[2018-03-20] MEDS: CEROVITE ADV FORMULA TAB PO SCH (08:28)
[2018-03-20] MEDS: CLOPIDOGREL BISULFATE 75 MG TAB PO SCH (08:28)
[2018-03-20] MEDS: PREGABALIN 150 MG CAP PO SCH ×2 (08:32→22:36)
[2018-03-20] MEDS: SODIUM CHLORIDE 0.9% IV SCH (09:50)
[2018-03-20] MEDS: [UNRECOGNIZED DRUG - OTHER] IV SCH (09:50)
--- NOTE | 2018-03-20 10:00 | Nephrology Progress Note ---
Date of Service March 20, 2018 Assessment & Plan (1) Hyponatremia: -- Improving -- Continue diuretics to encourage net negative fluid balance (avoid thiazide type diuretics), recommend changing to ethacrynic acid from IV to 50 milligram orally twice daily, if she continues to have decent response with at least 0.5- 1 liter negative per 24 hour, eventually she can be switched to 25 milligram daily --suggest evaluation by an draw machine operator as an outpatient to define the nature of allergy with Lasix and Bumex -- Maintain 1.2 L daily fluid restriction -- Document I/O's and daily metabolic profile --repeat UA done this morning showed no significant proteinuria, prior urinalysis showing 4+ proteinuria , unclear etiology, ? Lab error (2) Acute kidney injury superimposed on CKD: (3) Chronic combined systolic (congestive) and diastolic (congestive) heart failure: -- TTE demonstrated improved LV systolic function, Entresto has been stopped -- Potassium improving and the addition of a K-sparing diuretic may be considered in the future as needed Yadira Gorman was seen examined in her room this morning. No acute events overnight. Claudia feels well this morning. Lower extremity edema is improving. Urine output improved, she was net negative almost 3 liters. Renal function stable, creatinine 1.4. Hyponatremia improving, sodium 130. The patient is tolerating fluid restriction well. She has been out of bed. She denies lightheadedness or dizziness. Physical Exam 2 Vital Signs (Past 24 Hours): Last Vital Signs Temp 36.6 C 03/20/18 07:19 Pulse 88 03/20/18 07:19 Resp 14 03/20/18 07:19 BP 120/65 03/20/18 07:19 Pulse Ox 91 03/20/18 07:19 Constitutional: WD/WN, vitals as above Respiratory: normal respiratory effort, lungs clear to auscultation Cardiovascular: RRR, no murmur, no edema Neurologic: moves all extremities and awake Psychiatric: A+Ox3, euthymic affect
--- NOTE | 2018-03-20 11:16 | Cardiology Progress Note ---
Date of Service March 20, 2018 Assessment & Plan (1) Chronic combined systolic (congestive) and diastolic (congestive) heart failure: She continues diuresing steadily. Appears only mildly hypervolemic. Agree with transition to oral ethacrynic acid as recommended by nephrology. Creatinine steady and sodium has improved. Continue fluid restriction in the setting of heart failure and hyponatremia. Continue low-sodium diet. (2) CAD (coronary artery disease): Post CABG patient with no angina. Continue anti-platelet therapy if no contraindications. Continue beta-angela. She is intolerant to statin therapy. (3) Ischemic cardiomyopathy: History of ischemic cardiomyopathy with echo this admission showing normal left ventricular systolic function. Can continue beta-angela. Entresto has been discontinued as it was started earlier this hospitalization but her LV systolic function is now normal. She was also hypotensive while on Entresto, which could have contributed to her abnormal renal function. Since her GFR remains above 30 ml/min, could reconsider Entresto as outpatient if recurrent CHF and reduced LVEF (4) Hyponatremia: As per Nephrology. Sodium level is improving. (5) Hypotension: Blood pressure has improved after discontinuation of Entresto. Disposition: Overall, patient is improving. Continue current vasoactive regimen with diuretics as per Nephrology. Subjective Uneventful night. No dyspnea rest. Still has a nonproductive cough which may be worse at night. Continues to diurese, leg edema improving. No chest pain, palpitations, lightheadedness or other cardiopulmonary complaints. Physical Exam 2 Vital Signs (Past 24 Hours): Last Vital Signs Temp 36.6 C 03/20/18 07:19 Pulse 88 03/20/18 07:19 Resp 14 03/20/18 07:19 BP 120/65 03/20/18 07:19 Pulse Ox 91 03/20/18 07:19 Physical Exam: Gen.: No distress. Alert and oriented. HEENT: Unremarkable. Neck: JVP 1/[address] to the angle of the jaw at 90 degrees. Cardiac: Regular rhythm. Normal S1-S2. 1/6 apical holosystolic murmur. No rubs or gallops. Lungs: Rare basilar crackles and dullness at the bases, otherwise clear. Abdomen: Soft, nontender, nondistended, with normoactive bowel sounds. Extremities: Trace to 1+ bilateral lower extremity edema. Good capillary refill. Neuro: alert and interactive, grossly nonfocal. Results & Data Laboratory Results Laboratory Results - last 24 hr 03/19/18 03/19/18 03/19/18 07:06 16:05 19:51 Sodium Potassium Chloride Carbon Dioxide Anion Gap BUN Creatinine Est Cr Clr Drug Dosing Est GFR ( Amer) Est GFR (Non-Af Amer) BUN/Creatinine Ratio Glucose POC Glucose 201 H 131 H Calcium Cortisol AM Sample 13.34 Urine Color Urine Appearance Urine pH Ur Specific [place] Urine Protein Urine Glucose (UA) Urine Ketones Urine Blood Urine Nitrite Urine Bilirubin Urine Urobilinogen Ur Leukocyte Esterase Urine WBC (Auto) Urine RBC (Auto) U Hyaline Cast (Auto) U Epithel Cells (Auto) Urine Bacteria (Auto) 03/20/18 03/20/18 03/20/18 05:39 07:10 07:29 Sodium 130 L Potassium 3.6 D Chloride 92 L Carbon Dioxide 30 Anion Gap 9.0 BUN 46 H Creatinine 1.44 H Est Cr Clr Drug Dosing 48.0 Est GFR ( Amer) 44.1 Est GFR (Non-Af Amer) 38.0 BUN/Creatinine Ratio 31.9 H Glucose 129 H POC Glucose 120 H Calcium 8.6 Cortisol AM Sample Urine Color Yellow Urine Appearance Clear Urine pH 5.5 Ur Specific [place] 1.006 Urine Protein Negative Urine Glucose (UA) Negative Urine Ketones Negative Urine Blood Trace H Urine Nitrite Negative Urine Bilirubin Negative Urine Urobilinogen Negative Ur Leukocyte Esterase 1+ H Urine WBC (Auto) 0 Urine RBC (Auto) 0-4 U Hyaline Cast (Auto) 1-5 U Epithel Cells (Auto) 5-10 H Urine Bacteria (Auto) Negative Diagnostic Findings Monitor with sinus rhythm. _ (1) CAD (coronary artery disease) Coronary Disease-Associated Artery/Lesion type: [place] artery [place] vs. transplanted heart: [place] heart Associated angina: without angina Qualified Code(s): I25.10 - Atherosclerotic heart disease of [place] coronary artery without angina pectoris
[2018-03-20] MEDS: ETHACRYNIC ACID 25 MG TAB PO SCH ×2 (11:22→22:41)
--- NOTE | 2018-03-20 17:27 | Hospitalist Progress Note ---
Date of Service March 20, 2018 Assessment & Plan (1) Pleural effusion: CT chest showed small left and moderate right pleural effusions. CT abd/chest showed Fluid overload manifested by bilateral pleural effusions with moderate body wall edema and trace abdominal pelvic ascites. S/P thoracentesis where 1.3L pleural fluid removed Pulmonology on board Clinically improved significantly Stable (2) Acute systolic CHF (congestive heart failure), NYHA class 3: History of ischemic cardiomyopathy with combined systolic and diastolic heart failure, Presented with decompensated CHF with weight gain, dyspnea on exertion, orthopnea Lasix/sulfa allergies S/P thoracentesis done Cardiology on board Starting on Zaroxolyn and Entresto Continue to monitor volume status 03/20 Clinically improved Creatinine stable at 1.4 ECHO done today showed no wall motion abnormality, EF 55-60 % Entresto was discontinued since ECHO showed preserve EF Continue carvedilol BID Ethacrynate changed to oral BID Continue fluid restriction Negative balance of 4L ( Good output) Continue monitor (3) Hypotension: Continue Carvedilol Entresto was discontinued Monitor BP closely (4) Hyponatremia: Mostly related to diuretic (Zaroxolyn) and Entresto Na dropped 129-->126--> 125-->123-->128-->130 today Ethacrynate changed to oral Case discussed with Nephrologoly Continue fluid restriction to 1L Monitor BMP (5) Toe ulcer due to DM: Has chronic left foot diabetic toe ulcer Follows with Dr. Donald outpatient for Ortho on board stable (6) BLANCA (acute kidney injury): (7) Stage III chronic kidney disease: Mostly related to diuretic and Entresto Entresto d/c Creatinine 1.4 today Monitor BMP Stable (8) DM type 2 (diabetes mellitus, type 2): Insulin sliding scale Monitor BS (9) CAD (coronary artery disease): Elevated troponin due to CHF decompensated with biventricular failure EKG showed no ischemic changes Troponin tending down On plavix, aspirin and carvedilol Stable (10) Ischemic cardiomyopathy: Severe ischemic cardiomyopathy with biventricular failure Presented with decompensated CHF Volume status improved after diuresis/thoracentesis Metolazone on hold (11) GERD (gastroesophageal reflux disease): Continue PPI (12) DVT prophylaxis: Subcu heparin (13) Discharge planning issues: Waiting for placement to discharge referral made to [facility] Possible discharge tomorrow if stable for cardiac and nephrology standpoint Subjective Pt was seen and examined Lying in bed with no distress Pt said that she feels much better Denies any diarrhea, chest pain and palpitation Physical Exam 2 Vital Signs (Past 24 Hours): Last Vital Signs Temp 36.5 C 03/20/18 16:15 Pulse 79 03/20/18 16:15 Resp 16 03/20/18 16:15 BP 99/61 L 03/20/18 16:15 Pulse Ox 97 03/20/18 16:15 Physical Exam: General- No acute distress Head- atraumatic Eyes- PERRL, EOMI, ENT- oropharynx clear Neck- supple, no JVD Lungs- Diminish breath sound Heart- regular rhythm; no murmur Abdomen- normal bowel sounds, soft Extremities- no calf tenderness, +edema Neuro- alert, oriented x 3; PERRL, EOMI; no facial palsy; no dysarthria Skin- warm & dry _ (1) DM type 2 (diabetes mellitus, type 2) Chronic kidney disease stage: stage 3 (moderate) Diabetes mellitus complication detail: with chronic kidney disease Diabetes mellitus complication status: with kidney complications Diabetes mellitus [facility] insulin use: unspecified [facility] insulin use status Diabetes mellitus macular edema: Diabetic retinopathy severity: Laterality: Proliferative retinopathy type: Qualified Code(s): E11.22 - Type 2 diabetes mellitus with diabetic chronic kidney disease; N18.3 - Chronic kidney disease, stage 3 ( moderate) (2) CAD (coronary artery disease) Associated angina: without angina Coronary Disease-Associated Artery/Lesion type: [place] artery [place] vs. transplanted heart: [place] heart Qualified Code (s): I25.10 - Atherosclerotic heart disease of [place] coronary artery without angina pectoris (3) Toe ulcer due to DM Diabetes mellitus type: type 2 Laterality: left Non-pressure ulcer stage: limited to breakdown of skin Qualified Code(s): E11.621 - Type 2 diabetes mellitus with foot ulcer; L97.521 - Non-pressure chronic ulcer of other part of left foot limited to breakdown of skin (4) GERD (gastroesophageal reflux disease) Esophagitis presence: esophagitis presence not specified Qualified Code(s): K21.9 - Gastro-esophageal reflux disease without esophagitis
[2018-03-20] MEDS: MIRTAZAPINE TAB 15 MG TAB PO SCH (22:40)
[2018-03-20] MEDS: PRAMIPEXOLE DIHYDROCHLO 0.25 MG TAB PO SCH (22:41)
[2018-03-21] MEDS: LEVOTHYROXINE SODIUM 150 MCG TABLET PO SCH (06:12)
[2018-03-21] MEDS: HEPARIN SOD 5,000 UNIT/0.5 ML VIAL SQ SCH ×3 (06:12→20:58)
[2018-03-21 07:05] LABS: BUN Creatinine Ratio 33.9 (10-20); Calcium 8.9 mg/dl (8.5-10.1); Creatinine Clr Calc Pharmacy 51.6 ml/min; Est GFR (African American) 49.9; Potassium 3.2 mmol/L (3.5-5.1)
[2018-03-21] MEDS: INSULIN ASPART 100 UNITS/ML 3 ML PEN SC SCH ×4 (07:58→20:46)
[2018-03-21] MEDS: INSULIN GLARGINE SOLOSTAR 100 UNITS/ML 3 ML PEN SC SCH ×2 (07:59→20:45)
[2018-03-21] MEDS: CARVEDILOL 6.25 MG TAB PO SCH ×2 (08:03→20:44)
[2018-03-21] MEDS: ASPIRIN 81 MG ECTAB PO SCH (08:04)
[2018-03-21] MEDS: MAGNESIUM OXIDE 400 MG TAB PO SCH ×2 (08:04→20:44)
[2018-03-21] MEDS: ETHACRYNIC ACID 25 MG TAB PO SCH ×2 (08:04→20:43)
[2018-03-21] MEDS: OXYBUTYNIN CHLORIDE 5 MG TAB PO SCH ×2 (08:05→20:44)
[2018-03-21] MEDS: CLOPIDOGREL BISULFATE 75 MG TAB PO SCH (08:05)
[2018-03-21] MEDS: CEROVITE ADV FORMULA TAB PO SCH (08:05)
[2018-03-21] MEDS: VENLAFAXINE HCL XR 150 MG CAPXR PO SCH (08:05)
[2018-03-21] MEDS: PREGABALIN 150 MG CAP PO SCH ×2 (08:09→20:55)
[2018-03-21] MEDS ORDERED: POTASSIUM CHLORIDE 20 MEQ TABCR PO STA (09:37)
--- NOTE | 2018-03-21 10:33 | Nephrology Progress Note ---
Date of Service March 21, 2018 Assessment & Plan (1) Hyponatremia: -- Improving -- Continue diuretics to encourage net negative fluid balance (avoid thiazide type diuretics). -- decrease Ethacrynic acid to 25 mg BID, aim for 0.5-1 liter negative per 24 hour --suggest evaluation by an apple press operator as an outpatient to define the nature of allergy with Lasix and Bumex -- Maintain 1.2 L daily fluid restriction -- Document I/O's and daily metabolic profile Will follow (2) Acute kidney injury superimposed on CKD: -- Creatinine stable -- UOP improved -- Low K diet -- Urine sediment is acellular -- Repeat urine studies negative for protein, suggesting that +4 protein reported on UA was not accurate -- Abdominal CT 03/11/18 with bilateral renal cortical scarring. No hydronephrosis (3) Chronic combined systolic (congestive) and diastolic (congestive) heart failure: -- TTE demonstrated improved LV systolic function, Entresto has been stopped -- Potassium improving and the addition of a K-sparing diuretic may be considered in the future as needed Yadira Gorman was seen examined in her room this morning. No acute events overnight. Claudia feels well this morning. Lower extremity edema resolved. Urine output improved, she was net negative almost 4 liters on oral Ethacrynic acid. Renal function stable, creatinine 1.3. Hyponatremia improving, sodium 132, K low. The patient is tolerating fluid restriction well. She has been out of bed. She denies lightheadedness or dizziness. Physical Exam 2 Vital Signs (Past 24 Hours): Last Vital Signs Temp 36.8 C 03/21/18 07:51 Pulse 68 03/21/18 07:51 Resp 18 03/21/18 07:51 BP 115/66 03/21/18 07:51 Pulse Ox 98 03/21/18 07:51 Constitutional: WD/WN, vitals as above Respiratory: normal respiratory effort, lungs clear to auscultation Cardiovascular: RRR, no murmur, no edema Neurologic: moves all extremities and awake Psychiatric: A+Ox3, euthymic affect
--- NOTE | 2018-03-21 14:32 | Cardiology Progress Note ---
Date of Service March 21, 2018 Assessment & Plan (1) Chronic combined systolic (congestive) and diastolic (congestive) heart failure: She continues diuresing steadily (3 L negative overnight). Appears near euvolemic. Transitioned to oral ethacrynic acid, dosing adjusted downward as she approaches euvolemia. Renal function stable. (2) CAD (coronary artery disease): Post CABG patient with no angina. Continue anti-platelet therapy if no contraindications. Continue beta-angela. She is intolerant to statin therapy. (3) Ischemic cardiomyopathy: (4) Hyponatremia: (5) Hypotension: Subjective Uneventful night. No dyspnea rest. Her cough is significantly improving. Continues to diurese, leg edema improving. No chest pain, palpitations, lightheadedness or other cardiopulmonary complaints. Physical Exam 2 Vital Signs (Past 24 Hours): Last Vital Signs Temp 36.9 C 03/21/18 12:00 Pulse 69 03/21/18 12:00 Resp 18 03/21/18 12:00 BP 121/63 03/21/18 12:00 Pulse Ox 99 03/21/18 12:00 Physical Exam: Gen.: No distress. Alert and oriented. I/O= -3025 HEENT: Unremarkable. Neck: JVP less than 1/[address] to the angle of the jaw at 90 degrees. Cardiac: Regular rhythm. Normal S1-S2. 1/6 apical holosystolic murmur. No rubs or gallops. Lungs: Rare basilar crackles and dullness at the bases, otherwise clear. Abdomen: Soft, nontender, nondistended, with normoactive bowel sounds. Extremities: Trace to 1+ bilateral lower extremity edema. Good capillary refill. Neuro: alert and interactive, grossly nonfocal. Results & Data Laboratory Results Potassium 3.2. BUN 44, creatinine 1.3 (down from 46 and 1.44). _ (1) CAD (coronary artery disease) Coronary Disease-Associated Artery/Lesion type: [place] artery [place] vs. transplanted heart: [place] heart Associated angina: without angina Qualified Code(s): I25.10 - Atherosclerotic heart disease of [place] coronary artery without angina pectoris
--- NOTE | 2018-03-21 17:21 | Hospitalist Progress Note ---
Date of Service March 21, 2018 Assessment & Plan (1) Pleural effusion: CT chest showed small left and moderate right pleural effusions. CT abd/chest showed Fluid overload manifested by bilateral pleural effusions with moderate body wall edema and trace abdominal pelvic ascites. S/P thoracentesis where 1.3L pleural fluid removed Pulmonology on board Clinically improved significantly Stable (2) Acute systolic CHF (congestive heart failure), NYHA class 3: History of ischemic cardiomyopathy with combined systolic and diastolic heart failure, Presented with decompensated CHF with weight gain, dyspnea on exertion, orthopnea Lasix/sulfa allergies S/P thoracentesis done Cardiology on board Starting on Zaroxolyn and Entresto Continue to monitor volume status Clinically improved Creatinine stable at 1.4 ECHO done today showed no wall motion abnormality, EF 55-60 % Entresto was discontinued since ECHO showed preserve EF Continue carvedilol BID Ethacrynate changed to oral BID Continue fluid restriction Negative balance of 4L ( Good output) Continue monitor (3) Hypotension: Continue Carvedilol Entresto was discontinued Monitor BP closely (4) Hyponatremia: improved Mostly related to diuretic (Zaroxolyn) and Entresto Na dropped 129-->126--> 125-->123-->128-->130 Ethacrynate changed to oral Case discussed with Nephrologoly Continue fluid restriction to 1L Monitor BMP (5) Toe ulcer due to DM: Has chronic left foot diabetic toe ulcer Follows with Dr. Donald outpatient for Ortho on board stable (6) BLANCA (acute kidney injury): (7) Stage III chronic kidney disease: Mostly related to diuretic and Entresto Entresto d/c Creatinine 1.4 today Monitor BMP Stable (8) DM type 2 (diabetes mellitus, type 2): Insulin sliding scale Monitor BS (9) CAD (coronary artery disease): Elevated troponin due to CHF decompensated with biventricular failure EKG showed no ischemic changes Troponin tending down On plavix, aspirin and carvedilol Stable (10) Ischemic cardiomyopathy: Severe ischemic cardiomyopathy with biventricular failure Presented with decompensated CHF Volume status improved after diuresis/thoracentesis (11) GERD (gastroesophageal reflux disease): Continue PPI (12) DVT prophylaxis: Subcu heparin (13) Discharge planning issues: Waiting for placement to discharge referral made to [facility] Possible discharge tomorrow if stable for cardiac and nephrology standpoint Subjective Complains of ongoing diarrhea, denies of any shortness of breath, no orthopnea Physical Exam 2 Vital Signs (Past 24 Hours): Last Vital Signs Temp 37.2 C 03/21/18 15:24 Pulse 84 03/21/18 15:24 Resp 20 03/21/18 15:24 BP 96/61 L 03/21/18 15:24 Pulse Ox 92 03/21/18 15:24 Constitutional: WD/WN, vitals as above Eyes: PERRL, conjunctivae normal, anicteric sclerae ENMT: external ear and nose normal, oropharynx normal Neck: trachea midline, no thyromegaly Respiratory: normal respiratory effort; no respiratory distress Auscultation: + diminished lung sounds; no crackles, no rales and no wheezes Cardiovascular: Rate/Rhythm: regular rate and regular rhythm Gastrointestinal (Abdomen): normal bowel sounds, soft, nontender, no hepatosplenomegaly Musculoskeletal: Head/Neck/Chest: normocephalic and head atraumatic Skin: no rashes, warm and dry Neurologic: PERRL, EOMI, accommodation nl, no face palsy, no dysarthria Psychiatric: A+Ox3, euthymic affect _ (1) DM type 2 (diabetes mellitus, type 2) Chronic kidney disease stage: stage 3 (moderate) Diabetes mellitus complication detail: with chronic kidney disease Diabetes mellitus complication status: with kidney complications Diabetes mellitus half-way insulin use: unspecified home theater specialist insulin use status Diabetes mellitus macular edema: Diabetic retinopathy severity: Laterality: Proliferative retinopathy type: Qualified Code(s): E11.22 - Type 2 diabetes mellitus with diabetic chronic kidney disease; N18.3 - Chronic kidney disease, stage 3 ( moderate) (2) CAD (coronary artery disease) Associated angina: without angina Coronary Disease-Associated Artery/Lesion type: [place] artery [place] vs. transplanted heart: [place] heart Qualified Code (s): I25.10 - Atherosclerotic heart disease of [place] coronary artery without angina pectoris (3) Toe ulcer due to DM Diabetes mellitus type: type 2 Laterality: left Non-pressure ulcer stage: limited to breakdown of skin Qualified Code(s): E11.621 - Type 2 diabetes mellitus with foot ulcer; L97.521 - Non-pressure chronic ulcer of other part of left foot limited to breakdown of skin (4) GERD (gastroesophageal reflux disease) Esophagitis presence: esophagitis presence not specified Qualified Code(s): K21.9 - Gastro-esophageal reflux disease without esophagitis
[2018-03-21] MEDS: PRAMIPEXOLE DIHYDROCHLO 0.25 MG TAB PO SCH (20:43)
[2018-03-21] MEDS: MIRTAZAPINE TAB 15 MG TAB PO SCH (20:45)
[2018-03-21] MEDS: TRAMADOL HCL 50 MG TABLET PO PRN (20:55)
[2018-03-22] MEDS: HEPARIN SOD 5,000 UNIT/0.5 ML VIAL SQ SCH ×3 (05:44→21:57)
[2018-03-22] MEDS: LEVOTHYROXINE SODIUM 150 MCG TABLET PO SCH (05:45)
[2018-03-22 07:51] LABS: Albumin Level 2.9 gm/dl (3.4-5.0); BUN Creatinine Ratio 28.3 (10-20); Calcium 8.7 mg/dl (8.5-10.1); Creatinine Clr Calc Pharmacy 43.3 ml/min; Est GFR (African American) 40.9; Est GFR (Non-African American) 35.3; Magnesium 1.4 mg/dl (1.8-2.4); Phosphorus 3.1 mg/dl (2.5-4.9); Potassium 3.3 mmol/L (3.5-5.1)
[2018-03-22] MEDS: ETHACRYNIC ACID 25 MG TAB PO SCH (09:04)
[2018-03-22] MEDS: INSULIN GLARGINE SOLOSTAR 100 UNITS/ML 3 ML PEN SC SCH ×2 (09:07→20:49)
[2018-03-22] MEDS: INSULIN ASPART 100 UNITS/ML 3 ML PEN SC SCH ×4 (09:08→20:50)
[2018-03-22] MEDS: CARVEDILOL 6.25 MG TAB PO SCH ×2 (09:09→20:46)
[2018-03-22] MEDS: MAGNESIUM OXIDE 400 MG TAB PO SCH ×2 (09:10→20:46)
[2018-03-22] MEDS: CEROVITE ADV FORMULA TAB PO SCH (09:10)
[2018-03-22] MEDS: CLOPIDOGREL BISULFATE 75 MG TAB PO SCH (09:10)
[2018-03-22] MEDS: VENLAFAXINE HCL XR 150 MG CAPXR PO SCH (09:10)
[2018-03-22] MEDS: OXYBUTYNIN CHLORIDE 5 MG TAB PO SCH ×2 (09:10→20:45)
[2018-03-22] MEDS: ASPIRIN 81 MG ECTAB PO SCH (09:10)
[2018-03-22] MEDS: TRAMADOL HCL 50 MG TABLET PO PRN (09:18)
[2018-03-22] MEDS: PREGABALIN 150 MG CAP PO SCH ×2 (09:18→20:51)
--- NOTE | 2018-03-22 09:50 | Nephrology Progress Note ---
Date of Service March 22, 2018 Assessment & Plan (1) Hyponatremia: -- Resolved, avoid thiazide type diuretics. -- hold Ethacrynic acid as she seems to be getting volume depleted, with persistent net negative over last few days and ongoing diarrhea. Her weight is down to 98 kg from 112 kg a week ago --replace potassium with 40 mEq potassium chloride x1 dose -- change fluid restriction to 1.5 liter a day -- Document I/O's and daily metabolic profile Will follow (2) Acute kidney injury superimposed on CKD: -- Creatinine stable -- UOP improved -- Low K diet -- Urine sediment is acellular -- Repeat urine studies negative for protein, suggesting that +4 protein reported on UA was not accurate -- Abdominal CT 03/11/18 with bilateral renal cortical scarring. No hydronephrosis (3) Chronic combined systolic (congestive) and diastolic (congestive) heart failure: -- TTE demonstrated improved LV systolic function, Entresto has been stopped -- Potassium improving and the addition of a K-sparing diuretic may be considered in the future as needed Subjective Claudia was seen and examined in her room this morning. No acute events overnight. Claudia feels well this morning. Lower extremity edema resolved. Urine output improved, her weight down to 98 kg from 112 kg. Seems to be getting volume depleted, creatinine slightly worsened to 1.5, with metabolic alkalosis and hypoaklemia. Has been having diarrhea since yesterday. Having pain and swelling at rt forearm and hand IV site. Physical Exam 2 Vital Signs (Past 24 Hours): Last Vital Signs Temp 37.8 C H 03/22/18 07:27 Pulse 89 03/22/18 07:27 Resp 20 03/22/18 07:27 BP 122/66 03/22/18 07:27 Pulse Ox 90 03/22/18 07:27 Constitutional: WD/WN, vitals as above Respiratory: normal respiratory effort, lungs clear to auscultation Cardiovascular: RRR, no murmur, no edema Neurologic: moves all extremities and awake Psychiatric: A+Ox3, euthymic affect
[2018-03-22] MEDS ORDERED: POTASSIUM CHLORIDE 20 MEQ TABCR PO ONE (10:00)
[2018-03-22] MEDS ORDERED: ECONAZOLE NITRATE 1% CRM 15 GM TUBE TOP PRN (16:41)
--- NOTE | 2018-03-22 16:44 | Hospitalist Progress Note ---
Date of Service March 22, 2018 Assessment & Plan (1) Complication of intravenous catheter site: developed redness , pain and swelling at rt hand IV site possible infiltration IV removed yesterday ordered cold compression , with no improvement pt says , the weight of cold compress is too painful no fever or chills no open wounds ordered for USG to r/o thrombophlebitis keep limb elevated pain control use hot compression as needed Present on Admission?: No (2) Pleural effusion: CT chest showed small left and moderate right pleural effusions. CT abd/chest showed Fluid overload manifested by bilateral pleural effusions with moderate body wall edema and trace abdominal pelvic ascites. S/P thoracentesis where 1.3L pleural fluid removed Pulmonology on board Clinically improved significantly Stable (3) Acute systolic CHF (congestive heart failure), NYHA class 3: stable no complain of orthpea History of ischemic cardiomyopathy with combined systolic and diastolic heart failure, Presented with decompensated CHF with weight gain, dyspnea on exertion, orthopnea Lasix/sulfa allergies S/P thoracentesis done Cardiology on board Starting on Zaroxolyn and Entresto Continue to monitor volume status Clinically improved Creatinine stable at 1.4 ECHO showed no wall motion abnormality, EF 55-60 % Entresto was discontinued since ECHO showed preserve EF Continue carvedilol BID Continue fluid restriction 1.5 L Negative balance of 4L ( Good output) Continue monitor (4) Hypotension: BP improved after holding diuretics cont to monitor on Coreg (5) Hyponatremia: improved Mostly related to diuretic (Zaroxolyn) and Entresto Ethacrynate on hold appreciate input from Nephrology avoid HCTZ monitor vol status fluid restriction 1.5 L daily (6) Toe ulcer due to DM: Has chronic left foot diabetic toe ulcer Follows with Dr. Donald outpatient for Ortho on board-no procedure indicated stable (7) BLANCA (acute kidney injury): presented with acute renal failure renal function improved to baseline all diuretics on hold appreciate input from Nephrology (8) Stage III chronic kidney disease: Mostly related to diuretic and Entresto Entresto d/c renal function at baseline appreciate Nephro input (9) DM type 2 (diabetes mellitus, type 2): Insulin sliding scale Monitor BS (10) CAD (coronary artery disease): no complain of angina no Tariq Elevated troponin due to CHF decompensated with biventricular failure EKG showed no ischemic changes Troponin tending down On plavix, aspirin and carvedilol Stable (11) Ischemic cardiomyopathy: Severe ischemic cardiomyopathy with biventricular failure Presented with decompensated CHF Volume status improved after diuresis/thoracentesis (12) GERD (gastroesophageal reflux disease): Continue PPI (13) DVT prophylaxis: Subcu heparin (14) Discharge planning issues: accepted at [facility] for SNF transfer on hold today for Rt hand pain /swelling Sister will provide transport updated Subjective complains of pain and swelling of rt wrist had infiltrated IV site yesterday line was removed continued to have pain , minimum movement no fever or chills no complain of SOB or TARIQ no diarrhea Physical Exam 2 Vital Signs (Past 24 Hours): Last Vital Signs Temp 38.0 C H 03/22/18 15:53 Pulse 90 03/22/18 15:53 Resp 18 03/22/18 15:53 BP 90/57 L 03/22/18 15:53 Pulse Ox 91 03/22/18 15:53 Constitutional: WD/WN, vitals as above Eyes: PERRL, conjunctivae normal, anicteric sclerae ENMT: external ear and nose normal, oropharynx normal Neck: trachea midline, no thyromegaly Respiratory: normal respiratory effort; no respiratory distress Auscultation: + diminished lung sounds; no crackles, no rales and no wheezes Cardiovascular: Rate/Rhythm: regular rate and regular rhythm Gastrointestinal (Abdomen): normal bowel sounds, soft, nontender, no hepatosplenomegaly Musculoskeletal: Extremities: + limited ROM of upper extremity and + hand abnormality (swelling of rt hand extening form wrist to mid arm , red , + tenderness -site of prior IV site ) Right Skin: no rashes, warm and dry Neurologic: PERRL, EOMI, accommodation nl, no face palsy, no dysarthria Psychiatric: A+Ox3, euthymic affect _ (1) DM type 2 (diabetes mellitus, type 2) Chronic kidney disease stage: stage 3 (moderate) Diabetes mellitus complication detail: with chronic kidney disease Diabetes mellitus complication status: with kidney complications 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 transplanted heart: [place] heart Qualified Code (s): I25.10 - Atherosclerotic heart disease of [place] coronary artery without angina pectoris (3) Toe ulcer due to DM Diabetes mellitus type: type 2 Laterality: left Non-pressure ulcer stage: limited to breakdown of skin Qualified Code(s): E11.621 - Type 2 diabetes mellitus with foot ulcer; L97.521 - Non-pressure chronic ulcer of other part of left foot limited to breakdown of skin (4) GERD (gastroesophageal reflux disease) Esophagitis presence: esophagitis presence not specified Qualified Code(s): K21.9 - Gastro-esophageal reflux disease without esophagitis (5) Hypotension Hypotension type: unspecified hypotension type Qualified Code(s): I95.9 - Hypotension, unspecified
[2018-03-22] MEDS ORDERED: VANCOMYCIN CONSULT ACTIVE PRN (18:33)
[2018-03-22] MEDS ORDERED: ACETAMINOPHEN 500 MG TAB PO STA (18:41)
[2018-03-22] MEDS ORDERED: VANCOMYCIN CONSULT ACTIVE SCH (18:45)
[2018-03-22] MEDS ORDERED: VANCOMYCIN HCL 500 MG in SODIUM CHLORIDE 0.9% 250 ML IV SCH (18:45)
[2018-03-22] MEDS ORDERED: VANCOMYCIN HCL 2,000 MG in SODIUM CHLORIDE 0.9% 500 ML IV ONE (19:45)
[2018-03-22] MEDS: MIRTAZAPINE TAB 15 MG TAB PO SCH (20:46)
[2018-03-22] MEDS: PRAMIPEXOLE DIHYDROCHLO 0.25 MG TAB PO SCH (20:46)
[2018-03-22] MEDS ORDERED: IBUPROFEN 200 MG TAB PO STA (21:41)
[2018-03-23] MEDS: HEPARIN SOD 5,000 UNIT/0.5 ML VIAL SQ SCH ×3 (06:02→21:41)
[2018-03-23] MEDS: LEVOTHYROXINE SODIUM 150 MCG TABLET PO SCH (06:03)
--- NOTE | 2018-03-23 06:56 | Ultrasound Report ---
US venous doppler UE RT CLINICAL HISTORY: right arm pain /IV site COMPARISON STUDY: No previous studies for comparison. FINDINGS: No deep venous thrombus within the right upper extremity is noted. Note is made of a short segment occlusive thrombus within a superficial vein along the right posterior wrist. No additional s ites of venous thrombus are identified within the right upper extremity. There is a nonspecific promi nent right inferior neck node measures 1.5 x 0.9 x 0.7 cm. IMPRESSION: 1. No deep venous thrombus within the right upper extremity. 2. Short segment occlusive superficial thrombus within a superficial vein of the posterior right wri st. 3. Prominent right inferior cervical lymph node. This is indeterminate and a follow-up ultrasound in 3 months to ensure stability is recommended. Electronically signed by: Rodriguez Bauer M.D. 03/23/2018 6:55 AM
[2018-03-23 07:04] LABS: Albumin Level 2.8 gm/dl (3.4-5.0); BUN Creatinine Ratio 27.7 (10-20); Calcium 7.9 mg/dl (8.5-10.1); Creatinine Clr Calc Pharmacy 35.4 ml/min; Est GFR (African American) 32.1; Est GFR (Non-African American) 27.7; Phosphorus 3.3 mg/dl (2.5-4.9); Potassium 3.9 mmol/L (3.5-5.1)
[2018-03-23] MEDS ORDERED: METFORMIN HCL 500 MG TAB PO SCH (07:30)
[2018-03-23] MEDS: INSULIN ASPART 100 UNITS/ML 3 ML PEN SC SCH ×4 (08:20→20:45)
[2018-03-23] MEDS: INSULIN GLARGINE SOLOSTAR 100 UNITS/ML 3 ML PEN SC SCH ×2 (08:22→20:47)
[2018-03-23] MEDS: VENLAFAXINE HCL XR 150 MG CAPXR PO SCH (08:26)
[2018-03-23] MEDS: CEROVITE ADV FORMULA TAB PO SCH (08:26)
[2018-03-23] MEDS: PREGABALIN 150 MG CAP PO SCH ×2 (08:26→20:40)
[2018-03-23] MEDS: CLOPIDOGREL BISULFATE 75 MG TAB PO SCH (08:27)
[2018-03-23] MEDS: OXYBUTYNIN CHLORIDE 5 MG TAB PO SCH ×2 (08:27→20:41)
[2018-03-23] MEDS: CARVEDILOL 6.25 MG TAB PO SCH ×2 (08:27→20:41)
[2018-03-23] MEDS: MAGNESIUM OXIDE 400 MG TAB PO SCH ×2 (08:28→20:42)
[2018-03-23] MEDS: ASPIRIN 81 MG ECTAB PO SCH (08:28)
--- NOTE | 2018-03-23 09:58 | Nephrology Progress Note ---
Date of Service March 23, 2018 Assessment & Plan (1) Hyponatremia: -- Improved, but Na slightly dropped again to 134<--136 -- continue to hold Ethacrynic acid as she seems to be getting volume depleted , with persistent net negative over last few days. However, renal function continued to worsen off of diuretics and more liberal fluid intake making assessment of volume status difficult --will consider starting on IV NS at 75 ml/h and monitor for next 24 h. If renal function continue to worsen, it would be reasonable to consider right heart cath for better assessment of volume status -- Document I/O's strictly and daily metabolic profile Will follow (2) Acute kidney injury superimposed on CKD: -- Repeat urine studies negative for protein, suggesting that +4 protein reported on UA was not accurate -- Abdominal CT 03/11/18 with bilateral renal cortical scarring. No hydronephrosis (3) Chronic combined systolic (congestive) and diastolic (congestive) heart failure: -- TTE demonstrated improved LV systolic function, Entresto has been stopped -- Potassium improving and the addition of a K-sparing diuretic may be considered in the future as needed Subjective Claudia was seen and examined in her room this morning. No acute events overnight. Claudia feels well this morning. Lower extremity edema resolved. Renal function continues to worsen off of diuretics since yesterday, UO has been low. BP stable. Diarrhea resolved. Physical Exam 2 Vital Signs (Past 24 Hours): Last Vital Signs Temp 36.9 C 03/23/18 07:26 Pulse 81 03/23/18 07:26 Resp 22 03/23/18 07:26 BP 114/71 03/23/18 07:26 Pulse Ox 91 03/23/18 07:26 Constitutional: WD/WN, vitals as above Respiratory: normal respiratory effort, lungs clear to auscultation Cardiovascular: RRR, no murmur, no edema Vessels: + JVD Neurologic: moves all extremities and awake Psychiatric: A+Ox3, euthymic affect
[2018-03-23] MEDS: SODIUM CHLORIDE 0.9% 1000ML 1,000 ML IV SCH (10:55)
[2018-03-23] MEDS ORDERED: VANCOMYCIN HCL 1,500 MG in SODIUM CHLORIDE 0.9% 500 ML IV ONE (12:00)
[2018-03-23] MEDS ORDERED: DAPTOMYCIN CONSULT ACTIVE PRN (14:50)
--- NOTE | 2018-03-23 18:13 | Hospitalist Progress Note ---
Date of Service March 23, 2018 Assessment & Plan (1) Gram-positive bacteremia: possible source infection /cellulitis on rt arm IV site area blood culture X2 gram positive bacteremia MRSA screen positive Abx changed to daptomycin ID eval erquested (2) Complication of intravenous catheter site: developed redness , pain and swelling at rt hand IV site possible infiltration USG of rt arm shows superficial venous thrombosis , cont symtomaic management keep limb elevated pain control (3) Pleural effusion: CT chest showed small left and moderate right pleural effusions. CT abd/chest showed Fluid overload manifested by bilateral pleural effusions with moderate body wall edema and trace abdominal pelvic ascites. S/P thoracentesis where 1.3L pleural fluid removed Pulmonology on board Clinically improved significantly Stable (4) Acute systolic CHF (congestive heart failure), NYHA class 3: stable no complain of orthpea History of ischemic cardiomyopathy with combined systolic and diastolic heart failure, Presented with decompensated CHF with weight gain, dyspnea on exertion, orthopnea Lasix/sulfa allergies S/P thoracentesis done Cardiology on board Starting on Zaroxolyn and Entresto Continue to monitor volume status Clinically improved Creatinine stable at 1.4 ECHO showed no wall motion abnormality, EF 55-60 % Entresto was discontinued since ECHO showed preserve EF Continue carvedilol BID Continue fluid restriction 1.5 L Negative balance of 4L ( Good output) Continue monitor (5) Hypotension: BP improved after holding diuretics cont to monitor on Coreg (6) Hyponatremia: improved Mostly related to diuretic (Zaroxolyn) and Entresto Ethacrynate on hold appreciate input from Nephrology avoid HCTZ monitor vol status fluid restriction 1.5 L daily (7) Toe ulcer due to DM: Has chronic left foot diabetic toe ulcer Follows with Dr. Donald outpatient for Ortho on board-no procedure indicated stable (8) BLANCA (acute kidney injury): cr continued to worsen ordered for IVF cont to hold diuretics appreciate input from Nephrology (9) Stage III chronic kidney disease: Mostly related to diuretic and Entresto Entresto d/c renal function at baseline appreciate Nephro input (10) DM type 2 (diabetes mellitus, type 2): Insulin sliding scale Monitor BS (11) CAD (coronary artery disease): no complain of angina no [place] Elevated troponin due to CHF decompensated with biventricular failure EKG showed no ischemic changes Troponin tending down On plavix, aspirin and carvedilol Stable (12) Ischemic cardiomyopathy: Severe ischemic cardiomyopathy with biventricular failure Presented with decompensated CHF Volume status improved after diuresis/thoracentesis (13) GERD (gastroesophageal reflux disease): Continue PPI (14) DVT prophylaxis: Subcu heparin (15) Discharge planning issues: pt needs continued hospital stay for infection /gram positive bactermia Subjective spiked temp blood cultures X2 positive for gram positive cocci pt started on Vancomycin later changed to Daptomycin pt reports pain on rt hand and arm still persists Physical Exam 2 Vital Signs (Past 24 Hours): Last Vital Signs Temp 37.8 C H 03/23/18 15:52 Pulse 85 03/23/18 15:52 Resp 18 03/23/18 15:52 BP 100/66 03/23/18 15:52 Pulse Ox 93 03/23/18 15:52 Constitutional: WD/WN, vitals as above Eyes: PERRL, conjunctivae normal, anicteric sclerae ENMT: external ear and nose normal, oropharynx normal Neck: trachea midline, no thyromegaly Respiratory: normal respiratory effort; no respiratory distress Auscultation: + diminished lung sounds; no crackles, no rales and no wheezes Cardiovascular: Rate/Rhythm: regular rate and regular rhythm Gastrointestinal (Abdomen): normal bowel sounds, soft, nontender, no hepatosplenomegaly Musculoskeletal: Head/Neck/Chest: normocephalic and head atraumatic Extremities: + limited ROM of upper extremity and + hand abnormality (swelling of rt hand extening form wrist to mid arm , red , + tenderness -site of prior IV site ) Skin: no rashes, warm and dry Neurologic: PERRL, EOMI, accommodation nl, no face palsy, no dysarthria Psychiatric: A+Ox3, euthymic affect _ (1) DM type 2 (diabetes mellitus, type 2) Chronic kidney disease stage: stage 3 (moderate) Diabetes mellitus complication detail: with chronic kidney disease Diabetes mellitus complication status: with kidney complications 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 transplanted heart: [place] heart Qualified Code (s): I25.10 - Atherosclerotic heart disease of [place] coronary artery without angina pectoris (3) Toe ulcer due to DM Diabetes mellitus type: type 2 Laterality: left Non-pressure ulcer stage: limited to breakdown of skin Qualified Code(s): E11.621 - Type 2 diabetes mellitus with foot ulcer; L97.521 - Non-pressure chronic ulcer of other part of left foot limited to breakdown of skin (4) GERD (gastroesophageal reflux disease) Esophagitis presence: esophagitis presence not specified Qualified Code(s): K21.9 - Gastro-esophageal reflux disease without esophagitis (5) Hypotension Hypotension type: unspecified hypotension type Trimester: Qualified Code(s) : I95.9 - Hypotension, unspecified
[2018-03-23] MEDS: PRAMIPEXOLE DIHYDROCHLO 0.25 MG TAB PO SCH (20:43)
[2018-03-23] MEDS: MIRTAZAPINE TAB 15 MG TAB PO SCH (20:48)
[2018-03-23] MEDS: DAPTOmycin 450 MG in SYRINGE 0 ML IV SCH (21:38)
[2018-03-24] MEDS: SODIUM CHLORIDE 0.9% 1000ML 1,000 ML IV SCH ×2 (00:51→13:12)
[2018-03-24] MEDS: HEPARIN SOD 5,000 UNIT/0.5 ML VIAL SQ SCH ×3 (06:05→20:59)
[2018-03-24] MEDS: LEVOTHYROXINE SODIUM 150 MCG TABLET PO SCH (06:05)
[2018-03-24 07:35] LABS: Albumin Level 2.8 gm/dl (3.4-5.0); BUN Creatinine Ratio 28.7 (10-20); Calcium 7.9 mg/dl (8.5-10.1); Est GFR (African American) 28.7; Est GFR (Non-African American) 24.8
[2018-03-24 07:36] LABS: Phosphorus 2.8 mg/dl (2.5-4.9)
--- NOTE | 2018-03-24 08:52 | Nephrology Progress Note ---
Date of Service March 24, 2018 Assessment & Plan (1) Hyponatremia: -- Improved, but Na slightly dropped again to 134<--136 -- continue to hold Ethacrynic acid. --will continue on IV fluid for now --if renal function continues to worsen, suggest right heart catheterization for further evaluation of volume status -- Document I/O's strictly and daily metabolic profile Will follow (2) Acute kidney injury superimposed on CKD: 67 y o F with CHF with boith systolic and diastolic dysfunction m( EF was 25 % which improved on recent Echo, has grade 2 diastolic dysfunction). Admitted with 25 lbs weight gain, SOB and [id number]. WAs on Entresto but Dced during this admission due to hypotension and BLANCA. Has hypersensitivity to lasix. has been on Ethacrynic acid. Iogzwa2dt cr 1.1-1.3. Developed BLANCA which resolved and cr dropped to 1.3. Had excellent diuresis and wt dropped to 98 kg form 112 kg. Diuretics was stopped as she was gettign volume depleted and renal function started to worsen. Hyponatremia resolved. However, last 2 days renal function continued to worsen despite holding diuretisc and being on IV fluid. Remain euvolemic to slightly voluem depleted -- renal function continues to worsen despite being in positive balance and off of diuretics, on IV fluid. --patient still clinically seems volume depleted, denies any shortness of breath. --Continue on IV fluid (3) Chronic combined systolic (congestive) and diastolic (congestive) heart failure: -- TTE demonstrated improved LV systolic function, Entresto has been stopped -- Potassium improving and the addition of a K-sparing diuretic may be considered in the future as needed Subjective Claudia was seen and examined in her room this morning. No acute events overnight. Claudia feels well this morning. Lower extremity edema resolved. Renal function continues to worsen off of diuretics for 2 days and getting IV fluid since yesterday, maintaining net positive more than 1 liter. BP stable. Diarrhea resolved. Physical Exam 2 Vital Signs (Past 24 Hours): Last Vital Signs Temp 37 C 03/24/18 07:21 Pulse 90 03/24/18 07:21 Resp 18 03/24/18 07:21 BP 103/68 03/24/18 07:21 Pulse Ox 94 03/24/18 07:21 Constitutional: WD/WN, vitals as above Respiratory: Auscultation: + rales (Bilaterally at bases, no wheezes) Cardiovascular: RRR, no murmur, no edema Vessels: + JVD Neurologic: moves all extremities and awake Psychiatric: A+Ox3, euthymic affect
--- NOTE | 2018-03-24 09:22 | Cardiology Progress Note ---
Date of Service March 24, 2018 Assessment & Plan (1) Chronic combined systolic (congestive) and diastolic (congestive) heart failure: Volume status difficult to determine. Appears euvolemic, borderline volume depleted clinically. Ethacrynic acid currently on hold. Continue IV fluids. Renal function continues to decline despite positive fluid balance, nephrology on board. (2) CAD (coronary artery disease): Post CABG patient with no angina. Continue anti-platelet therapy if no contraindications. Continue beta-angela. She is intolerant to statin therapy. (3) Ischemic cardiomyopathy: History of ischemic cardiomyopathy with echo this admission showing normal left ventricular systolic function. Can continue Carvedilol 6.25mg BID. Entresto has been discontinued as it was started earlier this hospitalization but her LV systolic function is now normal. She was also hypotensive while on Entresto, which could have contributed to her abnormal renal function. Since her GFR remains above 30 ml/min, could reconsider Entresto as outpatient if recurrent CHF and reduced LVEF (4) Hyponatremia: 133 today, as per Nephrology. (5) Hypotension: Stable. (6) Gram-positive bacteremia: Continue IV Daptomycin. Would hold off on right heart cath in the setting of acute bacteremia. (7) Complication of intravenous catheter site: Continue close monitoring. Would expect improvement within 48 hours of IV antibiotics. Subjective The patient had an uneventful night. She denies dyspnea rest and feelings her breathing is currently at baseline. Her lower extremity edema continues to improve. She mentions occasional cough but remains unchanged. She continues to complain of right forearm/wrist pain (at the IV site) radiating into the thumb. Started on IV fluids yesterday. Renal function continues to decline despite positive fluid balance (+1281 ml). Blood cultures positive x 2 for S. Aureus, MRSA screen positive. IV antibiotics switched to Daptomycin. ID consulted. Doppler US of the RUE shows superficial thrombus. No chest pain, palpitations, lightheadedness or other cardiopulmonary complaints. Physical Exam 2 Vital Signs (Past 24 Hours): Last Vital Signs Temp 37 C 03/24/18 07:21 Pulse 90 03/24/18 07:21 Resp 18 03/24/18 07:21 BP 103/68 03/24/18 07:21 Pulse Ox 94 03/24/18 07:21 Physical Exam: Weight: 101 kgs (up 4 kgs since 03/22) Gen.: No distress. Alert and oriented. HEENT: Normocephalic, atraumatic. Neck: Supple, no JVD. Cardiac: Regular rhythm. Normal S1-S2. 1/6 apical holosystolic murmur. No rubs or gallops. Lungs: Rare basilar crackles and dullness at the bases, otherwise clear. Abdomen: Soft, nontender, nondistended, with normoactive bowel sounds. Extremities: Trace bilateral lower extremity edema. Good capillary refill. Moderate edema and erythema noted at the distal right forearm consistent with cellulitis. Neuro: Alert and interactive, grossly nonfocal. _ (1) CAD (coronary artery disease) Associated angina: without angina Coronary Disease-Associated Artery/Lesion type: [place] artery [place] vs. transplanted heart: [place] heart Qualified Code (s): I25.10 - Atherosclerotic heart disease of [place] coronary artery without angina pectoris (2) Hypotension Hypotension type: unspecified hypotension type Trimester: Qualified Code(s) : I95.9 - Hypotension, unspecified
[2018-03-24] MEDS: INSULIN ASPART 100 UNITS/ML 3 ML PEN SC SCH ×4 (09:27→20:57)
[2018-03-24] MEDS: ASPIRIN 81 MG ECTAB PO SCH (09:29)
[2018-03-24] MEDS: CARVEDILOL 6.25 MG TAB PO SCH ×2 (09:29→20:55)
[2018-03-24] MEDS: OXYBUTYNIN CHLORIDE 5 MG TAB PO SCH ×2 (09:29→20:54)
[2018-03-24] MEDS: INSULIN GLARGINE SOLOSTAR 100 UNITS/ML 3 ML PEN SC SCH ×2 (09:30→20:57)
[2018-03-24] MEDS: VENLAFAXINE HCL XR 150 MG CAPXR PO SCH (09:35)
[2018-03-24] MEDS: CEROVITE ADV FORMULA TAB PO SCH (09:35)
[2018-03-24] MEDS: CLOPIDOGREL BISULFATE 75 MG TAB PO SCH (09:35)
[2018-03-24] MEDS: MAGNESIUM OXIDE 400 MG TAB PO SCH ×2 (09:36→20:55)
[2018-03-24] MEDS: PREGABALIN 150 MG CAP PO SCH ×2 (09:43→20:56)
--- NOTE | 2018-03-24 10:03 | XRay Report ---
XR chest 1V portable CLINICAL HISTORY: Shortness of breath. Volume overload. COMPARISON STUDY: 03/12/2018 FINDINGS: There are postsurgical changes of midline sternotomy. The heart is enlarged. There is a lef t subclavian pacer/defibrillator present. There is no current evidence of overt failure. There are no pleural effusions. There is no focal pulmonary consolidation.[ IMPRESSION: Cardiomegaly. No acute findings. Electronically signed by: Enrique Kumar M.D. 03/24/2018 10:02 AM
--- NOTE | 2018-03-24 10:24 | Infectious Disease Consult ---
Date of Consultation March 24, 2018 Assessment & Plan (1) Staphylococcus aureus septicemia: continue dapto, follow sensitivities. repeat cultures. likely due to prevous line. now with clot. will treat as IE - will need prolonged IV abx. echo negative on 03/22 - but with pacemaker/AICD would prefer longer course of IV abx. (2) Thrombophlebitis arm: History of Present Illness Attending Physician: Laquita Anand MD pt admitted on 03/11 with increased sob. was recently hospitalized and treated for foot infection with plans to follow with ortho. found to have pleural effusion, had 1.3L fluid removed, culture negative, intial blood cultures negative. afebrile thoughout admission. Prolonged hospital stay due to underlying CHF, CKD, fluid and electrolye imbalance. On 03/22 developed fever - 38.5, blood cultures done - 2/2 sets growing S. aureus. no repeat cultures done. started on dapto, tolerating well. tmax overnight 37.8. She had perph IV right wrist, now with increased erythema, warmth, tenderness, swelling, prevous streaking as well. now better. had doppler done on 03/22 - occlusive clot found. echo done on 03/22 - negative. no leukocytosis noted but last cbc on . creat 2.0 today. UA negative. Most recent foot imaging on 03/12- no osteo. ortho following, plan for outpt management of foot. ID consulted due to + blood cultures. She denies cp, sob, cough, no n/v/d/abd pain. no pain in foot. only complaint is of pain in right wrist, no drainage. line out. feeling better today. Allergies Allergy/AdvReac Type Severity Reaction Status Date / Time clindamycin Allergy Severe RASH, Verified 03/11/18 18:13 DELUSIONAL, CONVULSIONS Egg Derived Allergy Severe ANAPHYLAXIS Verified 03/11/18 18:13 furosemide Allergy Severe ANAPHYLAXIS Verified 03/11/18 18:13 rosuvastatin Allergy Severe LEG Unverified 03/11/18 18:13 WEAKNESS simvastatin Allergy Severe LEG Unverified 03/11/18 18:13 WEAKNESS Bactrim Allergy Intermediate RASH Verified 04/13/17 16:00 sulfamethoxazole Allergy Intermediate RASH Verified 03/11/18 18:13 trimethoprim Allergy Intermediate RASH Verified 03/11/18 18:13 amoxicillin Allergy Unknown . Verified 03/11/18 18:13 atorvastatin Allergy Unknown acute Verified 03/11/18 18:13 renal failure clavulanic acid Allergy Unknown . Verified 03/11/18 18:13 egg Allergy Unknown _ Verified 03/11/18 18:13 latex Allergy Unknown RASH Verified 03/11/18 18:13 Penicillins Allergy Unknown unknown Verified 03/11/18 18:13 triamcinolone Allergy Unknown RASH Verified 03/11/18 18:13 nickel Allergy Redness of Verified 03/11/18 18:13 Skin capsaicin AdvReac Severe SKIN Verified 03/11/18 18:13 SLOTHED FROM HEEL diclofenac AdvReac Severe SKIN Verified 03/11/18 18:13 SLOTHED FROM HEEL Diclopak AdvReac Severe SKIN Verified 04/13/17 16:00 SLOTHED FROM HEEL isopropyl alcohol AdvReac Severe SKIN Verified 03/11/18 18:13 SLOTHED FROM HEEL propylene glycol AdvReac Severe SKIN Verified 03/11/18 18:13 SLOTHED FROM HEEL acetaminophen AdvReac Mild VOMITING Verified 03/11/18 18:13 Home Medications Home Medications Medication Instructions Recorded Confirmed Type albuterol sulfate 2 puff INHALATION QID PRN 02/18/18 03/11/18 History aspirin [Aspir-81] 81 mg PO DAILY 02/18/18 03/11/18 History carvedilol 6.25 mg PO BID 02/18/18 03/11/18 History clopidogrel 75 mg PO DAILY 02/18/18 03/11/18 History dulaglutide 0.75 mg SUBCUT WK 02/18/18 03/11/18 History econazole 1 applic TOPICAL UD PRN 02/18/18 03/11/18 History ergocalciferol (vitamin D2) 50,000 unit PO WK 02/18/18 03/11/18 History fluticasone-vilanterol 1 puff INHALATION DAILY 02/18/18 03/11/18 History levothyroxine 150 mcg PO DAILY 02/18/18 03/11/18 History magnesium oxide 400 mg PO BID 02/18/18 03/11/18 History metformin 1,000 mg PO DAILY 02/18/18 03/11/18 History mirtazapine 30 mg PO HS 02/18/18 03/11/18 History tozrarszbxgo-erqcaeuc-[id number] 1 tab PO DAILY 02/18/18 03/11/18 History [Multivitamin 50 Plus] pramipexole 0.75 mg PO HS 02/18/18 03/11/18 History pregabalin [Lyrica] 150 mg PO QAM 02/18/18 03/11/18 History pregabalin [Lyrica] 300 mg PO HS 02/18/18 03/11/18 History saxagliptin 5 mg PO DAILY 02/18/18 03/11/18 History venlafaxine 150 mg PO DAILY 02/18/18 03/11/18 History oxybutynin chloride 5 mg tablet 5 mg PO BID tab 03/01/18 03/11/18 History tramadol 50 mg tablet 50 mg PO Q8H PRN tab 03/01/18 03/11/18 History Patient History Medical History 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 Physical Exam 2 Vital Signs (Past 24 Hours): Last Vital Signs Temp 37 C 03/24/18 07:21 Pulse 90 03/24/18 07:21 Resp 18 03/24/18 07:21 BP 103/68 03/24/18 07:21 Pulse Ox 94 03/24/18 07:21 Constitutional: WD/WN, vitals as above Eyes: PERRL, conjunctivae normal, anicteric sclerae ENMT: external ear and nose normal, oropharynx normal Neck: normal visual inspection Respiratory: normal respiratory effort, lungs clear to auscultation Cardiovascular: RRR, no murmur, no edema Gastrointestinal (Abdomen): normal bowel sounds, soft, nontender, no hepatosplenomegaly Musculoskeletal: no cyanosis or clubbing, extremities motor strength 5/5 Skin: no rashes, warm and dry right wrist, tender to light palpation, + warmth, erythema, no open wounds, + edema. Psychiatric: A+Ox3, euthymic affect Results & Data Laboratory Results Microbiology 03/24/18 08:50 Sputum, Expectorated Gram Stain - Final 03/22/18 19:45 Blood Blood Culture - Preliminary Staphylococcus aureus 03/22/18 19:37 Blood Blood Culture - Preliminary Staphylococcus aureus 03/12/18 12:00 Pleural Fluid Gram Stain - Final 03/12/18 12:00 Pleural Fluid Aerobic and Anaerobic Culture - Final No growth 03/11/18 19:06 Blood Blood Culture - Final No growth 03/11/18 18:56 Blood Blood Culture - Final No growth
--- NOTE | 2018-03-24 15:43 | Hospitalist Progress Note ---
Date of Service March 24, 2018 Assessment & Plan (1) Gram-positive bacteremia: possible source Diabetic foot ulcer/infected left fourth toe blood culture X2 gram positive bacteremia /staph aureus MRSA screen positive Abx changed to daptomycin ID eval requested -appreciate input Continue antibiotic, mainly need long-term IV antibiotic treatment Recent echo, showed no evidence of endocarditis Repeat blood cultures ordered report pending If repeat blood culture positive then will consider for repeat echocardiogram (2) Toe ulcer due to DM: Acute on chronic left foot diabetic toe ulcer Noted to have drainage of pus Possible leading to infection/gram-positive bacteremia, recurrent fever Podiatry evaluation requested CT of left foot shows no evidence of osteomyelitis (3) Complication of intravenous catheter site: developed redness , pain and swelling at rt hand IV site possible infiltration USG of rt arm shows superficial venous thrombosis , cont symtomaic management keep limb elevated pain control (4) Pleural effusion: CT chest showed small left and moderate right pleural effusions. CT abd/chest showed Fluid overload manifested by bilateral pleural effusions with moderate body wall edema and trace abdominal pelvic ascites. S/P thoracentesis where 1.3L pleural fluid removed Pulmonology on board Clinically improved significantly Stable (5) Acute systolic CHF (congestive heart failure), NYHA class 3: stable no complain of orthpea History of ischemic cardiomyopathy with combined systolic and diastolic heart failure, Presented with decompensated CHF with weight gain, dyspnea on exertion, orthopnea Lasix/sulfa allergies S/P thoracentesis done Cardiology on board Starting on Zaroxolyn and Entresto Continue to monitor volume status Clinically improved Creatinine stable at 1.4 ECHO showed no wall motion abnormality, EF 55-60 % Entresto was discontinued since ECHO showed preserve EF Continue carvedilol BID Continue fluid restriction 1.5 L Negative balance of 4L ( Good output) Continue monitor (6) Hypotension: BP improved after holding diuretics cont to monitor on Coreg (7) Hyponatremia: improved Mostly related to diuretic (Zaroxolyn) and Entresto Ethacrynate on hold appreciate input from Nephrology avoid HCTZ monitor vol status fluid restriction 1.5 L daily (8) BLANCA (acute kidney injury): cr continued to worsen ordered for IVF cont to hold diuretics appreciate input from Nephrology (9) Stage III chronic kidney disease: Mostly related to diuretic and Entresto Entresto d/c renal function at baseline appreciate Nephro input (10) DM type 2 (diabetes mellitus, type 2): Insulin sliding scale Monitor BS (11) CAD (coronary artery disease): no complain of angina no Topete Elevated troponin due to CHF decompensated with biventricular failure EKG showed no ischemic changes Troponin tending down On plavix, aspirin and carvedilol Stable (12) Ischemic cardiomyopathy: Severe ischemic cardiomyopathy with biventricular failure Presented with decompensated CHF Volume status improved after diuresis/thoracentesis (13) GERD (gastroesophageal reflux disease): Continue PPI (14) DVT prophylaxis: Subcu heparin (15) Discharge planning issues: pt needs continued hospital stay for infection /gram positive bactermia Subjective Patient remains afebrile, Found sitting up in the chair, in good spirit, Denies of any discomfort, no shortness of breath, Updated by wound care nurse, patient left fourth toe: Noted to have purulent drainage Has chronic diabetic ulcer/wound on left fourth toe, Did not had any swelling on drainage a week ago Possible source of infection, causing febrile recurrent reaction, staph aureus bacteremia CT of left foot ordered, shows no evidence of osteomyelitis Orthopedics team updated regarding need for possible I&D patient follows with Who is not available over the weekend Recommend podiatry involved Dr. Winter from podiatry consulted Physical Exam 2 Vital Signs (Past 24 Hours): Last Vital Signs Temp 37 C 03/24/18 07:21 Pulse 90 03/24/18 07:21 Resp 18 03/24/18 07:21 BP 103/68 03/24/18 07:21 Pulse Ox 94 03/24/18 07:21 Constitutional: WD/WN, vitals as above Eyes: PERRL, conjunctivae normal, anicteric sclerae ENMT: external ear and nose normal, oropharynx normal Neck: trachea midline, no thyromegaly Respiratory: normal respiratory effort; no respiratory distress Auscultation: + diminished lung sounds; no crackles, no rales and no wheezes Cardiovascular: Rate/Rhythm: regular rate and regular rhythm Gastrointestinal (Abdomen): normal bowel sounds, soft, nontender, no hepatosplenomegaly Musculoskeletal: Extremities: + limited ROM of upper extremity, + hand abnormality (swelling of rt hand extening form wrist to mid arm , red , + tenderness -site of prior IV site ) and + foot abnormality (Open wound on left fourth toe, with surrounding erythema, positive drainage with pus) Left Skin: no rashes, warm and dry Neurologic: PERRL, EOMI, accommodation nl, no face palsy, no dysarthria Psychiatric: A+Ox3, euthymic affect _ (1) DM type 2 (diabetes mellitus, type 2) Chronic kidney disease stage: stage 3 (moderate) Diabetes mellitus complication detail: with chronic kidney disease Diabetes mellitus complication status: with kidney complications Diabetes mellitus terminal makeup operator insulin use: unspecified terminal makeup operator insulin use status Diabetes mellitus macular edema: Diabetic retinopathy severity: Laterality: Proliferative retinopathy type: Qualified Code(s): E11.22 - Type 2 diabetes mellitus with diabetic chronic kidney disease; N18.3 - Chronic kidney disease, stage 3 ( moderate) (2) CAD (coronary artery disease) Associated angina: without angina Coronary Disease-Associated Artery/Lesion type: [place] artery [place] vs. transplanted heart: [place] heart Qualified Code (s): I25.10 - Atherosclerotic heart disease of [place] coronary artery without angina pectoris (3) Toe ulcer due to DM Diabetes mellitus type: type 2 Laterality: left Non-pressure ulcer stage: limited to breakdown of skin Qualified Code(s): E11.621 - Type 2 diabetes mellitus with foot ulcer; L97.521 - Non-pressure chronic ulcer of other part of left foot limited to breakdown of skin (4) GERD (gastroesophageal reflux disease) Esophagitis presence: esophagitis presence not specified Qualified Code(s): K21.9 - Gastro-esophageal reflux disease without esophagitis (5) Hypotension Hypotension type: unspecified hypotension type Trimester: Qualified Code(s) : I95.9 - Hypotension, unspecified
--- NOTE | 2018-03-24 16:41 | CT Scan Report ---
CT foot LT wo con HISTORY: 67 years-old Female diabetic left foot / left 4 th toe infection, chronic pain and swellin g of the left fourth toe COMPARISON: Left foot radiograph 03/12/2018, CT left lower extremity 08/26/2017 TECHNIQUE: Multiple axial CT images of the left foot were obtained without the use of IV contrast. A dose lowering technique was used consistent with the principals of ROSHAN. 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 Mild degenerative changes about the meta tarsophalangeal joints and mild to moderate degenerative changes about the remaining interphalangeal joints. Prior amputation of the fifth digit at the level of the metatarsophalangeal joint. There is n o acute fracture or dislocation identified. Corticated bone fragments adjacent to the medial malleolu s suggest remote avulsion fracture fragments. Mild degenerative changes about the tibiotalar joint. N o osteochondral defect identified. Large spurs about the calcaneus. Remote fracture deformity of the proximal diaphyseal fifth metatarsal with cortical thickening, unchanged. No definite erosive changes identified to suggest acute osteomyelitis. No acute fracture or dislocation. Thickening of the distal Achilles tendon. Remaining flexor and extensor tendons appear unremarkable. Mild subcutaneous edema about the foot and ankle. Moderate atrophy of the intrinsic musculature. No d rainable fluid collection. Peripheral arterial calcifications are noted. IMPRESSION: 1. No acute fracture or dislocation. 2. No definite erosive changes to suggest acute osteomyelitis. 3. Unchanged healed remote fracture about the mid diaphyseal fifth metatarsal. 4. Prior amputation of the fifth digit at the level of the metatarsophalangeal joint. 5. Degenerative changes as above include unchanged advanced osteoarthritis about the first interphala ngeal joint. The above report was generated using voice recognition software. It may contain grammatical, syntax o r spelling errors. Dictated: 03/24/2018 3:53 PM Transcribed: 03/24/2018 4:41 PM [place] [id number] JUAN CARLOS_Nixon Electronically signed by: Wander Paula M.D. 03/24/2018 5:52 PM
--- NOTE | 2018-03-24 17:01 | Cardiology Progress Note ---
Date of Service March 24, 2018 Assessment & Plan (1) Chronic combined systolic (congestive) and diastolic (congestive) heart failure: She does not appear to be hypervolemic. Her BUN and creatinine became elevated after significant diuresis and therefore she may have become intravascularly hypovolemic. She has since received IV fluids. Monitor volume status closely. Ethacrynic acid currently on hold, but she may require further diuretics in the future. Recommend that she be followed clinically. (2) CAD (coronary artery disease): She has had CABG in the past. No angina. Continue anti-platelet therapy if no contraindications. Continue beta-angela. She is intolerant to statin therapy. (3) Ischemic cardiomyopathy: History of ischemic cardiomyopathy with echo this admission showing normal left ventricular systolic function. Can continue Carvedilol 6.25mg BID. Entresto was initiated during this hospitalization in later discontinued once normal LV systolic function was documented. She was also hypotensive while on Entresto. (4) Hyponatremia: Sodium concentration has improved with fluid restriction. Hyponatremia worsen while on thiazide diuretic. (5) Gram-positive bacteremia: Treatment as per Infectious Disease. Disposition: I will be away from the hospital for the next several days. Please call on-call trauma registrar for any questions or concerns. Dr. Schafer will be made aware of her current issues. Subjective She denies shortness of breath, chest pain, palpitations, syncope, near-syncope , or worsening edema. She states that she feels better today than yesterday. Review of systems: As above. Physical Exam 2 Vital Signs (Past 24 Hours): Last Vital Signs Temp 36.8 C 03/24/18 16:40 Pulse 68 03/24/18 16:40 Resp 20 03/24/18 16:40 BP 90/55 L 03/24/18 16:40 Pulse Ox 99 03/24/18 16:40 Intake & Output 03/22/18 03/23/18 03/24/18 03/25/18 06:59 06:59 06:59 06:59 Intake Total 850 / 850 1340 / 1340 2681.000 / 2681.00 0 2007 Output Total 650 / 650 500 / 500 1400 / 1400 300 / 300 Balance 200 / 200 840 / 840 1281.000 / 1281.00 0 1708 / 1708 Weight 97.9 kg 101.9 kg Physical Exam: Gen.: No acute distress. Alert and oriented. HEENT: Anicteric sclera. Neck: No JVD. Cardiac: Regular. Normal S1-S2. No audible murmurs, rubs, or gallops. Pulmonary: Decreased breath sounds at the bases with faint rales bilateral bases. Abdomen: Soft, nontender, nondistended, with normoactive bowel sounds. No bruits noted. Extremities: Trace bilateral lower extremity edema. No cyanosis. Psychiatric: Affect appears appropriate. Results & Data Laboratory Results Laboratory Results - last 24 hr 03/23/18 03/24/18 03/24/18 20:05 06:50 08:02 Sodium 133 L Potassium 4.0 Chloride 94 L Carbon Dioxide 32 Anion Gap 7.0 BUN 59 H Creatinine 2.05 H Est Cr Clr Drug Dosing 33.0 Est GFR ( Amer) 28.7 Est GFR (Non-Af Amer) 24.8 BUN/Creatinine Ratio 28.7 H Glucose 179 H POC Glucose 240 H 184 H Calcium 7.9 L Phosphorus 2.8 Albumin 2.8 L 03/24/18 03/24/18 11:36 16:39 Sodium Potassium Chloride Carbon Dioxide Anion Gap BUN Creatinine Est Cr Clr Drug Dosing Est GFR ( Amer) Est GFR (Non-Af Amer) BUN/Creatinine Ratio Glucose POC Glucose 252 H 199 H Calcium Phosphorus Albumin Medications Administered Current Inpatient Medications Albuterol (Ventolin Hfa) 2 puffs INH QID PRN PRN Reason: Shortness Of Breath Or Wheezing Stop: 04/10/18 22:37 Aspirin (Ecotrin) 81 mg PO DAILY MARITZA Stop: 04/11/18 08:59 Last Admin: 03/24/18 09:29 Dose: 81 mg Carvedilol (Coreg) 6.25 mg PO BID MARITZA Stop: 04/11/18 08:59 Last Admin: 03/24/18 09:29 Dose: 6.25 mg Clopidogrel Bisulfate (Plavix) 75 mg PO DAILY MARITZA Stop: 04/11/18 08:59 Last Admin: 03/24/18 09:35 Dose: 75 mg Dextrose (Dextrose 50%) 25 - 50 ml IV UD PRN; Protocol PRN Reason: Hypoglycemia Protocol Stop: 04/10/18 22:56 Econazole Nitrate (Spectazole 1%) 1 appln TOP DAILY PRN PRN Reason: Rash Stop: 04/21/18 16:40 Ergocalciferol (Vitamin D2) 50,000 units PO Q7D [facility] Stop: 04/27/18 08:59 Ethacrynic Acid (Edecrin) 25 mg PO BID [facility] Stop: 04/20/18 20:59 Last Admin: 03/22/18 09:04 Dose: Not Given Glucagon (Glucagen) 1 mg SQ UD PRN; Protocol PRN Reason: Hypoglycemia Protocol Stop: 04/10/18 22:56 Glucose (Glucose 40%) 15 - 30 gm PO UD PRN; Protocol PRN Reason: Hypoglycemia Protocol Stop: 04/10/18 22:56 Glucose (Dex4 Glucose) 4 - 8 tabs PO UD PRN; Protocol PRN Reason: Hypoglycemia Protocol Stop: 04/10/18 22:56 Heparin Sodium (Porcine) (Heparin Sodium (Porcine)) 5,000 units SQ Q8 [facility] Stop: 04/10/18 22:37 Last Admin: 03/24/18 16:11 Dose: 5,000 units Sodium Chloride (Nss 1000ml) 1,000 mls @ 80 mls/hr IV .[id number] [facility] Stop: 04/22/18 10:29 Last Admin: 03/24/18 13:12 Dose: 80 mls/hr Daptomycin 450 mg/ Syringe 9 mls @ 4.5 mls/min IV Q24H [facility]; Protocol Stop: 04/06/18 21:59 Last Admin: 03/23/18 21:38 Dose: 4.5 mls/min Insulin Aspart (Novolog Flexpen) 0 units SC ACHS [facility] Stop: 04/11/18 07:29 Last Admin: 03/24/18 12:47 Dose: 12 units Insulin Glargine (Lantus Solostar Pen) 8 units SC BID [facility] Stop: 04/23/18 20:59 Ipratropium [place] (Atrovent 0.02% 0.5mg/2.5ml) 0.5 mg INH Q4H PRN PRN Reason: SOB/WHEEZE Stop: 04/11/18 01:44 Last Admin: 03/15/18 00:11 Dose: 0.5 mg Levalbuterol HCl (Xopenex 1.25mg/0.5ml Neb) 1.25 mg INH Q4H PRN PRN Reason: SOB/WHEEZE Stop: 04/11/18 01:44 Last Admin: 03/15/18 00:11 Dose: 1.25 mg Levothyroxine Sodium (Synthroid) 150 mcg PO DAILYBB [facility] Stop: 04/11/18 06:29 Last Admin: 03/24/18 06:05 Dose: 150 mcg Magnesium Oxide (Mag-Ox) 400 mg PO BID [facility] Stop: 04/11/18 08:59 Last Admin: 03/24/18 09:36 Dose: 400 mg Mirtazapine (Remeron) 30 mg PO HS [facility] Stop: 04/11/18 20:59 Last Admin: 03/23/18 20:48 Dose: 30 mg Miscellaneous (Carbohydrates For Hypoglycemia) 15 - 30 gm PO UD PRN PRN Reason: Hypoglycemia Treatment Stop: 04/10/18 22:56 Miscellaneous (Order Awaiting Action) 1 ea N/A QS [facility] Stop: 04/22/18 00:00 Last Admin: 03/24/18 16:43 Dose: Not Given Miscellaneous (Order Awaiting Action) 1 ea N/A QS [facility] Stop: 04/22/18 00:00 Last Admin: 03/24/18 16:44 Dose: Not Given Miscellaneous Information (Consult) 1 ea N/A UD PRN PRN Reason: Consult Stop: 04/22/18 14:49 Multivitamins/Minerals (Multivitamin W/ Minerals) 1 tab PO DAILY [facility] Stop: 04/11/18 08:59 Last Admin: 03/24/18 09:35 Dose: 1 tab Nitroglycerin (Nitrostat) 0.4 mg SL UD PRN PRN Reason: Chest Pain Stop: 04/10/18 22:37 Ondansetron HCl (Zofran) 4 mg IV Q6H PRN PRN Reason: Nausea Stop: 04/10/18 22:37 Oxybutynin Chloride (Ditropan) 5 mg PO BID [facility] Stop: 04/11/18 08:59 Last Admin: 03/24/18 09:29 Dose: 5 mg Polyethylene Glycol (Miralax Powder Packet) 17 gm PO DAILY PRN PRN Reason: Constipation Stop: 04/10/18 22:37 Pramipexole Dihydrochloride (Mirapex) 0.75 mg PO [facility] Stop: 04/11/18 20:59 Last Admin: 03/23/18 20:43 Dose: 0.75 mg Pregabalin (Lyrica) 300 mg PO HS MARITZA Stop: 04/10/18 22:59 Last Admin: 03/23/18 20:40 Dose: 300 mg Pregabalin (Lyrica) 150 mg PO QAM MARITZA Stop: 04/11/18 08:59 Last Admin: 03/24/18 09:43 Dose: 150 mg Tramadol HCl (Ultram) 50 mg PO Q8H PRN PRN Reason: pain Stop: 04/10/18 22:37 Last Admin: 03/22/18 09:18 Dose: 50 mg Venlafaxine HCl (Effexor Extended Release) 150 mg PO DAILY [facility] Stop: 04/11/18 08:59 Last Admin: 03/24/18 09:35 Dose: 150 mg _ (1) CAD (coronary artery disease) Coronary Disease-Associated Artery/Lesion type: [place] artery [place] vs. transplanted heart: [place] heart Associated angina: without angina Qualified Code(s): I25.10 - Atherosclerotic heart disease of [place] coronary artery without angina pectoris
[2018-03-24] MEDS: MIRTAZAPINE TAB 15 MG TAB PO SCH (20:53)
[2018-03-24] MEDS: DAPTOmycin 450 MG in SYRINGE 0 ML IV SCH (20:53)
[2018-03-24] MEDS: PRAMIPEXOLE DIHYDROCHLO 0.25 MG TAB PO SCH (20:55)
[2018-03-25] MEDS: SODIUM CHLORIDE 0.9% 1000ML 1,000 ML IV SCH (00:30)
[2018-03-25] MEDS: LEVOTHYROXINE SODIUM 150 MCG TABLET PO SCH (05:51)
[2018-03-25] MEDS: HEPARIN SOD 5,000 UNIT/0.5 ML VIAL SQ SCH ×2 (05:51→20:47)
[2018-03-25 07:51] LABS: Albumin Level 2.6 gm/dl (3.4-5.0); BUN Creatinine Ratio 37.4 (10-20); Calcium 8.2 mg/dl (8.5-10.1); Creatinine Clr Calc Pharmacy 38.6 ml/min; Est GFR (African American) 34.8; Potassium 3.7 mmol/L (3.5-5.1)
[2018-03-25 07:52] LABS: Phosphorus 2.6 mg/dl (2.5-4.9)
[2018-03-25] MEDS: OXYBUTYNIN CHLORIDE 5 MG TAB PO SCH ×2 (08:58→20:27)
[2018-03-25] MEDS: PREGABALIN 150 MG CAP PO SCH ×2 (08:59→20:26)
[2018-03-25] MEDS: CEROVITE ADV FORMULA TAB PO SCH (08:59)
[2018-03-25] MEDS: VENLAFAXINE HCL XR 150 MG CAPXR PO SCH (08:59)
[2018-03-25] MEDS: CARVEDILOL 6.25 MG TAB PO SCH ×2 (08:59→20:27)
[2018-03-25] MEDS: ASPIRIN 81 MG ECTAB PO SCH (08:59)
[2018-03-25] MEDS: CLOPIDOGREL BISULFATE 75 MG TAB PO SCH (08:59)
[2018-03-25] MEDS: MAGNESIUM OXIDE 400 MG TAB PO SCH ×2 (08:59→20:29)
[2018-03-25] MEDS: INSULIN ASPART 100 UNITS/ML 3 ML PEN SC SCH ×4 (09:04→20:35)
[2018-03-25] MEDS: INSULIN GLARGINE SOLOSTAR 100 UNITS/ML 3 ML PEN SC SCH ×2 (09:05→20:36)
--- NOTE | 2018-03-25 09:45 | Podiatry Consultation ---
Date of Consultation March 25, 2018 Assessment & Plan (1) Acquired claw toe of left foot: Cellulitic left second digit of the foot with absent pedal pulses and wound present. There are no significant signs of a localized infection aside from the erythema. No purulence is noted and no cortical involvement is noted on the CT exam. Sharp excisional debridement to the level of subcutaneous tissue was performed at the bedside today. Excellent perfusion bleeding was noted to the digit. No purulence was noted after debridement of hyperkeratotic tissue. Wound depth does not probe to the level of bone. I do not believe that any surgical intervention is warranted at this time. She would benefit from having a workup for her peripheral arterial disease at this time. I will order a duplex arterial ultrasound. She may require a vascular surgery versus interventional cardiology consultation. Believe that continuing IV antibiotics is the best course of treatment for this erythematous toe at this time. Cultures were not warranted as they will likely to superficial contaminants and no purulence was noted with healthy wound base and minimal fibrotic tissue. We can apply an alcohol wet-to-dry dressing to the digit at this time. This can be changed daily. I communicated this with the nursing staff. I will continue to follow her through the weekend. Thank you for the consultation allowing me to take part in this patient's care. Please feel free to contact me with any questions directly at [phone] History of Present Illness Attending Physician: Laquita Anand MD This is a 67-year-old female with left second digit cellulitis thought to be the source of recurrent fever and possible septicemia. She had a recent CT scan which revealed no cortical erosions or osseous involvement of the second digit. No abscesses were noted on CT scan. She seen today bedside and denies any nausea vomiting fevers or chills. She does admit to intermittent leg cramping. Denies pain to the left second digit at this time. Admits that wound has been there for for a number of months. She is to follow with an outside aviation project engineer however that aviation project engineer is no longer in business. She had a recent left fifth digit amputation by Dr. Donald as an outpatient. I was called for possible incision and drainage of the digit. Allergies Allergy/AdvReac Type Severity Reaction Status Date / Time clindamycin Allergy Severe RASH, Verified 03/11/18 18:13 DELUSIONAL, CONVULSIONS Egg Derived Allergy Severe ANAPHYLAXIS Verified 03/11/18 18:13 furosemide Allergy Severe ANAPHYLAXIS Verified 03/11/18 18:13 rosuvastatin Allergy Severe LEG Unverified 03/11/18 18:13 WEAKNESS simvastatin Allergy Severe LEG Unverified 03/11/18 18:13 WEAKNESS Bactrim Allergy Intermediate RASH Verified 04/13/17 16:00 sulfamethoxazole Allergy Intermediate RASH Verified 03/11/18 18:13 trimethoprim Allergy Intermediate RASH Verified 03/11/18 18:13 amoxicillin Allergy Unknown . Verified 03/11/18 18:13 atorvastatin Allergy Unknown acute Verified 03/11/18 18:13 renal failure clavulanic acid Allergy Unknown . Verified 03/11/18 18:13 egg Allergy Unknown _ Verified 03/11/18 18:13 latex Allergy Unknown RASH Verified 03/11/18 18:13 Penicillins Allergy Unknown unknown Verified 03/11/18 18:13 triamcinolone Allergy Unknown RASH Verified 03/11/18 18:13 nickel Allergy Redness of Verified 03/11/18 18:13 Skin capsaicin AdvReac Severe SKIN Verified 03/11/18 18:13 SLOTHED FROM HEEL diclofenac AdvReac Severe SKIN Verified 03/11/18 18:13 SLOTHED FROM HEEL Diclopak AdvReac Severe SKIN Verified 04/13/17 16:00 SLOTHED FROM HEEL isopropyl alcohol AdvReac Severe SKIN Verified 03/11/18 18:13 SLOTHED FROM HEEL propylene glycol AdvReac Severe SKIN Verified 03/11/18 18:13 SLOTHED FROM HEEL acetaminophen AdvReac Mild VOMITING Verified 03/11/18 18:13 Home Medications Home Medications Medication Instructions Recorded Confirmed Type albuterol sulfate 2 puff INHALATION QID PRN 02/18/18 03/11/18 History aspirin [Aspir-81] 81 mg PO DAILY 02/18/18 03/11/18 History carvedilol 6.25 mg PO BID 02/18/18 03/11/18 History clopidogrel 75 mg PO DAILY 02/18/18 03/11/18 History dulaglutide 0.75 mg SUBCUT WK 02/18/18 03/11/18 History econazole 1 applic TOPICAL UD PRN 02/18/18 03/11/18 History ergocalciferol (vitamin D2) 50,000 unit PO WK 02/18/18 03/11/18 History fluticasone-vilanterol 1 puff INHALATION DAILY 02/18/18 03/11/18 History levothyroxine 150 mcg PO DAILY 02/18/18 03/11/18 History magnesium oxide 400 mg PO BID 02/18/18 03/11/18 History metformin 1,000 mg PO DAILY 02/18/18 03/11/18 History mirtazapine 30 mg PO HS 02/18/18 03/11/18 History sfemptlqusbn-bvkrcosf-rcxkso 1 tab PO DAILY 02/18/18 03/11/18 History [Multivitamin 50 Plus] pramipexole 0.75 mg PO HS 02/18/18 03/11/18 History pregabalin [Lyrica] 150 mg PO QAM 02/18/18 03/11/18 History pregabalin [Lyrica] 300 mg PO HS 02/18/18 03/11/18 History saxagliptin 5 mg PO DAILY 02/18/18 03/11/18 History venlafaxine 150 mg PO DAILY 02/18/18 03/11/18 History oxybutynin chloride 5 mg tablet 5 mg PO BID tab 03/01/18 03/11/18 History tramadol 50 mg tablet 50 mg PO Q8H PRN tab 03/01/18 03/11/18 History Patient History Medical History 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) Ischemic cardiomyopathy (Chronic) Hyperlipidemia (Chronic) GERD (gastroesophageal reflux disease) (Chronic) Systolic congestive heart failure Family History Father Heart attack Social History Smoking Status: Former smoker (QUIT 1994) Review of Systems A full 12 system ROS was conducted and noted to be negative other than the above HPI Physical Exam 2 Vital Signs (Past 24 Hours): Last Vital Signs Temp 36.7 C 03/25/18 07:24 Pulse 84 03/25/18 07:24 Resp 22 03/25/18 07:24 BP 97/68 L 03/25/18 07:24 Pulse Ox 97 03/25/18 07:24 Physical Exam: Patient is alert and oriented x3 vital signs are stable and she is in no acute distress She is absent pedal pulses in the bilateral lower extremity. Sensation is intact light touch. There is a distal clavi to the left second digit with heloma present. Previous purulence was noted to the digit however is not present on exam today. After debridement of the hyperkeratotic tissue present there is an underlying wound measuring approximately 0.3 cm x 0.1 cm. Depth is approximately 0.2 cm. It does not probe to the level of bone. There is surrounding cellulitis to the digit that is not proximally streaking onto the foot at this time. CT is negative for any cortical erosions or abscesses present. No calor is present no pain is present. No malodor is present
--- NOTE | 2018-03-25 11:45 | Nephrology Progress Note ---
Date of Service March 25, 2018 Assessment & Plan (1) Acute kidney injury superimposed on CKD: Mrs. Marsh has an ICM w/ LVEF ~ 25 % and is s/p AICD. She suffers from obesity, pulmonary HTN, COPD, KAVIN, AODM and PVD. Mrs. Marsh reports a h/o anaphylaxis to Furosemide and ELADIO inhibitors. She was admitted to [facility] 03/11/18 w/ dyspnea, tense LE swelling and a 7 kg weight gain. Evaluation revealed the presence of abdominal ascites and bilateral pleural effusions. Mrs. Marsh underwent R thoracentesis 03/11/18. She was managed w/ Zaroxolyn and Entresto. Her hospital course has been complicated by BLANCA and hyponatremia (baseline Cr1.1) -- Hold Entresto (ARB) -- Ethacrynic acid currently being held as patient is now clinically volume contracted -- Heplock IV and reassess volume status and kidney function in am (2) Hyponatremia: -- Improved off thiazide diuretic therapy -- Monitor PRP (3) Chronic combined systolic (congestive) and diastolic (congestive) heart failure: -- Recent echo documents normal LVEF -- Continue Carvedilol as per Cardiology -- Entresto stopped due to hypotension and BLANCA Subjective Mrs. Marsh was seen and examined in her hospital room this morning. Diuretics have been held for the last 3 days. Patient reports that her UO has dropped off however she denies dyspnea. She voices no new medical concerns. Respiratory: + dyspnea Cardiovascular: + edema; no chest pain Physical Exam 2 Vital Signs (Past 24 Hours): Last Vital Signs Temp 36.7 C 03/25/18 07:24 Pulse 84 03/25/18 07:24 Resp 22 03/25/18 07:24 BP 97/68 L 03/25/18 07:24 Pulse Ox 97 03/25/18 07:24 Eyes: PERRL, conjunctivae normal, anicteric sclerae Neck: trachea midline Respiratory: Auscultation: lungs clear to auscultation bilaterally Cardiovascular: Rate/Rhythm: regular rate and regular rhythm Extremities: no edema Gastrointestinal (Abdomen): Percussion/Palpation: abdomen soft; abdomen nontender (obese) Results & Data Laboratory Results Laboratory Tests 03/12/18 03/25/18 05:15 06:57 WBC 7.05 Hgb 11.3 L Hct 36.2 L Plt Count 196 Sodium 134 L Potassium 3.7 Chloride 97 L Carbon Dioxide 31 BUN 66 H Creatinine 1.75 H D Glucose 193 H
--- NOTE | 2018-03-25 15:06 | Ultrasound Report ---
US arterial duplex bilateral lower extremity CLINICAL HISTORY: decreased pedal pulse COMPARISON STUDY: Right lower extremity venous Doppler study 03/09/2013. FINDINGS: The patient was unable to tolerate the ankle brachial indices. Focal area of elevated piece s of loss within the proximal right anterior tibial artery of 210 cm/s consistent with an area of perico nosis. Monophasic waveforms seen within the bilateral dorsalis pedis arteries. The remaining bilatera l lower extremity arterial systems demonstrate normal triphasic to biphasic waveforms and velocities. No areas of arterial occlusion. Scattered calcified plaque throughout the lower extremity arterial s ystems. IMPRESSION: 1. No areas of arterial occlusion. 2. Focal area of hemodynamically significant stenosis within the proximal right anterior tibial arter y. No additional areas of stenosis within the bilateral lower extremity arterial system. 3. Monophasic waveforms within the dorsalis pedis arteries consistent with diffuse atherosclerotic di sease. Electronically signed by: Melquiades Jay M.D. 03/25/2018 3:05 PM
--- NOTE | 2018-03-25 17:46 | Hospitalist Progress Note ---
Date of Service March 25, 2018 Assessment & Plan (1) Gram-positive bacteremia: possible source Diabetic foot ulcer/infected left fourth toe blood culture X2 gram positive bacteremia /staph aureus MRSA screen positive Abx changed to daptomycin ID eval requested -appreciate input Continue antibiotic, mainly need long-term IV antibiotic treatment Recent echo, showed no evidence of endocarditis Repeat blood cultures ordered shows gram-positive bacteremia, MRSA (2) Toe ulcer due to DM: Acute on chronic left foot diabetic toe ulcer Noted to have drainage of pus Possible leading to infection/gram-positive bacteremia, recurrent fever Podiatry evaluation requested appreciate input, no need for I&D, mentioned continue to IV antibiotics, outpatient follow-up with podiatry CT of left foot shows no evidence of osteomyelitis (3) Complication of intravenous catheter site: Symptom has improved after warm compression developed redness , pain and swelling at rt hand IV site possible infiltration USG of rt arm shows superficial venous thrombosis , cont symtomaic management keep limb elevated pain control (4) Pleural effusion: CT chest showed small left and moderate right pleural effusions. CT abd/chest showed Fluid overload manifested by bilateral pleural effusions with moderate body wall edema and trace abdominal pelvic ascites. S/P thoracentesis where 1.3L pleural fluid removed Pulmonology consulted Clinically improved significantly Stable (5) Acute systolic CHF (congestive heart failure), NYHA class 3: stable no complain of orthpea History of ischemic cardiomyopathy with combined systolic and diastolic heart failure, Presented with decompensated CHF with weight gain, dyspnea on exertion, orthopnea Lasix/sulfa allergies S/P thoracentesis done Cardiology on board Appreciate input, diuretics kept on hold secondary to worsening of renal failure Volume status remained stable ECHO showed no wall motion abnormality, EF 55-60 % Entresto was discontinued since ECHO showed preserve EF Continue carvedilol BID Continue fluid restriction 1.5 L (6) Hypotension: BP improved Coreg resumed with holding parameters (7) Hyponatremia: improved Diuretics discontinued (8) BLANCA (acute kidney injury): cr continued to worsen ordered for IVF cont to hold diuretics appreciate input from Nephrology (9) Stage III chronic kidney disease: Mostly related to diuretic and Entresto Entresto d/c Worsening of renal function today, ordered for IV fluids, nephrology following (10) DM type 2 (diabetes mellitus, type 2): Insulin sliding scale Monitor BS (11) CAD (coronary artery disease): no complain of angina no Topete Elevated troponin due to CHF decompensated with biventricular failure EKG showed no ischemic changes Troponin tending down On plavix, aspirin and carvedilol Stable (12) Ischemic cardiomyopathy: Severe ischemic cardiomyopathy with biventricular failure Status post AICD placement Echo shows improved/preserved ejection fraction, Entresto discontinued (13) GERD (gastroesophageal reflux disease): Continue PPI (14) DVT prophylaxis: Subcu heparin (15) Discharge planning issues: pt needs continued hospital stay for infection /gram positive bactermia (16) Sepsis: Sepsis, not present on admission Patient developed fever tachycardia hypotension Possible source of infection infected left second toe, wound culture ordered Blood culture positive for gram-positive bacteremia Continue with IV daptomycin, ID consult requested Next, CT of right foot shows no evidence of osteomyelitis Present on Admission?: No Subjective No fever or chills, complains of feeling very tired and weak, right arm swelling and pain continues to improve Physical Exam 2 Vital Signs (Past 24 Hours): Last Vital Signs Temp 36.6 C 03/25/18 15:17 Pulse 76 03/25/18 15:17 Resp 20 03/25/18 15:17 BP 100/69 03/25/18 15:17 Pulse Ox 96 03/25/18 15:17 Constitutional: WD/WN, vitals as above Eyes: PERRL, conjunctivae normal, anicteric sclerae ENMT: external ear and nose normal, oropharynx normal Neck: trachea midline, no thyromegaly Respiratory: normal respiratory effort; no respiratory distress Auscultation: + diminished lung sounds; no crackles, no rales and no wheezes Cardiovascular: Rate/Rhythm: regular rate and regular rhythm Gastrointestinal (Abdomen): normal bowel sounds, soft, nontender, no hepatosplenomegaly Musculoskeletal: Head/Neck/Chest: normocephalic and head atraumatic Extremities: + limited ROM of upper extremity, + hand abnormality (swelling of rt hand extening form wrist to mid arm , red , + tenderness -site of prior IV site ) and + foot abnormality (Open wound on left fourth toe, with surrounding erythema, positive drainage with pus) Skin: no rashes, warm and dry Neurologic: PERRL, EOMI, accommodation nl, no face palsy, no dysarthria Psychiatric: A+Ox3, euthymic affect _ (1) DM type 2 (diabetes mellitus, type 2) Chronic kidney disease stage: stage 3 (moderate) Diabetes mellitus complication detail: with chronic kidney disease Diabetes mellitus complication status: with kidney complications 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 transplanted heart: [place] heart Qualified Code (s): I25.10 - Atherosclerotic heart disease of [place] coronary artery without angina pectoris (3) Toe ulcer due to DM Diabetes mellitus type: type 2 Laterality: left Non-pressure ulcer stage: limited to breakdown of skin Qualified Code(s): E11.621 - Type 2 diabetes mellitus with foot ulcer; L97.521 - Non-pressure chronic ulcer of other part of left foot limited to breakdown of skin (4) GERD (gastroesophageal reflux disease) Esophagitis presence: esophagitis presence not specified Qualified Code(s): K21.9 - Gastro-esophageal reflux disease without esophagitis (5) Hypotension Hypotension type: unspecified hypotension type Trimester: Qualified Code(s) : I95.9 - Hypotension, unspecified
[2018-03-25] MEDS: MIRTAZAPINE TAB 15 MG TAB PO SCH (20:29)
[2018-03-25] MEDS: PRAMIPEXOLE DIHYDROCHLO 0.25 MG TAB PO SCH (20:34)
[2018-03-25] MEDS: DAPTOmycin 450 MG in SYRINGE 0 ML IV SCH (20:45)
[2018-03-25] MEDS: TRAMADOL HCL 50 MG TABLET PO PRN (21:42)
[2018-03-25] MEDS: LEVALBUTEROL 1.25MG/0.5ML NEB INH PRN (23:58)
[2018-03-25] MEDS: IPRATROPIUM BROMIDE NEB SOLN 0.02% 2.5 ML VIAL INH PRN (23:58)
[2018-03-26] MEDS: LEVOTHYROXINE SODIUM 150 MCG TABLET PO SCH (05:33)
[2018-03-26] MEDS: HEPARIN SOD 5,000 UNIT/0.5 ML VIAL SQ SCH ×3 (05:33→21:09)
[2018-03-26 07:34] LABS: Mean Corpuscular Hgb Conc 31.2 g/dL (32-36)
[2018-03-26 07:45] LABS: Hematocrit (blood only) 35.6 % (37-47); Hemoglobin 11.1 g/dL (12.0-16.0); Mean Corpuscular Volume 84.4 fL (80-100); RDW Coefficient of Variation 15.2 % (11.5-14.5); RDW Standard Deviation 46.6 fL (36.4-46.3); Red Blood Count 4.22 M/uL (4.2-5.4); White Blood Count 8.26 K/uL (4.8-10.8)
[2018-03-26 08:00] LABS: Platelet Count 110 K/uL (130-400)
[2018-03-26 08:11] LABS: BUN Creatinine Ratio 41.2 (10-20); Calcium 8.6 mg/dl (8.5-10.1); Creatinine Clr Calc Pharmacy 52.9 ml/min; Est GFR (African American) 48.5; Est GFR (Non-African American) 41.8; Potassium 3.8 mmol/L (3.5-5.1)
[2018-03-26] MEDS: CARVEDILOL 6.25 MG TAB PO SCH ×2 (09:22→20:43)
[2018-03-26] MEDS: PREGABALIN 150 MG CAP PO SCH ×2 (09:22→20:42)
[2018-03-26] MEDS: CEROVITE ADV FORMULA TAB PO SCH (09:23)
[2018-03-26] MEDS: VENLAFAXINE HCL XR 150 MG CAPXR PO SCH (09:23)
[2018-03-26] MEDS: OXYBUTYNIN CHLORIDE 5 MG TAB PO SCH ×2 (09:23→20:43)
[2018-03-26] MEDS: MAGNESIUM OXIDE 400 MG TAB PO SCH ×2 (09:24→20:44)
[2018-03-26] MEDS: INSULIN GLARGINE SOLOSTAR 100 UNITS/ML 3 ML PEN SC SCH ×2 (09:28→21:06)
[2018-03-26] MEDS: INSULIN ASPART 100 UNITS/ML 3 ML PEN SC SCH ×4 (09:29→20:47)
--- NOTE | 2018-03-26 10:11 | Nephrology Progress Note ---
Date of Service March 26, 2018 Assessment & Plan (1) Acute kidney injury superimposed on CKD: Mrs. Marsh has an ICM w/ LVEF ~ 25 % and is s/p AICD. She suffers from obesity, pulmonary HTN, COPD, KAVIN, AODM and PVD. Mrs. Marsh reports a h/o anaphylaxis to Furosemide and ELADIO inhibitors. She was admitted to [facility] 03/11/18 w/ dyspnea, tense LE swelling and a 7 kg weight gain. Evaluation revealed the presence of abdominal ascites and bilateral pleural effusions. Mrs. Marsh underwent R thoracentesis 03/11/18. She was managed w/ Zaroxolyn and Entresto. Her hospital course has been complicated by BLANCA and hyponatremia (baseline Cr1.1) -- Hold Entresto (ARB) -- Hold Ethacrynic acid. Patient is now diuresing on her own -- IVF stopped. Patient is now clinically euvolemic. -- Monitor volume status and PRP (2) Hyponatremia: -- Resolved off thiazide diuretic therapy -- Monitor PRP (3) Chronic combined systolic (congestive) and diastolic (congestive) heart failure: -- Recent echo documents normal LVEF -- Continue Carvedilol as per Cardiology -- Entresto stopped due to hypotension and BLANCA Subjective Mrs. Marsh was seen and examined in her hospital room this morning. Diuretics have been held but she continues to diurese on her own. Mrs. Marsh voices no medical concerns. She denies fever or dyspnea. Respiratory: no dyspnea Cardiovascular: no chest pain and no edema Physical Exam 2 Vital Signs (Past 24 Hours): Last Vital Signs Temp 36.5 C 03/26/18 07:25 Pulse 74 03/26/18 07:25 Resp 18 03/26/18 07:25 BP 108/72 03/26/18 07:25 Pulse Ox 93 03/26/18 07:25 Constitutional: + ill appearing Eyes: PERRL, conjunctivae normal, anicteric sclerae Neck: trachea midline Respiratory: Auscultation: lungs clear to auscultation bilaterally Cardiovascular: Rate/Rhythm: regular rate and regular rhythm Extremities: no edema Gastrointestinal (Abdomen): Percussion/Palpation: abdomen soft; abdomen nontender (obese) Results & Data Laboratory Results Laboratory Tests 03/26/18 03/26/18 07:10 07:10 WBC 8.26 Hgb 11.1 L Hct 35.6 L Plt Count 110 L Sodium 137 Potassium 3.8 Chloride 98 Carbon Dioxide 32 BUN 55 H Creatinine 1.33 H D
--- NOTE | 2018-03-26 11:10 | Orthopedic Progress Note ---
Date of Service March 26, 2018 Assessment & Plan (1) Acquired claw toe of left foot: Cellulitic left 2nd digit with open wound - MRSA was cultured, unclear if this is skin contaminant or not was callus was in place at time of culture. Regardless I do advise treatment for soft tissue infection with MRSA. There is erythema to digit today however no additional local SOI are present at this time. CT is negative for cortical erosions. Wound appears healthy at this point. I performed a saline wet to dry dressing change with coban. This can be performed daily by nursing staff. Her arterial angiogram reveals no significant stenosis however diffuse atherosclerosis is present. I believe continuing to monitor this issue would be the best course of action. If she fails to heal the wound within normal time period, she can follow with vascular surgery vs interventional cardiology as outpatient. I will continue to monitor the wound healing progress as outpatient and make referral if needed. Digit can be monitored as outpatient from here. She can fu within 1 week of discharge with my office. I can be reached at [phone] for scheduling her outpatient appointment. Thank you for the consultation allowing me to take part in this patient's care. Please feel free to contact me with any questions directly at [phone] Subjective Pt seen resting comfortably at bedside today. She does have new culture results from 03/24 growing MRSA from digit. She relates no pain to digit. Did relate some significant bleeding from debridement yesterday. States bleeding is well controlled at this time. Denies any NVFC CP SOB. Does admit to being tired. Physical Exam 2 Vital Signs (Past 24 Hours): Last Vital Signs Temp 36.5 C 03/26/18 07:25 Pulse 74 03/26/18 07:25 Resp 18 03/26/18 07:25 BP 108/72 03/26/18 07:25 Pulse Ox 93 03/26/18 07:25 Physical Exam: VSS and AAOX3 Arterial supplyl is intact without significant occlusion however significant atherosclerotic disease is noted per duplex arterial angiogram. NVS is unchanged on exam from yesterday. Her digit is less erythematous and swollen today. Minimal opening is noted with unchanged measurements. No depth to wound is appreciated and no malodor, purulence, calor or tenderness is present to the digit. Results & Data Laboratory Results WBC is normalized without leukocytosis
--- NOTE | 2018-03-26 18:13 | Hospitalist Progress Note ---
Date of Service March 26, 2018 Assessment & Plan (1) Sepsis: Risk criteria, developed fever, tachycardia, hypotension Blood cultures positive for gram-positive bacteremia Source of infection left second toe diabetic foot ulcer CT of lower extremity ordered, podiatry consulted ID following (2) Gram-positive bacteremia: possible source Diabetic foot ulcer/infected left fourth toe blood culture X2 gram positive 12 2618 bacteremia /staph aureus MRSA screen positive Abx changed to daptomycin ID eval requested -appreciate input Continue antibiotic, mainly need long-term IV antibiotic treatment Recent echo, showed no evidence of endocarditis Repeat blood cultures ordered report pending If repeat blood culture positive then will consider CALIN (3) Toe ulcer due to DM: Acute on chronic left foot diabetic toe ulcer Noted to have drainage of pus Possible leading to infection/gram-positive bacteremia, recurrent fever Podiatry evaluation requested CT of left foot shows no evidence of osteomyelitis (4) Complication of intravenous catheter site: developed redness , pain and swelling at rt hand IV site possible infiltration USG of rt arm shows superficial venous thrombosis , cont symptomatic management keep limb elevated pain control No need for anticoagulation, clinically improved after warm compression (5) Pleural effusion: CT chest showed small left and moderate right pleural effusions. CT abd/chest showed Fluid overload manifested by bilateral pleural effusions with moderate body wall edema and trace abdominal pelvic ascites. S/P thoracentesis 1.3L pleural fluid removed Pulmonology on board Clinically improved significantly Stable (6) Acute systolic CHF (congestive heart failure), NYHA class 3: stable no complain of orthpea History of ischemic cardiomyopathy with combined systolic and diastolic heart failure, Presented with decompensated CHF with weight gain, dyspnea on exertion, orthopnea Lasix/sulfa allergies S/P thoracentesis done Cardiology on board Was started with Zaroxolyn and Entresto, ECHO showed no wall motion abnormality, EF 55-60 % Entresto was discontinued since ECHO showed preserve EF Continue carvedilol BID Continue fluid restriction 1.5 L Terrorist attacks kept on hold secondary to worsening of creatinine (7) Hypotension: Due to sepsis, Blood pressure remains stable continue Coreg with holding parameters (8) Hyponatremia: improved Mostly related to diuretic (Zaroxolyn) and Entresto Diuretics kept on hold (9) BLANCA (acute kidney injury): Failure in the setting of CKD stage III Creatinine continues to worsen, nephrology following closely, appreciate input, continue to hold diuretics, no NSAIDs or contrast studies, continue to monitor volume status (10) Stage III chronic kidney disease: Worsening of renal function, nephrology following closely, avoid diuretics , avoid NSAIDs contrast studies (11) DM type 2 (diabetes mellitus, type 2): Insulin sliding scale Monitor BS (12) CAD (coronary artery disease): no complain of angina no Topete Elevated troponin due to CHF decompensated with biventricular failure EKG showed no ischemic changes On plavix, aspirin and carvedilol Stable (13) Ischemic cardiomyopathy: Severe ischemic cardiomyopathy with biventricular failure Status post AICD placement Presented with decompensated CHF Volume status improved after diuresis/thoracentesis Interest to discontinued Developed gram-positive bacteremia May need removal of pacemaker/AICD if-there is persistently Gram positive blood culture while on IV antibiotic (14) GERD (gastroesophageal reflux disease): Continue PPI (15) DVT prophylaxis: Subcu heparin (16) Discharge planning issues: pt needs continued hospital stay for infection /gram positive bactermia Subjective Has been Afebrile, no fever or chills Continue have pain and swelling on right upper arm Physical Exam 2 Vital Signs (Past 24 Hours): Last Vital Signs Temp 36.5 C 03/26/18 16:30 Pulse 71 03/26/18 16:30 Resp 20 03/26/18 16:30 BP 104/62 03/26/18 16:30 Pulse Ox 98 03/26/18 16:30 Constitutional: WD/WN, vitals as above Eyes: PERRL, conjunctivae normal, anicteric sclerae ENMT: external ear and nose normal, oropharynx normal Neck: trachea midline, no thyromegaly Respiratory: normal respiratory effort; no respiratory distress Auscultation: + diminished lung sounds; no crackles, no rales and no wheezes Cardiovascular: Rate/Rhythm: regular rate and regular rhythm Gastrointestinal (Abdomen): normal bowel sounds, soft, nontender, no hepatosplenomegaly Musculoskeletal: Head/Neck/Chest: normocephalic and head atraumatic Extremities: + limited ROM of upper extremity, + hand abnormality (swelling of rt hand extening form wrist to mid arm , red , + tenderness -site of prior IV site ) and + foot abnormality (Open wound on left fourth toe, with surrounding erythema, positive drainage with pus) Skin: no rashes, warm and dry Neurologic: PERRL, EOMI, accommodation nl, no face palsy, no dysarthria Psychiatric: A+Ox3, euthymic affect _ (1) DM type 2 (diabetes mellitus, type 2) Chronic kidney disease stage: stage 3 (moderate) Diabetes mellitus complication detail: with chronic kidney disease Diabetes mellitus complication status: with kidney complications Diabetes mellitus rodent exterminator insulin use: unspecified rodent exterminator insulin use status Diabetes mellitus macular edema: Diabetic retinopathy severity: Laterality: Proliferative retinopathy type: Qualified Code(s): E11.22 - Type 2 diabetes mellitus with diabetic chronic kidney disease; N18.3 - Chronic kidney disease, stage 3 ( moderate) (2) CAD (coronary artery disease) Associated angina: without angina Coronary Disease-Associated Artery/Lesion type: [place] artery [place] vs. transplanted heart: [place] heart Qualified Code (s): I25.10 - Atherosclerotic heart disease of [place] coronary artery without angina pectoris (3) Toe ulcer due to DM Diabetes mellitus type: type 2 Laterality: left Non-pressure ulcer stage: limited to breakdown of skin Qualified Code(s): E11.621 - Type 2 diabetes mellitus with foot ulcer; L97.521 - Non-pressure chronic ulcer of other part of left foot limited to breakdown of skin (4) GERD (gastroesophageal reflux disease) Esophagitis presence: esophagitis presence not specified Qualified Code(s): K21.9 - Gastro-esophageal reflux disease without esophagitis (5) Hypotension Hypotension type: unspecified hypotension type Trimester: Qualified Code(s) : I95.9 - Hypotension, unspecified (6) Sepsis Sepsis type: methicillin resistant Staphylococcus aureus Qualified Code(s): A41.02 - Sepsis due to Methicillin resistant Staphylococcus aureus
[2018-03-26] MEDS: MIRTAZAPINE TAB 15 MG TAB PO SCH (20:43)
[2018-03-26] MEDS: PRAMIPEXOLE DIHYDROCHLO 0.25 MG TAB PO SCH (20:44)
[2018-03-26] MEDS: DAPTOmycin 450 MG in SYRINGE 0 ML IV SCH (21:08)
[2018-03-27] MEDS: HEPARIN SOD 5,000 UNIT/0.5 ML VIAL SQ SCH ×3 (05:23→21:55)
[2018-03-27] MEDS: LEVOTHYROXINE SODIUM 150 MCG TABLET PO SCH (05:23)
[2018-03-27 06:59] LABS: Calcium 8.8 mg/dl (8.5-10.1); Creatinine Clr Calc Pharmacy 60.1 ml/min; Est GFR (African American) 57.8; Est GFR (Non-African American) 49.9; Potassium 4.2 mmol/L (3.5-5.1)
[2018-03-27 07:03] LABS: Hematocrit (blood only) 35.5 % (37-47); Hemoglobin 11.1 g/dL (12.0-16.0); Mean Corpuscular Hgb Conc 31.3 g/dL (32-36); Mean Corpuscular Volume 84.3 fL (80-100); Platelet Count 120 K/uL (130-400); RDW Coefficient of Variation 15.3 % (11.5-14.5); RDW Standard Deviation 46.8 fL (36.4-46.3); Red Blood Count 4.21 M/uL (4.2-5.4); White Blood Count 9.02 K/uL (4.8-10.8)
[2018-03-27] MEDS: CARVEDILOL 6.25 MG TAB PO SCH ×2 (08:35→21:51)
[2018-03-27] MEDS: VENLAFAXINE HCL XR 150 MG CAPXR PO SCH (08:35)
[2018-03-27] MEDS: MAGNESIUM OXIDE 400 MG TAB PO SCH ×2 (08:36→21:55)
[2018-03-27] MEDS: OXYBUTYNIN CHLORIDE 5 MG TAB PO SCH ×2 (08:37→21:52)
[2018-03-27] MEDS: CEROVITE ADV FORMULA TAB PO SCH (08:37)
[2018-03-27] MEDS: INSULIN ASPART 100 UNITS/ML 3 ML PEN SC SCH ×5 (08:38→21:58)
[2018-03-27] MEDS: INSULIN GLARGINE SOLOSTAR 100 UNITS/ML 3 ML PEN SC SCH ×2 (08:38→21:59)
[2018-03-27] MEDS: PREGABALIN 150 MG CAP PO SCH ×2 (08:42→21:53)
--- NOTE | 2018-03-27 10:28 | Nephrology Progress Note ---
Date of Service March 27, 2018 Assessment & Plan (1) Acute kidney injury superimposed on CKD: Mrs. Marsh has an ICM w/ LVEF ~ 25 % and is s/p AICD. She suffers from obesity, pulmonary HTN, COPD, KAVIN, AODM and PVD. Mrs. Marsh reports a h/o anaphylaxis to Furosemide and EALDIO inhibitors. She was admitted to [facility] 03/11/18 w/ dyspnea, tense LE swelling and a 7 kg weight gain. Evaluation revealed the presence of abdominal ascites and bilateral pleural effusions. Mrs. Marsh underwent R thoracentesis 03/11/18. She was managed w/ Zaroxolyn and Entresto. Her hospital course has been complicated by BLANCA and hyponatremia (baseline Cr1.1) -- Hyponatremia has corrected. Patient is diuresing on her own. She appears clinically euvolemic and is now back to baseline kidney function. No further Nephrology evaluation is indicated at this time. Will sign off. Please call if further assistance is needed. -- Recommend that patient be discharged w/ Ederin 25 mg po BID PRN > 5 lb wt gain or progressive LE swelling. Outpatient follow up can be provided by the Cardiology/CHF clinic (2) Hyponatremia: -- Resolved off thiazide diuretic therapy -- Monitor PRP (3) Chronic combined systolic (congestive) and diastolic (congestive) heart failure: -- Recent echo documents normal LVEF -- Continue Carvedilol as per Cardiology -- Entresto stopped due to hypotension and BLANCA Subjective Mrs. Marsh was seen and examined in her hospital room this morning. Diuretics have been held but she continues to diurese on her own (net 860 cc negative overnight). Mrs. Marsh voices no medical concerns. She denies fever or dyspnea. Physical Exam 2 Vital Signs (Past 24 Hours): Last Vital Signs Temp 36.7 C 03/27/18 07:35 Pulse 80 03/27/18 07:35 Resp 20 03/27/18 07:35 BP 106/72 03/27/18 07:35 Pulse Ox 90 03/27/18 07:35 Constitutional: + ill appearing Eyes: PERRL, conjunctivae normal, anicteric sclerae Neck: trachea midline Respiratory: Auscultation: lungs clear to auscultation bilaterally Cardiovascular: Rate/Rhythm: regular rate and regular rhythm Extremities: no edema Gastrointestinal (Abdomen): Percussion/Palpation: abdomen soft; abdomen nontender (obese) Results & Data Laboratory Results Laboratory Tests 03/27/18 03/27/18 05:51 05:51 WBC 9.02 Hgb 11.1 L Plt Count 120 L Sodium 137 Potassium 4.2 Chloride 100 Carbon Dioxide 32 BUN 52 H Creatinine 1.15 Glucose 114 H
--- NOTE | 2018-03-27 10:48 | Infectious Disease Progress Nt ---
Date of Service March 27, 2018 Assessment & Plan (1) Staphylococcus aureus septicemia: continue dapto, repeat cultures x 2 today 03/22 and 03/24 + - recent negative TTE but with pacemaker/AICD may need CALIN with continued + cultures. will require prolonged course of IV abx. (2) Thrombophlebitis arm: Subjective pt oob to chair, feeling better. denies f/c still with swelling and pain in right wrist, somewhat improved. remains on dapto, tolerating well. repeat blood cultures + MRSA as well. wound culture foot also growing MRSA, ct done of foot, negative for osteo. wbc 9. all remaining ros reviewed and are negative Physical Exam 2 Vital Signs (Past 24 Hours): Last Vital Signs Temp 36.7 C 03/27/18 07:35 Pulse 80 03/27/18 07:35 Resp 20 03/27/18 07:35 BP 106/72 03/27/18 07:35 Pulse Ox 90 03/27/18 07:35 Constitutional: WD/WN, vitals as above Eyes: PERRL, conjunctivae normal, anicteric sclerae ENMT: external ear and nose normal, oropharynx normal Neck: normal visual inspection Respiratory: normal respiratory effort, lungs clear to auscultation Cardiovascular: RRR, no murmur, no edema Gastrointestinal (Abdomen): normal bowel sounds, soft, nontender, no hepatosplenomegaly Musculoskeletal: no cyanosis or clubbing, extremities motor strength 5/5 Skin: no rashes, warm and dry right wrist with min edema, still with erythema and tenderness, improved Psychiatric: A+Ox3, euthymic affect Results & Data Laboratory Results Microbiology 03/24/18 10:47 Blood Blood Culture - Preliminary Staph aureus MRSA 03/24/18 16:50 Toe,Left Second Gram Stain - Final 03/24/18 16:50 Toe,Left Second Wound Culture - Final Staph aureus MRSA 03/24/18 08:50 Sputum, Expectorated Gram Stain - Final 03/24/18 08:50 Sputum, Expectorated Sputum Culture - Final Heavy normal lelo. 03/24/18 10:53 Blood Blood Culture - Preliminary No growth to date. 03/22/18 19:45 Blood Blood Culture - Final Staphylococcus aureus 03/22/18 19:37 Blood Blood Culture - Final Staph aureus MRSA 03/12/18 12:00 Pleural Fluid Gram Stain - Final 03/12/18 12:00 Pleural Fluid Aerobic and Anaerobic Culture - Final No growth 03/11/18 19:06 Blood Blood Culture - Final No growth 03/11/18 18:56 Blood Blood Culture - Final No growth
--- NOTE | 2018-03-27 15:22 | Cardiology Progress Note ---
Date of Service March 27, 2018 Assessment & Plan (1) Chronic combined systolic (congestive) and diastolic (congestive) heart failure: She continues to affect a reasonable diuresis on epic chronic acid. Electrolytes appear to be stable. LV systolic function was noted to be normal on echocardiogram during this admission. Her edema and breathing appears to be improved. She still appears to have an element of pulmonary vascular congestion on exam but should continue her diuresis. (2) CAD (coronary artery disease): Post CABG patient with no angina. Continue anti-platelet therapy if no contraindications. Continue beta-angela. She is intolerant to statin therapy. (3) Ischemic cardiomyopathy: Echocardiogram suggests preserved LV systolic function. She will be continued on her carvedilol. Entresto was discontinued during this admission and is not currently indicated given her normal LV systolic function. (4) Hyponatremia: Resolved (5) Hypotension: Resolved (6) Gram-positive bacteremia: Possibly related to an IV at the right wrist. She is also noted to have a diabetic foot ulcer. Staff bacteremia is highly associated with cardiac device infections. While the device may not be the primary source of infection , it commonly becomes involved in the setting of high Staph aureus bacteremia. For persistently positive blood cultures extraction should be considered. (7) Complication of intravenous catheter site: Still erythematous. Repeat blood cultures drawn. Subjective This afternoon the patient claims to be feeling better overall. She still reports an element of dyspnea with exertion. She did ambulate with a walker earlier and felt a little �shaky�. She did not report any pain. She believes her lower extremity edema is improved since admission. Physical Exam 2 Vital Signs (Past 24 Hours): Last Vital Signs Temp 36.7 C 03/27/18 07:35 Pulse 80 03/27/18 07:35 Resp 20 03/27/18 07:35 BP 106/72 03/27/18 07:35 Pulse Ox 99 03/27/18 14:08 Physical Exam: She is alert and oriented x3. Mood affect appear normal. She answered all questions appropriately. HEENT: Sclerae are anicteric. Pupils are equal and reactive to light and accommodation. Extraocular movements were intact. Neuro: Cranial nerves intact Neck: Examination of the submandibular region did not reveal any significant lymphadenopathy. There was no evidence of jugular venous distention. The thyroid was not enlarged. Lungs: She crackles at the bases bilaterally, more noticeable on the right versus the left. She has normal respiratory effort without use of accessory muscles. There is normal pulmonary excursion. Cardiac: The rhythm was regular. S1 and S2 were normal. There are no murmurs on examination. The PMI was not markedly displaced on palpation. Chest: Evaluation of the ICD implant site in left upper pectoral area did not reveal any evidence of erythema, swelling or tenderness Abdomen: The abdomen was soft and nontender. Extremities: Patient has bilateral radial pulses that are equal in intensity. There is no evidence cyanosis or clubbing. Mild lower extremity edema bilaterally. Skin: She had an erythematous rash on the right wrist. Results & Data Laboratory Results Abnormal Lab Results 03/26/18 03/26/18 03/27/18 16:21 20:38 05:51 WBC RBC Hgb Hct MCV MCH MCHC RDW Std Deviation RDW Coeff of [place] Plt Count Platelet Estimate Sodium 137 Potassium 4.2 Chloride 100 Carbon Dioxide 32 Anion Gap 5.0 BUN 52 H Creatinine 1.15 Est Cr Clr Drug Dosing 60.1 Est GFR ( Amer) 57.8 Est GFR (Non-Af Amer) 49.9 BUN/Creatinine Ratio 45.0 H Glucose 114 H POC Glucose 106 H 193 H Calcium 8.8 03/27/18 03/27/18 03/27/18 05:51 07:59 11:27 WBC 9.02 RBC 4.21 Hgb 11.1 L Hct 35.5 L MCV 84.3 MCH 26.4 MCHC 31.3 L RDW Std Deviation 46.8 H RDW Coeff of [place] 15.3 H Plt Count 120 L Platelet Estimate Decreased Sodium Potassium Chloride Carbon Dioxide Anion Gap BUN Creatinine Est Cr Clr Drug Dosing Est GFR ( Amer) Est GFR (Non-Af Amer) BUN/Creatinine Ratio Glucose POC Glucose 101 H 201 H Calcium _ (1) CAD (coronary artery disease) Associated angina: without angina Coronary Disease-Associated Artery/Lesion type: [place] artery [place] vs. transplanted heart: [place] heart Qualified Code (s): I25.10 - Atherosclerotic heart disease of [place] coronary artery without angina pectoris (2) Hypotension Hypotension type: unspecified hypotension type Trimester: Qualified Code(s) : I95.9 - Hypotension, unspecified
--- NOTE | 2018-03-27 18:19 | Hospitalist Progress Note ---
Date of Service March 27, 2018 Assessment & Plan (1) Sepsis: * Sepsis, not POA Meets criteria of sepsis, Source of infection infected diabetic foot wound, associated with Gram positive bacteremia, MRSA, was febrile Severe tachycardia and hypotension Clinically improved after IV fluids antibiotic Will need to continue IV daptomycin for long-term ID following appreciate input (2) Gram-positive bacteremia: Blood cultures positive for MRSA: possible source Diabetic foot ulcer/infected left fourth toe With culture growing staph aureus MRSA blood culture X2 gram positive bacteremia /staph aureus MRSA screen positive Abx changed to daptomycin ID eval requested -appreciate input Continue antibiotic, will need long-term IV antibiotic treatment Repeat blood culture ordered on 03/27/2019, report pending Discussed with cardiology, very high risk of pacemaker wiring infection with blood cultures positive for MRSA We will follow repeat blood culture on 03/27/2019 If repeat blood culture remains positive, Patient will need removal of pacemaker /AICD device (3) Toe ulcer due to DM: Acute on chronic left foot diabetic toe ulcer Noted to have drainage of pus Possible source of sepsis, MRSA bacteremia, Wound culture growing MRSA, patient's on IV daptomycin Podiatry evaluation requested appreciate input, no indication of I&D Will need continued outpatient follow-up Patient will need long-term IV antibiotic treatment with daptomycin Ultrasound-guided peripheral line placed which can be used for 3 weeks Repeat blood culture on 03/27/2018 ordered, will need AICD pacemaker removal if repeat blood cultures positive for MRSA CT of left foot shows no evidence of osteomyelitis (4) Complication of intravenous catheter site: developed redness , pain and swelling at rt hand IV site possible infiltration USG of rt arm shows superficial venous thrombosis , cont symtomatic management keep limb elevated pain control No need for anticoagulation Right arm swelling, erythema has completely resolved with heat compression (5) Pleural effusion: CT chest showed small left and moderate right pleural effusions. CT abd/chest showed Fluid overload manifested by bilateral pleural effusions with moderate body wall edema and trace abdominal pelvic ascites. S/P thoracentesis where 1.3L pleural fluid removed Pulmonology on board Clinically improved significantly Stable (6) Acute systolic CHF (congestive heart failure), NYHA class 3: stable no complain of orthpea History of ischemic cardiomyopathy with combined systolic and diastolic heart failure, Presented with decompensated CHF with weight gain, dyspnea on exertion, orthopnea Lasix/sulfa allergies S/P thoracentesis done Cardiology on board Was started on on Zaroxolyn and Entresto: Entresto discontinued as Echo shows preserved EF ECHO showed no wall motion abnormality, EF 55-60 % Diuretics discontinued for worsening of renal function Continue fluid restriction 1.5 L Urology following closely (7) Hypotension: BP stable, continue Coreg with holding parameters (8) Hyponatremia: improved All diuretics on hold appreciate input from Nephrology monitor vol status fluid restriction 1.5 L daily (9) BLANCA (acute kidney injury): cr continued to worsen Given IVF, continue to follow electrolytes, continue to hold diuretics appreciate input from Nephrology (10) Stage III chronic kidney disease: Acute renal injury with worsening of creatinine Mostly related to diuretic and Entresto Entresto d/c Continue to hold diuretics appreciate Nephro input (11) DM type 2 (diabetes mellitus, type 2): Insulin sliding scale Monitor BS (12) CAD (coronary artery disease): no complain of angina no Topete Elevated troponin due to CHF decompensated with biventricular failure EKG showed no ischemic changes Troponin tending down On plavix, aspirin and carvedilol Stable (13) Ischemic cardiomyopathy: Severe ischemic cardiomyopathy with biventricular failure Presented with decompensated CHF Volume status improved after diuresis/thoracentesis At present diuretics on hold because dehydration, acute renal failure (14) GERD (gastroesophageal reflux disease): Continue PPI (15) DVT prophylaxis: Subcu heparin (16) Discharge planning issues: And will need long-term rehab, IV antibiotic, wound care, worsening of functional status/ambulatory dysfunction history of recurrent falls Referral made to [facility], unable to cover for IV daptomycin, continue PT OT , social service following for discharge planning Subjective Sitting on the chair, denies of pain or discomfort No complaint of shortness of breath, no fever, right arm swelling, pain completely resolved No drainage pain on left second toe Physical Exam 2 Vital Signs (Past 24 Hours): Last Vital Signs Temp 36.7 C 03/27/18 07:35 Pulse 80 03/27/18 07:35 Resp 20 03/27/18 07:35 BP 106/72 03/27/18 07:35 Pulse Ox 99 03/27/18 14:08 Constitutional: WD/WN, vitals as above Eyes: PERRL, conjunctivae normal, anicteric sclerae ENMT: external ear and nose normal, oropharynx normal Neck: trachea midline, no thyromegaly Respiratory: normal respiratory effort; no respiratory distress Auscultation: + diminished lung sounds; no crackles, no rales and no wheezes Cardiovascular: Rate/Rhythm: regular rate and regular rhythm Gastrointestinal (Abdomen): normal bowel sounds, soft, nontender, no hepatosplenomegaly Musculoskeletal: Head/Neck/Chest: normocephalic and head atraumatic Extremities: + foot abnormality (Open wound on left fourth toe, with surrounding erythema, positive drainage with pus) Skin: no rashes, warm and dry Neurologic: PERRL, EOMI, accommodation nl, no face palsy, no dysarthria Psychiatric: A+Ox3, euthymic affect _ (1) DM type 2 (diabetes mellitus, type 2) Chronic kidney disease stage: stage 3 (moderate) Diabetes mellitus complication detail: with chronic kidney disease Diabetes mellitus complication status: with kidney complications Diabetes mellitus longterm insulin use: unspecified longterm insulin use status Diabetes mellitus macular edema: Diabetic retinopathy severity: Laterality: Proliferative retinopathy type: Qualified Code(s): E11.22 - Type 2 diabetes mellitus with diabetic chronic kidney disease; N18.3 - Chronic kidney disease, stage 3 ( moderate) (2) CAD (coronary artery disease) Associated angina: without angina Coronary Disease-Associated Artery/Lesion type: [place] artery [place] vs. transplanted heart: [place] heart Qualified Code (s): I25.10 - Atherosclerotic heart disease of [place] coronary artery without angina pectoris (3) Sepsis Sepsis type: methicillin resistant Staphylococcus aureus Qualified Code(s): A41.02 - Sepsis due to Methicillin resistant Staphylococcus aureus (4) Toe ulcer due to DM Diabetes mellitus type: type 2 Laterality: left Non-pressure ulcer stage: limited to breakdown of skin Qualified Code(s): E11.621 - Type 2 diabetes mellitus with foot ulcer; L97.521 - Non-pressure chronic ulcer of other part of left foot limited to breakdown of skin (5) GERD (gastroesophageal reflux disease) Esophagitis presence: esophagitis presence not specified Qualified Code(s): K21.9 - Gastro-esophageal reflux disease without esophagitis (6) Hypotension Hypotension type: unspecified hypotension type Trimester: Qualified Code(s) : I95.9 - Hypotension, unspecified
[2018-03-27] MEDS: TRAMADOL HCL 50 MG TABLET PO PRN (21:51)
[2018-03-27] MEDS: DAPTOmycin 450 MG in SYRINGE 0 ML IV SCH (21:52)
[2018-03-27] MEDS: PRAMIPEXOLE DIHYDROCHLO 0.25 MG TAB PO SCH (21:53)
[2018-03-27] MEDS: MIRTAZAPINE TAB 15 MG TAB PO SCH (21:54)
[2018-03-28] MEDS: HEPARIN SOD 5,000 UNIT/0.5 ML VIAL SQ SCH ×3 (05:46→21:06)
[2018-03-28] MEDS: LEVOTHYROXINE SODIUM 150 MCG TABLET PO SCH (05:46)
[2018-03-28] MEDS: CARVEDILOL 6.25 MG TAB PO SCH ×2 (08:19→21:11)
[2018-03-28] MEDS: CEROVITE ADV FORMULA TAB PO SCH (08:19)
[2018-03-28] MEDS: VENLAFAXINE HCL XR 150 MG CAPXR PO SCH (08:19)
[2018-03-28] MEDS: TRAMADOL HCL 50 MG TABLET PO PRN ×2 (08:20→21:05)
[2018-03-28] MEDS: PREGABALIN 150 MG CAP PO SCH ×2 (08:21→21:04)
[2018-03-28] MEDS: OXYBUTYNIN CHLORIDE 5 MG TAB PO SCH ×2 (08:21→21:36)
[2018-03-28] MEDS: MAGNESIUM OXIDE 400 MG TAB PO SCH ×2 (08:22→21:08)
[2018-03-28] MEDS: INSULIN GLARGINE SOLOSTAR 100 UNITS/ML 3 ML PEN SC SCH ×2 (08:28→21:11)
[2018-03-28] MEDS: INSULIN ASPART 100 UNITS/ML 3 ML PEN SC SCH ×4 (08:29→21:12)
[2018-03-28] MEDS ORDERED: ERGOCALCIFEROL 50,000 UNITS CAP PO SCH (09:00)
[2018-03-28] MEDS: ASPIRIN 81 MG ECTAB PO SCH (12:27)
--- NOTE | 2018-03-28 19:47 | Hospitalist Progress Note ---
Date of Service March 28, 2018 Assessment & Plan (1) Gram-positive bacteremia: possible source Diabetic foot ulcer/infected left fourth toe blood culture X2 gram positive bacteremia /staph aureus MRSA screen positive Abx changed to daptomycin ID eval requested -appreciate input Continue antibiotic, mainly need long-term IV antibiotic treatment Recent echo, showed no evidence of endocarditis Repeat blood cultures ordered shows gram-positive bacteremia, MRSA blood culture on 03/27/18 ordered -report pending d/w Cardiology -pt has recently placed AICD ( approx 6months back for severe cardiomyopathy , reduced EF ) repeat ECHO shows improved , normalized EF high risk for line /device infection ( AICD ) with persisted gram positive bacteremia if Blood cultue on 03/27/18 grows Staph will need to remove AICD (2) Toe ulcer due to DM: Acute on chronic left foot diabetic toe ulcer Noted to have drainage of pus Possible leading to infection/gram-positive bacteremia, recurrent fever Podiatry evaluation requested appreciate input, no need for I&D, mentioned continue to IV antibiotics, outpatient follow-up with podiatry CT of left foot shows no evidence of osteomyelitis (3) Complication of intravenous catheter site: Symptom has improved after warm compression developed redness , pain and swelling at rt hand IV site possible infiltration USG of rt arm shows superficial venous thrombosis , cont symtomaic management keep limb elevated pain control ` (4) Pleural effusion: CT chest showed small left and moderate right pleural effusions. CT abd/chest showed Fluid overload manifested by bilateral pleural effusions with moderate body wall edema and trace abdominal pelvic ascites. S/P thoracentesis where 1.3L pleural fluid removed Pulmonology consulted Clinically improved significantly Stable (5) Acute systolic CHF (congestive heart failure), NYHA class 3: stable no complain of orthpea History of ischemic cardiomyopathy with combined systolic and diastolic heart failure, Presented with decompensated CHF with weight gain, dyspnea on exertion, orthopnea Lasix/sulfa allergies S/P thoracentesis done Cardiology on board Appreciate input, diuretics kept on hold secondary to worsening of renal failure Volume status remained stable ECHO showed no wall motion abnormality, EF 55-60 % Entresto was discontinued since ECHO showed preserve EF Continue carvedilol BID Continue fluid restriction 1.5 L (6) Hypotension: BP improved Coreg resumed with holding parameters (7) Hyponatremia: improved Diuretics discontinued (8) BLANCA (acute kidney injury): cr continued to worsen ordered for IVF cont to hold diuretics appreciate input from Nephrology (9) Stage III chronic kidney disease: Mostly related to diuretic and Entresto Entresto d/c Worsening of renal function today, ordered for IV fluids, nephrology following (10) DM type 2 (diabetes mellitus, type 2): Insulin sliding scale Monitor BS (11) CAD (coronary artery disease): no complain of angina no Tariq Elevated troponin due to CHF decompensated with biventricular failure EKG showed no ischemic changes Troponin tending down On plavix, aspirin and carvedilol Stable (12) Ischemic cardiomyopathy: Severe ischemic cardiomyopathy with biventricular failure Status post AICD placement Echo shows improved/preserved ejection fraction, Entresto discontinued (13) GERD (gastroesophageal reflux disease): Continue PPI (14) DVT prophylaxis: Subcu heparin (15) Discharge planning issues: pt needs continued hospital stay for infection /gram positive bactermia (16) Sepsis: Sepsis, not present on admission Patient developed fever tachycardia hypotension Possible source of infection infected left second toe, wound culture ordered Blood culture positive for gram-positive bacteremia Continue with IV daptomycin, ID consult requested Next, CT of right foot shows no evidence of osteomyelitis Subjective no fever or chills offers no new complain has uSG guided IV site for superintendent terminal ABx ( approx 2 weeks ) for gram positive bacteremia denies of any complain of SOB , chest heaviness or TARIQ Physical Exam 2 Vital Signs (Past 24 Hours): Last Vital Signs Temp 36.8 C 03/28/18 15:51 Pulse 73 03/28/18 15:51 Resp 18 03/28/18 15:51 BP 110/75 03/28/18 15:51 Pulse Ox 94 03/28/18 15:51 Constitutional: WD/WN, vitals as above Eyes: PERRL, conjunctivae normal, anicteric sclerae ENMT: external ear and nose normal, oropharynx normal Neck: trachea midline, no thyromegaly Respiratory: normal respiratory effort; no respiratory distress Auscultation: + diminished lung sounds; no crackles, no rales and no wheezes Cardiovascular: Rate/Rhythm: regular rate and regular rhythm Gastrointestinal (Abdomen): normal bowel sounds, soft, nontender, no hepatosplenomegaly Musculoskeletal: Head/Neck/Chest: normocephalic and head atraumatic Extremities: + limited ROM of upper extremity, + hand abnormality (swelling of rt hand extening form wrist to mid arm , red , + tenderness -site of prior IV site ) and + foot abnormality (Open wound on left fourth toe, with surrounding erythema, positive drainage with pus) Skin: no rashes, warm and dry Neurologic: PERRL, EOMI, accommodation nl, no face palsy, no dysarthria Psychiatric: A+Ox3, euthymic affect _ (1) DM type 2 (diabetes mellitus, type 2) Chronic kidney disease stage: stage 3 (moderate) Diabetes mellitus complication detail: with chronic kidney disease Diabetes mellitus complication status: with kidney complications Diabetes mellitus superintendent terminal insulin use: unspecified superintendent terminal insulin use status Diabetes mellitus macular edema: Diabetic retinopathy severity: Laterality: Proliferative retinopathy type: Qualified Code(s): E11.22 - Type 2 diabetes mellitus with diabetic chronic kidney disease; N18.3 - Chronic kidney disease, stage 3 ( moderate) (2) CAD (coronary artery disease) Associated angina: without angina Coronary Disease-Associated Artery/Lesion type: [place] artery [place] vs. transplanted heart: [place] heart Qualified Code (s): I25.10 - Atherosclerotic heart disease of [place] coronary artery without angina pectoris (3) Sepsis Sepsis type: methicillin resistant Staphylococcus aureus Qualified Code(s): A41.02 - Sepsis due to Methicillin resistant Staphylococcus aureus (4) Toe ulcer due to DM Diabetes mellitus type: type 2 Laterality: left Non-pressure ulcer stage: limited to breakdown of skin Qualified Code(s): E11.621 - Type 2 diabetes mellitus with foot ulcer; L97.521 - Non-pressure chronic ulcer of other part of left foot limited to breakdown of skin (5) GERD (gastroesophageal reflux disease) Esophagitis presence: esophagitis presence not specified Qualified Code(s): K21.9 - Gastro-esophageal reflux disease without esophagitis (6) Hypotension Hypotension type: unspecified hypotension type Trimester: Qualified Code(s) : I95.9 - Hypotension, unspecified
[2018-03-28] MEDS: PRAMIPEXOLE DIHYDROCHLO 0.25 MG TAB PO SCH (21:08)
[2018-03-28] MEDS: MIRTAZAPINE TAB 15 MG TAB PO SCH (21:08)
[2018-03-28] MEDS: DAPTOmycin 450 MG in SYRINGE 0 ML IV SCH (21:35)
[2018-03-29] MEDS: HEPARIN SOD 5,000 UNIT/0.5 ML VIAL SQ SCH ×2 (06:08→08:49)
[2018-03-29] MEDS: LEVOTHYROXINE SODIUM 150 MCG TABLET PO SCH (06:08)
[2018-03-29 07:07] LABS: Est GFR (African American) 49.4; Est GFR (Non-African American) 42.6
[2018-03-29 07:08] LABS: Creatinine Clr Calc Pharmacy 53.1 ml/min
[2018-03-29] MEDS: OXYBUTYNIN CHLORIDE 5 MG TAB PO SCH (09:14)
[2018-03-29] MEDS: ASPIRIN 81 MG ECTAB PO SCH (09:14)
[2018-03-29] MEDS: MAGNESIUM OXIDE 400 MG TAB PO SCH (09:14)
[2018-03-29] MEDS: CEROVITE ADV FORMULA TAB PO SCH (09:14)
[2018-03-29] MEDS: CARVEDILOL 6.25 MG TAB PO SCH (09:14)
[2018-03-29] MEDS: TRAMADOL HCL 50 MG TABLET PO PRN (09:15)
[2018-03-29] MEDS: PREGABALIN 150 MG CAP PO SCH (09:15)
[2018-03-29] MEDS: VENLAFAXINE HCL XR 150 MG CAPXR PO SCH (09:15)
[2018-03-29] MEDS: INSULIN GLARGINE SOLOSTAR 100 UNITS/ML 3 ML PEN SC SCH (10:34)
[2018-03-29] MEDS: INSULIN ASPART 100 UNITS/ML 3 ML PEN SC SCH ×2 (10:35→12:53)
--- NOTE | 2018-03-29 14:27 | Infectious Disease Progress Nt ---
Date of Service March 29, 2018 Assessment & Plan (1) Staphylococcus aureus septicemia: continue dapto, repeat cultures x 2 today 03/22 and 03/24 + - recent negative TTE but with pacemaker/AICD may need CALIN with continued + cultures. will require prolonged course of IV abx. suggest 6 weeks IV abx, will need weekly cbc, cmp, cpk, esr. most recent blood cultures remain negative (2) Thrombophlebitis arm: Subjective 03/27 blood cultures remain negative. tolerating dapto. remains afebrile. Physical Exam 2 Vital Signs (Past 24 Hours): Last Vital Signs Temp 36.8 C 03/29/18 13:10 Pulse 74 03/29/18 13:10 Resp 18 03/29/18 13:10 BP 124/74 03/29/18 13:10 Pulse Ox 100 03/29/18 13:10 Results & Data Laboratory Results Microbiology 03/27/18 12:04 Blood Blood Culture - Preliminary No growth to date. 03/27/18 11:57 Blood Blood Culture - Preliminary No growth to date. 03/24/18 10:47 Blood Blood Culture - Preliminary Staph aureus MRSA 03/24/18 16:50 Toe,Left Second Gram Stain - Final 03/24/18 16:50 Toe,Left Second Wound Culture - Final Staph aureus MRSA 03/24/18 08:50 Sputum, Expectorated Gram Stain - Final 03/24/18 08:50 Sputum, Expectorated Sputum Culture - Final Heavy normal lelo. 03/24/18 10:53 Blood Blood Culture - Preliminary No growth to date. 03/22/18 19:45 Blood Blood Culture - Final Staphylococcus aureus 03/22/18 19:37 Blood Blood Culture - Final Staph aureus MRSA 03/12/18 12:00 Pleural Fluid Gram Stain - Final 03/12/18 12:00 Pleural Fluid Aerobic and Anaerobic Culture - Final No growth 03/11/18 19:06 Blood Blood Culture - Final No growth 03/11/18 18:56 Blood Blood Culture - Final No growth
--- NOTE | 2018-03-29 14:41 | Hospitalist Progress Note ---
Date of Service March 29, 2018 Assessment & Plan (1) Gram-positive bacteremia: possible source Diabetic foot ulcer/infected left fourth toe blood culture X2 gram positive bacteremia /staph aureus and MRSA screen positive Repeat blood cx on 03/27 no growth for now ID on board recommended to continue current management Continue IV dapto to complete 6 weeks course ( will need an additional 2 weeks) Recent echo showed no evidence of endocarditis If blood cx on 03/27 positive, will consider to remove Pacemaker and AICD Will need weekly cbc, cmp, cpk, esr (2) Toe ulcer due to DM: Acute on chronic left foot diabetic toe ulcer Possible leading to infection/gram-positive bacteremia, recurrent fever Podiatry on board no need for I&D, mentioned continue to IV antibiotics, outpatient follow-up with podiatry in 1-[address] of left foot shows no evidence of osteomyelitis (3) Complication of intravenous catheter site: Symptom has improved after warm compression Developed redness , pain and swelling at rt hand IV site Mostly due to infiltration USG of rt arm shows superficial venous thrombosis continue symptomatic management Clinically improved (4) Pleural effusion: CT chest showed small left and moderate right pleural effusions. CT abd/chest showed Fluid overload manifested by bilateral pleural effusions with moderate body wall edema and trace abdominal pelvic ascites. S/P thoracentesis where 1.3L pleural fluid removed Pulmonology consulted Clinically improved significantly Stable (5) Acute systolic CHF (congestive heart failure), NYHA class 3: History of ischemic cardiomyopathy with combined systolic and diastolic heart failure, Presented with decompensated CHF with weight gain, dyspnea on exertion, orthopnea Lasix/sulfa allergies S/P thoracentesis done Cardiology on board Appreciate input, diuretics kept on hold secondary to worsening of renal failure ECHO showed no wall motion abnormality, EF 55-60 % Entresto was discontinued since ECHO showed preserve EF Continue carvedilol BID Continue fluid restriction 1.5 L Recommend that patient be discharged w/ Ederin 25 mg po BID PRN > 5 lb wt gain or progressive LE swelling. Follow up with outpatient CHF clinic (6) Hypotension: BP stable Continue coreg (7) Hyponatremia: Stable Continue monitor BMP (8) BLANCA (acute kidney injury): (9) Stage III chronic kidney disease: Mostly related to diuretic and Entresto Received IVF Continue Ethacrynic prn appreciate input from Nephrology (10) DM type 2 (diabetes mellitus, type 2): Insulin sliding scale Monitor BS (11) CAD (coronary artery disease): no complain of angina Elevated troponin due to CHF decompensated with biventricular failure EKG showed no ischemic changes Troponin tending down On plavix, aspirin and carvedilol Stable (12) Ischemic cardiomyopathy: Severe ischemic cardiomyopathy with biventricular failure Status post AICD placement Echo shows improved/preserved ejection fraction, Entresto discontinued (13) GERD (gastroesophageal reflux disease): Continue PPI (14) DVT prophylaxis: SubQ heparin (15) Sepsis: Sepsis, not present on admission Patient developed fever tachycardia hypotension Possible source of infection infected left second toe, wound culture ordered Blood culture positive for gram-positive bacteremia ID on board Continue with IV daptomycin CT of right foot shows no evidence of osteomyelitis (16) Discharge planning issues: Discharge today to [facility] to complete course of IV Dapto Subjective Pt was seen and examined Lying in bed with no distress Pt said that she feels fine Denies any chest pain, palpitation, dizziness and SOB Physical Exam 2 Vital Signs (Past 24 Hours): Last Vital Signs Temp 36.8 C 03/29/18 13:10 Pulse 74 03/29/18 13:10 Resp 18 03/29/18 13:10 BP 124/74 03/29/18 13:10 Pulse Ox 100 03/29/18 13:10 Physical Exam: General- No acute distress Head- atraumatic Eyes- PERRL, EOMI, ENT- oropharynx clear Neck- supple, no JVD Lungs- Diminish breath sound Heart- regular rhythm; no murmur Abdomen- normal bowel sounds, soft Extremities- no calf tenderness, +edema Neuro- alert, oriented x 3; PERRL, EOMI; no facial palsy; no dysarthria Skin- warm & dry _ (1) DM type 2 (diabetes mellitus, type 2) Chronic kidney disease stage: stage 3 (moderate) Diabetes mellitus complication detail: with chronic kidney disease Diabetes mellitus complication status: with kidney complications Diabetes mellitus medical terminologist insulin use: unspecified medical terminologist insulin use status Diabetes mellitus macular edema: Diabetic retinopathy severity: Laterality: Proliferative retinopathy type: Qualified Code(s): E11.22 - Type 2 diabetes mellitus with diabetic chronic kidney disease; N18.3 - Chronic kidney disease, stage 3 ( moderate) (2) CAD (coronary artery disease) Associated angina: without angina Coronary Disease-Associated Artery/Lesion type: [place] artery [place] vs. transplanted heart: [place] heart Qualified Code (s): I25.10 - Atherosclerotic heart disease of [place] coronary artery without angina pectoris (3) Sepsis Sepsis type: methicillin resistant Staphylococcus aureus Qualified Code(s): A41.02 - Sepsis due to Methicillin resistant Staphylococcus aureus (4) Toe ulcer due to DM Diabetes mellitus type: type 2 Laterality: left Non-pressure ulcer stage: limited to breakdown of skin Qualified Code(s): E11.621 - Type 2 diabetes mellitus with foot ulcer; L97.521 - Non-pressure chronic ulcer of other part of left foot limited to breakdown of skin (5) GERD (gastroesophageal reflux disease) Esophagitis presence: esophagitis presence not specified Qualified Code(s): K21.9 - Gastro-esophageal reflux disease without esophagitis (6) Hypotension Hypotension type: unspecified hypotension type Trimester: Qualified Code(s) : I95.9 - Hypotension, unspecified
--- NOTE | 2018-03-31 23:18 | Discharge Summary ---
Date of Service March 31, 2018 Admission HPI Per Admitting Provider CHIEF COMPLAINT: Shortness of breath. HISTORY OF PRESENT ILLNESS: A 67-year-old female with past medical history significant for ischemic cardiomyopathy, EF of around 25% to 30%, status post ICD, hyperlipidemia, GERD, systolic and diastolic heart failure, history of BLANCA and hyperkalemia in the recent past, history of falls, hypothyroidism, diabetes, diabetic neuropathy, hypertension, chronic kidney disease stage III, depression, obesity, diabetic foot ulcers, who was brought in with shortness of breath. The patient was recently in the hospital for altered mental status, found to have BLANCA and hyperkalemia, seen by nephrology. Her Aldactone and ELADIO inhibitors were held and she improved and was discharged to [facility]. Her lisinopril and Aldactone were stopped at discharge. Her hydrochlorothiazide was increased to 25 mg p.o. b.i.d. and she was treated with Keflex for diabetic foot ulcers. She was seen by Dr. Donald at that time and if did not improve plan to follow as outpatient. The patient was discharged from [facility] and as her house was very cold, she went to stay with her sister. Since October, she is living mostly with her sister,. As per sister, she is getting more short of breath. Walking short distances has been making her more short of breath and patient could not lie down flat and she thought she could not take care of her. She came to the ER yesterday. Workup was okay and she was sent back, but after going home, she was again having shortness of breath, so she came back. A CAT scan was done which showed bilateral pleural effusion, right greater than left, and also some pulmonary congestion and we were called for admission. The patient is saturating okay. Vitals are stable, but she says she gained about 30-40 pounds in the last 3-4 months, poor ambulation, walks with a walker and sister says she cannot take care of her and patient cannot live alone and social service also found a placement in [facility] when she gets discharged from here. Patient has severe allergy to Lasix, she cannot take Lasix. She was placed on Aldactone and ethacrynic acid, but she said the ethacrynic acid was stopped because she was having nausea from it. Also Aldactone was stopped last admission because of hyperkalemia. Now she is on HCTZ 25 mg p.o. b.i.d., Denies any chest pain. She always has some cough. No fever. Has chronic migraines. No blurred visions. No difficulty swallowing. Appetite is not that great, but she is is noncompliant with the diet restrictions. No chest pain, no nausea, no abdominal pain. Normal bowel and bladder movements. She has incontinence of urine when she coughs. Has chronic lower extremity edema. Admission Exam Per Admitting Provider GENERAL: The patient is obese, not in acute distress. VITAL SIGNS: Temperature 36.7, pulse 109, respiratory rate 20, blood pressure 140/77, oxygen 99% on 3 liters. HEENT: No pallor, no icterus. Pupils equal, round, reactive to light. NECK: No JVD, no neck masses, no carotid bruit. CARDIOVASCULAR: S1, S2 heard, regular rate and rhythm, no murmur, no gallop. RESPIRATORY SYSTEM: Clear to auscultation bilaterally. Bibasilar crackles present. No wheezing. ABDOMEN: Soft, bowel sounds present. Nontender. No distention. CENTRAL NERVOUS SYSTEM: Cranial nerves II-XII grossly intact. Nonfocal. EXTREMITIES: Lower extremity edema present, no erythema seen. Diabetic toe ulcers Principal Diagnosis Gram-positive bacteremia Toe ulcer due to DM Pleural effusion Acute systolic CHF (congestive heart failure) NYHA class 3 Discharge Exam General- No acute distress Head- atraumatic Eyes- PERRL, EOMI, ENT- oropharynx clear Neck- supple, no JVD Lungs- Diminish breath sound Heart- regular rhythm; no murmur Abdomen- normal bowel sounds, soft Extremities- no calf tenderness, +edema Neuro- alert, oriented x 3; PERRL, EOMI; no facial palsy; no dysarthria Skin- warm & dry Discharge Data Allergies Allergy/AdvReac Type Severity Reaction Status Date / Time clindamycin Allergy Severe RASH, Verified 03/11/18 18:13 DELUSIONAL, CONVULSIONS Egg Derived Allergy Severe ANAPHYLAXIS Verified 03/11/18 18:13 furosemide Allergy Severe ANAPHYLAXIS Verified 03/11/18 18:13 rosuvastatin Allergy Severe LEG Unverified 03/11/18 18:13 WEAKNESS simvastatin Allergy Severe LEG Unverified 03/11/18 18:13 WEAKNESS Bactrim Allergy Intermediate RASH Verified 04/13/17 16:00 sulfamethoxazole Allergy Intermediate RASH Verified 03/11/18 18:13 trimethoprim Allergy Intermediate RASH Verified 03/11/18 18:13 amoxicillin Allergy Unknown . Verified 03/11/18 18:13 atorvastatin Allergy Unknown acute Verified 03/11/18 18:13 renal failure clavulanic acid Allergy Unknown . Verified 03/11/18 18:13 egg Allergy Unknown _ Verified 03/11/18 18:13 latex Allergy Unknown RASH Verified 03/11/18 18:13 Penicillins Allergy Unknown unknown Verified 03/11/18 18:13 triamcinolone Allergy Unknown RASH Verified 03/11/18 18:13 nickel Allergy Redness of Verified 03/11/18 18:13 Skin capsaicin AdvReac Severe SKIN Verified 03/11/18 18:13 SLOTHED FROM HEEL diclofenac AdvReac Severe SKIN Verified 03/11/18 18:13 SLOTHED FROM HEEL Diclopak AdvReac Severe SKIN Verified 04/13/17 16:00 SLOTHED FROM HEEL isopropyl alcohol AdvReac Severe SKIN Verified 03/11/18 18:13 SLOTHED FROM HEEL propylene glycol AdvReac Severe SKIN Verified 03/11/18 18:13 SLOTHED FROM HEEL acetaminophen AdvReac Mild VOMITING Verified 03/11/18 18:13 Consultations 03/11/18 20:35 ED Decision to Admit Stat 03/11/18 22:38 Consult Case Management - Discharge Planning Routine 03/12/18 07:04 Consult Lung Nodule Program Routine 03/12/18 08:00 Consult Cardiology Routine Consult Orthopedic Surgery Routine 03/12/18 09:00 Consult Pulmonology Routine 03/17/18 07:39 Consult Nephrology Routine 03/23/18 14:19 Consult Infectious Diseases Routine 03/24/18 14:14 Consult Podiatry Routine Ordered Studies 03/11/18 18:57 CT abd pelvis IV con only Stat CT angio chest PE protocol Stat 03/11/18 22:38 US effusion-chest/mediastinum Routine 03/11/18 22:54 US gallbladder Routine 03/22/18 16:30 US venous doppler UE RT Routine 03/24/18 15:39 CT foot LT wo con Stat 03/25/18 10:05 US arterial duplex LE BI Stat Hospital Course (1) Gram-positive bacteremia: possible source Diabetic foot ulcer/infected left fourth toe blood culture X2 gram positive bacteremia /staph aureus and MRSA screen positive Repeat blood cx on 03/27 no growth for now ID on board recommended to continue current management Continue IV dapto to complete 6 weeks course ( will need an additional 2 weeks) Recent echo showed no evidence of endocarditis If blood cx on 03/27 positive, will consider to remove Pacemaker and AICD Will need weekly cbc, cmp, cpk, esr (2) Toe ulcer due to DM: Acute on chronic left foot diabetic toe ulcer Possible leading to infection/gram-positive bacteremia, recurrent fever Podiatry on board no need for I&D, mentioned continue to IV antibiotics, outpatient follow-up with podiatry in 1-[address] of left foot shows no evidence of osteomyelitis (3) Complication of intravenous catheter site: Symptom has improved after warm compression Developed redness , pain and swelling at rt hand IV site Mostly due to infiltration USG of rt arm shows superficial venous thrombosis continue symptomatic management Clinically improved (4) Pleural effusion: CT chest showed small left and moderate right pleural effusions. CT abd/chest showed Fluid overload manifested by bilateral pleural effusions with moderate body wall edema and trace abdominal pelvic ascites. S/P thoracentesis where 1.3L pleural fluid removed Pulmonology consulted Clinically improved significantly Stable (5) Acute systolic CHF (congestive heart failure), NYHA class 3: History of ischemic cardiomyopathy with combined systolic and diastolic heart failure, Presented with decompensated CHF with weight gain, dyspnea on exertion, orthopnea Lasix/sulfa allergies S/P thoracentesis done Cardiology on board Appreciate input, diuretics kept on hold secondary to worsening of renal failure ECHO showed no wall motion abnormality, EF 55-60 % Entresto was discontinued since ECHO showed preserve EF Continue carvedilol BID Continue fluid restriction 1.5 L Recommend that patient be discharged w/ Ederin 25 mg po BID PRN > 5 lb wt gain or progressive LE swelling. Follow up with outpatient CHF clinic (6) Hypotension: BP stable Continue coreg (7) Hyponatremia: Stable Continue monitor BMP (8) BLANCA (acute kidney injury): cr continued to worsen ordered for IVF cont to hold diuretics appreciate input from Nephrology (9) Stage III chronic kidney disease: Mostly related to diuretic and Entresto Received IVF Continue Ethacrynic prn appreciate input from Nephrology (10) DM type 2 (diabetes mellitus, type 2): Insulin sliding scale Monitor BS (11) CAD (coronary artery disease): no complain of angina Elevated troponin due to CHF decompensated with biventricular failure EKG showed no ischemic changes Troponin tending down On plavix, aspirin and carvedilol Stable (12) Ischemic cardiomyopathy: Severe ischemic cardiomyopathy with biventricular failure Status post AICD placement Echo shows improved/preserved ejection fraction, Entresto discontinued (13) GERD (gastroesophageal reflux disease): Continue PPI (14) DVT prophylaxis: SubQ heparin (15) Sepsis: Sepsis, not present on admission Patient developed fever tachycardia hypotension Possible source of infection infected left second toe, wound culture ordered Blood culture positive for gram-positive bacteremia ID on board Continue with IV daptomycin CT of right foot shows no evidence of osteomyelitis (16) Discharge planning issues: Discharge today to [facility] to complete course of IV Dapto Total Time Total Time Spent Total Time Spent (In Minutes): 35 minutes Total Time Includes: Examination of the Patient, Discharge Planning, Medication Reconciliation, Communication With Other Providers and Other Discharge Plan Discharge Items Patient Disposition: Transfer Inpatient Rehab Fac Reason For Visit: SOB Discharge Diagnosis: Gram-positive bacteremia, Toe ulcer due to DM, Pleural effusion, Acute systolic CHF (congestive heart failure), NYHA class 3 Discharge Goals: Decrease discomfort, Improve disease control, Improve function and Increase independence Activity: Resume your previous activity Non-emergency contact: Primary Care Provider Call non-emergency contact if: you have any medication questions and your temperature is above 101 Follow-up/Referrals: James Donald DO [Surgeon] - (Follow up for re-evaluation of the 2nd toe ulceration.) Renetta Hammonds PA-C [Physician] - 04/06/18 2:00 pm (Please follow up 1 week from hospital discharge. Please bring current medication list and weight log with you to the appointment!) Diet: Carb Consistent or DM2 Addtl Provider Instructions: Follow up with your primary care provider once discharge from rehab Follow up with podiatry in 1-2 weeks for your diabetic foot ulcer Follow up with the CHF clinic Complete course of antibiotic with Dapto Check weekly cbc, cmp, cpk, esr while on Dapto Continue Edecrin 25 mg po BID PRN > 5 lb wt gain or progressive LE swelling. Continue 1.5L fluid restriction daily Continue daily wound care Follow up on final blood culture Call 911 and go to the Emergency Room if: * You have tightness or pain in your chest that does not go away with rest or Nitroglycerin * You are very short of breath even with rest Call your doctor if any of the following symptoms or problems start or get worse: * Shortness of breath or difficulty breathing * Wake up at night short of breath * Chest pain * Cough * Swelling of your hands, fee, or legs * More fatigued or tired with your normal activity * Palpitations - sudden fast heart beats WEIGHT * Weigh yourself every morning after using the bathroom. * Use the same scale. * Wear the same amount of clothing. * Write your weight down on your chart. * Call your doctor if you gain more than 2-3 pounds in 1-2 days. MEDICATIONS * Use this discharge instruction sheet for instructions. * Take your medications at the time your doctor ordered. * Do not skip a dose of your medicines. * If you miss a dose of medicine, take as soon as possible, but DO NOT DOUBLE A DOSE. * Read your medicine information when you get home. * Know all of the side effects of your medicine. * Call your doctor's office if you have any side effects. * Be sure all of your doctors know what medicine and herbs you take (including cold, flu, and herbal medicine). * Pain Medicine: If you do not get relief from your pain, please call your doctor for help. Take the following with you to your follow-up doctor appointments: * Weight Chart * Medication List * List of questions Do not drink excessive alcohol, beer or wine. FOLLOW UP WITH [facility]-HEART FAILURE PROGRAM 1 WEEK FROM DISCHARGE. Prescriptions: New ethacrynic acid [Edecrin] 25 mg Tablet 25 mg PO BID PRN (Reason: > 5 lb wt gain or progress lower extremities edema ) Qty: 30 RF: 0 daptomycin 500 mg recon soln 450 mg IV DAILY Qty: 15 RF: 0 Continue tramadol 50 mg tablet 50 mg PO Q8H PRN (Reason: pain) RF: 0 carvedilol 6.25 mg tablet 6.25 mg PO BID RF: 0 venlafaxine 150 mg capsule,extended release 24hr 150 mg PO DAILY RF: 0 clopidogrel 75 mg tablet 75 mg PO DAILY RF: 0 aspirin [Aspir-81] 81 mg Tablet,Delayed Release (Dr/Ec) 81 mg PO DAILY RF: 0 econazole 1 % Cream 1 applic TOPICAL UD PRN (Reason: Rash) RF: 0 mirtazapine 30 mg Tablet 30 mg PO HS RF: 0 metformin 1,000 mg tablet 1,000 mg PO DAILY RF: 0 levothyroxine 150 mcg tablet 150 mcg PO DAILY RF: 0 pramipexole 0.25 mg tablet 0.75 mg PO HS RF: 0 ergocalciferol (vitamin D2) 50,000 unit Capsule 50,000 unit PO WK RF: 0 albuterol sulfate 90 mcg/actuation Hfa Aerosol Inhaler 2 puff INHALATION QID PRN (Reason: Shortness Of Breath Or Wheezing) RF: 0 [id number] [Multivitamin 50 Plus] Tablet 1 tab PO DAILY RF: 0 pregabalin [Lyrica] 150 mg Capsule 300 mg PO HS RF: 0 pregabalin [Lyrica] 150 mg Capsule 150 mg PO QAM RF: 0 saxagliptin 5 mg tablet 5 mg PO DAILY RF: 0 fluticasone-vilanterol 100-25 mcg/dose blister with device 1 puff Inhalation DAILY RF: 0 dulaglutide 0.75 mg/0.5 mL pen injector 0.75 mg subcut WK RF: 0 magnesium oxide 400 mg magnesium Tablet 400 mg PO BID RF: 0 oxybutynin chloride 5 mg tablet 5 mg PO BID RF: 0 Stand-Alone Forms: [facility] Discharge Orders: Discharge Order (Routine); Ordered 03/29/18 Ordered By: Jelly Murray Skilled Items Patient informed of condition?: Yes DNR: No Discharge Level of Care: Acute rehab Communicable Disease: No Discharge Prognosis: Stable Admission Data Admit Date/Time: 03/11/18 21:54 Attending Provider: Jelly Murray Admit Provider: Kole Gee Primary Care Provider: Swapnil Pearson Other Providers: Laquita Anand ; Jelly Murray ; Kole Gee ; Tavon Presley ; Wes Meza ; Eliazar Dubon ; Naif Schafer ; Royal Mayen JR ; Juancarlos Kirk ; Jada Salas ; Yolanda Higgins ; Daquan Mendez ; Daquan Bo ; Mitch Parada ; Soham Childers ; Ken Nick ; Renetta Hammonds ; Rowan Plummer ; James Donald ; Efren Guzmán ; Chai Lord ; Shady Conley ; Renetta Mcdaniels ; Frank Winter Service: Medical Other Interventions: Discharge Summary Assessment (RN) Last Done: 03/29/18 13:10 DC Date/Time DO NOT enter until pt leaves facility: 03/29/18 17:06
== END 2018-03-29 17:06 | DRG 291 ==
LOC: 2S 17:48 → ED 17:48 → SUATTDRO 21:54 → OBSVTOIN 22:07 → 2S 22:13 → 4E 03-22 16:34

== ENCOUNTER 2018-06-05 15:01 | Inpatient (IN) ==
[2018-06-05] MEDS ORDERED: SODIUM CHLORIDE 0.9% 1000ML 1,000 ML IV SCH (15:30)
[2018-06-05] MEDS ORDERED: SODIUM CHLORIDE 0.9% 500 ML IV SCH (15:30)
--- NOTE | 2018-06-05 15:47 | XRay Report ---
XR chest 1V portable CLINICAL HISTORY: weakness dyspnea COMPARISON STUDY: 05/23/2018 FINDINGS: Mild cardiomegaly. Implantable unipolar cardiac pacemaker/fibrillator. Prior median sternot merle. Moderate prominence of pulmonary vasculature. IMPRESSION: Congestive heart failure The above report was generated using voice recognition software. It may contain grammatical, syntax or spelling errors. Electronically signed by: John Shields M.D. 06/05/2018 3:46 PM
[2018-06-05 16:09] LABS: Mean Corpuscular Hgb Conc 30.5 g/dL (32-36)
[2018-06-05 16:13] LABS: BUN Creatinine Ratio 26.2 (10-20); Calcium 7.9 mg/dl (8.5-10.1); Creatinine Clr Calc Pharmacy 46.6 ml/min; Est GFR (African American) 43.7; Est GFR (Non-African American) 37.7; Magnesium 1.4 mg/dl (1.8-2.4); Potassium 3.2 mmol/L (3.5-5.1)
[2018-06-05 16:18] LABS: Hematocrit (blood only) 35.1 % (37-47); Hemoglobin 10.7 g/dL (12.0-16.0); RDW Coefficient of Variation 19.4 % (11.5-14.5); RDW Standard Deviation 52.3 fL (36.4-46.3); Red Blood Count 4.68 M/uL (4.2-5.4); White Blood Count 9.68 K/uL (4.8-10.8)
[2018-06-05 16:24] LABS: Albumin Globulin Ratio 0.9 (0.9-2); Globulin 3.4 gm/dl (2.5-4.0); Total Protein 6.4 gm/dl (6.4-8.2)
[2018-06-05 16:37] LABS: T4 Free Thyroxine 1.28 ng/dl (0.8-1.6)
[2018-06-05 16:45] LABS: Platelet Count 90 K/uL (130-400)
[2018-06-05 16:46] LABS: Basophils # (auto) 0.02 K/uL (0-0.2); Basophils % (auto) 0.2 %; Eosinophils # (auto) 0.17 K/uL (0-0.5); Eosinophils % (auto) 1.8 %; Giant Platelets 1+; Hypochromasia Present; Immature Granulocytes # (auto) 0.03 K/uL (0.00-0.02); Immature Granulocytes % (auto) 0.3 %; Lymphocytes # (auto) 2.09 K/uL (1.2-3.4); Lymphocytes % (auto) 21.6 %; Monocytes # (auto) 0.91 K/uL (0.11-0.59); Monocytes % (auto) 9.4 %; Neutrophils # (auto) 6.46 K/uL (1.4-6.5); Neutrophils % (auto) 66.7 %; Ovalocytes 1+; Platelet Estimate Decreased (Normal)
[2018-06-05] MEDS ORDERED: POTASSIUM CHLORIDE / WTR 10 MEQ/100 ML PLCT IV ONE (18:04)
[2018-06-05] MEDS ORDERED: MAGNESIUM SULFATE / D5W 1 GM/100 ML BAG IV ONE (18:04)
[2018-06-05] MEDS ORDERED: POTASSIUM CHLORIDE 20 MEQ TABCR PO STA (19:31)
[2018-06-05] MEDS ORDERED: ONDANSETRON INJ 2 MG/ML 2 ML VIAL IV PRN (20:37)
[2018-06-05] MEDS ORDERED: MAGNESIUM HYDROXIDE SUSP 30 ML UDC PO PRN ×2 (20:37)
[2018-06-05] MEDS ORDERED: ACETAMINOPHEN 325 MG TAB PO PRN (20:37)
[2018-06-05] MEDS ORDERED: BISACODYL 10 MG SUPP PR PRN (20:37)
[2018-06-05] MEDS ORDERED: GLUCAGON FOR INJ 1 MG VIAL SQ PRN (20:37)
[2018-06-05] MEDS ORDERED: ECONAZOLE NITRATE 1% CRM 15 GM TUBE TOP PRN (20:37)
[2018-06-05] MEDS ORDERED: ALBUTEROL HFA 8 GM INHALER INH PRN (20:37)
[2018-06-05] MEDS ORDERED: GLUCOSE 10 TABS/TUBE PO PRN ×2 (20:37→21:45)
[2018-06-05] MEDS ORDERED: TRAMADOL HCL 50 MG TABLET PO PRN (20:37)
[2018-06-05] MEDS ORDERED: CARBOHYDRATES FOR HYPOGLYCEMIA PO PRN ×2 (20:37→21:45)
[2018-06-05] MEDS ORDERED: DEXTROSE 50% 50 ML SYRINGE IV PRN ×2 (20:37→21:45)
[2018-06-05] MEDS ORDERED: GLUCOSE 40% GEL 15 GM TUBE PO PRN ×2 (20:37→21:45)
--- NOTE | 2018-06-05 20:39 | History & Physical Report ---
Date of Service June 05, 2018 Assessment & Plan (1) Dehydration: (2) Acute kidney injury superimposed on CKD: -Admit to telemetry -Patient sent to the ED by outpatient wound clinic for evaluation of hypotension -In the ED, patient found to have creatinine of 1.4, which is up from 1.1 on 04/29 6 however it appears patient's baseline runs in the low 1's -Likely prerenal nature secondary to poor p.o. intake secondary to nausea from the Levaquin -IVF and hold diuretics; monitor volume status closely secondary to history of ischemic cardiomyopathy (3) Hypokalemia: (4) Hypomagnesemia: -K+ 3.2, MG +1.4 -Replace, follow electrolytes (5) Paroxysmal atrial fibrillation: -Rate controlled on carvedilol, will continue -Anticoagulated on Eliquis, will continue (6) AICD (automatic cardioverter/defibrillator) present: (7) Ischemic cardiomyopathy: (8) CAD (coronary artery disease): -All appear stable, no reports chest pain and patient appears mildly hypovolemic -EF 25% -Holding diuretics as above -Continue beta-angela (9) DM type 2 (diabetes mellitus, type 2): -Holding home oral agents and Trulicity -Pharmacy consult for glycemic management (10) Toe ulcer due to DM: -Was seen in the outpatient wound center today who reported that patient's wound is healed, no need for further antibiotics (11) Depression: -Continue venlafaxine and Lyrica (12) Hypothyroid: -Continue levothyroxine (13) KAVIN on CPAP: -CPAP as per home settings (14) DVT prophylaxis: -Anticoagulated on Eliquis History of Present Illness Chief Complaint: Sent by wound care office for hypotension Primary Care Provider: Swapnil Pearson 67-year-old female who was sent to the ED today by outpatient wound clinic for evaluation of hypotension. Patient has been following with the wound center for a wound on her left second toe. Most recent cultures grew Pseudomonas and patient was placed on oral Levaquin. Patient reports that since starting the wet Levaquin, it has caused her to have a poor appetite and some nausea. Today while at the wound center for a routine checkup, she was found to be hypotensive and therefore sent to the ED for further evaluation. Patient reports over the past few days she has felt generally weak and overall not well. She reports falling 3 times 4 days ago. These falls appear to be mechanical in nature, no associated syncope or head trauma. Patient denies abdominal pain, vomiting, diarrhea. She denies chest pain shortness of breath. No lightheadedness, dizziness, diaphoresis, syncopal events. No fevers or chills. She denies any urinary symptoms.In the ED, patient was hypotensive at 89/56 which improved with IVF. She also has a mild hypokalemia and BLANCA. In addition to the IVF, she was also given potassium and magnesium replacement. Allergies Allergy/AdvReac Type Severity Reaction Status Date / Time clindamycin Allergy Severe RASH, Verified 06/05/18 14:08 DELUSIONAL, CONVULSIONS Egg Derived Allergy Severe ANAPHYLAXIS Verified 06/05/18 14:08 furosemide Allergy Severe ANAPHYLAXIS Verified 06/05/18 14:08 rosuvastatin Allergy Severe LEG Unverified 06/05/18 14:08 WEAKNESS simvastatin Allergy Severe LEG Unverified 06/05/18 14:08 WEAKNESS Bactrim Allergy Intermediate RASH Verified 04/13/17 16:00 sulfamethoxazole Allergy Intermediate RASH Verified 06/05/18 14:08 trimethoprim Allergy Intermediate RASH Verified 06/05/18 14:08 amoxicillin Allergy Unknown . Verified 06/05/18 14:08 atorvastatin Allergy Unknown acute Verified 06/05/18 14:08 renal failure clavulanic acid Allergy Unknown . Verified 06/05/18 14:08 egg Allergy Unknown _ Verified 06/05/18 14:08 latex Allergy Unknown RASH Verified 06/05/18 14:08 Penicillins Allergy Unknown unknown Verified 06/05/18 14:08 triamcinolone Allergy Unknown RASH Verified 06/05/18 14:08 nickel Allergy Redness of Verified 06/05/18 14:08 Skin capsaicin AdvReac Severe SKIN Verified 06/05/18 14:08 SLOTHED FROM HEEL diclofenac AdvReac Severe SKIN Verified 06/05/18 14:08 SLOTHED FROM HEEL Diclopak AdvReac Severe SKIN Verified 04/13/17 16:00 SLOTHED FROM HEEL isopropyl alcohol AdvReac Severe SKIN Verified 06/05/18 14:08 SLOTHED FROM HEEL propylene glycol AdvReac Severe SKIN Verified 06/05/18 14:08 SLOTHED FROM HEEL acetaminophen AdvReac Mild VOMITING Verified 06/05/18 14:08 Home Medications Home Medications Medication Instructions Recorded Confirmed Type albuterol sulfate 2 puff INHALATION Q6H PRN 06/05/18 06/05/18 History amino ac-hydroly collagen-whey 30 ml PO DAILY 06/05/18 06/05/18 History [LPS Neutral Flavor] apixaban [Eliquis] 5 mg PO BID 06/05/18 06/05/18 History bisacodyl [Dulcolax (bisacodyl)] 10 mg [place] DAILY PRN 06/05/18 06/05/18 History calcium citrate 400 mg PO BID 06/05/18 06/05/18 History carvedilol 06/05/18 History carvedilol [Coreg] 6.25 mg PO BID 06/05/18 06/05/18 History dulaglutide [Trulicity] 1 dose SUBCUT WK 06/05/18 06/05/18 History econazole 1 applic TOPICAL DAILY PRN 06/05/18 06/05/18 History ergocalciferol (vitamin D2) 50,000 unit PO WK 06/05/18 06/05/18 History ethacrynic acid 50 mg PO BID 06/05/18 06/05/18 History lactobacillus combination no.4 3,000 mmu cells PO BID 06/05/18 06/05/18 History [Probiotic] levofloxacin [Levaquin] 750 mg PO DAILY 06/05/18 06/05/18 History levothyroxine 150 mcg PO DAILY 06/05/18 06/05/18 History magnesium chloride [Slow-Mag] 2 tab PO QID 06/05/18 06/05/18 History magnesium hydroxide [Milk of 30 ml PO UD PRN 06/05/18 06/05/18 History Magnesia] metolazone 2.5 mg PO DAILY PRN 06/05/18 06/05/18 History mirtazapine 30 mg PO HS 06/05/18 06/05/18 History multivitamin 1 tab PO DAILY 06/05/18 06/05/18 History ondansetron HCl [Zofran] 4 mg PO QID PRN 06/05/18 06/05/18 History oxybutynin chloride 5 mg PO BID 06/05/18 06/05/18 History potassium chloride 20 meq PO BID 06/05/18 06/05/18 History pramipexole 1.5 tab PO HS 06/05/18 06/05/18 History pregabalin [Lyrica] 150 mg PO DAILY 06/05/18 06/05/18 History pregabalin [Lyrica] 300 mg PO HS 06/05/18 06/05/18 History saxagliptin [Onglyza] 5 mg PO DAILY 06/05/18 06/05/18 History sodium phosphates [Fleet Enema] 118 ml [place] DAILY PRN 06/05/18 06/05/18 History tramadol [Ultram] 50 mg PO Q8 PRN 06/05/18 06/05/18 History venlafaxine 150 mg PO DAILY 06/05/18 06/05/18 History Past Med/Surg History Medical History Paroxysmal atrial fibrillation (Chronic) History of hysterectomy (Chronic) Thrombophlebitis arm (Resolved) Staphylococcus aureus septicemia (Resolved) 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) Pleural effusion (Resolved) Toe ulcer due to DM (Resolved) 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) Depression (Chronic) Stage III chronic kidney disease (Chronic) DM type 2 (diabetes mellitus, type 2) (Chronic) Neuropathy (Chronic) Hypothyroid (Chronic) CAD (coronary artery disease) (Chronic) Ischemic cardiomyopathy (Chronic) Hyperlipidemia (Chronic) GERD (gastroesophageal reflux disease) (Chronic) KAVIN on CPAP (Chronic) Surgical History H/O Achilles tendon repair (Chronic) AICD (automatic cardioverter/defibrillator) present (Chronic) S/P rotator cuff repair (Chronic) S/P CABG x 4 (Chronic) Family History Father Heart attack Social History Preferred Language: Latvian Beliefs That Will Affect Care: None and Yarsanism Current Living Situation: Skilled Nursing Other Information That Helps Us Care for You: No Feels Safe at Home: Yes Smoking Status: Former smoker Hx Alcohol Use: No (quit drinking in 1987) Hx Substance Use: No Review of Systems ROS per HPI, all other systems reviewed and negative Physical Exam Vital Signs (Past 24 Hours): Last Vital Signs Temp 36.6 C 06/05/18 15:11 Pulse 87 06/05/18 19:30 Resp 20 06/05/18 19:30 BP 120/89 06/05/18 19:30 Pulse Ox 97 06/05/18 19:30 Constitutional: WD/WN, vitals as above + obese Eyes: PERRL, conjunctivae normal, anicteric sclerae ENMT: Ears: no external ear abnormality Nose: no external nose abnormality Mouth: + dry oral mucous membranes Respiratory: normal respiratory effort, lungs clear to auscultation Cardiovascular: Rate/Rhythm: regular rate and regular rhythm Vessels: normal peripheral pulses Extremities: no edema Gastrointestinal (Abdomen): normal bowel sounds, soft, nontender, no hepatosplenomegaly Musculoskeletal: no cyanosis or clubbing, extremities motor strength 5/5 Skin: no rashes, warm and dry Chronic, mild erythema noted to the bilateral lower extremities; dressing in place, dry, and intact to left second toe Neurologic: PERRL, EOMI, accommodation nl, no face palsy, no dysarthria Psychiatric: A+Ox3, euthymic affect Results & Data Laboratory Results Laboratory Last Values WBC 9.68 K/uL (4.8-10.8) 06/05/18 15:31 RBC 4.68 M/uL (4.2-5.4) 06/05/18 15:31 Hgb 10.7 g/dL (12.0-16.0) L 06/05/18 15:31 Hct 35.1 % (37-47) L 06/05/18 15:31 MCV 75.0 fL (80-100) L 06/05/18 15:31 MCH 22.9 pg (25-34) L 06/05/18 15:31 MCHC 30.5 g/dL (32-36) L 06/05/18 15:31 RDW Std Deviation 52.3 fL (36.4-46.3) H 06/05/18 15:31 RDW Coeff of [place] 19.4 % (11.5-14.5) H 06/05/18 15:31 Plt Count 90 K/uL (130-400) L 06/05/18 15:31 Immature Gran % (Auto) 0.3 % 06/05/18 15:31 Neut % (Auto) 66.7 % 06/05/18 15:31 Lymph % (Auto) 21.6 % 06/05/18 15:31 [place] % (Auto) 9.4 % 06/05/18 15:31 Eos % (Auto) 1.8 % 06/05/18 15:31 Baso % (Auto) 0.2 % 06/05/18 15:31 Immature Gran # (Auto) 0.03 K/uL (0.00-0.02) H 06/05/18 15:31 Neut # (Auto) 6.46 K/uL (1.4-6.5) 06/05/18 15:31 Lymph # (Auto) 2.09 K/uL (1.2-3.4) 06/05/18 15:31 [place] # (Auto) 0.91 K/uL (0.11-0.59) H 06/05/18 15:31 Eos # (Auto) 0.17 K/uL (0-0.5) 06/05/18 15:31 Baso # (Auto) 0.02 K/uL (0-0.2) 06/05/18 15:31 Platelet Estimate Decreased (Normal) 06/05/18 15:31 Giant Platelets 1+ 06/05/18 15:31 Hypochromasia Present 06/05/18 15:31 Ovalocytes 1+ 06/05/18 15:31 Sodium 142 mmol/L (136-145) 06/05/18 15:31 Potassium 3.2 mmol/L (3.5-5.1) L 06/05/18 15:31 Chloride 103 mmol/L (98-107) 06/05/18 15:31 Carbon Dioxide 33 mmol/L (21-32) H 06/05/18 15:31 Anion Gap 7.0 (3-11) 06/05/18 15:31 BUN 38 mg/dl (7-18) H 06/05/18 15:31 Creatinine 1.45 mg/dl (0.6-1.2) H 06/05/18 15:31 Est Cr Clr Drug Dosing 46.6 ml/min 06/05/18 15:31 Est GFR ( Amer) 43.7 06/05/18 15:31 Est GFR (Non-Af Amer) 37.7 06/05/18 15:31 BUN/Creatinine Ratio 26.2 (10-20) H 06/05/18 15:31 Glucose 108 mg/dl (70-99) H 06/05/18 15:31 Calcium 7.9 mg/dl (8.5-10.1) L 06/05/18 15:31 Magnesium 1.4 mg/dl (1.8-2.4) L 06/05/18 15:31 Total Bilirubin 1.0 mg/dl (0.2-1) 06/05/18 15:31 AST 27 U/L (15-37) 06/05/18 15:31 ALT 121 U/L (12-78) H 06/05/18 15:31 Alkaline Phosphatase 161 U/L (45-117) H 06/05/18 15:31 Total Protein 6.4 gm/dl (6.4-8.2) 06/05/18 15:31 Albumin 3.0 gm/dl (3.4-5.0) L 06/05/18 15:31 Globulin 3.4 gm/dl (2.5-4.0) 06/05/18 15:31 Albumin/Globulin Ratio 0.9 (0.9-2) 06/05/18 15:31 TSH 5.420 uIu/ml (0.300-4.500) H 06/05/18 15:31 Free T4 1.28 ng/dl (0.8-1.6) 06/05/18 15:31 Diagnostic Findings CXR IMPRESSION: Congestive heart failure Code Status & VTE Plan VTE Prophylaxis Plan VTE Prophylaxis will be ordered: Yes Supervising Physician Co-Signing Physician Notes I saw this patient with the PHYSICAL THERAPIST AIDE, I participated in the history, physical, review of systems, and physical exam. I reviewed the medications with the patient and the Nurse Practioner and helped reconcile the medications. I helped take a detailed family and social history as well. I formulated the assessment and plan personally with the PHYSICAL THERAPIST AIDE went over it with the patient. Physical Exam Gen-AAO x 3, NAD, Afebrile Head-NCAT, EOMI, PERRLA, Anicteric Sclera, No Posterior Pharyngeal Erythema Neck-Supple, No JVD, No Thyromegaly, No Masses, No LAD, No Bruits Lungs-Clear to Auscultation Bilaterally, No Rales, No Rhonchi, No Wheezing, No Crepitus Chest-No S4, +S1, +S2, No S3, No Murmurs, No Rubs, No Gallops, No Ectopy Abdomen-Soft, Bowel Sounds Present, Non Tender, Non Distended, No Hepatomegaly, No Splenomegaly, No Palpable Masses, No Rebound, No Rigidity, No Guarding Musculoskeletal-Full Range of Motion Bilaterally, No CVAT Extremities-No Cyanosis, No Clubbing, No Edema Nuero-Cranial Nerves II-XII grossly intact, Motor WNL, DTRs WNL, Strength WNL, Non Focal Psych-Normal Mood (1) DM type 2 (diabetes mellitus, type 2) Chronic kidney disease stage: stage 3 (moderate) Diabetes mellitus complication detail: with chronic kidney disease Diabetes mellitus complication status: with kidney complications Diabetes mellitus exterminator insulin use: unspecified exterminator insulin use status Qualified Code(s): E11.22 - Type 2 diabetes mellitus with diabetic chronic kidney disease; N18.3 - Chronic kidney disease, stage 3 (moderate) (2) CAD (coronary artery disease) Associated angina: without angina Coronary Disease-Associated Artery/Lesion type: [place] artery [place] vs. transplanted heart: unga heart Qualified Code(s): I25.10 - Atherosclerotic heart disease of unga coronary artery without angina pectoris (3) Toe ulcer due to DM Diabetes mellitus type: type 2 Laterality: left Non-pressure ulcer stage: limited to breakdown of skin Qualified Code(s): E11.621 - Type 2 diabetes mellitus with foot ulcer; L97.521 - Non-pressure chronic ulcer of other part of left foot limited to breakdown of skin
[2018-06-05] MEDS ORDERED: PHARMACY GLYCEMIC MGMT CONSULT PRN (20:41)
[2018-06-05] MEDS: SODIUM CHLORIDE 0.9% 1000ML 1,000 ML IV SCH (20:53)
[2018-06-05] MEDS ORDERED: NON-FORMULARY MEDICATION (Lactobacillus Combination No.4 [Probiotic] 3,000 mmu cells) PO SCH (21:00)
[2018-06-05] MEDS ORDERED: MAGNESIUM CHLORIDE 64MG DELAYED REL TAB PO SCH (21:00)
[2018-06-05] MEDS ORDERED: INSULIN GLARGINE SOLOSTAR 100 UNITS/ML 3 ML PEN SC ONE (21:30)
[2018-06-05] MEDS ORDERED: GLUCAGON FOR INJ 1 MG VIAL IM PRN (21:45)
[2018-06-05] MEDS: OXYBUTYNIN CHLORIDE 5 MG TAB PO SCH (21:53)
[2018-06-05] MEDS: PREGABALIN 100 MG CAP PO SCH (21:53)
[2018-06-05] MEDS: MAGNESIUM OXIDE 400 MG TAB PO SCH (21:54)
[2018-06-05] MEDS: MIRTAZAPINE TAB 15 MG TAB PO SCH (21:54)
[2018-06-05] MEDS: CARVEDILOL 6.25 MG TAB PO SCH (21:54)
[2018-06-05] MEDS: PRAMIPEXOLE DIHYDROCHLO 0.5 MG TAB PO SCH (21:55)
[2018-06-05] MEDS: CALCIUM CARBONATE 1250MG TAB PO SCH (21:55)
--- NOTE | 2018-06-05 23:33 | Emergency Department Note ---
Entered by Rowan Morin acting as a scribe for ED Provider Note CHIEF COMPLAINT: Hypotension HISTORY OF PRESENT ILLNESS: The patient was referred here from the wound clinic for hypotension and were concerned for hospital dehydration The patient is a 67 year old female who presents to the Emergency Room with complaints of episode of hypotension that started prior to arrival. The patient reports she was at the wound clinic for a bad toe and got referred here. She notes she fell before by trying to kick a towel and tripped. The patient states she also fell another time where she lost her balance going to the bathroom. She notes she lost 30 pounds since starting diarrhetic. The patient reports she has history of diabetes and has a pacemaker. She reports she feels constipated. Pt denies LOC, headache, fevers, chills, diaphoresis, visual changes, neck pain, chest pain, breathing difficulties, nausea, vomiting, abdominal pain, back pain, melena, hematochezia, urinary symptoms, numbness, weakness, lymphadenopathy, rash, or other complaints. REVIEW OF SYSTEMS: See HPI for pertinent positives and negatives. A total of ten systems were reviewed and were otherwise negative. PMHx/PSHx: Sepsis Thrombophlebitis arm Gram-positive bacteria Hypotension Acute kidney injury Hyponatremia Diabetes SOCIAL HISTORY: Patient lives at home. PHYSICAL EXAM: GENERAL: Awake, alert, well-appearing, in no distress HENT: Normocephalic, atraumatic. Dry mucus membranes. EYES: Normal conjunctiva. Sclera non-icteric. NECK: Inspection normal. Non-tender. Supple. No nuchal rigidity. FROM. No mas ses. RESPIRATORY: Clear to auscultation. No wheezes. No rales. Normal respiratory effort. CARDIAC: Normal rate. Normal rhythm. No murmurs. No rubs. Extremities warm and well perfused. Pulses equal. No JVD. GI: Soft, non-distended. No tenderness to palpation. No rebound or guarding. No masses. RECTAL: Deferred. MUSCULOSKELETAL: Atraumatic. Chest examination reveals no tenderness. The back is symmetrical on inspection without obvious abnormality. There is no CVA tenderness to palpation. No joint edema. LOWER EXTREMITIES: Calves are equal size bilaterally and non-tender. 1+ edema. No discoloration. NEURO: Normal sensorium. No sensory or motor deficits noted. SKIN: No rash or jaundice noted. EMERGENCY DEPARTMENT COURSE: 1513: Past medical records reviewed. The patient was evaluated in room D3A, and a complete history and physical examination were performed. 1804: I checked on the patient. 1809: I reviewed the patient's case with Charity Ken and Charity Chambers Hospitalist. They will evaluate the patient for further management. MEDICAL DECISION MAKING: Prior records/ancillary studies reviewed and summarized above. Nursing notes reviewed and agree them. The patient's history was concerning for low blood pressure and possible dehydration Differential diagnosis: Etiologies such as dehydration, metabolic, infection, hypo/hyperglycemia, electrolyte abnormalities, cardiac sources, intracerebral event, toxicologic, neurologic, as well as others were entertained. Physical examination: As above. ER treatment provided: IV Lock Normal saline hydration IV magnesium IV potassium On reassessment the patient felt better. Diagnostics interpretation by me: ECG: No acute change. The labs revealed mild anemia on CBC. Decreased platelet count noted. The patient has hypokalemia and hypomagnesemia. She had a mild increase of her creatinine concerning for dehydration. Slight increase of ALT noted as well. Imaging studies: Chest x-ray showed some mild pulmonary vascular congestion. Consultation: A consultation was placed with the hospitalist. The case was discussed and diagnostics were reviewed. The patient was evaluated in the ER for further treatment. IMPRESSION: Hypotension Dehydration Hypomagnesemia Hypokalemia Thrombocytopenia PLAN: Admit The scribe's documentation has been prepared under my direction and personally reviewed by me in its entirety. I confirm that the note above accurately reflects all work, treatment, procedures, and medical decision making performed by me. 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) Depression (Chronic) Stage III chronic kidney disease (Chronic) DM type 2 (diabetes mellitus, type 2) (Chronic) Neuropathy (Chronic) Hypothyroid (Chronic) CAD (coronary artery disease) (Chronic) Ischemic cardiomyopathy (Chronic) Hyperlipidemia (Chronic) GERD (gastroesophageal reflux disease) (Chronic) KAVIN on CPAP (Chronic) Surgical History H/O Achilles tendon repair (Chronic) AICD (automatic cardioverter/defibrillator) present (Chronic) S/P rotator cuff repair (Chronic) S/P CABG x 4 (Chronic) Family History Father Heart attack Social History Preferred Language: [place] Beliefs That Will Affect Care: None and Episcopal Current Living Situation: Skilled Nursing Other Information That Helps Us Care for You: No Feels Safe at Home: Yes Smoking Status: Former smoker Hx Alcohol Use: No (quit drinking in 1987) Hx Substance Use: No Results & Data Vital Signs Vital Signs - 24 hr 06/05/18 15:11 06/05/18 16:51 06/05/18 16:58 Temperature 36.6 C Temperature Source Oral Sepsis Recent Fever Within 48 Hours No Sepsis Action Taken by Nursing No Action Required Pulse Rate 90 86 87 Pulse Rate [Apical] Pulse Rate from SpO2 Sensor 87 87 Pulse Rhythm [Apical] Pulse Strength [Apical] Respiratory Rate 24 19 18 Respiratory Effort / Characteristics Non-Labored Respiratory Depth Normal Respiratory Pattern Blood Pressure 131/76 95/65 L Blood Pressure [Right Arm] Blood Pressure Mean 94 75 Blood Pressure Mean [Right Arm] Blood Pressure Position [Right Arm] Pulse Oximetry 97 98 97 Oxygen Delivery Method Room Air Room Air 06/05/18 17:00 06/05/18 17:07 06/05/18 17:10 Temperature Temperature Source Sepsis Recent Fever Within 48 Hours Sepsis Action Taken by Nursing Pulse Rate 90 106 H Pulse Rate [Apical] Pulse Rate from SpO2 Sensor 87 87 Pulse Rhythm [Apical] Pulse Strength [Apical] Respiratory Rate 20 18 Respiratory Effort / Characteristics Respiratory Depth Respiratory Pattern Blood Pressure Blood Pressure [Right Arm] Blood Pressure Mean Blood Pressure Mean [Right Arm] Blood Pressure Position [Right Arm] Pulse Oximetry 99 96 98 Oxygen Delivery Method Room Air 06/05/18 17:20 06/05/18 17:30 06/05/18 17:40 Temperature Temperature Source Sepsis Recent Fever Within 48 Hours Sepsis Action Taken by Nursing Pulse Rate 87 86 86 Pulse Rate [Apical] Pulse Rate from SpO2 Sensor 89 84 86 Pulse Rhythm [Apical] Pulse Strength [Apical] Respiratory Rate 24 20 19 Respiratory Effort / Characteristics Respiratory Depth Respiratory Pattern Blood Pressure Blood Pressure [Right Arm] Blood Pressure Mean Blood Pressure Mean [Right Arm] Blood Pressure Position [Right Arm] Pulse Oximetry 98 97 95 Oxygen Delivery Method 06/05/18 17:50 06/05/18 18:00 06/05/18 18:08 Temperature Temperature Source Sepsis Recent Fever Within 48 Hours Sepsis Action Taken by Nursing Pulse Rate 84 87 87 Pulse Rate [Apical] Pulse Rate from SpO2 Sensor 85 86 84 Pulse Rhythm [Apical] Pulse Strength [Apical] Respiratory Rate 18 25 H 24 Respiratory Effort / Characteristics Respiratory Depth Respiratory Pattern Blood Pressure 115/70 115/70 Blood Pressure [Right Arm] Blood Pressure Mean 85 85 Blood Pressure Mean [Right Arm] Blood Pressure Position [Right Arm] Pulse Oximetry 96 95 97 Oxygen Delivery Method 06/05/18 18:10 06/05/18 18:20 06/05/18 18:30 Temperature Temperature Source Sepsis Recent Fever Within 48 Hours Sepsis Action Taken by Nursing Pulse Rate 85 85 85 Pulse Rate [Apical] Pulse Rate from SpO2 Sensor 84 85 85 Pulse Rhythm [Apical] Pulse Strength [Apical] Respiratory Rate 21 21 18 Respiratory Effort / Characteristics Respiratory Depth Respiratory Pattern Blood Pressure 101/69 Blood Pressure [Right Arm] Blood Pressure Mean 79 Blood Pressure Mean [Right Arm] Blood Pressure Position [Right Arm] Pulse Oximetry 97 98 100 Oxygen Delivery Method 06/05/18 18:31 06/05/18 18:40 06/05/18 19:30 Temperature Temperature Source Sepsis Recent Fever Within 48 Hours Sepsis Action Taken by Nursing Pulse Rate 83 85 Pulse Rate [Apical] 87 Pulse Rate from SpO2 Sensor 84 87 Pulse Rhythm [Apical] Regular Pulse Strength [Apical] Normal Respiratory Rate 24 15 20 Respiratory Effort / Characteristics Non-Labored Spontaneous Respiratory Depth Normal Respiratory Pattern Regular Blood Pressure Blood Pressure [Right Arm] 120/89 Blood Pressure Mean Blood Pressure Mean [Right Arm] 99 Blood Pressure Position [Right Arm] Sitting Pulse Oximetry 99 98 97 Oxygen Delivery Method Room Air 06/05/18 20:36 06/05/18 21:16 06/05/18 23:07 Temperature 37 C 36.7 C Temperature Source Oral Oral Sepsis Recent Fever Within 48 Hours Sepsis Action Taken by Nursing Pulse Rate Pulse Rate [Apical] 86 84 Pulse Rate from SpO2 Sensor Pulse Rhythm [Apical] Pulse Strength [Apical] Normal Respiratory Rate 16 22 Respiratory Effort / Characteristics Non-Labored Spontaneous Non-Labored Spontaneous Respiratory Depth Normal Normal Respiratory Pattern Regular Regular Blood Pressure Blood Pressure [Right Arm] 116/75 109/77 Blood Pressure Mean Blood Pressure Mean [Right Arm] 88 87 Blood Pressure Position [Right Arm] Lying Lying Pulse Oximetry 98 96 Oxygen Delivery Method Room Air Room Air Room Air Home Medications Current Medication List: was personally reviewed by me Laboratory Data Attestation: I reviewed the patient's lab results. Result diagrams: 06/05/18 15:31 06/05/18 15:31 Lab Results 06/05/18 06/05/18 06/05/18 Range/Units 15:31 15:31 20:46 WBC 9.68 (4.8-10.8) K/uL RBC 4.68 (4.2-5.4) M/uL Hgb 10.7 L (12.0-16.0) g/dL Hct 35.1 L (37-47) % MCV 75.0 L (80-100) fL MCH 22.9 L (25-34) pg MCHC 30.5 L (32-36) g/dL RDW Std Deviation 52.3 H (36.4-46.3) fL RDW Coeff of Montrell 19.4 H (11.5-14.5) % Plt Count 90 L (130-400) K/uL Immature Gran % (Auto) 0.3 % Neut % (Auto) 66.7 % Lymph % (Auto) 21.6 % [place] % (Auto) 9.4 % Eos % (Auto) 1.8 % Baso % (Auto) 0.2 % Immature Gran # (Auto) 0.03 H (0.00-0.02) K/uL Neut # (Auto) 6.46 (1.4-6.5) K/uL Lymph # (Auto) 2.09 (1.2-3.4) K/uL [place] # (Auto) 0.91 H (0.11-0.59) K/uL Eos # (Auto) 0.17 (0-0.5) K/uL Baso # (Auto) 0.02 (0-0.2) K/uL Platelet Estimate Decreased (Normal) Giant Platelets 1+ Hypochromasia Present Ovalocytes 1+ Sodium 142 (136-145) mmol/L Potassium 3.2 L (3.5-5.1) mmol/L Chloride 103 (98-107) mmol/L Carbon Dioxide 33 H (21-32) mmol/L Anion Gap 7.0 (3-11) BUN 38 H (7-18) mg/dl Creatinine 1.45 H (0.6-1.2) mg/dl Est Cr Clr Drug Dosing 46.6 ml/min Est GFR ( Amer) 43.7 Est GFR (Non-Af Amer) 37.7 BUN/Creatinine Ratio 26.2 H (10-20) Glucose 108 H (70-99) mg/dl POC Glucose 120 H (70-99) Calcium 7.9 L (8.5-10.1) mg/dl Magnesium 1.4 L (1.8-2.4) mg/dl Total Bilirubin 1.0 (0.2-1) mg/dl AST 27 (15-37) U/L ALT 121 H (12-78) U/L Alkaline Phosphatase 161 H (45-117) U/L Total Protein 6.4 (6.4-8.2) gm/dl Albumin 3.0 L (3.4-5.0) gm/dl Globulin 3.4 (2.5-4.0) gm/dl Albumin/Globulin Ratio 0.9 (0.9-2) TSH 5.420 H (0.300-4.500) uIu/ml Free T4 1.28 (0.8-1.6) ng/dl Nasal Screen MRSA (PCR) (Negative) 06/05/18 Range/Units 21:00 WBC (4.8-10.8) K/uL RBC (4.2-5.4) M/uL Hgb (12.0-16.0) g/dL Hct (37-47) % MCV (80-100) fL MCH (25-34) pg MCHC (32-36) g/dL RDW Std Deviation (36.4-46.3) fL RDW Coeff of Montrell (11.5-14.5) % Plt Count (130-400) K/uL Immature Gran % (Auto) % Neut % (Auto) % Lymph % (Auto) % [place] % (Auto) % Eos % (Auto) % Baso % (Auto) % Immature Gran # (Auto) (0.00-0.02) K/uL Neut # (Auto) (1.4-6.5) K/uL Lymph # (Auto) (1.2-3.4) K/uL [place] # (Auto) (0.11-0.59) K/uL Eos # (Auto) (0-0.5) K/uL Baso # (Auto) (0-0.2) K/uL Platelet Estimate (Normal) Giant Platelets Hypochromasia Ovalocytes Sodium (136-145) mmol/L Potassium (3.5-5.1) mmol/L Chloride (98-107) mmol/L Carbon Dioxide (21-32) mmol/L Anion Gap (3-11) BUN (7-18) mg/dl Creatinine (0.6-1.2) mg/dl Est Cr Clr Drug Dosing ml/min Est GFR ( Amer) Est GFR (Non-Af Amer) BUN/Creatinine Ratio (10-20) Glucose (70-99) mg/dl POC Glucose (70-99) Calcium (8.5-10.1) mg/dl Magnesium (1.8-2.4) mg/dl Total Bilirubin (0.2-1) mg/dl AST (15-37) U/L ALT (12-78) U/L Alkaline Phosphatase (45-117) U/L Total Protein (6.4-8.2) gm/dl Albumin (3.4-5.0) gm/dl Globulin (2.5-4.0) gm/dl Albumin/Globulin Ratio (0.9-2) TSH (0.300-4.500) uIu/ml Free T4 (0.8-1.6) ng/dl Nasal Screen MRSA (PCR) Positive A (Negative) Administered Medications Calcium Carbonate (Os-Jarek 500) 1,250 mg PO BID MARITZA Stop: 07/05/18 20:59 Last Admin: 06/05/18 21:55 Dose: 1,250 mg Documented by: [id number] Carvedilol (Coreg) 6.25 mg PO BID MARITZA Stop: 07/05/18 20:59 Last Admin: 06/05/18 21:54 Dose: 6.25 mg Documented by: [id number] Sodium Chloride (Nss 1000ml) 1,000 mls @ 80 mls/hr IV .[id number] MARITZA Stop: 07/05/18 19:44 Last Admin: 06/05/18 20:53 Dose: 80 mls/hr Documented by: [id number] Magnesium Oxide (Mag-Ox) 400 mg PO BID MARITZA Stop: 07/05/18 20:59 Last Admin: 06/05/18 21:54 Dose: 400 mg Documented by: [id number] Mirtazapine (Remeron) 30 mg PO [facility] Stop: 07/05/18 20:59 Last Admin: 06/05/18 21:54 Dose: 30 mg Documented by: [id number] Oxybutynin Chloride (Ditropan) 5 mg PO BID MARITZA Stop: 07/05/18 20:59 Last Admin: 06/05/18 21:53 Dose: 5 mg Documented by: [id number] Pramipexole Dihydrochloride (Mirapex) 0.75 mg PO [facility] Stop: 07/05/18 20:59 Last Admin: 06/05/18 21:55 Dose: 0.75 mg Documented by: [id number] Pregabalin (Lyrica) 300 mg PO [facility] Stop: 07/05/18 20:59 Last Admin: 06/05/18 21:53 Dose: 300 mg Documented by: [id number] Discontinued Medications Sodium Chloride (Nss 1000ml) 1,000 mls @ 125 mls/hr IV .Q8H MARITZA Stop: 06/05/18 23:29 Last Infusion: 06/05/18 21:16 Dose: 0 mls/hr Documented by: [id number] Admin: 06/05/18 15:39 Dose: 125 mls/hr Documented by: [id number] Sodium Chloride (Nss) 500 mls @ 999 mls/hr IV .Q31M MARITZA Stop: 06/05/18 16:00 Last Infusion: 06/05/18 16:26 Dose: 0 mls/hr Documented by: [id number] Admin: 06/05/18 15:39 Dose: 999 mls/hr Documented by: [id number] Magnesium Sulfate/Dextrose (Magnesium Sulfate / D5w) 1 gm in 100 mls @ 100 mls/hr IV ONE ONE Stop: 06/05/18 19:03 Last Infusion: 06/05/18 21:09 Dose: 0 mls/hr Documented by: [id number] Admin: 06/05/18 18:19 Dose: 100 mls/hr Documented by: [id number] Potassium Chloride (K [place] / Wtr) 10 meq in 100 mls @ 100 mls/hr IV ONE ONE Stop: 06/05/18 19:03 Last Infusion: 06/05/18 21:09 Dose: 0 mls/hr Documented by: [id number] Admin: 06/05/18 18:19 Dose: 100 mls/hr Documented by: [id number] Insulin Glargine (Lantus Solostar Pen) 15 units SC NOW ONE Stop: 06/05/18 21:31 Last Admin: 06/05/18 22:19 Dose: 15 units Documented by: [id number] Cosigned by: [id number] Imaging Data Radiologist's Impression: Radiology results as stated below per my review and the radiologist's interpretation: XR chest 1V portable CLINICAL HISTORY: weakness dyspnea COMPARISON STUDY: 05/23/2018 FINDINGS: Mild cardiomegaly. Implantable unipolar cardiac pacemaker/fibrillator. Prior median sternotomy. Moderate prominence of pulmonary vasculature. IMPRESSION: Congestive heart failure The above report was generated using voice recognition software. It may contain grammatical, syntax or spelling errors. Electronically signed by: John Shields M.D. 06/05/2018 3:46 PM ECG Data Attestation: I personally reviewed and interpreted this ECG as follows: Indication: other (Hypotension) Rate (beats per minute): 91 Rhythm: sinus rhythm Findings: + other (Inferior and anterior septal Q waves), + 1st degree AV block, + nonspecific-ST abn, + PVC and + left axis deviation Blood Pressure Blood Pressure Findings: Low blood pressure Blood Pressure Disposition: further management by hospitalist Discharge Plan Visit Data *Final* Discharge Date/Time: 06/05/18 19:55 Chief Complaint: Hypotension Stated Complaint: dehydration ED Provider: Ken Verma Discharge Problem: Hypotension, Hypomagnesemia, Dehydration, Hypokalemia Patient Disposition: Admitted As Inpatient Discharge Instructions Interventions: ED Discharge Assessment Last Done: 06/05/18 19:55 The scribe's documentation has been prepared under my direction and personally reviewed by me in its entirety. I confirm that the note above accurately reflects all work, treatment, procedures, and medical decision making performed by me.
[2018-06-05] MEDS: APIXABAN 5 MG TABLET PO SCH (23:39)
[2018-06-05] MEDS: INSULIN ASPART 100 UNITS/ML 3 ML PEN SC SCH (23:57)
[2018-06-06 02:11] LABS: Appearance Urine Clear (Clear); Bilirubin Urine Negative (Negative); Blood Urine Negative (Negative); Color Urine Yellow; Glucose Urine UA Negative (Negative); Ketones Urine Negative (Negative); Leukocyte Esterase Urine Negative (Negative); Nitrite Urine Negative (Negative); Protein Urine Negative (Negative); Specific Gravity Urine 1.011 (1.000-1.030); Urobilinogen Urine Negative (Negative); pH Urine 6.5 (4.5-7.5)
[2018-06-06] MEDS: INSULIN ASPART 100 UNITS/ML 3 ML PEN SC SCH ×5 (04:10→20:44)
[2018-06-06] MEDS: LEVOTHYROXINE SODIUM 150 MCG TABLET PO SCH (06:29)
[2018-06-06 07:05] LABS: Albumin Level 2.6 gm/dl (3.4-5.0); BUN Creatinine Ratio 26.3 (10-20); Calcium 7.7 mg/dl (8.5-10.1); Creatinine Clr Calc Pharmacy 53.6 ml/min; Est GFR (African American) 51.3; Est GFR (Non-African American) 44.3; Magnesium 1.5 mg/dl (1.8-2.4); Potassium 3.6 mmol/L (3.5-5.1)
[2018-06-06 07:08] LABS: Albumin Globulin Ratio 0.8 (0.9-2); Globulin 3.2 gm/dl (2.5-4.0); Total Protein 5.8 gm/dl (6.4-8.2)
[2018-06-06 07:11] LABS: Hematocrit (blood only) 32.2 % (37-47); Hemoglobin 10.1 g/dL (12.0-16.0); Mean Corpuscular Hgb Conc 31.4 g/dL (32-36); Mean Corpuscular Volume 74.4 fL (80-100); Platelet Count 78 K/uL (130-400); RDW Standard Deviation 51.2 fL (36.4-46.3); Red Blood Count 4.33 M/uL (4.2-5.4); White Blood Count 7.22 K/uL (4.8-10.8)
[2018-06-06 07:12] LABS: Platelet Estimate Decreased (Normal)
[2018-06-06 07:25] LABS: Estimated Average Glucose 171 mg/dl; Hemoglobin A1C 7.6 % (4.5-5.6)
[2018-06-06] MEDS: MAGNESIUM OXIDE 400 MG TAB PO SCH ×3 (07:44→19:56)
[2018-06-06] MEDS: MULTIVITAMIN TAB PO SCH (07:44)
[2018-06-06] MEDS: CARVEDILOL 6.25 MG TAB PO SCH ×2 (07:45→19:59)
[2018-06-06] MEDS: OXYBUTYNIN CHLORIDE 5 MG TAB PO SCH ×2 (07:45→20:00)
[2018-06-06] MEDS: CALCIUM CARBONATE 1250MG TAB PO SCH ×2 (07:45→20:00)
[2018-06-06] MEDS: VENLAFAXINE HCL XR 150 MG CAPXR PO SCH (07:45)
[2018-06-06] MEDS: APIXABAN 5 MG TABLET PO SCH ×2 (07:45→19:55)
[2018-06-06] MEDS: SODIUM CHLORIDE 0.9% 1000ML 1,000 ML IV SCH (07:49)
[2018-06-06] MEDS: PREGABALIN 100 MG CAP PO SCH (07:49)
[2018-06-06] MEDS: PREGABALIN 75 MG CAP PO SCH (08:32)
[2018-06-06] MEDS ORDERED: ERGOCALCIFEROL 50,000 UNITS CAP PO SCH (09:00)
[2018-06-06] MEDS ORDERED: INSULIN GLARGINE SOLOSTAR 100 UNITS/ML 3 ML PEN SC SCH (09:00)
--- NOTE | 2018-06-06 11:14 | Hospitalist Progress Note ---
Date of Service June 06, 2018 Assessment & Plan (1) Acute kidney injury superimposed on CKD: (2) Dehydration: (3) Hypomagnesemia: (4) Hypokalemia: (5) DM type 2 (diabetes mellitus, type 2): (6) S/P CABG x 4: (7) Ischemic cardiomyopathy: Not at baselineline Cr and Mg still low, continue gentle IVFs, DC plan 1-2 days, be careful of volume c Hx CAD/CABG/I. Cmyopathy Subjective Feels a lot better than yesterday. ROS-No Headache, No Visual Changes, No Nausea, No Vomiting, No Fever, No Chills, No Neck Pain or Stiffness, No Chest Pain, No Palpitations, No SOB, No TARIQ, No Cough, No Sputum, No Wheezing, No Abdominal Pain, No Diarrhea, No Hematemesis, No Hemoptysis, No Unexpected Weight Loss, No Flank pain, No Melena, No Hematochezia, No Frequency, No Urgency, No Burning, No Hematuria, No Rashes, No Diaphoresis. Appetite is Normal Physical Exam Gen-AAO x 3, NAD, Afebrile Head-NCAT, EOMI, PERRLA, Anicteric Sclera, No Posterior Pharyngeal Erythema Neck-Supple, No JVD, No Thyromegaly, No Masses, No LAD, No Bruits Lungs-Clear to Auscultation Bilaterally, No Rales, No Rhonchi, No Wheezing, No Crepitus Chest-No S4, +S1, +S2, No S3, No Murmurs, No Rubs, No Gallops, No Ectopy Abdomen-Soft, Bowel Sounds Present, Non Tender, Non Distended, No Hepatomegaly, No Splenomegaly, No Palpable Masses, No Rebound, No Rigidity, No Guarding Musculoskeletal-Full Range of Motion Bilaterally, No CVAT Extremities-No Cyanosis, No Clubbing, No Edema Nuero-Cranial Nerves II-XII grossly intact, Motor WNL, DTRs WNL, Strength WNL, Non Focal Psych-Normal Mood Physical Exam Vital Signs (Past 24 Hours): Last Vital Signs Temp 36.5 C 06/06/18 07:33 Pulse 88 06/06/18 07:33 Resp 24 06/06/18 07:33 BP 106/63 06/06/18 07:33 Pulse Ox 97 06/06/18 07:33 Results & Data Laboratory Results Current Diagnoses Hypothyroidism, unspecified (06/05/18) Type 2 diabetes mellitus with diabetic chronic kidney disease (06/05/18) Type 2 diabetes mellitus with foot ulcer (06/05/18) Hypomagnesemia (06/05/18) Dehydration (06/05/18) Hypokalemia (06/05/18) Major depressive disorder, single episode, unspecified (06/05/18) Obstructive sleep apnea (adult) (pediatric) (06/05/18) Atherosclerotic heart disease of [place] coronary artery without angina pectoris (06/05/18) Ischemic cardiomyopathy (06/05/18) Paroxysmal atrial fibrillation (06/05/18) Non-pressure chronic ulcer of other part of left foot limited to breakdown of skin (06/05/18) Acute kidney failure, unspecified (06/05/18) Chronic kidney disease, stage 3 (moderate) (06/05/18) Chronic kidney disease, unspecified (06/05/18) Presence of automatic (implantable) cardiac defibrillator (06/05/18) Dependence on other enabling machines and devices (06/05/18) Allergies clindamycin Allergy (Severe, Verified 06/05/18 14:08) RASH, DELUSIONAL, CONVULSIONS Egg Derived Allergy (Severe, Verified 06/05/18 14:08) ANAPHYLAXIS furosemide Allergy (Severe, Verified 06/05/18 14:08) ANAPHYLAXIS rosuvastatin Allergy (Severe, Unverified 06/05/18 14:08) LEG WEAKNESS simvastatin Allergy (Severe, Unverified 06/05/18 14:08) LEG WEAKNESS Bactrim Allergy (Intermediate, Verified 04/13/17 16:00) RASH sulfamethoxazole Allergy (Intermediate, Verified 06/05/18 14:08) RASH trimethoprim Allergy (Intermediate, Verified 06/05/18 14:08) RASH amoxicillin Allergy (Unknown, Verified 06/05/18 14:08) . atorvastatin Allergy (Unknown, Verified 06/05/18 14:08) acute renal failure clavulanic acid Allergy (Unknown, Verified 06/05/18 14:08) . egg Allergy (Unknown, Verified 06/05/18 14:08) _ latex Allergy (Unknown, Verified 06/05/18 14:08) RASH Penicillins Allergy (Unknown, Verified 06/05/18 14:08) unknown triamcinolone Allergy (Unknown, Verified 06/05/18 14:08) RASH nickel Allergy (Verified 06/05/18 14:08) Redness of Skin capsaicin Adverse Reaction (Severe, Verified 06/05/18 14:08) SKIN SLOTHED FROM HEEL diclofenac Adverse Reaction (Severe, Verified 06/05/18 14:08) SKIN SLOTHED FROM HEEL Diclopak Adverse Reaction (Severe, Verified 04/13/17 16:00) SKIN SLOTHED FROM HEEL isopropyl alcohol Adverse Reaction (Severe, Verified 06/05/18 14:08) SKIN SLOTHED FROM HEEL propylene glycol Adverse Reaction (Severe, Verified 06/05/18 14:08) SKIN SLOTHED FROM HEEL acetaminophen Adverse Reaction (Mild, Verified 06/05/18 14:08) VOMITING Height/Weight/Isolation Height 5 ft 6 in Weight 103.1 kg Chemistry 06/05/18 06/06/18 15:31 06:13 Sodium 142 142 Potassium 3.2 L 3.6 Chloride 103 107 Carbon Dioxide 33 H 31 Anion Gap 7.0 4.0 BUN 38 H 33 H Creatinine 1.45 H 1.27 H Glucose 108 H 98 Urinalysis 06/06/18 01:42 Urine Color Yellow Urine Appearance Clear Urine pH 6.5 Ur Specific [place] 1.011 Urine Protein Negative Urine Glucose (UA) Negative Urine Ketones Negative Urine Blood Negative Urine Nitrite Negative Urine Bilirubin Negative (1) DM type 2 (diabetes mellitus, type 2) Diabetes mellitus detention insulin use: unspecified long term care pharmacist insulin use status Diabetes mellitus complication status: with kidney complications Diabetes mellitus complication detail: with chronic kidney disease Chronic kidney disease stage: stage 3 (moderate) Qualified Code(s): E11.22 - Type 2 diabetes mellitus with diabetic chronic kidney disease; N18.3 - Chronic kidney disease, stage 3 (moderate)
--- NOTE | 2018-06-06 14:19 | Pharmacy Report ---
Pharmacy Glycemic Short Note 2 - Date of Service June 06, 2018 - Glycemic Short BSG Results (Last 24 hours): 06/05/18 06/05/18 06/05/18 15:31 20:46 23:38 Glucose 108 H POC Glucose 120 H 104 H 06/06/18 06/06/18 06/06/18 03:59 06:13 07:31 Glucose 98 POC Glucose 110 H 97 06/06/18 11:25 Glucose POC Glucose 140 H OUTPATIENT ANTIDIABETIC REGIMEN: * Trulicity 0.75mg SQ weekly, * saxagliptin 5mg QD ASSESSMENT: * A1c 06/06/18: 7.6% * Patient received 15 units last evening and fasting BSG this morning was very well controlled. * Will slightly back off of lantus dosing for todays dosing * Post-prandial BSG have remained in range. Will continue current carb coverage and correction factor PLAN FOR INPATIENT GLYCEMIC CONTROL: * Hold outpatient oral diabetes medications * Basal insulin * Lantus 12 units SQ BID * Bolus insulin * NovoLog per scale ACHS or Q6hrs while NPO * Goal Range: Low 110 mg/dL - High 150 mg/dL * Correction Factor: 25 mg/dL/unit * Nutritional / Prandial insulin per carb ratio of 1 unit per 10 grams CHO consumed PLAN FOR DISCHARGE: *
[2018-06-06] MEDS: ETHACRYNIC ACID 25 MG TAB PO SCH (19:55)
[2018-06-06] MEDS: MIRTAZAPINE TAB 15 MG TAB PO SCH (19:56)
[2018-06-06] MEDS: PRAMIPEXOLE DIHYDROCHLO 0.5 MG TAB PO SCH (19:57)
[2018-06-06] MEDS ORDERED: INSULIN ASPART 100 UNITS/ML 3 ML PEN SC SCH (21:45)
[2018-06-07] MEDS ORDERED: INSULIN ASPART 100 UNITS/ML 3 ML PEN SC SCH (02:00)
[2018-06-07 06:09] LABS: Mean Corpuscular Hgb Conc 31.4 g/dL (32-36)
[2018-06-07] MEDS: LEVOTHYROXINE SODIUM 150 MCG TABLET PO SCH (06:13)
[2018-06-07 06:32] LABS: Hematocrit (blood only) 33.1 % (37-47); Hemoglobin 10.4 g/dL (12.0-16.0); Mean Corpuscular Volume 74.4 fL (80-100); RDW Coefficient of Variation 19.2 % (11.5-14.5); RDW Standard Deviation 51.9 fL (36.4-46.3); Red Blood Count 4.45 M/uL (4.2-5.4); White Blood Count 7.54 K/uL (4.8-10.8)
[2018-06-07 06:45] LABS: Albumin Level 2.6 gm/dl (3.4-5.0); BUN Creatinine Ratio 24.8 (10-20); Calcium 7.9 mg/dl (8.5-10.1); Creatinine Clr Calc Pharmacy 52.7 ml/min; Est GFR (African American) 50.3; Est GFR (Non-African American) 43.4; Magnesium 1.5 mg/dl (1.8-2.4); Potassium 3.5 mmol/L (3.5-5.1)
[2018-06-07 06:48] LABS: Albumin Globulin Ratio 0.8 (0.9-2); Globulin 3.3 gm/dl (2.5-4.0); Phosphorus 3.3 mg/dl (2.5-4.9); Total Protein 5.9 gm/dl (6.4-8.2)
[2018-06-07 07:00] LABS: Platelet Count 79 K/uL (130-400); Platelet Estimate Decreased (Normal)
[2018-06-07] MEDS: INSULIN ASPART 100 UNITS/ML 3 ML PEN SC SCH ×4 (07:53→21:36)
[2018-06-07] MEDS: MAGNESIUM OXIDE 400 MG TAB PO SCH ×3 (07:55→21:44)
[2018-06-07] MEDS: ETHACRYNIC ACID 25 MG TAB PO SCH ×2 (07:55→21:41)
[2018-06-07] MEDS: APIXABAN 5 MG TABLET PO SCH ×2 (07:55→21:42)
[2018-06-07] MEDS: MULTIVITAMIN TAB PO SCH (07:55)
[2018-06-07] MEDS: CARVEDILOL 6.25 MG TAB PO SCH ×2 (07:55→21:43)
[2018-06-07] MEDS: CALCIUM CARBONATE 1250MG TAB PO SCH ×2 (07:56→21:41)
[2018-06-07] MEDS: OXYBUTYNIN CHLORIDE 5 MG TAB PO SCH ×2 (07:56→21:41)
[2018-06-07] MEDS: VENLAFAXINE HCL XR 150 MG CAPXR PO SCH (07:56)
[2018-06-07] MEDS: PREGABALIN 75 MG CAP PO SCH (08:01)
[2018-06-07] MEDS ORDERED: INSULIN GLARGINE SOLOSTAR 100 UNITS/ML 3 ML PEN SC SCH ×3 (09:00→21:00)
[2018-06-07] MEDS: MAGNESIUM SULFATE / D5W 1 GM/100 ML BAG IV SCH ×2 (09:45→10:53)
[2018-06-07] MEDS ORDERED: MAGNESIUM OXIDE 400 MG TAB PO ONE (10:45)
--- NOTE | 2018-06-07 11:09 | Hospitalist Progress Note ---
Date of Service June 07, 2018 Assessment & Plan (1) Acute kidney injury superimposed on CKD: present on admission with hypotension with creatinine 1.4 baseline creatinine seems to be in the low 1's Likely prerenal nature secondary to poor p.o. intake secondary to nausea from the Levaquin Will resume ethacrynic acid Monitor electrolytes Will check BMP within 1 week (2) Hypomagnesemia: Mg 1.5 today Mg replaced Monitor electrolytes (3) Hypokalemia: K stable Monitor BMP (4) DM type 2 (diabetes mellitus, type 2): Home oral agents and Trulicity on hold during hospital course Pharmacy consult for glycemic management Will resume oral med on discharge (5) S/P CABG x 4: (6) Ischemic cardiomyopathy: Stable Continue carvedilol Afib rate controlled with carvedilol Continue Eliquis DVT px on Eliquis Disposition Will discharge today Subjective Pt was seen and examined Lying in bed with no distress Pt said that her breathing is at baseline Denies any chest pain, palpitation, dizziness and fever Physical Exam Vital Signs (Past 24 Hours): Last Vital Signs Temp 36.9 C 06/07/18 07:51 Pulse 93 H 06/07/18 07:51 Resp 18 06/07/18 07:51 BP 120/81 06/07/18 07:51 Pulse Ox 96 06/07/18 07:51 Physical Exam: General- No acute distress Head- atraumatic Eyes- PERRL, EOMI, ENT- oropharynx clear Neck- supple, no JVD Lungs- clear to auscultation Heart- regular rhythm; no murmur Abdomen- normal bowel sounds, soft, nontender Extremities- no calf tenderness Neuro- alert, oriented x 3; PERRL, EOMI; no facial palsy; no dysarthria Skin- warm & dry (1) DM type 2 (diabetes mellitus, type 2) Chronic kidney disease stage: stage 3 (moderate) Diabetes mellitus complication detail: with chronic kidney disease Diabetes mellitus complication status: with kidney complications 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
[2018-06-07] MEDS ORDERED: ETHACRYNIC ACID 25 MG TAB PO SCH (12:00)
--- NOTE | 2018-06-07 12:02 | XRay Report ---
XR chest 1V portable CLINICAL HISTORY: dyspnea COMPARISON STUDY: Chest radiograph June 05, 2018. FINDINGS: Left subclavian pacer is in place. There are median sternotomy wires and clips from bypass grafting. Moderate cardiomegaly is noted. There is no pneumothorax. Small right and trace left pleura l effusions are noted. Persistent right basilar opacity is present. There is pulmonary vascular conge stion with suspected mild pulmonary edema. IMPRESSION: 1. Small right and trace left pleural effusions. 2. Persistent pulmonary edema and mild right basilar opacity. Electronically signed by: Rodriguez Bauer M.D. 06/07/2018 12:01 PM
[2018-06-07] MEDS: DOXYCYCLINE HYCLATE 100 MG CAP PO SCH ×2 (13:23→21:40)
--- NOTE | 2018-06-07 13:33 | Pharmacy Report ---
Pharmacy Glycemic Short Note 2 - Date of Service June 07, 2018 - Glycemic Short BSG Results (Last 24 hours): 06/06/18 06/06/18 06/06/18 16:39 20:30 20:51 Glucose POC Glucose 84 62 L* 70 06/06/18 06/06/18 06/07/18 22:00 22:44 02:13 Glucose POC Glucose 81 84 90 06/07/18 06/07/18 06/07/18 05:26 07:13 11:16 Glucose 95 POC Glucose 114 H 103 H OUTPATIENT ANTIDIABETIC REGIMEN: * Trulicity 0.75mg SQ weekly, * saxagliptin 5mg QD ASSESSMENT: 06/07 * Post prandial BSGs after lunch trended down yesterday. Carb coverage was loosened for breakfast this morning. As post prandial lunch BSG still on the low side, will remove carb coverage all together and monitor closely * Fasting BSGs remain very well controlled, will slightly reduce dose again today and place a scale for this evening based on BSG. 06/06 * A1c 06/06/18: 7.6% * Patient received 15 units last evening and fasting BSG this morning was very well controlled. * Will slightly back off of lantus dosing for todays dosing * Post-prandial BSG have remained in range. Will continue current carb coverage and correction factor PLAN FOR INPATIENT GLYCEMIC CONTROL: * Hold outpatient oral diabetes medications * Basal insulin * Lantus 9 units SQ this morning, scaled this evening (5 units if BSG 110 or less / 9 units if BSG > 110) * Bolus insulin * NovoLog per scale ACHS or Q6hrs while NPO * Goal Range: Low 110 mg/dL - High 150 mg/dL * Correction Factor: 35 mg/dL/unit * No Nutritional / Prandial insulin for now PLAN FOR DISCHARGE: * Well controlled on out patient regimen. Recommend continuing home regimen on discharge.
[2018-06-07] MEDS: PRAMIPEXOLE DIHYDROCHLO 0.5 MG TAB PO SCH (21:40)
[2018-06-07] MEDS: PREGABALIN 100 MG CAP PO SCH (21:42)
[2018-06-07] MEDS: MIRTAZAPINE TAB 15 MG TAB PO SCH (21:43)
[2018-06-08] MEDS ORDERED: INSULIN ASPART 100 UNITS/ML 3 ML PEN SC SCH (02:00)
[2018-06-08] MEDS: LEVOTHYROXINE SODIUM 150 MCG TABLET PO SCH (06:57)
[2018-06-08] MEDS: OXYBUTYNIN CHLORIDE 5 MG TAB PO SCH (08:16)
[2018-06-08] MEDS: MULTIVITAMIN TAB PO SCH (08:16)
[2018-06-08] MEDS: CARVEDILOL 6.25 MG TAB PO SCH (08:16)
[2018-06-08] MEDS: PREGABALIN 75 MG CAP PO SCH (08:16)
[2018-06-08] MEDS: VENLAFAXINE HCL XR 150 MG CAPXR PO SCH (08:16)
[2018-06-08] MEDS: APIXABAN 5 MG TABLET PO SCH (08:17)
[2018-06-08] MEDS: DOXYCYCLINE HYCLATE 100 MG CAP PO SCH (08:17)
[2018-06-08] MEDS: MAGNESIUM OXIDE 400 MG TAB PO SCH ×2 (08:17→13:31)
[2018-06-08] MEDS: ETHACRYNIC ACID 25 MG TAB PO SCH (08:17)
[2018-06-08] MEDS: INSULIN ASPART 100 UNITS/ML 3 ML PEN SC SCH ×2 (08:19→12:20)
[2018-06-08 08:42] LABS: BUN Creatinine Ratio 23.8 (10-20); Calcium 8.8 mg/dl (8.5-10.1); Creatinine Clr Calc Pharmacy 53.4 ml/min; Est GFR (African American) 50.8; Est GFR (Non-African American) 43.8; Magnesium 1.7 mg/dl (1.8-2.4); Potassium 3.8 mmol/L (3.5-5.1)
[2018-06-08] MEDS ORDERED: MUPIROCIN 2% OINT 22 GM TUBE EXT SCH (09:15)
[2018-06-08] MEDS: CALCIUM CARBONATE 1250MG TAB PO SCH (09:44)
--- NOTE | 2018-06-08 09:49 | Hospitalist Progress Note ---
Date of Service June 08, 2018 Assessment & Plan (1) Acute kidney injury superimposed on CKD: present on admission with hypotension with creatinine 1.4 Creatinine 1.2 today baseline creatinine seems to be in the low 1's Likely prerenal nature secondary to poor p.o. intake secondary to nausea from the Levaquin Continue ethacrynic acid Monitor electrolytes Will check BMP within 1 week (2) Hypoxia: Oxygen saturation dropped yesterday CXR showed small right and trace left pleural effusions. Persistent pulmonary edema and mild right basilar opacity. Doxy was starting yesterday Continue Etacrynic acid and metolazone prn Saturated well on RA today Clinically improves (3) Hypomagnesemia: Mg 1.7 today Mg replaced Monitor electrolytes (4) Hypokalemia: K stable Monitor BMP (5) DM type 2 (diabetes mellitus, type 2): Home oral agents and Trulicity on hold during hospital course Pharmacy consult for glycemic management Will resume oral med on discharge (6) S/P CABG x 4: (7) Ischemic cardiomyopathy: Stable Continue carvedilol Afib rate controlled with carvedilol Continue Eliquis DVT px on Eliquis Disposition Will discharge today Subjective Pt was seen and examined Sitting in chair with no distress Pt said that she feels much better today She is saturated well on RA Denies any chest pain, palpitation and SOB Physical Exam Vital Signs (Past 24 Hours): Last Vital Signs Temp 36.6 C 06/08/18 08:12 Pulse 88 06/08/18 08:12 Resp 18 06/08/18 08:12 BP 109/62 06/08/18 08:12 Pulse Ox 94 06/08/18 08:12 Physical Exam: General- No acute distress Head- atraumatic Eyes- PERRL, EOMI, ENT- oropharynx clear Neck- supple, no JVD Lungs- diminished BS Heart- regular rhythm; no murmur Abdomen- normal bowel sounds, soft, nontender Extremities- no calf tenderness Neuro- alert, oriented x 3; PERRL, EOMI; no facial palsy; no dysarthria Skin- warm & dry (1) DM type 2 (diabetes mellitus, type 2) Chronic kidney disease stage: stage 3 (moderate) Diabetes mellitus complication detail: with chronic kidney disease Diabetes mellitus complication status: with kidney complications Diabetes mellitus prison insulin use: unspecified prison insulin use status Qualified Code(s): E11.22 - Type 2 diabetes mellitus with diabetic chronic kidney disease; N18.3 - Chronic kidney disease, stage 3 (moderate)
[2018-06-08] MEDS ORDERED: MAGNESIUM SULFATE / D5W 1 GM/100 ML BAG IV ONE (10:00)
[2018-06-08] MEDS ORDERED: INSULIN GLARGINE SOLOSTAR 100 UNITS/ML 3 ML PEN SC ONE (16:30)
--- NOTE | 2018-06-09 09:22 | Discharge Summary ---
Date of Service June 14, 2018 Admission HPI Per Admitting Provider 67-year-old female who was sent to the ED today by outpatient wound clinic for evaluation of hypotension. Patient has been following with the wound center for a wound on her left second toe. Most recent cultures grew Pseudomonas and patient was placed on oral Levaquin. Patient reports that since starting the wet Levaquin, it has caused her to have a poor appetite and some nausea. Today while at the wound center for a routine checkup, she was found to be hypotensive and therefore sent to the ED for further evaluation. Patient reports over the past few days she has felt generally weak and overall not well. She reports falling 3 times 4 days ago. These falls appear to be mechanical in nature, no associated syncope or head trauma. Patient denies abdominal pain, vomiting, diarrhea. She denies chest pain shortness of breath. No lightheadedness, dizziness, diaphoresis, syncopal events. No fevers or chills. She denies any urinary symptoms.In the ED, patient was hypotensive at 89/56 which improved with IVF. She also has a mild hypokalemia and BLANCA. In addition to the IVF, she was also given potassium and magnesium replacement. Discharge Data Consultations 06/05/18 18:13 ED Decision to Admit Stat 06/05/18 20:37 Consult Case Management - Discharge Planning Routine
--- NOTE | 2018-06-13 08:47 | Discharge Summary ---
Date of Service June 08, 2018 Admission HPI Per Admitting Provider 67-year-old female who was sent to the ED today by outpatient wound clinic for evaluation of hypotension. Patient has been following with the wound center for a wound on her left second toe. Most recent cultures grew Pseudomonas and patient was placed on oral Levaquin. Patient reports that since starting the wet Levaquin, it has caused her to have a poor appetite and some nausea. Today while at the wound center for a routine checkup, she was found to be hypotensive and therefore sent to the ED for further evaluation. Patient reports over the past few days she has felt generally weak and overall not well. She reports falling 3 times 4 days ago. These falls appear to be mechanical in nature, no associated syncope or head trauma. Patient denies abdominal pain, vomiting, diarrhea. She denies chest pain shortness of breath. No lightheadedness, dizziness, diaphoresis, syncopal events. No fevers or chills. She denies any urinary symptoms.In the ED, patient was hypotensive at 89/56 which improved with IVF. She also has a mild hypokalemia and BLANCA. In addition to the IVF, she was also given potassium and magnesium replacement. Admission Exam Per Admitting Provider Constitutional: WD/WN, vitals as above + obese Eyes: PERRL, conjunctivae normal, anicteric sclerae ENMT: Ears: no external ear abnormality Nose: no external nose abnormality Mouth: + dry oral mucous membranes Respiratory: normal respiratory effort, lungs clear to auscultation Cardiovascular: Rate/Rhythm: regular rate and regular rhythm Vessels: normal peripheral pulses Extremities: no edema Gastrointestinal normal bowel sounds, soft, nontender, no hepatosplenomegaly Musculoskeletal: no cyanosis or clubbing, extremities motor strength 5/5 Skin: no rashes, warm and dry Chronic, mild erythema noted to the bilateral lower extremities; dressing in place, dry, and intact to left second toe Neurologic: PERRL, EOMI, accommodation nl, no face palsy, no dysarthria Psychiatric: A+Ox3, euthymic affect Principal Diagnosis Acute kidney injury superimposed on CKD Hypomagnesemia hypokalemia Discharge Exam General- No acute distress Head- atraumatic Eyes- PERRL, EOMI, ENT- oropharynx clear Neck- supple, no JVD Lungs- diminished BS Heart- regular rhythm; no murmur Abdomen- normal bowel sounds, soft, nontender Extremities- no calf tenderness Neuro- alert, oriented x 3; PERRL, EOMI; no facial palsy; no dysarthria Skin- warm & dry Discharge Data Allergies Allergy/AdvReac Type Severity Reaction Status Date / Time clindamycin Allergy Severe RASH, Verified 06/05/18 14:08 DELUSIONAL, CONVULSIONS Egg Derived Allergy Severe ANAPHYLAXIS Verified 06/05/18 14:08 furosemide Allergy Severe ANAPHYLAXIS Verified 06/05/18 14:08 rosuvastatin Allergy Severe LEG Unverified 06/05/18 14:08 WEAKNESS simvastatin Allergy Severe LEG Unverified 06/05/18 14:08 WEAKNESS Bactrim Allergy Intermediate RASH Verified 04/13/17 16:00 sulfamethoxazole Allergy Intermediate RASH Verified 06/05/18 14:08 trimethoprim Allergy Intermediate RASH Verified 06/05/18 14:08 amoxicillin Allergy Unknown . Verified 06/05/18 14:08 atorvastatin Allergy Unknown acute Verified 06/05/18 14:08 renal failure clavulanic acid Allergy Unknown . Verified 06/05/18 14:08 egg Allergy Unknown _ Verified 06/05/18 14:08 latex Allergy Unknown RASH Verified 06/05/18 14:08 Penicillins Allergy Unknown unknown Verified 06/05/18 14:08 triamcinolone Allergy Unknown RASH Verified 06/05/18 14:08 nickel Allergy Redness of Verified 06/05/18 14:08 Skin capsaicin AdvReac Severe SKIN Verified 06/05/18 14:08 SLOTHED FROM HEEL diclofenac AdvReac Severe SKIN Verified 06/05/18 14:08 SLOTHED FROM HEEL Diclopak AdvReac Severe SKIN Verified 04/13/17 16:00 SLOTHED FROM HEEL isopropyl alcohol AdvReac Severe SKIN Verified 06/05/18 14:08 SLOTHED FROM HEEL propylene glycol AdvReac Severe SKIN Verified 06/05/18 14:08 SLOTHED FROM HEEL acetaminophen AdvReac Mild VOMITING Verified 06/05/18 14:08 Consultations 06/05/18 18:13 ED Decision to Admit Stat 06/05/18 20:37 Consult Case Management - Discharge Planning Routine Ordered Studies XR chest 1V portable CLINICAL HISTORY: dyspnea COMPARISON STUDY: Chest radiograph June 05, 2018. FINDINGS: Left subclavian pacer is in place. There are median sternotomy wires and clips from bypass grafting. Moderate cardiomegaly is noted. There is no pneumothorax. Small right and trace left pleural effusions are noted. Persistent right basilar opacity is present. There is pulmonary vascular congestion with suspected mild pulmonary edema. IMPRESSION: 1. Small right and trace left pleural effusions. 2. Persistent pulmonary edema and mild right basilar opacity. Electronically signed by: Rodriguez Bauer M.D. 06/07/2018 12:01 PM Dictated: 06/07/18 1200 Transcribed: 06/07/18 1200 XR chest 1V portable CLINICAL HISTORY: weakness dyspnea COMPARISON STUDY: 05/23/2018 FINDINGS: Mild cardiomegaly. Implantable unipolar cardiac pacemaker/fibrillator. Prior median sternotomy. Moderate prominence of pulmonary vasculature. IMPRESSION: Congestive heart failure The above report was generated using voice recognition software. It may contain grammatical, syntax or spelling errors. Electronically signed by: John Shields M.D. 06/05/2018 3:46 PM Dictated: 06/05/18 1545 Transcribed: 06/05/18 1545 Hospital Course (1) Acute kidney injury superimposed on CKD: present on admission with hypotension with creatinine 1.4 Creatinine 1.2 today baseline creatinine seems to be in the low 1's Likely prerenal nature secondary to poor p.o. intake secondary to nausea from the Levaquin Continue ethacrynic acid Monitor electrolytes Will check BMP within 1 week (2) Hypoxia: Oxygen saturation dropped yesterday CXR showed small right and trace left pleural effusions. Persistent pulmonary edema and mild right basilar opacity. Doxy was starting yesterday Continue Etacrynic acid and metolazone prn Saturated well on RA today Clinically improves (3) Hypomagnesemia: Mg 1.7 today Mg replaced Monitor electrolytes (4) Hypokalemia: K stable Monitor BMP (5) DM type 2 (diabetes mellitus, type 2): Home oral agents and Trulicity on hold during hospital course Pharmacy consult for glycemic management Will resume oral med on discharge (6) S/P CABG x 4: (7) Ischemic cardiomyopathy: Stable Continue carvedilol Afib rate controlled with carvedilol Continue Eliquis DVT px on Eliquis Disposition Will discharge today Total Time Total Time Spent Total Time Spent (In Minutes): 35 minutes Total Time Includes: Examination of the Patient, Discharge Planning, Medication Reconciliation, Communication With Other Providers and Other Discharge Plan Discharge Items Patient Disposition: Transfer Halfway Fac Reason For Visit: BLANCA, HYPOTENSION, HYPOKLEMIA, HYPOMAGNESEMIA Discharge Diagnosis: Acute kidney injury superimposed on CKD Hypomagnesemia hypokalemia Discharge Goals: Decrease discomfort, Improve disease control, Improve function and Increase independence Activity: Resume your previous activity Activity Comment: as tolerated Non-emergency contact: Primary Care Provider Call non-emergency contact if: you have any medication questions Follow-up/Referrals: Swapnil Pearson [Primary Care Provider] - 06/12/18 9:30 am (BRING UPDATED MEDICATION LIST AND DAILY WEIGHT LOG TO APPOINTMENT. BE SURE FACILITY INCLUDES THESE IN YOUR PACKET!) Renetta Hammonds PA-C [Physician] - 06/12/18 9:30 am (BRING UPDATED MED LIST, DAILY WEIGHT LOG, AND LABS TO FOLLOW UP APPOINTMENT. CONFIRM THESE PAPERS ARE INCLUDED IN YOUR PACKET FROM THE FACILITY.) Diet: Carb Consistent or DM2 Addtl Provider Instructions: Follow up with your primary care provider Check BMP and Mg level in 1 week Follow up with your cardiology Fall precaution Continue physical and occupational therapy Complete course of antibiotic Call your Primary Care doctor if any of the following symptoms or problems start or get worse: * Shortness of breath or difficulty breathing * Wake up at night short of breath * Chest pain * Cough * Swelling of your hands, feet, or legs * More fatigued or tired with your normal activity * Palpitations - sudden fast heart beats WEIGHT * Weigh yourself every morning after using the bathroom. * Use the same scale. * Wear the same amount of clothing. * Write your weight down on a chart. * Call your Primary Care doctor if you gain more than 2-3 pounds in 1-2 days. MEDICATIONS * Use this discharge instruction sheet for medication instructions. * Take your medications at the time your doctor ordered. * Do not skip a dose of your medicines. * If you miss a dose of medicine, take it as soon as possible, but DO NOT DOUBLE A DOSE. * Read your medicine information when you get home. * Know all of the side effects of your medicine. If in doubt, ask your pharmacist * Call your Primary Care doctor's office if you have any side effects. * Be sure all of your doctors know what medicine and herbs you take (including cold, flu, and herbal medicine). Take the following with you to your follow-up doctor appointments: * Weight Chart * Medication List * List of questions Do not drink excessive alcohol, beer or wine. PLEASE ORDER BMP AND MAGNESIUM LEVELS FOR Tuesday06/09/18. FAX TO [facility] [phone] Prescriptions: New doxycycline hyclate 100 mg Capsule 100 mg PO BID 10 Days Qty: 20 RF: 0 Continued carvedilol [Coreg] 6.25 mg tablet 6.25 mg PO BID RF: 0 econazole 1 % Cream 1 applic TOPICAL DAILY PRN (Reason: Rash) RF: 0 albuterol sulfate 90 mcg/actuation Hfa Aerosol Inhaler 2 puff INHALATION Q6H PRN (Reason: Wheezing) RF: 0 calcium citrate 200 mg (950 mg) Tablet 400 mg PO BID RF: 0 ergocalciferol (vitamin D2) 50,000 unit Capsule 50,000 unit PO WK RF: 0 Eliquis 5 mg Tablet 5 mg PO BID RF: 0 ondansetron HCl [Zofran] 4 mg Tablet 4 mg PO QID PRN (Reason: Nausea) RF: 0 ethacrynic acid 25 mg tablet 50 mg PO BID RF: 0 metolazone 5 mg Tablet 2.5 mg PO DAILY PRN (Reason: WT GAIN >2 LBS/>SWELLING) RF: 0 venlafaxine 150 mg Capsule,Extended Release 24hr 150 mg PO DAILY RF: 0 tramadol [Ultram] 50 mg tablet 50 mg PO Q8 PRN (Reason: PAIN 4-10) RF: 0 pramipexole 0.5 mg Tablet 1.5 tab PO HS RF: 0 magnesium hydroxide [Milk of Magnesia] 400 mg/5 mL Suspension 30 ml PO UD PRN (Reason: Constipation) RF: 0 mirtazapine 30 mg Tablet 30 mg PO HS RF: 0 levothyroxine 150 mcg tablet 150 mcg PO DAILY RF: 0 levofloxacin [Levaquin] 750 mg Tablet 750 mg PO DAILY RF: 0 oxybutynin chloride 5 mg Tablet 5 mg PO BID RF: 0 Lyrica 75 mg Capsule 150 mg PO DAILY RF: 0 Lyrica 100 mg Capsule 300 mg PO HS RF: 0 Onglyza 2.5 mg tablet 5 mg PO DAILY RF: 0 Slow-Mag 71.5 mg Tablet,Delayed Release (Dr/Ec) 2 tab PO QID RF: 0 potassium chloride 20 mEq Tablet Extended Release 20 meq PO BID RF: 0 Trulicity 0.75 mg/0.5 mL pen injector 1 dose subcut WK RF: 0 multivitamin Tablet 1 tab PO DAILY RF: 0 bisacodyl [Dulcolax (bisacodyl)] 10 mg Suppository 10 mg OH DAILY PRN (Reason: Constipation) RF: 0 Fleet Enema 19-7 gram/118 mL Enema 118 ml OH DAILY PRN (Reason: Constipation) RF: 0 Probiotic 3 billion cell Capsule 3,000 mmu cells PO BID RF: 0 LPS Neutral Flavor 15 gram-105 kcal/30 mL Liquid 30 ml PO DAILY RF: 0 Stand-Alone Forms: [employer] [facility] [employer]/Other Patient Handouts: Hypomagnesemia Dc, Hypotension Dc Discharge Orders: Discharge Order (Routine); Ordered 06/08/18 Ordered By: Jelly Murray Skilled Items Patient informed of condition?: Yes DNR: No Discharge Level of Care: Skilled Communicable Disease: No Discharge Prognosis: Stable Admission Data Admit Date/Time: 06/05/18 18:41 Attending Provider: Jelly Murray Admit Provider: Chito Martinez Primary Care Provider: Swapnil Pearson Other Providers: Chito Martinez Service: Telemetry Other Interventions: Discharge Summary Assessment (RN) Last Done: 06/08/18 13:16 DC Date/Time DO NOT enter until pt leaves facility: 06/08/18 14:58
== END 2018-06-08 14:58 | DRG 683 ==
LOC: ED 15:01 → SUATTDRO 18:41 → 2E 18:41

== ENCOUNTER 2018-08-07 19:51 | Inpatient (IN) ==
--- OUTSIDE RECORDS SUMMARY | 2018-08-07 19:54 | External Medical Summary | Continuity of Care Document ---
:1950 Author Name Darryl Dias, Provider Address Unavailable Unavailable , Care Team Providers Name Role Phone Tavon Presley PA-C Unavailable [email or web address] Elsie Dias Unavailable [email or web address] Rajani Dias Unavailable [email or web address] Unavailable [email or web address] Unavailable [email or web address] [place]athi RICE Unavailable Unavailable Sameer Humphries M.D. Unavailable [email or web address] [email or web address] DO Unavailable [email or web address] Unavailable Unavailable Unavailable Problems Hypothyroidism (244.9) (E03.9) Dry eye syndrome (375.15) (H04.129) Diabetic nephropathy (250.40) (E11.21) Obesity (278.00) (E66.9) Diabetic peripheral neuropathy (250.60) (E11.42) Asymptomatic carotid artery stenosis (433.10) (I65.29) Asthma (493.90) (J45.909) Migraine headache (346.90) (G43.909) Proliferative diabetic retinopathy (250.50) (E11.3599) H/O: hysterectomy (V88.01) (Z90.710) Pain syndrome, chronic (338.4) (G89.4) Mild obstructive sleep apnea (327.23) (G47.33) ICD (implantable cardioverter-defibrilla tor), single, in situ (V45.02) (Z95.810) Hypomagnesemia (275.2) (E83.42) Hypertension (401.9) (I10) 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) Cardiomyopathy, ischemic (414.8) (I25.5) CAD, multiple vessel (414.00) (I25.10) Sepsis due to methicillin resistant Stap hylococcus aureus (MRSA) with metabolic encephalopathy (038.12) (A41.02) Chronic kidney disease (585.9) (N18.9) 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) Dyslipidemia (272.4) (E78.5) Chronic obstructive pulmonary disease (496) (J44.9) Former smoker (V15.82) (Z87.891) Allergies and Adverse Reactions Clindamycin (Allergy) Reaction: Seizures furosemide (Allergy) Lasix TABS (Allergy) Reaction: Swelling Lipitor TABS (Allergy) Reaction: Myalgia Losartan Potassium TABS (Allergy) Penicillins (Allergy) Pravastatin Sodium TABS (Allergy) Reacti on: Myalgia Triamcinolone Acetonide CREA (Allergy) Tylenol TABS (Allergy) Reaction: Itching , Nausea Zocor TABS (Allergy) Reaction: Myalgia Eggs (Allergy) Latex (Allergy) Medications Trulicity 0.75 MG/0.5ML Subcutaneous Solution Pen-injector; TAKE 1 SHOT WEEKLY 0.5 ML Pen Refills: 0 Carvedilol 6.25 MG Oral Tablet; TAKE 1 T ABLET BY MOUTH TWICE A DAY -- TAKE WITH MORNING AND EVENING MEAL JEM Presley Start: 25-Jan-2018 Quantity: 180 Refills: 3 Levothyroxine Sodium 150 MCG Oral Tablet ; TAKE ONE TABLET BY MOUTH ONCE DAILY IN THE MORNING CHANDRA Matos Start: 02-Sep-2015 Quantity: 90 Refills: 3 Venlafaxine HCl ER 150 MG Oral Tablet Ex tended Release 24 Hour; TAKE 1 TABLET After meals Larissa Gerard Start: 02-Sep-2015 Refills: 0 Ralitsa OneTouch Delica Lancets 33G; test 3 times per day YOLANDA Matos NP Quantity: 270 Refills: 3 OneTouch Ultra Blue In Vitro Strip; Test 3 times daily for use with multiple daily insulin injections CHANDRA Matos 100 Strip Box Quantity: 3 Refills: 3 Pramipexole Dihydrochloride 0.5 MG Oral Tablet; take 1 and 1/2 tablet daily Larissa Gerard Start: 13-Mar-2010 Refills: 0 Ralitsa Calcium Citrate 200 MG Oral Tablet; TAKE 2 TABLET Twice taryn y Refills: 0 Probiotic CAPS; TAKE 1 CAPSULE TWICE DAILY. Refills: 0 Ethacrynic Acid 25 MG Oral Tablet; TAKE 1 TABLET PO BID JEM Samayoa Quantity: 60 Refills: 0 Ondansetron HCl - 4 MG Oral Tablet; TAKE 1 TABLET BY MOUTH EVERY 6 HOURS NEEDED Refills: 0 Econazole Nitrate 1 % External Cream; AP PLY SPARINGLY TO THE AFFECTED AREA(S) TWICE DAILY. Larissa Gerard Start: 30-Apr-2011 Quantity: 3 Ralitsa 85 GM Tube Refills: 3 Vitamin D (Ergocalciferol) 70741 UNIT Or al Capsule; TAKE ONE CAPSULE WEEKLY WITH HEAVIEST MEAL OF THE DAY Larissa Gerard Start: 09-Mar-2016 Quantity: 4 Ralitsa Refills: 4 [employer] Ultra 2 w/Device Kit; DISPENSE ONE GLUCOMETER --USE DIRECTED Larissa Gerard Start: 09-Mar-2017 Quantity: 1 Ralitsa Refills: 0 Remeron 30 MG Oral Tablet; TAKE 1 TABLET AT BEDTIME. Refills: 0 Magnesium Oxide 400 MG Oral Tablet; TAKE 1 TABLET 3 times da arabella Refills: 0 Eliquis 5 MG Oral Tablet; Take 1 tablet twice daily Quantity: 60 Refills: 3 Milk of Magnesia 400 MG/5ML Oral Suspension; USE DIRECTED . Refills: 0 Multivitamins TABS; TAKE 1 TABLET DAILY. Refills: 0 Glucagon Emergency 1 MG Injection Kit Refills: 0 Fleet Enema ENEM; USE ENEMA PRN 133 ML Bottle Refills: 0 Bisacodyl 10 MG Rectal Suppository; INSERT SUPP PRN Refills: 0 Albuterol 90 MCG/ACT AERS; INHALE 1 TO 2 PUFFS EVERY 4 TO 6 HOURS NEEDED AND DIRECTED. Refills: 0 Lyrica 150 MG Oral Capsule; TAKE 1 CAPSULE BY MOUTH TW ICE DAILY Donna Del Valle M.D. Start: 28-Aug-2015 Quantity: 90 Ralitsa Refills: 0 Procedures History of Rotator Cuff Repair Status: C ompleted History of Sinus Surgery Status: Complet ed History of Primary Repair Of Ruptured Achilles Tendon Status: Completed History of CABG Status: Completed History of Cardio-defib Pulse Generator Type Single-Chamber Status: Completed Immunizations Adacel 5-2-15.5 LF-MCG/0.5 Intramuscular Suspension On: 2009 Pneumococcal polysaccharide vaccine, 23 valent On: 23-Feb-20 11 14:46 Lot #: [id number], [employer] Influenza Comments:Contraindic ated Influenza Comments:declined 05/09/17 Influenza Comments:DECLINED 03/16/16 Family History Unknown Family Member Family history of Congestive Heart Failure Status: Active Comments: Family History Family history of Diabetes Mellitus (V18.0) Status: Active Comments: Family History Mother Family history of Kidney Cancer (V16.51) Status: Active Sister Family history of Anxiety (300.00) (F41.9) Status: Active Family history of malignant neoplasm (V16.9) (Z80.9) Status: Active Family history of depression (V17.0) (Z81.8) Status: Active Family history of diabetes mellitus (V18.0) (Z83.3) Status: Active Father Family history of myocardial infarction (V17.3) (Z82.49) Sta tus: Active Social History - Smoking Status Former smoker Plan of Treatment Planned Encounters Appointment; Eliazar Zimmerman M.D. Start: 11-Oct-2018 15:15 Request Planned Observations Planned Goals not documented Results No Known Results Results not documented Vital Signs 20-Jul-2018 15:34 Systolic 100 mm[Hg] Comments: Position: Standing Diastolic 54 mm[Hg] Comments: Position: Standing Heart Rate 84 /min BMI Calculated 26.5 kg/m2 Weight 169.1875 lb BSA Calculated 1.88 m2 14-Jul-2018 13:17 Systolic 100 mm[Hg] Diastolic 60 mm[Hg] Heart Rate 77 /min Respiration 18 /min O2 Saturation 100 % Comments: Source: RA Encounters Appointment; Renetta Hammonds PA-C 20-Jul-2018 15:30 Encounter Diagnosis: Problem not documented Appointment; Renetta Mcdaniels DO 14-Jul-2018 13:15 Encounter Diagnosis: Problem not documented Appointment; Ana Gray PA-C 07-Jul-2018 10:30 Encounter Diagnosis: Problem not documented Appointment; Renetta Hammonds PA-C 07-Jul-2018 9:00 Encounter Diagnosis: Problem not documented Appointment; Renetta Hammonds PA-C 26-Jun-2018 8:30 Encounter Diagnosis: Problem not documented Appointment; Renetta Hammonds PA-C 12-Jun-2018 9:30 Encounter Diagnosis: Problem not documented Appointment; Torey Watt DO 30-May-2018 12:50 Encounter Diagnosis: Problem not documented Appointment; Renetta Hammonds PA-C 30-May-2018 11:00 Encounter Diagnosis: Problem not documented Appointment; Renetta Hammonds PA-C 23-May-2018 9:30 Encounter Diagnosis: Problem not documented Appointment; Renetta Hammonds PA-C 16-May-2018 10:00 Encounter Diagnosis: Problem not documented Appointment; Renetta Mcdaniels DO 12-May-2018 13:15 Encounter Diagnosis: Problem not documented Appointment; Dhruv Bo M.D. 08-May-2018 15:45 Encounter Diagnosis: Problem not documented Appointment; Renetta Hammonds PA-C 08-May-2018 15:00 Encounter Diagnosis: Problem not documented Appointment; Renetta Mcdaniels DO 12-Apr-2018 11:30 Encounter Diagnosis: Problem not documented Appointment; Renetta Hammonds PA-C 06-Apr-2018 14:00 Encounter Diagnosis: Problem not documented Appointment; Ken Fernandez M.D. 06-Apr-2018 12:30 Encounter Diagnosis: Problem not documented Appointment; Torey Watt DO 07-Mar-2018 13:30 Encounter Diagnosis: Problem not documented Appointment; Tavon Presley PA-C 25-Jan-2018 13:30 Encounter Diagnosis: Problem not documented Appointment; [address] 30-Dec-2017 10:00 Encounter Diagnosis: Problem not documented Appointment; Dhruv Bo M.D. 22-Dec-2017 10:00 Encounter Diagnosis: Problem not documented Appointment; Royal Mayen M.D. 25-Nov-2017 11:30 Encounter Diagnosis: Problem not documented Appointment; Vane Matos CRNP 14-Nov-2017 10:15 Encounter Diagnosis: Problem not documented Appointment; Royal Mayen M.D. 10-Aug-2017 13:30 Encounter Diagnosis: Problem not documented Appointment; Eliazar Zimmerman M.D. 29-Jun-2017 13:00 Encounter Diagnosis: Problem not documented Appointment; Dhruv Bo M.D. 21-Jun-2017 14:00 Encounter Diagnosis: Problem not documented Appointment; [facility], Nursing [facility] 01-Jun-2017 10:45 Encounter Diagnosis: Problem not documented Appointment; Dhruv Bo M.D. 26-May-2017 12:00 Encounter Diagnosis: Problem not documented Appointment; Dhruv Bo M.D. 19-May-2017 10:15 Encounter Diagnosis: Problem not documented Appointment; Vane Matos CRNP 09-May-2017 14:15 Encounter Diagnosis: Problem not documented Appointment; Eliazar Zimmerman M.D. 28-Apr-2017 11:30 Encounter Diagnosis: Problem not documented Appointment; Yolanda Higgins PA-C 25-Apr-2017 14:45 Encounter Diagnosis: Problem not documented Appointment; Shelly Gardiner PA-C 22-Apr-2017 9:30 Encounter Diagnosis: Problem not documented Appointment; Pulmonary, Funct Testing 12-Apr-2017 11:30 Encounter Diagnosis: Problem not documented Appointment; Eliazar Zimmerman M.D. 23-Mar-2017 14:00 Encounter Diagnosis: Problem not documented Appointment; Bj Gerard M.D. 16:20 Encounter Diagnosis: Problem not documented Appointment; Vascular, Studies [facility] 23-Feb-2017 14:30 Encounter Diagnosis: Problem not documented Appointment; Shelly Gardiner PA-C 15-Feb-2017 15:00 Encounter Diagnosis: Problem not documented Appointment; Royal Mayen M.D. 11-Feb-2017 10:00 Encounter Diagnosis: Problem not documented Appointment; Bj Gerard M.D. 15:00 Encounter Diagnosis: Problem not documented Appointment; Shelly Gardiner PA-C 03-Feb-2017 13:00 Encounter Diagnosis: Problem not documented Appointment; Shelly Gardiner PA-C 26-Jan-2017 11:15 Encounter Diagnosis: Problem not documented Appointment; Vane Matos CRNP 24-Dec-2016 13:45 Encounter Diagnosis: Problem not documented Appointment; Bj Gerard M.D. 14:00 Encounter Diagnosis: Problem not documented Appointment; Royal Mayen M.D. 23-Sep-2016 14:30 Encounter Diagnosis: Problem not documented Appointment; Vane Matos CRNP 16-Sep-2016 15:00 Encounter Diagnosis: Problem not documented Appointment; Eliazar Zimmerman M.D. 11-Oct-2018 15:15 Encounter Diagnosis: Problem not documented
[2018-08-07] MEDS ORDERED: MoRPHine SULFATE 4 MG/ML 1 ML CARP\\VIAL IV PRN (20:08)
[2018-08-07] MEDS ORDERED: ONDANSETRON INJ 2 MG/ML 2 ML VIAL IV STA (20:08)
[2018-08-07] MEDS ORDERED: KETOCONAZOLE 2% CR 15 GM TUBE EXT ONE (20:11)
--- NOTE | 2018-08-07 20:13 | Emergency Department Note ---
Entered by Magnolia Ha acting as a scribe for Eliazar Lobo DO History of Present Illness General Chief complaint: Pain (Generalized) Stated complaint: TAILBONE PAIN, & ABCESSESS BY HER RECTUM Source: patient Limitations: no limitations History of Present Illness Provider complaint: buttocks pain Onset (ago): day(s) 5 Location: buttocks Associated symptoms: + denies other symptoms (stomach pain), + weakness and + other (+diarrhea); no chest pain and no shortness of breath The patient is a 67 year old female who presents to the Emergency Room with complaints of buttocks pain that began 5 days prior to arrival. The patient states that she has diarrhea and weakness. The patient denies any stomach pain, chest pain, or shortness of breath. The patient states that she currently lives at [facility] but states that she was cleaning out her old house earlier in the week when she states she got dizzy and fell on her buttocks. Home Medications Home Medications Medication Instructions Recorded Confirmed Type Eliquis 5 mg PO BID 06/05/18 08/07/18 History Probiotic 1 cap PO BID 06/05/18 08/07/18 History Trulicity 0.75 mg SUBCUT WK 06/05/18 08/07/18 History albuterol sulfate 1 - 2 puff INHALATION .Q4-6HRS PRN 06/05/18 08/07/18 History calcium citrate 400 mg PO BID 06/05/18 08/07/18 History carvedilol [Coreg] 6.25 mg PO BID 06/05/18 08/07/18 History ergocalciferol (vitamin D2) 50,000 units PO WK 06/05/18 08/07/18 History ethacrynic acid 25 mg PO BID 06/05/18 08/07/18 History levothyroxine 150 mcg PO DAILY 06/05/18 08/07/18 History mirtazapine 30 mg PO HS 06/05/18 08/07/18 History multivitamin 1 tab PO DAILY 06/05/18 08/07/18 History potassium chloride 20 meq PO BID 06/05/18 08/07/18 History pramipexole 0.75 mg PO HS 06/05/18 08/07/18 History venlafaxine 150 mg PO DAILY 06/05/18 08/07/18 History magnesium oxide 400 mg PO TID 08/07/18 08/07/18 History pregabalin [Lyrica] 150 mg PO BID 08/07/18 08/07/18 History Allergies Allergy/AdvReac Type Severity Reaction Status Date / Time clindamycin Allergy Severe RASH, Verified 06/16/18 10:10 DELUSIONAL, CONVULSIONS Egg Derived Allergy Severe ANAPHYLAXIS Verified 06/16/18 10:10 furosemide Allergy Severe ANAPHYLAXIS Verified 06/16/18 10:10 rosuvastatin Allergy Severe LEG Unverified 06/16/18 10:10 WEAKNESS simvastatin Allergy Severe LEG Unverified 06/16/18 10:10 WEAKNESS Bactrim Allergy Intermediate RASH Verified 04/13/17 16:00 sulfamethoxazole Allergy Intermediate RASH Verified 06/16/18 10:10 trimethoprim Allergy Intermediate RASH Verified 06/16/18 10:10 amoxicillin Allergy Unknown . Verified 06/16/18 10:10 atorvastatin Allergy Unknown acute Verified 06/16/18 10:10 renal failure clavulanic acid Allergy Unknown . Verified 06/16/18 10:10 egg Allergy Unknown _ Verified 06/16/18 10:10 latex Allergy Unknown RASH Verified 06/16/18 10:10 losartan Allergy Unknown Unknown Verified 08/07/18 21:01 Penicillins Allergy Unknown unknown Verified 06/16/18 10:10 pravastatin Allergy Unknown Unknown Verified 08/07/18 21:01 triamcinolone Allergy Unknown RASH Verified 06/16/18 10:10 nickel Allergy Redness of Verified 06/16/18 10:10 Skin capsaicin AdvReac Severe SKIN Verified 06/16/18 10:10 SLOTHED FROM HEEL diclofenac AdvReac Severe SKIN Verified 06/16/18 10:10 SLOTHED FROM HEEL Diclopak AdvReac Severe SKIN Verified 04/13/17 16:00 SLOTHED FROM HEEL isopropyl alcohol AdvReac Severe SKIN Verified 06/16/18 10:10 SLOTHED FROM HEEL propylene glycol AdvReac Severe SKIN Verified 06/16/18 10:10 SLOTHED FROM HEEL acetaminophen AdvReac Mild VOMITING Verified 06/16/18 10:10 Past Med/Surg History Medical History Paroxysmal atrial fibrillation (Chronic) History of hysterectomy (Chronic) Thrombophlebitis arm (Resolved) Staphylococcus aureus septicemia (Resolved) 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) Pleural effusion (Resolved) Toe ulcer due to DM (Acute) 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) Depression (Chronic) DM type 2 (diabetes mellitus, type 2) (Chronic) Neuropathy (Chronic) Hypothyroid (Chronic) CAD (coronary artery disease) (Chronic) Ischemic cardiomyopathy (Chronic) Hyperlipidemia (Chronic) GERD (gastroesophageal reflux disease) (Chronic) KAVIN on CPAP (Chronic) Surgical History H/O Achilles tendon repair (Chronic) AICD (automatic cardioverter/defibrillator) present (Chronic) S/P rotator cuff repair (Chronic) S/P CABG x 4 (Chronic) Social History Preferred Language: [place] Zealander Communication Ability: Effective Beliefs That Will Affect Care: None and Adventism Adventism Beliefs: Mormonism Current Living Situation: [facility] Feels Safe at Home: Yes Smoking Status: Former smoker Second Hand Exposure: No Hx Alcohol Use: No (quit drinking in 1987) Hx Substance Use: No Review of Systems See HPI for pertinent positives & negatives. and A total of 10 systems reviewed and were otherwise negative Physical Exam Vital Signs Vital Signs - 24 hr 08/07/18 20:01 08/07/18 20:08 08/07/18 21:01 Temperature 37.3 C Temperature Source Oral Sepsis Action Taken by Nursing No Action Required Pulse Rate 102 H 95 H 95 H Pulse Rate [Bilateral Apical] Pulse Rate from SpO2 Sensor 94 H Pulse Rhythm Regular Respiratory Rate 22 20 22 Respiratory Effort / Characteristics Non-Labored Spontaneous Respiratory Depth Normal Blood Pressure 105/78 109/66 Blood Pressure [Left Arm] Blood Pressure Mean 87 80 Blood Pressure Mean [Left Arm] Blood Pressure Position [Left Arm] Pulse Oximetry 97 92 100 Oxygen Delivery Method Room Air Room Air Oxygen Flow Rate 08/07/18 21:05 08/07/18 21:10 08/07/18 21:20 Temperature Temperature Source Sepsis Action Taken by Nursing Pulse Rate 94 H 97 H 94 H Pulse Rate [Bilateral Apical] Pulse Rate from SpO2 Sensor 95 H 97 H 94 H Pulse Rhythm Respiratory Rate 25 H 17 18 Respiratory Effort / Characteristics Respiratory Depth Blood Pressure Blood Pressure [Left Arm] Blood Pressure Mean Blood Pressure Mean [Left Arm] Blood Pressure Position [Left Arm] Pulse Oximetry 98 97 100 Oxygen Delivery Method Oxygen Flow Rate 08/07/18 21:30 08/07/18 21:31 08/07/18 21:40 Temperature Temperature Source Sepsis Action Taken by Nursing Pulse Rate 95 H 96 H 95 H Pulse Rate [Bilateral Apical] Pulse Rate from SpO2 Sensor 95 H 95 H 95 H Pulse Rhythm Respiratory Rate 20 21 21 Respiratory Effort / Characteristics Respiratory Depth Blood Pressure 93/52 L Blood Pressure [Left Arm] Blood Pressure Mean 65 Blood Pressure Mean [Left Arm] Blood Pressure Position [Left Arm] Pulse Oximetry 99 99 100 Oxygen Delivery Method Oxygen Flow Rate 08/07/18 21:50 08/07/18 22:00 08/07/18 22:01 Temperature Temperature Source Sepsis Action Taken by Nursing Pulse Rate 95 H 94 H 93 H Pulse Rate [Bilateral Apical] Pulse Rate from SpO2 Sensor 95 H 93 H 95 H Pulse Rhythm Respiratory Rate 19 20 36 H Respiratory Effort / Characteristics Respiratory Depth Blood Pressure 120/66 Blood Pressure [Left Arm] Blood Pressure Mean 84 Blood Pressure Mean [Left Arm] Blood Pressure Position [Left Arm] Pulse Oximetry 100 100 100 Oxygen Delivery Method Oxygen Flow Rate 08/07/18 22:10 08/07/18 22:32 08/07/18 22:34 Temperature Temperature Source Sepsis Action Taken by Nursing Pulse Rate 94 H 95 H 95 H Pulse Rate [Bilateral Apical] Pulse Rate from SpO2 Sensor 94 H 94 H 95 H Pulse Rhythm Respiratory Rate 24 29 H 20 Respiratory Effort / Characteristics Respiratory Depth Blood Pressure 100/55 L Blood Pressure [Left Arm] Blood Pressure Mean 70 Blood Pressure Mean [Left Arm] Blood Pressure Position [Left Arm] Pulse Oximetry 100 97 98 Oxygen Delivery Method Oxygen Flow Rate 08/07/18 23:03 08/08/18 00:41 08/08/18 01:04 Temperature Temperature Source Sepsis Action Taken by Nursing Pulse Rate Pulse Rate [Bilateral Apical] 91 H 87 89 Pulse Rate from SpO2 Sensor Pulse Rhythm Respiratory Rate 22 20 20 Respiratory Effort / Characteristics Non-Labored Non-Labored Respiratory Depth Normal Normal Blood Pressure Blood Pressure [Left Arm] 113/74 115/60 110/49 L Blood Pressure Mean Blood Pressure Mean [Left Arm] 87 78 69 Blood Pressure Position [Left Arm] Right Lateral Pulse Oximetry 99 99 98 Oxygen Delivery Method Nasal Cannula Room Air Oxygen Flow Rate 2 GENERAL: The patient is awake and alert. She appears very anxious and appears to be very uncomfortable. She appears to be in significant pain. EYES: The conjunctivae are clear. The pupils are round and reactive. EARS, NOSE, MOUTH AND THROAT: Mucous members are dry. NECK: The neck is nontender and supple. RESPIRATORY: Shallow respirations were noted. There is no tachypnea or conversational dyspnea. CARDIOVASCULAR: Regular rate and rhythm noted. There no murmurs rubs or gallops normal S1 normal S2 GASTROINTESTINAL: The abdomen is mildly distended but soft. There is no tenderness guarding or rigidity noted to palpation. BACK: There is lumbar tenderness to palpation. Range of motion is appears intact. There is significant tenderness over the coccyx. MUSCULOSKELETAL/EXTREMITIES: There is no evidence of gross deformity. Full range of motion is noted in the hips and shoulders. SKIN: Skin is cold and dry. There is pedal edema bilaterally. Pulses are symmetric in both feet. NEUROLOGIC: Patient is awake alert and oriented x3. Course 2004: The patient was evaluated in room A10, and a complete history and physical examination were performed. 2254: I checked on and updated the patient on their results. 2354: I checked on and updated the patient on their results. 0048: I discussed the patient's case with Dr. Gen Vazquez who will evaluate he patient for further hospitalization. Consultations Consultation #1: Dr. Gen Vazquez Time: 00:48 Administered Medications Parenteral Electrolytes (Normosol-R) 1,000 mls @ 200 mls/hr IV .Q5H MARITZA Stop: 09/07/18 00:44 Last Admin: 08/08/18 01:08 Dose: 200 mls/hr Documented by: [id number] Morphine Sulfate (Morphine Sulfate) 4 mg IV Q15M PRN PRN Reason: Pain Stop: 08/21/18 20:07 Last Admin: 08/07/18 20:36 Dose: 4 mg Documented by: [id number] Discontinued Medications Sodium Chloride (Nss 1000ml) 1,000 mls @ 999 mls/hr IV .Q1H1M MARITZA Stop: 08/07/18 21:15 Last Infusion: 08/07/18 22:05 Dose: 0 mls/hr Documented by: [id number] Admin: 08/07/18 20:37 Dose: 999 mls/hr Documented by: [id number] Magnesium Sulfate/Dextrose (Magnesium Sulfate / D5w) 1 gm in 100 mls @ 100 mls/hr IV Q1H MARITZA Stop: 08/08/18 00:29 Last Infusion: 08/08/18 00:32 Dose: 0 mls/hr Documented by: [id number] Admin: 08/07/18 23:37 Dose: 100 mls/hr Documented by: [id number] Infusion: 08/07/18 23:36 Dose: 0 mls/hr Documented by: [id number] Admin: 08/07/18 22:39 Dose: 100 mls/hr Documented by: [id number] Sodium Chloride (Nss 1000ml) 1,000 mls @ 999 mls/hr IV .Q1H1M ONE Stop: 08/07/18 23:23 Last Infusion: 08/08/18 00:32 Dose: 0 mls/hr Documented by: [id number] Admin: 08/07/18 22:39 Dose: 200 mls/hr Documented by: [id number] Magnesium Sulfate/Dextrose (Magnesium Sulfate / D5w) 1 gm in 100 mls @ 100 mls/hr IV NOW STA Stop: 08/08/18 00:51 Last Admin: 08/08/18 00:31 Dose: 100 mls/hr Documented by: [id number] Ketoconazole (Nizoral 2%) 1 appln EXT ONE ONE Stop: 08/07/18 20:12 Last Admin: 08/07/18 20:37 Dose: 1 appln Documented by: [id number] Ondansetron HCl (Zofran) 4 mg IV NOW STA Stop: 08/07/18 20:09 Last Admin: 08/07/18 20:36 Dose: 4 mg Documented by: [id number] Medical Decision Making Differential Diagnosis Differential diagnosis: Etiologies such as fracture, dislocation, neurovascular compromise, compartment syndrome, soft tissue injury, as well as others were entertained. Medical Records Attestation: I reviewed the patient's medical records. Home Medications Current Medication List: was personally reviewed by me Laboratory Data Attestation: I reviewed the patient's lab results. Result diagrams: 08/07/18 20:31 08/07/18 20:31 Lab Results 08/07/18 08/07/18 08/07/18 Range/Units 20:31 20:31 20:31 WBC 21.12 H (4.8-10.8) K/uL RBC 4.52 (4.2-5.4) M/uL Hgb 10.8 L (12.0-16.0) g/dL Hct 33.1 L (37-47) % MCV 73.2 L (80-100) fL MCH 23.9 L (25-34) pg MCHC 32.6 (32-36) g/dL RDW Std Deviation 51.5 H (36.4-46.3) fL RDW Coeff of Montrell 19.2 H (11.5-14.5) % Plt Count 157 (130-400) K/uL Immature Gran % (Auto) 0.4 % Neut % (Auto) 85.2 % Lymph % (Auto) 10.4 % [place] % (Auto) 3.9 % Eos % (Auto) 0.0 % Baso % (Auto) 0.1 % Immature Gran # (Auto) 0.08 H (0.00-0.02) K/uL Neut # (Auto) 18.00 H (1.4-6.5) K/uL Lymph # (Auto) 2.19 (1.2-3.4) K/uL [place] # (Auto) 0.82 H (0.11-0.59) K/uL Eos # (Auto) 0.00 (0-0.5) K/uL Baso # (Auto) 0.03 (0-0.2) K/uL PT 15.3 H (9.0-12.0) Seconds INR 1.5 H (0.9-1.1) APTT 29.6 (21.0-31.0) Seconds PTT Ratio 1.1 Sodium 130 L (136-145) mmol/L Potassium 3.8 (3.5-5.1) mmol/L Chloride 96 L (98-107) mmol/L Carbon Dioxide 23 (21-32) mmol/L Anion Gap 11.0 (3-11) BUN 48 H (7-18) mg/dl Creatinine 1.67 H (0.6-1.2) mg/dl Est Cr Clr Drug Dosing 36.4 ml/min Est GFR ( Amer) 36.8 Est GFR (Non-Af Amer) 31.8 BUN/Creatinine Ratio 28.7 H (10-20) Glucose 385 H* (70-99) mg/dl Lactate (0.4-2.0) mmol/L Calcium 7.9 L (8.5-10.1) mg/dl Magnesium 0.9 L* (1.8-2.4) mg/dl Total Bilirubin 1.4 H (0.2-1) mg/dl AST 26 (15-37) U/L ALT 36 (12-78) U/L Alkaline Phosphatase 145 H (45-117) U/L Ammonia (11-32) umol/L Total Creatine Kinase 487 H (26-192) U/L Troponin I 0.089 H* (0-0.045) ng/ml Total Protein 6.9 (6.4-8.2) gm/dl Albumin 2.8 L (3.4-5.0) gm/dl Globulin 4.1 H (2.5-4.0) gm/dl Albumin/Globulin Ratio 0.7 L (0.9-2) Beta-Hydroxybutyric Acd 1.50 (0.2-2.81) mg/dl Procalcitonin (0-0.5) ng/ml TSH 1.840 (0.300-4.500) uIu/ml 08/07/18 08/07/18 08/07/18 Range/Units 20:31 20:32 21:33 WBC (4.8-10.8) K/uL RBC (4.2-5.4) M/uL Hgb (12.0-16.0) g/dL Hct (37-47) % MCV (80-100) fL MCH (25-34) pg MCHC (32-36) g/dL RDW Std Deviation (36.4-46.3) fL RDW Coeff of [place] (11.5-14.5) % Plt Count (130-400) K/uL Immature Gran % (Auto) % Neut % (Auto) % Lymph % (Auto) % [place] % (Auto) % Eos % (Auto) % Baso % (Auto) % Immature Gran # (Auto) (0.00-0.02) K/uL Neut # (Auto) (1.4-6.5) K/uL Lymph # (Auto) (1.2-3.4) K/uL [place] # (Auto) (0.11-0.59) K/uL Eos # (Auto) (0-0.5) K/uL Baso # (Auto) (0-0.2) K/uL PT (9.0-12.0) Seconds INR (0.9-1.1) APTT (21.0-31.0) Seconds PTT Ratio Sodium (136-145) mmol/L Potassium (3.5-5.1) mmol/L Chloride (98-107) mmol/L Carbon Dioxide (21-32) mmol/L Anion Gap (3-11) BUN (7-18) mg/dl Creatinine (0.6-1.2) mg/dl Est Cr Clr Drug Dosing ml/min Est GFR ( Amer) Est GFR (Non-Af Amer) BUN/Creatinine Ratio (10-20) Glucose (70-99) mg/dl Lactate 2.6 H* (0.4-2.0) mmol/L Calcium (8.5-10.1) mg/dl Magnesium (1.8-2.4) mg/dl Total Bilirubin (0.2-1) mg/dl AST (15-37) U/L ALT (12-78) U/L Alkaline Phosphatase (45-117) U/L Ammonia (11-32) umol/L Total Creatine Kinase (26-192) U/L Troponin I Cancelled (0-0.045) ng/ml Total Protein (6.4-8.2) gm/dl Albumin (3.4-5.0) gm/dl Globulin (2.5-4.0) gm/dl Albumin/Globulin Ratio (0.9-2) Beta-Hydroxybutyric Acd (0.2-2.81) mg/dl Procalcitonin 0.61 H (0-0.5) ng/ml TSH (0.300-4.500) uIu/ml 08/08/18 08/08/18 Range/Units 00:37 00:37 WBC (4.8-10.8) K/uL RBC (4.2-5.4) M/uL Hgb (12.0-16.0) g/dL Hct (37-47) % MCV (80-100) fL MCH (25-34) pg MCHC (32-36) g/dL RDW Std Deviation (36.4-46.3) fL RDW Coeff of [place]rell (11.5-14.5) % Plt Count (130-400) K/uL Immature Gran % (Auto) % Neut % (Auto) % Lymph % (Auto) % [place] % (Auto) % Eos % (Auto) % Baso % (Auto) % Immature Gran # (Auto) (0.00-0.02) K/uL Neut # (Auto) (1.4-6.5) K/uL Lymph # (Auto) (1.2-3.4) K/uL [place] # (Auto) (0.11-0.59) K/uL Eos # (Auto) (0-0.5) K/uL Baso # (Auto) (0-0.2) K/uL PT (9.0-12.0) Seconds INR (0.9-1.1) APTT (21.0-31.0) Seconds PTT Ratio Sodium (136-145) mmol/L Potassium (3.5-5.1) mmol/L Chloride (98-107) mmol/L Carbon Dioxide (21-32) mmol/L Anion Gap (3-11) BUN (7-18) mg/dl Creatinine (0.6-1.2) mg/dl Est Cr Clr Drug Dosing ml/min Est GFR ( Amer) Est GFR (Non-Af Amer) BUN/Creatinine Ratio (10-20) Glucose (70-99) mg/dl Lactate 1.6 (0.4-2.0) mmol/L Calcium (8.5-10.1) mg/dl Magnesium (1.8-2.4) mg/dl Total Bilirubin (0.2-1) mg/dl AST (15-37) U/L ALT (12-78) U/L Alkaline Phosphatase (45-117) U/L Ammonia 63.0 H (11-32) umol/L Total Creatine Kinase (26-192) U/L Troponin I (0-0.045) ng/ml Total Protein (6.4-8.2) gm/dl Albumin (3.4-5.0) gm/dl Globulin (2.5-4.0) gm/dl Albumin/Globulin Ratio (0.9-2) Beta-Hydroxybutyric Acd (0.2-2.81) mg/dl Procalcitonin (0-0.5) ng/ml TSH (0.300-4.500) uIu/ml Imaging Data Radiologist's Impression: Radiology results as stated below per my review and the radiologist's interpretation: CT cervical spine wo con CLINICAL HISTORY: 67 years-old Female presenting with fall. TECHNIQUE: Multidetector CT of the cervical spine was performed without the use of intravenous contrast. IV contrast: None. One or more dose lowering techniques were used consistent with the principles of ALARA (as low as reasonably achievable), including automatic exposure control, mA or kV adjustment to individual patient size, and/or use of iterative reconstruction. COMPARISON: 07/19/2017. CT DOSE (mGy.cm): The estimated cumulative dose is 1206.90. FINDINGS: Electronic [employer] Designer topogram: Unremarkable. Slightly exaggerated cervical lordosis likely due to position and multilevel degenerative changes. Vertebral bodies maintain normal height and alignment. Intervertebral disc heights preserved. Multilevel facet arthropathy or erosive changes at the facet joints on the left at C4-5. The appearance is similar to prior. No acute fracture or subluxation. Advanced degenerative changes at the atlantodental articulation. No osseous spinal canal narrowing. Visualized portion of the skull base intact. Atherosclerosis noted. Lung apices clear. Paraspinal musculature within normal limits for age. IMPRESSION: 1. No acute osseous injury of the cervical spine. 2. Multilevel degenerative changes. Electronically signed by: José Miguel Drake M.D. 08/07/2018 9:[address] head/brain wo con CLINICAL HISTORY: 67 years-old Female presenting with fall. TECHNIQUE: Multidetector CT imaging of the head was performed without the use of intravenous contrast. IV contrast: None. One or more dose lowering techniques were used consistent with the principles of ALARA (as low as reasonably achiev able), including automatic exposure control, mA or kV adjustment to individual patient size, and/or use of iterative reconstruction. COMPARISON: 02/18/2018. CT DOSE (mGy.cm): The estimated cumulative dose is 1206.90 mGy.cm. FINDINGS: Electronic [employer] Designer topogram: Unremarkable. Proportional ventricular and sulcal prominence, likely age-related parenchymal volume loss. No hemorrhage. Brain parenchyma normal in appearance with preserved quinones-white differentiation. No acute territorial infarct. No mass effect or midline shift. No extra-axial fluid collection. Chronic sclerosis of maxillary sinus cervantes. Calvarium intact. IMPRESSION: 1. No acute intracranial abnormality. Electronically signed by: José Miguel Drake M.D. 08/07/2018 9:02 PM XR chest 1V portable CLINICAL HISTORY: 67 years-old Female presenting with weakness. TECHNIQUE: Portable supine AP view of the chest was obtained. COMPARISON: 06/07/2018. FINDINGS: Left subclavian implanted cardiac defibrillator with single lead to the right ventricular apex. Median sternotomy wires and bypass graft rings noted. Cardiac silhouette moderately enlarged. Pulmonary vascular prominence. Bronchial wall cuffing also suggested. Improved aeration of the right lung base. No new focal opacity. No large effusion or pneumothorax. Degenerative changes of the thoracic spine. Upper abdomen normal. IMPRESSION: 1. Cardiomegaly with volume overload and mild congestive change. No pulmonary edema. 2. Improved aeration at the right lung base in comparison the prior. Electronically signed by: José Miguel Drake M.D. 08/07/2018 10:39 PM XR lumbar spine min 4V routine CLINICAL HISTORY: 67 years-old Female presenting with fall. TECHNIQUE: Frontal, bilateral oblique, lateral, and cone-down lateral views of the lumbar spine were obtained. COMPARISON: 01/22/2013. FINDINGS: Trace levoscoliosis centered at L3-4. Otherwise grossly preserved lumbar lordosis. Vertebral bodies maintain normal height and alignment. Intervertebral disc height loss at T11-12. Osteophytosis at L2-3 and L3-4. Facet arthropathy also noted in the lower lumbar spine. Suspected osseous neural foraminal narrowing from L3-4 through L5-S1. No radiographic evidence of a compression deformity or acute subluxation. Atherosclerosis. Nonobstructive bowel gas pattern. Moderate stool burden. IMPRESSION: Multilevel degenerative changes. No radiographic evidence of acute osseous injury. Electronically signed by: José Miguel Drake M.D. 08/07/2018 10:37 PM XR sacrum coccyx min 2V CLINICAL HISTORY: 67 years-old Female presenting with fall. TECHNIQUE: 3 views of the sacrum and coccyx were obtained. COMPARISON: CT from 03/11/2018. FINDINGS: Sacrum iliac joints symmetric and congruent. Arcuate lines of the sacrum grossly intact. Sacrococcygeal junction congruent. No displaced fracture. No change in alignment of the coccyx in comparison to prior. IMPRESSION: No radiographic evidence of acute osseous injury. Electronically signed by: José Miguel Drake M.D. 08/07/2018 10:40 PM ECG Data Attestation: I personally reviewed and interpreted this ECG as follows: Indication: other (fall) Rate (beats per minute): 102 Rhythm: sinus tachycardia Findings: + other (low voltage, poor R wave progression) Comparison ECG Date: from (06/07/18) Change: no significant change Blood Pressure Blood Pressure Findings: Normal blood pressure MDM Narrative The patient is a 67-year-old female who presented to the emergency department after a fall. The patient was on a home leave from a fpc placement to help arrange things at her home. She was found on the floor by family members. She complained of back pain as well as sacral pain. The patient was very ill appearing. She was treated with IV fluids as well as IV magnesium replacement. The patient had multiple electrolyte abnormalities and an elevated white blood cell count. But cultures were obtained. I discussed the patient's laboratory and radiographic studies with her. Because of the findings I also discussed her case with the on-call [facility] hospitalist group. They have agreed to evaluate the patient in the emergency department for further management and disposition. Impression & Plan Hypomagnesemia, Dehydration, Fall, Hyperglycemia, Weakness, Cutaneous candidiasis Discharge Plan Visit Data Chief Complaint: Pain (Generalized) Stated Complaint: TAILBONE PAIN, & ABCESSESS BY HER RECTUM ED Provider: Eliazar Lobo Discharge Problem: Hypomagnesemia, Dehydration, Fall, Hyperglycemia, Weakness, Cutaneous candidi asis Patient Disposition: Being Evaluated by Hospitalist Forms Stand Alone Forms: My [facility] Prescriptions Prescriptions: No Action carvedilol [Coreg] 6.25 mg tablet 6.25 mg PO BID RF: 0 albuterol sulfate 90 mcg/actuation Hfa Aerosol Inhaler 1 - 2 puff INHALATION .Q4-6HRS PRN (Reason: Shortness Of Breath Or Wheezing) RF: 0 calcium citrate 200 mg (950 mg) Tablet 400 mg PO BID RF: 0 ergocalciferol (vitamin D2) 50,000 unit Capsule 50,000 units PO WK RF: 0 Eliquis 5 mg Tablet 5 mg PO BID RF: 0 ethacrynic acid 25 mg tablet 25 mg PO BID RF: 0 venlafaxine 150 mg Capsule,Extended Release 24hr 150 mg PO DAILY RF: 0 pramipexole 0.5 mg Tablet 0.75 mg PO HS RF: 0 mirtazapine 30 mg Tablet 30 mg PO HS RF: 0 levothyroxine 150 mcg tablet 150 mcg PO DAILY RF: 0 potassium chloride 20 mEq Tablet Extended Release 20 meq PO BID RF: 0 Trulicity 0.75 mg/0.5 mL pen injector 0.75 mg subcut WK RF: 0 multivitamin Tablet 1 tab PO DAILY RF: 0 Probiotic 3 billion cell Capsule 1 cap PO BID RF: 0 Lyrica 150 mg capsule 150 mg PO BID RF: 0 magnesium oxide 400 mg magnesium Tablet 400 mg PO TID RF: 0 Referrals Referrals: Swapnil Pearson [Primary Care Provider] - Discharge Problem: Fall Qualifiers: Encounter type: initial encounter Qualified Code(s): W19.XXXA - Unspecified fall, initial encounter The scribe's documentation has been prepared under my direction and personally reviewed by me in its entirety. I confirm that the note above accurately reflects all work, treatment, procedures, and medical decision making performed by me.
[2018-08-07] MEDS ORDERED: SODIUM CHLORIDE 0.9% 1000ML 1,000 ML IV SCH (20:15)
--- NOTE | 2018-08-07 21:04 | CT Scan Report ---
CT head/brain wo con CLINICAL HISTORY: 67 years-old Female presenting with fall. TECHNIQUE: Multidetector CT imaging of the head was performed without the use of intravenous contrast . IV contrast: None. One or more dose lowering techniques were used consistent with the principles of ALARA (as low as reasonably achievable), including automatic exposure control, mA or kV adjustment t o individual patient size, and/or use of iterative reconstruction. COMPARISON: 02/18/2018. CT DOSE (mGy.cm): The estimated cumulative dose is 1206.90 mGy.cm. FINDINGS: Ophthalmologist topogram: Unremarkable. Proportional ventricular and sulcal prominence, likely age-related parenchymal volume loss. No hemorr alejandro. Brain parenchyma normal in appearance with preserved quinones-white differentiation. No acute keyla torial infarct. No mass effect or midline shift. No extra-axial fluid collection. Chronic sclerosis o f maxillary sinus cervantes. Calvarium intact. IMPRESSION: 1. No acute intracranial abnormality. Electronically signed by: José Miguel Drake M.D. 08/07/2018 9:02 PM
[2018-08-07 21:05] LABS: Hematocrit (blood only) 33.1 % (37-47); Hemoglobin 10.8 g/dL (12.0-16.0); Mean Corpuscular Hgb Conc 32.6 g/dL (32-36); Mean Corpuscular Volume 73.2 fL (80-100); Platelet Count 157 K/uL (130-400); RDW Coefficient of Variation 19.2 % (11.5-14.5); RDW Standard Deviation 51.5 fL (36.4-46.3); Red Blood Count 4.52 M/uL (4.2-5.4); White Blood Count 21.12 K/uL (4.8-10.8)
[2018-08-07 21:15] LABS: INR 1.5 (0.9-1.1); Partial Thromboplastin Ratio 1.1; Partial Thromboplastin Time 29.6 Seconds (21.0-31.0); Prothrombin Time 15.3 Seconds (9.0-12.0)
--- NOTE | 2018-08-07 21:19 | CT Scan Report ---
CT cervical spine wo con CLINICAL HISTORY: 67 years-old Female presenting with fall. TECHNIQUE: Multidetector CT of the cervical spine was performed without the use of intravenous contra st. IV contrast: None. One or more dose lowering techniques were used consistent with the principles of ALARA (as low as reasonably achievable), including automatic exposure control, mA or kV adjustment to individual patient size, and/or use of iterative reconstruction. COMPARISON: 07/19/2017. CT DOSE (mGy.cm): The estimated cumulative dose is 1206.90. FINDINGS: Barkeeper topogram: Unremarkable. Slightly exaggerated cervical lordosis likely due to position and multilevel degenerative changes. Ve rtebral bodies maintain normal height and alignment. Intervertebral disc heights preserved. Multileve l facet arthropathy or erosive changes at the facet joints on the left at C4-5. The appearance is sim ilar to prior. No acute fracture or subluxation. Advanced degenerative changes at the atlantodental a rticulation. No osseous spinal canal narrowing. Visualized portion of the skull base intact. Atherosc lerosis noted. Lung apices clear. Paraspinal musculature within normal limits for age. IMPRESSION: 1. No acute osseous injury of the cervical spine. 2. Multilevel degenerative changes. Electronically signed by: José Miguel Drake M.D. 08/07/2018 9:17 PM
[2018-08-07 22:07] LABS: Basophils # (auto) 0.03 K/uL (0-0.2); Basophils % (auto) 0.1 %; Immature Granulocytes # (auto) 0.08 K/uL (0.00-0.02); Immature Granulocytes % (auto) 0.4 %; Lymphocytes # (auto) 2.19 K/uL (1.2-3.4); Lymphocytes % (auto) 10.4 %; Monocytes # (auto) 0.82 K/uL (0.11-0.59); Monocytes % (auto) 3.9 %; Neutrophils % (auto) 85.2 %
[2018-08-07 22:08] LABS: Albumin Level 2.8 gm/dl (3.4-5.0); Bilirubin,Total 1.4 mg/dl (0.2-1)
[2018-08-07 22:09] LABS: Albumin Globulin Ratio 0.7 (0.9-2); BUN Creatinine Ratio 28.7 (10-20); Calcium 7.9 mg/dl (8.5-10.1); Creatinine Clr Calc Pharmacy 36.4 ml/min; Est GFR (African American) 36.8; Est GFR (Non-African American) 31.8; Globulin 4.1 gm/dl (2.5-4.0); Magnesium 0.9 mg/dl (1.8-2.4); Potassium 3.8 mmol/L (3.5-5.1); Total Protein 6.9 gm/dl (6.4-8.2); Troponin I 0.089 ng/ml (0-0.045)
[2018-08-07 22:19] LABS: Beta-Hydroxybutyrate 1.5 mg/dl (0.2-2.81)
[2018-08-07] MEDS ORDERED: SODIUM CHLORIDE 0.9% 1000ML 1,000 ML IV ONE (22:23)
--- NOTE | 2018-08-07 22:38 | XRay Report ---
XR lumbar spine min 4V routine CLINICAL HISTORY: 67 years-old Female presenting with fall. TECHNIQUE: Frontal, bilateral oblique, lateral, and cone-down lateral views of the lumbar spine were obtained. COMPARISON: 01/22/2013. FINDINGS: Trace levoscoliosis centered at L3-4. Otherwise grossly preserved lumbar lordosis. Vertebral bodies m aintain normal height and alignment. Intervertebral disc height loss at T11-12. Osteophytosis at L2-3 and L3-4. Facet arthropathy also noted in the lower lumbar spine. Suspected osseous neural foraminal narrowing from L3-4 through L5-S1. No radiographic evidence of a compression deformity or acute subl uxation. Atherosclerosis. Nonobstructive bowel gas pattern. Moderate stool burden. IMPRESSION: Multilevel degenerative changes. No radiographic evidence of acute osseous injury. Electronically signed by: José Miguel Drake M.D. 08/07/2018 10:37 PM
[2018-08-07] MEDS: MAGNESIUM SULFATE / D5W 1 GM/100 ML BAG IV SCH ×2 (22:39→23:37)
--- NOTE | 2018-08-07 22:40 | XRay Report ---
XR chest 1V portable CLINICAL HISTORY: 67 years-old Female presenting with weakness. TECHNIQUE: Portable supine AP view of the chest was obtained. COMPARISON: 06/07/2018. FINDINGS: Left subclavian implanted cardiac defibrillator with single lead to the right ventricular apex. Media n sternotomy wires and bypass graft rings noted. Cardiac silhouette moderately enlarged. Pulmonary va scular prominence. Bronchial wall cuffing also suggested. Improved aeration of the right lung base. N o new focal opacity. No large effusion or pneumothorax. Degenerative changes of the thoracic spine. U pper abdomen normal. IMPRESSION: 1. Cardiomegaly with volume overload and mild congestive change. No pulmonary edema. 2. Improved aeration at the right lung base in comparison the prior. Electronically signed by: José Miguel Draek M.D. 08/07/2018 10:39 PM
--- NOTE | 2018-08-07 22:41 | XRay Report ---
XR sacrum coccyx min 2V CLINICAL HISTORY: 67 years-old Female presenting with fall. TECHNIQUE: 3 views of the sacrum and coccyx were obtained. COMPARISON: CT from 03/11/2018. FINDINGS: Sacrum iliac joints symmetric and congruent. Arcuate lines of the sacrum grossly intact. Sacrococcyge al junction congruent. No displaced fracture. No change in alignment of the coccyx in comparison to p rior. IMPRESSION: No radiographic evidence of acute osseous injury. Electronically signed by: José Miguel Drake M.D. 08/07/2018 10:40 PM
[2018-08-07] MEDS ORDERED: MAGNESIUM SULFATE / D5W 1 GM/100 ML BAG IV STA (23:52)
[2018-08-08] MEDS ORDERED: NORMOSOL-R 1,000 ML IV SCH (00:45)
[2018-08-08] MEDS ORDERED: CEFEPIME 2,000 MG in SYRINGE 7.5 ML IV STA (01:26)
[2018-08-08] MEDS ORDERED: metroNIDAZOLE 500 MG/100 ML BAG IV STA (01:55)
--- NOTE | 2018-08-08 01:56 | History & Physical Report ---
Date of Service August 08, 2018 Assessment & Plan (1) Encephalopathy: Multifactorial : Severe sepsis (SIRS with lactic acidosis, ARF on CRI) potential sources : Possible UTI (bilateral perinephric stranding on CT initial read), R groin cellulitis, diarrhea rule out C. difficile Hepatic encephalopathy (possible cirrhosis, heterogeneous appearance of liver on prior imaging studies) Chronic CHF, some congestion on x-ray although patient on the dry side. CAD status post CABG hx ICD PAF on Eliquis, NSR hypertension, BP on the lower side DM 2, insulin requiring, reasonable control as of recent inpatient hemoglobin A1c of 7.6 last May 2018 chronic anemia secondary to CKD, hemoglobin at baseline past tobacco/alcohol abuse as per records history MRSA bacteremia Medical telemetry Cultures Follow UA, IV Cefepime for possible UTI IV Doxycycline for groin cellulitis Stool C. difficile, IV Flagyl 1 dose for possible C. difficile, oral vancomycin course if C. difficile positive follow lactic acid, monitor creatinine response to gentle IV hydration given pulmonary congestion x-ray Lactulose, follow ammonia level GI consult RE possible hepatic encephalopathy, possible new cirrhosis diagnosis PT OT eval Basal insulin, ISS BG goal 1 40-180, carb count coverage DVT prophylaxis. Eliquis dose adjusted for renal function Full code as per sister. Patient sisters requesting updates from providers. Ms. Italia Wheat, contact #[phone]. .Noemi Raymon, [phone]. Addendum : UA results noted, DC Cefepime History of Present Illness Chief Complaint: Tailbone pain as per records Primary Care Provider: Swapnil Pearson History obtained from patient, family, and records. Limited history from patient secondary to obtunded state. Medical history significant for CHF (EF 55-60%, TTE 2018), history of ICD, CAD status post CABG, PAF on Eliquis, hypertension, hyperlipidemia, mood disorder, DM 2, insulin requiring, CRI (baseline creatinine 1.3), chronic anemia (baseline hemoglobin 10-11), past tobacco/alcohol abuse, hypothyroidism, history MRSA bacteremia as per records, history of toe osteomyelitis Recent confinement May 2018 for BLANCA. Patient seen by sister 2 days ago. Patient complaining of burning discomfort in the right groin and diarrhea symptoms. Patient complaining of tailbone pain today. At the ER, patient given ketoconazole. Medical History as above Surgical History : Hysterectomy, CABG, ICD, shoulder surgery, YENI, appendectomy, Achilles tendon repair Family History : Diabetes, heart disease, COPD, skin cancer Personal/Social history : Past tobacco/alcohol abuse as per sister, pen[facility]iary resident Allergies Allergy/AdvReac Type Severity Reaction Status Date / Time clindamycin Allergy Severe RASH, Verified 06/16/18 10:10 DELUSIONAL, CONVULSIONS Egg Derived Allergy Severe ANAPHYLAXIS Verified 06/16/18 10:10 furosemide Allergy Severe ANAPHYLAXIS Verified 06/16/18 10:10 rosuvastatin Allergy Severe LEG Unverified 06/16/18 10:10 WEAKNESS simvastatin Allergy Severe LEG Unverified 06/16/18 10:10 WEAKNESS Bactrim Allergy Intermediate RASH Verified 04/13/17 16:00 sulfamethoxazole Allergy Intermediate RASH Verified 06/16/18 10:10 trimethoprim Allergy Intermediate RASH Verified 06/16/18 10:10 amoxicillin Allergy Unknown . Verified 06/16/18 10:10 atorvastatin Allergy Unknown acute Verified 06/16/18 10:10 renal failure clavulanic acid Allergy Unknown . Verified 06/16/18 10:10 egg Allergy Unknown _ Verified 06/16/18 10:10 latex Allergy Unknown RASH Verified 06/16/18 10:10 losartan Allergy Unknown Unknown Verified 08/07/18 21:01 Penicillins Allergy Unknown unknown Verified 06/16/18 10:10 pravastatin Allergy Unknown Unknown Verified 08/07/18 21:01 triamcinolone Allergy Unknown RASH Verified 06/16/18 10:10 nickel Allergy Redness of Verified 06/16/18 10:10 Skin capsaicin AdvReac Severe SKIN Verified 06/16/18 10:10 SLOTHED FROM HEEL diclofenac AdvReac Severe SKIN Verified 06/16/18 10:10 SLOTHED FROM HEEL Diclopak AdvReac Severe SKIN Verified 04/13/17 16:00 SLOTHED FROM HEEL isopropyl alcohol AdvReac Severe SKIN Verified 06/16/18 10:10 SLOTHED FROM HEEL propylene glycol AdvReac Severe SKIN Verified 06/16/18 10:10 SLOTHED FROM HEEL acetaminophen AdvReac Mild VOMITING Verified 06/16/18 10:10 Home Medications Home Medications Medication Instructions Recorded Confirmed Type Eliquis 5 mg PO BID 06/05/18 08/07/18 History Probiotic 1 cap PO BID 06/05/18 08/07/18 History Trulicity 0.75 mg SUBCUT WK 06/05/18 08/07/18 History albuterol sulfate 1 - 2 puff INHALATION .Q4-6HRS PRN 06/05/18 08/07/18 History calcium citrate 400 mg PO BID 06/05/18 08/07/18 History carvedilol [Coreg] 6.25 mg PO BID 06/05/18 08/07/18 History ergocalciferol (vitamin D2) 50,000 units PO WK 06/05/18 08/07/18 History ethacrynic acid 25 mg PO BID 06/05/18 08/07/18 History levothyroxine 150 mcg PO DAILY 06/05/18 08/07/18 History mirtazapine 30 mg PO HS 06/05/18 08/07/18 History multivitamin 1 tab PO DAILY 06/05/18 08/07/18 History potassium chloride 20 meq PO BID 06/05/18 08/07/18 History pramipexole 0.75 mg PO HS 06/05/18 08/07/18 History venlafaxine 150 mg PO DAILY 06/05/18 08/07/18 History magnesium oxide 400 mg PO TID 08/07/18 08/07/18 History pregabalin [Lyrica] 150 mg PO BID 08/07/18 08/07/18 History Past Med/Surg History Medical History Paroxysmal atrial fibrillation (Chronic) History of hysterectomy (Chronic) Thrombophlebitis arm (Resolved) Staphylococcus aureus septicemia (Resolved) 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) Pleural effusion (Resolved) Toe ulcer due to DM (Acute) 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) Depression (Chronic) DM type 2 (diabetes mellitus, type 2) (Chronic) Neuropathy (Chronic) Hypothyroid (Chronic) CAD (coronary artery disease) (Chronic) Ischemic cardiomyopathy (Chronic) Hyperlipidemia (Chronic) GERD (gastroesophageal reflux disease) (Chronic) KAVIN on CPAP (Chronic) Surgical History H/O Achilles tendon repair (Chronic) AICD (automatic cardioverter/defibrillator) present (Chronic) S/P rotator cuff repair (Chronic) S/P CABG x 4 (Chronic) Family History Father Myocardial infarction Social History Preferred Language: [place] Communication Ability: Effective Fib[employer] Jointer Required: No Beliefs That Will Affect Care: None Current Living Situation: Alone Feels Safe at Home: Yes Safety Concerns: Feels Safe At This Time Smoking Status: Former smoker Second Hand Exposure: No Hx Alcohol Use: No Hx Substance Use: No Review of Systems Review of Systems: Could not be reliably obtained Physical Exam Physical Exam: GENERAL: Obtunded, no respiratory distress, obese SKIN: Pallor, warm HEENT: Pale palpebral conjunctivae, no ptosis, dry buccal mucosa NECK : Supple, short neck no tenderness CHEST : Decreased breath sounds, no tenderness HEART : RRR, no obvious murmurs ABDOMEN: Some distention, nontender, erythematous induration, right inguinal area EXTREMITIES : No LE swelling/tenderness, dressing on the left foot, no other conspicuous deformities noted NEUROLOGIC : Obtunded, no facial asymmetry, gait and stance not assessed Results & Data Vital Signs (Past 12 Hours) Vital Signs Temp Pulse Pulse Resp BP BP Pulse Ox 08/08/18 01:04 89 20 110/49 L 98 08/08/18 00:41 87 20 115/60 99 08/07/18 23:03 91 H 22 113/74 99 08/07/18 22:34 95 H 20 98 08/07/18 22:32 95 H 29 H 100/55 L 97 08/07/18 22:10 94 H 24 100 08/07/18 22:01 93 H 36 H 120/66 100 08/07/18 22:00 94 H 20 100 08/07/18 21:50 95 H 19 100 08/07/18 21:40 95 H 21 100 08/07/18 21:31 96 H 21 93/52 L 99 08/07/18 21:30 95 H 20 99 08/07/18 21:20 94 H 18 100 08/07/18 21:10 97 H 17 97 08/07/18 21:05 94 H 25 H 98 08/07/18 21:01 95 H 22 109/66 100 08/07/18 20:08 95 H 20 92 08/07/18 20:01 37.3 C 102 H 22 105/78 97 Laboratory Results Laboratory Results WBC 21.12 K/uL (4.8-10.8) H 08/07/18 20: RBC 4.52 M/uL (4.2-5.4) 08/07/18 20: Hgb 10.8 g/dL (12.0-16.0) L 08/07/18 20: Hct 33.1 % (37-47) L 08/07/18 20: MCV 73.2 fL (80-100) L 08/07/18 20: MCH 23.9 pg (25-34) L 08/07/18 20: MCHC 32.6 g/dL (32-36) 08/07/18 20: RDW Std Deviation 51.5 fL (36.4-46.3) H 08/07/18 20: RDW Coeff of Montrell 19.2 % (11.5-14.5) H 08/07/18 20: Plt Count 157 K/uL (130-400) 08/07/18 20: Immature Gran % (Auto) 0.4 % 08/07/18 20: Neut % (Auto) 85.2 % 08/07/18 20: Lymph % (Auto) 10.4 % 08/07/18 20: Vilas % (Auto) 3.9 % 08/07/18 20: Eos % (Auto) 0.0 % 08/07/18 20: Baso % (Auto) 0.1 % 08/07/18 20: Immature Gran # (Auto) 0.08 K/uL (0.00-0.02) H 08/07/18 20: Neut # (Auto) 18.00 K/uL (1.4-6.5) H 08/07/18 20: Lymph # (Auto) 2.19 K/uL (1.2-3.4) 08/07/18 20: Vilas # (Auto) 0.82 K/uL (0.11-0.59) H 08/07/18 20: Eos # (Auto) 0.00 K/uL (0-0.5) 08/07/18 20: Baso # (Auto) 0.03 K/uL (0-0.2) 08/07/18 20:31 PT 15.3 Seconds (9.0-12.0) H 08/07/18 20:31 INR 1.5 (0.9-1.1) H 08/07/18 20:31 APTT 29.6 Seconds (21.0-31.0) 08/07/18 20:31 PTT Ratio 1.1 08/07/18 20:31 Sodium 130 mmol/L (136-145) L 08/07/18 20:31 Potassium 3.8 mmol/L (3.5-5.1) 08/07/18 20:31 Chloride 96 mmol/L (98-107) L 08/07/18 20:31 Carbon Dioxide 23 mmol/L (21-32) 08/07/18 20:31 Anion Gap 11.0 (3-11) 08/07/18 20:31 BUN 48 mg/dl (7-18) H 08/07/18 20:31 Creatinine 1.67 mg/dl (0.6-1.2) H 08/07/18 20:31 Est Cr Clr Drug Dosing 36.4 ml/min 08/07/18 20:31 Est GFR ( Amer) 36.8 08/07/18 20:31 Est GFR (Non-Af Amer) 31.8 08/07/18 20:31 BUN/Creatinine Ratio 28.7 (10-20) H 08/07/18 20:31 Glucose 385 mg/dl (70-99) H* 08/07/18 20:31 Lactate 1.6 mmol/L (0.4-2.0) 08/08/18 00:37 Calcium 7.9 mg/dl (8.5-10.1) L 08/07/18 20:31 Magnesium 0.9 mg/dl (1.8-2.4) L* 08/07/18 20:31 Total Bilirubin 1.4 mg/dl (0.2-1) H 08/07/18 20:31 AST 26 U/L (15-37) 08/07/18 20:31 ALT 36 U/L (12-78) 08/07/18 20:31 Alkaline Phosphatase 145 U/L (45-117) H 08/07/18 20:31 Ammonia 63.0 umol/L (11-32) H 08/08/18 00:37 Total Creatine Kinase 487 U/L (26-192) H 08/07/18 20:31 Troponin I 0.089 ng/ml (0-0.045) H* 08/07/18 20:31 Total Protein 6.9 gm/dl (6.4-8.2) 08/07/18 20:31 Albumin 2.8 gm/dl (3.4-5.0) L 08/07/18 20:31 Globulin 4.1 gm/dl (2.5-4.0) H 08/07/18 20:31 Albumin/Globulin Ratio 0.7 (0.9-2) L 08/07/18 20:31 Beta-Hydroxybutyric Acd 1.50 mg/dl (0.2-2.81) 08/07/18 20:31 Procalcitonin 0.61 ng/ml (0-0.5) H 08/07/18 20:32 TSH 1.840 uIu/ml (0.300-4.500) 08/07/18 20:31 Diagnostic Findings Chest x-ray: 1. Cardiomegaly with volume overload and mild congestive change. No pulmonary edema. 2. Improved aeration at the right lung base in comparison the prior. CT head: No acute pathology CT abdomen pelvis initial read: No rectal wall thickening. Mild perihepatic ascites. Gallbladder distention. Gallstones dense atherosclerotic plaque aorta. Post hysterectomy, left adnexal mass similar to prior. Nonspecific perinephric stranding. Cardiomegaly. Anasarca EKG as per my interpretation: Rate 105, sinus tachycardia, LAD, LAFB, T wave flattening lateral leads, low voltage
[2018-08-08] MEDS ORDERED: NORMOSOL-R 1,000 ML IV STA (01:59)
[2018-08-08] MEDS ORDERED: PROMETHAZINE HCL 12.5 MG in SODIUM CHLORIDE 0.9% 50 ML IV PRN (02:00)
[2018-08-08] MEDS ORDERED: NITROGLYCERIN SL 0.4 MG/TAB TAB SL PRN (02:00)
[2018-08-08] MEDS ORDERED: ACETAMINOPHEN 325 MG TAB PO PRN (02:00)
[2018-08-08] MEDS ORDERED: CEFEPIME 2,000 MG/20 ML VIAL ONE (02:11)
[2018-08-08] MEDS ORDERED: INSULIN GLARGINE SOLOSTAR 100 UNITS/ML 3 ML PEN SC STA (02:14)
[2018-08-08] MEDS ORDERED: LACTULOSE 200 GM, WATER, STERILE IRRIG 700 ML, BARCODE IDENTIFIER 1 EA PR STA (02:59)
[2018-08-08] MEDS ORDERED: DOXYCYCLINE HYCLATE 100 MG in DEXTROSE 5% 100 ML IV STA (02:59)
[2018-08-08] MEDS ORDERED: GLUCAGON FOR INJ 1 MG VIAL SQ PRN (02:59)
[2018-08-08] MEDS ORDERED: DEXTROSE 50% 50 ML SYRINGE IV PRN (02:59)
[2018-08-08] MEDS ORDERED: GLUCOSE 40% GEL 15 GM TUBE PO PRN (02:59)
[2018-08-08] MEDS ORDERED: GLUCOSE 10 TABS/TUBE PO PRN (02:59)
[2018-08-08] MEDS: INSULIN ASPART 100 UNITS/ML 3 ML PEN SC SCH ×5 (03:29→20:43)
[2018-08-08] MEDS: MAGNESIUM SULFATE / D5W 1 GM/100 ML BAG IV SCH ×3 (03:36→05:34)
[2018-08-08] MEDS: MICONAZOLE NITRATE POWDER 43 GM EXT SCH ×3 (04:27→20:43)
[2018-08-08] MEDS ORDERED: LACTULOSE SYRUP 30 GM/45 ML UDP PO STA (04:48)
[2018-08-08] MEDS: LEVOTHYROXINE SODIUM 150 MCG TABLET PO SCH (05:38)
[2018-08-08 06:28] LABS: Appearance Urine Clear (Clear); Bacteria Urine Automated Negative (Negative); Blood Urine Negative (Negative); Color Urine Dark Yellow; Epithelial Cell Urine Auto 0-5 /lpf (0-5); Glucose Urine UA Negative (Negative); Ketones Urine Negative (Negative); Leukocyte Esterase Urine Negative (Negative); Nitrite Urine Negative (Negative); Protein Urine 1+ (Negative); Specific Gravity Urine 1.021 (1.000-1.030); Urobilinogen Urine Negative (Negative)
[2018-08-08 06:31] LABS: Bilirubin Urine Negative (Negative); Ictotest Urine Negative (Negative)
[2018-08-08 06:39] LABS: Mean Corpuscular Hgb Conc 33.3 g/dL (32-36)
--- NOTE | 2018-08-08 06:43 | CT Scan Report ---
CT SCAN OF THE ABDOMEN AND PELVIS WITHOUT CONTRAST CLINICAL HISTORY: rectal pain COMPARISON STUDY: February 2018 TECHNIQUE: CT scan of the abdomen and pelvis was performed from the lung bases to the proximal femurs . Images are reviewed in the axial, sagittal, and coronal planes. IV contrast was not administered fo r this examination. A dose lowering technique was utilized adhering to the principles of ALARA. CT DOSE: 1340.09 mGy.cm FINDINGS: Lower chest: The heart is enlarged. There is a small right pleural effusion. There is interstitial th ickening. There is respiratory motion artifact. Liver: The unenhanced liver is normal in size, contour, and attenuation. There is no intrahepatic tory iary ductal dilatation. There is trace perihepatic fluid. Gallbladder: Cholelithiasis. The gallbladder is distended. Spleen: Normal in size and attenuation. Pancreas: Unremarkable. Adrenal glands: There is bilateral adrenal gland thickening. Kidneys: There is bilateral perinephric stranding. No renal, ureteral, or bladder calculi are visuali zed. Bowel: There are no transition zones indicate bowel obstruction. There is no evidence of acute divert iculitis. The appendix is not visualized with certainty. There are no findings to indicate acute appe ndicitis. Peritoneum: There is trace perihepatic fluid. There is trace free pelvic fluid. There is no free intr aperitoneal air. There is a tiny fat-containing umbilical hernia. Vasculature: There are extensive atheromatous changes within the aorta and iliac and branch vessels. Adenopathy: None. Pelvic viscera: There is a stable 5 cm soft tissue density within the pelvis to the left of midline. Assuming a prior hysterectomy, this is likely ovarian. A congenital uterine anomaly could potentially appear similar. Skeletal structures: There is diffuse body wall edema suggesting anasarca IMPRESSION: 1. No evidence of bowel obstruction. No evidence of free air 2. No renal, ureteral, or bladder calculi identified 3. Distended gallbladder. Cholelithiasis. 4. Trace ascites 5. Anasarca Electronically signed by: Enrique Kumar M.D. 08/08/2018 6:42 AM
[2018-08-08 06:52] LABS: Mean Corpuscular Volume 73.3 fL (80-100); RDW Coefficient of Variation 19.2 % (11.5-14.5); RDW Standard Deviation 51.5 fL (36.4-46.3); Red Blood Count 4.09 M/uL (4.2-5.4); White Blood Count 22.08 K/uL (4.8-10.8)
[2018-08-08 07:07] LABS: Platelet Count 149 K/uL (130-400)
[2018-08-08 07:09] LABS: Basophils # (auto) 0.04 K/uL (0-0.2); Basophils % (auto) 0.2 %; Immature Granulocytes % (auto) 0.5 %; Lymphocytes % (auto) 8.2 %; Monocytes # (auto) 1.27 K/uL (0.11-0.59); Monocytes % (auto) 5.8 %; Neutrophils # (auto) 18.87 K/uL (1.4-6.5); Neutrophils % (auto) 85.3 %; Platelet Estimate Normal (Normal)
[2018-08-08 07:22] LABS: Albumin Globulin Ratio 0.7 (0.9-2); Albumin Level 2.6 gm/dl (3.4-5.0); BUN Creatinine Ratio 24.2 (10-20); Bilirubin,Total 1.2 mg/dl (0.2-1); Calcium 7.3 mg/dl (8.5-10.1); Creatinine Clr Calc Pharmacy 28.7 ml/min; Est GFR (African American) 29.1; Est GFR (Non-African American) 25.1; Globulin 3.9 gm/dl (2.5-4.0); Magnesium 2.4 mg/dl (1.8-2.4); Potassium 3.5 mmol/L (3.5-5.1); Total Protein 6.5 gm/dl (6.4-8.2)
[2018-08-08] MEDS: LACTOBACILLUS ACIDOPHILUS (FLORANEX) TAB PO SCH ×2 (07:31→20:43)
[2018-08-08] MEDS: MULTIVITAMIN TAB PO SCH (07:32)
[2018-08-08] MEDS: CARVEDILOL 3.125 MG TAB PO SCH ×3 (07:32→20:44)
[2018-08-08] MEDS: APIXABAN 2.5 MG TAB PO SCH ×2 (07:32→20:44)
[2018-08-08] MEDS: VENLAFAXINE HCL XR 150 MG CAPXR PO SCH (07:32)
[2018-08-08 07:34] LABS: Beta-Hydroxybutyrate 0.99 mg/dl (0.2-2.81)
[2018-08-08] MEDS ORDERED: CEFEPIME CONSULT ACTIVE PRN (09:00)
[2018-08-08] MEDS ORDERED: VANCOMYCIN CONSULT ACTIVE PRN (09:26)
[2018-08-08] MEDS ORDERED: VANCOMYCIN HCL 1,000 MG in SODIUM CHLORIDE 0.9% 250 ML IV SCH (09:30)
--- NOTE | 2018-08-08 10:32 | Infectious Disease Consult ---
Date of Consultation August 08, 2018 Assessment & Plan (1) MRSA (methicillin resistant Staphylococcus aureus) septicemia: 67-year-old female with osteomyelitis of the toe now admitted with MRSA sepsis. Agree with use of IV vancomycin pending final sensitivity data, suspect she will need prolonged IV antibiotic repeat. Will require echocardiogram, and worried because of indwelling pacer/ICD with previous bout of staph aureus bacteremia. Will discuss with all involved. Will follow. (2) Acute osteomyelitis of toe of left foot: History of Present Illness Reason for Consultation: Gram-positive cocci in blood culture Attending Physician: Jelly Murray MD History of Present Illness 57-year-old female with history of type 2 diabetes mellitus, neuropathy, coronary artery disease, hypothyroidism, status post AICD placement, previous episodes of staph sepsis, followed at the wound care center for open wound left foot with recent finding of osteomyelitis, who is now admitted to the hospital with several days of worsening buttock pain after suffering a fall, as well as increasing confusion, worsening toe infection, and fever. Has now been found to have positive blood cultures for methicillin resistant staph aureus. Has been started on vancomycin which she is tolerated without apparent difficulty. Menta l status has improved since admission. Complaining of pain in her buttocks at present, 2 out of 10 in intensity. No increase in cough, no headaches, no rash. Allergies Allergy/AdvReac Type Severity Reaction Status Date / Time clindamycin Allergy Severe RASH, Verified 06/16/18 10:10 DELUSIONAL, CONVULSIONS Egg Derived Allergy Severe ANAPHYLAXIS Verified 06/16/18 10:10 furosemide Allergy Severe ANAPHYLAXIS Verified 06/16/18 10:10 rosuvastatin Allergy Severe LEG Unverified 06/16/18 10:10 WEAKNESS simvastatin Allergy Severe LEG Unverified 06/16/18 10:10 WEAKNESS Bactrim Allergy Intermediate RASH Verified 04/13/17 16:00 sulfamethoxazole Allergy Intermediate RASH Verified 06/16/18 10:10 trimethoprim Allergy Intermediate RASH Verified 06/16/18 10:10 amoxicillin Allergy Unknown . Verified 06/16/18 10:10 atorvastatin Allergy Unknown acute Verified 06/16/18 10:10 renal failure clavulanic acid Allergy Unknown . Verified 06/16/18 10:10 egg Allergy Unknown _ Verified 06/16/18 10:10 latex Allergy Unknown RASH Verified 06/16/18 10:10 losartan Allergy Unknown Unknown Verified 08/07/18 21:01 Penicillins Allergy Unknown unknown Verified 06/16/18 10:10 pravastatin Allergy Unknown Unknown Verified 08/07/18 21:01 triamcinolone Allergy Unknown RASH Verified 06/16/18 10:10 nickel Allergy Redness of Verified 06/16/18 10:10 Skin capsaicin AdvReac Severe SKIN Verified 06/16/18 10:10 SLOTHED FROM HEEL diclofenac AdvReac Severe SKIN Verified 06/16/18 10:10 SLOTHED FROM HEEL Diclopak AdvReac Severe SKIN Verified 04/13/17 16:00 SLOTHED FROM HEEL isopropyl alcohol AdvReac Severe SKIN Verified 06/16/18 10:10 SLOTHED FROM HEEL propylene glycol AdvReac Severe SKIN Verified 06/16/18 10:10 SLOTHED FROM HEEL acetaminophen AdvReac Mild VOMITING Verified 06/16/18 10:10 Home Medications Home Medications Medication Instructions Recorded Confirmed Type Eliquis 5 mg PO BID 06/05/18 08/07/18 History Probiotic 1 cap PO BID 06/05/18 08/07/18 History Trulicity 0.75 mg SUBCUT WK 06/05/18 08/07/18 History albuterol sulfate 1 - 2 puff INHALATION .Q4-6HRS PRN 06/05/18 08/07/18 History calcium citrate 400 mg PO BID 06/05/18 08/07/18 History carvedilol [Coreg] 6.25 mg PO BID 06/05/18 08/07/18 History ergocalciferol (vitamin D2) 50,000 units PO WK 06/05/18 08/07/18 History ethacrynic acid 25 mg PO BID 06/05/18 08/07/18 History levothyroxine 150 mcg PO DAILY 06/05/18 08/07/18 History mirtazapine 30 mg PO HS 06/05/18 08/07/18 History multivitamin 1 tab PO DAILY 06/05/18 08/07/18 History potassium chloride 20 meq PO BID 06/05/18 08/07/18 History pramipexole 0.75 mg PO HS 06/05/18 08/07/18 History venlafaxine 150 mg PO DAILY 06/05/18 08/07/18 History magnesium oxide 400 mg PO TID 08/07/18 08/07/18 History pregabalin [Lyrica] 150 mg PO BID 08/07/18 08/07/18 History Patient History Medical History Paroxysmal atrial fibrillation (Chronic) History of hysterectomy (Chronic) Thrombophlebitis arm (Resolved) Staphylococcus aureus septicemia (Resolved) 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) Pleural effusion (Resolved) Toe ulcer due to DM (Acute) 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) Depression (Chronic) DM type 2 (diabetes mellitus, type 2) (Chronic) Neuropathy (Chronic) Hypothyroid (Chronic) CAD (coronary artery disease) (Chronic) Ischemic cardiomyopathy (Chronic) Hyperlipidemia (Chronic) GERD (gastroesophageal reflux disease) (Chronic) KAVIN on CPAP (Chronic) Surgical History H/O Achilles tendon repair (Chronic) AICD (automatic cardioverter/defibrillator) present (Chronic) S/P rotator cuff repair (Chronic) S/P CABG x 4 (Chronic) Family History Father Myocardial infarction Social History Preferred Language: [place] Communication Ability: Effective Occupational Therapy Department Chair Required: No Beliefs That Will Affect Care: None marital status: Single Current Living Situation: Alone Feels Safe at Home: Yes Safety Concerns: Feels Safe At This Time Smoking Status: Former smoker Second Hand Exposure: No Hx Alcohol Use: No Hx Substance Use: No Review of Systems Review of Systems: All systems reviewed & are unremarkable except as noted in HPI & below Physical Exam Constitutional: WD/WN, vitals as above comfortable; no acute distress Eyes: PERRL, conjunctivae normal, anicteric sclerae ENMT: external ear and nose normal, oropharynx normal Neck: trachea midline, no thyromegaly neck nontender Respiratory: normal respiratory effort, lungs clear to auscultation normal percussion; does not use accessory muscles Cardiovascular: Rate/Rhythm: regular rate and regular rhythm Heart Sounds: normal S1 and normal S2; no gallop, no murmur and no cardiac rub Vessels: normal peripheral pulses; no JVD Gastrointestinal (Abdomen): normal bowel sounds, soft, nontender, no hepatosplenomegaly Musculoskeletal: no cyanosis or clubbing, extremities motor strength 5/5 Spine: thoracic spine normal to inspection and lumbar spine normal to inspection; no cervical spinal tenderness Skin: normal turgor and + wound (Tip of left second toe); no rashes Neurologic: patellar DTR's 2+ bilat, sensation intact no focal motor deficits Psychiatric: A+Ox3, euthymic affect Orientation: cooperative Lymphatic: no cervical or axillary lymphadenopathy no inguinal lymphade nopathy Results & Data Vital Signs (Past 12 Hours) Vital Signs Temp Pulse Pulse Resp BP BP Pulse Ox 08/08/18 07:20 37.8 C H 87 22 91/60 L 98 08/08/18 06:16 86 08/08/18 05:45 103/68 08/08/18 03:41 91 H 105/67 08/08/18 02:56 37.3 C 89 20 97/59 L 99 08/08/18 02:24 87 20 104/61 99 08/08/18 01:04 89 20 110/49 L 98 08/08/18 00:41 87 20 115/60 99 08/07/18 23:03 91 H 22 113/74 99 08/07/18 22:34 95 H 20 98 08/07/18 22:32 95 H 29 H 100/55 L 97 Laboratory Results Short CBC 08/07/18 08/08/18 Range/Units 20:31 06:28 WBC 21.12 H 22.08 H (4.8-10.8) K/uL Hgb 10.8 L 10.0 L (12.0-16.0) g/dL Hct 33.1 L 30.0 L (37-47) % Plt Count 157 149 (130-400) K/uL BMP 08/07/18 08/08/18 20:31 06:28 Sodium 130 L 131 L Potassium 3.8 3.5 Chloride 96 L 98 Carbon Dioxide 23 23 BUN 48 H 49 H Creatinine 1.67 H 2.03 H D Glucose 385 H* 301 H* Calcium 7.9 L 7.3 L Cardiac Enzymes 08/07/18 08/07/18 Range/Units 20:31 20:31 Total Creatine Kinase 487 H (26-192) U/L Troponin I 0.089 H* Cancelled (0-0.045) ng/ml Liver Function 08/07/18 08/08/18 Range/Units 20:31 06:28 Total Bilirubin 1.4 H 1.2 H (0.2-1) mg/dl AST 26 31 (15-37) U/L ALT 36 34 (12-78) U/L Alkaline Phosphatase 145 H 121 H (45-117) U/L Albumin 2.8 L 2.6 L (3.4-5.0) gm/dl Urine 08/08/18 Range/Units 05:20 Urine Color Dark Yellow Urine Appearance Clear (Clear) Urine pH 5.0 (4.5-7.5) Ur Specific Donora 1.021 (1.000-1.030) Urine Protein 1+ H (Negative) Urine Glucose (UA) Negative (Negative) Diagnostic Findings Microbiology 08/07/18 21:52 Blood Aerobic Blood Culture - Preliminary Gram positive cocci clusters 08/07/18 21:52 Blood Anaerobic Blood Culture - Preliminary Gram positive cocci clusters 08/07/18 21:33 Blood Aerobic Blood Culture - Preliminary Gram positive cocci clusters 08/07/18 21:33 Blood Anaerobic Blood Culture - Preliminary Gram positive cocci clusters
[2018-08-08] MEDS ORDERED: VANCOMYCIN HCL 2,000 MG in SODIUM CHLORIDE 0.9% 500 ML IV SCH (12:15)
[2018-08-08] MEDS ORDERED: CEFEPIME 2,000 MG in SYRINGE 7.5 ML IV SCH (14:00)
--- NOTE | 2018-08-08 15:33 | Pharmacy Report ---
Pharmacy Abx Initial Consult - Date of Service August 08, 2018 - Pharmacy Dosing Scope Date of Consult: 08/08/18 Consultation requested by: Dr. Murray Pharmacy is consulted to initiate Vancomycin IV dosing therapy, order appropriate labs and adjust drug dose/frequency. - Subjective The patient is a 67 year old F admitted on 08/08/18 01:59. - Objective Height: 5 ft 4 in Weight: 82.5 kg Vital Signs (Past 12hrs): Vital Signs Temp Pulse Pulse Resp BP Pulse Ox Pulse Ox 08/08/18 13:53 96 08/08/18 12:30 36.7 C 86 18 96/64 L 97 08/08/18 07:20 37.8 C H 87 22 91/60 L 98 08/08/18 06:16 86 08/08/18 05:45 103/68 08/08/18 03:41 91 H 105/67 08/08/18 02:56 37.3 C 89 20 97/59 L 99 Pulse Ox 08/08/18 13:53 95 08/08/18 12:30 08/08/18 07:20 08/08/18 06:16 08/08/18 05:45 08/08/18 03:41 08/08/18 02:56 Lab Results (24hrs): Laboratory Tests (24 Hours) 08/08/18 08/08/18 08/07/18 06:28 06:28 20:32 WBC 22.08 H Neut # (Auto) 18.87 H Creatinine 2.03 H D Est Cr Clr Drug Dosing 28.7 Total Creatine Kinase Procalcitonin 0.61 H 08/07/18 08/07/18 20:31 20:31 WBC 21.12 H Neut # (Auto) 18.00 H Creatinine 1.67 H Est Cr Clr Drug Dosing 36.4 Total Creatine Kinase 487 H Procalcitonin - Assessment & Plan Assessment * 67 year old F with osteomyelitis of the toe now admitted with MRSA sepsis Plan Vancomycin IV * Estimated PK Parameters: Vd 0.6 L/kg, Boo 0.026 hr-1, t1/2 28 hr * Loading dose: 2000 mg (25 mg/kg) * Maintenance dose: will be determined based on random level obtained with tomorrow's AM labs * Goal trough level for: 15 to 20 mcg/mL * Random level ordered for 5/15/19 with AM labs * A less than traditional dose and/or extended dosing interval has/have been selected due to likelihood of drug accumulation in obese patient/patient with h/o CKD. Pharmacy will continue to follow and will adjust dose/frequency as necessary. Thank you.
--- NOTE | 2018-08-08 18:20 | Hospitalist Progress Note ---
Date of Service August 08, 2018 Assessment & Plan (1) Sepsis: (2) MRSA (methicillin resistant Staphylococcus aureus) septicemia: Present on admission with with elevated WBC, tachycardia and elevated lactic acid Blood cx and urine cx positive for gram positive cocci Elevated procalcitonin Lactic acid trending down Received cefepime and Doxy Abx changed to IV vanco ID on board Echo showed no evidence of mass or vegetation Will repeat blood cx (3) Acute osteomyelitis of toe of left foot: Hx of diabetic foot ulcer Possible source of positive blood cx Continue IV Vanco for now Will get xray of the toes Surgery consult (4) Encephalopathy: Possible related to sepsis Ammonia level on admission 63 received Lactulose ammonia 28 now GI was consulted and asked to cancel the consult since no signs for liver failure If decompensates due to GI etiology, will place consult to GI CT abd/pelvis showed o evidence of bowel obstruction. No evidence of free air. Distended gallbladder. Cholelithiasis. Trace ascites (5) Acute kidney injury superimposed on CKD: Due to sepsis and severe diarrhea creatinine on admission 1.6 Received IV fluid creatinine on admission 2 today Will continue gently hydration Monitor BMP (6) Diarrhea: Stool for Cdiff negative Possible worsening due to lactulose that was given Monitor electrolytes Will continue gentle hydration (7) Ischemic cardiomyopathy: (8) Chronic combined systolic (congestive) and diastolic (congestive) heart failure: CXR showed cardiomegaly with volume overload and mild congestive change. No pulmonary edema. ECHO done today showed reduced EF to 25-30 % compared to ECHO on 03/14 with EF 55-60% Continue Carvediloll 3.125mg BID Monitor closely for signs of fluid overload Will consult cardiology Chronic Afib Rate control with Carvedilol Continue Eliquis Right shoulder pain S/P fall Continue pain controlled Will get and xray of right shoulder PT/OT Fall precaution DM type 2 BS elevated Home oral agents and Trulicity on hold during hospital course On Lantus 15 unit and novolog sliding scale Will consult pharmacy for glycemic management DVT px on Apixaban CODE STATUS FULL CODE Subjective Pt was seen and examined Sitting in chair with no discharge Pt continues to have recurrent episodes of diarrhea She said that she feels ok and wanted to discharge before 08/11 She said that she is having the closing on her house on 08/11 and will have to get papers sign She said that she had things that she was supposed to place in the storage She said that her breathing is the same She does have pain in her buttock area due to the fall and grade the pain about 7/10 denies any chest pain, palpitation, dizziness and fever Physical Exam Physical Exam: eneral- No acute distress Head- atraumatic Eyes- PERRL, EOMI, ENT- oropharynx clear Neck- supple, no JVD Lungs- Diminish breath sound Heart- regular rhythm; no murmur Abdomen- normal bowel sounds, soft Extremities- no calf tenderness, wound in L 2nd toe and R 3rd toe Neuro- alert, oriented x 3; PERRL, EOMI; no facial palsy; no dysarthria Skin- warm & dry Results & Data Vital Signs (Past 12 Hours) Vital Signs Temp Pulse Pulse Resp BP Pulse Ox Pulse Ox 08/08/18 14:38 36.4 C L 80 21 152/82 H 96 08/08/18 13:53 96 08/08/18 12:30 36.7 C 86 18 96/64 L 97 08/08/18 07:20 37.8 C H 87 22 91/60 L 98 08/08/18 06:16 86 Pulse Ox 08/08/18 14:38 08/08/18 13:53 95 08/08/18 12:30 08/08/18 07:20 08/08/18 06:16
[2018-08-08] MEDS ORDERED: PHARMACY GLYCEMIC MGMT CONSULT PRN (19:23)
--- NOTE | 2018-08-08 19:27 | XRay Report ---
XR shoulder RT min 2V routine CLINICAL HISTORY: right shoulder pain pain. COMPARISON: 05/28/2017 DISCUSSION: Moderate degenerative change about humeral and acromioclavicular joint. Several surgical anchors are identified at the lateral aspect of the greater tuberosity. No evidence for fracture or d islocation. IMPRESSION: Moderate degenerative and postoperative change as noted. No acute process. The above report was generated using voice recognition software. It may contain grammatical, syntax or spelling errors. Electronically signed by: John Shields M.D. 08/08/2018 7:26 PM
--- NOTE | 2018-08-08 19:41 | XRay Report ---
XR toe LT min 2V CLINICAL HISTORY: L 2nd toe osteomyelitis COMPARISON: 05/19/2018 DISCUSSION: Findings of progressive bony destructive change primarily involving the tuft of the dista l phalanx left second toe. Localized soft tissue edema. Degenerative change throughout the remaining bony structures. IMPRESSION: Progressive osteomyelitis tuft distal phalanx left second toe. The above report was generated using voice recognition software. It may contain grammatical, syntax or spelling errors. Electronically signed by: John Shields M.D. 08/08/2018 7:40 PM
[2018-08-08] MEDS ORDERED: NSS + 20MEQ KCL 20 MEQ/1,000 ML BAG IV ONE (20:30)
[2018-08-08] MEDS: INSULIN GLARGINE SOLOSTAR 100 UNITS/ML 3 ML PEN SQ SCH (20:42)
[2018-08-08] MEDS: OXYCODONE HCL IR 5 MG TAB (IMMEDIATE RELEASE) PO PRN (20:51)
[2018-08-08] MEDS ORDERED: DOXYCYCLINE HYCLATE 100 MG CAP PO SCH (21:00)
[2018-08-08] MEDS ORDERED: POTASSIUM CHLORIDE 10 MEQ TABCR PO ONE (22:30)
[2018-08-09] MEDS ORDERED: INSULIN ASPART 100 UNITS/ML 3 ML PEN SC SCH (02:00)
[2018-08-09] MEDS: LEVOTHYROXINE SODIUM 150 MCG TABLET PO SCH (05:29)
[2018-08-09 08:04] LABS: Mean Corpuscular Hgb Conc 33.8 g/dL (32-36)
[2018-08-09 08:15] LABS: Hematocrit (blood only) 28.7 % (37-47); Hemoglobin 9.7 g/dL (12.0-16.0); Mean Corpuscular Volume 72.7 fL (80-100); RDW Coefficient of Variation 19.5 % (11.5-14.5); RDW Standard Deviation 52.3 fL (36.4-46.3); Red Blood Count 3.95 M/uL (4.2-5.4); White Blood Count 14.58 K/uL (4.8-10.8)
[2018-08-09 08:33] LABS: BUN Creatinine Ratio 28.6 (10-20); Calcium 8.3 mg/dl (8.5-10.1); Creatinine Clr Calc Pharmacy 28.9 ml/min; Est GFR (African American) 28.7; Est GFR (Non-African American) 24.8; Magnesium 2.1 mg/dl (1.8-2.4); Potassium 3.7 mmol/L (3.5-5.1)
[2018-08-09 08:38] LABS: Platelet Count 131 K/uL (130-400)
[2018-08-09 08:39] LABS: Platelet Estimate Normal (Normal)
--- NOTE | 2018-08-09 08:58 | Pharmacy Report ---
Pharmacy Abx Dose Short Note - Date of Service August 09, 2018 - Assessment & Plan Assessment * 67 year old F receiving vancomycin for treatment of osteomyelitis of the toe now admitted with MRSA sepsis * Day #2 of antimicrobial therapy. Plan Vancomycin * Random level of 12.9 mcg/mL is subtherapeutic * Will give one time dose of 1250mg (15 mg/kg) this morning and repeat random level tomorrow AM * Goal trough level for bacteremia 15 to 20 mcg/mL * Random level ordered for: 08/10/18 with AM labs Pharmacy will continue to follow and will adjust dose/frequency as necessary. Thank you.
[2018-08-09] MEDS ORDERED: VANCOMYCIN HCL 1,250 MG in SODIUM CHLORIDE 0.9% 250 ML IV SCH (09:00)
[2018-08-09] MEDS ORDERED: INSULIN GLARGINE SOLOSTAR 100 UNITS/ML 3 ML PEN SQ SCH (09:00)
[2018-08-09] MEDS: APIXABAN 2.5 MG TAB PO SCH (09:51)
[2018-08-09] MEDS: MULTIVITAMIN TAB PO SCH (09:51)
[2018-08-09] MEDS: VENLAFAXINE HCL XR 150 MG CAPXR PO SCH (09:51)
[2018-08-09] MEDS: LACTOBACILLUS ACIDOPHILUS (FLORANEX) TAB PO SCH ×2 (09:51→21:19)
[2018-08-09] MEDS: INSULIN ASPART 100 UNITS/ML 3 ML PEN SC SCH ×4 (09:54→21:18)
[2018-08-09] MEDS: CARVEDILOL 3.125 MG TAB PO SCH ×2 (09:55→21:17)
[2018-08-09] MEDS: INSULIN GLARGINE SOLOSTAR 100 UNITS/ML 3 ML PEN SQ SCH (09:57)
--- NOTE | 2018-08-09 10:51 | Pharmacy Report ---
Glycemic Control Consultation - Date of Service August 09, 2018 - Scope Scope: Glycemic Pharmacist consulted by Dr. Murray on 08/08/18 for glycemic control and to write orders per [facility] inpatient glycemic control protocol - Objective Weight: 85.1 kg Accuchecks BSG (last 24hrs): 08/08/18 08/08/18 08/08/18 11:49 16:26 20:25 Glucose POC Glucose 235 H 250 H 183 H 08/09/18 08/09/18 08/09/18 01:07 07:28 07:49 Glucose 162 H POC Glucose 155 H 162 H Laboratory Data (last 24hrs): 08/09/18 07:28 Potassium 3.7 Carbon Dioxide 20 L Anion Gap 11.0 Creatinine 2.05 H Est Cr Clr Drug Dosing 28.9 - Recent Pertinent Medications Outpatient Anti-diabetic Regimen: * Trulicity 0.75mg weekly * A1c = 7.6 % 06/06/18 Risk Factors for Insulin Resistance: * Infection: currently receiving vancomycin for acute osteomyelitis of toe of left foot/MRSA bacteremia * IVF: NS + 20 mEq KCl @50 ml/hr * Diet: clear liquids - Assessment & Plan Assessment & Plan: ASSESSMENT: * Ms. Marsh is a 67 yo F admitted to [facility] with MRSA septicemia- currently receiving IV vancomycin * PMH includes type 2 diabetes mellitus. Reasonably controlled with most recent A1c = 7.6% (May 2018). Pt takes Trulicity monotherapy as an outpatient. * Elevated BSGs upon admission. Novolog ACHS was initiated and a one time dose of Lantus 15 units was administered yesterday morning. Pharmacy was consulted yesterday afternoon. An additional 15 units of Lantus was ordered with dinner and the goal range was tightened. PLAN FOR INPATIENT GLYCEMIC CONTROL: * Basal insulin * Lantus 15 units QAM * Lantus HS per following scale: * if BSG less than 160 mg/dl: give 15 units * if BSG greater than or equal to 160 mg/dl: give 20 units * Bolus insulin - tightened * NovoLog per scale ACHS or Q6hrs while NPO * Goal Range: Low 110 mg/dL - High 140 mg/dL * Correction Factor: 25 mg/dL/unit * Nutritional / Prandial insulin per carb ratio of 1 unit per 8 grams CHO consumed * Please note that the plan above was derived based on current level of insulin resistance and hospital stress. These recommendations are appropriate for inpatient admission only. Plan of care upon discharge will need to be reassessed to avoid potential outpatient hypo/hyperglycemia. Thank you.
[2018-08-09] MEDS: MICONAZOLE NITRATE POWDER 43 GM EXT SCH ×2 (12:19→21:19)
[2018-08-09] MEDS: OXYCODONE HCL IR 5 MG TAB (IMMEDIATE RELEASE) PO PRN ×2 (12:22→17:09)
--- NOTE | 2018-08-09 13:44 | Surgery Consultation ---
Date of Consultation August 09, 2018 Assessment & Plan (1) Acute osteomyelitis of toe of left foot: Pt seen and examined with Dr. Teresa Pt with progressive osteomyelitis tuft distal phalanx left second toe. Gen Surgery recommends removal/amputation of this toe. At this time, patient does not want toe removed. She would prefer to continue antibiotic treatment. Patient should follow-up with Infectious Disease and follow-up with Orthopedics. General Surgery will sign off at this time. Please re-consult as needed. History of Present Illness Reason for Consultation: Progressive osteomyelitis tuft distal phalanx left second toe Attending Physician: Liya Guillen DO History of Present Illness 67-year-old female who currently resides at [facility] presented to [facility] yesterday for evaluation of rectal pain. General Surgery was consulted to evaluate patient for progressive osteomyelitis tuft distal phalanx left second toe. Patient states that she has been seeing infectious disease and has been on aggressive antibiotic therapy. She states that her toe has become worse since she was last evaluated by Dr. Mcdaniels. Patient has been seen by Dr. Donald and Dr. Garcia in the past, but she has not followed up with them recently. Allergies Allergy/AdvReac Type Severity Reaction Status Date / Time clindamycin Allergy Severe RASH, Verified 06/16/18 10:10 DELUSIONAL, CONVULSIONS Egg Derived Allergy Severe ANAPHYLAXIS Verified 06/16/18 10:10 furosemide Allergy Severe ANAPHYLAXIS Verified 06/16/18 10:10 rosuvastatin Allergy Severe LEG Unverified 06/16/18 10:10 WEAKNESS simvastatin Allergy Severe LEG Unverified 06/16/18 10:10 WEAKNESS Bactrim Allergy Intermediate RASH Verified 04/13/17 16:00 sulfamethoxazole Allergy Intermediate RASH Verified 06/16/18 10:10 trimethoprim Allergy Intermediate RASH Verified 06/16/18 10:10 amoxicillin Allergy Unknown . Verified 06/16/18 10:10 atorvastatin Allergy Unknown acute Verified 06/16/18 10:10 renal failure clavulanic acid Allergy Unknown . Verified 06/16/18 10:10 egg Allergy Unknown _ Verified 06/16/18 10:10 latex Allergy Unknown RASH Verified 06/16/18 10:10 losartan Allergy Unknown Unknown Verified 08/07/18 21:01 Penicillins Allergy Unknown unknown Verified 06/16/18 10:10 pravastatin Allergy Unknown Unknown Verified 08/07/18 21:01 triamcinolone Allergy Unknown RASH Verified 06/16/18 10:10 nickel Allergy Redness of Verified 06/16/18 10:10 Skin capsaicin AdvReac Severe SKIN Verified 06/16/18 10:10 SLOTHED FROM HEEL diclofenac AdvReac Severe SKIN Verified 06/16/18 10:10 SLOTHED FROM HEEL Diclopak AdvReac Severe SKIN Verified 04/13/17 16:00 SLOTHED FROM HEEL isopropyl alcohol AdvReac Severe SKIN Verified 06/16/18 10:10 SLOTHED FROM HEEL propylene glycol AdvReac Severe SKIN Verified 06/16/18 10:10 SLOTHED FROM HEEL acetaminophen AdvReac Mild VOMITING Verified 06/16/18 10:10 Home Medications Home Medications Medication Instructions Recorded Confirmed Type Eliquis 5 mg PO BID 06/05/18 08/07/18 History Probiotic 1 cap PO BID 06/05/18 08/07/18 History Trulicity 0.75 mg SUBCUT WK 06/05/18 08/07/18 History albuterol sulfate 1 - 2 puff INHALATION .Q4-6HRS PRN 06/05/18 08/07/18 History calcium citrate 400 mg PO BID 06/05/18 08/07/18 History carvedilol [Coreg] 6.25 mg PO BID 06/05/18 08/07/18 History ergocalciferol (vitamin D2) 50,000 units PO WK 06/05/18 08/07/18 History ethacrynic acid 25 mg PO BID 06/05/18 08/07/18 History levothyroxine 150 mcg PO DAILY 06/05/18 08/07/18 History mirtazapine 30 mg PO HS 06/05/18 08/07/18 History multivitamin 1 tab PO DAILY 06/05/18 08/07/18 History potassium chloride 20 meq PO BID 06/05/18 08/07/18 History pramipexole 0.75 mg PO HS 06/05/18 08/07/18 History venlafaxine 150 mg PO DAILY 06/05/18 08/07/18 History magnesium oxide 400 mg PO TID 08/07/18 08/07/18 History pregabalin [Lyrica] 150 mg PO BID 08/07/18 08/07/18 History Patient History Medical History Paroxysmal atrial fibrillation (Chronic) History of hysterectomy (Chronic) Thrombophlebitis arm (Resolved) Staphylococcus aureus septicemia (Resolved) 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) Pleural effusion (Resolved) Toe ulcer due to DM (Acute) 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) Depression (Chronic) DM type 2 (diabetes mellitus, type 2) (Chronic) Neuropathy (Chronic) Hypothyroid (Chronic) CAD (coronary artery disease) (Chronic) Ischemic cardiomyopathy (Chronic) Hyperlipidemia (Chronic) GERD (gastroesophageal reflux disease) (Chronic) KAVIN on CPAP (Chronic) Surgical History H/O Achilles tendon repair (Chronic) AICD (automatic cardioverter/defibrillator) present (Chronic) S/P rotator cuff repair (Chronic) S/P CABG x 4 (Chronic) Family History Father Myocardial infarction Social History Preferred Language: Belarusian Communication Ability: Effective Conical Mixer Required: No Beliefs That Will Affect Care: None marital status: Single Current Living Situation: Alone Feels Safe at Home: Yes Safety Concerns: Feels Safe At This Time Smoking Status: Former smoker Second Hand Exposure: No Hx Alcohol Use: No Hx Substance Use: No Physical Exam Cardiovascular: no palpable distal pulses of the left lower extremity. Skin: second toe on left foot- bandage removed. Patient has open wound, foul odor present. no drainage appreciated on physical examination. Results & Data Vital Signs (Past 12 Hours) Vital Signs Temp Pulse Resp BP Pulse Ox 08/09/18 11:23 36.2 C L 69 16 111/64 98 08/09/18 07:36 36.6 C 71 20 93/59 L 100 08/09/18 05:11 36.5 C 82 14 93/53 L 94
--- NOTE | 2018-08-09 14:18 | Hospitalist Progress Note ---
Date of Service August 09, 2018 Assessment & Plan (1) Sepsis: (2) MRSA (methicillin resistant Staphylococcus aureus) septicemia: source 2nd toe osteomyelitis infection, improved on vancomycin. Cont current treatment course. Ongoing discussion with surgery and ID regarding toe amputation as a definitive therapy. Pacemaker device will also need to be removed per Cards. (3) Acute osteomyelitis of toe of left foot: Amputation recommended, patient considering, Vancomycin. (4) Encephalopathy: resolved. (5) Acute kidney injury superimposed on CKD: continues on IVF with plataeu of creat at 2. Trend in am, if worsens consider Nephro consult. (6) Diarrhea: persistent, uncertain source. She had this in the past per her report. Will review outpatient records. Cont supportive care with PO nutrition. Stool culture and WBCs ordered. Of note, fecal management system was placed yesterday, but little output today. Pt has already gotten up to bedside commode with assistance, so will DC this now and encourage BMs on the bedside commode. (7) Ischemic cardiomyopathy: history of left ventricular dysfunction noted to have reduced LV function from prior echo 1 year ago. Cardiology consulted. Patient appears well compensated. Continue beta-angela, ELADIO inhibitor contraindicated in setting of renal dysfunction. No need for diuresis currently. (8) PAF (paroxysmal atrial fibrillation): bursts of afib overnight with sinus rhythm mainly. Longest run of afib was 20 minutes. Cont Eliquis for prophylaxis. Per pharmacy she does not meet criteria for reduced dosing. (9) CAD (coronary artery disease): no evidence of angina or ACS. Cont med management. (10) Neuropathy: restarted home Lyrica. (11) AICD (automatic cardioverter/defibrillator) present: will need to be removed at some point per Cardiology. (12) DVT prophylaxis: Eliquis-per pharmacy, she does not meet the criteria for a reduced dose Full Code Dispo-pending ID recs and patient's willingness for toe amputation. Liya Guillen DO [facility] Hospitalist Subjective Ms. Marsh is a 67-year-old female who presented to the emergency room with weakness, diarrhea and buttock pain that began 5 days prior to arrival. Initial lab work revealed white blood cell count of 21,000, H&H of 10.8/33, sodium 130, BUN 48, creatinine 1.67 with an elevated glucose of 385. Troponin was mildly elevated 0.089, TSH was normal, liver enzymes were normal. Lactate was elevated 2.6. Ammonia level was also elevated at 63. For a reported fall from her weakness a CT of the C-spine was performed which revealed chronic degenerative changes but no acute fracture. A CT of her head revealed no acute intracranial abnormality. Chest x-ray revealed some volume overload and mild congestive change with no pulmonary edema and improved aeration of the right lung base in comparison to the prior study. A lumbar spine x-ray revealed degenerative changes with no acute fracture as did a coccyx x-ray. She was very ill- appearing was treated with IV fluids and IV magnesium replacement. She had multiple lecture light abnormalities and an elevated white blood cell count. Blood cultures were obtained and revealed MRSA. She was encephalopathic on arrival and thought to have possible UTI, right groin cellulitis, possible infectious diarrhea, possible hepatic encephalopathy secondary to liver appearance on prior imaging studies. She was started on IV cefepime, IV doxycycline and C. difficile was checked and negative. She was given lactulose with improvement in her ammonia level. She had persistent diarrhea and required a rectal tube. Infectious disease was consulted for MRSA septicemia and reported the source to be a second left toe with evidence of osteomyelitis. IV vancomycin was started. Current surgical recommendations are to remove this toe, however, patient wanted to follow-up with infectious disease and gather other opinions. She is currently lucid and doing well although reporting to the nurse that she had pain in her feet. It is noted that her home Lyrica was not continued on admission and this was restarted. She has been afebrile and doing well on current antibiotic therapy. She is eating but is still very weak and has not gotten out of bed. Of note nursing reported urinary retention in the amount of 650 cc of retained urine on bladder scan. The patient had increased urinary urgency and once she was on the bedside commode she was able to urinate 600 cc of urine. Review of Systems Review of Systems: At least ten systems were reviewed and negative except as indicated in HPI above. Physical Exam Physical Exam: CONSTITUTIONAL: WNWD, vitals as above, generally well- appearing EYES: normal conjuctivae, no scleral icterus ENT: MMM RESPIRATORY: clear to auscultation bilaterally, no crackles, rales or wheezes, normal respiratory effort CARDIOVASCULAR: regular rate and rhythm, S1 and 2 heard without murmurs, gallops or rubs, no JVD, no peripheral edema CHEST: inspection of chest was normal GASTROINTESTINAL: normal bowel sounds, soft, nontender, nondistended MUSCULOSKELETAL: generalized weakness, cannot sit up in bed on her own. head is normocephalic and atraumatic SKIN: warm and dry, R inguinal rash present with no open areas or drainage present at this time. Open toe on left second toe, wrapped with dressing that is clean and intact. NEUROLOGIC: CN 2-12 grossly intact, no gross focal deficits. PSYCHIATRIC: alert cooperative and oriented Results & Data Vital Signs (Past 12 Hours) Vital Signs Temp Pulse Resp BP Pulse Ox 08/09/18 11:23 36.2 C L 69 16 111/64 98 08/09/18 07:36 36.6 C 71 20 93/59 L 100 08/09/18 05:11 36.5 C 82 14 93/53 L 94 Laboratory Results Short CBC 08/09/18 Range/Units 07:28 WBC 14.58 H (4.8-10.8) K/uL Hgb 9.7 L (12.0-16.0) g/dL Hct 28.7 L (37-47) % Plt Count 131 (130-400) K/uL BMP 08/09/18 07:28 Sodium 134 L Potassium 3.7 Chloride 103 Carbon Dioxide 20 L BUN 59 H Creatinine 2.05 H Glucose 162 H Calcium 8.3 L Medications Administered Current Inpatient Medications Acetaminophen (Tylenol) 325 mg PO Q6H PRN PRN Reason: Pain or Fever Stop: 09/07/18 01:59 Apixaban (Eliquis) 5 mg PO BID [facility] Stop: 09/08/18 20:59 Carvedilol (Coreg) 3.125 mg PO BID [facility] Stop: 09/07/18 08:59 Last Admin: 08/09/18 09:55 Dose: 3.125 mg Documented by: Dextrose (Dextrose 50%) 25 - 50 ml IV UD PRN; Protocol PRN Reason: Hypoglycemia Protocol Stop: 09/07/18 02:58 Glucagon (Glucagen) 1 mg SQ UD PRN; Protocol PRN Reason: Hypoglycemia Protocol Stop: 09/07/18 02:58 Glucose (Glucose 40%) 15 - 30 gm PO UD PRN; Protocol PRN Reason: Hypoglycemia Protocol Stop: 09/07/18 02:58 Glucose (Dex4 Glucose) 4 - 8 tabs PO UD PRN; Protocol PRN Reason: Hypoglycemia Protocol Stop: 09/07/18 02:58 Promethazine HCl 12.5 mg/ (Sodium Chloride) 50.5 mls @ 202 mls/hr IV Q6H PRN PRN Reason: Nausea And Vomiting Stop: 09/07/18 01:59 Insulin Aspart (Novolog Flexpen) 0 units SC ACHS [facility] Stop: 09/07/18 02:58 Last Admin: 08/09/18 17:10 Dose: 6 units Documented by: Insulin Glargine (Lantus Solostar Pen) 15 units SQ QAM [facility] Stop: 09/07/18 19:59 Insulin Glargine (Lantus Solostar Pen) 0 units SC TODAY@2100 [facility]; Protocol Stop: 08/09/18 21:01 Lactobacillus Acidophilus (Floranex) 1 tab PO BID [facility] Stop: 09/07/18 08:59 Last Admin: 08/09/18 09:51 Dose: 1 tab Documented by: Levothyroxine Sodium (Synthroid) 150 mcg PO DAILYBB [facility] Stop: 09/07/18 06:29 Last Admin: 08/09/18 05:29 Dose: 150 mcg Documented by: Miconazole Nitrate (Desenex) 1 appln EXT BID [facility] Stop: 09/07/18 02:58 Last Admin: 08/09/18 12:19 Dose: 1 appln Documented by: Miscellaneous (Carbohydrates For Hypoglycemia) 15 - 30 gm PO UD PRN PRN Reason: Hypoglycemia Treatment Stop: 09/07/18 02:58 Miscellaneous Information (Consult) 1 ea N/A UD PRN PRN Reason: Consult Stop: 09/07/18 09:25 Miscellaneous Information (Consult Glycemic Management Pharmacy) 1 ea N/A UD PRN PRN Reason: Consult Stop: 09/07/18 19:22 Multivitamins (Multivitamin Tab) 1 tab PO DAILY [facility] Stop: 09/07/18 08:59 Last Admin: 08/09/18 09:51 Dose: 1 tab Documented by: Nitroglycerin (Nitrostat) 0.4 mg SL UD PRN PRN Reason: Chest Pain Stop: 09/07/18 01:59 Oxycodone HCl (Roxicodone Immediate Rel) 5 mg PO Q4H PRN PRN Reason: Pain Stop: 08/22/18 01:59 Last Admin: 08/09/18 17:09 Dose: 5 mg Documented by: Pregabalin (Lyrica) 300 mg PO HS [facility] Stop: 09/08/18 20:59 Pregabalin (Lyrica) 150 mg PO DAILY [facility] Stop: 09/09/18 08:59 Venlafaxine HCl (Effexor Extended Release) 150 mg PO DAILY [facility] Stop: 09/07/18 08:59 Last Admin: 08/09/18 09:51 Dose: 150 mg Documented by: (1) CAD (coronary artery disease) Coronary Disease-Associated Artery/Lesion type: [place] artery [place] vs. transplanted heart: [place] heart Associated angina: without angina Qualified Code(s): I25.10 - Atherosclerotic heart disease of [place] coronary artery without angina pectoris
--- NOTE | 2018-08-09 15:48 | Infectious Disease Progress Nt ---
Date of Service August 09, 2018 Assessment & Plan (1) MRSA (methicillin resistant Staphylococcus aureus) septicemia: 67-year-old female with osteomyelitis of the toe now admitted with MRSA sepsis. Agree with use of IV vancomycin pending final sensitivity data, suspect she will need prolonged IV antibiotic therapy. Echocardiogram without obvious vegetation. Will follow. (2) Acute osteomyelitis of toe of left foot: Subjective Patient seen in follow-up for MRSA sepsis. Complaining of pain in her tailbone. No worsening left foot pain. Appears to be tolerating vancomycin without apparent difficulty. Review of Systems Review of Systems: All systems reviewed & are unremarkable except as noted in HPI & below Physical Exam Constitutional: WD/WN, vitals as above comfortable; no acute distress Eyes: PERRL, conjunctivae normal, anicteric sclerae ENMT: external ear and nose normal, oropharynx normal Neck: trachea midline, no thyromegaly neck nontender Respiratory: normal respiratory effort, lungs clear to auscultation normal percussion; does not use accessory muscles Cardiovascular: Rate/Rhythm: regular rate and regular rhythm Heart Sounds: normal S1 and normal S2; no gallop, no murmur and no cardiac rub Vessels: normal peripheral pulses; no JVD Gastrointestinal (Abdomen): normal bowel sounds, soft, nontender, no hepatosplenomegaly Musculoskeletal: no cyanosis or clubbing, extremities motor strength 5/5 Spine: thoracic spine normal to inspection and lumbar spine normal to inspection; no cervical spinal tenderness Skin: normal turgor and + wound (Tip of left second toe); no rashes Neurologic: patellar DTR's 2+ bilat, sensation intact no focal motor deficits Psychiatric: A+Ox3, euthymic affect Orientation: cooperative Lymphatic: no cervical or axillary lymphadenopathy no inguinal lymphadenopathy Results & Data Vital Signs (Past 12 Hours) Vital Signs Temp Pulse Resp BP Pulse Ox 08/09/18 11:23 36.2 C L 69 16 111/64 98 08/09/18 07:36 36.6 C 71 20 93/59 L 100 08/09/18 05:11 36.5 C 82 14 93/53 L 94
--- NOTE | 2018-08-09 16:15 | Cardiology Consultation ---
Date of Consultation August 09, 2018 Assessment & Plan (1) CAD (coronary artery disease): Patient is currently without symptoms suggestive of coronary insufficiency or angina. She can be maintained on her outpatient medical regimen which includes Eliquis and beta-blockade. (2) Ischemic cardiomyopathy: She has a long history of left ventricular dysfunction. And now for the facility she was noted to have reduced LV function and that was confirmed on echocardiography here at [facility]. Currently she appears to be well compensated. She is been maintained on beta-angela therapy as an outpatient. No ELADIO intubation currently due to renal dysfunction. No need for diuresis currently but will need to monitor her volume status closely. (3) AICD (automatic cardioverter/defibrillator) present: Patient underwent implantation of single-chamber [employer] ICD in November 2017. This was for primary prevention of sudden cardiac based on her known ischemic cardiomyopathy. Due to recurrent staph aureus bacteremia she likely has an infection of the device although subclinical at this point. The pocket itself did not appear obviously infected but I would recommend removal of the device. The timing of removal can be discussed with her primary team. Clinically she appears to be doing better. (4) Paroxysmal atrial fibrillation: Currently in sinus rhythm. Maintained on Eliquis for thromboembolic prophylaxis. History of Present Illness Reason for Consultation: Sepsis Requesting Physician: Wilmer Attending Physician: Liya Guillen DO History of Present Illness The patient is a 67-year-old woman with a history of coronary artery disease and associated ischemic cardiomyopathy previously undergone implantation of a single-chamber ICD. Patient has been admitted to our facility for sepsis. Her initial presentation involve some mental status changes as well as evidence of fever and leukocytosis. She was subsequent discovered to have staph aureus bacteremia believed secondary to osteomyelitis of her toe. Leading up to this admission the patient did have some symptoms of toe pain. She also had tailbone pain secondary to a recent injury. She had some abdominal complaints to include diarrhea which appears to wax and wane in severity. She denies symptoms of significant dyspnea. She cannot recall symptoms of chest discomfort. She did not have dizziness or lightheadedness. She did not report symptoms of palpitations. She cannot recall syncope. The patient was also admitted recently to an outside facility with evidence of hepatitis. Allergies Allergy/AdvReac Type Severity Reaction Status Date / Time clindamycin Allergy Severe RASH, Verified 06/16/18 10:10 DELUSIONAL, CONVULSIONS Egg Derived Allergy Severe ANAPHYLAXIS Verified 06/16/18 10:10 furosemide Allergy Severe ANAPHYLAXIS Verified 06/16/18 10:10 rosuvastatin Allergy Severe LEG Unverified 06/16/18 10:10 WEAKNESS simvastatin Allergy Severe LEG Unverified 06/16/18 10:10 WEAKNESS Bactrim Allergy Intermediate RASH Verified 04/13/17 16:00 sulfamethoxazole Allergy Intermediate RASH Verified 06/16/18 10:10 trimethoprim Allergy Intermediate RASH Verified 06/16/18 10:10 amoxicillin Allergy Unknown . Verified 06/16/18 10:10 atorvastatin Allergy Unknown acute Verified 06/16/18 10:10 renal failure clavulanic acid Allergy Unknown . Verified 06/16/18 10:10 egg Allergy Unknown _ Verified 06/16/18 10:10 latex Allergy Unknown RASH Verified 06/16/18 10:10 losartan Allergy Unknown Unknown Verified 08/07/18 21:01 Penicillins Allergy Unknown unknown Verified 06/16/18 10:10 pravastatin Allergy Unknown Unknown Verified 08/07/18 21:01 triamcinolone Allergy Unknown RASH Verified 06/16/18 10:10 nickel Allergy Redness of Verified 06/16/18 10:10 Skin capsaicin AdvReac Severe SKIN Verified 06/16/18 10:10 SLOTHED FROM HEEL diclofenac AdvReac Severe SKIN Verified 06/16/18 10:10 SLOTHED FROM HEEL Diclopak AdvReac Severe SKIN Verified 04/13/17 16:00 SLOTHED FROM HEEL isopropyl alcohol AdvReac Severe SKIN Verified 06/16/18 10:10 SLOTHED FROM HEEL propylene glycol AdvReac Severe SKIN Verified 06/16/18 10:10 SLOTHED FROM HEEL acetaminophen AdvReac Mild VOMITING Verified 06/16/18 10:10 Home Medications Home Medications Medication Instructions Recorded Confirmed Type Eliquis 5 mg PO BID 06/05/18 08/07/18 History Probiotic 1 cap PO BID 06/05/18 08/07/18 History Trulicity 0.75 mg SUBCUT WK 06/05/18 08/07/18 History albuterol sulfate 1 - 2 puff INHALATION .Q4-6HRS PRN 06/05/18 08/07/18 History calcium citrate 400 mg PO BID 06/05/18 08/07/18 History carvedilol [Coreg] 6.25 mg PO BID 06/05/18 08/07/18 History ergocalciferol (vitamin D2) 50,000 units PO WK 06/05/18 08/07/18 History ethacrynic acid 25 mg PO BID 06/05/18 08/07/18 History levothyroxine 150 mcg PO DAILY 06/05/18 08/07/18 History mirtazapine 30 mg PO HS 06/05/18 08/07/18 History multivitamin 1 tab PO DAILY 06/05/18 08/07/18 History potassium chloride 20 meq PO BID 06/05/18 08/07/18 History pramipexole 0.75 mg PO HS 06/05/18 08/07/18 History venlafaxine 150 mg PO DAILY 06/05/18 08/07/18 History magnesium oxide 400 mg PO TID 08/07/18 08/07/18 History pregabalin [Lyrica] 150 mg PO BID 08/07/18 08/07/18 History Patient History Medical History Paroxysmal atrial fibrillation (Chronic) History of hysterectomy (Chronic) Thrombophlebitis arm (Resolved) Staphylococcus aureus septicemia (Resolved) 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) Pleural effusion (Resolved) Toe ulcer due to DM (Acute) 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) Depression (Chronic) DM type 2 (diabetes mellitus, type 2) (Chronic) Neuropathy (Chronic) Hypothyroid (Chronic) CAD (coronary artery disease) (Chronic) Ischemic cardiomyopathy (Chronic) Hyperlipidemia (Chronic) GERD (gastroesophageal reflux disease) (Chronic) KAVIN on CPAP (Chronic) Surgical History H/O Achilles tendon repair (Chronic) AICD (automatic cardioverter/defibrillator) present (Chronic) S/P rotator cuff repair (Chronic) S/P CABG x 4 (Chronic) Family History Father Myocardial infarction Social History Preferred Language: Uz[place] Communication Ability: Effective 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 No recent orthopnea or paroxysmal nocturnal dyspnea. Physical Exam Physical Exam: She is alert and oriented x3. Mood affect appear normal. She answered all questions appropriately. HEENT: Sclerae are anicteric. Pupils are equal and reactive to light and accommodation. Extraocular movements were intact. Neuro: Cranial nerves intact Neck: Examination of the submandibular region did not reveal any significant lymphadenopathy. Carotids are palpable bilaterally and free of bruits on auscultation. There was no evidence of jugular venous distention. The thyroid was not enlarged. Lungs: Lungs are clear to auscultation bilaterally. There are no rales wheezes or rhonchi. She has normal respiratory effort without use of accessory muscles. There is normal pulmonary excursion. Cardiac: The rhythm was regular. S1 and S2 were normal. There are no murmurs on examination. The PMI was not markedly displaced on palpation. Chest: ICD implant in the left upper pectoral area without erythema, pain or swelling Abdomen: The abdomen was soft and nontender. Extremities: Patient has bilateral radial pulses that are equal in intensity. There is no evidence cyanosis or clubbing. There was no evidence of significant peripheral edema bilaterally. Skin: There are no rashes noted on examination today. Results & Data Vital Signs (Past 12 Hours) Vital Signs Temp Pulse Resp BP Pulse Ox 08/09/18 16:09 36.5 C 74 18 101/64 95 08/09/18 11:23 36.2 C L 69 16 111/64 98 08/09/18 07:36 36.6 C 71 20 93/59 L 100 08/09/18 05:11 36.5 C 82 14 93/53 L 94 Laboratory Results Abnormal Lab Results 08/08/18 08/08/18 08/09/18 16:26 20:25 01:07 WBC RBC Hgb Hct MCV MCH MCHC RDW Std Deviation RDW Coeff of [place] Plt Count Platelet Estimate Sodium Potassium Chloride Carbon Dioxide Anion Gap BUN Creatinine Est Cr Clr Drug Dosing Est GFR ( Amer) Est GFR (Non-Af Amer) BUN/Creatinine Ratio Glucose POC Glucose 250 H 183 H 155 H Calcium Magnesium Random Vancomycin 08/09/18 08/09/18 08/09/18 07:28 07:28 07:28 WBC 14.58 H RBC 3.95 L Hgb 9.7 L Hct 28.7 L MCV 72.7 L MCH 24.6 L MCHC 33.8 RDW Std Deviation 52.3 H RDW Coeff of [place]rell 19.5 H Plt Count 131 Platelet Estimate Normal Sodium 134 L Potassium 3.7 Chloride 103 Carbon Dioxide 20 L Anion Gap 11.0 BUN 59 H Creatinine 2.05 H Est Cr Clr Drug Dosing 28.9 Est GFR ( Amer) 28.7 Est GFR (Non-Af Amer) 24.8 BUN/Creatinine Ratio 28.6 H Glucose 162 H POC Glucose Calcium 8.3 L Magnesium 2.1 Random Vancomycin 12.4 08/09/18 08/09/18 07:49 11:49 WBC RBC Hgb Hct MCV MCH MCHC RDW Std Deviation RDW Coeff of [place]rell Plt Count Platelet Estimate Sodium Potassium Chloride Carbon Dioxide Anion Gap BUN Creatinine Est Cr Clr Drug Dosing Est GFR ( Amer) Est GFR (Non-Af Amer) BUN/Creatinine Ratio Glucose POC Glucose 162 H 220 H Calcium Magnesium Random Vancomycin Diagnostic Findings Chest x-ray obtained on admission not reveal any acute cardiopulmonary process Abdominal CT did not reveal any evidence of acute infection. She had cholelithiasis and evidence of anasarca with mild ascites. Toe x-ray revealed osteomyelitis (1) CAD (coronary artery disease) Coronary Disease-Associated Artery/Lesion type: [place] artery [place] vs. transplanted heart: [place] heart Associated angina: without angina Qualified Code(s): I25.10 - Atherosclerotic heart disease of [place] coronary artery without angina pectoris
[2018-08-09] MEDS ORDERED: PREGABALIN 150 MG CAP PO SCH (21:00)
[2018-08-09] MEDS ORDERED: INSULIN GLARGINE SOLOSTAR 100 UNITS/ML 3 ML PEN SC SCH (21:00)
[2018-08-09] MEDS: PREGABALIN 150 MG CAP PO SCH (21:15)
[2018-08-09] MEDS: APIXABAN 5 MG TABLET PO SCH (21:16)
[2018-08-10] MEDS: OXYCODONE HCL IR 5 MG TAB (IMMEDIATE RELEASE) PO PRN ×3 (00:02→15:39)
[2018-08-10] MEDS: LEVOTHYROXINE SODIUM 150 MCG TABLET PO SCH (07:21)
[2018-08-10 07:40] LABS: Mean Corpuscular Hgb Conc 32.8 g/dL (32-36); Nucleated RBC # (auto) 0.03 K/uL (0-0); Nucleated RBC % (auto) 0.2 %
[2018-08-10 08:04] LABS: Hematocrit (blood only) 31.7 % (37-47); Hemoglobin 10.4 g/dL (12.0-16.0); Mean Corpuscular Volume 73.7 fL (80-100); RDW Coefficient of Variation 19.5 % (11.5-14.5); RDW Standard Deviation 53.2 fL (36.4-46.3); White Blood Count 13.53 K/uL (4.8-10.8)
[2018-08-10 08:07] LABS: BUN Creatinine Ratio 33.7 (10-20); Calcium 8.7 mg/dl (8.5-10.1); Creatinine Clr Calc Pharmacy 33.1 ml/min; Est GFR (African American) 33.9; Est GFR (Non-African American) 29.2; Magnesium 2.3 mg/dl (1.8-2.4); Platelet Count 163 K/uL (130-400); Platelet Estimate Normal (Normal); Potassium 3.7 mmol/L (3.5-5.1)
[2018-08-10] MEDS ORDERED: INSULIN GLARGINE SOLOSTAR 100 UNITS/ML 3 ML PEN SQ SCH (09:00)
[2018-08-10] MEDS: VENLAFAXINE HCL XR 150 MG CAPXR PO SCH (09:23)
[2018-08-10] MEDS: MICONAZOLE NITRATE POWDER 43 GM EXT SCH ×2 (09:24→21:44)
[2018-08-10] MEDS: PREGABALIN 150 MG CAP PO SCH ×2 (09:24→21:50)
[2018-08-10] MEDS: MULTIVITAMIN TAB PO SCH (09:25)
[2018-08-10] MEDS: LACTOBACILLUS ACIDOPHILUS (FLORANEX) TAB PO SCH ×2 (09:25→21:45)
[2018-08-10] MEDS: APIXABAN 5 MG TABLET PO SCH ×2 (09:26→21:45)
[2018-08-10] MEDS: CARVEDILOL 3.125 MG TAB PO SCH ×2 (09:30→21:44)
[2018-08-10] MEDS: INSULIN ASPART 100 UNITS/ML 3 ML PEN SC SCH ×4 (09:32→21:44)
[2018-08-10] MEDS: VANCOMYCIN HCL 1,250 MG in SODIUM CHLORIDE 0.9% 250 ML IV SCH (09:34)
--- NOTE | 2018-08-10 10:46 | Hospitalist Progress Note ---
Date of Service August 10, 2018 Assessment & Plan (1) Sepsis: (2) MRSA (methicillin resistant Staphylococcus aureus) septicemia: source 2nd toe osteomyelitis infection, improved on vancomycin. Cont current treatment course. Pt in agreement for toe removal. Will re-engage with Surgery in am. Discussed the case with ID; agree that toe amputation and device removal need to be performed this admission. Will plan to stop Eliquis 48 hours prior to procedure. (3) Acute osteomyelitis of toe of left foot: Amputation recommended, Vancomycin. (4) Acute kidney injury superimposed on CKD: continues on IVF with plataeu of creat at 2. Improved to 1.79 this am. (5) Diarrhea: appears to have resolved. stool studies pending. (6) Ischemic cardiomyopathy: history of left ventricular dysfunction noted to have reduced LV function. Cardiology consulted. Crackles at lung bases on exam. Would start diuretics, however, she has a listed Type I allergy to Lasix. Will disucss with her further and with Cardiology regarding options. Continue beta-angela, ELADIO inhibitor contraindicated in setting of renal dysfunction. (7) PAF (paroxysmal atrial fibrillation): Cont Eliquis for prophylaxis. Per pharmacy she does not meet criteria for reduced dosing. (8) CAD (coronary artery disease): no evidence of angina or ACS. Cont med management. (9) Neuropathy: restarted home Lyrica. (10) AICD (automatic cardioverter/defibrillator) present: will need to be removed at some point this admission per Cardiology. (11) DVT prophylaxis: Eliquis Full Code Dispo-discharge once toe amputation and device removal performed. Liya Guillen DO [facility] Hospitalist Subjective the patient has reported tailbone pain today she appears somehat intoxicated and has recently had an oxycodone her speech is somewhat slow and she appears to have some issue focusing on the conversation she states the pain meds have done nothing to help her pain but have made her go to sleep. She tells me that tramdol has helped other pain in the past She denies any other symptoms at this time She is fixated on her groin rash and leakage from this area, however, there is none on evaluation and it looks improved from yesterday She agreed to undergoing the toe amputation. We discussed that Cardiology would also recommend removal of the ICD Review of Systems Review of Systems: All systems reviewed & are unremarkable except as noted in HPI & below Physical Exam Physical Exam: CONSTITUTIONAL: WNWD, vitals as above, generally well- appearing EYES: normal conjuctivae, no scleral icterus ENT: MMM RESPIRATORY: clear to auscultation bilaterally, no crackles, rales or wheezes, normal respiratory effort CARDIOVASCULAR: regular rate and rhythm, S1 and 2 heard without murmurs, gallops or rubs, no JVD, no peripheral edema, chronic venous stasis CHEST: inspection of chest was normal GASTROINTESTINAL: normal bowel sounds, soft, nontender, nondistended MUSCULOSKELETAL: generalized weakness, cannot sit up in bed on her own. head is normocephalic and atraumatic SKIN: warm and dry, R inguinal rash present with no open areas or drainage present at this time. Open toe on left second toe, wrapped with dressing that is clean and intact. NEUROLOGIC: CN 2-12 grossly intact, no gross focal deficits. PSYCHIATRIC: alert cooperative and oriented Results & Data Vital Signs (Past 12 Hours) Vital Signs Temp Pulse Pulse Resp BP Pulse Ox 08/10/18 09:34 75 124/72 08/10/18 07:30 36.6 C 69 18 106/61 94 08/10/18 03:44 36.8 C 65 24 93/55 L 96 08/10/18 01:20 71 08/09/18 23:49 36.6 C 70 20 118/71 96 Laboratory Results Short CBC 08/10/18 Range/Units 07:01 WBC 13.53 H (4.8-10.8) K/uL Hgb 10.4 L (12.0-16.0) g/dL Hct 31.7 L (37-47) % Plt Count 163 (130-400) K/uL BMP 08/10/18 07:01 Sodium 133 L Potassium 3.7 Chloride 102 Carbon Dioxide 23 BUN 60 H Creatinine 1.79 H Glucose 123 H Calcium 8.7 Medications Administered Current Inpatient Medications Acetaminophen (Tylenol) 325 mg PO Q6H PRN PRN Reason: Pain or Fever Stop: 09/07/18 01:59 Apixaban (Eliquis) 5 mg PO BID [facility] Stop: 09/08/18 20:59 Last Admin: 08/10/18 09:26 Dose: 5 mg Documented by: Carvedilol (Coreg) 3.125 mg PO BID MARITZA Stop: 09/07/18 08:59 Last Admin: 08/10/18 09:30 Dose: 3.125 mg Documented by: Dextrose (Dextrose 50%) 25 - 50 ml IV UD PRN; Protocol PRN Reason: Hypoglycemia Protocol Stop: 09/07/18 02:58 Glucagon (Glucagen) 1 mg SQ UD PRN; Protocol PRN Reason: Hypoglycemia Protocol Stop: 09/07/18 02:58 Glucose (Glucose 40%) 15 - 30 gm PO UD PRN; Protocol PRN Reason: Hypoglycemia Protocol Stop: 09/07/18 02:58 Glucose (Dex4 Glucose) 4 - 8 tabs PO UD PRN; Protocol PRN Reason: Hypoglycemia Protocol Stop: 09/07/18 02:58 Promethazine HCl 12.5 mg/ (Sodium Chloride) 50.5 mls @ 202 mls/hr IV Q6H PRN PRN Reason: Nausea And Vomiting Stop: 09/07/18 01:59 Vancomycin HCl 1,250 mg/ (Sodium Chloride) 275 mls @ 125 mls/hr IV Q24H [facility] Stop: 09/21/18 08:59 Last Admin: 08/10/18 09:34 Dose: 125 mls/hr Documented by: Insulin Aspart (Novolog Flexpen) 0 units SC ACHS [facility] Stop: 09/07/18 02:58 Last Admin: 08/10/18 09:32 Dose: 3 units Documented by: Insulin Glargine (Lantus Solostar Pen) 15 units SQ QAM [facility] Stop: 09/07/18 19:59 Last Admin: 08/10/18 09:24 Dose: 15 units Documented by: Lactobacillus Acidophilus (Floranex) 1 tab PO BID [facility] Stop: 09/07/18 08:59 Last Admin: 08/10/18 09:25 Dose: 1 tab Documented by: Levothyroxine Sodium (Synthroid) 150 mcg PO DAILYBB [facility] Stop: 09/07/18 06:29 Last Admin: 08/10/18 07:21 Dose: 150 mcg Documented by: Miconazole Nitrate (Desenex) 1 appln EXT BID [facility] Stop: 09/07/18 02:58 Last Admin: 08/10/18 09:24 Dose: 1 appln Documented by: Miscellaneous (Carbohydrates For Hypoglycemia) 15 - 30 gm PO UD PRN PRN Reason: Hypoglycemia Treatment Stop: 09/07/18 02:58 Miscellaneous Information (Consult) 1 ea N/A UD PRN PRN Reason: Consult Stop: 09/07/18 09:25 Miscellaneous Information (Consult Glycemic Management Pharmacy) 1 ea N/A UD PRN PRN Reason: Consult Stop: 09/07/18 19:22 Multivitamins (Multivitamin Tab) 1 tab PO DAILY MARITZA Stop: 09/07/18 08:59 Last Admin: 08/10/18 09:25 Dose: 1 tab Documented by: Nitroglycerin (Nitrostat) 0.4 mg SL UD PRN PRN Reason: Chest Pain Stop: 09/07/18 01:59 Oxycodone HCl (Roxicodone Immediate Rel) 5 mg PO Q4H PRN PRN Reason: Pain Stop: 08/22/18 01:59 Last Admin: 08/10/18 09:28 Dose: 5 mg Documented by: Pregabalin (Lyrica) 300 mg PO HS [facility] Stop: 09/08/18 20:59 Last Admin: 08/09/18 21:15 Dose: 300 mg Documented by: Pregabalin (Lyrica) 150 mg PO DAILY MARIT[facility] Stop: 09/09/18 08:59 Last Admin: 08/10/18 09:24 Dose: 150 mg Documented by: Venlafaxine HCl (Effexor Extended Release) 150 mg PO DAILY [facility] Stop: 09/07/18 08:59 Last Admin: 08/10/18 09:23 Dose: 150 mg Documented by: (1) CAD (coronary artery disease) Associated angina: without angina Coronary Disease-Associated Artery/Lesion type: [place] artery [place] vs. transplanted heart: [place] heart Qualified Code(s): I25.10 - Atherosclerotic heart disease of [place] coronary artery without angina pectoris
--- NOTE | 2018-08-10 13:28 | Pharmacy Report ---
Pharmacy Glycemic Short Note 2 - Date of Service August 10, 2018 - Glycemic Short BSG Results (Last 24 hours): 08/09/18 08/09/18 08/10/18 17:00 20:11 07:01 Glucose 123 H POC Glucose 235 H 272 H 08/10/18 08/10/18 07:28 11:31 Glucose POC Glucose 133 H 143 H ASSESSMENT: * BSGs have improved since yesterday. BSGs over the previous 24hrs: [id number]/dL. She required 60 units of insulin yesterday. She is still maintained on a clear liquid diet. Vancomycin continues. * No acute changes in insulin requirements are currently anticipated, will continue with current correctional insulin and adj metabolic orders slightly PLAN FOR INPATIENT GLYCEMIC CONTROL: * Hold outpatient oral diabetes medications * Basal insulin * Lantus scale SQ BID * hold lantus for BSGs <120mg/dL * BSGs >/=120mg/dL give 15 units * Bolus insulin * NovoLog per scale ACHS or Q6hrs while NPO * Goal Range: Low 110 mg/dL - High 140 mg/dL * Correction Factor: 25 mg/dL/unit * Nutritional / Prandial insulin per carb ratio of 1 unit per 8 grams CHO consumed
--- NOTE | 2018-08-10 14:19 | Heart Failure Progress Note ---
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 Marsh's fluid balance has been historically difficult to manage in the outpatient setting. Since her June admission at [facility] she has been very well compensated. Her dry weight at that time was 159 lb. and her kidney function had returned to normal. She is starting to look hypervolemic to me today. I would aim maintaining a neutral fluid balance at this point as she could easily become fluid overloaded. She is hypotensive and her blood cultures remain positive at this point so we would have to cautiously resume diuretics when the time comes. Recommend low sodium diet, less than 2,000 mg daily. Strict I&O's. Daily standing weights. Disposition: Anticipate continued close outpatient follow up with the heart failure program. (2) Ischemic cardiomyopathy: She carries a previous history of ischemic cardiomyopathy and her EF seems to wax and wane over the years. According to the echocardiogram done during her [facility] admission, her EF has declined from 55-60% to 30%. As an outpatient her Carvedilol has been titrated from 6.25mg to 12.5 mg BID. She is currently reveiving 3.125 mg BID, will continue to titrate back to home dosing as we are able. Could also consider re-introducing Entresto as an outpatient as she has been on it in the past. She has an ICD in place. Dr. Bo has recommended removing the device in the setting of recurrent sepsis. Also considering left toe amputation with general surgery. Disposition: Anticipate continued close outpatient follow up with the heart failure program. Subjective Mrs. Marsh is a 67 year old female with a history of Multivessel CAD s/p CABG x 4 Vessels 04/21/2015, Chronic Combined Systolic and Diastolic CHF, Type 2 DM, Hypertension, Dyslipidemia, GERD, COPD, Obesity, KAVIN, and an ischemic cardiomyopathy s/p Medtronic Visia AF MRI VR Single Chamber AICD Implantation 12/22/2017. Her primary decal cutter is Dr. Mayen. The patient is currently enrolled in the outpatient [facility] heart failure program. She was last seen on 07/20/18. She had been doing remarkably well from a volume standpoint following and admission at [facility] for sepsis secondary to pneumonia, ischemic hepatitis, and was also found to have sepsis associated DIC. Her weight has drastically declined almost 100 lb in the last 2 months. In April her weight was 259. Prior to admission, we were aggressively diuresing her and she was down to 230 lb. Following her admission her weight was down to 156 lb on 07/07/18. At that time she was feeling very well. She had no heart failure symptoms. Her kidney function and electrolytes had returned to normal range (creatinine 0.76-0.98) and remained there through her most recent outpatient labs on 07/31/18. Her weight has been slowly increasing over the last few weeks up to 187 lb according to [facility] documentation. She had been titrated up to Carvedilol 12.5 mg BID and we were considering initiation of Entresto since her renal function had stabilized. Claudia is currently admitted for sepsis. Her initial presentation involve some mental status changes as well as evidence of fever and leukocytosis. She was subsequent discovered to have staph aureus bacteremia believed secondary to osteomyelitis of her toe. BPs since admission have been consistent with her typical baseline. She was felt to be volume depleted so diuretics have been held so far. She currently denies shortness of breath or worsening orthopnea. Her lower extremity swelling remains at baseline. Her only complaint today is tailbone pain. Physical Exam Physical Exam: Constitutional: Alert, oriented, in no acute distress HEENT: Head is atraumatic and normocephalic. EOMs intact. Sclera anicteric. Face is symmetric. No perioral cyanosis. Mucous membranes moist. Neck: Supple, JVD noted 1/3 to the mandible. Negative hepatojugular reflux. Pulmonary: Normal respiratory effort. Bibasilar crackles noted Cardiac: Regular rate and rhythm. Normal S1 and S2, no gallops, no rubs, no murmurs Extremities: 2+ radial pulses bilaterally. 2+ posterior tibialis pulses bilaterally. Trace bilateral pretibial pitting edema. No cyanosis or clubbing. Chronic skin changes. Abdomen: Normal bowel sounds, distended, non-tender, no abdominal mass palpated Skin: Normal skin color, turgor, and pigmentation, no rash, no skin lesions Neurological: Oriented to person, place, and time Results & Data Vital Signs (Past 12 Hours) Vital Signs Temp Pulse Pulse Pulse Resp BP Pulse Ox 08/10/18 12:01 36.2 C L 76 20 99/64 L 99 08/10/18 09:34 75 124/72 08/10/18 07:30 36.6 C 69 18 106/61 94 08/10/18 07:20 75 08/10/18 03:44 36.8 C 65 24 93/55 L 96
--- NOTE | 2018-08-10 17:18 | Infectious Disease Progress Nt ---
Date of Service August 10, 2018 Assessment & Plan (1) MRSA (methicillin resistant Staphylococcus aureus) septicemia: Patient with MRSA sepsis, likely source is osteomyelitis of the toe. Agree with need for amputation and removal of ICD as both potential sources for persistent infection. We will continue on vancomycin. Will follow. (2) Acute osteomyelitis of toe of left foot: Subjective Seen in follow-up for MRSA sepsis. Cardiology consultation and follow-up noted. Temperature down today. Follow-up blood cultures are pending. Review of Systems Review of Systems: All systems reviewed & are unremarkable except as noted in HPI & below Physical Exam Constitutional: WD/WN, vitals as above comfortable; no acute distress Eyes: PERRL, conjunctivae normal, anicteric sclerae ENMT: external ear and nose normal, oropharynx normal Neck: trachea midline, no thyromegaly neck nontender Respiratory: normal respiratory effort, lungs clear to auscultation normal percussion; no respiratory distress Cardiovascular: Rate/Rhythm: regular rate and regular rhythm Heart Sounds: normal S1 and normal S2; no gallop, no murmur and no cardiac rub Gastrointestinal (Abdomen): normal bowel sounds, soft, nontender, no hepatosplenomegaly Musculoskeletal: no cyanosis or clubbing, extremities motor strength 5/5 No spinal tenderness, no joint swelling or erythema Skin: no rashes, warm and dry no lesions Neurologic: moves all extremities and awake; no focal motor deficits Motor/Sensory: no sensory deficit Psychiatric: A+Ox3, euthymic affect Lymphatic: no cervical or axillary lymphadenopathy no inguinal ly mphadenopathy Results & Data Vital Signs (Past 12 Hours) Vital Signs Temp Pulse Pulse Pulse Resp BP Pulse Ox 08/10/18 16:30 73 08/10/18 15:36 36.4 C L 86 20 109/67 98 08/10/18 12:01 36.2 C L 76 20 99/64 L 99 08/10/18 09:34 75 124/72 08/10/18 07:30 36.6 C 69 18 106/61 94 08/10/18 07:20 75 Laboratory Results Short CBC 08/10/18 Range/Units 07:01 WBC 13.53 H (4.8-10.8) K/uL Hgb 10.4 L (12.0-16.0) g/dL Hct 31.7 L (37-47) % Plt Count 163 (130-400) K/uL BMP 08/10/18 07:01 Sodium 133 L Potassium 3.7 Chloride 102 Carbon Dioxide 23 BUN 60 H Creatinine 1.79 H Glucose 123 H Calcium 8.7 Diagnostic Findings Microbiology 08/09/18 07:28 Blood Aerobic Blood Culture - Preliminary Gram positive cocci 08/09/18 07:28 Blood Anaerobic Blood Culture - Preliminary No growth in Anaerobic bottle after 24 hours. 08/09/18 07:45 Blood Aerobic Blood Culture - Preliminary Gram positive cocci 08/09/18 07:45 Blood Anaerobic Blood Culture - Preliminary No growth in Anaerobic bottle after 24 hours. 08/07/18 21:52 Blood Aerobic Blood Culture - Final Staph aureus MRSA 08/07/18 21:52 Blood Anaerobic Blood Culture - Final Staph aureus MRSA 08/07/18 21:33 Blood Aerobic Blood Culture - Final Staph aureus MRSA 08/07/18 21:33 Blood Anaerobic Blood Culture - Final Staph aureus MRSA
[2018-08-10] MEDS ORDERED: INSULIN GLARGINE SOLOSTAR 100 UNITS/ML 3 ML PEN SC SCH (21:00)
[2018-08-11] MEDS: LEVOTHYROXINE SODIUM 150 MCG TABLET PO SCH (06:23)
[2018-08-11] MEDS: CARBOHYDRATES FOR HYPOGLYCEMIA PO PRN ×3 (07:31→08:25)
[2018-08-11] MEDS: LACTOBACILLUS ACIDOPHILUS (FLORANEX) TAB PO SCH ×2 (07:46→21:19)
[2018-08-11] MEDS: MULTIVITAMIN TAB PO SCH (07:46)
[2018-08-11] MEDS: CARVEDILOL 3.125 MG TAB PO SCH ×2 (07:48→21:20)
[2018-08-11] MEDS: VENLAFAXINE HCL XR 150 MG CAPXR PO SCH (07:48)
[2018-08-11] MEDS: APIXABAN 5 MG TABLET PO SCH ×2 (07:49→21:20)
[2018-08-11] MEDS: PREGABALIN 150 MG CAP PO SCH ×2 (07:52→21:19)
[2018-08-11] MEDS: INSULIN ASPART 100 UNITS/ML 3 ML PEN SC SCH ×4 (08:22→21:47)
[2018-08-11] MEDS ORDERED: VANCOMYCIN TROUGH ONE (08:30)
[2018-08-11 08:40] LABS: Hematocrit (blood only) 31.2 % (37-47); Hemoglobin 10.4 g/dL (12.0-16.0); Mean Corpuscular Hgb Conc 33.3 g/dL (32-36); Mean Corpuscular Volume 72.9 fL (80-100); Nucleated RBC # (auto) 0.09 K/uL (0-0); Nucleated RBC % (auto) 0.8 %; Platelet Count 167 K/uL (130-400); RDW Coefficient of Variation 19.3 % (11.5-14.5); RDW Standard Deviation 51.5 fL (36.4-46.3); Red Blood Count 4.28 M/uL (4.2-5.4); White Blood Count 12.29 K/uL (4.8-10.8)
[2018-08-11] MEDS: TRAMADOL HCL 50 MG TABLET PO PRN ×4 (08:48→21:31)
[2018-08-11 09:06] LABS: BUN Creatinine Ratio 40.3 (10-20); Calcium 8.6 mg/dl (8.5-10.1); Creatinine Clr Calc Pharmacy 38.1 ml/min; Est GFR (Non-African American) 34.5; Potassium 3.7 mmol/L (3.5-5.1)
[2018-08-11] MEDS: MICONAZOLE NITRATE POWDER 43 GM EXT SCH ×2 (09:21→21:33)
[2018-08-11] MEDS: VANCOMYCIN HCL 1,250 MG in SODIUM CHLORIDE 0.9% 250 ML IV SCH (09:56)
[2018-08-11] MEDS ORDERED: INSULIN GLARGINE SOLOSTAR 100 UNITS/ML 3 ML PEN SC STA (12:49)
--- NOTE | 2018-08-11 13:03 | Pharmacy Report ---
Pharmacy Abx Dose Short Note - Date of Service August 11, 2018 - Assessment & Plan A/P Today's trough prior to Css is 17.6mcg/mL. MRSA ROSETTE=2 so we are targeting troughs closer to 20mcg/mL. There is a trough ordered for tomorrow which will be reflective of Css. Pharmacy will continue to follow and will adjust dose/frequency as necessary. Thank you.
[2018-08-11] MEDS: ETHACRYNIC ACID 25 MG TAB PO SCH ×2 (13:28→16:49)
--- NOTE | 2018-08-11 18:24 | Cardiology Progress Note ---
Date of Service August 11, 2018 Assessment & Plan (1) AICD (automatic cardioverter/defibrillator) present: Evaluation of the device pocket does not suggest infection, but given her recurrent bacteremia would agree with removal of device. I mentioned this to the patient twice this week and she seems to be in agreement. We will need to hold her apixaban for 2 days leading up to the procedure. This procedure could be performed any day next week including Tuesday for anticoagulation is held. (2) Chronic combined systolic (congestive) and diastolic (congestive) heart failure: I would suggest increasing the patient's carvedilol to 6.25 milligrams t wice daily. We can monitor her hemodynamics and titrate this upwards again during hospitalization. Her blood pressures been relatively low. At some point we need to reintroduce Yair inhibition or Entresto. Her fluid balance is in question. Unfortunately there is no record of any output today. Need to be vigilant regarding evidence of volume overload. She will need doses of diuretics if she he has evidence of crackles or worsening lower extremity edema. (3) CAD (coronary artery disease): History of surgical revascularization. No current symptoms suggestive of coronary insufficiency or angina (4) PAF (paroxysmal atrial fibrillation): Maintaining sinus rhythm I will be away from the hospital for the next 2 days. I would address any questions regarding this patient's management to the [facility] auto adjudication specialist labor economics professor. Subjective This afternoon the patient claims to be feeling well. She describes minimal discomfort at the site of her toe infection. She has not report ambulating today. She denies any breathing difficulty. She has no symptoms of chest pain. Most of our conversation today centered around her concerns over recent real estate transaction. Review of Systems Review of Systems: Per HPI Physical Exam Physical Exam: She is alert and oriented x3. Mood affect appear normal. She answered all questions appropriately. HEENT: Sclerae are anicteric. Pupils are equal and reactive to light and accommodation. Extraocular movements were intact. Neuro: Cranial nerves intact Lungs: Lungs are clear to auscultation bilaterally. There is no expiratory wheezing. She has some coarse upper airway sounds.. Cardiac: The rhythm was regular. S1 and S2 were normal. There are no murmurs on examination. The PMI was not markedly displaced on palpation. Abdomen: The abdomen was soft and nontender. Obese Extremities: Patient has bilateral radial pulses that are equal in intensity. There is no evidence cyanosis or clubbing. There was no evidence of significant peripheral edema bilaterally. Multiple excoriations over the legs and chest. Results & Data Vital Signs (Past 12 Hours) Vital Signs Temp Pulse Pulse Resp BP Pulse Ox 08/11/18 15:32 36.8 C 70 18 112/66 96 08/11/18 15:21 69 08/11/18 12:12 36.6 C 68 20 113/65 97 08/11/18 10:00 75 08/11/18 07:41 36.5 C 71 18 114/70 97 Laboratory Results Abnormal Lab Results 08/10/18 08/11/18 08/11/18 20:18 07:28 07:28 WBC RBC Hgb Hct MCV MCH MCHC RDW Std Deviation RDW Coeff of [place] Plt Count Absolute Nucleated RBC Nucleated RBC % (auto) Sodium Potassium Chloride Carbon Dioxide Anion Gap BUN Creatinine Est Cr Clr Drug Dosing Est GFR ( Amer) Est GFR (Non-Af Amer) BUN/Creatinine Ratio Glucose POC Glucose 87 64 L* 58 L* Calcium Vancomycin Trough 08/11/18 08/11/18 08/11/18 07:45 08:11 08:27 WBC RBC Hgb Hct MCV MCH MCHC RDW Std Deviation RDW Coeff of [place] Plt Count Absolute Nucleated RBC Nucleated RBC % (auto) Sodium 134 L Potassium 3.7 Chloride 102 Carbon Dioxide 24 Anion Gap 8.0 BUN 63 H Creatinine 1.56 H Est Cr Clr Drug Dosing 38.1 Est GFR ( Amer) 40.0 Est GFR (Non-Af Amer) 34.5 BUN/Creatinine Ratio 40.3 H Glucose 86 POC Glucose 63 L* 64 L* Calcium 8.6 Vancomycin Trough 08/11/18 08/11/18 08/11/18 08:27 08:27 08:42 WBC 12.29 H RBC 4.28 Hgb 10.4 L Hct 31.2 L MCV 72.9 L MCH 24.3 L MCHC 33.3 RDW Std Deviation 51.5 H RDW Coeff of [place] 19.3 H Plt Count 167 Absolute Nucleated RBC 0.09 H Nucleated RBC % (auto) 0.8 Sodium Potassium Chloride Carbon Dioxide Anion Gap BUN Creatinine Est Cr Clr Drug Dosing Est GFR ( Amer) Est GFR (Non-Af Amer) BUN/Creatinine Ratio Glucose POC Glucose 95 Calcium Vancomycin Trough 17.6 08/11/18 08/11/18 11:43 16:44 WBC RBC Hgb Hct MCV MCH MCHC RDW Std Deviation RDW Coeff of [place] Plt Count Absolute Nucleated RBC Nucleated RBC % (auto) Sodium Potassium Chloride Carbon Dioxide Anion Gap BUN Creatinine Est Cr Clr Drug Dosing Est GFR ( Amer) Est GFR (Non-Af Amer) BUN/Creatinine Ratio Glucose POC Glucose 144 H 92 Calcium Vancomycin Trough (1) CAD (coronary artery disease) Associated angina: without angina Coronary Disease-Associated Artery/Lesion type: [place] artery [place] vs. transplanted heart: [place] heart Qualified Code(s): I25.10 - Atherosclerotic heart disease of [place] coronary artery without angina pectoris
--- NOTE | 2018-08-11 19:23 | Infectious Disease Progress Nt ---
Date of Service August 11, 2018 Assessment & Plan (1) MRSA (methicillin resistant Staphylococcus aureus) septicemia: Patient with MRSA sepsis, likely source is osteomyelitis of the toe. Agree with need for amputation and removal of ICD as both potential sources for persistent infection. We will continue on vancomycin. Will follow. (2) Acute osteomyelitis of toe of left foot: Subjective Patient seen in follow-up for MRSA sepsis. Complaining of pain in her toe. No increase in shortness of breath, no chest pain. Currently afebrile. Review of Systems Review of Systems: All systems reviewed & are unremarkable except as noted in HPI & below Physical Exam Constitutional: WD/WN, vitals as above comfortable; no acute distress Eyes: PERRL, conjunctivae normal, anicteric sclerae ENMT: external ear and nose normal, oropharynx normal Neck: trachea midline, no thyromegaly neck nontender Respiratory: normal respiratory effort, lungs clear to auscultation normal percussion; no respiratory distress and does not use accessory muscles Cardiovascular: Rate/Rhythm: regular rate and regular rhythm Heart Sounds: normal S1 and normal S2; no gallop, no murmur and no cardiac rub Vessels: normal peripheral pulses; no JVD Gastrointestinal (Abdomen): normal bowel sounds, soft, nontender, no hepatosplenomegaly Musculoskeletal: no cyanosis or clubbing, extremities motor strength 5/5 Spine: thoracic spine normal to inspection and lumbar spine normal to inspection; no cervical spinal tenderness Skin: no rashes, warm and dry normal turgor and + wound (Tip of left second toe); no rashes and no lesions Neurologic: patellar DTR's 2+ bilat, sensation intact moves all extremities and awake; no focal motor deficits Motor/Sensory: no sensory deficit Psychiatric: A+Ox3, euthymic affect Orientation: cooperative Lymphatic: no cervical or axillary lymphadenopathy no inguinal lymphadenopathy Results & Data Vital Signs (Past 12 Hours) Vital Signs Temp Pulse Pulse Resp BP Pulse Ox 08/11/18 19:10 36.8 C 71 18 108/70 96 08/11/18 15:32 36.8 C 70 18 112/66 96 08/11/18 15:21 69 08/11/18 12:12 36.6 C 68 20 113/65 97 08/11/18 10:00 75 08/11/18 07:41 36.5 C 71 18 114/70 97 Laboratory Results Short CBC 08/11/18 Range/Units 08:27 WBC 12.29 H (4.8-10.8) K/uL Hgb 10.4 L (12.0-16.0) g/dL Hct 31.2 L (37-47) % Plt Count 167 (130-400) K/uL BMP 08/11/18 08:27 Sodium 134 L Potassium 3.7 Chloride 102 Carbon Dioxide 24 BUN 63 H Creatinine 1.56 H Glucose 86 Calcium 8.6 Diagnostic Findings Microbiology 08/09/18 07:45 Blood Aerobic Blood Culture - Preliminary Staph aureus MRSA 08/09/18 07:45 Blood Anaerobic Blood Culture - Preliminary No growth in Anaerobic bottle after 48 hours. 08/09/18 07:28 Blood Aerobic Blood Culture - Preliminary Staph aureus MRSA 08/09/18 07:28 Blood Anaerobic Blood Culture - Preliminary No growth in Anaerobic bottle after 48 hours. 08/10/18 07:11 Blood Aerobic Blood Culture - Preliminary Gram positive cocci clusters 08/10/18 07:11 Blood Anaerobic Blood Culture - Preliminary No growth in Anaerobic bottle after 24 hours. 08/10/18 07:01 Blood Aerobic Blood Culture - Preliminary Gram positive cocci clusters 08/10/18 07:01 Blood Anaerobic Blood Culture - Preliminary No growth in Anaerobic bottle after 24 hours. 08/07/18 21:52 Blood Aerobic Blood Culture - Final Staph aureus MRSA 08/07/18 21:52 Blood Anaerobic Blood Culture - Final Staph aureus MRSA 08/07/18 21:33 Blood Aerobic Blood Culture - Final Staph aureus MRSA 08/07/18 21:33 Blood Anaerobic Blood Culture - Final Staph aureus MRSA
--- NOTE | 2018-08-11 22:17 | Hospitalist Progress Note ---
Date of Service August 11, 2018 Assessment & Plan (1) Sepsis: (2) MRSA (methicillin resistant Staphylococcus aureus) septicemia: source 2nd toe osteomyelitis infection, improved on vancomycin. Cont current treatment course. Pt in agreement for toe removal. Discussed case with Dr. John who will plan to perform the surgery next . Will plan to hold Eliquis 2 days prior. Will then plan for pacer removal. (3) Acute osteomyelitis of toe of left foot: Amputation recommended, Vancomycin. (4) Acute kidney injury superimposed on CKD: resolved to 1.5 today. Started ethycrynic acid today as there were more crackles on exam. (5) Ischemic cardiomyopathy: history of left ventricular dysfunction noted to have reduced LV function. Cardiology consulted. Crackles at lung bases on exam. Restart ethycrnic acid (6) Chronic combined systolic (congestive) and diastolic (congestive) heart failure: (7) Coccyx pain: Tramadol PRN (8) DVT prophylaxis: Apixaban Full Dispo-hospitalized for the next week. Liya Guillen DO [facility] Hospitalist Subjective feeling well with some persistent coccyx pain more alert and in the chair. denies any further diarrhea, no BMs since rectal tube removed. Review of Systems Review of Systems: All systems reviewed & are unremarkable except as noted in HPI & below Physical Exam Physical Exam: CONSTITUTIONAL: WNWD, vitals as above, generally well- appearing EYES: normal conjuctivae, no scleral icterus ENT: MMM RESPIRATORY: clear to auscultation bilaterally, no crackles, rales or wheezes, normal respiratory effort CARDIOVASCULAR: regular rate and rhythm, S1 and 2 heard without murmurs, gallops or rubs, no JVD, no peripheral edema, chronic venous stasis CHEST: inspection of chest was normal GASTROINTESTINAL: normal bowel sounds, soft, nontender, nondistended MUSCULOSKELETAL: generalized weakness, cannot sit up in bed on her own. head is normocephalic and atraumatic SKIN: warm and dry, R inguinal rash present with no open areas or drainage present at this time. Open toe on left second toe, wrapped with dressing that is clean and intact. NEUROLOGIC: CN 2-12 grossly intact, no gross focal deficits. PSYCHIATRIC: alert cooperative and oriented Results & Data Vital Signs (Past 12 Hours) Vital Signs Temp Pulse Pulse Resp BP Pulse Ox 08/11/18 19:10 36.8 C 71 18 108/70 96 08/11/18 15:32 36.8 C 70 18 112/66 96 08/11/18 15:21 69 08/11/18 12:12 36.6 C 68 20 113/65 97 Laboratory Results Short CBC 08/11/18 Range/Units 08:27 WBC 12.29 H (4.8-10.8) K/uL Hgb 10.4 L (12.0-16.0) g/dL Hct 31.2 L (37-47) % Plt Count 167 (130-400) K/uL BMP 08/11/18 08:27 Sodium 134 L Potassium 3.7 Chloride 102 Carbon Dioxide 24 BUN 63 H Creatinine 1.56 H Glucose 86 Calcium 8.6 Medications Administered Current Inpatient Medications Acetaminophen (Tylenol) 325 mg PO Q6H PRN PRN Reason: Pain or Fever Stop: 09/07/18 01:59 Apixaban (Eliquis) 5 mg PO BID [facility] Stop: 09/08/18 20:59 Last Admin: 08/11/18 21:20 Dose: 5 mg Documented by: Carvedilol (Coreg) 3.125 mg PO BID [facility] Stop: 09/07/18 08:59 Last Admin: 08/11/18 21:20 Dose: 3.125 mg Documented by: Dextrose (Dextrose 50%) 25 - 50 ml IV UD PRN; Protocol PRN Reason: Hypoglycemia Protocol Stop: 09/07/18 02:58 Ethacrynic Acid (Edecrin) 25 mg PO BID17 [facility] Stop: 09/10/18 12:59 Last Admin: 08/11/18 16:49 Dose: 25 mg Documented by: Glucagon (Glucagen) 1 mg SQ UD PRN; Protocol PRN Reason: Hypoglycemia Protocol Stop: 09/07/18 02:58 Glucose (Glucose 40%) 15 - 30 gm PO UD PRN; Protocol PRN Reason: Hypoglycemia Protocol Stop: 09/07/18 02:58 Glucose (Dex4 Glucose) 4 - 8 tabs PO UD PRN; Protocol PRN Reason: Hypoglycemia Protocol Stop: 09/07/18 02:58 Vancomycin HCl 1,250 mg/ (Sodium Chloride) 275 mls @ 125 mls/hr IV Q24H [facility] Stop: 09/21/18 08:59 Last Infusion: 08/11/18 12:08 Dose: Infused Documented by: Insulin Aspart (Novolog Flexpen) 0 units SC ACHS [facility] Stop: 09/07/18 02:58 Last Admin: 08/11/18 21:47 Dose: Not Given Documented by: Lactobacillus Acidophilus (Floranex) 1 tab PO BID [facility] Stop: 09/07/18 08:59 Last Admin: 08/11/18 21:19 Dose: 1 tab Documented by: Levothyroxine Sodium (Synthroid) 150 mcg PO DAILYBB [facility] Stop: 09/07/18 06:29 Last Admin: 08/11/18 06:23 Dose: 150 mcg Documented by: Miconazole Nitrate (Desenex) 1 appln EXT BID [facility] Stop: 09/07/18 02:58 Last Admin: 08/11/18 21:33 Dose: 1 appln Documented by: Miscellaneous (Carbohydrates For Hypoglycemia) 15 - 30 gm PO UD PRN PRN Reason: Hypoglycemia Treatment Stop: 09/07/18 02:58 Last Admin: 08/11/18 08:25 Dose: 15 gm Documented by: Miscellaneous Information (Consult) 1 ea N/A UD PRN PRN Reason: Consult Stop: 09/07/18 09:25 Miscellaneous Information (Consult Glycemic Management Pharmacy) 1 ea N/A UD PRN PRN Reason: Consult Stop: 09/07/18 19:22 Multivitamins (Multivitamin Tab) 1 tab PO DAILY [facility] Stop: 09/07/18 08:59 Last Admin: 08/11/18 07:46 Dose: 1 tab Documented by: Nitroglycerin (Nitrostat) 0.4 mg SL UD PRN PRN Reason: Chest Pain Stop: 09/07/18 01:59 Pregabalin (Lyrica) 300 mg PO HS [facility] Stop: 09/08/18 20:59 Last Admin: 08/11/18 21:19 Dose: 300 mg Documented by: Pregabalin (Lyrica) 150 mg PO DAILY [facility] Stop: 09/09/18 08:59 Last Admin: 08/11/18 07:52 Dose: 150 mg Documented by: Tramadol HCl (Ultram) 50 mg PO Q4H PRN PRN Reason: Pain Stop: 09/09/18 16:50 Last Admin: 08/11/18 21:31 Dose: 50 mg Documented by: Venlafaxine HCl (Effexor Extended Release) 150 mg PO DAILY [facility] Stop: 09/07/18 08:59 Last Admin: 08/11/18 07:48 Dose: 150 mg Documented by:
[2018-08-12] MEDS: TRAMADOL HCL 50 MG TABLET PO PRN ×2 (02:39→21:36)
[2018-08-12] MEDS: LEVOTHYROXINE SODIUM 150 MCG TABLET PO SCH (06:34)
[2018-08-12] MEDS: VENLAFAXINE HCL XR 150 MG CAPXR PO SCH (08:06)
[2018-08-12] MEDS: PREGABALIN 150 MG CAP PO SCH ×2 (08:06→21:29)
[2018-08-12] MEDS: LACTOBACILLUS ACIDOPHILUS (FLORANEX) TAB PO SCH ×2 (08:06→21:28)
[2018-08-12] MEDS: MULTIVITAMIN TAB PO SCH (08:06)
[2018-08-12] MEDS: CARVEDILOL 3.125 MG TAB PO SCH ×2 (08:07→21:27)
[2018-08-12] MEDS: APIXABAN 5 MG TABLET PO SCH ×2 (08:08→21:28)
[2018-08-12] MEDS: ETHACRYNIC ACID 25 MG TAB PO SCH ×2 (08:08→17:44)
[2018-08-12] MEDS: MICONAZOLE NITRATE POWDER 43 GM EXT SCH ×2 (08:10→21:27)
[2018-08-12] MEDS ORDERED: VANCOMYCIN TROUGH ONE (08:30)
[2018-08-12 08:46] LABS: Hematocrit (blood only) 31.5 % (37-47); Hemoglobin 10.5 g/dL (12.0-16.0); Mean Corpuscular Hgb Conc 33.3 g/dL (32-36); Mean Corpuscular Volume 72.7 fL (80-100); Nucleated RBC # (auto) 0.03 K/uL (0-0); Nucleated RBC % (auto) 0.2 %; Platelet Count 160 K/uL (130-400); RDW Coefficient of Variation 19.1 % (11.5-14.5); RDW Standard Deviation 51.5 fL (36.4-46.3); Red Blood Count 4.33 M/uL (4.2-5.4); White Blood Count 10.38 K/uL (4.8-10.8)
[2018-08-12] MEDS: INSULIN ASPART 100 UNITS/ML 3 ML PEN SC SCH ×4 (08:55→21:00)
[2018-08-12] MEDS: INSULIN GLARGINE SOLOSTAR 100 UNITS/ML 3 ML PEN SC SCH (08:56)
[2018-08-12] MEDS: VANCOMYCIN HCL 1,250 MG in SODIUM CHLORIDE 0.9% 250 ML IV SCH (09:00)
[2018-08-12 09:07] LABS: Calcium 8.4 mg/dl (8.5-10.1); Creatinine Clr Calc Pharmacy 51.1 ml/min; Est GFR (Non-African American) 48.4; Magnesium 1.7 mg/dl (1.8-2.4); Potassium 3.1 mmol/L (3.5-5.1)
--- NOTE | 2018-08-12 10:00 | Pharmacy Report ---
Pharmacy Abx Dose Short Note - Date of Service August 12, 2018 - Assessment & Plan Assessment 67 year old F receiving IV Vancomycin for treatment of MRSA bacteremia, osteomyelitis Day # 5 of antimicrobial therapy. Plan Vancomycin * Trough level of 18 mcg/mL is therapeutic (appropriately drawn) * Continue dose of 1250 mg IV every 24 hours * Goal trough level for bacteremia : 15 to 20 mcg/mL * Trough level ordered for: 08/14/18 @ 0830; despite significantly improved renal function since admission, Vancomycin remains within therapeutic range. It is possible that she has some Vancomycin accumulation due to obesity. Do not anticipate that Vancomycin will become subtherapeutic on current regimen, therefore will recheck trough in 2 days Pharmacy will continue to follow and will adjust dose/frequency as necessary. Thank you.
[2018-08-12] MEDS ORDERED: POTASSIUM CHLORIDE 20 MEQ TABCR PO STA (11:53)
[2018-08-12] MEDS ORDERED: MAGNESIUM SULFATE IV SCH (13:00)
[2018-08-12] MEDS ORDERED: SODIUM CHLORIDE 0.9% IV SCH (13:00)
[2018-08-12] MEDS ORDERED: POTASSIUM CHLORIDE IV SCH (13:00)
--- NOTE | 2018-08-12 13:27 | Hospitalist Progress Note ---
Date of Service August 12, 2018 Assessment & Plan (1) Diarrhea: Stool culture and C diff toxin are negative this admission. Only one episode so far. Will cont to monitor. Cont supportive care and replace lytes as needed. (2) Sepsis: (3) MRSA (methicillin resistant Staphylococcus aureus) septicemia: source 2nd toe osteomyelitis infection, improved on vancomycin. Cont current treatment course. Pt in agreement for toe removal. Discussed case with Dr. John who will plan to perform the surgery next . Will plan to hold Eliquis 2 days prior. Will then plan for pacer removal, then repeat blood cultures and ensure infection is cleared prior to placing PICC. (4) Acute osteomyelitis of toe of left foot: Amputation recommended, Vancomycin. (5) Acute kidney injury superimposed on CKD: improved to 1.2 despite restarting home ethycrynic acid yesterday. Lungs are more clear today. Cont daily standing weights. Cont EE at current dose. (6) Hypomagnesemia: 2/2 loop diuretic, replace and repeat in am. (7) Hypokalemia: 2/2 loop diuretic, replace and repeat in am. (8) Ischemic cardiomyopathy: history of left ventricular dysfunction noted to have reduced LV function. Cardiology consulted. Cont ethacrynic acid, carvedilol. (9) Coccyx pain: s/p fall, no fracture, Tramadol PRN (10) Anemia: At baseline, likely related to chronic disease. No indication for transfusion at this time. Cont to monitor. (11) DVT prophylaxis: Apixaban-to be held in am in preparation for procedures next week. Full Dispo-hospitalized for the next week. Liya Guillen DO [facility] Hospitalist Subjective Patient reports persistent coccyx pain but that tramadol is helping this. We reviewed her home medication list and restarted her mirtazapine. We are holding her Mirapex as she has not had this and has not had issues with cramping at night. She is tolerating p.o. She also had one episode of diarrhea today. No other issues at this time. Review of Systems Review of Systems: All systems reviewed & are unremarkable except as noted in HPI & below Physical Exam Physical Exam: CONSTITUTIONAL: WNWD, vitals as above, generally well- appearing EYES: normal conjuctivae, no scleral icterus ENT: MMM RESPIRATORY: Clear to auscultation aside from right base which has crackles pres ent. Good respiratory effort noted, no distress. No wheeze CARDIOVASCULAR: regular rate and rhythm, S1 and 2 heard without murmurs, gallops or rubs, no JVD, no peripheral edema, chronic venous stasis CHEST: inspection of chest was normal GASTROINTESTINAL: normal bowel sounds, soft, nontender, nondistended MUSCULOSKELETAL: generalized weakness, cannot sit up in bed on her own. head is normocephalic and atraumatic SKIN: warm and dry, R inguinal rash has resolved. Open toe on left second toe, wrapped with dressing that is clean and intact. NEUROLOGIC: CN 2-12 grossly intact, no gross focal deficits. PSYCHIATRIC: alert cooperative and oriented Results & Data Vital Signs (Past 12 Hours) Vital Signs Temp Pulse Resp BP BP Pulse Ox 08/12/18 11:35 36.4 C L 57 L 18 123/76 98 08/12/18 07:14 36.5 C 64 16 107/64 99 08/12/18 03:58 36.6 C 60 20 127/72 99 Laboratory Results Short CBC 08/12/18 Range/Units 08:34 WBC 10.38 (4.8-10.8) K/uL Hgb 10.5 L (12.0-16.0) g/dL Hct 31.5 L (37-47) % Plt Count 160 (130-400) K/uL BMP 08/12/18 08:34 Sodium 135 L Potassium 3.1 L D Chloride 102 Carbon Dioxide 26 BUN 56 H Creatinine 1.18 D Glucose 123 H Calcium 8.4 L Medications Administered Current Inpatient Medications Acetaminophen (Tylenol) 325 mg PO Q6H PRN PRN Reason: Pain or Fever Stop: 09/07/18 01:59 Apixaban (Eliquis) 5 mg PO BID [facility] Stop: 09/08/18 20:59 Last Admin: 08/12/18 08:08 Dose: 5 mg Documented by: Carvedilol (Coreg) 3.125 mg PO BID [facility] Stop: 09/07/18 08:59 Last Admin: 08/12/18 08:07 Dose: 3.125 mg Documented by: Dextrose (Dextrose 50%) 25 - 50 ml IV UD PRN; Protocol PRN Reason: Hypoglycemia Protocol Stop: 09/07/18 02:58 Ethacrynic Acid (Edecrin) 25 mg PO BID17 [facility] Stop: 09/10/18 12:59 Last Admin: 08/12/18 08:08 Dose: 25 mg Documented by: Glucagon (Glucagen) 1 mg SQ UD PRN; Protocol PRN Reason: Hypoglycemia Protocol Stop: 09/07/18 02:58 Glucose (Glucose 40%) 15 - 30 gm PO UD PRN; Protocol PRN Reason: Hypoglycemia Protocol Stop: 09/07/18 02:58 Glucose (Dex4 Glucose) 4 - 8 tabs PO UD PRN; Protocol PRN Reason: Hypoglycemia Protocol Stop: 09/07/18 02:58 Vancomycin HCl 1,250 mg/ (Sodium Chloride) 275 mls @ 125 mls/hr IV Q24H [facility] Stop: 09/21/18 08:59 Last Infusion: 08/12/18 11:24 Dose: Infused Documented by: Insulin Aspart (Novolog Flexpen) 0 units SC ACHS [facility] Stop: 09/07/18 02:58 Last Admin: 08/12/18 12:45 Dose: 6 units Documented by: Insulin Glargine (Lantus Solostar Pen) 10 units SC [place]; Protocol Stop: 09/11/18 08:59 Last Admin: 08/12/18 08:56 Dose: 10 units Documented by: Lactobacillus Acidophilus (Floranex) 1 tab PO BID [facility] Stop: 09/07/18 08:59 Last Admin: 08/12/18 08:06 Dose: 1 tab Documented by: Levothyroxine Sodium (Synthroid) 150 mcg PO DAILYBB [facility] Stop: 09/07/18 06:29 Last Admin: 08/12/18 06:34 Dose: 150 mcg Documented by: Miconazole Nitrate (Desenex) 1 appln EXT BID [facility] Stop: 09/07/18 02:58 Last Admin: 08/12/18 08:10 Dose: 1 appln Documented by: Miscellaneous (Carbohydrates For Hypoglycemia) 15 - 30 gm PO UD PRN PRN Reason: Hypoglycemia Treatment Stop: 09/07/18 02:58 Last Admin: 08/11/18 08:25 Dose: 15 gm Documented by: Miscellaneous Information (Consult) 1 ea N/A UD PRN PRN Reason: Consult Stop: 09/07/18 09:25 Miscellaneous Information (Consult Glycemic Management Pharmacy) 1 ea N/A UD PRN PRN Reason: Consult Stop: 09/07/18 19:22 Multivitamins (Multivitamin Tab) 1 tab PO DAILY [facility] Stop: 09/07/18 08:59 Last Admin: 08/12/18 08:06 Dose: 1 tab Documented by: Nitroglycerin (Nitrostat) 0.4 mg SL UD PRN PRN Reason: Chest Pain Stop: 09/07/18 01:59 Pregabalin (Lyrica) 300 mg PO HS [facility] Stop: 09/08/18 20:59 Last Admin: 08/11/18 21:19 Dose: 300 mg Documented by: Pregabalin (Lyrica) 150 mg PO DAILY [facility] Stop: 09/09/18 08:59 Last Admin: 08/12/18 08:06 Dose: 150 mg Documented by: Tramadol HCl (Ultram) 50 mg PO Q4H PRN PRN Reason: Pain Stop: 09/09/18 16:50 Last Admin: 08/12/18 02:39 Dose: 50 mg Documented by: Venlafaxine HCl (Effexor Extended Release) 150 mg PO DAILY [facility] Stop: 09/07/18 08:59 Last Admin: 08/12/18 08:06 Dose: 150 mg Documented by:
--- NOTE | 2018-08-12 14:17 | Pharmacy Report ---
Pharmacy Glycemic Short Note 2 - Date of Service August 12, 2018 - Glycemic Short BSG Results (Last 24 hours): 08/11/18 08/11/18 08/12/18 16:44 20:05 07:22 Glucose POC Glucose 92 161 H 149 H 08/12/18 08/12/18 08:34 11:11 Glucose 123 H POC Glucose 131 H ASSESSMENT: * Hypoglycemia resolved, likely attributable to larger lantus doses given on 08/09. Will continue with current insulin orders as I do not anticipate any a cute fluctuations in insulin needs. PLAN FOR INPATIENT GLYCEMIC CONTROL: * Hold outpatient oral diabetes medications * Basal insulin * Lantus 10 units QAM * Bolus insulin * NovoLog per scale ACHS or Q6hrs while NPO * Goal Range: Low 110 mg/dL - High 140 mg/dL * Correction Factor: 30 mg/dL/unit * Nutritional / Prandial insulin per carb ratio of 1 unit per 10 grams CHO consumed
[2018-08-12] MEDS ORDERED: PRAMIPEXOLE DIHYDROCHLO 0.5 MG TAB PO SCH (21:00)
[2018-08-12] MEDS ORDERED: MIRTAZAPINE TAB 15 MG TAB PO SCH (21:00)
[2018-08-13] MEDS: LEVOTHYROXINE SODIUM 150 MCG TABLET PO SCH (05:36)
[2018-08-13 07:00] LABS: Calcium 8.4 mg/dl (8.5-10.1); Creatinine Clr Calc Pharmacy 62.7 ml/min; Est GFR (African American) 72.8; Est GFR (Non-African American) 62.9; Magnesium 1.5 mg/dl (1.8-2.4); Potassium 3.5 mmol/L (3.5-5.1)
[2018-08-13] MEDS: TRAMADOL HCL 50 MG TABLET PO PRN ×2 (08:10→21:47)
[2018-08-13] MEDS: PREGABALIN 150 MG CAP PO SCH ×2 (08:11→21:22)
[2018-08-13] MEDS: ETHACRYNIC ACID 25 MG TAB PO SCH ×2 (08:12→17:43)
[2018-08-13] MEDS: MICONAZOLE NITRATE POWDER 43 GM EXT SCH ×2 (08:13→21:26)
[2018-08-13] MEDS: CARVEDILOL 3.125 MG TAB PO SCH ×2 (08:13→21:22)
[2018-08-13] MEDS: LACTOBACILLUS ACIDOPHILUS (FLORANEX) TAB PO SCH ×2 (08:13→21:23)
[2018-08-13] MEDS: VENLAFAXINE HCL XR 150 MG CAPXR PO SCH (08:13)
[2018-08-13] MEDS: MULTIVITAMIN TAB PO SCH (08:14)
[2018-08-13] MEDS: INSULIN GLARGINE SOLOSTAR 100 UNITS/ML 3 ML PEN SC SCH (08:16)
[2018-08-13] MEDS: INSULIN ASPART 100 UNITS/ML 3 ML PEN SC SCH ×4 (08:18→21:21)
[2018-08-13] MEDS: VANCOMYCIN HCL 1,250 MG in SODIUM CHLORIDE 0.9% 250 ML IV SCH (08:23)
[2018-08-13] MEDS ORDERED: POTASSIUM CHLORIDE 20 MEQ TABCR PO STA (10:12)
--- NOTE | 2018-08-13 10:52 | Hospitalist Progress Note ---
Date of Service August 13, 2018 Assessment & Plan (1) MRSA (methicillin resistant Staphylococcus aureus) septicemia: source 2nd toe osteomyelitis infection, improved on vancomycin. Cont current treatment course. Pt in agreement for toe removal. Discussed case with Dr. John who will plan to perform the surgery next . Will plan to hold Eliquis 2 days prior. Will then plan for pacer removal, then repeat blood cultures and ensure infection is cleared prior to placing PICC. (2) Diarrhea: Stool culture and C diff toxin are negative this admission. Persistent. Cont supportive care and replace lytes as needed. (3) Acute osteomyelitis of toe of left foot: Amputation recommended, Vancomycin. (4) Acute kidney injury superimposed on CKD: Resolved. Cont daily standing weights. Cont EE at current dose. (5) Hypomagnesemia: 2/2 loop diuretic, replace and repeat in am. (6) Hypokalemia: 2/2 loop diuretic, replace and repeat in am. (7) Ischemic cardiomyopathy: history of left ventricular dysfunction noted to have reduced LV function. Compensated. Cardiology consulted. Cont ethacrynic acid, carvedilol. (8) Coccyx pain: s/p fall, no fracture, Tramadol PRN (9) Anemia: At baseline, likely related to chronic disease. No indication for transfusion at this time. Cont to monitor. (10) DVT prophylaxis: Apixaban-to be held in am in preparation for procedures next week. Full Dispo-hospitalized for the next week. Liya Guillen DO [facility] Hospitalist Subjective Appears more depressed today Per nurse she had a fight with daughter she is upset that her family hasn't called her REports the waffle cushion in the chair is helping her tailbone pain Appears very fatigued this afternoon and again almost intoxicated Suspect restarting her mirtazapine in the context of the other medications has something to do with this so I discussed with her that we could cont to hold it and the mirapex, which she was fine with. Some loose stools today Review of Systems Review of Systems: All systems reviewed & are unremarkable except as noted in HPI & below Physical Exam Physical Exam: CONSTITUTIONAL: WNWD, vitals as above, generally well- appearing EYES: normal conjuctivae, no scleral icterus ENT: MMM RESPIRATORY: Clear to auscultation aside from right base which has crackles present. Good respiratory effort noted, no distress. No wheeze CARDIOVASCULAR: regular rate and rhythm, S1 and 2 heard without murmurs, gallops or rubs, no JVD, no peripheral edema, chronic venous stasis CHEST: inspection of chest was normal GASTROINTESTINAL: normal bowel sounds, soft, nontender, nondistended MUSCULOSKELETAL: generalized weakness, cannot sit up in bed on her own. head is normocephalic and atraumatic SKIN: warm and dry, R inguinal rash has resolved. Open toe on left second toe, wrapped with dressing that is clean and intact. NEUROLOGIC: CN 2-12 grossly intact, no gross focal deficits. PSYCHIATRIC: fatigued but oriented Results & Data Vital Signs (Past 12 Hours) Vital Signs Temp Pulse Pulse Resp BP BP Pulse Ox 08/13/18 07:42 36.6 C 75 19 122/65 100 08/13/18 04:59 37 C 64 18 111/61 97 08/13/18 02:22 67 Laboratory Results BMP 08/13/18 06:08 Sodium 140 Potassium 3.5 Chloride 106 Carbon Dioxide 28 BUN 45 H Creatinine 0.95 Glucose 146 H Calcium 8.4 L Medications Administered Current Inpatient Medications Acetaminophen (Tylenol) 325 mg PO Q6H PRN PRN Reason: Pain or Fever Stop: 09/07/18 01:59 Apixaban (Eliquis) 5 mg PO BID [facility] Stop: 09/08/18 20:59 Last Admin: 08/12/18 21:28 Dose: 5 mg Documented by: Carvedilol (Coreg) 3.125 mg PO BID [facility] Stop: 09/07/18 08:59 Last Admin: 08/13/18 08:13 Dose: 3.125 mg Documented by: Dextrose (Dextrose 50%) 25 - 50 ml IV UD PRN; Protocol PRN Reason: Hypoglycemia Protocol Stop: 09/07/18 02:58 Ethacrynic Acid (Edecrin) 25 mg PO BID17 [facility] Stop: 09/10/18 12:59 Last Admin: 08/13/18 08:12 Dose: 25 mg Documented by: Glucagon (Glucagen) 1 mg SQ UD PRN; Protocol PRN Reason: Hypoglycemia Protocol Stop: 09/07/18 02:58 Glucose (Glucose 40%) 15 - 30 gm PO UD PRN; Protocol PRN Reason: Hypoglycemia Protocol Stop: 09/07/18 02:58 Glucose (Dex4 Glucose) 4 - 8 tabs PO UD PRN; Protocol PRN Reason: Hypoglycemia Protocol Stop: 09/07/18 02:58 Vancomycin HCl 1,250 mg/ (Sodium Chloride) 275 mls @ 125 mls/hr IV Q24H [facility] Stop: 09/21/18 08:59 Last Admin: 08/13/18 08:23 Dose: 125 mls/hr Documented by: Magnesium Sulfate/Dextrose (Magnesium Sulfate / D5w) 1 gm in 100 mls @ 100 mls/hr IV Q1H [facility] Stop: 08/13/18 14:29 Insulin Aspart (Novolog Flexpen) 0 units SC ACHS [facility] Stop: 09/07/18 02:58 Last Admin: 08/13/18 08:18 Dose: 7 units Documented by: Insulin Glargine (Lantus Solostar Pen) 10 units SC QAM [facility]; Protocol Stop: 09/11/18 08:59 Last Admin: 08/13/18 08:16 Dose: 10 units Documented by: Lactobacillus Acidophilus (Floranex) 1 tab PO BID [facility] Stop: 09/07/18 08:59 Last Admin: 08/13/18 08:13 Dose: 1 tab Documented by: Levothyroxine Sodium (Synthroid) 150 mcg PO DAILYBB [facility] Stop: 09/07/18 06:29 Last Admin: 08/13/18 05:36 Dose: 150 mcg Documented by: Miconazole Nitrate (Desenex) 1 appln EXT BID [facility] Stop: 09/07/18 02:58 Last Admin: 08/13/18 08:13 Dose: Not Given Documented by: Mirtazapine (Remeron) 30 mg PO HS [facility] Stop: 09/11/18 20:59 Last Admin: 08/12/18 21:30 Dose: 30 mg Documented by: Miscellaneous (Carbohydrates For Hypoglycemia) 15 - 30 gm PO UD PRN PRN Reason: Hypoglycemia Treatment Stop: 09/07/18 02:58 Last Admin: 08/11/18 08:25 Dose: 15 gm Documented by: Miscellaneous Information (Consult) 1 ea N/A UD PRN PRN Reason: Consult Stop: 09/07/18 09:25 Miscellaneous Information (Consult Glycemic Management Pharmacy) 1 ea N/A UD PRN PRN Reason: Consult Stop: 09/07/18 19:22 Multivitamins (Multivitamin Tab) 1 tab PO DAILY [facility] Stop: 09/07/18 08:59 Last Admin: 08/13/18 08:14 Dose: 1 tab Documented by: Nitroglycerin (Nitrostat) 0.4 mg SL UD PRN PRN Reason: Chest Pain Stop: 09/07/18 01:59 Pregabalin (Lyrica) 300 mg PO HS [facility] Stop: 09/08/18 20:59 Last Admin: 08/12/18 21:29 Dose: 300 mg Documented by: Pregabalin (Lyrica) 150 mg PO DAILY [facility] Stop: 09/09/18 08:59 Last Admin: 08/13/18 08:11 Dose: 150 mg Documented by: Tramadol HCl (Ultram) 50 mg PO Q4H PRN PRN Reason: Pain Stop: 09/09/18 16:50 Last Admin: 08/13/18 08:10 Dose: 50 mg Documented by: Venlafaxine HCl (Effexor Extended Release) 150 mg PO DAILY [facility] Stop: 09/07/18 08:59 Last Admin: 08/13/18 08:13 Dose: 150 mg Documented by:
[2018-08-13] MEDS: MAGNESIUM SULFATE / D5W 1 GM/100 ML BAG IV SCH ×4 (11:21→13:33)
--- NOTE | 2018-08-13 13:32 | Pharmacy Report ---
Pharmacy Glycemic Short Note 2 - Date of Service August 13, 2018 - Glycemic Short BSG Results (Last 24 hours): 08/12/18 08/12/18 08/13/18 16:52 20:40 06:08 Glucose 146 H POC Glucose 148 H 175 H 08/13/18 08/13/18 07:20 11:21 Glucose POC Glucose 135 H 173 H ASSESSMENT: * BSGs continue to look good: [phone]/dL. She required 24 units of insulin yesterday. I do not anticipate any acute changes in insulin r equirements. Will continue with current orders. PLAN FOR INPATIENT GLYCEMIC CONTROL: * Hold outpatient oral diabetes medications * Basal insulin * Lantus 10 units QAM * Bolus insulin * NovoLog per scale ACHS or Q6hrs while NPO * Goal Range: Low 110 mg/dL - High 140 mg/dL * Correction Factor: 30 mg/dL/unit * Nutritional / Prandial insulin per carb ratio of 1 unit per 10 grams CHO consumed
[2018-08-13] MEDS ORDERED: LOPERAMIDE HCL 2 MG CAP PO STA (21:04)
[2018-08-14] MEDS: LEVOTHYROXINE SODIUM 150 MCG TABLET PO SCH (06:07)
[2018-08-14] MEDS ORDERED: VANCOMYCIN TROUGH ONE (08:30)
[2018-08-14] MEDS: LACTOBACILLUS ACIDOPHILUS (FLORANEX) TAB PO SCH ×2 (08:46→20:55)
[2018-08-14] MEDS: PREGABALIN 150 MG CAP PO SCH ×2 (08:46→20:54)
[2018-08-14] MEDS: ETHACRYNIC ACID 25 MG TAB PO SCH ×2 (08:47→17:53)
[2018-08-14] MEDS: VENLAFAXINE HCL XR 150 MG CAPXR PO SCH (08:47)
[2018-08-14] MEDS: CARVEDILOL 3.125 MG TAB PO SCH ×2 (08:48→20:55)
[2018-08-14] MEDS: MULTIVITAMIN TAB PO SCH (08:49)
[2018-08-14] MEDS: VANCOMYCIN HCL 1,250 MG in SODIUM CHLORIDE 0.9% 250 ML IV SCH (08:49)
[2018-08-14] MEDS: INSULIN GLARGINE SOLOSTAR 100 UNITS/ML 3 ML PEN SC SCH (08:50)
[2018-08-14 08:53] LABS: Hematocrit (blood only) 31.9 % (37-47); Hemoglobin 10.3 g/dL (12.0-16.0); Mean Corpuscular Hgb Conc 32.3 g/dL (32-36); Mean Corpuscular Volume 73.7 fL (80-100); Platelet Count 220 K/uL (130-400); RDW Coefficient of Variation 19.9 % (11.5-14.5); RDW Standard Deviation 53.5 fL (36.4-46.3); Red Blood Count 4.33 M/uL (4.2-5.4); White Blood Count 13.76 K/uL (4.8-10.8)
[2018-08-14] MEDS: INSULIN ASPART 100 UNITS/ML 3 ML PEN SC SCH ×4 (08:53→21:59)
[2018-08-14] MEDS: MICONAZOLE NITRATE POWDER 43 GM EXT SCH ×2 (08:55→20:56)
[2018-08-14] MEDS ORDERED: ENOXAPARIN INJ 40 MG/0.4 ML SYR SQ ONE (09:00)
[2018-08-14] MEDS: TRAMADOL HCL 50 MG TABLET PO PRN (09:02)
[2018-08-14 09:26] LABS: Potassium 3.6 mmol/L (3.5-5.1)
[2018-08-14 09:27] LABS: BUN Creatinine Ratio 34.7 (10-20); Calcium 8.4 mg/dl (8.5-10.1); Creatinine Clr Calc Pharmacy 69.9 ml/min; Est GFR (African American) 82.2; Est GFR (Non-African American) 70.9; Magnesium 1.5 mg/dl (1.8-2.4)
--- NOTE | 2018-08-14 09:36 | Surgery Progress Note ---
Date of Service August 14, 2018 Assessment & Plan (1) MRSA (methicillin resistant Staphylococcus aureus) septicemia: left second toe amputation tomorrow by Dr. Brii Lundberg held Subjective wants to proceed with amputation Physical Exam Musculoskeletal: Extremities: + foot abnormality Left (second toe ulceration) Results & Data Vital Signs (Past 12 Hours) Vital Signs Temp Pulse Pulse Resp BP Pulse Ox 08/14/18 07:00 36.9 C 78 18 116/68 97 08/14/18 04:36 36.7 C 71 20 125/62 96 08/14/18 02:08 75 08/13/18 23:00 36.7 C 73 20 126/65 99
--- NOTE | 2018-08-14 10:27 | Pharmacy Report ---
Pharmacy Abx Dose Short Note - Date of Service August 14, 2018 - Assessment & Plan Assessment 67 year old F receiving Vancomycin 1250mg Q24h for treatment of MRSA bacteremia. Day # 7 of antimicrobial therapy. Laboratory Tests 08/14/18 08:40 Vancomycin Trough 15.1 Plan Vancomycin * Trough level of 15.1 mcg/mL is still therapeutic, but prefer to be more aggressive for indication. * Please note that 0900 dose was actually hung at 0823, while trough was drawn at 0840. Despite the level being drawn 20 minutes after the dose was hung, trough has still dropped more than anticipated (from 18 on 08/12). * Believe this is due to patient's improved renal function over the last several days (SCr 1.18 >> 0.86). * Change to 1250mg every 18 hours * Goal trough level : 15 to 20 mcg/mL * Trough or random level ordered for: 08/15/18 before 2100 dose. Pharmacy will continue to follow and will adjust dose/frequency as necessary. Thank you.
--- NOTE | 2018-08-14 14:14 | Hospitalist Progress Note ---
Date of Service August 14, 2018 Assessment & Plan (1) MRSA (methicillin resistant Staphylococcus aureus) septicemia: source 2nd toe osteomyelitis infection, improved on vancomycin. Cont current treatment course. Pt in agreement for toe removal. Discussed case with Dr. John who will plan to perform the surgery next . Will plan to hold Eliquis 2 days prior. Will then plan for pacer removal, then repeat blood cultures and ensure infection is cleared prior to placing PICC. (2) Diarrhea: Stool culture and C diff toxin are negative this admission. Persistent. Cont supportive care and replace lytes as needed. (3) Acute osteomyelitis of toe of left foot: Amputation recommended, Vancomycin. (4) Acute kidney injury superimposed on CKD: Resolved. Cont daily standing weights. Cont EE at current dose. (5) Hypomagnesemia: 2/2 loop diuretic, replace and repeat in am. (6) Hypokalemia: 2/2 loop diuretic, replace and repeat in am. (7) Ischemic cardiomyopathy: history of left ventricular dysfunction noted to have reduced LV function. Compensated. Cardiology consulted. Cont ethacrynic acid, carvedilol. (8) Coccyx pain: s/p fall, no fracture, Tramadol PRN (9) Anemia: At baseline, likely related to chronic disease. No indication for transfusion at this time. Cont to monitor. (10) DVT prophylaxis: Apixaban-to be held in am in preparation for procedures next week. Full Dispo-hospitalized for the next week. Liya Guillen DO [facility] Hospitalist Subjective Somewhat depressed affect per nursing staff afebrile planned to have surgery in am Results & Data Vital Signs (Past 12 Hours) Vital Signs Temp Pulse Resp BP Pulse Ox 08/14/18 12:27 36.6 C 70 20 120/67 96 08/14/18 07:00 36.9 C 78 18 116/68 97 08/14/18 04:36 36.7 C 71 20 125/62 96 Laboratory Results Short CBC 08/14/18 Range/Units 08:40 WBC 13.76 H (4.8-10.8) K/uL Hgb 10.3 L (12.0-16.0) g/dL Hct 31.9 L (37-47) % Plt Count 220 (130-400) K/uL BMP 08/14/18 08:40 Sodium 141 Potassium 3.6 Chloride 105 Carbon Dioxide 30 BUN 30 H Creatinine 0.86 Glucose 146 H Calcium 8.4 L Medications Administered Current Inpatient Medications Acetaminophen (Tylenol) 325 mg PO Q6H PRN PRN Reason: Pain or Fever Stop: 09/07/18 01:59 Apixaban (Eliquis) 5 mg PO BID [facility] Stop: 09/08/18 20:59 Last Admin: 08/12/18 21:28 Dose: 5 mg Documented by: Carvedilol (Coreg) 3.125 mg PO BID [facility] Stop: 09/07/18 08:59 Last Admin: 08/14/18 08:48 Dose: 3.125 mg Documented by: Dextrose (Dextrose 50%) 25 - 50 ml IV UD PRN; Protocol PRN Reason: Hypoglycemia Protocol Stop: 09/07/18 02:58 Ethacrynic Acid (Edecrin) 25 mg PO BID17 [facility] Stop: 09/10/18 12:59 Last Admin: 08/14/18 08:47 Dose: 25 mg Documented by: Glucagon (Glucagen) 1 mg SQ UD PRN; Protocol PRN Reason: Hypoglycemia Protocol Stop: 09/07/18 02:58 Glucose (Glucose 40%) 15 - 30 gm PO UD PRN; Protocol PRN Reason: Hypoglycemia Protocol Stop: 09/07/18 02:58 Glucose (Dex4 Glucose) 4 - 8 tabs PO UD PRN; Protocol PRN Reason: Hypoglycemia Protocol Stop: 09/07/18 02:58 Vancomycin HCl 1,250 mg/ (Sodium Chloride) 275 mls @ 125 mls/hr IV Q18H [facility] Stop: 09/26/18 02:59 Insulin Aspart (Novolog Flexpen) 0 units SC ACHS [facility] Stop: 09/07/18 02:58 Last Admin: 08/14/18 13:08 Dose: 5 units Documented by: Insulin Glargine (Lantus Solostar Pen) 8 units SC QAM [facility]; Protocol Stop: 09/14/18 08:59 Lactobacillus Acidophilus (Floranex) 1 tab PO BID [facility] Stop: 09/07/18 08:59 Last Admin: 08/14/18 08:46 Dose: 1 tab Documented by: Levothyroxine Sodium (Synthroid) 150 mcg PO DAILYBB [facility] Stop: 09/07/18 06:29 Last Admin: 08/14/18 06:07 Dose: 150 mcg Documented by: Miconazole Nitrate (Desenex) 1 appln EXT BID [facility] Stop: 09/07/18 02:58 Last Admin: 08/14/18 08:55 Dose: Not Given Documented by: Miscellaneous (Carbohydrates For Hypoglycemia) 15 - 30 gm PO UD PRN PRN Reason: Hypoglycemia Treatment Stop: 09/07/18 02:58 Last Admin: 08/11/18 08:25 Dose: 15 gm Documented by: Miscellaneous Information (Consult) 1 ea N/A UD PRN PRN Reason: Consult Stop: 09/07/18 09:25 Miscellaneous Information (Consult Glycemic Management Pharmacy) 1 ea N/A UD PRN PRN Reason: Consult Stop: 09/07/18 19:22 Multivitamins (Multivitamin Tab) 1 tab PO DAILY [facility] Stop: 09/07/18 08:59 Last Admin: 08/14/18 08:49 Dose: 1 tab Documented by: Nitroglycerin (Nitrostat) 0.4 mg SL UD PRN PRN Reason: Chest Pain Stop: 09/07/18 01:59 Pregabalin (Lyrica) 300 mg PO HS [facility] Stop: 09/08/18 20:59 Last Admin: 08/13/18 21:22 Dose: 300 mg Documented by: Pregabalin (Lyrica) 150 mg PO DAILY [facility] Stop: 09/09/18 08:59 Last Admin: 08/14/18 08:46 Dose: 150 mg Documented by: Tramadol HCl (Ultram) 50 mg PO Q4H PRN PRN Reason: Pain Stop: 09/09/18 16:50 Last Admin: 08/14/18 09:02 Dose: 50 mg Documented by: Venlafaxine HCl (Effexor Extended Release) 150 mg PO DAILY [facility] Stop: 09/07/18 08:59 Last Admin: 08/14/18 08:47 Dose: 150 mg Documented by:
--- NOTE | 2018-08-14 15:27 | Anesthesiology Consultation ---
Date of Service August 14, 2018 Assessment & Plan (1) Encounter for pre-operative examination: Chart Review Chart Review: Acceptable Risk for Surgery and Patient NOT seen in Pre Admission Testing Consults Requested none Proposed Anesthesia Risk / Benefits Reviewed With: PT / POA / Parent / Guardian, Accepts Plan and Informed Consent Obtained Additional Notes Cardiology is hoping that it will be possible to combine the patients scheduled toe amputation with removal of her AICD. Will pass this information on to the OR team. History Surgery Operation Date: 08/15/18 12:20 Proposed Procedures p Left Foot Second Toe Amputation - Mckay Teresa MD Height/Weight Height: 5 ft 4 in Weight: 87.8 kg Allergies Allergy/AdvReac Type Severity Reaction Status Date / Time clindamycin Allergy Severe RASH, Verified 06/16/18 10:10 DELUSIONAL, CONVULSIONS Egg Derived Allergy Severe ANAPHYLAXIS Verified 06/16/18 10:10 furosemide Allergy Severe ANAPHYLAXIS Verified 06/16/18 10:10 rosuvastatin Allergy Severe LEG Unverified 06/16/18 10:10 WEAKNESS simvastatin Allergy Severe LEG Unverified 06/16/18 10:10 WEAKNESS Bactrim Allergy Intermediate RASH Verified 04/13/17 16:00 sulfamethoxazole Allergy Intermediate RASH Verified 06/16/18 10:10 trimethoprim Allergy Intermediate RASH Verified 06/16/18 10:10 amoxicillin Allergy Unknown . Verified 06/16/18 10:10 atorvastatin Allergy Unknown acute Verified 06/16/18 10:10 renal failure clavulanic acid Allergy Unknown . Verified 06/16/18 10:10 egg Allergy Unknown _ Verified 06/16/18 10:10 latex Allergy Unknown RASH Verified 06/16/18 10:10 losartan Allergy Unknown Unknown Verified 08/07/18 21:01 Penicillins Allergy Unknown unknown Verified 06/16/18 10:10 pravastatin Allergy Unknown Unknown Verified 08/07/18 21:01 triamcinolone Allergy Unknown RASH Verified 06/16/18 10:10 nickel Allergy Redness of Verified 06/16/18 10:10 Skin capsaicin AdvReac Severe SKIN Verified 06/16/18 10:10 SLOTHED FROM HEEL diclofenac AdvReac Severe SKIN Verified 06/16/18 10:10 SLOTHED FROM HEEL Diclopak AdvReac Severe SKIN Verified 04/13/17 16:00 SLOTHED FROM HEEL isopropyl alcohol AdvReac Severe SKIN Verified 06/16/18 10:10 SLOTHED FROM HEEL propylene glycol AdvReac Severe SKIN Verified 06/16/18 10:10 SLOTHED FROM HEEL acetaminophen AdvReac Mild VOMITING Verified 06/16/18 10:10 Medications Home Medications Medication Instructions Recorded Confirmed Last Taken Eliquis 5 mg PO BID 06/05/18 08/07/18 06/04/18 21:00 5 mg Probiotic 1 cap PO BID 06/05/18 08/07/18 06/04/18 17:00 1 tab Trulicity 0.75 mg SUBCUT WK 06/05/18 08/07/18 06/01/18 10:00 0.75 mg albuterol sulfate 1 - 2 puff INHALATION .Q4-6HRS PRN 06/05/18 08/07/18 Unknown calcium citrate 400 mg PO BID 06/05/18 08/07/18 06/04/18 16:00 400 mg carvedilol [Coreg] 6.25 mg PO BID 06/05/18 08/07/18 06/04/18 21:00 6.25 mg ergocalciferol (vitamin D2) 50,000 units PO WK 06/05/18 08/07/18 05/30/18 10:00 50,000 units ethacrynic acid 25 mg PO BID 06/05/18 08/07/18 06/04/18 16:00 50 mg levothyroxine 150 mcg PO DAILY 06/05/18 08/07/18 06/05/18 06:00 150 mcg mirtazapine 30 mg PO HS 06/05/18 08/07/18 06/04/18 21:00 30 mg multivitamin 1 tab PO DAILY 06/05/18 08/07/18 06/04/18 10:00 potassium chloride 20 meq PO BID 06/05/18 08/07/18 06/04/18 17:00 20 meq pramipexole 0.75 mg PO HS 06/05/18 08/07/18 06/04/18 21:00 1.5 mg venlafaxine 150 mg PO DAILY 06/05/18 08/07/18 06/04/18 10:00 150 mg magnesium oxide 400 mg PO TID 08/07/18 08/07/18 Unknown pregabalin [Lyrica] 150 mg PO QAM 08/07/18 08/09/18 Unknown pregabalin 300 mg PO HS 08/09/18 08/09/18 Unknown Active Medications Generic Name Dose Route Start Last Admin Trade Name Freq PRN Reason Stop Dose Admin Apixaban 5 mg 08/09/18 21:00 08/12/18 21:28 Eliquis PO 09/08/18 20:59 5 mg BID MARITZA Administration Carvedilol 3.125 mg 08/08/18 09:00 08/14/18 08:48 Coreg PO 09/07/18 08:59 3.125 mg BID MARITZA Administration Ethacrynic Acid 25 mg 08/11/18 13:00 08/14/18 08:47 Edecrin PO 09/10/18 12:59 25 mg BID17 MARITZA Administration Insulin Aspart 0 units 08/08/18 02:59 08/14/18 13:08 Novolog Flexpen SC 09/07/18 02:58 5 units ACHS MARITZA Administration Lactobacillus Acidophilus 1 tab 08/08/18 09:00 08/14/18 08:46 Floranex PO 09/07/18 08:59 1 tab BID MARITZA Administration Levothyroxine Sodium 150 mcg 08/08/18 06:30 08/14/18 06:07 Synthroid PO 09/07/18 06:29 150 mcg DAILYBB MARITZA Administration Miconazole Nitrate 1 appln 08/08/18 02:59 08/14/18 08:55 Desenex EXT 09/07/18 02:58 Not Given BID MARITZA Miscellaneous 15 - 30 gm 08/08/18 02:59 08/11/18 08:25 Carbohydrates For Hypoglycemia PO 09/07/18 02:58 15 gm UD PRN Administration Hypoglycemia Treatment Multivitamins 1 tab 08/08/18 09:00 08/14/18 08:49 Multivitamin Tab PO 09/07/18 08:59 1 tab DAILY MARITZA Administration Pregabalin 300 mg 08/09/18 21:00 08/13/18 21:22 Lyrica PO 09/08/18 20:59 300 mg HS MARITZA Administration Pregabalin 150 mg 08/10/18 09:00 08/14/18 08:46 Lyrica PO 09/09/18 08:59 150 mg DAILY MARITZA Administration Tramadol HCl 50 mg 08/10/18 16:51 08/14/18 09:02 Ultram PO 09/09/18 16:50 50 mg Q4H PRN Administration Pain Venlafaxine HCl 150 mg 08/08/18 09:00 08/14/18 08:47 Effexor Extended Release PO 09/07/18 08:59 150 mg DAILY MARITZA Administration Past Medical History Medical History Paroxysmal atrial fibrillation (Chronic) History of hysterectomy (Chronic) Thrombophlebitis arm (Resolved) Staphylococcus aureus septicemia (Resolved) 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) Pleural effusion (Resolved) Toe ulcer due to DM (Acute) 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 Past Family History Family History Father Myocardial infarction Past Surgical History Surgical History H/O Achilles tendon repair (Chronic) AICD (automatic cardioverter/defibrillator) present (Chronic) S/P rotator cuff repair (Chronic) S/P CABG x 4 (Chronic) Past Anesthesia History Other remote history of awareness under anesthesia History of PONV No Hx of PONV and No Hx of Motion Sickness Social History Smoking Status: Former smoker Hx Alcohol Use: No Hx Substance Use: No substance use type: does not use Review of Systems Positive for symptoms of GERD Physical Exam Vital Signs Last Vital Signs Temp 36.8 C 08/14/18 14:53 Pulse 68 08/14/18 14:53 Resp 20 08/14/18 14:53 BP 119/57 L 08/14/18 14:53 Pulse Ox 100 08/14/18 14:53 Constitutional + obese ENMT Mouth: no TMJ abnormality and oral opening not small Thyromental Distance: > or= 3.5 Finger Breadths Mallampati Class: II Neck normal visual inspection; neck extension not limited Respiratory normal respiratory effort Auscultation: lungs clear to auscultation bilaterally Cardiovascular Rate/Rhythm: regular rate and regular rhythm Heart Sounds: no murmur Chest (Breasts) Chest: + pacemaker Neurologic moves all extremities Motor/Sensory: no sensory deficit Psychiatric Orientation: alert and oriented x 3 Testing Laboratory Results 08/14/18 08:40 08/14/18 08:40 08/07/18 08/08/18 20:31 05:20 PT 15.3 H INR 1.5 H APTT 29.6 Urine Color Dark Yellow Urine Appearance Clear Urine pH 5.0 Ur Specific [place] 1.021 Urine Protein 1+ H Urine Glucose (UA) Negative Urine Ketones Negative Urine Nitrite Negative Ur Leukocyte Esterase Negative Urine WBC (Auto) 1-5 Urine RBC (Auto) 5-10 H U Hyaline Cast (Auto) 10-30 H U Epithel Cells (Auto) 0-5 Urine Bacteria (Auto) Negative 08/11/18 18:45 Shiga Toxin Test - Final Stool Stool Culture - Final No Salmonella isolated, No Shigella isolated, No Campylobacter jejuni isolated. 08/10/18 07:11 Aerobic Blood Culture - Final Blood Staph aureus MRSA Anaerobic Blood Culture - Preliminary No growth in Anaerobic bottle after 48 hours. 08/10/18 07:01 Aerobic Blood Culture - Final Blood Staph aureus MRSA Anaerobic Blood Culture - Preliminary No growth in Anaerobic bottle after 48 hours. 08/11/18 18:45 WBC Smear - Final Stool 08/09/18 07:45 Aerobic Blood Culture - Preliminary Blood Staph aureus MRSA Anaerobic Blood Culture - Preliminary No growth in Anaerobic bottle after 48 hours. 08/09/18 07:28 Aerobic Blood Culture - Preliminary Blood Staph aureus MRSA Anaerobic Blood Culture - Preliminary No growth in Anaerobic bottle after 48 hours. 08/07/18 21:52 Aerobic Blood Culture - Final Blood Staph aureus MRSA Anaerobic Blood Culture - Final Staph aureus MRSA 08/07/18 21:33 Aerobic Blood Culture - Final Blood Staph aureus MRSA Anaerobic Blood Culture - Final Staph aureus MRSA Electrocardiogram Date: 08/07/18 Findings: + ST @ (102) Low voltage QRS, When compared with ECG of 07-JUN-2018 12:54, Less artifact is now present Chest X-Ray Date: 08/07/18 Left subclavian implanted cardiac defibrillator with single lead to the right ventricular apex. Median sternotomy wires and bypass graft rings noted. Cardiac silhouette moderately enlarged. Pulmonary vascular prominence. Bronchial wall cuffing also suggested. Improved aeration of the right lung base. No new focal opacity. No large effusion or pneumothorax. Degenerative changes of the thoracic spine. Upper abdomen normal. IMPRESSION: 1. Cardiomegaly with volume overload and mild congestive change. No pulmonary edema. 2. Improved aeration at the right lung base in comparison the prior. Echocardiogram Date: 08/08/18 EF: 20-25% Valvular Disease: + MR (moderate) Left ventricle is mildly dilated, left ventricular systolic function is severely reduced, severe global hypokinesis of the left ventricle, RV systolic function is mildly reduced, mild TR, moderate MR, no significant aortic sclerosis
--- NOTE | 2018-08-14 16:05 | Infectious Disease Progress Nt ---
Date of Service August 14, 2018 Assessment & Plan (1) MRSA (methicillin resistant Staphylococcus aureus) septicemia: Patient with MRSA sepsis, likely source is osteomyelitis of the toe. Agree with need for amputation and removal of ICD as both potential sources for persistent infection. We will continue on vancomycin. Will follow. (2) Acute osteomyelitis of toe of left foot: Subjective Patient seen in follow-up for MRSA sepsis. Complaining of buttock pain, no significant pain in her foot at present. Remains afebrile. Tolerating antibiotics without apparent difficulty. Review of Systems Review of Systems: All systems reviewed & are unremarkable except as noted in HPI & below Physical Exam Constitutional: WD/WN, vitals as above comfortable; no acute distress Eyes: PERRL, conjunctivae normal, anicteric sclerae ENMT: external ear and nose normal, oropharynx normal Neck: trachea midline, no thyromegaly neck nontender Respiratory: normal respiratory effort, lungs clear to auscultation normal percussion; no respiratory distress and does not use accessory muscles Cardiovascular: Rate/Rhythm: regular rate and regular rhythm Heart Sounds: normal S1 and normal S2; no gallop, no murmur and no cardiac rub Vessels: normal peripheral pulses; no JVD Gastrointestinal (Abdomen): normal bowel sounds, soft, nontender, no hepatosplenomegaly Musculoskeletal: no cyanosis or clubbing, extremities motor strength 5/5 Spine: thoracic spine normal to inspection and lumbar spine normal to inspection; no cervical spinal tenderness Skin: no rashes, warm and dry normal turgor and + wound (Tip of left second toe); no rashes and no lesions Neurologic: patellar DTR's 2+ bilat, sensation intact moves all extremities and awake; no focal motor deficits Motor/Sensory: no sensory deficit Psychiatric: A+Ox3, euthymic affect Orientation: cooperative Lymphatic: no cervical or axillary lymphadenopathy no inguinal lymphadenopathy Results & Data Vital Signs (Past 12 Hours) Vital Signs Temp Pulse Resp BP BP Pulse Ox 08/14/18 14:53 36.8 C 68 20 119/57 L 100 08/14/18 12:27 36.6 C 70 20 120/67 96 08/14/18 07:00 36.9 C 78 18 116/68 97 08/14/18 04:36 36.7 C 71 20 125/62 96 Laboratory Results Short CBC 08/14/18 Range/Units 08:40 WBC 13.76 H (4.8-10.8) K/uL Hgb 10.3 L (12.0-16.0) g/dL Hct 31.9 L (37-47) % Plt Count 220 (130-400) K/uL BMP 08/14/18 08:40 Sodium 141 Potassium 3.6 Chloride 105 Carbon Dioxide 30 BUN 30 H Creatinine 0.86 Glucose 146 H Calcium 8.4 L Diagnostic Findings Microbiology 08/11/18 18:45 Stool Shiga Toxin Test - Final 08/11/18 18:45 Stool Stool Culture - Final No Salmonella isolated, No Shigella isolated, No Campylobacter jejuni isolated. 08/10/18 07:11 Blood Aerobic Blood Culture - Final Staph aureus MRSA 08/10/18 07:11 Blood Anaerobic Blood Culture - Preliminary No growth in Anaerobic bottle after 48 hours. 08/10/18 07:01 Blood Aerobic Blood Culture - Final Staph aureus MRSA 08/10/18 07:01 Blood Anaerobic Blood Culture - Preliminary No growth in Anaerobic bottle after 48 hours. 08/11/18 18:45 Stool WBC Smear - Final 08/09/18 07:45 Blood Aerobic Blood Culture - Preliminary Staph aureus MRSA 08/09/18 07:45 Blood Anaerobic Blood Culture - Preliminary No growth in Anaerobic bottle after 48 hours. 08/09/18 07:28 Blood Aerobic Blood Culture - Preliminary Staph aureus MRSA 08/09/18 07:28 Blood Anaerobic Blood Culture - Preliminary No growth in Anaerobic bottle after 48 hours. 08/07/18 21:52 Blood Aerobic Blood Culture - Final Staph aureus MRSA 08/07/18 21:52 Blood Anaerobic Blood Culture - Final Staph aureus MRSA 08/07/18 21:33 Blood Aerobic Blood Culture - Final Staph aureus MRSA 08/07/18 21:33 Blood Anaerobic Blood Culture - Final Staph aureus MRSA
[2018-08-14] MEDS ORDERED: MAGNESIUM SULFATE / D5W 1 GM/100 ML BAG IV STA (16:51)
[2018-08-14] MEDS: MAGNESIUM SULFATE / D5W 1 GM/100 ML BAG IV SCH ×4 (17:46→21:56)
--- NOTE | 2018-08-14 20:56 | Cardiology Progress Note ---
Date of Service August 14, 2018 Assessment & Plan (1) AICD (automatic cardioverter/defibrillator) present: Plan for device removal tomorrow. Possibly to immediately follow toe amputation. I believe her piedad-procedural cardiac risk is low. No active anginal symptoms. Mild CHF without dyspnea. Her device was placed for primary prevention. No pacing or pacing indication. NO plans for immediate re-implant. I think we will follow her clinical course first and re-address the situation once her infection has cleared. I don't believe she requires a LifeVest in the interim. (2) Chronic combined systolic (congestive) and diastolic (congestive) heart failure: Will re-assess post-op. May need to increase diuretic. WIll increase BB if her pressures continue to be good. (3) CAD (coronary artery disease): History of surgical revascularization. No current symptoms suggestive of coronary insufficiency or angina (4) PAF (paroxysmal atrial fibrillation): Maintaining sinus rhythm I will be away from the hospital for the next 2 days. I would address any questions regarding this patient's management to the [facility] lead loader senior instructional designer. Subjective She reports feeling well this evening. No dyspnea. Some ambulation with a walker. Review of Systems Review of Systems: Per HPI. No pain at implant site. Physical Exam Physical Exam: Alert. Answered questions appropriately Lungs: Crackles at the bases bilaterally Cardiac: regular. No murmur Chest: ICD implant site without erythema or swelling. Non-tender. Results & Data Vital Signs (Past 12 Hours) Vital Signs Temp Pulse Resp BP BP Pulse Ox 08/14/18 19:21 37 C 73 18 119/68 100 08/14/18 14:53 36.8 C 68 20 119/57 L 100 08/14/18 12:27 36.6 C 70 20 120/67 96 Laboratory Results Abnormal Lab Results 08/14/18 08/14/18 08/14/18 07:15 08:40 08:40 WBC 13.76 H RBC 4.33 Hgb 10.3 L Hct 31.9 L MCV 73.7 L MCH 23.8 L MCHC 32.3 RDW Std Deviation 53.5 H RDW Coeff of [place] 19.9 H Plt Count 220 Sodium Potassium Chloride Carbon Dioxide Anion Gap BUN Creatinine Est Cr Clr Drug Dosing Est GFR ( Amer) Est GFR (Non-Af Amer) BUN/Creatinine Ratio Glucose POC Glucose 91 Calcium Magnesium Vancomycin Trough 15.1 08/14/18 08/14/18 08/14/18 08:40 11:25 16:34 WBC RBC Hgb Hct MCV MCH MCHC RDW Std Deviation RDW Coeff of [place] Plt Count Sodium 141 Potassium 3.6 Chloride 105 Carbon Dioxide 30 Anion Gap 5.0 BUN 30 H Creatinine 0.86 Est Cr Clr Drug Dosing 69.9 Est GFR ( Amer) 82.2 Est GFR (Non-Af Amer) 70.9 BUN/Creatinine Ratio 34.7 H Glucose 146 H POC Glucose 136 H 117 H Calcium 8.4 L Magnesium 1.5 L Vancomycin Trough (1) CAD (coronary artery disease) Coronary Disease-Associated Artery/Lesion type: [place] artery [place] vs. transplanted heart: [place] heart Associated angina: without angina Qualified Code(s): I25.10 - Atherosclerotic heart disease of [place] coronary artery without angina pectoris
--- NOTE | 2018-08-14 23:13 | Hospitalist Progress Note ---
Date of Service August 14, 2018 Assessment & Plan (1) MRSA (methicillin resistant Staphylococcus aureus) septicemia: Mostly from left 2nd toe. On iv vancomycin. Plan for left 2nd toe amputation today Present on Admission?: Yes (2) Acute osteomyelitis of toe of left foot: On Vancomycin. Plan for amputation today Present on Admission?: Yes (3) AICD (automatic cardioverter/defibrillator) present: Plan for taking out AICD today after amputation of the toe Replacement as per cardiology No need for life vest interim as per cardiology Present on Admission?: Yes (4) Coccyx pain: s/p fall no fracture pain control Present on Admission?: Yes (5) Ischemic cardiomyopathy: Reduced Left ventricular function stable Present on Admission?: Yes (6) DVT prophylaxis: On eliquis which to be held for procdures in am scds Present on Admission?: Yes Subjective Patient sitting on the chair comfortably Denies any chest pain or sob No nausea NO cough Eating ok Afebrile awaiting procedures in am ' Review of Systems Review of Systems: NEEDS EDITING Constitutional- no fever Pulmonary- no cough, no shortness of breath Cardiac- no chest pain, no palpitations GI- no nausea, no vomiting, no diarrhea - no dysuria, no hematuria Neuro- no headaches, no focal neurologic symptoms Physical Exam Physical Exam: NEEDS EDITING General- Not in distress Head- atraumatic Neck- supple, No masses seen Lungs- clear to auscultation and percussion Heart- regular rhythm; no murmur, no gallop, no rub appreciated Abdomen- normal bowel sounds, soft, nontender, no masses Extremities-Lower extremity edema present, mild erythema seen Neuro- alert, oriented x 3;Non focal Skin- warm & dry Results & Data Vital Signs (Past 12 Hours) Vital Signs Temp Pulse Resp BP BP Pulse Ox 08/14/18 19:21 37 C 73 18 119/68 100 08/14/18 14:53 36.8 C 68 20 119/57 L 100 08/14/18 12:27 36.6 C 70 20 120/67 96 Laboratory Results Laboratory Results - last 24 hr 08/14/18 08/14/18 08/14/18 07:15 08:40 08:40 WBC 13.76 H RBC 4.33 Hgb 10.3 L Hct 31.9 L MCV 73.7 L MCH 23.8 L MCHC 32.3 RDW Std Deviation 53.5 H RDW Coeff of [place] 19.9 H Plt Count 220 Sodium Potassium Chloride Carbon Dioxide Anion Gap BUN Creatinine Est Cr Clr Drug Dosing Est GFR ( Amer) Est GFR (Non-Af Amer) BUN/Creatinine Ratio Glucose POC Glucose 91 Calcium Magnesium Vancomycin Trough 15.1 08/14/18 08/14/18 08/14/18 08:40 11:25 16:34 WBC RBC Hgb Hct MCV MCH MCHC RDW Std Deviation RDW Coeff of [place] Plt Count Sodium 141 Potassium 3.6 Chloride 105 Carbon Dioxide 30 Anion Gap 5.0 BUN 30 H Creatinine 0.86 Est Cr Clr Drug Dosing 69.9 Est GFR ( Amer) 82.2 Est GFR (Non-Af Amer) 70.9 BUN/Creatinine Ratio 34.7 H Glucose 146 H POC Glucose 136 H 117 H Calcium 8.4 L Magnesium 1.5 L Vancomycin Trough 08/14/18 20:25 WBC RBC Hgb Hct MCV MCH MCHC RDW Std Deviation RDW Coeff of [place] Plt Count Sodium Potassium Chloride Carbon Dioxide Anion Gap BUN Creatinine Est Cr Clr Drug Dosing Est GFR ( Amer) Est GFR (Non-Af Amer) BUN/Creatinine Ratio Glucose POC Glucose 145 H Calcium Magnesium Vancomycin Trough
[2018-08-15] MEDS: VANCOMYCIN HCL 1,250 MG in SODIUM CHLORIDE 0.9% 250 ML IV SCH ×2 (02:12→21:29)
[2018-08-15] MEDS: LEVOTHYROXINE SODIUM 150 MCG TABLET PO SCH (04:36)
[2018-08-15] MEDS ORDERED: Nursing to Pharmacy Communication ONE ×2 (06:25→15:34)
[2018-08-15] MEDS: INSULIN ASPART 100 UNITS/ML 3 ML PEN SC SCH ×4 (06:35→22:02)
[2018-08-15] MEDS: ETHACRYNIC ACID 25 MG TAB PO SCH ×2 (08:06→19:26)
[2018-08-15] MEDS: LACTOBACILLUS ACIDOPHILUS (FLORANEX) TAB PO SCH ×2 (08:06→21:41)
[2018-08-15] MEDS: MICONAZOLE NITRATE POWDER 43 GM EXT SCH ×2 (08:06→21:42)
[2018-08-15] MEDS: CARVEDILOL 3.125 MG TAB PO SCH ×2 (08:06→21:42)
[2018-08-15] MEDS: VENLAFAXINE HCL XR 150 MG CAPXR PO SCH (08:06)
[2018-08-15] MEDS: MULTIVITAMIN TAB PO SCH (08:07)
[2018-08-15] MEDS: PREGABALIN 150 MG CAP PO SCH ×2 (08:11→21:34)
[2018-08-15] MEDS: TRAMADOL HCL 50 MG TABLET PO PRN ×2 (08:11→19:36)
[2018-08-15] MEDS ORDERED: INSULIN GLARGINE SOLOSTAR 100 UNITS/ML 3 ML PEN SC SCH (09:00)
[2018-08-15 09:50] LABS: Hematocrit (blood only) 33.3 % (37-47); Hemoglobin 10.8 g/dL (12.0-16.0); Mean Corpuscular Hgb Conc 32.4 g/dL (32-36); Mean Corpuscular Volume 74.3 fL (80-100); Platelet Count 231 K/uL (130-400); RDW Coefficient of Variation 19.7 % (11.5-14.5); RDW Standard Deviation 53.7 fL (36.4-46.3); Red Blood Count 4.48 M/uL (4.2-5.4); White Blood Count 13.92 K/uL (4.8-10.8)
[2018-08-15 10:21] LABS: BUN Creatinine Ratio 28.9 (10-20); Calcium 8.5 mg/dl (8.5-10.1); Creatinine Clr Calc Pharmacy 80.2 ml/min; Est GFR (African American) 96.9; Est GFR (Non-African American) 83.6; Magnesium 1.6 mg/dl (1.8-2.4); Potassium 3.8 mmol/L (3.5-5.1)
[2018-08-15] MEDS ORDERED: ePHEDrine sulfate 50 MG/ML AMP IV PRN (11:11)
[2018-08-15] MEDS ORDERED: ATROPINE SULFATE 0.1 MG/ML 10ML SYR IV PRN (11:11)
--- NOTE | 2018-08-15 11:29 | Pharmacy Report ---
Glycemic Control Progress Note - Date of Service August 15, 2018 - Scope Glycemic Pharmacist consulted for glycemic control to write orders per [facility] inpatient glycemic control protocol. - Objective Accuchecks BSG(last 24 hours):: 08/14/18 08/14/18 08/14/18 11:25 16:34 20:25 Glucose POC Glucose 136 H 117 H 145 H 08/15/18 08/15/18 08/15/18 05:51 09:38 09:44 Glucose 99 POC Glucose 96 107 H - Recent Pertinent Medications The patient is currently receiving: * Basal insulin: Lantus 10 units every 24 hours * Correctional Insulin: Novolog Correction per scale ACHS Goal Range: Low 120 mg/dL - High 160 mg/dL Correction Factor: 30 mg/dL/unit * Prandial insulin: Per carb ratio of 1 unit per 10 grams CHO consumed * Oral Agents: - Outpatient Anti-Diabetic Meds Trulicity 75 mcg once weekly - Assessment & Plan ASSESSMENT: * See progress note from 08/09 for more background info, in short: * Pt receiving SQ basal bolus insulin regimen for hyperglycemia secondary to baseline DM (outpatient regimen on hold),stress/infection (MRSA bacteremia on vancomycin). * Patient is currently receiving an average of 26 units of insulin per day * 10 units of basal insulin * 16 units of prandial/correctional insulin * BSGs ranging 91 - 145 mg/dl over the past 24hrs * Changes needed to insulin regimen: * AM Fasting BSG = 96 mg/dl. This is within goal range for patient based on inpatient targets and co-morbidities. Therefore Basal insulin will be continued at 10 units/day. Will only give 8 units today since patient is NPO for surgery. * Post-prandial BSGs are in range therefore no changes needed to CF/CR. * Total daily dose = 25-30 units. PLAN FOR INPATIENT GLYCEMIC CONTROL: * Continuing Lantus 8 units SQ daily * Continuing correction factor of 30 mg/dl/unit * Continuing carb ratio of 1 unit per 10 grams CHO consumed * Continuing goal range of Low 120 mg/dL - High 160 mg/dL RECOMMENDATIONS FOR DISCHARGE: * Patient's HbA1C is not that well controlled. Recommend addition of oral agent such as metformin * Please note that the plan above was derived based on current level of insulin resistance and hospital stress. These recommendations are appropriate for inpatient admission only. Plan of care upon discharge will need to be reassessed to avoid potential outpatient hypo/hyperglycemia. Thank you.
[2018-08-15] MEDS ORDERED: MIDAZOLAM HCL 1 MG/ML 2ML VIAL ONE (11:47)
[2018-08-15] MEDS ORDERED: fentaNYL citrate 100 MCG/2 ML VIAL ONE (11:47)
[2018-08-15] MEDS ORDERED: KETAMINE HCL INJ 50 MG/ML 10 ML VIAL ONE (11:48)
[2018-08-15] MEDS ORDERED: DexMEDEtomidine HCL IV 100 MCG/ML VIAL ONE ×2 (11:55→11:56)
--- NOTE | 2018-08-15 12:08 | History & Physical Bridge Note ---
Date of Service August 15, 2018 History & Physical Bridge Note I have examined the patient, reviewed the History & Physical and in the interval since the performance of the History & Physical I have noted the following changes of clinical significance: no changes noted pt marked all questions answered
--- NOTE | 2018-08-15 12:10 | Cardiology Progress Note ---
Date of Service August 15, 2018 Assessment & Plan (1) AICD (automatic cardioverter/defibrillator) present: Plan for device removal today. Based on results with procedure we may be able to restart her apixaban tomorrow. She is feeling well in the morning we may also be able to discharge her to her nursing facility. (2) Chronic combined systolic (congestive) and diastolic (congestive) heart failure: Will re-assess post-op. Will monitor eyes and nose closely. Subjectively improved. (3) CAD (coronary artery disease): History of surgical revascularization. No current symptoms suggestive of coronary insufficiency or angina (4) PAF (paroxysmal atrial fibrillation): Maintaining sinus rhythm. Will plan on starting systemic anticoagulation postoperatively. Subjective This morning the patient's primary complaint is discomfort in the sacral area. She was requesting a more comfortable mattress and pad for sitting. She denies significant breathing trouble. No pain at her implant site. Review of Systems Review of Systems: Per HPI Physical Exam Physical Exam: She is alert and oriented x3. Mood affect appear normal. She answered all questions appropriately. HEENT: Sclerae are anicteric. Neuro: Cranial nerves intact Lungs: Occasional crackles bilaterally. No expiratory wheezing. respiratory effort without use of accessory muscles. There is normal pulmonary excursion. Cardiac: The rhythm was regular with occasional ectopy. S1 and S2 were normal. There are no murmurs on examination. There is no evidence cyanosis or clubbing. There was no evidence of significant peripheral edema bilaterally. Skin: Multiple excoriations on the legs. Results & Data Vital Signs (Past 12 Hours) Vital Signs Temp Pulse Resp BP BP Pulse Ox 08/15/18 11:32 36.8 C 74 20 85/58 L 85/58 L 99 08/15/18 09:47 79 15 118/75 95 08/15/18 07:12 36.7 C 73 20 107/58 L 95 Laboratory Results Abnormal Lab Results 08/14/18 08/14/18 08/15/18 16:34 20:25 05:51 WBC RBC Hgb Hct MCV MCH MCHC RDW Std Deviation RDW Coeff of [place] Plt Count Sodium Potassium Chloride Carbon Dioxide Anion Gap BUN Creatinine Est Cr Clr Drug Dosing Est GFR ( Amer) Est GFR (Non-Af Amer) BUN/Creatinine Ratio Glucose POC Glucose 117 H 145 H 96 Calcium Magnesium 08/15/18 08/15/18 08/15/18 09:38 09:38 09:44 WBC 13.92 H RBC 4.48 Hgb 10.8 L Hct 33.3 L MCV 74.3 L MCH 24.1 L MCHC 32.4 RDW Std Deviation 53.7 H RDW Coeff of [place]rell 19.7 H Plt Count 231 Sodium 136 Potassium 3.8 Chloride 101 Carbon Dioxide 30 Anion Gap 5.0 BUN 22 H Creatinine 0.75 Est Cr Clr Drug Dosing 80.2 Est GFR ( Amer) 96.9 Est GFR (Non-Af Amer) 83.6 BUN/Creatinine Ratio 28.9 H Glucose 99 POC Glucose 107 H Calcium 8.5 Magnesium 1.6 L 08/15/18 11:29 WBC RBC Hgb Hct MCV MCH MCHC RDW Std Deviation RDW Coeff of [place] Plt Count Sodium Potassium Chloride Carbon Dioxide Anion Gap BUN Creatinine Est Cr Clr Drug Dosing Est GFR ( Amer) Est GFR (Non-Af Amer) BUN/Creatinine Ratio Glucose POC Glucose 103 H Calcium Magnesium ECG Additional Comments: Telemetry demonstrates sinus rhythm with occasional ectopy (1) CAD (coronary artery disease) Coronary Disease-Associated Artery/Lesion type: [place] artery [place] vs. transplanted heart: [place] heart Associated angina: without angina Qualified Code(s): I25.10 - Atherosclerotic heart disease of [place] coronary artery without angina pectoris
--- NOTE | 2018-08-15 12:10 | History & Physical Bridge Note ---
Date of Service August 15, 2018 History & Physical Bridge Note I have examined the patient, reviewed the History & Physical and in the interval since the performance of the History & Physical I have noted the following changes of clinical significance: no changes noted all questions answered pt marked for second toe amputation left foot
[2018-08-15] MEDS ORDERED: BUPIVACAINE 0.5 % 5 MG/1 ML MPF 30ML VIAL ONE (12:22)
--- NOTE | 2018-08-15 12:36 | Post Operative Brief Note ---
Immediate Post Op Note v1 Date of Surgery August 15, 2018 Pre & Post Diagnosis Operation Date: 08/15/18 12:20 <No data on this case meets the specified criteria> Procedure Operation Date: 08/15/18 12:20 <No data on this case meets the specified criteria> Surgeon Mckay Teresa MD Gem Carver Saba casey Estimated Blood Loss 5 Findings Consistent with Post-Op Diagnosis
[2018-08-15] MEDS ORDERED: LIDOCAINE/EPINEPHRINE 1% 20 ML VIAL ONE (12:40)
--- NOTE | 2018-08-15 12:45 | Operative Report ---
Post Operative Report Pre & Post Diagnosis Operation Date: 08/15/18 12:20 <No data on this case meets the specified criteria> Procedure Operation Date: 08/15/18 12:20 <No data on this case meets the specified criteria> Patient was brought into the operating theater supine position IV sedation given left foot prepped Betadine solution properly draped a timeout was had patient identified this point an incision was made circularly just at the level of the proximal phalanx deepened through subcutaneous tissue excellent bleeding was appreciated dissected out using the rondure we resected the distal aspect of the proximal phalanx we also cut the tenderness mechanism around the phalanx hemostasis was excellent infected but it quite easily along the sutures of the incision and subcutaneous tissue closed with interrupted 5-0 and 4-0 nylon sutures Xeroform and 2 inch Diego was applied procedure was tolerated well minimal blood loss at this point the roofing apprentice came in to explant the pacemaker addendumB Babita ROCKWELL was present throughout the procedure of the toe amputation thank you Surgeon Mckay Teresa MD Medical Field Representative B babita rockwell Estimated Blood Loss 5 Findings Consistent with Post-Op Diagnosis Specimens left foot second toe amputation Description of Procedure merda I attest to the content of the Intraoperative Record and any orders documented therein. Any exceptions are noted below.
--- NOTE | 2018-08-15 13:41 | Post Operative Brief Note ---
Cardiology Brief Post Op Date of Surgery August 15, 2018 Pre & Post Diagnosis Operation Date: 08/15/18 12:20 Pre-Op Diagnosis: SEPSIS, Left distal phalanx infection Post-Op Diagnosis: SEPSIS, Left distal phalanx infection Procedure Removal of ICD and ICD lead Investment Recovery Technician: Dhruv Bo MD Anesthesia: Conscious sedation and local lidocaine Complications: None Blood loss: 5cc Plan: Wet-dry dressing daily Investment Recovery Technician Dhruv Bo MD Traffic Or System Dispatcher none Estimated Blood Loss 5 Findings Consistent with Post-Op Diagnosis Specimens Specimen Description: b. explanted ICD CULTURE 1 device pocket Complications none Disposition Accompanied Patient To Recovery: No Disposition: PCU Overlapping Procedure I was immediately available: during the entire case.
--- NOTE | 2018-08-15 13:57 | Procedure Note ---
Procedure Note Date of Service August 15, 2018 Note Procedure performed: Explantation of ICD and ICD lead Staff surface mount technology operator: Dhruv Bo MD Indication: Patient is a 67-year-old woman who previously undergone implantation of a single-chamber ICD as primary prevention against sudden cardiac . She has a known cardiomyopathy. However, she has had episodes of staphylococcal aureus bacteremia on more than 1 occasion. As result of his felt that the device is likely infected and removal was advised. Procedure in detail: The patient was informed of the risks benefits and alternatives to the intended procedure. She understood which proceed. She was taken to the operating room in a fasting state. Anesthesia was administered by the anesthesiology service. Patient was on systemic antibiotics and no additional antibiotic was administered prior to the case. The left upper pectoral area is prepped and draped in usual sterile fashion. This area was anesthetized using subcutaneous administration of lidocaine solution. An incision was made at this site and carried down to the previously implanted device using sharp dissection. Electrocautery was also apply for dissection as well as for hemostasis. The previously implanted device and leads were then freed from the surrounding scar tissue. The lead was removed from the device. The lead helix was retracted and the stylet was advanced through the lead. Lead was subsequently extracted using traction. Fluoroscopic guidance was employed in order to confirm removal of the lead. The resulting the not me was closed with a pursestring silk suture. A capsulotomy was subsequently performed. A portion of the device pocket was subsequently closed with absorbable suture and the wound was packed with iodoform gauze. Sterile dressing was then placed on top with resulting wound. The patient tolerated procedure well. There were no immediate complications. Explanted device: Pulse generator: Package Winder [employer]. Model number [id number] serial number [id number] Explanted right ventricular ICD lead: Package Winder [employer]. Model number 6935 serial number [id number] Impression: Successful explant of single-chamber ICD and lead Coding
--- NOTE | 2018-08-15 14:10 | Anesthesiology Progress Note ---
Date of Service August 15, 2018 Anesthesia Post Procedure Vital Signs Vital Signs: Temp Pulse Pulse Resp BP BP Pulse Ox 08/15/18 13:55 37.1 C 77 18 125/77 100 08/15/18 13:46 37.1 C 79 16 126/85 100 08/15/18 11:32 36.8 C 74 20 85/58 L 85/58 L 99 08/15/18 09:47 79 15 118/75 95 08/15/18 07:12 36.7 C 73 20 107/58 L 95 08/14/18 23:13 36.7 C 71 18 106/58 L 100 08/14/18 19:21 37 C 73 18 119/68 100 08/14/18 14:53 36.8 C 68 20 119/57 L 100 Pain Intensity Buttock: Pain Intensity: 7 Sacrum: Pain Intensity: 10 Right Shoulder: Pain Intensity: 9 Transfer of Care Handoff Completed per policy Notes Mental Status: alert / awake / arousable and participated in evaluation Patient Amnestic to Procedure: Yes Nausea / Vomiting: adequately controlled Pain: adequately controlled Airway Patency, RR, SpO2: stable & adequate BP & HR: stable & adequate Hydration State: stable & adequate Anesthetic Complications: no major complications apparent
[2018-08-15] MEDS: MAGNESIUM SULFATE / D5W 1 GM/100 ML BAG IV SCH ×4 (14:44→19:26)
--- NOTE | 2018-08-15 18:45 | Hospitalist Progress Note ---
Date of Service August 15, 2018 Assessment & Plan (1) MRSA (methicillin resistant Staphylococcus aureus) septicemia: Status post second left toe amputation and pacemaker removal today. Continue vancomycin and blood cultures repeat in a.m. Once infection cleared continue with antibiotic course per infectious disease analytical consultant. (2) Acute osteomyelitis of toe of left foot: Plan as above. Status post irrigation today. (3) AICD (automatic cardioverter/defibrillator) present: Status post removal today in the setting of MRSA bacteremia. Follow-up with cardiology as outpatient nonurgently. (4) Coccyx pain: s/p fall no fracture pain control, doing well on tramadol. (5) Ischemic cardiomyopathy: Chronic, stable, compensated. Continue ethacrynic acid per home regimen as patient has a anaphylactic reaction to Lasix. (6) DVT prophylaxis: Eliquis has been held for procedures. Restart once cleared by surgery and cardiology. Full code Disposition-to home versus senior living facility at the end of this week. Liya Guillen DO [facility] Hospitalist Subjective Patient is asleep when I arrived in his fatigued upon awakening but is easily oriented. She is doing well denies any pain. She is not sure if she ate any food today. Review of systems is otherwise negative. Review of Systems Review of Systems: All systems reviewed & are unremarkable except as noted in HPI & below Physical Exam Physical Exam: CONSTITUTIONAL: WNWD, vitals as above, generally well- appearing, fatigue EYES: normal conjuctivae, no scleral icterus ENT: MMM RESPIRATORY: Clear to auscultation bilaterally. Good respiratory effort noted, no distress. No wheeze CARDIOVASCULAR: Bandage over the left anterior chest that is clean dry and intact. Heart sounds are regular rate and rhythm, S1 and 2 heard without murmurs, gallops or rubs, no JVD, no peripheral edema GASTROINTESTINAL: normal bowel sounds, soft, nontender, nondistended MUSCULOSKELETAL: generalized weakness, cannot sit up in bed on her own. head is normocephalic and atraumatic, SKIN: warm and dry, R inguinal rash has resolved. Left foot with postsurgical dressing that is clean dry and intact. NEUROLOGIC: CN 2-12 grossly intact, no gross focal deficits. PSYCHIATRIC: fatigued but oriented Results & Data Vital Signs (Past 12 Hours) Vital Signs Temp Pulse Pulse Resp BP BP Pulse Ox 08/15/18 16:21 36.5 C 67 16 121/63 99 08/15/18 15:25 36.7 C 71 16 117/62 99 08/15/18 14:53 67 18 108/53 L 100 08/15/18 14:25 36.8 C 79 18 95/42 L 95 08/15/18 14:15 36.8 C 72 18 123/63 100 08/15/18 14:10 36.8 C 99 08/15/18 14:05 73 18 123/61 99 08/15/18 13:55 37.1 C 77 18 125/77 100 08/15/18 13:46 37.1 C 79 16 126/85 100 08/15/18 11:32 36.8 C 74 20 85/58 L 85/58 L 99 08/15/18 09:47 79 15 118/75 95 08/15/18 07:12 36.7 C 73 20 107/58 L 95 Laboratory Results Short CBC 08/15/18 Range/Units 09:38 WBC 13.92 H (4.8-10.8) K/uL Hgb 10.8 L (12.0-16.0) g/dL Hct 33.3 L (37-47) % Plt Count 231 (130-400) K/uL BMP 08/15/18 09:38 Sodium 136 Potassium 3.8 Chloride 101 Carbon Dioxide 30 BUN 22 H Creatinine 0.75 Glucose 99 Calcium 8.5 Medications Administered Current Inpatient Medications Acetaminophen (Tylenol) 325 mg PO Q6H PRN PRN Reason: Pain or Fever Stop: 09/07/18 01:59 Apixaban (Eliquis) 5 mg PO BID [facility] Stop: 09/08/18 20:59 Last Admin: 08/12/18 21:28 Dose: 5 mg Documented by: Carvedilol (Coreg) 3.125 mg PO BID [facility] Stop: 09/07/18 08:59 Last Admin: 08/15/18 08:06 Dose: 3.125 mg Documented by: Dextrose (Dextrose 50%) 25 - 50 ml IV UD PRN; Protocol PRN Reason: Hypoglycemia Protocol Stop: 09/07/18 02:58 Ethacrynic Acid (Edecrin) 25 mg PO BID17 [facility] Stop: 09/10/18 12:59 Last Admin: 08/15/18 08:06 Dose: 25 mg Documented by: Glucagon (Glucagen) 1 mg SQ UD PRN; Protocol PRN Reason: Hypoglycemia Protocol Stop: 09/07/18 02:58 Glucose (Glucose 40%) 15 - 30 gm PO UD PRN; Protocol PRN Reason: Hypoglycemia Protocol Stop: 09/07/18 02:58 Glucose (Dex4 Glucose) 4 - 8 tabs PO UD PRN; Protocol PRN Reason: Hypoglycemia Protocol Stop: 09/07/18 02:58 Vancomycin HCl 1,250 mg/ (Sodium Chloride) 275 mls @ 125 mls/hr IV Q18H [facility] Stop: 09/26/18 02:59 Last Infusion: 08/15/18 04:24 Dose: Infused Documented by: Insulin Aspart (Novolog Flexpen) 0 units SC ACHS [facility] Stop: 09/14/18 16:29 Last Admin: 08/15/18 18:28 Dose: 5 units Documented by: Insulin Glargine (Lantus Solostar Pen) 10 units SC QAM [facility]; Protocol Stop: 09/15/18 08:59 Lactobacillus Acidophilus (Floranex) 1 tab PO BID [facility] Stop: 09/07/18 08:59 Last Admin: 08/15/18 08:06 Dose: 1 tab Documented by: Levothyroxine Sodium (Synthroid) 150 mcg PO DAILYBB [facility] Stop: 09/07/18 06:29 Last Admin: 08/15/18 04:36 Dose: 150 mcg Documented by: Miconazole Nitrate (Desenex) 1 appln EXT BID [facility] Stop: 09/07/18 02:58 Last Admin: 08/15/18 08:06 Dose: Not Given Documented by: Miscellaneous (Carbohydrates For Hypoglycemia) 15 - 30 gm PO UD PRN PRN Reason: Hypoglycemia Treatment Stop: 09/07/18 02:58 Last Admin: 08/11/18 08:25 Dose: 15 gm Documented by: Miscellaneous Information (Consult) 1 ea N/A UD PRN PRN Reason: Consult Stop: 09/07/18 09:25 Miscellaneous Information (Consult Glycemic Management Pharmacy) 1 ea N/A UD PRN PRN Reason: Consult Stop: 09/07/18 19:22 Morphine Sulfate (Morphine Sulfate) 4 mg IV Q2H PRN PRN Reason: Pain Stop: 08/29/18 14:31 Multivitamins (Multivitamin Tab) 1 tab PO DAILY [facility] Stop: 09/07/18 08:59 Last Admin: 08/15/18 08:07 Dose: 1 tab Documented by: Nitroglycerin (Nitrostat) 0.4 mg SL UD PRN PRN Reason: Chest Pain Stop: 09/07/18 01:59 Pregabalin (Lyrica) 300 mg PO HS [facility] Stop: 09/08/18 20:59 Last Admin: 08/14/18 20:54 Dose: 300 mg Documented by: Pregabalin (Lyrica) 150 mg PO DAILY [facility] Stop: 09/09/18 08:59 Last Admin: 08/15/18 08:11 Dose: 150 mg Documented by: Tramadol HCl (Ultram) 50 mg PO Q4H PRN PRN Reason: Pain Stop: 09/09/18 16:50 Last Admin: 08/15/18 08:11 Dose: 50 mg Documented by: Venlafaxine HCl (Effexor Extended Release) 150 mg PO DAILY [facility] Stop: 09/07/18 08:59 Last Admin: 08/15/18 08:06 Dose: 150 mg Documented by:
--- NOTE | 2018-08-15 19:25 | XRay Report ---
XR chest 2V routine CLINICAL HISTORY: 67 years-old Female presenting with ICD removal. TECHNIQUE: PA and lateral views of the chest were obtained. COMPARISON: 08/07/2018. FINDINGS: Interval removal of the implanted cardiac for bladder. Median sternotomy wires and bypass graft rings remain in place. Mediastinal surgical clips also noted. Cardiac silhouette enlarged with suspected e nlargement of the right atrium given the double density in the right retrocardiac region. Atheroscler osis of the aortic arch. Vague opacity and reticulation suggested in the periphery of the left upper lung. No other focal opacity. This appears new from prior. Trace pleural effusions may be present. No pneumothorax. Degenerative changes of the thoracic spine. Upper abdomen normal. IMPRESSION: 1. Apparent opacity in the periphery of the left upper lung. This may relate to overlapping soft tis alba density status post ICD removal or less likely represent a focal infiltrate. This is not visible on lateral view. 2. Cardiomegaly. No volume overload or pulmonary edema. Electronically signed by: José Miguel Drake M.D. 08/15/2018 7:23 PM
[2018-08-15] MEDS ORDERED: VANCOMYCIN TROUGH ONE (20:30)
--- NOTE | 2018-08-15 22:50 | Pharmacy Report ---
Pharmacy Abx Dose Short Note - Date of Service August 15, 2018 - Assessment & Plan Assessment 67 year old F receiving Vancomycin for treatment of osteomyelitis Day # 8 of antimicrobial therapy. Plan Laboratory Tests 08/15/18 20:42 Vancomycin Trough 15.7 Vancomycin * Trough level of 15.7 mcg/mL is therapeutic * Change to 1250 mg IV every 16 hours : due to indication will shoot for trough level closer to 20 mcg/mL. * Goal trough level for osteomyelitis : 15 to 20 mcg/mL: * Trough or random level ordered for: 08/17/18 @2030 Pharmacy will continue to follow and will adjust dose/frequency as necessary. Thank you.
[2018-08-16] MEDS: MoRPHine SULFATE 4 MG/ML 1 ML CARP\\VIAL IV PRN ×3 (00:08→20:42)
[2018-08-16] MEDS: LEVOTHYROXINE SODIUM 150 MCG TABLET PO SCH (04:07)
--- NOTE | 2018-08-16 04:11 | Infectious Disease Progress Nt ---
Date of Service August 15, 2018 Assessment & Plan (1) MRSA (methicillin resistant Staphylococcus aureus) septicemia: Patient with recurrent MRSA sepsis, likely source is osteomyelitis of the toe. Status post amputation and removal of ICD. Patient to continue on IV vancomycin. Will follow. (2) Acute osteomyelitis of toe of left foot: Subjective Seen in follow-up for MRSA sepsis. Now status post amputation of toe and removal of ICD. Sleepy but appears comfortable. Complaining of pain in her buttocks. Currently afebrile and hemodynamically stable. Review of Systems Review of Systems: All systems reviewed & are unremarkable except as noted in HPI & below Physical Exam Constitutional: WD/WN, vitals as above comfortable; no acute distress Eyes: PERRL, conjunctivae normal, anicteric sclerae ENMT: external ear and nose normal, oropharynx normal Neck: trachea midline, no thyromegaly neck nontender Respiratory: normal respiratory effort, lungs clear to auscultation normal percussion; no respiratory distress and does not use accessory muscles Cardiovascular: Rate/Rhythm: regular rate and regular rhythm Heart Sounds: normal S1 and normal S2; no gallop, no murmur and no cardiac rub Vessels: normal peripheral pulses; no JVD Gastrointestinal (Abdomen): normal bowel sounds, soft, nontender, no hepatosplenomegaly Musculoskeletal: no cyanosis or clubbing, extremities motor strength 5/5 Spine: thoracic spine normal to inspection and lumbar spine normal to inspection; no cervical spinal tenderness Skin: no rashes, warm and dry normal turgor, + lesion and + wound (Surgical dressing intact); no rashes Neurologic: patellar DTR's 2+ bilat, sensation intact moves all extremities and awake; no focal motor deficits Motor/Sensory: no sensory deficit Psychiatric: A+Ox3, euthymic affect Orientation: cooperative Lymphatic: no cervical or axillary lymphadenopathy no inguinal lymphad enopathy Results & Data Vital Signs (Past 12 Hours) Vital Signs Temp Pulse Pulse Resp BP Pulse Ox 08/16/18 00:17 36.7 C 77 16 125/67 97 08/15/18 21:25 78 121/78 08/15/18 16:21 36.5 C 67 16 121/63 99
[2018-08-16] MEDS: TRAMADOL HCL 50 MG TABLET PO PRN ×3 (04:12→19:08)
[2018-08-16 08:08] LABS: Creatinine Clr Calc Pharmacy 73.4 ml/min; Est GFR (Non-African American) 75.1
--- NOTE | 2018-08-16 08:58 | Anesthesiology Progress Note ---
Date of Service August 16, 2018 Anesthesia Post Procedure Vital Signs Vital Signs: Temp Pulse Pulse Pulse Resp BP BP 08/16/18 07:30 37.1 C 78 18 117/73 08/16/18 04:10 37.0 C 76 16 124/70 08/16/18 00:17 36.7 C 77 16 125/67 08/15/18 21:25 78 121/78 08/15/18 16:21 36.5 C 67 16 121/63 08/15/18 15:25 36.7 C 71 16 117/62 08/15/18 14:53 67 18 108/53 L 08/15/18 14:25 36.8 C 79 18 95/42 L 08/15/18 14:15 36.8 C 72 18 123/63 08/15/18 14:10 36.8 C 08/15/18 14:05 73 18 123/61 08/15/18 13:55 37.1 C 77 18 125/77 08/15/18 13:46 37.1 C 79 16 126/85 08/15/18 11:32 36.8 C 74 20 85/58 L 85/58 L 08/15/18 09:47 79 15 118/75 Pulse Ox 08/16/18 07:30 96 08/16/18 04:10 96 08/16/18 00:17 97 08/15/18 21:25 08/15/18 16:21 99 08/15/18 15:25 99 08/15/18 14:53 100 08/15/18 14:25 95 08/15/18 14:15 100 08/15/18 14:10 99 08/15/18 14:05 99 08/15/18 13:55 100 08/15/18 13:46 100 08/15/18 11:32 99 08/15/18 09:47 95 Pain Intensity Buttock: Pain Intensity: 7 Sacrum: Pain Intensity: 10 Right Shoulder: Pain Intensity: 9 Back: Pain Intensity: 6 Notes Mental Status: alert / awake / arousable and participated in evaluation Patient Amnestic to Procedure: Yes Nausea / Vomiting: adequately controlled Pain: adequately controlled Airway Patency, RR, SpO2: stable & adequate BP & HR: stable & adequate Hydration State: stable & adequate Anesthetic Complications: no major complications apparent and Pt Satisfied with anesthetic care
[2018-08-16] MEDS: ETHACRYNIC ACID 25 MG TAB PO SCH ×2 (10:10→16:37)
[2018-08-16] MEDS: MULTIVITAMIN TAB PO SCH (10:10)
[2018-08-16] MEDS: PREGABALIN 150 MG CAP PO SCH ×2 (10:10→20:43)
[2018-08-16] MEDS: VENLAFAXINE HCL XR 150 MG CAPXR PO SCH (10:10)
[2018-08-16] MEDS: CARVEDILOL 3.125 MG TAB PO SCH ×2 (10:11→20:46)
[2018-08-16] MEDS: INSULIN ASPART 100 UNITS/ML 3 ML PEN SC SCH ×4 (10:13→21:03)
[2018-08-16] MEDS: MICONAZOLE NITRATE POWDER 43 GM EXT SCH ×2 (10:14→21:01)
[2018-08-16] MEDS: INSULIN GLARGINE SOLOSTAR 100 UNITS/ML 3 ML PEN SC SCH (10:14)
[2018-08-16] MEDS: LACTOBACILLUS ACIDOPHILUS (FLORANEX) TAB PO SCH ×2 (10:15→20:48)
--- NOTE | 2018-08-16 10:42 | Cardiology Progress Note ---
Date of Service August 16, 2018 Assessment & Plan (1) AICD (automatic cardioverter/defibrillator) present: The device was removed yesterday. No evident complication. The wound was Re packed today with gauze. I would recommend the patient continue daily wet-to-dry dressing changes in till the pocket has closed entirely. This perhaps can be coordinated with an outpatient wound center close to her nursing facility. (2) Chronic combined systolic (congestive) and diastolic (congestive) heart failure: Subjectively doing well. She continues to have crackles at the bases bilaterally. I think we could increase her diureticto 50 milligrams twice daily. (3) CAD (coronary artery disease): History of surgical revascularization. No current symptoms suggestive of coronary insufficiency or angina (4) PAF (paroxysmal atrial fibrillation): Maintaining sinus rhythm. Think she can restart her Eliquis this evening. Subjective This morning the patient is feeling well. She has a good appetite. She has minimal discomfort at dilated the explant site or the amputation of her toe. Review of Systems Review of Systems: Per HPI Physical Exam Physical Exam: Evaluation of the explant site reveals the absence of significant ecchymosis or hematoma. Minimal tenderness. Her lung exam was abnormal in a sense that she had crackles at the bases bilaterally Cardiac examination revealed a regular rhythm with a prominent S2 Results & Data Vital Signs (Past 12 Hours) Vital Signs Temp Pulse Resp BP Pulse Ox 08/16/18 07:30 37.1 C 78 18 117/73 96 08/16/18 04:10 37.0 C 76 16 124/70 96 08/16/18 00:17 36.7 C 77 16 125/67 97 Laboratory Results Abnormal Lab Results 08/15/18 08/15/18 08/15/18 11:29 14:08 17:30 Creatinine Est Cr Clr Drug Dosing Est GFR ( Amer) Est GFR (Non-Af Amer) POC Glucose 103 H 141 H 110 H Vancomycin Trough 08/15/18 08/15/18 08/16/18 20:37 20:42 07:20 Creatinine 0.82 Est Cr Clr Drug Dosing 73.4 Est GFR ( Amer) 87.0 Est GFR (Non-Af Amer) 75.1 POC Glucose 125 H Vancomycin Trough 15.7 08/16/18 08:02 Creatinine Est Cr Clr Drug Dosing Est GFR ( Amer) Est GFR (Non-Af Amer) POC Glucose 114 H Vancomycin Trough (1) CAD (coronary artery disease) Coronary Disease-Associated Artery/Lesion type: [place] artery [place] vs. transplanted heart: [place] heart Associated angina: without angina Qualified Code(s): I25.10 - Atherosclerotic heart disease of [place] coronary artery without angina pectoris
--- NOTE | 2018-08-16 11:24 | Pharmacy Report ---
Pharmacy Glycemic Short Note 2 - Date of Service August 16, 2018 - Glycemic Short BSG Results (Last 24 hours): 08/15/18 08/15/18 08/15/18 11:29 14:08 17:30 POC Glucose 103 H 141 H 110 H 08/15/18 08/16/18 20:37 08:02 POC Glucose 125 H 114 H ASSESSMENT: * BSGs all within goal range with current orders * Basal insulin reduced slightly yesterday for NPO status for OR. Will increase back to baseline today. * No changes needed to prandial insulin - pt tolerating diet. PLAN FOR INPATIENT GLYCEMIC CONTROL: * Hold outpatient diabetes medications * Basal insulin * Lantus 10 units QAM * Bolus insulin * NovoLog per scale ACHS or Q6hrs while NPO * Goal Range: Low 110 mg/dL - High 140 mg/dL * Correction Factor: 30 mg/dL/unit * Nutritional / Prandial insulin per carb ratio of 1 unit per 10 grams CHO consumed
--- NOTE | 2018-08-16 13:32 | Surgery Progress Note ---
Date of Service August 16, 2018 Assessment & Plan (1) Acute osteomyelitis of toe of left foot: POD 1 left 2nd toe amp seen earlier by Dr. Teresa will change dressing tomorrow Subjective eating lunch, no complaints Physical Exam Musculoskeletal: left foot operative dressing in place, clean & dry Results & Data Vital Signs (Past 12 Hours) Vital Signs Temp Pulse Pulse Resp BP Pulse Ox 08/16/18 11:48 36.9 C 80 18 124/77 99 08/16/18 07:30 37.1 C 78 18 117/73 96 08/16/18 04:10 37.0 C 76 16 124/70 96
[2018-08-16] MEDS: VANCOMYCIN HCL 1,250 MG in SODIUM CHLORIDE 0.9% 250 ML IV SCH (13:43)
--- NOTE | 2018-08-16 14:42 | Infectious Disease Progress Nt ---
Date of Service August 16, 2018 Assessment & Plan (1) MRSA (methicillin resistant Staphylococcus aureus) septicemia: Patient with recurrent MRSA sepsis, likely source is osteomyelitis of the toe. Status post amputation and removal of ICD. Patient to continue on IV vancomycin. Will follow. (2) Acute osteomyelitis of toe of left foot: Subjective This morning the patient is feeling well. She has a good appetite. She has minimal discomfort at dilated the explant site or the amputation of her toe. Review of Systems Review of Systems: All systems reviewed & are unremarkable except as noted in HPI & below Physical Exam Constitutional: WD/WN, vitals as above comfortable; no acute distress Eyes: PERRL, conjunctivae normal, anicteric sclerae ENMT: external ear and nose normal, oropharynx normal Neck: trachea midline, no thyromegaly neck nontender Respiratory: normal respiratory effort, lungs clear to auscultation normal percussion; no respiratory distress and does not use accessory muscles Cardiovascular: Rate/Rhythm: regular rate and regular rhythm Heart Sounds: normal S1 and normal S2; no gallop, no murmur and no cardiac rub Vessels: normal peripheral pulses; no JVD Gastrointestinal (Abdomen): normal bowel sounds, soft, nontender, no hepatosplenomegaly Musculoskeletal: no cyanosis or clubbing, extremities motor strength 5/5 Spine: thoracic spine normal to inspection and lumbar spine normal to inspection; no cervical spinal tenderness Skin: no rashes, warm and dry normal turgor, + lesion and + wound (Surgical dressing intact); no rashes Neurologic: patellar DTR's 2+ bilat, sensation intact moves all extremities and awake; no focal motor deficits Motor/Sensory: no sensory deficit Psychiatric: A+Ox3, euthymic affect Orientation: cooperative Lymphatic: no cervical or axillary lymphadenopathy no inguinal lymphadenopathy Results & Data Vital Signs (Past 12 Hours) Vital Signs Temp Pulse Pulse Resp BP Pulse Ox 08/16/18 11:48 36.9 C 80 18 124/77 99 08/16/18 07:30 37.1 C 78 18 117/73 96 08/16/18 04:10 37.0 C 76 16 124/70 96 Laboratory Results [facility] 08/16/18 07:20 Creatinine 0.82 Diagnostic Findings Microbiology 08/15/18 12:54 Chest Gram Stain - Final 08/15/18 12:54 Chest Aerobic and Anaerobic Culture - Preliminary No growth to date. 08/10/18 07:01 Blood Aerobic Blood Culture - Final Staph aureus MRSA 08/10/18 07:01 Blood Anaerobic Blood Culture - Final No growth in Anaerobic bottle after 5 days. 08/10/18 07:11 Blood Aerobic Blood Culture - Final Staph aureus MRSA 08/10/18 07:11 Blood Anaerobic Blood Culture - Final No growth in Anaerobic bottle after 5 days. 08/09/18 07:28 Blood Aerobic Blood Culture - Preliminary Staph aureus MRSA 08/09/18 07:28 Blood Anaerobic Blood Culture - Final No growth in Anaerobic bottle after 5 days. 08/09/18 07:45 Blood Aerobic Blood Culture - Preliminary Staph aureus MRSA 08/09/18 07:45 Blood Anaerobic Blood Culture - Final No growth in Anaerobic bottle after 5 days. 08/11/18 18:45 Stool Shiga Toxin Test - Final 08/11/18 18:45 Stool Stool Culture - Final No Salmonella isolated, No Shigella isolated, No Campylobacter jejuni isolated. 08/11/18 18:45 Stool WBC Smear - Final 08/07/18 21:52 Blood Aerobic Blood Culture - Final Staph aureus MRSA 08/07/18 21:52 Blood Anaerobic Blood Culture - Final Staph aureus MRSA 08/07/18 21:33 Blood Aerobic Blood Culture - Final Staph aureus MRSA 08/07/18 21:33 Blood Anaerobic Blood Culture - Final Staph aureus MRSA
--- NOTE | 2018-08-16 19:11 | Hospitalist Progress Note ---
Date of Service August 16, 2018 Assessment & Plan (1) MRSA (methicillin resistant Staphylococcus aureus) septicemia: MRSA sepsis, likely source is osteomyelitis of the Toe S/P Left toe amputation Continue vancomycin as per ID Appreciate ID input Repeat blood cultures: pending (2) Acute osteomyelitis of toe of left foot: Plan as above Surgery following Continue wound care (3) AICD (automatic cardioverter/defibrillator) present: S/P AICD removal in the setting of MRSA bacteremia ECHO: No evidence of mass or vegetation Needs follow-up with outpatient wound center upon discharge (4) Coccyx pain: s/p fall no fracture pain control (5) Ischemic cardiomyopathy: Chronic, stable, compensated. Continue ethacrynic acid as per Cardiology H/O anaphylactic reaction to Lasix Paroxysmal atrial fibrillation Currently in sinus Plan to restart eliquis as able (6) DVT prophylaxis: Resume Eliquis as able Code Status Full code Disposition: Needs Rehab placement patient services assistant following Subjective Patient is seen and examined at bedside Denies any pain at the amputated toe site Reports mild discomfort at the site of AICD-removed site Denies any shortness of breath, dizziness, nausea Offers no other complaints Review of Systems Review of Systems: All systems reviewed & are unremarkable except as noted in HPI & below Physical Exam Physical Exam: Physical Exam: Vitals signs as noted above General Appearance:chronically ill, no apparent distress Head: normocephalic, Atraumatic Eyes: normal inspection, EOMI Neck: supple, Trachea midline Respiratory/Chest: Normal breath sounds, CTA Chest: AICD removal site in dressing Cardiovascular: S1, S2, No murmur Abdomen/GI:Soft, Non tender, Bowel sounds present Extremities/Musculoskelatal:normal inspection, left leg in dressing Neurologic/Psych:AAOX3, grossly no focal neurological deficits Skin: normal color, warm Results & Data Vital Signs (Past 12 Hours) Vital Signs Temp Pulse Pulse Resp BP Pulse Ox 08/16/18 15:12 36.9 C 73 17 111/53 L 93 08/16/18 11:48 36.9 C 80 18 124/77 99 08/16/18 07:30 37.1 C 78 18 117/73 96 Laboratory Results BMP 08/16/18 07:20 Creatinine 0.82
[2018-08-17] MEDS: TRAMADOL HCL 50 MG TABLET PO PRN ×4 (00:15→20:40)
[2018-08-17] MEDS: MoRPHine SULFATE 4 MG/ML 1 ML CARP\\VIAL IV PRN ×4 (02:30→22:28)
[2018-08-17] MEDS: VANCOMYCIN HCL 1,250 MG in SODIUM CHLORIDE 0.9% 250 ML IV SCH ×2 (04:41→20:39)
[2018-08-17] MEDS: LEVOTHYROXINE SODIUM 150 MCG TABLET PO SCH (05:45)
[2018-08-17 07:21] LABS: Hemoglobin 9.8 g/dL (12.0-16.0); Mean Corpuscular Hgb Conc 31.6 g/dL (32-36); Mean Corpuscular Volume 74.9 fL (80-100); Platelet Count 207 K/uL (130-400); RDW Coefficient of Variation 19.1 % (11.5-14.5); RDW Standard Deviation 52.3 fL (36.4-46.3); Red Blood Count 4.14 M/uL (4.2-5.4); White Blood Count 15.19 K/uL (4.8-10.8)
[2018-08-17 07:56] LABS: Creatinine Clr Calc Pharmacy 75.2 ml/min; Est GFR (African American) 89.7; Est GFR (Non-African American) 77.4
[2018-08-17] MEDS: LACTOBACILLUS ACIDOPHILUS (FLORANEX) TAB PO SCH ×2 (09:41→20:49)
[2018-08-17] MEDS: PREGABALIN 150 MG CAP PO SCH ×2 (09:41→20:55)
[2018-08-17] MEDS: MULTIVITAMIN TAB PO SCH (09:41)
[2018-08-17] MEDS: CARVEDILOL 3.125 MG TAB PO SCH (09:41)
[2018-08-17] MEDS: VENLAFAXINE HCL XR 150 MG CAPXR PO SCH (09:41)
[2018-08-17] MEDS: MICONAZOLE NITRATE POWDER 43 GM EXT SCH ×2 (09:42→20:50)
[2018-08-17] MEDS: INSULIN GLARGINE SOLOSTAR 100 UNITS/ML 3 ML PEN SC SCH (09:43)
[2018-08-17] MEDS: INSULIN ASPART 100 UNITS/ML 3 ML PEN SC SCH ×4 (09:44→22:21)
[2018-08-17] MEDS: ETHACRYNIC ACID 25 MG TAB PO SCH ×2 (09:50→16:48)
--- NOTE | 2018-08-17 10:42 | Surgery Progress Note ---
Date of Service August 17, 2018 Assessment & Plan (1) Acute osteomyelitis of toe of left foot: POD 2 left 2nd toe amp new dressing applied ambulate as ayad WBC 15 blood cx from 08/16 pending Subjective some pain in her foot after walking this morning Physical Exam Musculoskeletal: dry blood on dressing, skin edges viable, slight erythema base at of toe Results & Data Vital Signs (Past 12 Hours) Vital Signs Temp Pulse Pulse Resp BP Pulse Ox 08/17/18 06:58 36.5 C 69 18 105/68 92 08/16/18 23:22 36.5 C 81 16 121/71 97
--- NOTE | 2018-08-17 17:12 | Cardiology Progress Note ---
Date of Service August 17, 2018 Assessment & Plan (1) AICD (automatic cardioverter/defibrillator) present: Device pocket looks good. I will continue wet-to-dry dressings on a daily basis. At the time of discharge she will need to have nursing do wet-to-dry dressing changes on a daily basis and perhaps follow up with the wound clinic for periodic evaluation. (2) Chronic combined systolic (congestive) and diastolic (congestive) heart failure: Subjectively doing well. She continues to have crackles at the bases bilaterally. I think we could increase her diuretic to 50 milligrams twice daily. (3) CAD (coronary artery disease): History of surgical revascularization. No current symptoms suggestive of coronary insufficiency or angina (4) PAF (paroxysmal atrial fibrillation): Maintaining sinus rhythm. Subjective This afternoon the patient was feeling well. She has some mild discomfort in the ball of her foot and some mild discomfort at the site of her device explantation. She claims to have been walking today with a walker. Review of Systems Review of Systems: Per HPI Physical Exam Physical Exam: Evaluation of the device explant site reveals good granulation tissue. No active bleeding. No significant ecchymosis or erythema. Results & Data Vital Signs (Past 12 Hours) Vital Signs Temp Pulse Pulse Resp BP Pulse Ox 08/17/18 15:14 36.5 C 75 16 117/63 98 08/17/18 06:58 36.5 C 69 18 105/68 92 Laboratory Results Abnormal Lab Results 08/16/18 08/16/18 08/17/18 17:49 21:02 06:33 WBC RBC Hgb Hct MCV MCH MCHC RDW Std Deviation RDW Coeff of [place] Plt Count Creatinine 0.80 Est Cr Clr Drug Dosing 75.2 Est GFR ( Amer) 89.7 Est GFR (Non-Af Amer) 77.4 POC Glucose 86 117 H 08/17/18 08/17/18 08/17/18 06:33 08:10 11:59 WBC 15.19 H RBC 4.14 L Hgb 9.8 L Hct 31.0 L MCV 74.9 L MCH 23.7 L MCHC 31.6 L RDW Std Deviation 52.3 H RDW Coeff of [place] 19.1 H Plt Count 207 Creatinine Est Cr Clr Drug Dosing Est GFR ( Amer) Est GFR (Non-Af Amer) POC Glucose 72 92 Diagnostic Findings Wound cultures negative to date (1) CAD (coronary artery disease) Coronary Disease-Associated Artery/Lesion type: [place] artery [place] vs. transplanted heart: [place] heart Associated angina: without angina Qualified Code(s): I25.10 - Atherosclerotic heart disease of [place] coronary artery without angina pectoris
--- NOTE | 2018-08-17 18:35 | Hospitalist Progress Note ---
Date of Service August 17, 2018 Assessment & Plan (1) MRSA (methicillin resistant Staphylococcus aureus) septicemia: MRSA sepsis, likely source is osteomyelitis of the Toe S/P Left toe amputation POD #2 Continue vancomycin as per ID Appreciate ID input Repeat blood cultures: No growth to date (2) Acute osteomyelitis of toe of left foot: Plan as above Surgery following Continue wound care (3) AICD (automatic cardioverter/defibrillator) present: S/P AICD removal in the setting of MRSA bacteremia ECHO: No evidence of mass or vegetation Needs follow-up with outpatient wound center upon discharge (4) Coccyx pain: s/p fall no fracture pain control (5) Ischemic cardiomyopathy: Chronic, stable, compensated. Continue ethacrynic acid as per Cardiology H/O anaphylactic reaction to Lasix Increased ethacrynic acid to 50mg BID as per Cardiology recommendations Paroxysmal atrial fibrillation Currently in sinus Continue Coreg Plan to restart eliquis if OK with Surgery (6) DVT prophylaxis: Resume Eliquis as able Code Status Full code Disposition: Needs Rehab placement assistant guest services manager following Subjective Patient is seen and examined at bedside Complains of foot pain with ambulation Mild discomfort at the site of AICD-removed site is improving No new complaints Denies any shortness of breath, dizziness, nausea Offers no other complaints Review of Systems Review of Systems: All systems reviewed & are unremarkable except as noted in HPI & below Physical Exam Physical Exam: Physical Exam: Vitals signs as noted above General Appearance:chronically ill, no apparent distress Head: normocephalic, Atraumatic Eyes: normal inspection, EOMI Neck: supple, Trachea midline Respiratory/Chest: Normal breath sounds, Basal Crackles Chest: AICD removal site in dressing Cardiovascular: S1, S2, No murmur Abdomen/GI:Soft, Non tender, Bowel sounds present Extremities/Musculoskelatal:normal inspection, left leg in dressing Neurologic/Psych:AAOX3, grossly no focal neurological deficits Skin: normal color, warm Results & Data Vital Signs (Past 12 Hours) Vital Signs Temp Pulse Pulse Resp BP Pulse Ox 08/17/18 15:14 36.5 C 75 16 117/63 98 08/17/18 06:58 36.5 C 69 18 105/68 92 Laboratory Results Short CBC 08/17/18 Range/Units 06:33 WBC 15.19 H (4.8-10.8) K/uL Hgb 9.8 L (12.0-16.0) g/dL Hct 31.0 L (37-47) % Plt Count 207 (130-400) K/uL BMP 08/17/18 06:33 Creatinine 0.80
[2018-08-17] MEDS ORDERED: VANCOMYCIN TROUGH ONE (20:30)
[2018-08-17] MEDS: CARVEDILOL 6.25 MG TAB PO SCH (20:48)
--- NOTE | 2018-08-17 21:18 | Infectious Disease Progress Nt ---
Date of Service August 17, 2018 Assessment & Plan (1) MRSA (methicillin resistant Staphylococcus aureus) septicemia: Patient with recurrent MRSA sepsis, likely source is osteomyelitis of the toe. Status post amputation and removal of ICD. Follow-up blood cultures are negative, may want to consider transition to daptomycin to allow easier outpatient therapy. Will discuss with all involved. Will follow. (2) Acute osteomyelitis of toe of left foot: Subjective Complains of foot pain with ambulation Mild discomfort at the site of AICD-removed site is improving No new complaints Denies any shortness of breath, dizziness, nausea Offers no other complaints Review of Systems Review of Systems: All systems reviewed & are unremarkable except as noted in HPI & below Physical Exam Constitutional: WD/WN, vitals as above comfortable; no acute distress Eyes: PERRL, conjunctivae normal, anicteric sclerae ENMT: external ear and nose normal, oropharynx normal Neck: trachea midline, no thyromegaly neck nontender Respiratory: normal respiratory effort, lungs clear to auscultation normal percussion; no respiratory distress and does not use accessory muscles Cardiovascular: Rate/Rhythm: regular rate and regular rhythm Heart Sounds: normal S1 and normal S2; no gallop, no murmur and no cardiac rub Vessels: normal peripheral pulses; no JVD Gastrointestinal (Abdomen): normal bowel sounds, soft, nontender, no hepatosplenomegaly Musculoskeletal: no cyanosis or clubbing, extremities motor strength 5/5 Spine: thoracic spine normal to inspection and lumbar spine normal to inspection; no cervical spinal tenderness Skin: no rashes, warm and dry normal turgor, + lesion and + wound (Surgical dressing intact); no rashes Neurologic: patellar DTR's 2+ bilat, sensation intact moves all extremities and awake; no focal motor deficits Motor/Sensory: no sensory deficit Psychiatric: A+Ox3, euthymic affect Orientation: cooperative Lymphatic: no cervical or axillary lymphadenopathy no inguinal lymphadenopathy Results & Data Vital Signs (Past 12 Hours) Vital Signs Temp Pulse Resp BP Pulse Ox 08/17/18 20:47 79 123/69 95 08/17/18 15:14 36.5 C 75 16 117/63 98 Laboratory Results Short CBC 08/17/18 Range/Units 06:33 WBC 15.19 H (4.8-10.8) K/uL Hgb 9.8 L (12.0-16.0) g/dL Hct 31.0 L (37-47) % Plt Count 207 (130-400) K/uL BMP 08/17/18 06:33 Creatinine 0.80 Diagnostic Findings Microbiology 08/16/18 16:55 Blood Aerobic Blood Culture - Preliminary No growth in Aerobic bottle after 24 hours. 08/16/18 16:55 Blood Anaerobic Blood Culture - Preliminary No growth in Anaerobic bottle after 24 hours. 08/16/18 16:07 Blood Aerobic Blood Culture - Preliminary No growth in Aerobic bottle after 24 hours. 08/15/18 12:54 Chest Gram Stain - Final 08/15/18 12:54 Chest Aerobic and Anaerobic Culture - Preliminary No growth to date. 08/09/18 07:45 Blood Aerobic Blood Culture - Final Staph aureus MRSA 08/09/18 07:45 Blood Anaerobic Blood Culture - Final No growth in Anaerobic bottle after 5 days. 08/09/18 07:28 Blood Aerobic Blood Culture - Final Staph aureus MRSA 08/09/18 07:28 Blood Anaerobic Blood Culture - Final No growth in Anaerobic bottle after 5 days. 08/10/18 07:01 Blood Aerobic Blood Culture - Final Staph aureus MRSA 08/10/18 07:01 Blood Anaerobic Blood Culture - Final No growth in Anaerobic bottle after 5 days. 08/10/18 07:11 Blood Aerobic Blood Culture - Final Staph aureus MRSA 08/10/18 07:11 Blood Anaerobic Blood Culture - Final No growth in Anaerobic bottle after 5 days. 08/11/18 18:45 Stool Shiga Toxin Test - Final 08/11/18 18:45 Stool Stool Culture - Final No Salmonella isolated, No Shigella isolated, No Campylobacter jejuni isolated. 08/11/18 18:45 Stool WBC Smear - Final 08/07/18 21:52 Blood Aerobic Blood Culture - Final Staph aureus MRSA 08/07/18 21:52 Blood Anaerobic Blood Culture - Final Staph aureus MRSA 08/07/18 21:33 Blood Aerobic Blood Culture - Final Staph aureus MRSA 08/07/18 21:33 Blood Anaerobic Blood Culture - Final Staph aureus MRSA
[2018-08-17] MEDS: APIXABAN 5 MG TABLET PO SCH (22:19)
--- NOTE | 2018-08-17 22:36 | Pharmacy Report ---
Pharmacy Abx Dose Short Note - Date of Service August 17, 2018 - Assessment & Plan Assessment 67 year old F receiving Vancomycin for treatment of osteomyelitis Day # 10 of antimicrobial therapy. Plan Laboratory Tests 08/17/18 20:28 Vancomycin Trough 22.3 Vancomycin * Trough level of 22.3 mcg/mL is supratherapeutic * Change back to 1250 mg IV every 18 hours * Goal trough level for osteomyelitis : 15 to 20 mcg/mL * Trough or random level ordered for: 08/19/18 @0830 Pharmacy will continue to follow and will adjust dose/frequency as necessary. Thank you.
[2018-08-18] MEDS: LEVOTHYROXINE SODIUM 150 MCG TABLET PO SCH (06:01)
[2018-08-18 06:59] LABS: Hematocrit (blood only) 27.6 % (37-47); Hemoglobin 8.8 g/dL (12.0-16.0); Mean Corpuscular Hgb Conc 31.9 g/dL (32-36); Mean Corpuscular Volume 74.8 fL (80-100); Mean Platelet Volume 11.2 fL (7.4-10.4); Platelet Count 189 K/uL (130-400); RDW Standard Deviation 52.4 fL (36.4-46.3); Red Blood Count 3.69 M/uL (4.2-5.4); White Blood Count 13.49 K/uL (4.8-10.8)
[2018-08-18 07:34] LABS: Creatinine Clr Calc Pharmacy 67.6 ml/min; Est GFR (African American) 78.8; Magnesium 1.5 mg/dl (1.8-2.4)
--- NOTE | 2018-08-18 07:34 | Surgery Progress Note ---
Date of Service August 18, 2018 Assessment & Plan (1) Acute osteomyelitis of toe of left foot: POD 3 left 2nd toe amp seen with Dr. Teresa daily dressing changes, can shower f/u approx 1 week after d/c Subjective no complaints Physical Exam Musculoskeletal: left toe incision clean, dry, skin edges viable, redness resolving Results & Data Vital Signs (Past 12 Hours) Vital Signs Temp Pulse Resp BP Pulse Ox 08/17/18 23:52 36.7 C 76 16 127/72 95 08/17/18 20:47 79 123/69 95
[2018-08-18] MEDS ORDERED: MAGNESIUM SULFATE / D5W 1 GM/100 ML BAG IV ONE (08:45)
[2018-08-18] MEDS: LACTOBACILLUS ACIDOPHILUS (FLORANEX) TAB PO SCH ×2 (09:18→20:20)
[2018-08-18] MEDS: VENLAFAXINE HCL XR 150 MG CAPXR PO SCH (09:19)
[2018-08-18] MEDS: MULTIVITAMIN TAB PO SCH (09:19)
[2018-08-18] MEDS: APIXABAN 5 MG TABLET PO SCH ×2 (09:19→20:20)
[2018-08-18] MEDS: MICONAZOLE NITRATE POWDER 43 GM EXT SCH ×2 (09:19→20:20)
[2018-08-18] MEDS: ETHACRYNIC ACID 25 MG TAB PO SCH ×2 (09:19→18:21)
[2018-08-18] MEDS: CARVEDILOL 6.25 MG TAB PO SCH ×2 (09:21→20:20)
[2018-08-18] MEDS: INSULIN GLARGINE SOLOSTAR 100 UNITS/ML 3 ML PEN SC SCH (09:22)
[2018-08-18] MEDS: INSULIN ASPART 100 UNITS/ML 3 ML PEN SC SCH ×4 (09:24→21:31)
[2018-08-18] MEDS: PREGABALIN 150 MG CAP PO SCH ×2 (09:29→20:20)
[2018-08-18] MEDS: TRAMADOL HCL 50 MG TABLET PO PRN ×2 (09:29→13:29)
[2018-08-18] MEDS: MoRPHine SULFATE 4 MG/ML 1 ML CARP\\VIAL IV PRN ×3 (10:36→17:57)
--- NOTE | 2018-08-18 14:03 | Infectious Disease Progress Nt ---
Date of Service August 18, 2018 Assessment & Plan (1) MRSA (methicillin resistant Staphylococcus aureus) septicemia: Patient with MRSA sepsis, osteomyelitis of the toe, now status post amputation and explantation of AICD. Vancomycin now being given every 18 hours, would consider using daptomycin which would allow for once daily dosing as outpatient. Will discuss with all involved. Will follow. (2) Acute osteomyelitis of toe of left foot: Subjective Patient seen in follow-up for MRSA sepsis with osteomyelitis of the toe now status post amputation. Also status post explantation of AICD. Some pain in her foot, otherwise offers no new complaints. Remains afebrile. Review of Systems Review of Systems: All systems reviewed & are unremarkable except as noted in HPI & below Physical Exam Constitutional: WD/WN, vitals as above comfortable; no acute distress Eyes: PERRL, conjunctivae normal, anicteric sclerae ENMT: external ear and nose normal, oropharynx normal Neck: trachea midline, no thyromegaly neck nontender Respiratory: normal respiratory effort, lungs clear to auscultation normal percussion; no respiratory distress Cardiovascular: Rate/Rhythm: regular rate and regular rhythm Heart Sounds: normal S1 and normal S2; no gallop, no murmur and no cardiac rub Gastrointestinal (Abdomen): normal bowel sounds, soft, nontender, no hepatosplenomegaly Musculoskeletal: no cyanosis or clubbing, extremities motor strength 5/5 No spinal tenderness, no joint swelling or erythema Skin: no rashes, warm and dry + wound (Chest wound healing well, toe wound dressed) Neurologic: moves all extremities and awake; no focal motor deficits Motor/Sensory: no sensory deficit Psychiatric: A+Ox3, euthymic affect Lymphatic: no cervical or axillary lymphadenopathy no inguinal lymphadenopathy Results & Data Vital Signs (Past 12 Hours) Vital Signs Temp Pulse Resp BP Pulse Ox 08/18/18 08:00 36.7 C 76 16 110/69 98 Laboratory Results Short CBC 08/18/18 Range/Units 06:46 WBC 13.49 H (4.8-10.8) K/uL Hgb 8.8 L (12.0-16.0) g/dL Hct 27.6 L (37-47) % Plt Count 189 (130-400) K/uL BMP 08/18/18 06:46 Creatinine 0.89 Diagnostic Findings Microbiology 08/16/18 16:07 Blood Aerobic Blood Culture - Preliminary No growth in Aerobic bottle after 24 hours. 08/16/18 16:07 Blood Anaerobic Blood Culture - Final 08/16/18 16:55 Blood Aerobic Blood Culture - Preliminary No growth in Aerobic bottle after 24 hours. 08/16/18 16:55 Blood Anaerobic Blood Culture - Preliminary No growth in Anaerobic bottle after 24 hours. 08/15/18 12:54 Chest Gram Stain - Final 08/15/18 12:54 Chest Aerobic and Anaerobic Culture - Preliminary No growth to date. 08/09/18 07:45 Blood Aerobic Blood Culture - Final Staph aureus MRSA 08/09/18 07:45 Blood Anaerobic Blood Culture - Final No growth in Anaerobic bottle after 5 days. 08/09/18 07:28 Blood Aerobic Blood Culture - Final Staph aureus MRSA 08/09/18 07:28 Blood Anaerobic Blood Culture - Final No growth in Anaerobic bottle after 5 days. 08/10/18 07:01 Blood Aerobic Blood Culture - Final Staph aureus MRSA 08/10/18 07:01 Blood Anaerobic Blood Culture - Final No growth in Anaerobic bottle after 5 days. 08/10/18 07:11 Blood Aerobic Blood Culture - Final Staph aureus MRSA 08/10/18 07:11 Blood Anaerobic Blood Culture - Final No growth in Anaerobic bottle after 5 days. 08/11/18 18:45 Stool Shiga Toxin Test - Final 08/11/18 18:45 Stool Stool Culture - Final No Salmonella isolated, No Shigella isolated, No Campylobacter jejuni isolated. 08/11/18 18:45 Stool WBC Smear - Final 08/07/18 21:52 Blood Aerobic Blood Culture - Final Staph aureus MRSA 08/07/18 21:52 Blood Anaerobic Blood Culture - Final Staph aureus MRSA 08/07/18 21:33 Blood Aerobic Blood Culture - Final Staph aureus MRSA 08/07/18 21:33 Blood Anaerobic Blood Culture - Final Staph aureus MRSA
[2018-08-18] MEDS: VANCOMYCIN HCL 1,250 MG in SODIUM CHLORIDE 0.9% 250 ML IV SCH (14:44)
--- NOTE | 2018-08-18 15:59 | Hospitalist Progress Note ---
Date of Service August 18, 2018 Assessment & Plan (1) MRSA (methicillin resistant Staphylococcus aureus) septicemia: MRSA sepsis, likely source is osteomyelitis of the Toe S/P Left toe amputation POD #3 Continue vancomycin Consider changing to daptomycin for ease of administration upon discharge Antibiotic course duration to be determined by ID. Appreciate ID input Repeat blood cultures: No growth to date Needs follow-up with surgery upon discharge (2) Acute osteomyelitis of toe of left foot: Plan as above Surgery following Continue wound care (3) AICD (automatic cardioverter/defibrillator) present: S/P AICD removal in the setting of MRSA bacteremia ECHO: No evidence of mass or vegetation Needs follow-up with outpatient wound center upon discharge (4) Coccyx pain: s/p fall no fracture pain control (5) Ischemic cardiomyopathy: Chronic, stable, compensated. Continue ethacrynic acid as per Cardiology H/O anaphylactic reaction to Lasix Increased ethacrynic acid to 50mg BID as per Cardiology recommendations Paroxysmal atrial fibrillation Currently in sinus Continue Coreg On Eliquis for anticoagulation (6) DVT prophylaxis: Eliquis Code Status Full code Disposition: Patient prefers not to be discharged back to [facility] She prefers to go to [facility] Case management working on Placement Subjective Patient is seen and examined at bedside Foot pain is controlled No other complaints She prefers to be discharged to a different retirement facility Case management working on placement Denies any shortness of breath, dizziness, nausea Review of Systems Review of Systems: All systems reviewed & are unremarkable except as noted in HPI & below Physical Exam Physical Exam: Physical Exam: Vitals signs as noted above General Appearance:chronically ill, no apparent distress Head: normocephalic, Atraumatic Eyes: normal inspection, EOMI Neck: supple, Trachea midline Respiratory/Chest: Normal breath sounds, CTA Chest: AICD removal site in dressing Cardiovascular: S1, S2, No murmur Abdomen/GI:Soft, Non tender, Bowel sounds present Extremities/Musculoskelatal:normal inspection, left leg in dressing Neurologic/Psych:AAOX3, grossly no focal neurological deficits Skin: normal color, warm Results & Data Vital Signs (Past 12 Hours) Vital Signs Temp Pulse Resp BP Pulse Ox 08/18/18 15:27 36.7 C 73 18 112/69 100 08/18/18 08:00 36.7 C 76 16 110/69 98 Laboratory Results Short CBC 08/18/18 Range/Units 06:46 WBC 13.49 H (4.8-10.8) K/uL Hgb 8.8 L (12.0-16.0) g/dL Hct 27.6 L (37-47) % Plt Count 189 (130-400) K/uL BMP 08/18/18 06:46 Creatinine 0.89
[2018-08-18] MEDS: CARBOHYDRATES FOR HYPOGLYCEMIA PO PRN (17:46)
--- NOTE | 2018-08-18 19:28 | Cardiology Progress Note ---
Date of Service August 18, 2018 Assessment & Plan (1) AICD (automatic cardioverter/defibrillator) present: Device pocket looks good. I will continue wet-to-dry dressings on a daily basis. At the time of discharge she will need to have nursing do wet-to-dry dressing changes on a daily basis and perhaps follow up with the wound clinic for periodic evaluation. (2) Chronic combined systolic (congestive) and diastolic (congestive) heart failure: Subjectively doing well. She continues to have crackles at the bases bilaterally. No symptoms. (3) CAD (coronary artery disease): History of surgical revascularization. No current symptoms suggestive of coronary insufficiency or angina (4) PAF (paroxysmal atrial fibrillation): Maintaining sinus rhythm. Subjective This evening she is feeling well. She has not report any pain from her explant site. She states that her breathing is good she has been able to ambulate around her room with a walker. Review of Systems Review of Systems: Per HPI Physical Exam Physical Exam: Evaluation of the explant site reveals good granulation tissue. No significant erythema or drainage. No hematoma. No ecchymosis. Lungs: Occasional crackles at the bases bilaterally Cardiac: Regular rhythm. No significant murmur. Results & Data Vital Signs (Past 12 Hours) Vital Signs Temp Pulse Resp BP Pulse Ox 08/18/18 15:27 36.7 C 73 18 112/69 100 08/18/18 08:00 36.7 C 76 16 110/69 98 Laboratory Results Abnormal Lab Results 08/17/18 08/17/18 08/18/18 20:28 20:41 06:46 WBC RBC Hgb Hct MCV MCH MCHC RDW Std Deviation RDW Coeff of [place] Plt Count MPV Creatinine 0.89 Est Cr Clr Drug Dosing 67.6 Est GFR ( Amer) 78.8 Est GFR (Non-Af Amer) 68.0 POC Glucose 93 Magnesium 1.5 L Vancomycin Trough 22.3 08/18/18 08/18/18 08/18/18 06:46 08:14 12:00 WBC 13.49 H RBC 3.69 L Hgb 8.8 L Hct 27.6 L MCV 74.8 L MCH 23.8 L MCHC 31.9 L RDW Std Deviation 52.4 H RDW Coeff of [place]rell 19.0 H Plt Count 189 MPV 11.2 H Creatinine Est Cr Clr Drug Dosing Est GFR ( Amer) Est GFR (Non-Af Amer) POC Glucose 94 131 H Magnesium Vancomycin Trough 08/18/18 08/18/18 08/18/18 17:40 18:03 19:00 WBC RBC Hgb Hct MCV MCH MCHC RDW Std Deviation RDW Coeff of [place]rell Plt Count MPV Creatinine Est Cr Clr Drug Dosing Est GFR ( Amer) Est GFR (Non-Af Amer) POC Glucose 67 L* 66 L* 119 H Magnesium Vancomycin Trough (1) CAD (coronary artery disease) Coronary Disease-Associated Artery/Lesion type: [place] artery [place] vs. transplanted heart: [place] heart Associated angina: without angina Qualified Code(s): I25.10 - Atherosclerotic heart disease of [place] coronary artery without angina pectoris
[2018-08-19] MEDS: MoRPHine SULFATE 4 MG/ML 1 ML CARP\\VIAL IV PRN ×2 (00:34→07:37)
[2018-08-19] MEDS: LEVOTHYROXINE SODIUM 150 MCG TABLET PO SCH (05:48)
[2018-08-19] MEDS: TRAMADOL HCL 50 MG TABLET PO PRN ×3 (05:51→21:27)
[2018-08-19] MEDS ORDERED: VANCOMYCIN TROUGH ONE (08:30)
[2018-08-19] MEDS: MULTIVITAMIN TAB PO SCH (08:30)
[2018-08-19] MEDS: LACTOBACILLUS ACIDOPHILUS (FLORANEX) TAB PO SCH ×2 (08:31→21:28)
[2018-08-19] MEDS: VENLAFAXINE HCL XR 150 MG CAPXR PO SCH (08:31)
[2018-08-19] MEDS: ETHACRYNIC ACID 25 MG TAB PO SCH ×2 (08:31→16:48)
[2018-08-19] MEDS: APIXABAN 5 MG TABLET PO SCH ×2 (08:31→21:37)
[2018-08-19] MEDS: PREGABALIN 150 MG CAP PO SCH ×2 (08:31→21:25)
[2018-08-19] MEDS: CARVEDILOL 6.25 MG TAB PO SCH ×2 (08:31→21:26)
[2018-08-19] MEDS: MICONAZOLE NITRATE POWDER 43 GM EXT SCH ×2 (08:31→21:37)
[2018-08-19 08:43] LABS: Hematocrit (blood only) 28.5 % (37-47); Hemoglobin 9.1 g/dL (12.0-16.0)
[2018-08-19 09:10] LABS: BUN Creatinine Ratio 29.1 (10-20); Calcium 8.8 mg/dl (8.5-10.1); Creatinine Clr Calc Pharmacy 69.1 ml/min; Est GFR (Non-African American) 69.9; Magnesium 1.3 mg/dl (1.8-2.4); Potassium 3.8 mmol/L (3.5-5.1)
[2018-08-19] MEDS: VANCOMYCIN HCL 1,250 MG in SODIUM CHLORIDE 0.9% 250 ML IV SCH (09:29)
[2018-08-19] MEDS: INSULIN ASPART 100 UNITS/ML 3 ML PEN SC SCH ×4 (09:32→21:12)
[2018-08-19] MEDS: INSULIN GLARGINE SOLOSTAR 100 UNITS/ML 3 ML PEN SC SCH (09:33)
--- NOTE | 2018-08-19 09:43 | Surgery Progress Note ---
Date of Service August 19, 2018 Assessment & Plan (1) Acute osteomyelitis of toe of left foot: 08/19/2018 POD #4 s/p Amputation of 2nd toe of left foot. Pt seen with Dr. Teresa. Ok for discharge from surgical standpoint. Pt to follow-up with Dr. Teresa in 1 week after discharge. 08/18/2018 POD 3 left 2nd toe amp seen with Dr. Teresa daily dressing changes, can shower f/u approx 1 week after d/c Results & Data Vital Signs (Past 12 Hours) Vital Signs Temp Pulse Resp BP Pulse Ox 08/19/18 07:27 36.6 C 77 16 115/62 100 08/18/18 23:12 36.6 C 82 16 119/71 95
--- NOTE | 2018-08-19 09:44 | Pharmacy Report ---
Pharmacy Glycemic Short Note 2 - Date of Service August 19, 2018 - Glycemic Short BSG Results (Last 24 hours): 08/18/18 08/18/18 08/18/18 12:00 17:40 18:03 Glucose POC Glucose 131 H 67 L* 66 L* 08/18/18 08/18/18 08/18/18 19:00 20:38 22:20 Glucose POC Glucose 119 H 73 113 H 08/19/18 08/19/18 08:06 08:28 Glucose 111 H POC Glucose 102 H ASSESSMENT: * BSGs slightly below goal range for inpatient targets with current orders * Decreased basal insulin from 10 units to 8 units yesterday --> AM fasting looks better today at 102 mg/dl * Post-prandial BSGs decreasing throughout the day, Pt low prior to dinner. Will decrease CHO coverage * Goal is to maintain BSGs <200 mg/dl (ideally <150 mg/dl) to prevent post op complications PLAN FOR INPATIENT GLYCEMIC CONTROL: * Hold outpatient diabetes medications * Basal insulin: no change * Lantus 8 units QAM * Bolus insulin: reduce CHO coverage * NovoLog per scale ACHS or Q6hrs while NPO * Goal Range: Low 110 mg/dL - High 140 mg/dL * Correction Factor: 30 mg/dL/unit * Nutritional / Prandial insulin per carb ratio of 1 unit per 12 grams CHO consumed
[2018-08-19] MEDS: MAGNESIUM SULFATE / D5W 1 GM/100 ML BAG IV SCH ×2 (12:25→13:30)
[2018-08-19] MEDS ORDERED: MAGNESIUM OXIDE 400 MG TAB PO SCH (14:00)
--- NOTE | 2018-08-19 15:08 | Hospitalist Progress Note ---
Date of Service August 19, 2018 Assessment & Plan (1) MRSA (methicillin resistant Staphylococcus aureus) septicemia: MRSA sepsis, likely source is osteomyelitis of the Toe S/P Left toe amputation POD #4 Continue vancomycin Consider changing to daptomycin for ease of administration upon discharge Antibiotic course duration to be determined by ID. Appreciate ID input Repeat blood cultures: No growth to date Needs follow-up with surgery upon discharge Diarrhea In setting of ethacrynic acid/antibiotic use Hold magnesium oxide Check stool for C. difficile Decreased ethacrynic acid to home dose Hypomagnesemia: Due to GI loses Replace and monitor (2) Acute osteomyelitis of toe of left foot: Plan as above Surgery following Continue wound care (3) AICD (automatic cardioverter/defibrillator) present: S/P AICD removal in the setting of MRSA bacteremia ECHO: No evidence of mass or vegetation Needs follow-up with outpatient wound center upon discharge (4) Coccyx pain: s/p fall no fracture pain control (5) Ischemic cardiomyopathy: Chronic, stable, compensated. Continue ethacrynic acid as per Cardiology H/O anaphylactic reaction to Lasix Paroxysmal atrial fibrillation Currently in sinus Continue Coreg On Eliquis for anticoagulation (6) DVT prophylaxis: Eliquis Code Status Full code Disposition: Patient prefers not to be discharged back to [facility] She prefers to go to [facility] Case management working on Placement Subjective Patient is seen and examined at bedside States having significant diarrhea overnight Check stool for C. difficile Reports left Foot pain with ambulation No other complaints Denies any shortness of breath, dizziness, nausea, abd pain Review of Systems Review of Systems: All systems reviewed & are unremarkable except as noted in HPI & below Physical Exam Physical Exam: Physical Exam: Vitals signs as noted above General Appearance:chronically ill, no apparent distress Head: normocephalic, Atraumatic Eyes: normal inspection, EOMI Neck: supple, Trachea midline Respiratory/Chest: Normal breath sounds, CTA Chest: AICD removal site in dressing Cardiovascular: S1, S2, No murmur Abdomen/GI:Soft, Non tender, Bowel sounds present Extremities/Musculoskelatal:normal inspection, left leg in dressing Neurologic/Psych:AAOX3, grossly no focal neurological deficits Skin: normal color, warm Results & Data Vital Signs (Past 12 Hours) Vital Signs Temp Pulse Resp BP Pulse Ox 08/19/18 07:27 36.6 C 77 16 115/62 100 Laboratory Results Short CBC 08/19/18 Range/Units 08:28 Hgb 9.1 L (12.0-16.0) g/dL Hct 28.5 L (37-47) % BMP 08/19/18 08:28 Sodium 137 Potassium 3.8 Chloride 101 Carbon Dioxide 30 BUN 25 H Creatinine 0.87 Glucose 111 H Calcium 8.8
--- NOTE | 2018-08-19 15:20 | Pharmacy Report ---
Pharmacy Abx Dose Short Note - Date of Service August 19, 2018 - Assessment & Plan Assessment 67 year old F receiving vancomycin for treatment of MRSA bacteremia Day # 12 of antimicrobial therapy. Blood cultures (08/07, 08/09, and 08/10 x 2) - positive for MRSA Blood cultures (08/16) - no growth to date Plan Vancomycin * Trough level of 20.2 mcg/mL is slightly supratherapeutic, but still appropriate given vanco ROSETTE of 2 for this MRSA isolate * Most recent set of blood cultures show no growth, but continue to target high end of 15-20 due to ROSETTE of 2 * Continue dose of 1250 mg IV every 18 hours * Goal trough level for MRSA bacteremia : 15 to 20 mcg/mL * Trough level ordered for: 08/21/18 @1730 Pharmacy will continue to follow and will adjust dose/frequency as necessary. Thank you.
[2018-08-20] MEDS: VANCOMYCIN HCL 1,250 MG in SODIUM CHLORIDE 0.9% 250 ML IV SCH ×2 (03:46→20:17)
[2018-08-20] MEDS: TRAMADOL HCL 50 MG TABLET PO PRN ×4 (05:04→20:09)
[2018-08-20] MEDS: LEVOTHYROXINE SODIUM 150 MCG TABLET PO SCH (05:04)
[2018-08-20 07:05] LABS: Hematocrit (blood only) 27.2 % (37-47); Hemoglobin 8.6 g/dL (12.0-16.0); Mean Corpuscular Hgb Conc 31.6 g/dL (32-36); Mean Corpuscular Volume 74.3 fL (80-100); Mean Platelet Volume 10.9 fL (7.4-10.4); Platelet Count 229 K/uL (130-400); RDW Coefficient of Variation 18.6 % (11.5-14.5); RDW Standard Deviation 50.1 fL (36.4-46.3); Red Blood Count 3.66 M/uL (4.2-5.4); White Blood Count 12.37 K/uL (4.8-10.8)
[2018-08-20 07:38] LABS: BUN Creatinine Ratio 28.8 (10-20); Calcium 8.3 mg/dl (8.5-10.1); Creatinine Clr Calc Pharmacy 81.3 ml/min; Est GFR (African American) 98.5; Potassium 3.4 mmol/L (3.5-5.1)
[2018-08-20 07:40] LABS: Magnesium 1.4 mg/dl (1.8-2.4)
[2018-08-20] MEDS: PREGABALIN 150 MG CAP PO SCH ×2 (08:10→20:16)
[2018-08-20] MEDS: ETHACRYNIC ACID 25 MG TAB PO SCH ×2 (08:10→17:48)
[2018-08-20] MEDS: CARVEDILOL 6.25 MG TAB PO SCH ×2 (08:11→20:12)
[2018-08-20] MEDS: VENLAFAXINE HCL XR 150 MG CAPXR PO SCH (08:11)
[2018-08-20] MEDS: MULTIVITAMIN TAB PO SCH (08:11)
[2018-08-20] MEDS: LACTOBACILLUS ACIDOPHILUS (FLORANEX) TAB PO SCH ×2 (08:11→20:12)
[2018-08-20] MEDS: APIXABAN 5 MG TABLET PO SCH ×2 (08:12→20:16)
[2018-08-20] MEDS: MICONAZOLE NITRATE POWDER 43 GM EXT SCH ×2 (08:14→20:19)
[2018-08-20] MEDS: MoRPHine SULFATE 4 MG/ML 1 ML CARP\\VIAL IV PRN ×2 (08:26→17:48)
--- NOTE | 2018-08-20 08:38 | Surgery Progress Note ---
Date of Service August 20, 2018 Assessment & Plan (1) Acute osteomyelitis of toe of left foot: 08/20/2018 POD #5 s/p Amputation of 2nd toe of left foot. Pt seen and examined with Dr. Lopez. Dressing changed. Incision is clean, dry, intact. No signs of infection, sutures in place. Plan is for patient to be discharged- awaiting placement to [facility]. Follow-up instructions given- patient to follow-up with Dr. Teresa in 1 week following discharge. 08/19/2018 POD #4 s/p Amputation of 2nd toe of left foot. Pt seen with Dr. Teresa. Ok for discharge from surgical standpoint. Pt to follow-up with Dr. Teresa in 1 week after discharge. 08/18/2018 POD 3 left 2nd toe amp seen with Dr. Teresa daily dressing changes, can shower f/u approx 1 week after d/c Subjective Patient resting comfortably in bed- reports that she is doing well. Physical Exam Skin: Dressing on left foot removed- incisions is clean, dry, intact, sutures in place. Clean gauze dressing placed, Kerlex. Results & Data Vital Signs (Past 12 Hours) Vital Signs Temp Pulse Pulse Resp BP Pulse Ox 08/20/18 07:13 37.0 C 76 16 111/68 90 08/19/18 23:10 37 C 78 16 127/69 98
[2018-08-20] MEDS ORDERED: POTASSIUM CHLORIDE 20 MEQ TABCR PO STA (08:55)
[2018-08-20] MEDS: INSULIN GLARGINE SOLOSTAR 100 UNITS/ML 3 ML PEN SC SCH (09:39)
[2018-08-20] MEDS: INSULIN ASPART 100 UNITS/ML 3 ML PEN SC SCH ×4 (09:40→20:56)
[2018-08-20] MEDS: MAGNESIUM SULFATE / D5W 1 GM/100 ML BAG IV SCH ×2 (09:48→10:52)
--- NOTE | 2018-08-20 16:41 | Hospitalist Progress Note ---
Date of Service August 20, 2018 Assessment & Plan (1) MRSA (methicillin resistant Staphylococcus aureus) septicemia: MRSA sepsis, likely source is osteomyelitis of the Toe S/P Left toe amputation POD #5 Continue vancomycin Consider changing to daptomycin for ease of administration upon discharge Antibiotic course duration to be determined by ID. Appreciate ID input Repeat blood cultures: No growth to date Needs follow-up with surgery upon discharge Plan to discharge when accepeted for placement Diarrhea In setting of ethacrynic acid/antibiotic use Hold magnesium oxide stool for C. difficile: Negative Decreased ethacrynic acid to home dose Diarrhea improving Monitor Hypomagnesemia: Due to GI loses Replace and monitor as needed (2) Acute osteomyelitis of toe of left foot: Plan as above Surgery following Continue wound care (3) AICD (automatic cardioverter/defibrillator) present: S/P AICD removal in the setting of MRSA bacteremia ECHO: No evidence of mass or vegetation Needs follow-up with outpatient wound center upon discharge (4) Coccyx pain: s/p fall no fracture pain control (5) Ischemic cardiomyopathy: Chronic, stable, compensated. Continue ethacrynic acid as per Cardiology H/O anaphylactic reaction to Lasix Paroxysmal atrial fibrillation Currently in sinus Continue Coreg On Eliquis for anticoagulation (6) DVT prophylaxis: Eliquis Code Status Full code Disposition: Patient prefers not to be discharged back to [facility] She prefers to go to [facility] Case management working on Placement Subjective Patient is seen and examined at bedside Diarrhea improved Foot pain is controlled No new complaints Denies any chest pain, SOB, dizziness, nausea, abd pain Review of Systems Review of Systems: All systems reviewed & are unremarkable except as noted in HPI & below Physical Exam Physical Exam: Physical Exam: Vitals signs as noted above General Appearance:chronically ill, no apparent distress Head: normocephalic, Atraumatic Eyes: normal inspection, EOMI Neck: supple, Trachea midline Respiratory/Chest: Normal breath sounds, CTA Chest: AICD removal site in dressing Cardiovascular: S1, S2, No murmur Abdomen/GI:Soft, Non tender, Bowel sounds present Extremities/Musculoskelatal:normal inspection, left leg in dressing Neurologic/Psych:AAOX3, grossly no focal neurological deficits Skin: normal color, warm Results & Data Vital Signs (Past 12 Hours) Vital Signs Temp Pulse Pulse Resp BP Pulse Ox 08/20/18 15:17 36.6 C 79 17 110/59 L 95 08/20/18 07:13 37.0 C 76 16 111/68 90 Laboratory Results Short CBC 08/20/18 Range/Units 06:34 WBC 12.37 H (4.8-10.8) K/uL Hgb 8.6 L (12.0-16.0) g/dL Hct 27.2 L (37-47) % Plt Count 229 (130-400) K/uL BMP 08/20/18 06:34 Sodium 136 Potassium 3.4 L Chloride 100 Carbon Dioxide 30 BUN 21 H Creatinine 0.74 Glucose 88 Calcium 8.3 L
--- NOTE | 2018-08-20 19:40 | Infectious Disease Progress Nt ---
Date of Service August 20, 2018 Assessment & Plan (1) MRSA (methicillin resistant Staphylococcus aureus) septicemia: Patient with MRSA sepsis, osteomyelitis of the toe, now status post amputation and explantation of AICD. Vancomycin now being given every 18 hours, would consider using daptomycin which would allow for once daily dosing as outpatient. Will discuss with all involved. Will follow. (2) Acute osteomyelitis of toe of left foot: Subjective Patient seen in follow-up for MRSA sepsis. Diarrhea improved Foot pain is controlled No new complaints Denies any chest pain, SOB, dizziness, nausea, abd pain Remains afebrile. Review of Systems Review of Systems: All systems reviewed & are unremarkable except as noted in HPI & below Physical Exam Constitutional: WD/WN, vitals as above comfortable; no acute distress Eyes: PERRL, conjunctivae normal, anicteric sclerae ENMT: external ear and nose normal, oropharynx normal Neck: trachea midline, no thyromegaly neck nontender Respiratory: normal respiratory effort, lungs clear to auscultation normal percussion; no respiratory distress and does not use accessory muscles Cardiovascular: Rate/Rhythm: regular rate and regular rhythm Heart Sounds: normal S1 and normal S2; no gallop, no murmur and no cardiac rub Vessels: normal peripheral pulses; no JVD Gastrointestinal (Abdomen): normal bowel sounds, soft, nontender, no hepatosplenomegaly Musculoskeletal: no cyanosis or clubbing, extremities motor strength 5/5 Spine: thoracic spine normal to inspection and lumbar spine normal to inspection; no cervical spinal tenderness Skin: no rashes, warm and dry normal turgor and + wound (Chest wound heal ing well, toe wound dressed); no rashes Neurologic: patellar DTR's 2+ bilat, sensation intact moves all extremities and awake; no focal motor deficits Motor/Sensory: no sensory deficit Psychiatric: A+Ox3, euthymic affect Orientation: cooperative Lymphatic: no cervical or axillary lymphadenopathy no inguinal lymphadenopathy Results & Data Vital Signs (Past 12 Hours) Vital Signs Temp Pulse Resp BP Pulse Ox 08/20/18 15:17 36.6 C 79 17 110/59 L 95 Laboratory Results Laboratory Results - last 48 hr 08/18/18 08/18/18 08/19/18 20:38 22:20 08:06 WBC RBC Hgb Hct MCV MCH MCHC RDW Std Deviation RDW Coeff of Montrell Plt Count MPV Sodium Potassium Chloride Carbon Dioxide Anion Gap BUN Creatinine Est Cr Clr Drug Dosing Est GFR ( Amer) Est GFR (Non-Af Amer) BUN/Creatinine Ratio Glucose POC Glucose 73 113 H 102 H Calcium Magnesium Stl C. diff Tox B Gene Vancomycin Trough 08/19/18 08/19/18 08/19/18 08:28 08:28 08:28 WBC RBC Hgb 9.1 L Hct 28.5 L MCV MCH MCHC RDW Std Deviation RDW Coeff of Montrell Plt Count MPV Sodium 137 Potassium 3.8 Chloride 101 Carbon Dioxide 30 Anion Gap 6.0 BUN 25 H Creatinine 0.87 Est Cr Clr Drug Dosing 69.1 Est GFR ( Amer) 81.0 Est GFR (Non-Af Amer) 69.9 BUN/Creatinine Ratio 29.1 H Glucose 111 H POC Glucose Calcium 8.8 Magnesium 1.3 L Stl C. diff Tox B Gene Vancomycin Trough 20.2 08/19/18 08/19/18 08/19/18 12:13 17:38 20:37 WBC RBC Hgb Hct MCV MCH MCHC RDW Std Deviation RDW Coeff of Montrell Plt Count MPV Sodium Potassium Chloride Carbon Dioxide Anion Gap BUN Creatinine Est Cr Clr Drug Dosing Est GFR ( Amer) Est GFR (Non-Af Amer) BUN/Creatinine Ratio Glucose POC Glucose 121 H 109 H 97 Calcium Magnesium Stl C. diff Tox B Gene Vancomycin Trough 08/20/18 08/20/18 08/20/18 06:34 06:34 08:30 WBC 12.37 H RBC 3.66 L Hgb 8.6 L Hct 27.2 L MCV 74.3 L MCH 23.5 L MCHC 31.6 L RDW Std Deviation 50.1 H RDW Coeff of Montrell 18.6 H Plt Count 229 MPV 10.9 H Sodium 136 Potassium 3.4 L Chloride 100 Carbon Dioxide 30 Anion Gap 6.0 BUN 21 H Creatinine 0.74 Est Cr Clr Drug Dosing 81.3 Est GFR ( Amer) 98.5 Est GFR (Non-Af Amer) 85.0 BUN/Creatinine Ratio 28.8 H Glucose 88 POC Glucose 102 H Calcium 8.3 L Magnesium 1.4 L Stl C. diff Tox B Gene Vancomycin Trough 08/20/18 08/20/18 08/20/18 12:06 15:26 17:17 WBC RBC Hgb Hct MCV MCH MCHC RDW Std Deviation RDW Coeff of Montrell Plt Count MPV Sodium Potassium Chloride Carbon Dioxide Anion Gap BUN Creatinine Est Cr Clr Drug Dosing Est GFR ( Amer) Est GFR (Non-Af Amer) BUN/Creatinine Ratio Glucose POC Glucose 134 H 108 H Calcium Magnesium Stl C. diff Tox B Gene Negative Cdiff Gene Vancomycin Trough Diagnostic Findings Microbiology 08/15/18 12:54 Chest Gram Stain - Final 08/15/18 12:54 Chest Aerobic and Anaerobic Culture - Final No growth 08/16/18 16:55 Blood Aerobic Blood Culture - Preliminary No growth in Aerobic bottle after 48 hours. 08/16/18 16:55 Blood Anaerobic Blood Culture - Preliminary No growth in Anaerobic bottle after 48 hours. 08/16/18 16:07 Blood Aerobic Blood Culture - Preliminary No growth in Aerobic bottle after 48 hours. 08/16/18 16:07 Blood Anaerobic Blood Culture - Final 08/09/18 07:45 Blood Aerobic Blood Culture - Final Staph aureus MRSA 08/09/18 07:45 Blood Anaerobic Blood Culture - Final No growth in Anaerobic bottle after 5 days. 08/09/18 07:28 Blood Aerobic Blood Culture - Final Staph aureus MRSA 08/09/18 07:28 Blood Anaerobic Blood Culture - Final No growth in Anaerobic bottle after 5 days. 08/10/18 07:01 Blood Aerobic Blood Culture - Final Staph aureus MRSA 08/10/18 07:01 Blood Anaerobic Blood Culture - Final No growth in Anaerobic bottle after 5 days. 08/10/18 07:11 Blood Aerobic Blood Culture - Final Staph aureus MRSA 08/10/18 07:11 Blood Anaerobic Blood Culture - Final No growth in Anaerobic bottle after 5 days. 08/11/18 18:45 Stool Shiga Toxin Test - Final 08/11/18 18:45 Stool Stool Culture - Final No Salmonella isolated, No Shigella isolated, No Campylobacter jejuni isolated. 08/11/18 18:45 Stool WBC Smear - Final 08/07/18 21:52 Blood Aerobic Blood Culture - Final Staph aureus MRSA 08/07/18 21:52 Blood Anaerobic Blood Culture - Final Staph aureus MRSA 08/07/18 21:33 Blood Aerobic Blood Culture - Final Staph aureus MRSA 08/07/18 21:33 Blood Anaerobic Blood Culture - Final Staph aureus MRSA
[2018-08-21] MEDS: TRAMADOL HCL 50 MG TABLET PO PRN ×3 (00:14→20:54)
[2018-08-21] MEDS: LEVOTHYROXINE SODIUM 150 MCG TABLET PO SCH (05:14)
[2018-08-21 06:09] LABS: Hematocrit (blood only) 29.4 % (37-47); Hemoglobin 9.5 g/dL (12.0-16.0)
[2018-08-21 06:42] LABS: BUN Creatinine Ratio 23.1 (10-20); Calcium 8.6 mg/dl (8.5-10.1); Est GFR (Non-African American) 61.3; Magnesium 1.7 mg/dl (1.8-2.4); Potassium 3.8 mmol/L (3.5-5.1)
[2018-08-21] MEDS: MULTIVITAMIN TAB PO SCH (08:31)
[2018-08-21] MEDS: CARVEDILOL 6.25 MG TAB PO SCH ×2 (08:31→20:49)
[2018-08-21] MEDS: APIXABAN 5 MG TABLET PO SCH ×2 (08:31→20:45)
[2018-08-21] MEDS: PREGABALIN 150 MG CAP PO SCH ×2 (08:31→20:45)
[2018-08-21] MEDS: MICONAZOLE NITRATE POWDER 43 GM EXT SCH ×2 (08:31→20:46)
[2018-08-21] MEDS: VENLAFAXINE HCL XR 150 MG CAPXR PO SCH (08:31)
[2018-08-21] MEDS: LACTOBACILLUS ACIDOPHILUS (FLORANEX) TAB PO SCH ×2 (08:31→20:45)
[2018-08-21] MEDS: ETHACRYNIC ACID 25 MG TAB PO SCH ×2 (08:31→17:56)
[2018-08-21] MEDS: INSULIN ASPART 100 UNITS/ML 3 ML PEN SC SCH ×4 (09:50→21:38)
[2018-08-21] MEDS: INSULIN GLARGINE SOLOSTAR 100 UNITS/ML 3 ML PEN SC SCH (09:50)
[2018-08-21] MEDS: MAGNESIUM SULFATE / D5W 1 GM/100 ML BAG IV ONE ×2 (10:42→16:38)
[2018-08-21] MEDS ORDERED: VANCOMYCIN TROUGH ONE (14:30)
--- NOTE | 2018-08-21 15:24 | Hospitalist Progress Note ---
Date of Service August 21, 2018 Assessment & Plan (1) MRSA (methicillin resistant Staphylococcus aureus) septicemia: MRSA sepsis, likely source is osteomyelitis of the Toe S/P Left toe amputation POD #6 Continue vancomycin Consider changing to daptomycin for ease of administration upon discharge Antibiotic course duration to be determined by ID. Appreciate ID input Repeat blood cultures: No growth to date Needs follow-up with surgery upon discharge Plan to discharge when accepted for placement PICC line placement prior to discharge Needs IV Abx for 6 weeks Diarrhea In setting of ethacrynic acid/antibiotic use Hold magnesium oxide stool for C. difficile: Negative Decreased ethacrynic acid to home dose Diarrhea improving Monitor Hypomagnesemia: Due to GI loses Replace and monitor as needed (2) Acute osteomyelitis of toe of left foot: Plan as above Surgery following Continue wound care (3) AICD (automatic cardioverter/defibrillator) present: S/P AICD removal in the setting of MRSA bacteremia ECHO: No evidence of mass or vegetation Needs follow-up with outpatient wound center upon discharge (4) Coccyx pain: s/p fall no fracture pain control (5) Ischemic cardiomyopathy: Chronic, stable, compensated. Continue ethacrynic acid as per Cardiology H/O anaphylactic reaction to Lasix Paroxysmal atrial fibrillation Currently in sinus Continue Coreg On Eliquis for anticoagulation (6) DVT prophylaxis: Eliquis Code Status Full code Disposition: Patient prefers not to be discharged back to [facility] She prefers to go to [facility] Case management working on Placement Subjective Patient is seen and examined at bedside Lost IV access this morning Discussed with ID today Plan to place PICC line for IV antibiotics Had 1 BM this morning Foot pain is controlled No other complaints Denies any chest pain, SOB, dizziness, nausea, abd pain Review of Systems Review of Systems: All systems reviewed & are unremarkable except as noted in HPI & below Physical Exam Physical Exam: Physical Exam: Vitals signs as noted above General Appearance:chronically ill, no apparent distress Head: normocephalic, Atraumatic Eyes: normal inspection, EOMI Neck: supple, Trachea midline Respiratory/Chest: Normal breath sounds, CTA Chest: AICD removal site in dressing Cardiovascular: S1, S2, No murmur Abdomen/GI:Soft, Non tender, Bowel sounds present Extremities/Musculoskelatal:normal inspection, left leg in dressing Neurologic/Psych:AAOX3, grossly no focal neurological deficits Skin: normal color, warm Results & Data Vital Signs (Past 12 Hours) Vital Signs Temp Pulse Pulse Resp BP BP Pulse Ox 08/21/18 15:04 36.4 C L 71 18 100/62 99 08/21/18 07:05 36.5 C 70 16 115/75 100
[2018-08-21] MEDS: MoRPHine SULFATE 4 MG/ML 1 ML CARP\\VIAL IV PRN (15:58)
[2018-08-21] MEDS: VANCOMYCIN HCL 1,250 MG in SODIUM CHLORIDE 0.9% 250 ML IV SCH (16:28)
[2018-08-21] MEDS ORDERED: VANCOMYCIN HCL 1,250 MG in SODIUM CHLORIDE 0.9% 250 ML IV SCH (20:00)
[2018-08-22] MEDS: LEVOTHYROXINE SODIUM 150 MCG TABLET PO SCH (05:58)
[2018-08-22] MEDS: TRAMADOL HCL 50 MG TABLET PO PRN ×2 (07:42→13:25)
[2018-08-22 08:24] LABS: Hematocrit (blood only) 27.8 % (37-47); Hemoglobin 8.8 g/dL (12.0-16.0)
[2018-08-22] MEDS ORDERED: MAGNESIUM SULFATE / D5W 1 GM/100 ML BAG IV ONE (09:15)
[2018-08-22] MEDS: INSULIN ASPART 100 UNITS/ML 3 ML PEN SC SCH ×2 (09:18→13:24)
[2018-08-22] MEDS: INSULIN GLARGINE SOLOSTAR 100 UNITS/ML 3 ML PEN SC SCH (09:19)
[2018-08-22] MEDS: PREGABALIN 150 MG CAP PO SCH (09:20)
[2018-08-22] MEDS: MULTIVITAMIN TAB PO SCH (09:20)
[2018-08-22] MEDS: APIXABAN 5 MG TABLET PO SCH (09:20)
[2018-08-22] MEDS: VENLAFAXINE HCL XR 150 MG CAPXR PO SCH (09:20)
[2018-08-22] MEDS: CARVEDILOL 6.25 MG TAB PO SCH (09:20)
[2018-08-22] MEDS: LACTOBACILLUS ACIDOPHILUS (FLORANEX) TAB PO SCH (09:20)
[2018-08-22] MEDS: ETHACRYNIC ACID 25 MG TAB PO SCH (09:20)
[2018-08-22] MEDS: MICONAZOLE NITRATE POWDER 43 GM EXT SCH ×2 (09:21→09:22)
--- NOTE | 2018-08-22 13:35 | Hospitalist Progress Note ---
Date of Service August 22, 2018 Assessment & Plan (1) MRSA (methicillin resistant Staphylococcus aureus) septicemia: MRSA sepsis, likely source is osteomyelitis of the Toe S/P Left toe amputation POD # 7 Continue vancomycin ---Day #14 Need to complete 6 week course in total as per ID Appreciate ID 's input Repeat blood cultures: No growth to date Needs follow-up with surgery upon discharge Plan to discharge to SNF when accepted Diarrhea In setting of ethacrynic acid/antibiotic use Hold magnesium oxide stool for C. difficile: Negative Decreased ethacrynic acid to home dose Diarrhea improving Monitor Hypomagnesemia: Due to GI loses Replace and monitor as needed (2) Acute osteomyelitis of toe of left foot: Plan as above Surgery following Continue wound care (3) AICD (automatic cardioverter/defibrillator) present: S/P AICD removal in the setting of MRSA bacteremia ECHO: No evidence of mass or vegetation Needs follow-up with outpatient wound center upon discharge (4) Coccyx pain: s/p fall no fracture pain control (5) Ischemic cardiomyopathy: Chronic, stable, compensated. Continue ethacrynic acid as per Cardiology H/O anaphylactic reaction to Lasix Paroxysmal atrial fibrillation Currently in sinus Continue Coreg On Eliquis for anticoagulation (6) DVT prophylaxis: Eliquis Code Status Full code Disposition: Patient prefers not to be discharged back to [facility] She prefers to go to [facility] Case management working on Placement Subjective Patient is seen and examined at bedside Doing well today No new complaints Discussed with ID Foot pain is controlled No other complaints Denies any chest pain, SOB, dizziness, nausea, abd pain Review of Systems Review of Systems: All systems reviewed & are unremarkable except as noted in HPI & below Physical Exam Physical Exam: Physical Exam: Vitals signs as noted above General Appearance:chronically ill, no apparent distress Head: normocephalic, Atraumatic Eyes: normal inspection, EOMI Neck: supple, Trachea midline Respiratory/Chest: Normal breath sounds, CTA Chest: AICD removal site in dressing Cardiovascular: S1, S2, No murmur Abdomen/GI:Soft, Non tender, Bowel sounds present Extremities/Musculoskelatal:normal inspection, left leg in dressing Neurologic/Psych:AAOX3, grossly no focal neurological deficits Skin: normal color, warm Results & Data Vital Signs (Past 12 Hours) Vital Signs Temp Pulse Resp BP Pulse Ox 08/22/18 07:58 36.5 C 78 16 108/59 L 95 Laboratory Results Short CBC 08/22/18 Range/Units 07:56 Hgb 8.8 L (12.0-16.0) g/dL Hct 27.8 L (37-47) %
--- NOTE | 2018-08-22 15:36 | Discharge Summary ---
Date of Service August 22, 2018 Admission HPI Per Admitting Provider History obtained from patient, family, and records. Limited history from patient secondary to obtunded state. Medical history significant for CHF (EF 55-60%, TTE 2018), history of ICD, CAD status post CABG, PAF on Eliquis, hypertension, hyperlipidemia, mood disorder, DM 2, insulin requiring, CRI (baseline creatinine 1.3), chronic anemia (baseline hemoglobin 10-11), past tobacco/alcohol abuse, hypothyroidism, history MRSA bacteremia as per records, history of toe osteomyelitis Recent confinement May 2018 for BLANCA. Patient seen by sister 2 days ago. Patient complaining of burning discomfort in the right groin and diarrhea symptoms. Patient complaining of tailbone pain today. At the ER, patient given ketoconazole. Medical History as above Surgical History : Hysterectomy, CABG, ICD, shoulder surgery, YENI, appendectomy, Achilles tendon repair Family History : Diabetes, heart disease, COPD, skin cancer Personal/Social history : Past tobacco/alcohol abuse as per sister, shelter resident Admission Exam Per Admitting Provider GENERAL: Obtunded, no respiratory distress, obese SKIN: Pallor, warm HEENT: Pale palpebral conjunctivae, no ptosis, dry buccal mucosa NECK : Supple, short neck no tenderness CHEST : Decreased breath sounds, no tenderness HEART : RRR, no obvious murmurs ABDOMEN: Some distention, nontender, erythematous induration, right inguinal area EXTREMITIES : No LE swelling/tenderness, dressing on the left foot, no other conspicuous deformities noted NEUROLOGIC : Obtunded, no facial asymmetry, gait and stance not assessed Principal Diagnosis Discharge Information Discharge Diagnosis MRSA Septisemia S/P Left toe amputation Hypomagnesemia Discharge Goals Decrease discomfort,Improve function,Improve disease control Discharge Activity Limitations Per instructions/follow-up Discharge Data Allergies Allergy/AdvReac Type Severity Reaction Status Date / Time clindamycin Allergy Severe RASH, Verified 06/16/18 10:10 DELUSIONAL, CONVULSIONS Egg Derived Allergy Severe ANAPHYLAXIS Verified 06/16/18 10:10 furosemide Allergy Severe ANAPHYLAXIS Verified 06/16/18 10:10 rosuvastatin Allergy Severe LEG Unverified 06/16/18 10:10 WEAKNESS simvastatin Allergy Severe LEG Unverified 06/16/18 10:10 WEAKNESS Bactrim Allergy Intermediate RASH Verified 04/13/17 16:00 sulfamethoxazole Allergy Intermediate RASH Verified 06/16/18 10:10 trimethoprim Allergy Intermediate RASH Verified 06/16/18 10:10 amoxicillin Allergy Unknown . Verified 06/16/18 10:10 atorvastatin Allergy Unknown acute Verified 06/16/18 10:10 renal failure clavulanic acid Allergy Unknown . Verified 06/16/18 10:10 egg Allergy Unknown _ Verified 06/16/18 10:10 latex Allergy Unknown RASH Verified 06/16/18 10:10 losartan Allergy Unknown Unknown Verified 08/07/18 21:01 Penicillins Allergy Unknown unknown Verified 06/16/18 10:10 pravastatin Allergy Unknown Unknown Verified 08/07/18 21:01 triamcinolone Allergy Unknown RASH Verified 06/16/18 10:10 nickel Allergy Redness of Verified 06/16/18 10:10 Skin capsaicin AdvReac Severe SKIN Verified 06/16/18 10:10 SLOTHED FROM HEEL diclofenac AdvReac Severe SKIN Verified 06/16/18 10:10 SLOTHED FROM HEEL Diclopak AdvReac Severe SKIN Verified 04/13/17 16:00 SLOTHED FROM HEEL isopropyl alcohol AdvReac Severe SKIN Verified 06/16/18 10:10 SLOTHED FROM HEEL propylene glycol AdvReac Severe SKIN Verified 06/16/18 10:10 SLOTHED FROM HEEL acetaminophen AdvReac Mild VOMITING Verified 06/16/18 10:10 Consultations 08/07/18 23:50 ED Decision to Admit Stat 08/08/18 02:02 Consult Case Management - Discharge Planning Routine 08/08/18 09:26 Consult Infectious Diseases Routine 08/08/18 19:01 Consult Cardiology Routine 08/09/18 07:00 Consult General Surgery Routine Procedures Performed Operation Date: 08/15/18 12:20 Actual Procedures p Left Foot Second Toe Amputation distal phalnax(Left) - Mckay Teresa MD s Removal ICD(Left) - Daquan Bo MD CT head: No acute intracranial abnormality. Sacrum X ray: No radiographic evidence of acute osseous injury. Lumbar X ray: Multilevel degenerative changes. No radiographic evidence of acute osseous injury. CXR: 1. Cardiomegaly with volume overload and mild congestive change. No pulmonary edema. 2. Improved aeration at the right lung base in comparison the prior. Cervical CT: 1. No acute osseous injury of the cervical spine. 2. Multilevel degenerative changes. CT ABD: 1. No evidence of bowel obstruction. No evidence of free air 2. No renal, ureteral, or bladder calculi identified 3. Distended gallbladder. Cholelithiasis. 4. Trace ascites 5. Anasarca R shoulder X ray: Moderate degenerative and postoperative change as noted. No acute process. Left Toe X ray: Progressive osteomyelitis tuft distal phalanx left second toe. Repeat CXR: 1. Apparent opacity in the periphery of the left upper lung. This may relate to overlapping soft tissue density status post ICD removal or less likely represent a focal infiltrate. This is not visible on lateral view. 2. Cardiomegaly. No volume overload or pulmonary edema. Ordered Studies 08/07/18 20:08 CT cervical spine wo con Stat CT head/brain wo con Stat 08/08/18 00:19 CT abd pelvis wo con Urgent 08/15/18 12:30 FL fluoroscopy <1hr Routine Hospital Course (1) MRSA (methicillin resistant Staphylococcus aureus) septicemia: MRSA sepsis, likely source is osteomyelitis of the Toe S/P Left toe amputation POD # 7 Continue vancomycin ---Day #14 Need to complete 6 week course in total as per ID Appreciate ID 's input Repeat blood cultures: No growth to date Needs follow-up with surgery upon discharge Plan to discharge to SNF when accepted Diarrhea In setting of ethacrynic acid/antibiotic use Hold magnesium oxide stool for C. difficile: Negative Decreased ethacrynic acid to home dose Diarrhea improving Monitor Hypomagnesemia: Due to GI loses Replace and monitor as needed (2) Acute osteomyelitis of toe of left foot: Plan as above Surgery following Continue wound care (3) AICD (automatic cardioverter/defibrillator) present: S/P AICD removal in the setting of MRSA bacteremia ECHO: No evidence of mass or vegetation Needs follow-up with outpatient wound center upon discharge (4) Coccyx pain: s/p fall no fracture pain control (5) Ischemic cardiomyopathy: Chronic, stable, compensated. Continue ethacrynic acid as per Cardiology H/O anaphylactic reaction to Lasix Paroxysmal atrial fibrillation Currently in sinus Continue Coreg On Eliquis for anticoagulation (6) DVT prophylaxis: Eliquis Code Status Full code Disposition: Patient prefers not to be discharged back to [facility] She prefers to go to [facility] Case management working on Placement Total Time Total Time Spent Total Time Spent (In Minutes): 43 minutes Total Time Includes: Examination of the Patient, Discharge Planning, Medication Reconciliation, Communication With Other Providers and Other Discharge Plan Discharge Items Patient Disposition: Transfer [facility] Reason For Visit: SEPSIS Discharge Diagnosis: MRSA Septisemia S/P Left toe amputation Hypomagnesemia Discharge Goals: Decrease discomfort, Improve disease control and Improve function Activity: Per 'Additional Instructions' section Exercise/Sports: Gradually increase as tolerated Non-emergency contact: Primary Care Provider and Surgeon Call non-emergency contact if: you have any medication questions, your symptoms worsen, your pain is not controlled, your pain is worsening, your pain is unusual for you, your pain is concerning for you, you have a fever, your wound has increased redness, your wound has increased drainage and your wound pain has increased Follow-up/Referrals: Mckay Teresa MD [Surgeon] - (Call to make an appt in approx 1 week) Swapnil Pearson [Primary Care Provider] - Diet: Carb Consistent or DM2 and Heart Healthy Other Ambulatory Orders: Basic Metabolic Panel (Routine) Timeframe: 1 Week Location: Determined by Patient Ordered By: Nigel Godoy Vancomycin Trough (Routine) Timeframe: 1 Week Location: Determined by Patient Ordered By: Nigel Godoy Addtl Provider Instructions: Follow up with your PCP Dr.Jeanne Pearson in 1 week after being discharged from rehab facility Follow up with your Surgeon Dr. Teresa in 1 week following discharge Follow up with your Mines Safety Engineer in 2-4 weeks Continue wound Care to Toe and site of AICD(removed) at the SNF Complete the IV Vancomycin for 4 more weeks as recommended by YOUR MAGNESIUM OXIDE need to be held if you have uncontrolled diarrhea Get Blood Test (Vancomycin Trough and Basic metabolic panel) weekly while on IV antibiotics and follow up with your doctor Seek immediate medical attention if your symptoms reoccur or worsen Prescriptions: New vancomycin 1.25 gram recon soln 1.25 gm IV DAILY Qty: 1 RF: 0 Continued carvedilol [Coreg] 6.25 mg tablet 6.25 mg PO BID RF: 0 albuterol sulfate 90 mcg/actuation Hfa Aerosol Inhaler 1 - 2 puff INHALATION .Q4-6HRS PRN (Reason: Shortness Of Breath Or Wheezing) RF: 0 calcium citrate 200 mg (950 mg) Tablet 400 mg PO BID RF: 0 ergocalciferol (vitamin D2) 50,000 unit Capsule 50,000 units PO WK RF: 0 Eliquis 5 mg Tablet 5 mg PO BID RF: 0 ethacrynic acid 25 mg tablet 25 mg PO BID RF: 0 venlafaxine 150 mg Capsule,Extended Release 24hr 150 mg PO DAILY RF: 0 pramipexole 0.5 mg Tablet 0.75 mg PO HS RF: 0 mirtazapine 30 mg Tablet 30 mg PO HS RF: 0 levothyroxine 150 mcg tablet 150 mcg PO DAILY RF: 0 potassium chloride 20 mEq Tablet Extended Release 20 meq PO BID RF: 0 Trulicity 0.75 mg/0.5 mL pen injector 0.75 mg subcut WK RF: 0 multivitamin Tablet 1 tab PO DAILY RF: 0 Probiotic 3 billion cell Capsule 1 cap PO BID RF: 0 Lyrica 150 mg capsule 150 mg PO QAM RF: 0 magnesium oxide 400 mg magnesium Tablet 400 mg PO TID RF: 0 pregabalin 300 mg Capsule 300 mg PO HS RF: 0 Stand-Alone Forms: [facility]/Other Patient Handouts: Sepsis Discharge Orders: Discharge Order (Routine); Ordered 08/22/18 Ordered By: Nigel Godoy Skilled Items Patient informed of condition?: Yes DNR: No Discharge Level of Care: Skilled Communicable Disease: No Discharge Prognosis: Improving Admission Data Admit Date/Time: 08/08/18 01:59 Attending Provider: Nigel Godoy Admit Provider: Russell Rendon Primary Care Provider: Swapnil Pearson Other Providers: Mckay Teresa ; Daquan Bo ; Renetta Mcdaniels ; Russell Renodn ; Liya Guillen Service: Medical Other Interventions: Discharge Summary Assessment (RN) Last Done: 08/22/18 15:40 Pending Studies at Discharge: No DC Date/Time DO NOT enter until pt leaves facility: 08/22/18 16:26
--- NOTE | 2018-08-22 16:00 | Infectious Disease Progress Nt ---
Date of Service August 22, 2018 Assessment & Plan (1) MRSA (methicillin resistant Staphylococcus aureus) septicemia: Patient with MRSA sepsis, osteomyelitis of the toe, now status post amputation and explantation of AICD. Have recommended 6 weeks total of IV antibiotics. Outpatient therapy arranged. For discharge later today. (2) Acute osteomyelitis of toe of left foot: Subjective Patient seen in follow-up for staph sepsis. Remains afebrile. Foot pain controlled. Foot pain is controlled Denies any chest pain, SOB, dizziness, nausea, abd pain . No other new complaints. Review of Systems Review of Systems: All systems reviewed & are unremarkable except as noted in HPI & below Physical Exam Constitutional: WD/WN, vitals as above comfortable; no acute distress Eyes: PERRL, conjunctivae normal, anicteric sclerae ENMT: external ear and nose normal, oropharynx normal Neck: trachea midline, no thyromegaly neck nontender Respiratory: normal respiratory effort, lungs clear to auscultation normal percussion; no respiratory distress and does not use accessory muscles Cardiovascular: Rate/Rhythm: regular rate and regular rhythm Heart Sounds: normal S1 and normal S2; no gallop, no murmur and no cardiac rub Vessels: normal peripheral pulses; no JVD Gastrointestinal (Abdomen): normal bowel sounds, soft, nontender, no hepatosplenomegaly Musculoskeletal: no cyanosis or clubbing, extremities motor strength 5/5 Spine: thoracic spine normal to inspection and lumbar spine normal to inspection; no cervical spinal tenderness Skin: no rashes, warm and dry normal turgor and + wound (Chest wound healing well, toe wound dressed); no rashes Neurologic: patellar DTR's 2+ bilat, sensation intact moves all extremities and awake; no focal motor deficits Motor/Sensory: no sensory deficit Psychiatric: A+Ox3, euthymic affect Orientation: cooperative Lymphatic: no cervical or axillary lymphadenopathy no inguinal lymphadenopathy Results & Data Vital Signs (Past 12 Hours) Vital Signs Temp Pulse Pulse Pulse Resp BP BP 08/22/18 15:40 36.5 C 80 79 78 16 100/62 108/59 L 08/22/18 07:58 36.5 C 78 16 108/59 L Pulse Ox 08/22/18 15:40 95 08/22/18 07:58 95 Laboratory Results Laboratory Results - last 48 hr 08/20/18 08/20/18 08/20/18 15:26 17:17 20:38 Hgb Hct Sodium Potassium Chloride Carbon Dioxide Anion Gap BUN Creatinine Est Cr Clr Drug Dosing Est GFR ( Amer) Est GFR (Non-Af Amer) BUN/Creatinine Ratio Glucose POC Glucose 108 H 80 Calcium Magnesium Stl C. diff Tox B Gene Negative Cdiff Gene Vancomycin Trough 08/21/18 08/21/18 08/21/18 05:34 05:34 08:16 Hgb 9.5 L Hct 29.4 L Sodium 134 L Potassium 3.8 Chloride 97 L Carbon Dioxide 31 Anion Gap 6.0 BUN 22 H Creatinine 0.97 Est Cr Clr Drug Dosing 62.0 Est GFR ( Amer) 71.0 Est GFR (Non-Af Amer) 61.3 BUN/Creatinine Ratio 23.1 H Glucose 107 H POC Glucose 126 H Calcium 8.6 Magnesium 1.7 L Stl C. diff Tox B Gene Vancomycin Trough 08/21/18 08/21/18 08/21/18 12:14 15:01 17:23 Hgb Hct Sodium Potassium Chloride Carbon Dioxide Anion Gap BUN Creatinine Est Cr Clr Drug Dosing Est GFR ( Amer) Est GFR (Non-Af Amer) BUN/Creatinine Ratio Glucose POC Glucose 117 H 152 H Calcium Magnesium Stl C. diff Tox B Gene Vancomycin Trough 21.5 08/21/18 08/21/18 08/21/18 20:33 20:38 20:49 Hgb Hct Sodium Potassium Chloride Carbon Dioxide Anion Gap BUN Creatinine Est Cr Clr Drug Dosing Est GFR ( Amer) Est GFR (Non-Af Amer) BUN/Creatinine Ratio Glucose POC Glucose 67 L* 75 77 Calcium Magnesium Stl C. diff Tox B Gene Vancomycin Trough 08/22/18 08/22/18 08/22/18 07:56 07:56 08:25 Hgb 8.8 L Hct 27.8 L Sodium Potassium Chloride Carbon Dioxide Anion Gap BUN Creatinine Est Cr Clr Drug Dosing Est GFR ( Amer) Est GFR (Non-Af Amer) BUN/Creatinine Ratio Glucose POC Glucose 156 H Calcium Magnesium 1.8 Stl C. diff Tox B Gene Vancomycin Trough 08/22/18 11:54 Hgb Hct Sodium Potassium Chloride Carbon Dioxide Anion Gap BUN Creatinine Est Cr Clr Drug Dosing Est GFR ( Amer) Est GFR (Non-Af Amer) BUN/Creatinine Ratio Glucose POC Glucose 171 H Calcium Magnesium Stl C. diff Tox B Gene Vancomycin Trough Diagnostic Findings Microbiology 08/16/18 16:55 Blood Aerobic Blood Culture - Final No growth in Aerobic bottle after 5 days. 08/16/18 16:55 Blood Anaerobic Blood Culture - Final No growth in Anaerobic bottle after 5 days. 08/16/18 16:07 Blood Aerobic Blood Culture - Final No growth in Aerobic bottle after 5 days. 08/16/18 16:07 Blood Anaerobic Blood Culture - Final 08/15/18 12:54 Chest Gram Stain - Final 08/15/18 12:54 Chest Aerobic and Anaerobic Culture - Final No growth 08/09/18 07:45 Blood Aerobic Blood Culture - Final Staph aureus MRSA 08/09/18 07:45 Blood Anaerobic Blood Culture - Final No growth in Anaerobic bottle after 5 days. 08/09/18 07:28 Blood Aerobic Blood Culture - Final Staph aureus MRSA 08/09/18 07:28 Blood Anaerobic Blood Culture - Final No growth in Anaerobic bottle after 5 days. 08/10/18 07:01 Blood Aerobic Blood Culture - Final Staph aureus MRSA 08/10/18 07:01 Blood Anaerobic Blood Culture - Final No growth in Anaerobic bottle after 5 days. 08/10/18 07:11 Blood Aerobic Blood Culture - Final Staph aureus MRSA 08/10/18 07:11 Blood Anaerobic Blood Culture - Final No growth in Anaerobic bottle after 5 days. 08/11/18 18:45 Stool Shiga Toxin Test - Final 08/11/18 18:45 Stool Stool Culture - Final No Salmonella isolated, No Shigella isolated, No Campylobacter jejuni isolated. 08/11/18 18:45 Stool WBC Smear - Final 08/07/18 21:52 Blood Aerobic Blood Culture - Final Staph aureus MRSA 08/07/18 21:52 Blood Anaerobic Blood Culture - Final Staph aureus MRSA 08/07/18 21:33 Blood Aerobic Blood Culture - Final Staph aureus MRSA 08/07/18 21:33 Blood Anaerobic Blood Culture - Final Staph aureus MRSA
== END 2018-08-22 16:26 | DRG 853 ==
LOC: ED 19:51 → 2W 08-08 01:59 → SUATTDRO 08-08 01:59 → 2W 08-08 02:28 → 3N 08-14 19:08
DX: Z95.1 Presence of aortocoronary bypass graft; I25.5 Ischemic cardiomyopathy; Z88.1 Allergy status to other antibiotic agents; I48.0 Paroxysmal atrial fibrillation; I50.42 Chronic combined systolic (congestive) and diastolic (congestive) heart failure; Z95.810 Presence of automatic (implantable) cardiac defibrillator; R19.7 Diarrhea, unspecified; W19.XXXA Unspecified fall, initial encounter; B37.9 Candidiasis, unspecified; A41.02 Sepsis due to Methicillin resistant Staphylococcus aureus; Z88.0 Allergy status to penicillin; F32.9 Major depressive disorder, single episode, unspecified; E83.42 Hypomagnesemia; G47.33 Obstructive sleep apnea (adult) (pediatric); Z91.012 Allergy to eggs; Z88.8 Allergy status to other drugs, medicaments and biological substances; L97.529 Non-pressure chronic ulcer of other part of left foot with unspecified severity; Z90.710 Acquired absence of both cervix and uterus; G93.41 Metabolic encephalopathy; E78.5 Hyperlipidemia, unspecified; E03.9 Hypothyroidism, unspecified; M25.511 Pain in right shoulder; E86.0 Dehydration; K21.9 Gastro-esophageal reflux disease without esophagitis; N17.9 Acute kidney failure, unspecified; Z87.891 Personal history of nicotine dependence; E11.621 Type 2 diabetes mellitus with foot ulcer